=== PATIENT | female | born 1935 | race Caucasian/White ===

== ENCOUNTER 2017-10-27 11:05 | Emergency (ER) | payer MEDICARE, OTHER, SELFPAY ==
[2017-10-27 11:08] VITALS: BP 186/108; PULSE 92; RESP 20; TEMP 37.2; O2SAT 94
--- NOTE | 2017-10-27 11:30 | ED_ITS ---
HPI - Nausea/Vomiting/Diarrhea General Chief complaint: Nausea/Vomiting/Diarrhea Stated complaint: N/V Time Seen by Provider: 10/27/17 11:14 Source: patient and EMS Mode of arrival: EMS Limitations: no limitations History of Present Illness HPI Narrative: Patient is a 82-year-old female who presents with nausea vomiting and diarrhea. She has a history of cyclic vomiting. She was recently admitted in September at [facility] for the same She was found to be hypokalemic at that time. She started vomiting yesterday and having diffuse abdominal pain as well. No fever or chills she is being treated for a yeast infection. She complains of pain all over her abdomen. She has episodes of cyclic vomiting according to records. She has constant nausea which has been ongoing for a number of years. Related Data Home Medications Medication Instructions Recorded Confirmed fluticasone 50 mcg/actuation nasal 1 spray NASAL DAILY 08/10/17 10/27/17 spray,suspension Spacer: Inhaler Spacer Device 1 ea MISCELLANEOUS DIRECTED 10/27/17 10/27/17 albuterol sulfate [Proventil HFA] 2 puff INHALATION Q6H PRN 10/27/17 10/27/17 atorvastatin 80 mg PO QPM 10/27/17 10/27/17 fluconazole 150 mg PO QWEEK 10/27/17 10/27/17 metoprolol tartrate 50 mg PO BID 10/27/17 10/27/17 omega 9-mtn-vvx-fish oil [Fish Oil] 1 cap PO DAILY 10/27/17 10/27/17 ondansetron HCl [Zofran] 4 mg PO Q6H PRN 10/27/17 10/27/17 pantoprazole 40 mg PO DAILY 10/27/17 10/27/17 warfarin 1.5 mg PO QPM 10/27/17 10/27/17 Previous Rx's Medication Instructions Recorded loratadine 10 mg PO QDAY #90 tab 05/28/16 nitroglycerin [Nitrostat] 0.4 mg SUBLINGUAL PRN PRN #25 tab 04/20/17 hydrocodone 5 mg-acetaminophen 325 1 tab PO BID PRN #60 tab 10/12/17 mg tablet Allergies Allergy/AdvReac Type Severity Reaction Status Date / Time furosemide [FUROSEMIDE] Allergy Mild RASH Verified 10/27/17 12:11 sertraline [SERTRALINE] Allergy Mild FEELS Verified 10/27/17 12:11 DRUGGED lisinopril AdvReac Mild Cough Verified 10/27/17 13:10 Review of Systems Review of Systems GENERAL: Denies chills, fatigue, malaise, fever, sweats, travel HEENT: Denies sinus pain, ear pain, sore throat, difficulty swallowing, neck pain RESPIRATORY: Denies dyspnea, cough, wheezing, hemoptysis, sputum. CARDIOVASCULAR: Denies chest pain, palpitations, orthopnea, edema GASTROINTESTINAL: Denies nausea, vomiting, abdominal pain, diarrhea, constipation, melena. : Denies dysuria, frequency, incontinence, hematuria, urinary retention, flank pain. MUSCULOSKELETAL: Denies weakness, joint pain, or bony pain SKIN: No rash, no erythema, no pruritus NEUROLOGIC: Denies weakness, dizziness, headache, numbness, change in speech, confusion PSYCHIATRIC: No concerning psychosocial issues. 12 point review of systems is negative except for those stated above and HPI All systems reviewed & are unremarkable except as noted in HPI and below Constitutional Denies chills, Denies fever(s), Denies lethargy and Denies weakness Eyes Comments: Left eye twitching Cardiovascular Denies chest pain, Denies irregular heart rhythm, Denies lightheadedness, Denies palpitations, Denies dyspnea, Denies dyspnea on exertion and Denies orthopnea Respiratory Denies cough, Denies dyspnea, Denies dyspnea on exertion and Denies wheezing Gastrointestinal Gastrointestinal: Reports as per HPI Musculoskeletal Denies back pain, Denies muscle weakness, Denies numbness and Denies tingling Integumentary/Breasts Denies pruritus, Denies erythema, Denies rash and Denies wounds Neurologic Denies numbness, Denies tingling and Denies weakness Endocrine Denies palpitations Allergic/Immunologic Denies wheezing [facility] Medical History 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) Essential hypertension (Chronic 02/19/12) History of colon polyps (Resolved 02/19/12) Personal history of other malignant neoplasm of skin (Resolved 02/19/12) Protein C deficiency (Chronic ~05/2017) 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) Obesity with body mass index (BMI) of 30.0 to 39.9 (Chronic 02/19/12) Systolic congestive heart failure with reduced left ventricular function, NYHA class 2 (Chronic 10/26/10) Cerebrovascular accident (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 right middle cerebral artery ( Inactive 04/27/17) Anxiety (Chronic) Asthma (Chronic) CAD (coronary artery disease) (Chronic) Cervical cancer, FIGO stage I (Chronic) Cholelithiasis (Chronic) Chronic back pain (Chronic) Developmental disorder (Chronic) Fibrocystic breast disease (Chronic) GERD (gastroesophageal reflux disease) (Chronic) Hyperlipidemia (Chronic) IBS (irritable bowel syndrome) (Chronic) Breast cancer (Resolved ~2001) Measles (Resolved) Surgical History Anesthesia (Inactive) Status post arthroscopy Status post biopsy (~2014) Status post breast lumpectomy (~2008) Status post cholecystectomy Status post coronary artery bypass graft Status post hysterectomy (~2009) Social History Smoking Status: Never smoker Exam Initial Vital Signs Initial Vital Signs: Vital Signs Temperature 99.0 F 10/27/17 11:08 Pulse Rate 92 H 10/27/17 11:08 Respiratory Rate 20 10/27/17 11:08 Blood Pressure 186/108 H 10/27/17 11:08 Pulse Oximetry 94 10/27/17 11:08 GENERAL: Alert frail elderly female HEENT: Head atraumatic,EOMI, pupils reactive, left-sided facial droop, left facial twitching CARDIOVASCULAR: Regular rate and rhythm without murmurs, rubs or gallops. RESPIRATORY: Breath sounds equal bilaterally, no wheezes rales or rhonchi. ABDOMEN: Soft, diffusely tender with no localization no guarding no rebound EXTREMITIES: Normal range of motion, no clubbing or edema. Neurovascularly intact NEUROLOGICAL: Alert and oriented x4. Left-sided facial droop at baseline when facial twitching is in 10 she does have difficulty speaking but otherwise no significant a seizure or dysarthria pump technician strength is equal bilaterally SKIN: Warm, dry, no laceration, no petechiae, no rashes or lesions. Course Orders Ordered: ED Orders 10/27/17 11:18 EKG-12 Lead Stat 10/27/17 11:32 Complete Blood Count AUTO DIFF Stat Comprehensive Metabolic Panel Stat Lactate (Lactic Acid) Stat Partial Thromboplastin Time Stat Prothrombin Time INR Stat Troponin & CK Cardiac Panel Stat 10/27/17 12:20 CT abdomen pelvis w con Stat 10/27/17 13:48 CT head/brain w con Stat Discontinued Medications Sodium Chloride (Normal Saline 0.9%) 1,000 mls @ 200 mls/hr IV BOLUS ONE Stop: 10/27/17 16:17 Last Infusion: 10/27/17 14:49 Dose: 0 mls/hr Infusion: 10/27/17 12:52 Dose: 200 mls/hr Infusion: 10/27/17 12:23 Dose: 0 mls/hr Admin: 10/27/17 11:39 Dose: 200 mls/hr Ondansetron HCl (Zofran) 4 mg IV NOW ONE Stop: 10/27/17 11:19 Last Admin: 10/27/17 11:41 Dose: 4 mg Vital Signs - 8 hr 10/27/17 11:08 10/27/17 11:44 10/27/17 13:00 Temperature 99.0 F Pulse Rate 92 H 96 H 96 H Respiratory Rate 20 19 Blood Pressure 186/108 H Blood Pressure [Left Arm] 172/77 H 166/71 H Pulse Oximetry 94 93 94 10/27/17 14:12 Temperature Pulse Rate 91 H Respiratory Rate 16 Blood Pressure Blood Pressure [Left Arm] 136/76 Pulse Oximetry 96 MDM - Nausea/Vomiting/Diarrhea Lab Data Attestation: I reviewed the patient's lab results. Result diagrams: 10/27/17 11:32 10/27/17 11:32 Lab Results 10/27/17 10/27/17 10/27/17 Range/Units 11:32 11:32 11:32 WBC 8.5 (4.5-11.0) X10^3/uL RBC 4.09 (4.0-5.2) X10^6/uL Hgb 12.2 (12.0-16.0) g/dL Hct 37.0 (36-46) % MCV 90.4 (80-100) fL MCH 29.8 (26-34) PG MCHC 32.9 (30-36) % RDW 21.7 H (11.6-14.8) % Plt Count 276 (150-400) X10^3/uL Neut % (Auto) 86.3 H (50-75) % Lymph % (Auto) 10.1 L (25-40) % [place] % (Auto) 3.2 (3-14) % Eos % (Auto) 0.1 L (2-4) % Baso % (Auto) 0.3 (0-2) % Neut # (Auto) 7300 H (2647-5573) /uL RBC Morphology Not Reportable Anisocytosis 1+ H PT (10.1-12.7) SECONDS INR (0.9-1.3) APTT (26.4-36.2) SECONDS Sodium 142 (137-145) mmol/L Potassium 3.8 (3.4-5.1) mmol/L Chloride 101 (98-107) mmol/L Carbon Dioxide 32 (22-32) mmol/L BUN 5 L (7-17) mg/dL Creatinine 0.50 L (0.52-1.04) mg/dL Estimated GFR > 60.0 (>60) mL/min BUN/Creatinine Ratio 10.0 (6-22) Glucose 120 H (80-110) mg/dL Lactate 1.0 (0.7-2.1) mmol/L Calcium 8.6 (8.4-10.2) mg/dL Total Bilirubin 1.0 (0.2-1.3) mg/dL AST 18 (14-36) IU/L ALT 25 (9-52) IU/L Alkaline Phosphatase 113 (38-126) U/L Total Creatine Kinase 60 (30-135) U/L Troponin I < 0.012 (0.01-0.034) ng/mL Total Protein 6.4 (6.3-8.2) g/dL Albumin 3.3 L (3.5-5.0) g/dL Globulin 3.1 (1.7-4.1) g/dL Albumin/Globulin Ratio 1.1 (1.0-2.8) 10/27/17 Range/Units 11:32 WBC (4.5-11.0) X10^3/uL RBC (4.0-5.2) X10^6/uL Hgb (12.0-16.0) g/dL Hct (36-46) % MCV (80-100) fL MCH (26-34) PG MCHC (30-36) % RDW (11.6-14.8) % Plt Count (150-400) X10^3/uL Neut % (Auto) (50-75) % Lymph % (Auto) (25-40) % [place] % (Auto) (3-14) % Eos % (Auto) (2-4) % Baso % (Auto) (0-2) % Neut # (Auto) (6308-2611) /uL RBC Morphology Anisocytosis PT 35.3 H (10.1-12.7) SECONDS INR 3.2 H (0.9-1.3) APTT 48 H (26.4-36.2) SECONDS Sodium (137-145) mmol/L Potassium (3.4-5.1) mmol/L Chloride (98-107) mmol/L Carbon Dioxide (22-32) mmol/L BUN (7-17) mg/dL Creatinine (0.52-1.04) mg/dL Estimated GFR (>60) mL/min BUN/Creatinine Ratio (6-22) Glucose (80-110) mg/dL Lactate (0.7-2.1) mmol/L Calcium (8.4-10.2) mg/dL Total Bilirubin (0.2-1.3) mg/dL AST (14-36) IU/L ALT (9-52) IU/L Alkaline Phosphatase (38-126) U/L Total Creatine Kinase (30-135) U/L Troponin I (0.01-0.034) ng/mL Total Protein (6.3-8.2) g/dL Albumin (3.5-5.0) g/dL Globulin (1.7-4.1) g/dL Albumin/Globulin Ratio (1.0-2.8) Point of Care Testing Glucose POC 103 Urine Dip Bedside Urine Glucose Negative Bedside Urine Bilirubin - Negative Bedside Urine Ketone +/- 5 Urine Specific [place] 1.015 Bedside Urine Occult Blood - Negative Bedside Urine pH 6.0 Bedside Urine Protein - Negative Bedside Urine Urobilinogen - Negative Bedside Urine Nitrite - Negative Bedside Urine Leukocytes - Negative Esterase Imaging Data CT scan - abdomen: Radiologist's impression: PROCEDURE: CT ABDOMEN PELVIS W CON INDICATIONS: Vomiting and nausea TECHNIQUE: After the administration of oral and intravenous contrast, 5 mm thick sections acquired from the diaphragms to the symphysis. 5 mm thick coronal and sagittal reformats were performed. For radiation dose reduction, the following was used: automated exposure control, adjustment of mA and/or kV according to patient size. COMPARISON: [facility], CT, ABDOMEN/PELVIS WITH CONTRAST, 05/13/2017, 20: 38. FINDINGS: Image quality: Excellent. ABDOMEN: Lung bases: There is mild dependent atelectasis. Heart size is mildly enlarged. There is a small hiatal hernia. Solid organs: There is mild focal fatty infiltration in the anterior left hepatic lobe. The gallbladder surgically absent. There is mild extrahepatic biliary ductal dilatation likely associated with prior cholecystectomy. There is mild fatty atrophy of the pancreatic head and uncinate process. No pancreatic duct dilatation. No discrete pancreatic mass identified. Spleen is normal in size and enhancement. No adrenal nodules. There is a small right renal cyst. No hydronephrosis. Peritoneum and bowel: Although there is incomplete distention of the stomach, there is suggestion of gastric wall thickening. Small bowel and colon loops are normal in caliber and wall thickness. No pericecal inflammatory changes to suggest appendicitis. No free fluid or air. Nodes and vessels: No retroperitoneal or mesenteric adenopathy. Aorta and inferior vena cava are normal in caliber. Miscellaneous: No ventral hernias. PELVIS: Genitourinary: Bladder wall thickness is normal. Miscellaneous: No inguinal hernias or adenopathy. Bones: No suspicious bony lesions. No vertebral body compression fractures. IMPRESSION: 1. Probable gastric wall thickening with evaluation limited by nondistention of the stomach. The findings suggest a nonspecific gastritis and correlation is recommended with clinical symptoms. 2. No evidence of bowel obstruction. Dictated by: Cirilo Farrell M.D. on 10/27/2017 at 12:57 CT scan - head: Radiologist's impression: PROCEDURE: CT HEAD/BRAIN W CON INDICATIONS: headache left facial twitch, hx of cva on coumadin TECHNIQUE: 4.5 mm thick angled axial sections acquired from the foramen magnum to the vertex after the administration of intravenous contrast, with coronal and sagittal reformats. For radiation dose reduction, the following was used: automated exposure control, adjustment of mA and/or kV according to patient size. COMPARISON: [facility], CT, HEAD WITHOUT CONTRAST, 04/20/2017, 13:22. FINDINGS: Image quality: Excellent. CSF Spaces: Basal cisterns are patent. No extra-axial fluid collections. Ventricles are normal in size and shape. Brain: No midline shift. Large right-sided temporoparietal encephalomalacia in keeping with evolving infarct since 04/20/17. Anterior falx calcification Low right and No intracranial bleeds or masses. No abnormal intracranial enhancement. Cali-white interface appears normal. Skull and face: Calvarium and visualized facial bones appear intact, without suspicious lesions. There is mild left periorbital soft tissue swelling Sinuses: Visualized sinuses and mastoids are clear. IMPRESSION: No acute intracranial process. Large right temporoparietal infarct with expected evolutionary change since Mild left periorbital soft tissue swelling Dictated by: Eh Martinez M.D. on 10/27/2017 at 14:06 [facility] Narrative Medical decision making narrative: I have discussed the CT abdomen and blood work with patient and patient's family. She is actually tolerating oral fluids. However she says she has a headache in increasing facial twitching. Her INR is noted to be slightly therapeutic. MORNING CAREGIVER had a CT abdomen however it has been long enough we will get a noncontrasted CT head to be sure there is no intracranial hemorrhage. CT head is negative. This is likely patient's chronic ongoing cyclic vomiting. Blood work is within normal limits on CTs did not show any abnormalities. The family feels ready and able to take her home. The facial twitching has actually improved with a little bit of IV fluids. She really has no she new stroke symptoms Discharge Plan Departure Patient Disposition: Home Clinical Impression: Nausea & vomiting, Facial twitching Discharge Date/Time: 10/27/17 14:50 Interventions: ED Discharge Assessment Last Done: 10/27/17 14:49 Instructions: Dehydration, Clear Liquid Diet Activity Restrictions/Additional Instructions: *You have been diagnosed with cyclic vomiting, facial twitching *What to do: 1 vomiting start, use oral anti nausea medications at home, try of Gatorade or Gatorade like substance small amounts frequently *Continue to take medications as directed *Follow up with your primary care provider in 2-3 days *Return to ER if you should have persistent vomiting, increased abdominal pain, inability to take medications for days or any new, worsening or concerning symptoms Prescriptions: No Action loratadine 10 MG tablet 10 mg PO QDAY Qty: 90 RF: 1 nitroglycerin [Nitrostat] 0.4 MG tablet, sublingual 0.4 mg Sublingual PRN PRNQty: 25 RF: 0 hydrocodone-acetaminophen 5-325 mg tablet 1 tab PO BID PRN (Reason: pain) Qty: 60 RF: 0 fluticasone 50 mcg/actuation spray,suspension 1 spray NASAL DAILY RF: 0 fluconazole 150 mg tablet 150 mg PO QWEEK RF: 0 warfarin 3 mg tablet 1.5 mg PO QPM RF: 0 omega 9-xgt-ebn-fish oil [Fish Oil] 1,000 mg (120 mg-180 mg) Capsule 1 cap PO DAILY RF: 0 atorvastatin 80 mg tablet 80 mg PO QPM RF: 0 ondansetron HCl [Zofran] 4 mg tablet 4 mg PO Q6H PRN (Reason: nausea and vomiting) RF: 0 pantoprazole 40 mg tablet,delayed release (DR/EC) 40 mg PO DAILY RF: 0 metoprolol tartrate 50 mg tablet 50 mg PO BID RF: 0 albuterol sulfate [Proventil HFA] 90 mcg/actuation HFA aerosol inhaler 2 puff INHALATION Q6H PRN (Reason: shortness of breath or wheezing) RF: 0 Spacer: Inhaler Spacer Device 1 ea miscellaneous DIRECTED RF: 0 Referrals: Heather Tapia DO [Primary Care Provider] -
[2017-10-27] MEDS: SODIUM CHLORIDE 0.9% 1,000 ML 200 ML IV (11:39)
[2017-10-27] MEDS: ONDANSETRON 4 MG/2 ML INJ IV (11:41)
[2017-10-27 11:44] VITALS: BP 172/77; PULSE 96; O2SAT 93
[2017-10-27 11:45] LABS: Add Manual Diff / Slide Review NO; Basophils Percent Auto 0.3 % (0-2); Eosinophils Percent Auto 0.1 % (2-4); Hemoglobin 12.2 g/dL (12.0-16.0); Lymphocytes Percent Auto 10.1 % (25-40); Mean Corpuscular HGB Conc 32.9 % (30-36); Mean Corpuscular Hemoglobin 29.8 PG (26-34); Mean Corpuscular Volume 90.4 fL (80-100); Monocytes Percent Auto 3.2 % (3-14); Neutrophils Absolute Auto 7300 /uL (3000-5900); Neutrophils Percent Auto 86.3 % (50-75); Platelet Count 276 X10^3/uL (150-400); Red Blood Cell Count 4.09 X10^6/uL (4.0-5.2); Red Cell Distribution Width 21.7 % (11.6-14.8); White Blood Cell Count 8.5 X10^3/uL (4.5-11.0)
[2017-10-27 11:55] LABS: INR 3.2 (0.9-1.3); Prothrombin Time 35.3 SECONDS (10.1-12.7)
[2017-10-27 11:57] LABS: Alanine Aminotransferase 25 IU/L (9-52); Albumin 3.3 g/dL (3.5-5.0); Albumin Globulin Ratio 1.1 (1.0-2.8); Alkaline Phosphatase 113 U/L (38-126); Aspartate Aminotransferase 18 IU/L (14-36); Blood Urea Nitrogen 5 mg/dL (7-17); Calcium 8.6 mg/dL (8.4-10.2); Carbon Dioxide 32 mmol/L (22-32); Chloride 101 mmol/L (98-107); Creatine Kinase 60 U/L (30-135); Estimated Glomerular Filt Rate > 60.0 mL/min (>60); Globulin 3.1 g/dL (1.7-4.1); Glucose 120 mg/dL (80-110); HEMOLYSIS < 15 (0-50); Potassium 3.8 mmol/L (3.4-5.1); Sodium 142 mmol/L (137-145); Total Protein 6.4 g/dL (6.3-8.2)
[2017-10-27 11:58] LABS: PTT Partial Thromboplastin Tim 48 SECONDS (26.4-36.2)
[2017-10-27 12:09] LABS: Anisocytosis 1+; Troponin I < 0.012 ng/mL (0.01-0.034)
--- NOTE | 2017-10-27 12:20 | DI.CT.S_ITS ---
PROCEDURE: CT ABDOMEN PELVIS W CON INDICATIONS: Vomiting and nausea TECHNIQUE: After the administration of oral and intravenous contrast, 5 mm thick sections acquired from the diaphragms to the symphysis. 5 mm thick coronal and sagittal reformats were performed. For radiation dose reduction, the following was used: automated exposure control, adjustment of mA and/or kV according to patient size. COMPARISON: Located [facility], CT, ABDOMEN/PELVIS WITH CONTRAST, 05/13/2017, 20:38. FINDINGS: Image quality: Excellent. ABDOMEN: Lung bases: There is mild dependent atelectasis. Heart size is mildly enlarged. There is a small hiatal hernia. Solid organs: There is mild focal fatty infiltration in the anterior left hepatic lobe. The gallbladder surgically absent. There is mild extrahepatic biliary ductal dilatation likely associated with prior cholecystectomy. There is mild fatty atrophy of the pancreatic head and uncinate process. No pancreatic duct dilatation. No discrete pancreatic mass identified. Spleen is normal in size and enhancement. No adrenal nodules. There is a small right renal cyst. No hydronephrosis. Peritoneum and bowel: Although there is incomplete distention of the stomach, there is suggestion of gastric wall thickening. Small bowel and colon loops are normal in caliber and wall thickness. No pericecal inflammatory changes to suggest appendicitis. No free fluid or air. Nodes and vessels: No retroperitoneal or mesenteric adenopathy. Aorta and inferior vena cava are normal in caliber. Miscellaneous: No ventral hernias. PELVIS: Genitourinary: Bladder wall thickness is normal. Miscellaneous: No inguinal hernias or adenopathy. Bones: No suspicious bony lesions. No vertebral body compression fractures. IMPRESSION: 1. Probable gastric wall thickening with evaluation limited by nondistention of the stomach. The findings suggest a nonspecific gastritis and correlation is recommended with clinical symptoms. 2. No evidence of bowel obstruction. Dictated by: Cirilo Farrell M.D. on 10/27/2017 at 12:57 Approved by: Cirilo Farrell M.D. on 10/27/2017 at 13:04
[2017-10-27 13:00] VITALS: BP 166/71; PULSE 96; RESP 19; O2SAT 94
--- NOTE | 2017-10-27 13:48 | DI.CT.S_ITS ---
PROCEDURE: CT HEAD/BRAIN W CON INDICATIONS: headache left facial twitch, hx of cva on coumadin TECHNIQUE: 4.5 mm thick angled axial sections acquired from the foramen magnum to the vertex after the administration of intravenous contrast, with coronal and sagittal reformats. For radiation dose reduction, the following was used: automated exposure control, adjustment of mA and/or kV according to patient size. COMPARISON: [facility], CT, HEAD WITHOUT CONTRAST, 04/20/2017, 13:22. FINDINGS: Image quality: Excellent. CSF Spaces: Basal cisterns are patent. No extra-axial fluid collections. Ventricles are normal in size and shape. Brain: No midline shift. Large right-sided temporoparietal encephalomalacia in keeping with evolving infarct since 04/20/17. Anterior falx calcification Low right and No intracranial bleeds or masses. No abnormal intracranial enhancement. Cali-white interface appears normal. Skull and face: Calvarium and visualized facial bones appear intact, without suspicious lesions. There is mild left periorbital soft tissue swelling Sinuses: Visualized sinuses and mastoids are clear. IMPRESSION: No acute intracranial process. Large right temporoparietal infarct with expected evolutionary change since 04/20/17 Mild left periorbital soft tissue swelling Dictated by: Eh Martinez M.D. on 10/27/2017 at 14:06 Approved by: Eh Martinez M.D. on 10/27/2017 at 14:16
[2017-10-27 14:12] VITALS: BP 136/76; PULSE 91; RESP 16; O2SAT 96
== END 2017-10-27 14:50 | disposition home or self-care (01) ==
PROVIDERS: Emergency Provider Emergency Medicine; PCP Family Medicine
DX: R11.2 Nausea with vomiting, unspecified (principal); G51.4 Facial myokymia; I10 Essential (primary) hypertension; R10.9 Unspecified abdominal pain
CPT/HCPCS: 36591; 70460; 74177; 80053; 81003; 82550; 82553; 83605; 84484; 85025; 85610; 85730; 93005; 93010; 96361; 96374; 99283; 99285; J2405; Q9967

== ENCOUNTER 2017-12-03 15:51 | Emergency (ER) | payer MEDICARE, OTHER, SELFPAY ==
--- NOTE | 2017-12-03 15:43 | ED.SYNCOPE ---
HPI - Syncope <RADHA Matson - Last Filed: 12/03/17 22:15> General Chief Complaint: Syncope Stated Complaint: Syncope Time Seen by Provider: 12/03/17 15:52 Source: patient Mode of arrival: EMS Limitations: no limitations History of Present Illness HPI narrative: 82-year-old female with history of CVA and is a nonsmoker here for complaint of having a syncopal episode earlier today. She was at the dentist office and was getting ready to leave the dentist's office when she passed out in the wheelchair. She had a bowel movement at this timeframe. She denies any new neurological deficits over neurological due since from a prior strokes. She denies any fevers or chills. No shortness of breath no chest pain. She is alert and awake and oriented x3. She remembers just prior to the syncopal episode and then less than 30 sec later waking up. She denies any other concerns or complaints at this time. She denies any headache. She denies any head trauma. Related Data Home Medications Medication Instructions Recorded Confirmed Spacer: Inhaler Spacer Device 1 ea MISCELLANEOUS DIRECTED 10/27/17 12/03/17 albuterol sulfate [Proventil HFA] 2 puff INHALATION Q6H PRN 10/27/17 12/03/17 atorvastatin 80 mg PO QPM 10/27/17 12/03/17 metoprolol tartrate 50 mg PO BID 10/27/17 12/03/17 pantoprazole 40 mg PO BID 10/27/17 12/03/17 warfarin 1.5 mg PO QPM 10/27/17 12/03/17 mupirocin 1 applic TOPICAL DIRECTED 12/03/17 12/03/17 nitroglycerin [Nitrostat] 0.4 mg SUBLINGUAL PRN PRN 12/03/17 12/03/17 Previous Rx's Medication Instructions Recorded hydrocodone 5 mg-acetaminophen 325 1 tab PO Q6H PRN #120 tab 11/12/17 mg tablet gabapentin 100 mg capsule 100 mg PO Q8H #90 cap 11/30/17 Allergies Allergy/AdvReac Type Severity Reaction Status Date / Time furosemide [FUROSEMIDE] Allergy Mild RASH Verified 11/30/17 15:40 sertraline [SERTRALINE] Allergy Mild FEELS Verified 11/30/17 15:40 DRUGGED lisinopril AdvReac Mild Cough Verified 11/30/17 15:40 Review of Systems <RADHA Matson - Last Filed: 12/03/17 22:15> Constitutional Denies chills, Denies fatigue, Denies fever(s), Denies lethargy and Denies weakness Eyes Denies change in vision, Denies eye discharge, Denies irritation and Denies loss of vision ENT Ears, Nose, Mouth, and Throat: Denies change in voice, Denies neck pain and Denies sore throat Cardiovascular Reports syncope, Denies dyspnea and Denies dyspnea on exertion Respiratory Denies cough, Denies dyspnea, Denies dyspnea on exertion and Denies wheezing Gastrointestinal Gastrointestinal: Denies abdominal pain, Denies change in bowel habits, Denies diarrhea, Denies nausea and Denies vomiting Musculoskeletal Denies neck pain Integumentary/Breasts Denies pruritus, Denies erythema, Denies rash and Denies wounds Neurologic Denies confusion, Reports syncope, Denies loss of vision and Denies weakness Psychiatric Denies anxiety, Denies confusion, Denies depression, Denies homicidal ideation and Denies suicidal ideation Endocrine Denies fatigue and Denies flushing Hematologic/Lymphatic Denies easy bruising Allergic/Immunologic Denies wheezing Exam <RADHA Matson - Last Filed: 12/03/17 22:15> Initial Vital Signs Initial Vital Signs: Vital Signs Temperature 98.7 F 12/03/17 16:03 Pulse Rate 74 12/03/17 16:03 Respiratory Rate 19 12/03/17 16:03 Blood Pressure 153/114 H 12/03/17 16:03 Pulse Oximetry 96 12/03/17 16:03 Const General: cooperative and well developed Nutritional Appearance: well nourished Orientation: alert, awake, oriented x3 and not confused [facility] Mouth: oral mucosae normal and moist mucous membranes Eyes Conjunctivae: conjunctivae normal Sclera: sclerae normal Pupils: PERRL EOM: EOM intact bilaterally Resp Effort & Inspection: normal respiratory effort, able to speak in complete sentences, no respiratory distress and no use of accessory muscles Auscultation: clear to auscultation bilaterally, no rales, no rhonchi and no wheezes Cardio Rate: regular rate Rhythm: regular rhythm Heart Sounds: no click, no gallops, no murmurs and no rubs Pulses: normal peripheral pulses GI Inspection: non-distended Palpation: soft, no hepatosplenomegaly, No guarding, No pulsatile mass and No tender Auscultation: normal bowel sounds Skin General: no rashes or lesions noted, No jaundice and No petechiae Neuro General: alert, oriented x3, gait normal and no focal motor deficits Speech: speech normal Extrem General: full ROM, no clubbing, cyanosis or edema, no pedal edema and no calf tenderness <Janak Rincon DO - Last Filed: 12/04/17 07:12> Initial Vital Signs Initial Vital Signs: Vital Signs Temperature 98.7 F 12/03/17 16:03 Pulse Rate 74 12/03/17 16:03 Respiratory Rate 19 12/03/17 16:03 Blood Pressure 153/114 H 12/03/17 16:03 Pulse Oximetry 96 12/03/17 16:03 Course <RADHA Matson - Last Filed: 12/03/17 22:15> Orders Ordered: Discontinued Medications Sodium Chloride (Normal Saline 0.9%) 500 mls @ 1,000 mls/hr IV BOLUS ONE Stop: 12/03/17 19:52 Last Admin: 12/03/17 19:24 Dose: 1,000 mls/hr Vital Signs - 8 hr 12/03/17 16:03 12/03/17 18:35 12/03/17 20:34 Temperature 98.7 F 98.6 F Pulse Rate 74 82 82 Respiratory Rate 19 18 20 Blood Pressure 153/114 H 155/67 H Blood Pressure [Left Arm] 166/93 H Pulse Oximetry 96 97 97 <Janak Rincon DO - Last Filed: 12/04/17 07:12> Orders Ordered: Discontinued Medications Sodium Chloride (Normal Saline 0.9%) 500 mls @ 1,000 mls/hr IV BOLUS ONE Stop: 12/03/17 19:52 Last Admin: 12/03/17 19:24 Dose: 1,000 mls/hr Vital Signs - 8 hr 12/03/17 16:03 12/03/17 18:35 12/03/17 20:34 Temperature 98.7 F 98.6 F Pulse Rate 74 82 82 Respiratory Rate 19 18 20 Blood Pressure 153/114 H 155/67 H Blood Pressure [Left Arm] 166/93 H Pulse Oximetry 96 97 97 MDM - Syncope <Taqueria RADHA Ram - Last Filed: 12/03/17 22:15> Lab Data Result diagrams: 12/03/17 16:50 12/03/17 16:50 Lab Results 12/03/17 12/03/17 12/03/17 Range/Units 16:50 16:50 19:08 WBC 8.7 (4.5-11.0) X10^3/uL RBC 3.82 L (4.0-5.2) X10^6/uL Hgb 12.0 (12.0-16.0) g/dL Hct 37.2 (36-46) % MCV 97.4 (80-100) fL MCH 31.3 (26-34) PG MCHC 32.1 (30-36) % RDW 16.5 H (11.6-14.8) % Plt Count 216 (150-400) X10^3/uL Neut % (Auto) 72.1 (50-75) % Lymph % (Auto) 20.1 L (25-40) % [place] % (Auto) 6.5 (3-14) % Eos % (Auto) 0.7 L (2-4) % Baso % (Auto) 0.6 (0-2) % Neut # (Auto) 6300 H (9145-0900) /uL PT 21.4 H (10.1-12.7) SECONDS INR 2.0 H (0.9-1.3) Sodium 141 (137-145) mmol/L Potassium 3.9 (3.4-5.1) mmol/L Chloride 105 (98-107) mmol/L Carbon Dioxide 28 (22-32) mmol/L BUN 6 L (7-17) mg/dL Creatinine 0.50 L (0.52-1.04) mg/dL Estimated GFR > 60.0 (>60) mL/min BUN/Creatinine Ratio 12.0 (6-22) Glucose 94 (80-110) mg/dL Calcium 8.6 (8.4-10.2) mg/dL Total Bilirubin 0.9 (0.2-1.3) mg/dL AST 18 (14-36) IU/L ALT 20 (9-52) IU/L Alkaline Phosphatase 95 (38-126) U/L Total Creatine Kinase 29 L (30-135) U/L CK-MB (CK-2) TNP CK-MB (CK-2) Rel Index TNP Troponin I < 0.012 (0.01-0.034) ng/mL Total Protein 6.5 (6.3-8.2) g/dL Albumin 3.4 L (3.5-5.0) g/dL Globulin 3.1 (1.7-4.1) g/dL Albumin/Globulin Ratio 1.1 (1.0-2.8) 12/03/17 Range/Units 19:08 WBC (4.5-11.0) X10^3/uL RBC (4.0-5.2) X10^6/uL Hgb (12.0-16.0) g/dL Hct (36-46) % MCV (80-100) fL MCH (26-34) PG MCHC (30-36) % RDW (11.6-14.8) % Plt Count (150-400) X10^3/uL Neut % (Auto) (50-75) % Lymph % (Auto) (25-40) % [place] % (Auto) (3-14) % Eos % (Auto) (2-4) % Baso % (Auto) (0-2) % Neut # (Auto) (9299-9591) /uL PT (10.1-12.7) SECONDS INR (0.9-1.3) Sodium (137-145) mmol/L Potassium (3.4-5.1) mmol/L Chloride (98-107) mmol/L Carbon Dioxide (22-32) mmol/L BUN (7-17) mg/dL Creatinine (0.52-1.04) mg/dL Estimated GFR (>60) mL/min BUN/Creatinine Ratio (6-22) Glucose (80-110) mg/dL Calcium (8.4-10.2) mg/dL Total Bilirubin (0.2-1.3) mg/dL AST (14-36) IU/L ALT (9-52) IU/L Alkaline Phosphatase (38-126) U/L Total Creatine Kinase (30-135) U/L CK-MB (CK-2) CK-MB (CK-2) Rel Index Troponin I < 0.012 (0.01-0.034) ng/mL Total Protein (6.3-8.2) g/dL Albumin (3.5-5.0) g/dL Globulin (1.7-4.1) g/dL Albumin/Globulin Ratio (1.0-2.8) Imaging Data Chest x-ray: Radiologist's impression: [address] [id number] XRay Report Signed Patient: Chana Garrido [facility]#: [id number] : 8Acct:[id number] Age/Sex: 82 / FDate of Service: 12/03/17 Loc: ED Accession Number: [id number] Procedure: XR chest 1V Ordering Provider: Taqueria Ram PROCEDURE: XR CHEST 1V INDICATIONS: Syncopal episode TECHNIQUE: One view of the chest was acquired. COMPARISON: [facility], , CHEST 1 VIEW, 05/13/2017, 20:24. FINDINGS: Surgical changes and devices: Postoperative changes of the chest are again evident. Lungs and pleura: No pleural effusions or pneumothorax. Lungs are clear. Mediastinum: Mediastinal contours appear normal. Heart size is normal. There is aortic atherosclerosis. Bones and chest wall: No suspicious bony lesions. Overlying soft tissues appear unremarkable. IMPRESSION: Stable chest. No acute cardiopulmonary process is evident. Dictated by: Chris Aparicio M.D. on 12/03/2017 at 15:32 Approved by: Chris Aparicio M.D. on 12/03/2017 at 15:38 CT scan - head: Radiologist's impression: [address] [address] [address] Scan Report Signed Patient: Chana Garrido [facility]#: [id number] : 8Acct:[id number] Age/Sex: 82 / FDate of Service: 12/03/17 Loc: ED Accession Number: [id number] Procedure: CT head/brain wo con Ordering Provider: Taqueria Ram PROCEDURE: CT HEAD/BRAIN WO CON INDICATIONS: Syncopal episode TECHNIQUE: Noncontrast 4.5 mm thick angled axial sections acquired from the foramen magnum to the vertex, with coronal and sagittal reformats. For radiation dose reduction, the following was used: automated exposure control, adjustment of mA and/or kV according to patient size. COMPARISON: [facility], CT, CT HEAD WITHOUT CONTRAST, 10/29/2017, 19:14. [facility], CT, HEAD WITHOUT CONTRAST, 04/20/2017, 13:22. FINDINGS: Image quality: Excellent. CSF spaces: Basal cisterns are patent. No extra-axial fluid collections. The ventricles are symmetric in size and shape. Brain: No intracranial bleeds or masses. There is cerebral volume loss for age, with resultant ventricular and sulcal prominence. There are periventricular and deep white matter chronic small vessel ischemic changes. There is intracranial internal carotid artery atherosclerosis. Skull and face: Calvarium and visualized facial bones appear intact, without suspicious lesions. Chronic right frontal calcified scalp nodule, unchanged. Sinuses: Visualized sinuses and mastoids are clear. IMPRESSION: No acute intracranial process. 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 Dictated by: Eh Martinez M.D. on 12/03/2017 at 16:23 Approved by: Eh Martinez M.D. on 12/03/2017 at 16:27 ECG Data Interpretation: EKG shows normal sinus rhythm with no ST elevation or depression. No ectopy. Ventricular rate of 69. Pr interval 138. QRS duration of 85. QT of 428. MDM Narrative Medical decision making narrative: CBC and Chem panel were obtained were unremarkable. Two sets of cardiac enzymes were obtained were negative. INR was at 2.0. CT of the head was obtained was negative for any acute findings. Chest x-ray was obtained was negative for any acute findings. Signs and symptoms presents as syncopal episode secondary to a vasovagal event. [facility] with no complications. Patient states she was not able to provide a urine sample today she request request to go home at this point so is unable to rule out urinary tract infection. She is released home follow up with primary care provider in the next few days for re-evaluation. For any worsening symptoms return to the emergency room. <Janak Rincon, - Last Filed: 12/04/17 07:12> Lab Data Lab Results 12/03/17 12/03/17 12/03/17 Range/Units 16:50 16:50 19:08 WBC 8.7 (4.5-11.0) X10^3/uL RBC 3.82 L (4.0-5.2) X10^6/uL Hgb 12.0 (12.0-16.0) g/dL Hct 37.2 (36-46) % MCV 97.4 (80-100) fL MCH 31.3 (26-34) PG MCHC 32.1 (30-36) % RDW 16.5 H (11.6-14.8) % Plt Count 216 (150-400) X10^3/uL Neut % (Auto) 72.1 (50-75) % Lymph % (Auto) 20.1 L (25-40) % [place] % (Auto) 6.5 (3-14) % Eos % (Auto) 0.7 L (2-4) % Baso % (Auto) 0.6 (0-2) % Neut # (Auto) 6300 H (1358-9064) /uL PT 21.4 H (10.1-12.7) SECONDS INR 2.0 H (0.9-1.3) Sodium 141 (137-145) mmol/L Potassium 3.9 (3.4-5.1) mmol/L Chloride 105 (98-107) mmol/L Carbon Dioxide 28 (22-32) mmol/L BUN 6 L (7-17) mg/dL Creatinine 0.50 L (0.52-1.04) mg/dL Estimated GFR > 60.0 (>60) mL/min BUN/Creatinine Ratio 12.0 (6-22) Glucose 94 (80-110) mg/dL Calcium 8.6 (8.4-10.2) mg/dL Total Bilirubin 0.9 (0.2-1.3) mg/dL AST 18 (14-36) IU/L ALT 20 (9-52) IU/L Alkaline Phosphatase 95 (38-126) U/L Total Creatine Kinase 29 L (30-135) U/L CK-MB (CK-2) TNP CK-MB (CK-2) Rel Index TNP Troponin I < 0.012 (0.01-0.034) ng/mL Total Protein 6.5 (6.3-8.2) g/dL Albumin 3.4 L (3.5-5.0) g/dL Globulin 3.1 (1.7-4.1) g/dL Albumin/Globulin Ratio 1.1 (1.0-2.8) 12/03/17 Range/Units 19:08 WBC (4.5-11.0) X10^3/uL RBC (4.0-5.2) X10^6/uL Hgb (12.0-16.0) g/dL Hct (36-46) % MCV (80-100) fL MCH (26-34) PG MCHC (30-36) % RDW (11.6-14.8) % Plt Count (150-400) X10^3/uL Neut % (Auto) (50-75) % Lymph % (Auto) (25-40) % [place] % (Auto) (3-14) % Eos % (Auto) (2-4) % Baso % (Auto) (0-2) % Neut # (Auto) (0979-6639) /uL PT (10.1-12.7) SECONDS INR (0.9-1.3) Sodium (137-145) mmol/L Potassium (3.4-5.1) mmol/L Chloride (98-107) mmol/L Carbon Dioxide (22-32) mmol/L BUN (7-17) mg/dL Creatinine (0.52-1.04) mg/dL Estimated GFR (>60) mL/min BUN/Creatinine Ratio (6-22) Glucose (80-110) mg/dL Calcium (8.4-10.2) mg/dL Total Bilirubin (0.2-1.3) mg/dL AST (14-36) IU/L ALT (9-52) IU/L Alkaline Phosphatase (38-126) U/L Total Creatine Kinase (30-135) U/L CK-MB (CK-2) CK-MB (CK-2) Rel Index Troponin I < 0.012 (0.01-0.034) ng/mL Total Protein (6.3-8.2) g/dL Albumin (3.5-5.0) g/dL Globulin (1.7-4.1) g/dL Albumin/Globulin Ratio (1.0-2.8) Discharge Plan Departure Patient Disposition: Home Clinical Impression: Episode of syncope Discharge Date/Time: 12/03/17 20:35 Interventions: ED Discharge Assessment Last Done: 12/03/17 20:34 Instructions: DI for Syncope in Adults (Fainting) Activity Restrictions/Additional Instructions: Laboratory results today were unremarkable. CT of the head and chest x-ray were negative for any acute findings. Signs and symptoms presents as vasovagal response causing the fainting. Ensure you are drinking adequate fluid and adequate diet. Follow up with primary care provider in the next few days for re-evaluation. For any worsening symptoms return to the emergency room. Prescriptions: No Action hydrocodone-acetaminophen 5-325 mg tablet 1 tab PO Q6H PRN (Reason: pain) Qty: 120 RF: 0 gabapentin 100 mg capsule 100 mg PO Q8H Qty: 90 RF: 1 mupirocin 2 % ointment 1 applic Topical DIRECTED RF: 0 nitroglycerin [Nitrostat] 0.4 MG tablet, sublingual 0.4 mg Sublingual PRN PRN (Reason: Chest Pain) RF: 0 warfarin 3 mg tablet 1.5 mg PO QPM RF: 0 atorvastatin 80 mg tablet 80 mg PO QPM RF: 0 pantoprazole 40 mg tablet,delayed release (DR/EC) 40 mg PO BID RF: 0 metoprolol tartrate 50 mg tablet 50 mg PO BID RF: 0 albuterol sulfate [Proventil HFA] 90 mcg/actuation HFA aerosol inhaler 2 puff INHALATION Q6H PRN (Reason: shortness of breath or wheezing) RF: 0 Spacer: Inhaler Spacer Device 1 ea miscellaneous DIRECTED RF: 0 Referrals: Heather Tapia DO [Primary Care Provider] - <Janak Rincon DO - Last Filed: 12/04/17 07:12> Cosign ED Attending Arturoature Attestation: I was available for consultation during this patient's emergency department encounter
--- NOTE | 2017-12-03 16:01 | DI.RAD.S_ITS ---
PROCEDURE: XR CHEST 1V INDICATIONS: Syncopal episode TECHNIQUE: One view of the chest was acquired. COMPARISON: [facility], , CHEST 1 VIEW, 05/13/2017, 20:24. FINDINGS: Surgical changes and devices: Postoperative changes of the chest are again evident. Lungs and pleura: No pleural effusions or pneumothorax. Lungs are clear. Mediastinum: Mediastinal contours appear normal. Heart size is normal. There is aortic atherosclerosis. Bones and chest wall: No suspicious bony lesions. Overlying soft tissues appear unremarkable. IMPRESSION: Stable chest. No acute cardiopulmonary process is evident. Dictated by: Chris Aparicio M.D. on 12/03/2017 at 15:32 Approved by: Chris Aparicio M.D. on 12/03/2017 at 15:38
--- NOTE | 2017-12-03 16:01 | DI.CT.S_ITS ---
PROCEDURE: CT HEAD/BRAIN WO CON INDICATIONS: Syncopal episode TECHNIQUE: Noncontrast 4.5 mm thick angled axial sections acquired from the foramen magnum to the vertex, with coronal and sagittal reformats. For radiation dose reduction, the following was used: automated exposure control, adjustment of mA and/or kV according to patient size. COMPARISON: [facility], CT, CT HEAD WITHOUT CONTRAST, 10/29/2017, 19:14. [facility], CT, HEAD WITHOUT CONTRAST, 04/20/2017, 13:22. FINDINGS: Image quality: Excellent. CSF spaces: Basal cisterns are patent. No extra-axial fluid collections. The ventricles are symmetric in size and shape. Brain: No intracranial bleeds or masses. There is cerebral volume loss for age, with resultant ventricular and sulcal prominence. There are periventricular and deep white matter chronic small vessel ischemic changes. There is intracranial internal carotid artery atherosclerosis. Skull and face: Calvarium and visualized facial bones appear intact, without suspicious lesions. Chronic right frontal calcified scalp nodule, unchanged. Sinuses: Visualized sinuses and mastoids are clear. IMPRESSION: No acute intracranial process. 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 Dictated by: Eh Martinze M.D. on 12/03/2017 at 16:23 Approved by: Eh Martinez M.D. on 12/03/2017 at 16:27
[2017-12-03 16:03] VITALS: BP 153/114; PULSE 74; RESP 19; TEMP 37.1; O2SAT 96
[2017-12-03 17:10] LABS: Add Manual Diff / Slide Review NO; Basophils Percent Auto 0.6 % (0-2); Eosinophils Percent Auto 0.7 % (2-4); Hematocrit 37.2 % (36-46); Lymphocytes Percent Auto 20.1 % (25-40); Mean Corpuscular HGB Conc 32.1 % (30-36); Mean Corpuscular Hemoglobin 31.3 PG (26-34); Mean Corpuscular Volume 97.4 fL (80-100); Monocytes Percent Auto 6.5 % (3-14); Neutrophils Absolute Auto 6300 /uL (3000-5900); Neutrophils Percent Auto 72.1 % (50-75); Platelet Count 216 X10^3/uL (150-400); Red Blood Cell Count 3.82 X10^6/uL (4.0-5.2); Red Cell Distribution Width 16.5 % (11.6-14.8); White Blood Cell Count 8.7 X10^3/uL (4.5-11.0)
[2017-12-03 17:22] LABS: Alanine Aminotransferase 20 IU/L (9-52); Albumin 3.4 g/dL (3.5-5.0); Albumin Globulin Ratio 1.1 (1.0-2.8); Alkaline Phosphatase 95 U/L (38-126); Aspartate Aminotransferase 18 IU/L (14-36); Bilirubin Total 0.9 mg/dL (0.2-1.3); Blood Urea Nitrogen 6 mg/dL (7-17); Calcium 8.6 mg/dL (8.4-10.2); Carbon Dioxide 28 mmol/L (22-32); Chloride 105 mmol/L (98-107); Creatine Kinase 29 U/L (30-135); Estimated Glomerular Filt Rate > 60.0 mL/min (>60); Globulin 3.1 g/dL (1.7-4.1); Glucose 94 mg/dL (80-110); HEMOLYSIS 39 (0-50); Potassium 3.9 mmol/L (3.4-5.1); Sodium 141 mmol/L (137-145); Total Protein 6.5 g/dL (6.3-8.2)
[2017-12-03 17:48] LABS: Troponin I < 0.012 ng/mL (0.01-0.034)
[2017-12-03 18:35] VITALS: BP 166/93; PULSE 82; RESP 18; O2SAT 97
[2017-12-03 19:24] LABS: Prothrombin Time 21.4 SECONDS (10.1-12.7)
[2017-12-03] MEDS: SODIUM CHLORIDE 0.9% 500 ML 1000 ML IV (19:24)
[2017-12-03 19:46] LABS: Troponin I < 0.012 ng/mL (0.01-0.034)
--- NOTE | 2017-12-03 20:02 | ED_ITS ---
HPI - Syncope <RADHA Matson - Last Filed: 12/03/17 22:15> General Chief Complaint: Syncope Stated Complaint: Syncope Time Seen by Provider: 12/03/17 15:52 Source: patient Mode of arrival: EMS Limitations: no limitations History of Present Illness HPI narrative: 82-year-old female with history of CVA and is a nonsmoker here for complaint of having a syncopal episode earlier today. She was at the dentist office and was getting ready to leave the dentist's office when she passed out in the wheelchair. She had a bowel movement at this timeframe. She denies any new neurological deficits over neurological due since from a prior strokes. She denies any fevers or chills. No shortness of breath no chest pain. She is alert and awake and oriented x3. She remembers just prior to the syncopal episode and then less than 30 sec later waking up. She denies any other concerns or complaints at this time. She denies any headache. She denies any head trauma. Related Data Home Medications Medication Instructions Recorded Confirmed Spacer: Inhaler Spacer Device 1 ea MISCELLANEOUS DIRECTED 10/27/17 12/03/17 albuterol sulfate [Proventil HFA] 2 puff INHALATION Q6H PRN 10/27/17 12/03/17 atorvastatin 80 mg PO QPM 10/27/17 12/03/17 metoprolol tartrate 50 mg PO BID 10/27/17 12/03/17 pantoprazole 40 mg PO BID 10/27/17 12/03/17 warfarin 1.5 mg PO QPM 10/27/17 12/03/17 mupirocin 1 applic TOPICAL DIRECTED 12/03/17 12/03/17 nitroglycerin [Nitrostat] 0.4 mg SUBLINGUAL PRN PRN 12/03/17 12/03/17 Previous Rx's Medication Instructions Recorded hydrocodone 5 mg-acetaminophen 325 1 tab PO Q6H PRN #120 tab 11/12/17 mg tablet gabapentin 100 mg capsule 100 mg PO Q8H #90 cap 11/30/17 Allergies Allergy/AdvReac Type Severity Reaction Status Date / Time furosemide [FUROSEMIDE] Allergy Mild RASH Verified 11/30/17 15:40 sertraline [SERTRALINE] Allergy Mild FEELS Verified 11/30/17 15:40 DRUGGED lisinopril AdvReac Mild Cough Verified 11/30/17 15:40 Review of Systems <RADHA Matson - Last Filed: 12/03/17 22:15> Constitutional Denies chills, Denies fatigue, Denies fever(s), Denies lethargy and Denies weakness Eyes Denies change in vision, Denies eye discharge, Denies irritation and Denies loss of vision ENT Ears, Nose, Mouth, and Throat: Denies change in voice, Denies neck pain and Denies sore throat Cardiovascular Reports syncope, Denies dyspnea and Denies dyspnea on exertion Respiratory Denies cough, Denies dyspnea, Denies dyspnea on exertion and Denies wheezing Gastrointestinal Gastrointestinal: Denies abdominal pain, Denies change in bowel habits, Denies diarrhea, Denies nausea and Denies vomiting Musculoskeletal Denies neck pain Integumentary/Breasts Denies pruritus, Denies erythema, Denies rash and Denies wounds Neurologic Denies confusion, Reports syncope, Denies loss of vision and Denies weakness Psychiatric Denies anxiety, Denies confusion, Denies depression, Denies homicidal ideation and Denies suicidal ideation Endocrine Denies fatigue and Denies flushing Hematologic/Lymphatic Denies easy bruising Allergic/Immunologic Denies wheezing Exam <RADHA Matson - Last Filed: 12/03/17 22:15> Initial Vital Signs Initial Vital Signs: Vital Signs Temperature 98.7 F 12/03/17 16:03 Pulse Rate 74 12/03/17 16:03 Respiratory Rate 19 12/03/17 16:03 Blood Pressure 153/114 H 12/03/17 16:03 Pulse Oximetry 96 12/03/17 16:03 Const General: cooperative and well developed Nutritional Appearance: well nourished Orientation: alert, awake, oriented x3 and not confused [facility] Mouth: oral mucosae normal and moist mucous membranes Eyes Conjunctivae: conjunctivae normal Sclera: sclerae normal Pupils: PERRL EOM: EOM intact bilaterally Resp Effort & Inspection: normal respiratory effort, able to speak in complete sentences, no respiratory distress and no use of accessory muscles Auscultation: clear to auscultation bilaterally, no rales, no rhonchi and no wheezes Cardio Rate: regular rate Rhythm: regular rhythm Heart Sounds: no click, no gallops, no murmurs and no rubs Pulses: normal peripheral pulses GI Inspection: non-distended Palpation: soft, no hepatosplenomegaly, No guarding, No pulsatile mass and No tender Auscultation: normal bowel sounds Skin General: no rashes or lesions noted, No jaundice and No petechiae Neuro General: alert, oriented x3, gait normal and no focal motor deficits Speech: speech normal Extrem General: full ROM, no clubbing, cyanosis or edema, no pedal edema and no calf tenderness <Janak Rincon DO - Last Filed: 12/04/17 07:12> Initial Vital Signs Initial Vital Signs: Vital Signs Temperature 98.7 F 12/03/17 16:03 Pulse Rate 74 12/03/17 16:03 Respiratory Rate 19 12/03/17 16:03 Blood Pressure 153/114 H 12/03/17 16:03 Pulse Oximetry 96 12/03/17 16:03 Course <RADHA Matson - Last Filed: 12/03/17 22:15> Orders Ordered: Discontinued Medications Sodium Chloride (Normal Saline 0.9%) 500 mls @ 1,000 mls/hr IV BOLUS ONE Stop: 12/03/17 19:52 Last Admin: 12/03/17 19:24 Dose: 1,000 mls/hr Vital Signs - 8 hr 12/03/17 16:03 12/03/17 18:35 12/03/17 20:34 Temperature 98.7 F 98.6 F Pulse Rate 74 82 82 Respiratory Rate 19 18 20 Blood Pressure 153/114 H 155/67 H Blood Pressure [Left Arm] 166/93 H Pulse Oximetry 96 97 97 <Janak Rincon DO - Last Filed: 12/04/17 07:12> Orders Ordered: Discontinued Medications Sodium Chloride (Normal Saline 0.9%) 500 mls @ 1,000 mls/hr IV BOLUS ONE Stop: 12/03/17 19:52 Last Admin: 12/03/17 19:24 Dose: 1,000 mls/hr Vital Signs - 8 hr 12/03/17 16:03 12/03/17 18:35 12/03/17 20:34 Temperature 98.7 F 98.6 F Pulse Rate 74 82 82 Respiratory Rate 19 18 20 Blood Pressure 153/114 H 155/67 H Blood Pressure [Left Arm] 166/93 H Pulse Oximetry 96 97 97 MDM - Syncope <Taqueria RADHA Ram - Last Filed: 12/03/17 22:15> Lab Data Result diagrams: 12/03/17 16:50 12/03/17 16:50 Lab Results 12/03/17 12/03/17 12/03/17 Range/Units 16:50 16:50 19:08 WBC 8.7 (4.5-11.0) X10^3/uL RBC 3.82 L (4.0-5.2) X10^6/uL Hgb 12.0 (12.0-16.0) g/dL Hct 37.2 (36-46) % MCV 97.4 (80-100) fL MCH 31.3 (26-34) PG MCHC 32.1 (30-36) % RDW 16.5 H (11.6-14.8) % Plt Count 216 (150-400) X10^3/uL Neut % (Auto) 72.1 (50-75) % Lymph % (Auto) 20.1 L (25-40) % [place] % (Auto) 6.5 (3-14) % Eos % (Auto) 0.7 L (2-4) % Baso % (Auto) 0.6 (0-2) % Neut # (Auto) 6300 H (7312-0881) /uL PT 21.4 H (10.1-12.7) SECONDS INR 2.0 H (0.9-1.3) Sodium 141 (137-145) mmol/L Potassium 3.9 (3.4-5.1) mmol/L Chloride 105 (98-107) mmol/L Carbon Dioxide 28 (22-32) mmol/L BUN 6 L (7-17) mg/dL Creatinine 0.50 L (0.52-1.04) mg/dL Estimated GFR > 60.0 (>60) mL/min BUN/Creatinine Ratio 12.0 (6-22) Glucose 94 (80-110) mg/dL Calcium 8.6 (8.4-10.2) mg/dL Total Bilirubin 0.9 (0.2-1.3) mg/dL AST 18 (14-36) IU/L ALT 20 (9-52) IU/L Alkaline Phosphatase 95 (38-126) U/L Total Creatine Kinase 29 L (30-135) U/L CK-MB (CK-2) TNP CK-MB (CK-2) Rel Index TNP Troponin I < 0.012 (0.01-0.034) ng/mL Total Protein 6.5 (6.3-8.2) g/dL Albumin 3.4 L (3.5-5.0) g/dL Globulin 3.1 (1.7-4.1) g/dL Albumin/Globulin Ratio 1.1 (1.0-2.8) 12/03/17 Range/Units 19:08 WBC (4.5-11.0) X10^3/uL RBC (4.0-5.2) X10^6/uL Hgb (12.0-16.0) g/dL Hct (36-46) % MCV (80-100) fL MCH (26-34) PG MCHC (30-36) % RDW (11.6-14.8) % Plt Count (150-400) X10^3/uL Neut % (Auto) (50-75) % Lymph % (Auto) (25-40) % [place] % (Auto) (3-14) % Eos % (Auto) (2-4) % Baso % (Auto) (0-2) % Neut # (Auto) (9783-0510) /uL PT (10.1-12.7) SECONDS INR (0.9-1.3) Sodium (137-145) mmol/L Potassium (3.4-5.1) mmol/L Chloride (98-107) mmol/L Carbon Dioxide (22-32) mmol/L BUN (7-17) mg/dL Creatinine (0.52-1.04) mg/dL Estimated GFR (>60) mL/min BUN/Creatinine Ratio (6-22) Glucose (80-110) mg/dL Calcium (8.4-10.2) mg/dL Total Bilirubin (0.2-1.3) mg/dL AST (14-36) IU/L ALT (9-52) IU/L Alkaline Phosphatase (38-126) U/L Total Creatine Kinase (30-135) U/L CK-MB (CK-2) CK-MB (CK-2) Rel Index Troponin I < 0.012 (0.01-0.034) ng/mL Total Protein (6.3-8.2) g/dL Albumin (3.5-5.0) g/dL Globulin (1.7-4.1) g/dL Albumin/Globulin Ratio (1.0-2.8) Imaging Data Chest x-ray: Radiologist's impression: [address] [address] XRay Report Signed Patient: Chana Garrido [facility]#: [id number] : 8Acct:[id number] Age/Sex: 82 / FDate of Service: 12/03/17 Loc: ED Accession Number: [id number] Procedure: XR chest 1V Ordering Provider: Taqueria Ram PROCEDURE: XR CHEST 1V INDICATIONS: Syncopal episode TECHNIQUE: One view of the chest was acquired. COMPARISON: [facility], , CHEST 1 VIEW, 05/13/2017, 20:24. FINDINGS: Surgical changes and devices: Postoperative changes of the chest are again evident. Lungs and pleura: No pleural effusions or pneumothorax. Lungs are clear. Mediastinum: Mediastinal contours appear normal. Heart size is normal. There is aortic atherosclerosis. Bones and chest wall: No suspicious bony lesions. Overlying soft tissues appear unremarkable. IMPRESSION: Stable chest. No acute cardiopulmonary process is evident. Dictated by: Chris Aparicio M.D. on 12/03/2017 at 15:32 Approved by: Chirs Aparicio M.D. on 12/03/2017 at 15:38 CT scan - head: Radiologist's impression: [address] [address] [address] Scan Report Signed Patient: Chana Garrido [facility]#: [id number] : 8Acct:[id number] Age/Sex: 82 / FDate of Service: 12/03/17 Loc: ED Accession Number: [id number] Procedure: CT head/brain wo con Ordering Provider: Taqueria Ram PROCEDURE: CT HEAD/BRAIN WO CON INDICATIONS: Syncopal episode TECHNIQUE: Noncontrast 4.5 mm thick angled axial sections acquired from the foramen magnum to the vertex, with coronal and sagittal reformats. For radiation dose reduction, the following was used: automated exposure control, adjustment of mA and/or kV according to patient size. COMPARISON: [facility], CT, CT HEAD WITHOUT CONTRAST, 10/29/2017, 19 :14. [facility], CT, HEAD WITHOUT CONTRAST, 04/20/2017, 13:22. FINDINGS: Image quality: Excellent. CSF spaces: Basal cisterns are patent. No extra-axial fluid collections. The ventricles are symmetric in size and shape. Brain: No intracranial bleeds or masses. There is cerebral volume loss for age , with resultant ventricular and sulcal prominence. There are periventricular and deep white matter chronic small vessel ischemic changes. There is intracranial internal carotid artery atherosclerosis. Skull and face: Calvarium and visualized facial bones appear intact, without suspicious lesions. Chronic right frontal calcified scalp nodule, unchanged. Sinuses: Visualized sinuses and mastoids are clear. IMPRESSION: No acute intracranial process. 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 Dictated by: Eh Martinez M.D. on 12/03/2017 at 16:23 Approved by: Eh Martinez M.D. on 12/03/2017 at 16:27 ECG Data Interpretation: EKG shows normal sinus rhythm with no ST elevation or depression. No ectopy. Ventricular rate of 69. Pr interval 138. QRS duration of 85. QT of 428. MDM Narrative Medical decision making narrative: CBC and Chem panel were obtained were unremarkable. Two sets of cardiac enzymes were obtained were negative. INR was at 2.0. CT of the head was obtained was negative for any acute findings. Chest x-ray was obtained was negative for any acute findings. Signs and symptoms presents as syncopal episode secondary to a vasovagal event. [facility] and awake with no complications. Patient states she was not able to provide a urine sample today she request request to go home at this point so is unable to rule out urinary tract infection. She is released home follow up with primary care provider in the next few days for re-evaluation. For any worsening symptoms return to the emergency room. <Janak Rincon, - Last Filed: 12/04/17 07:12> Lab Data Lab Results 12/03/17 12/03/17 12/03/17 Range/Units 16:50 16:50 19:08 WBC 8.7 (4.5-11.0) X10^3/uL RBC 3.82 L (4.0-5.2) X10^6/uL Hgb 12.0 (12.0-16.0) g/dL Hct 37.2 (36-46) % MCV 97.4 (80-100) fL MCH 31.3 (26-34) PG MCHC 32.1 (30-36) % RDW 16.5 H (11.6-14.8) % Plt Count 216 (150-400) X10^3/uL Neut % (Auto) 72.1 (50-75) % Lymph % (Auto) 20.1 L (25-40) % [place] % (Auto) 6.5 (3-14) % Eos % (Auto) 0.7 L (2-4) % Baso % (Auto) 0.6 (0-2) % Neut # (Auto) 6300 H (4408-2584) /uL PT 21.4 H (10.1-12.7) SECONDS INR 2.0 H (0.9-1.3) Sodium 141 (137-145) mmol/L Potassium 3.9 (3.4-5.1) mmol/L Chloride 105 (98-107) mmol/L Carbon Dioxide 28 (22-32) mmol/L BUN 6 L (7-17) mg/dL Creatinine 0.50 L (0.52-1.04) mg/dL Estimated GFR > 60.0 (>60) mL/min BUN/Creatinine Ratio 12.0 (6-22) Glucose 94 (80-110) mg/dL Calcium 8.6 (8.4-10.2) mg/dL Total Bilirubin 0.9 (0.2-1.3) mg/dL AST 18 (14-36) IU/L ALT 20 (9-52) IU/L Alkaline Phosphatase 95 (38-126) U/L Total Creatine Kinase 29 L (30-135) U/L CK-MB (CK-2) TNP CK-MB (CK-2) Rel Index TNP Troponin I < 0.012 (0.01-0.034) ng/mL Total Protein 6.5 (6.3-8.2) g/dL Albumin 3.4 L (3.5-5.0) g/dL Globulin 3.1 (1.7-4.1) g/dL Albumin/Globulin Ratio 1.1 (1.0-2.8) 12/03/17 Range/Units 19:08 WBC (4.5-11.0) X10^3/uL RBC (4.0-5.2) X10^6/uL Hgb (12.0-16.0) g/dL Hct (36-46) % MCV (80-100) fL MCH (26-34) PG MCHC (30-36) % RDW (11.6-14.8) % Plt Count (150-400) X10^3/uL Neut % (Auto) (50-75) % Lymph % (Auto) (25-40) % [place] % (Auto) (3-14) % Eos % (Auto) (2-4) % Baso % (Auto) (0-2) % Neut # (Auto) (4034-3718) /uL PT (10.1-12.7) SECONDS INR (0.9-1.3) Sodium (137-145) mmol/L Potassium (3.4-5.1) mmol/L Chloride (98-107) mmol/L Carbon Dioxide (22-32) mmol/L BUN (7-17) mg/dL Creatinine (0.52-1.04) mg/dL Estimated GFR (>60) mL/min BUN/Creatinine Ratio (6-22) Glucose (80-110) mg/dL Calcium (8.4-10.2) mg/dL Total Bilirubin (0.2-1.3) mg/dL AST (14-36) IU/L ALT (9-52) IU/L Alkaline Phosphatase (38-126) U/L Total Creatine Kinase (30-135) U/L CK-MB (CK-2) CK-MB (CK-2) Rel Index Troponin I < 0.012 (0.01-0.034) ng/mL Total Protein (6.3-8.2) g/dL Albumin (3.5-5.0) g/dL Globulin (1.7-4.1) g/dL Albumin/Globulin Ratio (1.0-2.8) Discharge Plan Departure Patient Disposition: Home Clinical Impression: Episode of syncope Discharge Date/Time: 12/03/17 20:35 Interventions: ED Discharge Assessment Last Done: 12/03/17 20:34 Instructions: DI for Syncope in Adults (Fainting) Activity Restrictions/Additional Instructions: Laboratory results today were unremarkable. CT of the head and chest x-ray were negative for any acute findings. Signs and symptoms presents as vasovagal response causing the fainting. Ensure you are drinking adequate fluid and adequate diet. Follow up with primary care provider in the next few days for re -evaluation. For any worsening symptoms return to the emergency room. Prescriptions: No Action hydrocodone-acetaminophen 5-325 mg tablet 1 tab PO Q6H PRN (Reason: pain) Qty: 120 RF: 0 gabapentin 100 mg capsule 100 mg PO Q8H Qty: 90 RF: 1 mupirocin 2 % ointment 1 applic Topical DIRECTED RF: 0 nitroglycerin [Nitrostat] 0.4 MG tablet, sublingual 0.4 mg Sublingual PRN PRN (Reason: Chest Pain) RF: 0 warfarin 3 mg tablet 1.5 mg PO QPM RF: 0 atorvastatin 80 mg tablet 80 mg PO QPM RF: 0 pantoprazole 40 mg tablet,delayed release (DR/EC) 40 mg PO BID RF: 0 metoprolol tartrate 50 mg tablet 50 mg PO BID RF: 0 albuterol sulfate [Proventil HFA] 90 mcg/actuation HFA aerosol inhaler 2 puff INHALATION Q6H PRN (Reason: shortness of breath or wheezing) RF: 0 Spacer: Inhaler Spacer Device 1 ea miscellaneous DIRECTED RF: 0 Referrals: Heather Tapia DO [Primary Care Provider] - <Janak Rincon DO - Last Filed: 12/04/17 07:12> Cosign ED Attending Arturoature Attestation: I was available for consultation during this patient's emergency department encounter
[2017-12-03 20:34] VITALS: BP 155/67; PULSE 82; RESP 20; TEMP 37; O2SAT 97
== END 2017-12-03 20:35 | disposition home or self-care (01) ==
PROVIDERS: Emergency Provider Nurse Practitioner Family; PCP Family Medicine
DX: R55 Syncope and collapse (principal)
CPT/HCPCS: 36415; 70450; 71045; 80053; 82550; 84484; 85025; 85610; 93005; 93010; 99283; 99285

== ENCOUNTER → 2018-06-04 11:02 | Outpatient (CLI) | payer MEDICARE, OTHER, SELFPAY ==
[2018-06-04 12:26] LABS: Add Manual Diff / Slide Review NO; Basophils Absolute Auto 0 /uL (0-100); Basophils Percent Auto 0.6 % (0-2); Eosinophils Absolute Auto 100 /uL (0-450); Hematocrit 36.5 % (36-46); Hemoglobin 11.7 g/dL (12.0-16.0); Lymphocytes Absolute Auto 2000 /uL (1100-4500); Lymphocytes Percent Auto 30.8 % (25-40); Mean Corpuscular Volume 93.6 fL (80-100); Monocytes Absolute Auto 500 /uL (0-900); Monocytes Percent Auto 6.9 % (3-14); Neutrophils Absolute Auto 4000 /uL (1500-7000); Neutrophils Percent Auto 60.7 % (50-75); Platelet Count 197 X10^3/uL (150-400); Red Cell Distribution Width 15.4 % (11.6-14.8); White Blood Cell Count 6.6 X10^3/uL (4.5-11.0)
[2018-06-04 12:32] LABS: INR 1.1 (0.9-1.3); Prothrombin Time 12.5 SECONDS (10.1-12.7)
[2018-06-04 13:10] LABS: Alanine Aminotransferase 18 IU/L (9-52); Albumin Globulin Ratio 1.4 (1.0-2.8); Alkaline Phosphatase 99 U/L (38-126); Aspartate Aminotransferase 15 IU/L (14-36); BUN Creatinine Ratio 12.9 (6-22); Blood Urea Nitrogen 9 mg/dL (7-17); Calcium 9.7 mg/dL (8.4-10.2); Carbon Dioxide 28 mmol/L (22-32); Chloride 104 mmol/L (98-107); Cholesterol 202 mg/dL (140-199); Estimated Glomerular Filt Rate > 60.0 mL/min (>60); Globulin 2.8 g/dL (1.7-4.1); Glucose 92 mg/dL (80-110); HDL Cholesterol 65 mg/dL (40-60); HEMOLYSIS < 15 (0-50); LDL Cholesterol Calculated 112 mg/dL (<100); Potassium 4.7 mmol/L (3.4-5.1); Sodium 141 mmol/L (137-145); Total Protein 6.8 g/dL (6.3-8.2); Triglycerides 124 mg/dL (35-150)
== END ==
PROVIDERS: PCP Family Medicine; Visit Provider Family Medicine
DX: I25.10 Atherosclerotic heart disease of native coronary artery without angina pectoris (principal)
CPT/HCPCS: 36415; 80053; 80061; 85025; 85610

== ENCOUNTER 2019-01-01 13:07 | Emergency (ER) | payer MEDICARE, OTHER, SELFPAY ==
[2019-01-01 13:10] VITALS: BP 170/94; PULSE 76; RESP 16; TEMP 36.9; O2SAT 95
--- NOTE | 2019-01-01 13:17 | DI.RAD.S_ITS ---
PROCEDURE: XR CHEST 1V INDICATIONS: chest pain, cough TECHNIQUE: One view of the chest was acquired. COMPARISON: [facility], CR, XR CHEST 1V, 12/03/2017, 15:40. FINDINGS: Surgical changes and devices: Median sternotomy changes are present. Lungs and pleura: There is an opacity identified at the left lung base that blunts the left costophrenic angle. This is new since the prior study. No pneumothorax is evident. Patchy areas of increased density are identified throughout the lungs. No lobar consolidation is identified. Mediastinum: Mediastinal contours appear normal. Heart size is may be enlarged. Bones and chest wall: No suspicious bony lesions. Overlying soft tissues appear unremarkable. IMPRESSION: 1. Borderline cardiomegaly with possible vascular congestion. 2. Patchy areas of increased density within the lungs may represent multifocal pneumonia. 3. Small moderate-sized left-sided pleural effusion is new. Dictated by: Chris Aparicio M.D. on 01/01/2019 at 13:50 Approved by: Chris Aparicio M.D. on 01/01/2019 at 13:51
--- NOTE | 2019-01-01 13:30 | DI.RAD.S_ITS ---
PROCEDURE: XR ELBOW LT 2V INDICATIONS: pain in shoulder / elbow w/o known trauma. TECHNIQUE: 2 views of the elbow were acquired. COMPARISON: None. FINDINGS: Nonstandard positioning of the elbow on the lateral view results in difficulty evaluating for subtle bony or soft tissue abnormalities. No displaced fractures or dislocations are evident. There may be mild degenerative changes of the elbow. No obvious massive effusion is appreciated. However, evaluation for small joint effusions is not adequate given suboptimal positioning and technique. Otherwise, the overlying soft tissues are unremarkable. IMPRESSION: No displaced elbow fractures with limitations as above. Dictated by: Chris Aparicio M.D. on 01/01/2019 at 14:12 Approved by: Chris Aparicio M.D. on 01/01/2019 at 14:14
--- NOTE | 2019-01-01 13:30 | DI.RAD.S_ITS ---
PROCEDURE: XR SHOULDER LT MIN 2V INDICATIONS: pain in shoulder / elbow w/o known trauma. TECHNIQUE: 2 views of the shoulder were acquired. COMPARISON: None. FINDINGS: Bones: No definite acute fractures are evident involving the left shoulder. Moderate to severe degenerative changes of the glenohumeral and acromioclavicular joints are present. An ossific/calcific density overlying the sacral lateral margin of the glenoid appears to be present, but is not well characterized on this exam. Soft tissues: No suspicious soft tissue calcifications. Median sternotomy changes are present. There is a left-sided pleural effusion. IMPRESSION: 1. No definite acute fractures. There may be an old injury involving the superior glenoid. 2. 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 Dictated by: Chris Aparicio M.D. on 01/01/2019 at 14:10 Approved by: Chris Aparicio M.D. on 01/01/2019 at 14:12
--- NOTE | 2019-01-01 13:41 | PC.NURSE ---
Son and pt state no fall recently. Left shoulder and elbow painful to move and rotate. + pulse distally. + strong hand grasp.
--- NOTE | 2019-01-01 13:57 | PC.NURSE ---
Pt has difficult iv access. attempt x 2, son very insistant on picc line/ and objecting to iv, will have labs drawn for now, nutter up aware
--- NOTE | 2019-01-01 14:03 | PC.NURSE ---
2 RNs attempted IVs (1 each try). Unsuccessful. Son is very upset that she is being stuck for blood and is requesting a PICC line. Discussed how at this time a PICC would not be advised as it is invasive and has risks. Discussed w/ provider who agreed to lab draw only at this time. Will evaluate labs and decide if IV is needed and move on from there.
[2019-01-01] MEDS: ACETAMINOPHEN 325 MG TABLET 650 MG PO (14:23)
[2019-01-01 14:45] LABS: Add Manual Diff / Slide Review NO; Basophils Absolute Auto 100 /uL (0-100); Basophils Percent Auto 0.7 % (0-2); Eosinophils Absolute Auto 100 /uL (0-450); Eosinophils Percent Auto 0.5 % (2-4); Hematocrit 35.5 % (36-46); Hemoglobin 11.7 g/dL (12.0-16.0); Lymphocytes Absolute Auto 1100 /uL (1100-4500); Lymphocytes Percent Auto 10.5 % (25-40); Mean Corpuscular HGB Conc 33.1 % (30-36); Mean Corpuscular Hemoglobin 31.7 PG (26-34); Mean Corpuscular Volume 95.8 fL (80-100); Monocytes Absolute Auto 700 /uL (0-900); Neutrophils Absolute Auto 8200 /uL (1500-7000); Neutrophils Percent Auto 81.3 % (50-75); Platelet Count 284 X10^3/uL (150-400); Red Blood Cell Count 3.71 X10^6/uL (4.0-5.2); Red Cell Distribution Width 17.3 % (11.6-14.8); White Blood Cell Count 10.1 X10^3/uL (4.5-11.0)
--- NOTE | 2019-01-01 14:50 | PC.NURSE ---
Plebotomy attempted labs but unable to get, IV able to be placed L ac.
[2019-01-01 14:51] VITALS: BP 167/79; PULSE 80; RESP 18; O2SAT 96
[2019-01-01 14:54] LABS: INR 1.2 (0.9-1.3); Prothrombin Time 14.3 SECONDS (10.1-12.7)
[2019-01-01 14:57] LABS: PTT Partial Thromboplastin Tim 34 SECONDS (26.4-36.2)
[2019-01-01 15:01] LABS: Influenza A and B by PCR Rapid Negative (Negative); Strep Grp A by PCR Rapid Negative
[2019-01-01 15:01] LABS: Alanine Aminotransferase 6 IU/L (<35); Albumin 4.1 g/dL (3.5-5.0); Albumin Globulin Ratio 1.2 (1.0-2.8); Alkaline Phosphatase 117 U/L (38-126); Aspartate Aminotransferase 15 IU/L (14-36); BUN Creatinine Ratio 12.9 (6-22); Bilirubin Total 0.7 mg/dL (0.2-1.3); Blood Urea Nitrogen 9 mg/dL (7-17); Calcium 9.4 mg/dL (8.4-10.2); Carbon Dioxide 29 mmol/L (22-32); Chloride 102 mmol/L (98-107); Creatine Kinase < 20 U/L (30-135); Estimated Glomerular Filt Rate > 60.0 mL/min (>60); Globulin 3.4 g/dL (1.7-4.1); Glucose 117 mg/dL (80-110); HEMOLYSIS 20 (0-50); Lipase 34 U/L (23-300); Magnesium 1.7 mg/dL (1.6-2.3); Potassium 3.6 mmol/L (3.4-5.1); Sodium 139 mmol/L (137-145); Total Protein 7.5 g/dL (6.3-8.2)
[2019-01-01 15:06] LABS: B Type Natriuretic Peptide 426 (<100)
[2019-01-01 15:13] LABS: Troponin I < 0.012 ng/mL (0.01-0.034)
--- NOTE | 2019-01-01 15:20 | ED.CHESTPAIN ---
HPI - Chest Pain <Brittnee ShaikhMELYP-BC - Last Filed: 01/01/19 19:10> General Chief Complaint: Chest Pain Stated Complaint: pneumonia like symptoms Time Seen by Provider: 01/01/19 13:12 Source: patient and family Mode of arrival: Wheelchair Limitations: no limitations History of Present Illness HPI narrative: The patient is an 83-year-old female nonsmoker with history of atrial fibrillation who presents with a chief complaint of left-sided rib pain, cough and sore throat. She states has been going on for few days. She denies any shortness of breath or wheezing. She states that her cough is nonproductive. She also presents with a chief complaint of left-sided shoulder pain as well as left arm pain. She states that this was new, her son accompanies her states that is chronic and gotten worse recently. She has not taken anything for the pain. She has not taken anything to feel better overall. She denies any lightheadedness, dizziness, substernal chest pain or weakness. She is accompanied by her son. Of note the patient states that she has been on Coumadin for her AFib, has not had her INR checked in about a year. Her son states that they just do not bother.She denies any nausea vomiting or diarrhea. Related Data Home Medications Medication Instructions Recorded Confirmed Spacer: Inhaler Spacer Device 1 ea MISCELLANEOUS DIRECTED 10/27/17 10/25/18 atorvastatin 80 mg PO QPM 10/27/17 10/25/18 mupirocin 1 applic TOPICAL DIRECTED 12/03/17 10/25/18 nitroglycerin [Nitrostat] 0.4 mg SUBLINGUAL PRN PRN 12/03/17 10/25/18 Previous Rx's Medication Instructions Recorded warfarin 3 mg tablet 1.5 mg PO QPM #60 tab 02/11/18 Handicap Parking #1 ea 06/04/18 albuterol sulfate 90 mcg/actuation 2 puff INHALATION Q6H PRN #8 gram 09/22/18 aerosol inhaler metoprolol tartrate 50 mg tablet 25 mg PO BID #90 tab 10/13/18 losartan 50 mg tablet 50 mg PO BID #180 tab 10/25/18 pantoprazole 40 mg tablet,delayed 40 mg PO BID #60 tab 11/01/18 release hydrocodone 5 mg-acetaminophen 325 1 tab PO Q6H PRN #112 tab 12/16/18 mg tablet gabapentin 100 mg capsule 100 mg PO Q8H #90 cap 12/31/18 doxycycline hyclate 100 mg PO BID #20 cap 01/01/19 Allergies Allergy/AdvReac Type Severity Reaction Status Date / Time furosemide [FUROSEMIDE] Allergy Mild RASH Verified 01/01/19 13:20 sertraline [SERTRALINE] Allergy Mild FEELS Verified 01/01/19 13:20 DRUGGED lisinopril AdvReac Mild Cough Verified 01/01/19 13:20 Review of Systems <SIMON Butt - Last Filed: 01/01/19 19:10> Review of Systems Narrative: GENERAL: Denies chills, fatigue, malaise, fever, sweats. HEENT: Denies sinus pain, ear pain, sore throat, difficulty swallowing, dizziness. RESPIRATORY: See HPI CARDIOVASCULAR: See HPI GASTROINTESTINAL: Denies nausea, vomiting, abdominal pain, diarrhea, constipation, melena. : Denies dysuria, frequency, incontinence, hematuria, urinary retention. MUSCULOSKELETAL: denies weakness, joint pain, or bony pain SKIN: Denies rash, skin lesions, or other NEUROLOGIC: Denies weakness, headache, numbness, change in speech, confusion, seizures, incoordination. PSYCHIATRIC: No concerning psychosocial issues. 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) Asthma (Chronic) Breast cancer (Resolved ~2001) CAD (coronary artery disease) (Chronic) Cerebrovascular accident (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 right middle cerebral artery (Inactive 04/27/17) Cervical cancer, FIGO stage I (Chronic) Cholelithiasis (Chronic) Chronic back pain (Chronic) Developmental disorder (Chronic) Essential hypertension (Chronic 02/19/12) Fibrocystic breast disease (Chronic) GERD (gastroesophageal reflux disease) (Chronic) History of colon polyps (Resolved 02/19/12) History of left breast cancer (Acute ~2008) Hyperlipidemia (Chronic) IBS (irritable bowel syndrome) (Chronic) Measles (Resolved) Middle cerebral artery stenosis (Chronic ~10/2017) Obesity with body mass index (BMI) of 30.0 to 39.9 (Chronic 02/19/12) Personal history of other malignant neoplasm of skin (Resolved 02/19/12) 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) Systolic congestive heart failure with reduced left ventricular function, NYHA class 2 (Chronic 10/26/10) Surgical History Anesthesia (Inactive) Status post arthroscopy Status post biopsy (~2014) Status post breast lumpectomy (~2008) Status post cholecystectomy Status post coronary artery bypass graft Status post hysterectomy (~2009) Social History Smoking Status: Never smoker alcohol intake frequency: holidays/special occasions only Substance Use Type: does not use Exam <SIMON Butt - Last Filed: 01/01/19 19:10> Narrative Exam Narrative: GENERAL: Chronically ill-appearing elderly female in no acute distress HEAD: Atraumatic. Normocephalic. No temporal or scalp tenderness. EYES: Pupils equal round and reactive. Extraocular motions intact. No scleral icterus. No injection or drainage. ENT: Nose without bleeding, purulent drainage or septal hematoma. Throat without erythema, tonsillar hypertrophy or exudate. Uvula midline. Airway patent. NECK: Trachea midline. No JVD or lymphadenopathy. Supple, nontender, no meningeal signs. CARDIOVASCULAR: Regular rate and irregular rhythm RESPIRATORY: Coarse bilaterally to auscultation. Breath sounds equal bilaterally. No wheezes, rales, or rhonchi. Occasional dry cough noted. GASTROINTESTINAL: Abdomen soft, non-tender, nondistended. No hepato-splenomegaly, or palpable masses. No guarding. Active bowel sounds all 4 quadrants. EXTREMITIES: Diffuse pain to palpation left shoulder and arm. Decreased range of motion all chen left shoulder. Positive radial pulse left hand. BACK: Nontender without deformity or crepitance. No flank tenderness. NEURO: AOx3. Interactive. SKIN: No rash or erythema on visible skin Initial Vital Signs Initial Vital Signs: Vital Signs Temperature 98.4 F 01/01/19 13:10 Pulse Rate 76 01/01/19 13:10 Respiratory Rate 16 01/01/19 13:10 Blood Pressure 170/94 H 01/01/19 13:10 Pulse Oximetry 95 01/01/19 13:10 <Joni Pacheco DO - Last Filed: 01/02/19 07:40> Initial Vital Signs Initial Vital Signs: Vital Signs Temperature 98.4 F 01/01/19 13:10 Pulse Rate 76 01/01/19 13:10 Respiratory Rate 16 01/01/19 13:10 Blood Pressure 170/94 H 01/01/19 13:10 Pulse Oximetry 95 01/01/19 13:10 Scores <SIMON Butt - Last Filed: 01/01/19 19:10> CURB-65 Confusion: No BUN >19mg/dL (>7mmol/L): No Respiratory rate greater or equal to 30: No SBP <90mmHg or DBP less or equal to 60mmHg: No Age 65 or Older: Yes CURB-65 Total: 1 Score 0-1 Outpatient care, Score 2 Inpt vs. Obs, Score 3 or over Inpt admit with ICU for score of 4-5 Course <SIMON Butt - Last Filed: 01/01/19 19:10> Orders Ordered: Discontinued Medications Acetaminophen (Tylenol) 650 mg PO NOW ONE Stop: 01/01/19 14:19 Last Admin: 01/01/19 14:23 Dose: 650 mg Documented by: BARBARA Doxycycline Hyclate (Vibramycin) 100 mg PO NOW ONE Stop: 01/01/19 16:25 Last Admin: 01/01/19 16:27 Dose: 100 mg Documented by: BARBARA Vital Signs Vital signs: Vital Signs - 8 hr 01/01/19 13:10 01/01/19 14:51 01/01/19 15:46 Temperature 98.4 F Pulse Rate 76 80 78 Respiratory Rate 16 18 Blood Pressure 170/94 H Blood Pressure [Right Arm] 167/79 H 161/76 H Pulse Oximetry 95 96 96 01/01/19 16:32 01/01/19 16:56 Temperature 98.4 F Pulse Rate 78 Respiratory Rate 18 Blood Pressure Blood Pressure [Right Arm] 164/97 H Pulse Oximetry 98 <Joni Pacheco DO - Last Filed: 01/02/19 07:40> Orders Ordered: Discontinued Medications Acetaminophen (Tylenol) 650 mg PO NOW ONE Stop: 01/01/19 14:19 Last Admin: 01/01/19 14:23 Dose: 650 mg Documented by: BARBARA Doxycycline Hyclate (Vibramycin) 100 mg PO NOW ONE Stop: 01/01/19 16:25 Last Admin: 01/01/19 16:27 Dose: 100 mg Documented by: BARBARA Vital Signs Vital signs: Vital Signs - 8 hr 01/01/19 13:10 01/01/19 14:51 01/01/19 15:46 Temperature 98.4 F Pulse Rate 76 80 78 Respiratory Rate 16 18 Blood Pressure 170/94 H Blood Pressure [Right Arm] 167/79 H 161/76 H Pulse Oximetry 95 96 96 01/01/19 16:32 01/01/19 16:56 Temperature 98.4 F Pulse Rate 78 Respiratory Rate 18 Blood Pressure Blood Pressure [Right Arm] 164/97 H Pulse Oximetry 98 MDM - Chest Pain <SIMON Butt - Last Filed: 01/01/19 19:10> Lab Data Result diagrams: 01/01/19 14:30 01/01/19 14:30 Labs: Lab Results 01/01/19 01/01/19 01/01/19 Range/Units 14:13 14:30 14:30 WBC 10.1 (4.5-11.0) X10^3/uL RBC 3.71 L (4.0-5.2) X10^6/uL Hgb 11.7 L (12.0-16.0) g/dL Hct 35.5 L (36-46) % MCV 95.8 (80-100) fL MCH 31.7 (26-34) PG MCHC 33.1 (30-36) % RDW 17.3 H (11.6-14.8) % Plt Count 284 (150-400) X10^3/uL Neut % (Auto) 81.3 H (50-75) % Lymph % (Auto) 10.5 L (25-40) % [place] % (Auto) 7.0 (3-14) % Eos % (Auto) 0.5 L (2-4) % Baso % (Auto) 0.7 (0-2) % Neut # (Auto) 8200 H (1831-6168) /uL Lymph # (Auto) 1100 (3972-2466) /uL [place] # (Auto) 700 (0-900) /uL Eos # (Auto) 100 (0-450) /uL Baso # (Auto) 100 (0-100) /uL PT 14.3 H (10.1-12.7) SECONDS INR 1.2 (0.9-1.3) APTT 34 D (26.4-36.2) SECONDS Sodium (137-145) mmol/L Potassium (3.4-5.1) mmol/L Chloride (98-107) mmol/L Carbon Dioxide (22-32) mmol/L BUN (7-17) mg/dL Creatinine (0.52-1.04) mg/dL Estimated GFR (>60) mL/min BUN/Creatinine Ratio (6-22) Glucose (80-110) mg/dL Calcium (8.4-10.2) mg/dL Magnesium (1.6-2.3) mg/dL Total Bilirubin (0.2-1.3) mg/dL AST (14-36) IU/L ALT (<35) IU/L Alkaline Phosphatase (38-126) U/L Total Creatine Kinase (30-135) U/L CK-MB (CK-2) CK-MB (CK-2) Rel Index Troponin I (0.01-0.034) ng/mL B-Natriuretic Peptide 426 H (<100) Total Protein (6.3-8.2) g/dL Albumin (3.5-5.0) g/dL Globulin (1.7-4.1) g/dL Albumin/Globulin Ratio (1.0-2.8) Lipase (23-300) U/L Procalcitonin (<0.5) ng/mL Chlamy pneumoniae PCR Not detected (Not Detect) Adenovirus (PCR) Not detected (Not Detect) B.parapertussis DNA PCR Not detected (Not Detect) Coronavirus OC43 (PCR) Not detected (Not Detect) Coronavirus HKU1 (PCR) Not detected (Not Detect) Coronavirus 229E (PCR) Not detected (Not Detect) Coronavirus NL63 (PCR) Not detected (Not Detect) Human Metapneumovir PCR Not detected (Not Detect) Influenza Type A (PCR) Not detected (Not Detect) Influenza Type B (PCR) Not detected (Not Detect) Influenza A & B (PCR) Negative (Negative) M. pneumoniae (PCR) Not detected (Not Detect) Parainfluenza 1 (PCR) Not detected (Not Detect) Parainfluenza 2 (PCR) Not detected (Not Detect) Parainfluenza 3 (PCR) Not detected (Not Detect) Parainfluenza 4 (PCR) Not detected (Not Detect) RSV (PCR) Not detected (Not Detect) Entero/Rhino (PCR) Not detected (Not Detect) Group A Strep (PCR) Negative 01/01/19 01/01/19 Range/Units 14:30 14:30 WBC (4.5-11.0) X10^3/uL RBC (4.0-5.2) X10^6/uL Hgb (12.0-16.0) g/dL Hct (36-46) % MCV (80-100) fL MCH (26-34) PG MCHC (30-36) % RDW (11.6-14.8) % Plt Count (150-400) X10^3/uL Neut % (Auto) (50-75) % Lymph % (Auto) (25-40) % [place] % (Auto) (3-14) % Eos % (Auto) (2-4) % Baso % (Auto) (0-2) % Neut # (Auto) (3886-0150) /uL Lymph # (Auto) (4329-1700) /uL [place] # (Auto) (0-900) /uL Eos # (Auto) (0-450) /uL Baso # (Auto) (0-100) /uL PT (10.1-12.7) SECONDS INR (0.9-1.3) APTT (26.4-36.2) SECONDS Sodium 139 (137-145) mmol/L Potassium 3.6 (3.4-5.1) mmol/L Chloride 102 (98-107) mmol/L Carbon Dioxide 29 (22-32) mmol/L BUN 9 (7-17) mg/dL Creatinine 0.70 (0.52-1.04) mg/dL Estimated GFR > 60.0 (>60) mL/min BUN/Creatinine Ratio 12.9 (6-22) Glucose 117 H (80-110) mg/dL Calcium 9.4 (8.4-10.2) mg/dL Magnesium 1.7 (1.6-2.3) mg/dL Total Bilirubin 0.7 (0.2-1.3) mg/dL AST 15 (14-36) IU/L ALT 6 (<35) IU/L Alkaline Phosphatase 117 (38-126) U/L Total Creatine Kinase < 20 L (30-135) U/L CK-MB (CK-2) TNP CK-MB (CK-2) Rel Index TNP Troponin I < 0.012 (0.01-0.034) ng/mL B-Natriuretic Peptide (<100) Total Protein 7.5 (6.3-8.2) g/dL Albumin 4.1 (3.5-5.0) g/dL Globulin 3.4 (1.7-4.1) g/dL Albumin/Globulin Ratio 1.2 (1.0-2.8) Lipase 34 (23-300) U/L Procalcitonin 0.36 (<0.5) ng/mL Chlamy pneumoniae PCR (Not Detect) Adenovirus (PCR) (Not Detect) B.parapertussis DNA PCR (Not Detect) Coronavirus OC43 (PCR) (Not Detect) Coronavirus HKU1 (PCR) (Not Detect) Coronavirus 229E (PCR) (Not Detect) Coronavirus NL63 (PCR) (Not Detect) Human Metapneumovir PCR (Not Detect) Influenza Type A (PCR) (Not Detect) Influenza Type B (PCR) (Not Detect) Influenza A & B (PCR) (Negative) M. pneumoniae (PCR) (Not Detect) Parainfluenza 1 (PCR) (Not Detect) Parainfluenza 2 (PCR) (Not Detect) Parainfluenza 3 (PCR) (Not Detect) Parainfluenza 4 (PCR) (Not Detect) RSV (PCR) (Not Detect) Entero/Rhino (PCR) (Not Detect) Group A Strep (PCR) Imaging Data Shoulder x-ray: Radiologist's impression: [address] [address] XRay Report Signed Patient: Chana Garrido [facility]#: [id number] : 8Acct:[id number] Age/Sex: 83 / FDate of Service: 01/01/19 Loc: ED Accession Number: [id number] Procedure: XR shoulder LT min 2V Ordering Provider: Brittnee Shaikh PROCEDURE: XR SHOULDER LT MIN 2V INDICATIONS: pain in shoulder / elbow w/o known trauma. TECHNIQUE: 2 views of the shoulder were acquired. COMPARISON: None. FINDINGS: Bones: No definite acute fractures are evident involving the left shoulder. Moderate to severe degenerative changes of the glenohumeral and acromioclavicular joints are present. An ossific/calcific density overlying the sacral lateral margin of the glenoid appears to be present, but is not well characterized on this exam. Soft tissues: No suspicious soft tissue calcifications. Median sternotomy changes are present. There is a left-sided pleural effusion. IMPRESSION: 1. No definite acute fractures. There may be an old injury involving the superior glenoid. 2. 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 Dictated by: Chris Aparicio M.D. on 01/01/2019 at 14:10 Approved by: Chris Aparicio M.D. on 01/01/2019 at 14:12 Elbow x-ray: Radiologist's impression: [place] [address] XRay Report Signed Patient: Chana Garrido [facility]#: [id number] : 8Acct:[id number] Age/Sex: 83 / FDate of Service: 01/01/19 Loc: ED Accession Number: [id number] Procedure: XR elbow LT 2V Ordering Provider: Brittnee Shaikh PROCEDURE: XR ELBOW LT 2V INDICATIONS: pain in shoulder / elbow w/o known trauma. TECHNIQUE: 2 views of the elbow were acquired. COMPARISON: None. FINDINGS: Nonstandard positioning of the elbow on the lateral view results in difficulty evaluating for subtle bony or soft tissue abnormalities. No displaced fractures or dislocations are evident. There may be mild degenerative changes of the elbow. No obvious massive effusion is appreciated. However, evaluation for small joint effusions is not adequate given suboptimal positioning and technique. Otherwise, the overlying soft tissues are unremarkable. IMPRESSION: No displaced elbow fractures with limitations as above. Dictated by: Chris Aparicio M.D. on 01/01/2019 at 14:12 Approved by: Chris Aparicio M.D. on 01/01/2019 at 14:14 Chest x-ray: Radiologist's impression: [address] [address] XRay Report Signed Patient: Chana Garrido [facility]#: [id number] : 8Acct:[id number] Age/Sex: 83 / FDate of Service: 01/01/19 Loc: ED Accession Number: [id number] Procedure: XR chest 1V Ordering Provider: Brittnee Shaikh PROCEDURE: XR CHEST 1V INDICATIONS: chest pain, cough TECHNIQUE: One view of the chest was acquired. COMPARISON: [facility], , XR CHEST 1V, 12/03/2017, 15:40. FINDINGS: Surgical changes and devices: Median sternotomy changes are present. Lungs and pleura: There is an opacity identified at the left lung base that blunts the left costophrenic angle. This is new since the prior study. No pneumothorax is evident. Patchy areas of increased density are identified throughout the lungs. No lobar consolidation is identified. Mediastinum: Mediastinal contours appear normal. Heart size is may be enlarged. Bones and chest wall: No suspicious bony lesions. Overlying soft tissues appear unremarkable. IMPRESSION: 1. Borderline cardiomegaly with possible vascular congestion. 2. Patchy areas of increased density within the lungs may represent multifocal pneumonia. 3. Small moderate-sized left-sided pleural effusion is new. Dictated by: Chris Aparicio M.D. on 01/01/2019 at 13:50 Approved by: Chris Aparicio M.D. on 01/01/2019 at 13:51 ECG Data Attestation: I personally reviewed and interpreted this ECG as follows: Interpretation: Atrial fibrillation. Ventricular rate 77. QRS duration 97. No ectopy noted. viewed by Dr Pacheco. [facility] Narrative Medical decision making narrative: The patient is an 83-year-old female who presents with a chief complaint of cough, shoulder pain, believing she have pneumonia. Her x-rays indicative of multifocal pneumonia bilaterally, she also has a small pleural effusion. Given her complaints of chest pain and rib pain, troponin was drawn which was negative to rule out any cardiac etiology. The patient does have a slightly elevated BNP, which she has that in the past and she does have a history of heart failure. On the patient's curb 65 score someone. The patient strongly prefers to go out patient to home therapy. She was able to tolerate p.o. doxycycline in the emergency department. Given the patient's comorbidities, noncompliance with Coumadin an INR checking, I spoke with Dr. Olmedo regarding her x-ray, BNP, nontherapeutic INR etc. I discussed at length with the patient the importance of following up with her PCP, Dr. Olmedo will help arrange for outpatient follow-up as well. I discussed at length coming back to the emergency department for any acute concerns such as chest pain, excessive shortness of breath etc. The patient did receive incentive spirometer teaching in the emergency department. She repeatedly requested to go home. The patient has no questions or concerns upon discharge and states understanding of return precautions as well as follow-up care. <Joni Pacheco, - Last Filed: 01/02/19 07:40> Lab Data Labs: Lab Results 01/01/19 01/01/19 01/01/19 Range/Units 14:13 14:30 14:30 WBC 10.1 (4.5-11.0) X10^3/uL RBC 3.71 L (4.0-5.2) X10^6/uL Hgb 11.7 L (12.0-16.0) g/dL Hct 35.5 L (36-46) % MCV 95.8 (80-100) fL MCH 31.7 (26-34) PG MCHC 33.1 (30-36) % RDW 17.3 H (11.6-14.8) % Plt Count 284 (150-400) X10^3/uL Neut % (Auto) 81.3 H (50-75) % Lymph % (Auto) 10.5 L (25-40) % [place] % (Auto) 7.0 (3-14) % Eos % (Auto) 0.5 L (2-4) % Baso % (Auto) 0.7 (0-2) % Neut # (Auto) 8200 H (1864-8596) /uL Lymph # (Auto) 1100 (9559-3872) /uL [place] # (Auto) 700 (0-900) /uL Eos # (Auto) 100 (0-450) /uL Baso # (Auto) 100 (0-100) /uL PT 14.3 H (10.1-12.7) SECONDS INR 1.2 (0.9-1.3) APTT 34 D (26.4-36.2) SECONDS Sodium (137-145) mmol/L Potassium (3.4-5.1) mmol/L Chloride (98-107) mmol/L Carbon Dioxide (22-32) mmol/L BUN (7-17) mg/dL Creatinine (0.52-1.04) mg/dL Estimated GFR (>60) mL/min BUN/Creatinine Ratio (6-22) Glucose (80-110) mg/dL Calcium (8.4-10.2) mg/dL Magnesium (1.6-2.3) mg/dL Total Bilirubin (0.2-1.3) mg/dL AST (14-36) IU/L ALT (<35) IU/L Alkaline Phosphatase (38-126) U/L Total Creatine Kinase (30-135) U/L CK-MB (CK-2) CK-MB (CK-2) Rel Index Troponin I (0.01-0.034) ng/mL B-Natriuretic Peptide 426 H (<100) Total Protein (6.3-8.2) g/dL Albumin (3.5-5.0) g/dL Globulin (1.7-4.1) g/dL Albumin/Globulin Ratio (1.0-2.8) Lipase (23-300) U/L Procalcitonin (<0.5) ng/mL Chlamy pneumoniae PCR Not detected (Not Detect) Adenovirus (PCR) Not detected (Not Detect) B.parapertussis DNA PCR Not detected (Not Detect) Coronavirus OC43 (PCR) Not detected (Not Detect) Coronavirus HKU1 (PCR) Not detected (Not Detect) Coronavirus 229E (PCR) Not detected (Not Detect) Coronavirus NL63 (PCR) Not detected (Not Detect) Human Metapneumovir PCR Not detected (Not Detect) Influenza Type A (PCR) Not detected (Not Detect) Influenza Type B (PCR) Not detected (Not Detect) Influenza A & B (PCR) Negative (Negative) M. pneumoniae (PCR) Not detected (Not Detect) Parainfluenza 1 (PCR) Not detected (Not Detect) Parainfluenza 2 (PCR) Not detected (Not Detect) Parainfluenza 3 (PCR) Not detected (Not Detect) Parainfluenza 4 (PCR) Not detected (Not Detect) RSV (PCR) Not detected (Not Detect) Entero/Rhino (PCR) Not detected (Not Detect) Group A Strep (PCR) Negative 01/01/19 01/01/19 Range/Units 14:30 14:30 WBC (4.5-11.0) X10^3/uL RBC (4.0-5.2) X10^6/uL Hgb (12.0-16.0) g/dL Hct (36-46) % MCV (80-100) fL MCH (26-34) PG MCHC (30-36) % RDW (11.6-14.8) % Plt Count (150-400) X10^3/uL Neut % (Auto) (50-75) % Lymph % (Auto) (25-40) % [place] % (Auto) (3-14) % Eos % (Auto) (2-4) % Baso % (Auto) (0-2) % Neut # (Auto) (0214-2470) /uL Lymph # (Auto) (0147-0527) /uL [place] # (Auto) (0-900) /uL Eos # (Auto) (0-450) /uL Baso # (Auto) (0-100) /uL PT (10.1-12.7) SECONDS INR (0.9-1.3) APTT (26.4-36.2) SECONDS Sodium 139 (137-145) mmol/L Potassium 3.6 (3.4-5.1) mmol/L Chloride 102 (98-107) mmol/L Carbon Dioxide 29 (22-32) mmol/L BUN 9 (7-17) mg/dL Creatinine 0.70 (0.52-1.04) mg/dL Estimated GFR > 60.0 (>60) mL/min BUN/Creatinine Ratio 12.9 (6-22) Glucose 117 H (80-110) mg/dL Calcium 9.4 (8.4-10.2) mg/dL Magnesium 1.7 (1.6-2.3) mg/dL Total Bilirubin 0.7 (0.2-1.3) mg/dL AST 15 (14-36) IU/L ALT 6 (<35) IU/L Alkaline Phosphatase 117 (38-126) U/L Total Creatine Kinase < 20 L (30-135) U/L CK-MB (CK-2) TNP CK-MB (CK-2) Rel Index TNP Troponin I < 0.012 (0.01-0.034) ng/mL B-Natriuretic Peptide (<100) Total Protein 7.5 (6.3-8.2) g/dL Albumin 4.1 (3.5-5.0) g/dL Globulin 3.4 (1.7-4.1) g/dL Albumin/Globulin Ratio 1.2 (1.0-2.8) Lipase 34 (23-300) U/L Procalcitonin 0.36 (<0.5) ng/mL Chlamy pneumoniae PCR (Not Detect) Adenovirus (PCR) (Not Detect) B.parapertussis DNA PCR (Not Detect) Coronavirus OC43 (PCR) (Not Detect) Coronavirus HKU1 (PCR) (Not Detect) Coronavirus 229E (PCR) (Not Detect) Coronavirus NL63 (PCR) (Not Detect) Human Metapneumovir PCR (Not Detect) Influenza Type A (PCR) (Not Detect) Influenza Type B (PCR) (Not Detect) Influenza A & B (PCR) (Negative) M. pneumoniae (PCR) (Not Detect) Parainfluenza 1 (PCR) (Not Detect) Parainfluenza 2 (PCR) (Not Detect) Parainfluenza 3 (PCR) (Not Detect) Parainfluenza 4 (PCR) (Not Detect) RSV (PCR) (Not Detect) Entero/Rhino (PCR) (Not Detect) Group A Strep (PCR) Discharge Plan Departure Patient Disposition: Home Clinical Impression: Elevated brain natriuretic peptide (BNP) level Pneumonia Qualifiers: Pneumonia type: due to unspecified organism Laterality: bilateral Lung location: unspecified part of lung Qualified Code(s): J18.9 - Pneumonia, unspecified organism Chronic shoulder pain Qualifiers: Laterality: left Qualified Code(s): M25.512 - Pain in left shoulder Discharge Date/Time: 01/01/19 16:58 Instructions: How to Use an Incentive Spirometer, DI for Pneumonia -- Adult, DI for Shoulder Pain Activity Restrictions/Additional Instructions: As discussed, you have pneumonia. Your vital signs are stable in her lab work is reassuring. Thus we elected to give you a prescription of antibiotics. As discussed, your x-ray of her shoulder is concerning for arthritis, which you are aware of. You have received your dose today, so please start the prescription tomorrow. Please use the incentive spirometer. I spoke with Dr. Olmedo who will help arrange follow-up early next week for you. Please follow-up with your PCP in the next few days. Please come back to the emergency department for any acute concerns. Prescriptions: New doxycycline hyclate 100 mg capsule 100 mg PO BID Qty: 20 RF: 0 No Action warfarin 3 mg tablet 1.5 mg PO QPM Qty: 60 RF: 3 albuterol sulfate [Proventil HFA] 90 mcg/actuation HFA aerosol inhaler 2 puff INHALATION Q6H PRN (Reason: shortness of breath or wheezing) Qty: 8 RF: 0 metoprolol tartrate 50 mg tablet 25 mg PO BID Qty: 90 RF: 3 pantoprazole 40 mg tablet,delayed release (DR/EC) 40 mg PO BID Qty: 60 RF: 0 hydrocodone-acetaminophen 5-325 mg tablet 1 tab PO Q6H PRN (Reason: pain) Qty: 112 RF: 0 gabapentin 100 mg capsule 100 mg PO Q8H Qty: 90 RF: 1 (DME) Handicap Parking Qty: 1 RF: 0 losartan 50 mg tablet 50 mg PO BID Qty: 180 RF: 3 mupirocin 2 % ointment 1 applic Topical DIRECTED RF: 0 nitroglycerin [Nitrostat] 0.4 MG tablet, sublingual 0.4 mg Sublingual PRN PRN (Reason: Chest Pain) RF: 0 atorvastatin 80 mg tablet 80 mg PO QPM RF: 0 Spacer: Inhaler Spacer Device 1 ea miscellaneous DIRECTED RF: 0 Referrals: Heather Tapia DO [Primary Care Provider] -
[2019-01-01 15:24] LABS: Procalcitonin 0.36 ng/mL (<0.5)
[2019-01-01 15:46] VITALS: BP 161/76; PULSE 78; O2SAT 96
[2019-01-01] MEDS: DOXYCYCLINE HYCLATE 100 MG TABLET PO (16:27)
[2019-01-01 16:32] VITALS: BP 164/97; PULSE 78; RESP 18; O2SAT 98
[2019-01-01 16:56] VITALS: TEMP 36.9
[2019-01-01 18:27] LABS: Adenovirus Not Detected (Not Detect); Bordetella pertussis Not Detected (Not Detect); Chlamydophila pneumoniae Not Detected (Not Detect); Coronavirus 229E Not Detected (Not Detect); Coronavirus HKU1 Not Detected (Not Detect); Coronavirus NL 63 Not Detected (Not Detect); Coronavirus OC43 Not Detected (Not Detect); Human Metapneumovirus Not Detected (Not Detect); Human Rhinovirus/Enterovirus Not Detected (Not Detect); Influenza A Not Detected (Not Detect); Influenza B Not Detected (Not Detect); Mycoplasma pneumoniae Not Detected (Not Detect); Parainfluenza Virus 1 Not Detected (Not Detect); Parainfluenza Virus 2 Not Detected (Not Detect); Parainfluenza Virus 3 Not Detected (Not Detect); Parainfluenza Virus 4 Not Detected (Not Detect); Respiratory Syncytial Virus Not Detected (Not Detect)
== END 2019-01-01 16:58 | disposition home or self-care (01) ==
PROVIDERS: Emergency Provider Nurse Practitioner Family; PCP Family Medicine
DX: J18.9 Pneumonia, unspecified organism (principal); R79.89 Other specified abnormal findings of blood chemistry; M25.512 Pain in left shoulder; R05 Cough; R07.9 Chest pain, unspecified; Z79.01 Long term (current) use of anticoagulants
CPT/HCPCS: 36415; 71045; 73030; 73070; 80053; 82550; 83690; 83735; 83880; 84145; 84484; 85025; 85610; 85730; 87502; 87633; 87651; 93005; 99283; 99285

== ENCOUNTER 2019-01-06 11:41 | Inpatient (IN) | payer MEDICARE, OTHER, SELFPAY ==
[2019-01-06 11:48] VITALS: BP 152/93; PULSE 83; RESP 18; TEMP 36.9; O2SAT 94
--- NOTE | 2019-01-06 12:00 | DI.RAD.S_ITS ---
PROCEDURE: XR CHEST 1V INDICATIONS: pneumonia TECHNIQUE: One view of the chest was acquired. COMPARISON: [facility], CR, XR CHEST FOR PICC 1V, 01/06/2019, 13:50. [facility], CR, XR CHEST 1V, 01/01/2019, 13:24. FINDINGS: Surgical changes and devices: Sternotomy wires, probable prior CABG. Left breast region surgical clips, PICC line from a left-sided approach extends in normal position into the superior vena cava.. Lungs and pleura: Lungs are clear. No pleural effusions or pneumothorax. Mediastinum: Mediastinal contours appear normal. Heart size is at the upper limits of normal. Bones and chest wall: No suspicious bony lesions. Overlying soft tissues appear unremarkable. IMPRESSION: Prior presumed CABG. Prior presumed breast carcinoma surgery on the left. PICC line in normal position from left-sided approach. Heart size is upper limits of normal, no pneumonia found. Dictated by: Anival Turner M.D. on 01/06/2019 at 14:56 Approved by: Anival Turner M.D. on 01/06/2019 at 14:57
[2019-01-06 12:19] VITALS: BMI 24.7
--- NOTE | 2019-01-06 12:34 | PC.NURSE ---
Patient arrived as direct admit from Dr. Khan office. Transferred to bed by 2 W[employer] F[employer]ER's. Denies acute pain but states her lower back is sore. VSS, 90-95% on continuous pulse ox noted. DI nurse Marlyn paged and to bedside to evaluate for PICC placement. Patient states her son is with her but had to leave briefly to check on his dog. Patient is alert and oriented, able to make needs known, and agrees to call for assistance. Will continue to monitor.
--- NOTE | 2019-01-06 13:30 | DI.RAD.S_ITS ---
PROCEDURE: XR CHEST FOR PICC 1V INDICATIONS: PICC Placement Confirmation COMPARISON: [facility], , XR CHEST 1V, 01/01/2019, 13:24. FINDINGS: PICC was placed by the intravenous therapy team from the left side. Fluoroscopic spot film demonstrates the tip of PICC projecting to the area of the mid SVC. IMPRESSION: Tip of PICC projects to the area of the mid SVC. Dictated by: Eh Martinez M.D. on 01/06/2019 at 14:12 Approved by: Eh Martinez M.D. on 01/06/2019 at 14:14
--- NOTE | 2019-01-06 13:51 | PC.NURSE ---
PICC line placement with xray confirmation in progress. will start antibiotics as ordered once in place and verified. continue to follow.
[2019-01-06] MEDS: CEFTRIAXONE 1 GM/50 ML FROZ.PIGGY IV (14:17)
[2019-01-06 14:29] LABS: Add Manual Diff / Slide Review NO; Basophils Absolute Auto 0 /uL (0-100); Basophils Percent Auto 0.4 % (0-2); Eosinophils Absolute Auto 0 /uL (0-450); Eosinophils Percent Auto 0.6 % (2-4); Hematocrit 32.8 % (36-46); Hemoglobin 10.8 g/dL (12.0-16.0); Lymphocytes Absolute Auto 1300 /uL (1100-4500); Lymphocytes Percent Auto 16.1 % (25-40); Mean Corpuscular Hemoglobin 31.9 PG (26-34); Mean Corpuscular Volume 96.8 fL (80-100); Monocytes Absolute Auto 600 /uL (0-900); Monocytes Percent Auto 7.3 % (3-14); Neutrophils Absolute Auto 6200 /uL (1500-7000); Neutrophils Percent Auto 75.6 % (50-75); Platelet Count 340 X10^3/uL (150-400); Red Blood Cell Count 3.39 X10^6/uL (4.0-5.2); Red Cell Distribution Width 16.5 % (11.6-14.8); White Blood Cell Count 8.2 X10^3/uL (4.5-11.0)
[2019-01-06 14:35] LABS: Alanine Aminotransferase 6 IU/L (<35); Albumin 3.3 g/dL (3.5-5.0); Albumin Globulin Ratio 1.1 (1.0-2.8); Alkaline Phosphatase 104 U/L (38-126); Aspartate Aminotransferase 11 IU/L (14-36); Bilirubin Total 0.8 mg/dL (0.2-1.3); Blood Urea Nitrogen 7 mg/dL (7-17); Calcium 9.1 mg/dL (8.4-10.2); Carbon Dioxide 30 mmol/L (22-32); Chloride 101 mmol/L (98-107); Estimated Glomerular Filt Rate > 60.0 mL/min (>60); Globulin 2.9 g/dL (1.7-4.1); Glucose 114 mg/dL (80-110); HEMOLYSIS < 15 (0-50); Potassium 3.6 mmol/L (3.4-5.1); Sodium 137 mmol/L (137-145); Total Protein 6.2 g/dL (6.3-8.2)
--- NOTE | 2019-01-06 14:49 | PC.NURSE ---
Initial skin assessment completed by this RN, but unable to complete admission two RN check with photos due to timing of procedures and shift change. Patient noted to have bruising on right buttocks, as well as small pink opening to coccyx area with surrounding denuded skin. Will request evening shift to photograph and complete documentation assessment.
[2019-01-06 15:23] LABS: B Type Natriuretic Peptide 1110 (<100)
[2019-01-06] MEDS: AZITHROMYCIN 250 MG TABLET 500 MG PO (15:51)
[2019-01-06 15:55] VITALS: BP 149/84; PULSE 79; RESP 22; TEMP 36.7; O2SAT 97
[2019-01-06 16:19] LABS: Influenza A and B by PCR Rapid Negative (Negative)
[2019-01-06] MEDS: ONDANSETRON 4 MG/2 ML INJ IV (17:40)
[2019-01-06] MEDS: GABAPENTIN 300 MG CAPSULE PO (18:02)
[2019-01-06] MEDS: HYDROCODONE/ACET 5/325 TABLET 1 TAB PO (18:16)
[2019-01-06 19:30] VITALS: BP 145/77; PULSE 92; RESP 18; TEMP 37.1; O2SAT 93
[2019-01-06] MEDS: LOSARTAN 50 MG TABLET PO (20:11)
[2019-01-06] MEDS: METOPROLOL IR 50 MG TABLET 25 MG PO (20:12)
[2019-01-06] MEDS: PANTOPRAZOLE 40 MG TABLET PO (20:14)
--- NOTE | 2019-01-06 21:11 | P.HP_ITS ---
History of Present Illness History of Present Illness Date Patient Seen: 01/06/19 Time Patient Seen: 12:00 Chief complaint: failure of outpatient pneumonia treatment and CHF Narrative: Patient is an 84 yo female with history of CAD post CABG, systolic heart failure LVEF 50%, atrial fibrillation, hypertension, hyperlipidemia, CVA, lower extremity and upper extremity arterial thrombus s/p thrombectomy, protein S and protein C deficiency subtherapeutic INR who presented to clinic today with her son to follow up from emergency department visit for pneumonia last week. She lives with her son who serves as her caregiver. Her health has deteriorated after she had a very bad year in 2018. She continues with a productive cough of white suptum which has cause her ribs to ache. She has baseline low back pain and says that it is worse now. Has left leg pain and history of knee osteoarthritis. Patient and son report that admission was not discussed with them at the ED visit. However documentation says otherwise and that patient wanted to go home. Son reports that patient was feverish last night. Has had ongoing chills. Remains fatigued. Patient History Medical History (Updated 01/06/19 @ 21:48 by Heather Tapia DO) Anxiety (Chronic) 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) Asthma (Chronic) Breast cancer (Resolved ~2001) CAD (coronary artery disease) (Chronic) Cerebrovascular accident (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 right middle cerebral artery (Inactive 04/27/17) Cervical cancer, FIGO stage I (Chronic) Cholelithiasis (Chronic) Chronic back pain (Chronic) Developmental disorder (Chronic) Essential hypertension (Chronic 02/19/12) Fibrocystic breast disease (Chronic) GERD (gastroesophageal reflux disease) (Chronic) History of colon polyps (Resolved 02/19/12) History of left breast cancer (Acute ~2008) Hyperlipidemia (Chronic) IBS (irritable bowel syndrome) (Chronic) Measles (Resolved) Middle cerebral artery stenosis (Chronic ~10/2017) Obesity with body mass index (BMI) of 30.0 to 39.9 (Chronic 02/19/12) Osteoarthritis of knees, bilateral (Acute) Personal history of other malignant neoplasm of skin (Resolved 02/19/12) 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) Systolic congestive heart failure with reduced left ventricular function, NYHA class 2 (Chronic 10/26/10) Surgical History Anesthesia (Inactive) Status post arthroscopy Status post biopsy (~2014) Status post breast lumpectomy (~2008) Status post cholecystectomy Status post coronary artery bypass graft Status post hysterectomy (~2009) Family & Social History Social History: household members children Prior Living Arrangements Mobile home Safety & Behavioral: Feels Safe in Current Yes Environment Been Physically Hurt or No Threatened By a Person Suicidal Ideation Description None Suicide Plan Description No Plan Tobacco & Substance use: Smoking Status Never smoker alcohol intake never alcohol intake frequency holiday/special occasion Substance Use Type does not use Meds Home Medications and Allergies Home Medications Medication Instructions Recorded Confirmed Type Spacer: Inhaler Spacer Device 1 ea MISCELLANEOUS DIRECTED 10/27/17 01/06/19 History atorvastatin 80 mg PO QPM 10/27/17 01/06/19 History mupirocin 1 applic TOPICAL DIRECTED 12/03/17 01/06/19 History nitroglycerin [Nitrostat] 0.4 mg SUBLINGUAL PRN PRN 12/03/17 01/06/19 History warfarin 3 mg tablet 1.5 mg PO QPM #60 tab 02/11/18 01/06/19 Rx Handicap Parking #1 ea 06/04/18 01/06/19 Rx albuterol sulfate 90 mcg/actuation 2 puff INHALATION Q6H PRN #8 gram 09/22/18 01/06/19 Rx aerosol inhaler metoprolol tartrate 50 mg tablet 25 mg PO BID #90 tab 10/13/18 01/06/19 Rx losartan 50 mg tablet 50 mg PO BID #180 tab 10/25/18 01/06/19 Rx pantoprazole 40 mg tablet,delayed 40 mg PO BID #60 tab 11/01/18 01/06/19 Rx release hydrocodone 5 mg-acetaminophen 325 1 tab PO Q6H PRN #112 tab 12/16/18 01/06/19 Rx mg tablet gabapentin 100 mg capsule 100 mg PO Q8H #90 cap 12/31/18 01/06/19 Rx doxycycline hyclate 100 mg PO BID #20 cap 01/01/19 01/06/19 Rx Allergies Allergy/AdvReac Type Severity Reaction Status Date / Time furosemide [FUROSEMIDE] Allergy Mild RASH Verified 01/06/19 10:37 sertraline [SERTRALINE] Allergy Mild FEELS Verified 01/06/19 10:37 DRUGGED lisinopril AdvReac Mild Cough Verified 01/06/19 10:37 Review of Systems Constitutional Constitutional: Reports anorexia, Reports body ache(s), Reports chills, Reports fatigue, Reports fever(s), Reports lack of energy, Reports poor appetite and Reports weakness Cardiovascular Cardiovascular: Denies chest pain, Denies fast heart rate, Reports leg pain with activity, Reports leg swelling and Reports shortness of breath Respiratory Respiratory: Reports chest congestion, Reports cough, Reports pain with cough, Reports dyspnea and Reports wheezing Gastrointestinal Gastrointestinal: Reports heartburn, Reports nausea and Denies vomiting Musculoskeletal Musculoskeletal: Reports abnormal gait, Reports back pain, Reports myalgias, Reports arthralgias, Reports limited range of motion, Reports muscle weakness and Reports numbness Neurologic Neurologic: Reports abnormal gait, Reports numbness and Reports weakness Psychiatric Psychiatric: Reports anxiety Endocrine Endocrine: Reports fatigue Allergic/Immunologic Allergic/Immunologic: Reports wheezing Exam Vital Signs (past 8 hours): - 01/06/19 15:55 01/06/19 19:30 Temperature 98.1 F 98.7 F Pulse Rate 79 92 H Respiratory Rate 22 18 Blood Pressure 149/84 H 145/77 H Pulse Oximetry 97 93 Oxygen Delivery Method Room Air Oxygen Flow Rate 0 Narrative Exam Narrative: Skin: Warm and dry without rashes. Thickened toe nails with fungus. 1cm red, denuded sore on coccyx. Many seborrheic keratoses. HEENT: ?Mouth: [place] mucosa with no lesions. Unremarkable submandibular glands and temporomandibular joints. Moist mucus membranes with no petechial or bleeding. ?Neck/Thyroid: Anterior cervical, posterior cervical and supraclavicular lymph nodes normal with no swelling or masses. Chest/Lungs: Reduced but symmetric diaphragmatic excursion with equal resonance. No tenderness to percussion of the spine or costovertebral angles. Mild expiratory rhonchi in the L lower lung. Scattered expiratory wheezing in the RUL. Cardiovascular:Regularly regular rate and rhythm (S1, S2). No murmurs appreciated, possible S4/gallop. Apical impulse not appreciated. Bilateral brachial and dorsalis pedis pulses (1/4). Femoral pulses not examined. Abdomen:Normal appearance with no distension, bulges, bruising, or lesions. Tenderness to soft palpation in all 4 quadrants. Normal bowel sounds. Neurologic: Mental Status: Alert, oriented to person, place, and time. Speech appropriate with mild-moderate slurring of words periodically. Cranial nerves II-XII intact grossly Objective Labs Result Diagrams: 01/06/19 14:00 01/06/19 14:00 Labs: Laboratory Results - last 24 hr 01/06/19 01/06/19 01/06/19 14:00 14:00 14:00 WBC 8.2 RBC 3.39 L Hgb 10.8 L Hct 32.8 L MCV 96.8 MCH 31.9 MCHC 33.0 RDW 16.5 H Plt Count 340 Neut % (Auto) 75.6 H Lymph % (Auto) 16.1 L [place] % (Auto) 7.3 Eos % (Auto) 0.6 L Baso % (Auto) 0.4 Neut # (Auto) 6200 Lymph # (Auto) 1300 [place] # (Auto) 600 Eos # (Auto) 0 Baso # (Auto) 0 Sodium 137 Potassium 3.6 Chloride 101 Carbon Dioxide 30 BUN 7 Creatinine 0.50 L Estimated GFR > 60.0 BUN/Creatinine Ratio 14.0 Glucose 114 H Calcium 9.1 Total Bilirubin 0.8 AST 11 L ALT 6 Alkaline Phosphatase 104 B-Natriuretic Peptide 1110 H Total Protein 6.2 L Albumin 3.3 L Globulin 2.9 Albumin/Globulin Ratio 1.1 Influenza A & B (PCR) 01/06/19 15:50 WBC RBC Hgb Hct MCV MCH MCHC RDW Plt Count Neut % (Auto) Lymph % (Auto) [place] % (Auto) Eos % (Auto) Baso % (Auto) Neut # (Auto) Lymph # (Auto) [place] # (Auto) Eos # (Auto) Baso # (Auto) Sodium Potassium Chloride Carbon Dioxide BUN Creatinine Estimated GFR BUN/Creatinine Ratio Glucose Calcium Total Bilirubin AST ALT Alkaline Phosphatase B-Natriuretic Peptide Total Protein Albumin Globulin Albumin/Globulin Ratio Influenza A & B (PCR) Negative Assessment & Plan Assessment & Plan narrative: Community acquired pneumonia, failed outpatient t reatment. - ceftriaxone and oral azithromycin. - check WBC and chest xray - supplemental ox2 if needed, nebulizers if helpful. Pleural effusion on 01/01/2019 chest xray. No overt signs of heart failure on physical exam. - check BNP - consider diuresis if necesary, does have furosemide allergy would use chlorthalidone or metazolone - hasn't had echocardiogram since 2010. will order this Failure to thrive. - 15 pound weight loss in the last 2 months. 81 pound weight loss since 04/2017 - dietary consult - has had problems with reflux, nausea and vomiting in the past - she did consume significant amount of food shortly after admission History of afib, protein C and S deficiency, history of arterial thrombus - warfarin management has been difficult. Son will not let her have blood draw if finger stick is not available at lab, has stopped going to [facility] in [place]. Will not continue on warfarin. Will discuss an alternative with son tomorrow. Chronic pain from osteoarthritis: - continue gabapentin (will increase dose) and hydrocodone Atrial fibrillation, hypertension, hyperlipidemia. - continue home medications. Code status: full code DVT prophylaxis: lovenox Patient has failed outpatient therapy and will require at least 2 midnights to adequate treat her pneumonia and assess her cardiac status.
[2019-01-06 22:31] VITALS: O2SAT 97
[2019-01-06 22:37] VITALS: PULSE 56; O2SAT 97
[2019-01-06 23:00] VITALS: BP 145/86; PULSE 73; RESP 16; TEMP 36.8; O2SAT 95
[2019-01-06] MEDS: ENOXAPARIN 40 MG/0.4 ML SYRINGE SUBCUT (23:53)
[2019-01-07] MEDS: HYDROCODONE/ACET 5/325 TABLET 1 TAB PO ×3 (04:37→23:32)
[2019-01-07 04:51] VITALS: BP 126/78; PULSE 84; RESP 16; TEMP 36.9; O2SAT 94
[2019-01-07 05:45] LABS: Add Manual Diff / Slide Review NO; Basophils Absolute Auto 0 /uL (0-100); Basophils Percent Auto 0.7 % (0-2); Eosinophils Absolute Auto 100 /uL (0-450); Hematocrit 29.7 % (36-46); Lymphocytes Absolute Auto 1800 /uL (1100-4500); Lymphocytes Percent Auto 23.7 % (25-40); Mean Corpuscular HGB Conc 33.7 % (30-36); Mean Corpuscular Volume 94.9 fL (80-100); Monocytes Absolute Auto 800 /uL (0-900); Monocytes Percent Auto 10.2 % (3-14); Neutrophils Absolute Auto 4900 /uL (1500-7000); Neutrophils Percent Auto 64.4 % (50-75); Platelet Count 306 X10^3/uL (150-400); Red Blood Cell Count 3.13 X10^6/uL (4.0-5.2); Red Cell Distribution Width 16.7 % (11.6-14.8); White Blood Cell Count 7.5 X10^3/uL (4.5-11.0)
[2019-01-07 05:53] LABS: BUN Creatinine Ratio 16.7 (6-22); Blood Urea Nitrogen 10 mg/dL (7-17); Calcium 8.6 mg/dL (8.4-10.2); Carbon Dioxide 31 mmol/L (22-32); Chloride 100 mmol/L (98-107); Estimated Glomerular Filt Rate > 60.0 mL/min (>60); Glucose 103 mg/dL (80-110); HEMOLYSIS 21 (0-50); Potassium 3.8 mmol/L (3.4-5.1); Sodium 136 mmol/L (137-145)
--- NOTE | 2019-01-07 05:53 | PC.NURSE ---
Addendum entered by Lula Monroy R.N. 01/07/19 06:34: Patient used bedpan for 450ml out. Addendum entered by Lula Monroy R.N. 01/07/19 06:13: Dr Olmedo returned page, updated on patients status, no new orders at this time. Original Note: Patient has not had the urge to void, brief is dry, bladder scan was performed for estimated volume of 506ml, will call ammunition specialist provider.
[2019-01-07 06:02] LABS: B Type Natriuretic Peptide 609 (<100)
[2019-01-07 06:39] LABS: RBC Urine None Seen (0-5/HPF)
[2019-01-07 06:41] LABS: Appearance Urine UA CLEAR; Bilirubin Urine UA NEGATIVE (NEGATIVE); Color Urine UA YELLOW; Glucose Urine UA NEGATIVE (Negative); Ketones Urine UA NEGATIVE (NEGATIVE); Leukocyte Esterase Urine UA NEGATIVE (NEGATIVE); Nitrite Urine UA NEGATIVE (Negative); Occult Blood Urine UA NEGATIVE (Negative); Protein Urine UA NEGATIVE (Negative); Specific Gravity Urine UA <=1.005 (1.000-1.035); Urobilinogen Urine UA 0.2 E.U./dL (0.2)
[2019-01-07 06:44] LABS: pH Urine UA 6.5 (4.5-8.0)
[2019-01-07 06:50] LABS: Bacteria Urine Occasional (0-1); Squamous Epithelial Cell Urine 1-5 /HPF (0-5/HPF); WBC Urine 0-1/HPF (0-5/HPF)
[2019-01-07 06:53] LABS: Culture Indicated Urine Cult Not Indicated
[2019-01-07 08:00] VITALS: BP 151/75; PULSE 83; RESP 16; TEMP 36.6; O2SAT 92
[2019-01-07] MEDS: METOPROLOL IR 50 MG TABLET 25 MG PO ×2 (08:35→20:56)
[2019-01-07] MEDS: GABAPENTIN 300 MG CAPSULE PO ×3 (08:36→20:56)
[2019-01-07] MEDS: LOSARTAN 50 MG TABLET PO ×2 (08:36→20:56)
[2019-01-07] MEDS: PANTOPRAZOLE 40 MG TABLET PO ×2 (08:36→20:56)
--- NOTE | 2019-01-07 08:38 | P.PN_ITS ---
Subjective Subjective Date Patient Seen: 01/07/19 Time Patient Seen: 08:38 Interval history: Patient slept well overnight. 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 Ongoing pain in her lower ribs. This is intermittent. Pain in her tailbone from ulcer. She is also complaining of pain on her lower gum line. She had her teeth removed about 4 months ago she says. She tells me that she has not been able to sleep well at home. Recliner chair has broken, and the couch is uncomfortable. She is hungry and ready for breakfast. She denies nausea. Exam Vital Signs (past 8 hours): - 01/07/19 04:51 Temperature 98.4 F Pulse Rate 84 Respiratory Rate 16 Blood Pressure 126/78 Pulse Oximetry 94 Oxygen Delivery Method Room Air Oxygen Flow Rate 0 Narrative Exam Narrative: General: Well-developed, pale, thin, female, no acute distress. HEENT: irritation on the lower anterior gum line Heart: irRegular rate and rhythm Lungs: mostly Clear to auscultation bilaterally, few expiratory wheezes, no rales or rhonchi Chest: some tenderness to palpation to the underside of the left sided lower ribs Abd: soft, nontender Extremities: Warm and well perfused, no edema, SCDs in place Objective Labs Result Diagrams: 01/07/19 05:35 01/07/19 05:35 Labs: Laboratory Results - last 24 hr 01/06/19 01/06/19 01/06/19 14:00 14:00 14:00 WBC 8.2 RBC 3.39 L Hgb 10.8 L Hct 32.8 L MCV 96.8 MCH 31.9 MCHC 33.0 RDW 16.5 H Plt Count 340 Neut % (Auto) 75.6 H Lymph % (Auto) 16.1 L [place] % (Auto) 7.3 Eos % (Auto) 0.6 L Baso % (Auto) 0.4 Neut # (Auto) 6200 Lymph # (Auto) 1300 [place] # (Auto) 600 Eos # (Auto) 0 Baso # (Auto) 0 Sodium 137 Potassium 3.6 Chloride 101 Carbon Dioxide 30 BUN 7 Creatinine 0.50 L Estimated GFR > 60.0 BUN/Creatinine Ratio 14.0 Glucose 114 H Calcium 9.1 Total Bilirubin 0.8 AST 11 L ALT 6 Alkaline Phosphatase 104 B-Natriuretic Peptide 1110 H Total Protein 6.2 L Albumin 3.3 L Globulin 2.9 Albumin/Globulin Ratio 1.1 Urine Color Urine Appearance Urine pH Ur Specific [place] Urine Protein Urine Glucose (UA) Urine Ketones Urine Occult Blood Urine Nitrate Urine Bilirubin Urine Urobilinogen Ur Leukocyte Esterase Urine RBC Urine WBC Ur Squamous Epith Cells Urine Bacteria Ur Culture Indicated? Micro UA Comment Influenza A & B (PCR) 01/06/19 01/07/19 01/07/19 15:50 05:35 05:35 WBC 7.5 RBC 3.13 L Hgb 10.0 L Hct 29.7 L MCV 94.9 MCH 32.0 MCHC 33.7 RDW 16.7 H Plt Count 306 Neut % (Auto) 64.4 Lymph % (Auto) 23.7 L [place] % (Auto) 10.2 Eos % (Auto) 1.0 L Baso % (Auto) 0.7 Neut # (Auto) 4900 Lymph # (Auto) 1800 [place] # (Auto) 800 Eos # (Auto) 100 Baso # (Auto) 0 Sodium 136 L Potassium 3.8 Chloride 100 Carbon Dioxide 31 BUN 10 Creatinine 0.60 Estimated GFR > 60.0 BUN/Creatinine Ratio 16.7 Glucose 103 Calcium 8.6 Total Bilirubin AST ALT Alkaline Phosphatase B-Natriuretic Peptide 609 H Total Protein Albumin Globulin Albumin/Globulin Ratio Urine Color Urine Appearance Urine pH Ur Specific [place] Urine Protein Urine Glucose (UA) Urine Ketones Urine Occult Blood Urine Nitrate Urine Bilirubin Urine Urobilinogen Ur Leukocyte Esterase Urine RBC Urine WBC Ur Squamous Epith Cells Urine Bacteria Ur Culture Indicated? Micro UA Comment Influenza A & B (PCR) Negative 01/07/19 06:33 WBC RBC Hgb Hct MCV MCH MCHC RDW Plt Count Neut % (Auto) Lymph % (Auto) [place] % (Auto) Eos % (Auto) Baso % (Auto) Neut # (Auto) Lymph # (Auto) [place] # (Auto) Eos # (Auto) Baso # (Auto) Sodium Potassium Chloride Carbon Dioxide BUN Creatinine Estimated GFR BUN/Creatinine Ratio Glucose Calcium Total Bilirubin AST ALT Alkaline Phosphatase B-Natriuretic Peptide Total Protein Albumin Globulin Albumin/Globulin Ratio Urine Color Yellow Urine Appearance Clear Urine pH 6.5 Ur Specific [place] <=1.005 Urine Protein Negative Urine Glucose (UA) Negative Urine Ketones Negative Urine Occult Blood Negative Urine Nitrate Negative Urine Bilirubin Negative Urine Urobilinogen 0.2 Ur Leukocyte Esterase Negative Urine RBC None seen Urine WBC 0-1/hpf Ur Squamous Epith Cells 1-5 /hpf Urine Bacteria Occasional (0-1) Ur Culture Indicated? Cult not indicated Micro UA Comment * Influenza A & B (PCR) Assessment & Plan Assessment & Plan narrative: Community acquired pneumonia, failed outpatient treatment with pleural effusion. Improving. - ceftriaxone and oral azithromycin. Would have her transition back to oral doxycycline which she has at home from her ED visit on discharge. - supplemental ox2 if needed, nebulizers if helpful. - chest xray shows resolution of pleural effusion Pleural effusion on 01/01/2019 chest xray. No overt signs of heart failure on physical exam. She has improved this morning without diuresis. This was probably caused by inadequate rate control during her infection. Her compliance with medication is questionable. - BNP was elevated with improvement this morning - consider diuresis if necesary, does have furosemide allergy would use chlorthalidone or metazolone - hasn't had echocardiogram since 2010. will order this Failure to thrive. - 15 pound weight loss in the last 2 months. 81 pound weight loss since 04/2017 - dietary consult - has had problems with reflux, nausea and vomiting in the past - she did consume significant amount of food shortly after admission and is hungry this morning History of afib, protein C and S deficiency, history of arterial thrombus, CVA - warfarin management has been difficult. Son will not let her have blood draw if finger stick is not available at lab, has stopped going to [facility] in [place]. Will not continue on warfarin. Will discuss an alternative with son tomorrow. Chronic pain from osteoarthritis: - continue gabapentin (will increase dose) and hydrocodone - oragel for dental pain Atrial fibrillation, hypertension, hyperlipidemia. - continue home medications. - crush atorvastatin in carrier Code status: full code DVT prophylaxis: lovenox Patient has failed outpatient therapy and will require another 24-48 hours of care to manage her pneumonia and heart failure.
--- NOTE | 2019-01-07 08:47 | DI.ECHO.S_ITS ---
[facility]---------+ [facility] +---------+ : : [address] : : : : [id number] : : : : Phone: [phone]+ Echocardiogram Report + + :Name: SHAUN VALDEZ Study Date: 01/07/2019 Height: 67 in : :[facility] Weight: 157 lb : : Gender: Female BSA: 1.8 m2 : :: 1935 Age: 83 yrs BP: 152/93 mmHg: :Reason For Study: Congestive Heart Failure : : Performed By: Lisa Nation : :Referring: RODRIGUEZ TINOCO : + + Interpretation Summary Left ventricular systolic function is moderately reduced with the ejection fraction visually estimated to be 35-40% with moderate global hypokinesis and more severe hypokinesis in the inferior and inferoposterior wall which appears unchanged from the previous study although global contractility appears to be slightly less dynamic. Left ventricular wall thickness is mildly increased. Diastolic function could not be accurately assessed due to atrial fibrillation. The right ventricle is mildly dilated and systolic function is mildly reduced and appears slightly less dynamic compared to the previous study. The right ventricular systolic pressure is estimated to be at least 37 mmHg based on an estimated right atrial pressure of 3 mm Hg, and is likely similar compared to the previous study. The left atrium is severely dilated and the right atrium is moderately dilated. Both atria have significantly increased in size since the prior echo exam. There is moderate mitral regurgitation that is unchanged compared to the previous study. There is moderate tricuspid regurgitation that is more prominent compared to the previous study. The ascending aorta is mildly enlarged. There is a very large left-sided pleural effusion which was not seen on the previous study. Procedure: A two-dimensional transthoracic echocardiogram with color flow and Doppler was performed. The study quality was technically good. Comparison is made with the echocardiogram of 10-30-17. The heart rate ranged between 59- 67 bpm during the study. Left Ventricle: The left ventricle is normal in size. Left ventricular wall thickness is mildly increased. Left ventricular systolic function is moderately reduced. The ejection fraction is estimated to be 35-40%. There is moderate global hypokinesis of the left ventricle. With more severe hypokinesis in the inferior and inferoposterior wall which appears unchanged from the previous study although global contractility appears to be slightly less dynamic. Diastolic function could not be accurately assessed due to atrial fibrillation. Right Ventricle: The right ventricle is mildly dilated. Right ventricular systolic function is mildly reduced. This is slightly less dynamic compared to the previous study. Atria: The left atrium is severely dilated. Both atria have significantly increased in size since the prior echo exam. The right atrium is moderately dilated. The interatrial septum is intact with no evidence for an atrial septal defect. Mitral Valve: There is moderate mitral annular calcification. The mitral valve leaflets appear mildly thickened, but open well. There is moderate mitral regurgitation. This is unchanged compared to the previous study. Aortic Valve: The aortic valve is trileaflet. The aortic valve is mildly calcified. The aortic valve opens well. No aortic regurgitation is present. Tricuspid Valve: The tricuspid valve leaflets are thin and pliable. There is moderate tricuspid regurgitation. This is more prominent compared to the previous study. The right ventricular systolic pressure is estimated to be at least 37 mmHg based on an estimated right atrial pressure of 3 mm Hg. This is unchanged compared to the previous study. Pulmonic Valve: The pulmonic valve is normal in structure and function. There is no pulmonic valvular regurgitation. Great Vessels: The aortic root is normal size. The ascending aorta is mildly enlarged. The aortic arch is normal in size. The IVC is of normal diameter and collapses greater than 50% with a sniff. This suggests a low right atrial pressure of 3 mm Hg. Pericardium/ Pleura There is no pericardial effusion. There is a very large left-sided pleural effusion. This is not seen compared to the previous study. MMode/2D Measurements & Calculations LVIDd: 5.0 cm Ao root diam: 3.2 cm LVIDs: 4.1 cm Aortic Jxn: 2.7 cm FS: 17.8 % asc Aorta Diam: 3.3 cm EPSS: 1.6 cm Ao Arch Diam (Prox Trans): 2.6 cm IVSd: 1.2 cm LVPWd: 0.99 cm LV luna. diameter/BSA (cm/m^2): 2.7 LV sys. diameter/BSA (cm/m^2): 2.2 LA dimension: 5.2 cm RA long axis: 5.8 cm LA A2 area: 27.3 cm2 RA area: 24.5 cm2 LA A4 area: 30.4 cm2 RA vol: 87.7 ml LA length (vol): 7.2 cm RA : 48.1 ml/m2 LA vol: 97.6 ml IVC diam: 1.9 cm LA vol index: 53.5 ml/m2 RVDd major: 6.1 cm RVD1 (basal): 4.3 cm RVD2 (mid): 3.3 cm Doppler Measurements & Calculations Ao V2 max: 126.8 cm/sec Med Peak E' Bernardo: 4.3 cm/sec Ao V2 mean: 88.5 cm/sec Lat Peak E' Bernardo: 9.1 cm/sec Ao max P.4 mmHg MV P1/2t: 61.3 msec Ao mean P.5 mmHg Ao V2 VTI: 27.0 cm TR max bernardo: 289.9 cm/sec MV V2 mean: 31.0 cm/sec TR max P.6 mmHg MV mean P.77 mmHg PA V2 max: 75.1 cm/sec MV V2 VTI: 27.0 cm PA V2 mean: 46.3 cm/sec PA mean P.0 mmHg PA Accel Time: 0.11 sec MV P1/2t max bernardo: 119.3 cm/sec MVA(P1/2t): 3.6 cm2 Reading Physician:KYM
[2019-01-07 09:33] LABS: HEMOLYSIS < 15 (0-50); Iron 33 ug/dL (37-170)
[2019-01-07 09:43] LABS: Percent Iron Saturation 14 % (15-50); Total Iron Binding Capacity 231 ug/dL (265-497); Transferrin 169 mg/dL (206-381)
[2019-01-07] MEDS: SODIUM CHLORIDE 0.9% FLUSH 10 ML IV ×2 (10:12→20:57)
[2019-01-07 10:22] LABS: Vitamin B12 Reflex MMA if <400 181 pg/mL (239-931)
--- NOTE | 2019-01-07 11:38 | PT.IIE ---
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) Asthma (Chronic) Breast cancer (Resolved ~2001) CAD (coronary artery disease) (Chronic) Cerebrovascular accident (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 right middle cerebral artery (Inactive 04/27/17) Cervical cancer, FIGO stage I (Chronic) Cholelithiasis (Chronic) Chronic back pain (Chronic) Developmental disorder (Chronic) Essential hypertension (Chronic 02/19/12) Fibrocystic breast disease (Chronic) GERD (gastroesophageal reflux disease) (Chronic) History of colon polyps (Resolved 02/19/12) History of left breast cancer (Acute ~2008) Hyperlipidemia (Chronic) IBS (irritable bowel syndrome) (Chronic) Measles (Resolved) Middle cerebral artery stenosis (Chronic ~10/2017) Obesity with body mass index (BMI) of 30.0 to 39.9 (Chronic 02/19/12) Osteoarthritis of knees, bilateral (Acute) Personal history of other malignant neoplasm of skin (Resolved 02/19/12) 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) Systolic congestive heart failure with reduced left ventricular function, NYHA class 2 (Chronic 10/26/10) Physical Therapy Inpatient Evaluation/Re-Eval M1 PT/OT-IP Prior Functional Status Start: 01/07/19 12:25 Freq: NEEDED Status: Active Protocol: Document 01/07/19 11:38 AB (Rec: 01/07/19 12:36 AB [id number]) Medical Review Prior Functional Status Medical History Reviewed Yes Communication able to make needs known Mobility and Gait pt stated that she is modified independent with all mobilities and ambulation using FWW Social History Household Members children Living Arrangements Mobile home Number of Floors (Floors) One Floor Number of Stairs To Enter/Railing? 5 steps with B rails Home Environment High Toilet,Walk in Shower Home Equipment Front Wheel Walker,Bedside Commode,Raised Toilet Seat w/ Armrests,Shower Seat with Backrest,Hand Held Shower,Grab Bars Near Toilet,Grab Bars In Shower Additional Social History Comment pt stated that she has a caregiver that lives with them and she has 24/7 assist at home M2 PT-IP Current Condition Start: 01/07/19 12:25 Freq: NEEDED Status: Active Protocol: Document 01/07/19 11:38 AB (Rec: 01/07/19 12:36 AB [id number]) Physical Therapy Current Condition Current Condition Evaluation Date 01/07/19 Treatment Diagnosis PNA; CHF; difficulty in walking Onset Date 01/06/19 M3 PT-IP Subjective Start: 01/07/19 12:25 Freq: NEEDED Status: Active Protocol: Document 01/07/19 11:38 AB (Rec: 01/07/19 12:36 AB [id number]) Subjective Physical Therapy Visit Type Type Initial Evaluation Visit Start Time 11:38 Visit Stop Time 12:00 Total Visit Minutes 22 Number of HEALTH INFORMATION PROVIDER Visits 0 Physical Therapy Visit Comments Patient Comments pt agreeable to get out of bed Therapy Pain Assessment Pain When Pain Assessed At Rest Pain Present Pain Present Pain Reported Location Lower Back Scale Used pain scale not stated M4 PT-IP Mobility and Gait Start: 01/07/19 12:25 Freq: NEEDED Status: Active Protocol: Document 01/07/19 11:38 AB (Rec: 01/07/19 12:36 AB [id number]) PT-Bed Mobility Assessment Supine to Sit Supine to Sit Contact Guard Assistance,1 Person Assistance Scooting Scooting to Edge of Bed Standby Assistance PT-Transfer Assessment Sit to and From Stand Sit to and from Stand Moderate Assistance,1 Person Assistance,Use of Upper Extremities Equipment Transfer Assistive Device Gait Belt,Front Wheeled Walker Orthotic/Prosthetic Devices or Brace: No Transfers Transfer Destination Chair Transfer Technique ambulated using FWW Transfer Ability Level of Assist Moderate Assistance,1 Person Assistance,Use of Upper Extremities Comments Mobility Comments pt completed supine to sit CGA and cues. required increase time to complete task. completed sit to stand from EOB mod A and cues and ambulated to the chair using FWW mod A but with increase stooped posture and unsteadiness towards the end of ambulation requiring max cues for upright posture and safety. Nurse came in and want to check pt's buttocks . pt completed sit to stand from the chair mod A and cues and was able to maintain standing ~ 30 sec using FWW for support CGA and cues for upright posture. pt assisted back to sit and positioned on the chair. Left pt with OT. Gait Assessment Gait Gait Assistance Required: Moderate Assistance,1 Person Assist Distance (Feet) 12 Able to Maintain Weight Bearing Status No During Gait Assistive Devices Assistive Device Gait Belt,Front Wheeled Walker Orthotic/Prosthetic Devices or Brace: No Gait Deviations General Gait Pattern Antalgic,Decreased Stride Length,Decreased Feet Clearance Factors Limiting Gait Function Factors Limiting Gait Function Decreased Activity Tolerance, Decreased Strength,Pain,Poor Balance,Poor Safety Awareness Comments Gait Comments pt presenst with stooped posture and unsteady gait with increarse B knee flexion during stance phase towards end of ambulation. PT-Balance Assessment Sitting Balance and Reactions Static Sitting Balance Ability Good Dynamic Sitting Balance Ability Fair Standing Balance and Reactions Static Standing Balance Ability Fair Dynamic Standing Balance Ability Poor Device Used FWW M5 PT-IP Objective Assessments Start: 01/07/19 12:25 Freq: NEEDED Status: Active Protocol: Document 01/07/19 11:38 AB (Rec: 01/07/19 12:36 AB [id number]) Orientation Orientation/Cognition Level of Alertness Alert Orientation Name,Situation Safety Awareness Decreased Safety Awareness Gross Range of Motion Lower Extremity ROM Assessment Within Functional Limits Strength Lower Extremity Strength Hip 3+/5 Knee 4-/5 Muscle Tone Muscle Tone WNL Yes M6 PT-IP Treatment Start: 01/07/19 12:25 Freq: NEEDED Status: Active Protocol: Document 01/07/19 11:38 AB (Rec: 01/07/19 12:36 AB [id number]) Physical Therapy Treatment Education Education Provided Safety M7 PT-IP Assessment and Plan Start: 01/07/19 12:25 Freq: NEEDED Status: Active Protocol: Document 01/07/19 11:38 AB (Rec: 01/07/19 12:36 AB [id number]) PT Summary Assessment and Plan Potential Rehabilitation Potential Good Status of Condition at Evaluation Evolving Summary Impairments Pain,ROM,Strength,Balance, Coordination,Sensation,Tone, Cognition,Bed Mobility, Transfers,Gait,Activity Tolerance Assessment Summary pt requires mod A with mobility and unable to tolerate much activity with increase stooped posture and unsteadiness towards end of ambulation. d/c plan depending on progress. will continue to assess. Goals Bed Mobility Goal Independent Transfer Goal Independent,Front Wheeled Walker Gait Goal Independent,Front Wheel Walker Gait Distance 150 Other Goals up/down 5 steps B rails SBA Days to Meet Goals 10 Frequency of Treatment Frequency Of Treatment Once a Day Treatment Plan Physical Therapy Treatment Plan Bed Mobility Training,Transfer Training,Gait Training, Therapeutic Exercise,Balance Retraining,Post Op Education, Discharge Planning,Hot or Cold Pack,Neuromuscular Re-ed, Coordination Retraining,Manual Therapy Recommendations To Nursing Amount of Assist Needed 1 Person Assist Discharge Recommendations PT Discharge Recommendations Home with 24/7 Assist,Home Health,SNF Rehab Other Discharge Recommendations depending on progress: SNF vs home with 24/7 and HHPT
--- NOTE | 2019-01-07 11:44 | OT.IP.EVAL ---
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) Asthma (Chronic) Breast cancer (Resolved ~2001) CAD (coronary artery disease) (Chronic) Cerebrovascular accident (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 right middle cerebral artery (Inactive 04/27/17) Cervical cancer, FIGO stage I (Chronic) Cholelithiasis (Chronic) Chronic back pain (Chronic) Developmental disorder (Chronic) Essential hypertension (Chronic 02/19/12) Fibrocystic breast disease (Chronic) GERD (gastroesophageal reflux disease) (Chronic) History of colon polyps (Resolved 02/19/12) History of left breast cancer (Acute ~2008) Hyperlipidemia (Chronic) IBS (irritable bowel syndrome) (Chronic) Measles (Resolved) Middle cerebral artery stenosis (Chronic ~10/2017) Obesity with body mass index (BMI) of 30.0 to 39.9 (Chronic 02/19/12) Osteoarthritis of knees, bilateral (Acute) Personal history of other malignant neoplasm of skin (Resolved 02/19/12) 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) Systolic congestive heart failure with reduced left ventricular function, NYHA class 2 (Chronic 10/26/10) Surgical History (Last Reviewed 01/01/19 @ 19:01 by ADRIANA Butt-) Anesthesia (Inactive) Status post arthroscopy Status post biopsy (~2014) Status post breast lumpectomy (~2008) Status post cholecystectomy Status post coronary artery bypass graft Status post hysterectomy (~2009) Occupational Therapy Inpatient Evaluation/Re-Eval M1 PT/OT-IP Prior Functional Status Start: 01/07/19 12:38 Freq: NEEDED Status: Active Protocol: Document 01/07/19 11:44 [facility] (Rec: 01/07/19 12:54 [facility] [id number]) Medical Review Prior Functional Status Medical History Reviewed Yes Communication able to make needs known Mobility and Gait pt stated that she is modified independent with all mobilities and ambulation using FWW Activities of Daily Living and IADL's Pt states able to do her own dressing, bathing, and toileting needs on her own. Pt has assist for all IADl needs, including meals, finances, and medications. Prior Functional Level (Other details) Pt's son or ladyfriend there at home to assist pt as needed . Pt states never home alone. Social History Household Members children Living Arrangements Mobile home Number of Floors (Floors) One Floor Number of Stairs To Enter/Railing? 5 steps with B rails Home Environment High Toilet,Walk in Shower Home Equipment Front Wheel Walker,Bedside Commode,Raised Toilet Seat w/ Armrests,Shower Seat with Backrest,Hand Held Shower,Grab Bars Near Toilet,Grab Bars In Shower Additional Social History Comment pt stated that she has a caregiver that lives with them and she has 24/7 assist at home M2 OT-IP Current Condition Start: 01/07/19 12:38 Freq: Status: Active Protocol: Document 01/07/19 11:44 [facility] (Rec: 01/07/19 12:54 [facility] [id number]) Occupational Therapy Current Condition Current Condition Evaluation Date 01/07/19 Treatment Diagnosis Pleural effusion, decreased mobility Weight Bearing Status Weight Bearing Status Weight Bear as Tolerated M3 OT- IP Subjective and Pain Start: 01/07/19 12:38 Freq: Status: Active Protocol: Document 01/07/19 11:44 [facility] (Rec: 01/07/19 12:54 [facility] [id number]) OT- Subjective Occupational Therapy Visit Type Type Initial Evaluation Visit Start Time 11:44 Visit Stop Time 12:07 Total Visit Minutes 23 Occupational Therapy Visit Comments Patient Comments Pt agreeable to get up. OT Pain Assessment Pain When Pain Assessed During Mobility Pain Present Pain Present Pain Reported M4 OT- IP ADL's Start: 01/07/19 12:38 Freq: Status: Active Protocol: Document 01/07/19 11:44 [facility] (Rec: 01/07/19 12:54 [facility] [id number]) OT [id number] Comments OT Self-Feeding Comments Pt seen prior to lunch. OT ADL-Grooming General Evaluation Areas Needing Assistance Retrieving/Set-up of Grooming Items Comments OT Grooming Comments Pt able to comb her hair and wash her face after set-up. OT ADL-Dressing General Eval Lower Body Dressing Ability Standby Assistance,Moderate Assistance Comments OT Dressing Comments Pt able to doff socks while sitting in the recliner. Pt will need Mod a if having to stand as currently needing MODA to stand if having to percy brief/pants. OT ADL-Toileting Comments OT Toileting Comments Pt not having to use the toilet at this time. OT ADL-Bathing Comments OT Bathing Comments Not completed during this session, pt too tired. Pt's left toe nails needing to be cleaned and nursing aid able to assist to soak her feet. M5 OT- IP IADL's Start: 01/07/19 12:38 Freq: Status: Active Protocol: Document 01/07/19 11:44 [facility] (Rec: 01/07/19 12:54 [facility] [id number]) OT-Instrumental Activities of Daily Living Medication Management Medication Management Caregiver Administers Money Management Money Management Caregiver Provides Assistance Meal Preparation Meal Preparation Caregiver Provides Assist Paper Sample Clerk Paper Sample Clerk Caregiver Provides Assist Driving Driving Caregiver Provides Assist M6 OT- IP Functional Cognition Start: 01/07/19 12:38 Freq: Status: Active Protocol: Document 01/07/19 11:44 [facility] (Rec: 01/07/19 12:54 [facility] [id number]) Cognitive Factors Limiting Selfcare Function Cognitive Ability Level of Alertness Alert Patient Orientation Name,Place,Situation Attention Span Ability Capable of Focused Attention, Capable of Sustained Attention Ability to Follow Commands Able to Follow One Step Commands Safety Awareness Underestimates Need for Assistance Problem Solving Ability Unable to Identify Errors, Needs Assist to Identify Solutions Cognitive Comments Cognitive Assessment Comments Pt needing simple step commands to follow. Pt needing safety cues to use FWW to turn all the way around prior to reaching to recliner to sit down. OT- Vision and Hearing OT- Hearing Assessment OT- Hearing Assessment WFL OT- Vision Assessment Visual Acuity Glasses For Reading Vision Assessment Comments Pt able to read the clock accurately. M7 OT- IP Mobility and Balance Start: 01/07/19 12:38 Freq: Status: Active Protocol: Document 01/07/19 11:44 [facility] (Rec: 01/07/19 12:54 [facility] [id number]) OT- Bed Mobility Assessment Rolling Type of Rolling Roll to Left Level of Assistance Contact Guard Assistance OT-Transfer Assessment Sit to and From Stand Sit to and from Stand Moderate Assistance,1 Person Assistance Transfers Transfer Ability Moderate Assistance,1 Person Assistance Technique Transfer Destination Bed,Chair Transfer Technique Stand Step Pivot Devices Transfer Assistive Devices Gait Belt,Front Wheeled Walker Comments Mobility Comments MODA to come to stand to fww, Pt unsteady of her feet and needing assist to guide FWW, assist for balance and ssafety awareness. OT- Balance Assessment Sitting Balance and Reactions Static Sitting Balance Ability Normal Dynamic Sitting Balance Ability Normal Standing Balance and Reactions Static Standing Balance Ability Fair Dynamic Standing Balance Ability Poor M8 OT- IP Objective Assessments Start: 01/07/19 12:38 Freq: Status: Active Protocol: Document 01/07/19 11:44 [facility] (Rec: 01/07/19 12:54 [id number]) OT Gross Range of Motion Upper Extremity Range of Motion Assessment Bilaterally Impaired ROM Impairments RUE shoulder felxion 0-100, LUE shoulder flexion 0-30. OT Strength Upper Extremity Strength Assessment Bilaterally Impaired Comments Strength Comments Utilization Review Nurse strength 3+/5. LUE 3-/5 and RUE 4-/5 proximally. OT- Coordination Assessment Comments Coordination Comments Arthritic changes in hands and needing assist for set-up. OT-Muscle Tone Assessment Muscle Tone WNL Yes M9 OT- IP Assessment and Plan Start: 01/07/19 12:38 Freq: Status: Active Protocol: Document 01/07/19 11:44 [facility] (Rec: 01/07/19 12:54 [email or web address]) OT Summary Assessment and Plan Potential Rehabilitation Potential Good Analytic Complexity at Evaluation Low Summary OT Impairments Pain,Range of Motion,Strength, Balance,Coordination, Functional Cognition, Functional Mobility,Grooming, Dressing,Toileting,Bathing, Toilet Transfers,Shower Transfers Progress Towards Goals Slow Progress due to Pain,Slow Progress due to Activity Tolerance Assessment Summary Pt low complexity and main barriers are steps, decreased balance,decreased functional mobility and now needing assist for ADl's. Pt would benefit from skilled rehab or home with 08/09 assist pending medical progress. Goals Grooming Goal Standby Assistance Dressing Goal Standby Assistance Toileting Goal Standby Assistance Bathing Goal Minimal Assistance Toilet Transfer Goal Standby Assistance Shower Transfer Goal Contact Guard Assistance Patient/Caregiver Education Goal Caregiver Independent Assisting Patient Days to Meet Goals 10 Frequency of Treatment Frequency Of Treatment Once a Day Treatment Plan OT Treatment Plan ADL Training,Functional Cognition Training,Functional Mobility,Patient/Family Education,Discharge Planning Other Treatment Recommendations and Next LB dressing/toileting Treatment Focus Discharge Recommendations OT Discharge Recommendations SNF Rehab Other Discharge Recommendations Possibly home with 08/09 and .
[2019-01-07] MEDS: CEFTRIAXONE 1 GM/50 ML FROZ.PIGGY IV (13:11)
[2019-01-07] MEDS: INFLUENZA VACCINE 0.5 ML SYRINGE IM (14:00)
[2019-01-07] MEDS: TETRACAINE/BENZOCAINE/BUTAMBEN (CETACAINE) BOTTLE 1 SPRAY TOP (14:00)
--- NOTE | 2019-01-07 14:17 | CM.DANOTE ---
Addendum entered by Martha Rosales LPN 01/07/19 14:48: Please disregard the below addendum: in on another patient. Addendum entered by Martha Rosales LPN 01/07/19 14:47: Was just updated by Dr. Mejia. She has facilitated a transfer to [facility] in [place] and states pt leaving momentarily. Original Note: Discharge Planning/Care Management DCP: assessment: case received, EMR reviewed and discussed case this morning with Dr. Tapia/pt's PCP. Met now in followup with pt. Introduced self and role. Pt is an 83 year old female who admitted to yesterday to care of PCP: Dr. Tapia. Payer: Medicare and [employer]erral[employer]. Admission status: INPT: confirmed by UR POLLY Avelar. Pt says that she is very happy living in her home with her son's help, their dogs and now that Earl is with us and helping so much it is very good at home. She had HH a long time ago she says but I did not care for them. I get nervous when too many people are around me and telling me what to do. I just want to be home and be happy there. Did say that Dr. Tapia would very much like to see her accept HH services and explained what RN and therapists could do, including getting her some equipment in the home that would make it more comfortable for her. At this point she is very reluctant but may be open to further discussion with Dr. Tapia and the care team members going forward. (Dr. Tapia did sign a Face/Face HH form and said that she would ideally like pt to receive RN/PT/OT/VAMPER and OCEAN LIFEGUARD. ) She is even more opposed to the idea of a short snf stay. P: DCP team to continue to follow for d/c issues and options. Suggest reaching out to KAREN Joe and perhaps Earl. Re advanced directives. Pt identifies her primary goal as being happy at home but at same time is very clear: I want everything done to keep me alive. Perhaps Dr. Tapia may want to go over a POLST form with pt and POA while she is here..... Advanced directive, confirm from FAMILY Start: 01/06/19 12:32 Freq: Q24H Status: Active Protocol: Document 01/07/19 12:32 [facility] (Rec: 01/07/19 14:04 [facility] [id number]) Advance Directive, confirm on record Time 14:03 Person contacted patient Copy received No CM Discharge Assessment Start: 01/07/19 14:09 Freq: Status: Active Protocol: Document 01/07/19 14:09 ITV (Rec: 01/07/19 14:17 ITV [id number]) Discharge Planning Assessment Advance Directives? Yes: I want everything done to keep me alive History Provided By Patient,Medical Record Has Patient been admitted in last 30 No days? Prior Living Arrangements Mobile home Household Members children Comment My son Heath lives with me. He drives and he does not work. He helps take care of me. A friend/house-mate Earl lives with us and is the caregiver. She has her own room in the house Type of transportation used prior to Relies on Others admit Is patient alert and oriented? Yes: appears to be at time of discussion. Needs Assistance With Bathing,Eating,Meal Prep, Managing Medications,Home Chores / Shopping Caregiver for Another No DME Already Rented / Owned FWW / Walker Whiteboard Updated in Patient Room with Yes name and ext. # of Broodmare Foreman Review Status In Process
--- NOTE | 2019-01-07 15:51 | DI.CT.S_ITS ---
PROCEDURE: CT CHEST WO CON INDICATIONS: pleural effusion, pneumonia TECHNIQUE: Noncontrast 5 mm thick sections acquired from the pulmonary apices to the posterior costophrenic angles. 1 mm lung window, 5 mm thick coronal and sagittal and 7 mm axial MIP reformats were then acquired. For radiation dose reduction, the following was used: automated exposure control, adjustment of mA and/or kV according to patient size. COMPARISON: None. FINDINGS: Image quality: Excellent. Lungs and pleura: Moderate left pleural effusion with adjacent atelectasis. Scattered submegmental scarring and/or atelectasis. No focal consolidation. Mediastinum: Heart size is mildly enlarged. Coronary artery calcifications are noted. No pericardial effusion. No mediastinal adenopathy by size criteria. Thoracic aorta and central pulmonary arteries are normal in size. Esophagus is normal in caliber. No hiatal hernia. Bones and chest wall: No suspicious bony lesions. No vertebral body compression fractures. No axillary or supraclavicular adenopathy by size criteria. Thyroid gland is unremarkable. Diffuse spondylosis Abdomen: Visualized upper abdominal solid organs and bowel loops appear normal in the absence of contrast. IMPRESSION: Moderate left pleural effusion with adjacent atelectasis Cardiomegaly. Coronary artery disease Dictated by: Eh Martinez M.D. on 01/07/2019 at 16:55 Approved by: Eh Martinez M.D. on 01/07/2019 at 17:00
[2019-01-07 16:07] VITALS: BP 142/82; PULSE 80; RESP 15; TEMP 36.8; O2SAT 94
[2019-01-07 16:39] VITALS: BMI 24.7
[2019-01-07] MEDS: AZITHROMYCIN 250 MG TABLET 500 MG PO (17:02)
[2019-01-07 19:41] VITALS: BP 147/69; PULSE 88; RESP 14; TEMP 36.6; O2SAT 95
[2019-01-07] MEDS: ENOXAPARIN 40 MG/0.4 ML SYRINGE SUBCUT (20:55)
[2019-01-07 23:00] VITALS: BP 141/63; PULSE 76; RESP 16; TEMP 36.3; O2SAT 91
[2019-01-08 05:00] VITALS: BP 130/72; PULSE 62; RESP 16; TEMP 36.2; O2SAT 94
[2019-01-08 05:31] LABS: Add Manual Diff / Slide Review NO; Basophils Absolute Auto 100 /uL (0-100); Eosinophils Absolute Auto 100 /uL (0-450); Eosinophils Percent Auto 1.2 % (2-4); Hematocrit 29.3 % (36-46); Hemoglobin 9.6 g/dL (12.0-16.0); Lymphocytes Absolute Auto 1900 /uL (1100-4500); Lymphocytes Percent Auto 27.6 % (25-40); Mean Corpuscular HGB Conc 32.8 % (30-36); Mean Corpuscular Hemoglobin 31.9 PG (26-34); Mean Corpuscular Volume 97.2 fL (80-100); Monocytes Absolute Auto 700 /uL (0-900); Monocytes Percent Auto 10.6 % (3-14); Neutrophils Absolute Auto 4200 /uL (1500-7000); Neutrophils Percent Auto 59.6 % (50-75); Platelet Count 294 X10^3/uL (150-400); Red Blood Cell Count 3.01 X10^6/uL (4.0-5.2); Red Cell Distribution Width 16.3 % (11.6-14.8)
[2019-01-08 05:37] LABS: BUN Creatinine Ratio 17.1 (6-22); Blood Urea Nitrogen 12 mg/dL (7-17); Calcium 8.6 mg/dL (8.4-10.2); Carbon Dioxide 32 mmol/L (22-32); Chloride 101 mmol/L (98-107); Cholesterol 124 mg/dL (140-199); Estimated Glomerular Filt Rate > 60.0 mL/min (>60); Glucose 103 mg/dL (80-110); HDL Cholesterol 33 mg/dL (40-60); HEMOLYSIS < 15 (0-50); LDL Cholesterol Calculated 68 mg/dL (<100); Potassium 3.9 mmol/L (3.4-5.1); Sodium 135 mmol/L (137-145); Triglycerides 116 mg/dL (35-150)
[2019-01-08 05:49] LABS: B Type Natriuretic Peptide 464 (<100)
[2019-01-08 07:45] VITALS: TEMP 36.6
--- NOTE | 2019-01-08 08:39 | PM.PN.1 ---
Subjective Subjective Date Patient Seen: 01/08/19 Time Patient Seen: 08:39 Interval history: Pneumonia. Seems to be status quo. Denies any shortness of breath. Minimal cough. Denies any need for respiratory therapy. Appetite has improved. She complains of aches and pains of her bones and joints. As she is stated in the past very determined to be discharged home when that eventuated. Has not had much ambulation. Exam Vital Signs (past 8 hours): - 01/08/19 05:00 01/08/19 07:45 Temperature 97.1 F L 97.9 F Pulse Rate 62 Respiratory Rate 16 Blood Pressure 130/72 Pulse Oximetry 94 Oxygen Delivery Method Room Air Oxygen Flow Rate 0 Narrative Exam Narrative: Patient is sitting in the bedside chair resting quietly trying to eat her Azerbaijani muffin. She appears in no distress whatsoever conversant no cough no shortness of breath. ENT is unremarkable other than she is edentulous. Neck is supple. Chest exam decreased breath sounds on the left right side is clear. Cardiac exam irregular rhythm about 80. Abdominal exam benign. She has +1 edema of her lower extremities. Objective Labs Result Diagrams: 01/08/19 05:16 01/08/19 05:16 Labs: Laboratory Results - last 24 hr 01/07/19 01/07/19 01/08/19 08:20 08:20 05:16 WBC 7.0 RBC 3.01 L Hgb 9.6 L Hct 29.3 L MCV 97.2 MCH 31.9 MCHC 32.8 RDW 16.3 H Plt Count 294 Neut % (Auto) 59.6 Lymph % (Auto) 27.6 [place] % (Auto) 10.6 Eos % (Auto) 1.2 L Baso % (Auto) 1.0 Neut # (Auto) 4200 Lymph # (Auto) 1900 [place] # (Auto) 700 Eos # (Auto) 100 Baso # (Auto) 100 Sodium Potassium Chloride Carbon Dioxide BUN Creatinine Estimated GFR BUN/Creatinine Ratio Glucose Calcium Iron 33 L TIBC 231 L % Saturation 14 L Transferrin 169 L Ferritin 173.0 B-Natriuretic Peptide 464 H Triglycerides Cholesterol LDL Cholesterol, Calc HDL Cholesterol Vitamin B12 181 L 01/08/19 05:16 WBC RBC Hgb Hct MCV MCH MCHC RDW Plt Count Neut % (Auto) Lymph % (Auto) [place] % (Auto) Eos % (Auto) Baso % (Auto) Neut # (Auto) Lymph # (Auto) [place] # (Auto) Eos # (Auto) Baso # (Auto) Sodium 135 L Potassium 3.9 Chloride 101 Carbon Dioxide 32 BUN 12 Creatinine 0.70 Estimated GFR > 60.0 BUN/Creatinine Ratio 17.1 Glucose 103 Calcium 8.6 Iron TIBC % Saturation Transferrin Ferritin B-Natriuretic Peptide Triglycerides 116 Cholesterol 124 L LDL Cholesterol, Calc 68 HDL Cholesterol 33 L Vitamin B12 Labs reviewed as above. Of significance she is decreased vitamin-B level, decreased iron level although his serum ferritin is normal. CT chest is reviewed and it shows a large left pleural effusion no lesions seen in the lung tissue itself. Echocardiogram is reviewed that shows significant decrease in her ejection fraction Assessment & Plan Assessment & Plan narrative: 1. Apparent community acquired pneumonia responding to IV antibiotics. 2. Recurrent left pleural effusion. Etiology likely to be either the existing pneumonia and/or congestive heart failure. Patient has no apparent symptoms referable to the pleural effusion. Does not require supplemental oxygen. O2 sats to decrease at nighttime she sleeping. Will give her small dose of metolazone 2.5 mg. Consideration has been made for thoracentesis but patient is asymptomatic referable to this. We will get out of bed and ambulate her today CLL she does she require supplemental oxygen with this may consider thoracentesis tomorrow. Patient presumably will be urinary at least 2 more days receiving IV antibiotics and therapy Diuresis forthcoming
[2019-01-08 08:53] VITALS: BP 131/73; PULSE 83; RESP 18; O2SAT 92
[2019-01-08] MEDS: PANTOPRAZOLE 40 MG TABLET PO ×2 (09:13→21:17)
[2019-01-08] MEDS: FERROUS SULFATE 325 MG TABLET PO (09:13)
[2019-01-08] MEDS: HYDROCODONE/ACET 5/325 TABLET 1 TAB PO (09:13)
[2019-01-08] MEDS: GABAPENTIN 300 MG CAPSULE PO ×3 (09:13→21:17)
[2019-01-08] MEDS: metOLazone 2.5 MG TABLET PO (09:14)
[2019-01-08] MEDS: LOSARTAN 50 MG TABLET PO ×2 (09:14→21:16)
[2019-01-08] MEDS: CYANOCOBALAMIN (VITAMIN B-12) 500 MCG TABLET 1000 MCG PO (09:14)
[2019-01-08] MEDS: METOPROLOL IR 50 MG TABLET 25 MG PO ×2 (09:15→21:16)
[2019-01-08] MEDS: SODIUM CHLORIDE 0.9% FLUSH 10 ML IV ×2 (09:18→21:19)
[2019-01-08] MEDS: TETRACAINE/BENZOCAINE/BUTAMBEN (CETACAINE) BOTTLE 1 SPRAY TOP (09:23)
--- NOTE | 2019-01-08 10:10 | OT.IP.TRT ---
Current Diagnoses Abnormal weight loss (01/06/19) Occupational Therapy Treatment Note M2 OT-IP Current Condition Start: 01/07/19 12:38 Freq: Status: Active Protocol: Document 01/07/19 11:44 [facility] (Rec: 01/07/19 12:54 [facility] [id number]) Occupational Therapy Current Condition Current Condition Evaluation Date 01/07/19 Treatment Diagnosis Pleural effusion, decreased mobility Weight Bearing Status Weight Bearing Status Weight Bear as Tolerated M3 OT- IP Subjective and Pain Start: 01/07/19 12:38 Freq: Status: Active Protocol: Document 01/08/19 10:09 [facility] (Rec: 01/08/19 10:10 [facility] [id number]) OT- Subjective Occupational Therapy Visit Type Type Patient Unavailable Notes Pt just completed shower with nursing aid and too tired to do OT treatment at this time.
[2019-01-08] MEDS: BISACODYL 10 MG SUPP PR (10:51)
[2019-01-08] MEDS: CEFTRIAXONE 1 GM/50 ML FROZ.PIGGY IV (12:17)
[2019-01-08] MEDS: SODIUM CHLORIDE 0.9% 250 ML 21 ML IV (12:41)
--- NOTE | 2019-01-08 13:04 | CM.DPC ---
DCP Cont: Met with patient in her room. Introduced self and role. Discussed home health option. Patient stated, I really don't think that I need it, I have my son, and friend, Earl, who lives with me, she is a caregiver. Discussed the benefit of home health P.T. for strengthening, but patient still feels uncomfortable with having more people in her home. Asked her how she gets around in the home prior to the illness. Patient stated that she does use a walker in the home. P: DCP to continue to follow closely and be available for any resources needed. Patient does have support at home. Have a face to face signed in case patient changes her mind. Tiffanie Morse RN/Digital Specialist
[2019-01-08 13:33] VITALS: BP 113/63; PULSE 73; RESP 18; TEMP 36.6; O2SAT 94
--- NOTE | 2019-01-08 14:04 | OT.IP.TRT ---
Current Diagnoses Abnormal weight loss (01/06/19) Occupational Therapy Treatment Note M2 OT-IP Current Condition Start: 01/07/19 12:38 Freq: Status: Active Protocol: Document 01/07/19 11:44 [facility] (Rec: 01/07/19 12:54 [facility] [id number]) Occupational Therapy Current Condition Current Condition Evaluation Date 01/07/19 Treatment Diagnosis Pleural effusion, decreased mobility Weight Bearing Status Weight Bearing Status Weight Bear as Tolerated M3 OT- IP Subjective and Pain Start: 01/07/19 12:38 Freq: Status: Active Protocol: Document 01/08/19 14:04 [facility] (Rec: 01/08/19 14:05 [facility] [id number]) OT- Subjective Occupational Therapy Visit Type Type Administrative Note Visit Start Time 14:00 Notes Attempted to see pt in PM, but she declined due to fatigue.
--- NOTE | 2019-01-08 14:14 | PT.IPTN ---
Current Diagnoses Abnormal weight loss (01/06/19) Physical Therapy Treatment Note M2 PT-IP Current Condition Start: 01/07/19 12:25 Freq: NEEDED Status: Active Protocol: Document 01/07/19 11:38 AB (Rec: 01/07/19 12:36 AB [id number]) Physical Therapy Current Condition Current Condition Evaluation Date 01/07/19 Treatment Diagnosis PNA; CHF; difficulty in walking Onset Date 01/06/19 M3 PT-IP Subjective Start: 01/07/19 12:25 Freq: NEEDED Status: Active Protocol: Document 01/08/19 14:14 LJ (Rec: 01/08/19 14:14 LJ [id number]) Subjective Physical Therapy Visit Type Type Patient Refusal M4 PT-IP Mobility and Gait Start: 01/07/19 12:25 Freq: NEEDED Status: Active Protocol: Document 01/07/19 11:38 AB (Rec: 01/07/19 12:36 AB [id number]) PT-Bed Mobility Assessment Supine to Sit Supine to Sit Contact Guard Assistance,1 Person Assistance Scooting Scooting to Edge of Bed Standby Assistance PT-Transfer Assessment Sit to and From Stand Sit to and from Stand Moderate Assistance,1 Person Assistance,Use of Upper Extremities Equipment Transfer Assistive Device Gait Belt,Front Wheeled Walker Orthotic/Prosthetic Devices or Brace: No Transfers Transfer Destination Chair Transfer Technique ambulated using FWW Transfer Ability Level of Assist Moderate Assistance,1 Person Assistance,Use of Upper Extremities Comments Mobility Comments pt completed supine to sit CGA and cues. required increase time to complete task. completed sit to stand from EOB mod A and cues and ambulated to the chair using FWW mod A but with increase stooped posture and unsteadiness towards the end of ambulation requiring max cues for upright posture and safety. Nurse came in and want to check pt's buttocks . pt completed sit to stand from the chair mod A and cues and was able to maintain standing ~ 30 sec using FWW for support CGA and cues for upright posture. pt assisted back to sit and positioned on the chair. Left pt with OT. Gait Assessment Gait Gait Assistance Required: Moderate Assistance,1 Person Assist Distance (Feet) 12 Able to Maintain Weight Bearing Status No During Gait Assistive Devices Assistive Device Gait Belt,Front Wheeled Walker Orthotic/Prosthetic Devices or Brace: No Gait Deviations General Gait Pattern Antalgic,Decreased Stride Length,Decreased Feet Clearance Factors Limiting Gait Function Factors Limiting Gait Function Decreased Activity Tolerance, Decreased Strength,Pain,Poor Balance,Poor Safety Awareness Comments Gait Comments pt presenst with stooped posture and unsteady gait with increarse B knee flexion during stance phase towards end of ambulation. PT-Balance Assessment Sitting Balance and Reactions Static Sitting Balance Ability Good Dynamic Sitting Balance Ability Fair Standing Balance and Reactions Static Standing Balance Ability Fair Dynamic Standing Balance Ability Poor Device Used FWW M5 PT-IP Objective Assessments Start: 01/07/19 12:25 Freq: NEEDED Status: Active Protocol: Document 01/07/19 11:38 AB (Rec: 01/07/19 12:36 AB [id number]) Orientation Orientation/Cognition Level of Alertness Alert Orientation Name,Situation Safety Awareness Decreased Safety Awareness Gross Range of Motion Lower Extremity ROM Assessment Within Functional Limits Strength Lower Extremity Strength Hip 3+/5 Knee 4-/5 Muscle Tone Muscle Tone WNL Yes M6 PT-IP Treatment Start: 01/07/19 12:25 Freq: NEEDED Status: Active Protocol: Document 01/07/19 11:38 AB (Rec: 01/07/19 12:36 AB [id number]) Physical Therapy Treatment Education Education Provided Safety M7 PT-IP Assessment and Plan Start: 01/07/19 12:25 Freq: NEEDED Status: Active Protocol: Document 01/07/19 11:38 AB (Rec: 01/07/19 12:36 AB [id number]) PT Summary Assessment and Plan Potential Rehabilitation Potential Good Status of Condition at Evaluation Evolving Summary Impairments Pain,ROM,Strength,Balance, Coordination,Sensation,Tone, Cognition,Bed Mobility, Transfers,Gait,Activity Tolerance Assessment Summary pt requires mod A with mobility and unable to tolerate much activity with increase stooped posture and unsteadiness towards end of ambulation. d/c plan depending on progress. will continue to assess. Goals Bed Mobility Goal Independent Transfer Goal Independent,Front Wheeled Walker Gait Goal Independent,Front Wheel Walker Gait Distance 150 Other Goals up/down 5 steps B rails SBA Days to Meet Goals 10 Frequency of Treatment Frequency Of Treatment Once a Day Treatment Plan Physical Therapy Treatment Plan Bed Mobility Training,Transfer Training,Gait Training, Therapeutic Exercise,Balance Retraining,Post Op Education, Discharge Planning,Hot or Cold Pack,Neuromuscular Re-ed, Coordination Retraining,Manual Therapy Recommendations To Nursing Amount of Assist Needed 1 Person Assist Discharge Recommendations PT Discharge Recommendations Home with 24/7 Assist,Home Health,SNF Rehab Other Discharge Recommendations depending on progress: SNF vs home with 24/7 and HHPT
[2019-01-08] MEDS: AZITHROMYCIN 250 MG TABLET 500 MG PO (17:03)
[2019-01-08 18:05] VITALS: BP 141/67; PULSE 82; RESP 18; TEMP 36.9; O2SAT 93
[2019-01-08] MEDS: ENOXAPARIN 40 MG/0.4 ML SYRINGE SUBCUT (21:17)
[2019-01-08 23:30] VITALS: BP 131/59; PULSE 83; RESP 18; TEMP 37; O2SAT 94
[2019-01-09] VITALS (7 sets, daily range): BP systolic 103–142; BP diastolic 50–72; PULSE 71–88; RESP 15–18; TEMP 36.5–37.5; O2SAT 93–95
[2019-01-09] MEDS: HYDROCODONE/ACET 5/325 TABLET 1 TAB PO ×4 (01:32→23:45)
[2019-01-09 05:41] LABS: Add Manual Diff / Slide Review NO; Basophils Absolute Auto 100 /uL (0-100); Basophils Percent Auto 1.2 % (0-2); Eosinophils Absolute Auto 0 /uL (0-450); Eosinophils Percent Auto 0.6 % (2-4); Hematocrit 29.6 % (36-46); Hemoglobin 9.8 g/dL (12.0-16.0); Lymphocytes Absolute Auto 2200 /uL (1100-4500); Lymphocytes Percent Auto 25.7 % (25-40); Mean Corpuscular HGB Conc 33.2 % (30-36); Mean Corpuscular Volume 96.2 fL (80-100); Monocytes Absolute Auto 900 /uL (0-900); Monocytes Percent Auto 10.2 % (3-14); Neutrophils Absolute Auto 5300 /uL (1500-7000); Neutrophils Percent Auto 62.3 % (50-75); Platelet Count 295 X10^3/uL (150-400); Red Blood Cell Count 3.08 X10^6/uL (4.0-5.2); Red Cell Distribution Width 16.3 % (11.6-14.8); White Blood Cell Count 8.5 X10^3/uL (4.5-11.0)
[2019-01-09 05:50] LABS: BUN Creatinine Ratio 23.8 (6-22); Blood Urea Nitrogen 19 mg/dL (7-17); Calcium 8.6 mg/dL (8.4-10.2); Carbon Dioxide 34 mmol/L (22-32); Chloride 97 mmol/L (98-107); Estimated Glomerular Filt Rate > 60.0 mL/min (>60); Glucose 112 mg/dL (80-110); HEMOLYSIS < 15 (0-50); Potassium 4.3 mmol/L (3.4-5.1); Sodium 134 mmol/L (137-145)
[2019-01-09] MEDS: FERROUS SULFATE 325 MG TABLET PO (08:21)
[2019-01-09] MEDS: GABAPENTIN 300 MG CAPSULE PO ×3 (08:22→19:18)
[2019-01-09] MEDS: CYANOCOBALAMIN (VITAMIN B-12) 500 MCG TABLET 1000 MCG PO (08:22)
[2019-01-09] MEDS: METOPROLOL IR 50 MG TABLET 25 MG PO ×2 (08:22→19:18)
[2019-01-09] MEDS: PANTOPRAZOLE 40 MG TABLET PO ×2 (08:22→19:18)
[2019-01-09] MEDS: LOSARTAN 50 MG TABLET PO ×2 (08:23→19:18)
[2019-01-09] MEDS: metOLazone 2.5 MG TABLET PO (08:24)
[2019-01-09] MEDS: SODIUM CHLORIDE 0.9% FLUSH 10 ML IV ×2 (08:24→19:28)
--- NOTE | 2019-01-09 10:58 | DI.RAD.S_ITS ---
PROCEDURE: XR CHEST 2V INDICATIONS: Pleural effusion TECHNIQUE: 2 views of the chest were acquired. COMPARISON: [facility], CT, CT CHEST WO CON, 01/07/2019, 16:16. [facility], CR, XR CHEST 1V, 01/06/2019, 14:14. FINDINGS: Surgical changes and devices: Sternal wires consistent previous bypass procedure are noted. Left PICC line is present with distal tip projecting over the SVC. Lungs and pleura: Minimal to mild left effusion, slightly more prominent when compared to prior exam. Mild pulmonary vascularity is present. Mediastinum: Mediastinal contours are normal. Heart size is normal. Bones and chest wall: No suspicious bony abnormalities. Soft tissues appear unremarkable. IMPRESSION: Left pleural effusion with overall appearance of edema. Areas of underlying atelectasis and/or pneumonia cannot be excluded. Dictated by: Rosemarie Meehan M.D. on 01/09/2019 at 11:38 Approved by: Rosemarie Meehan M.D. on 01/09/2019 at 11:39
--- NOTE | 2019-01-09 11:00 | P.PN_ITS ---
Subjective Subjective Date Patient Seen: 01/09/19 Time Patient Seen: 11:00 Interval history: Pneumonia. Patient basically status quo. She did apparently have an episode of choking last night when she choked on her food. No symptoms now. She denies shortness of breath. She denies cough. She denies chest pain. She still has problem constipation however. And she has not been ambulatory out of her room Exam Vital Signs (past 8 hours): - 01/09/19 08:18 01/09/19 08:23 01/09/19 08:54 Temperature 97.7 F Pulse Rate 80 80 88 Respiratory Rate 15 16 Blood Pressure 114/64 114/64 114/64 Pulse Oximetry 94 93 Oxygen Delivery Method Room Air Oxygen Flow Rate 0 Narrative Exam Narrative: Patient initially is sleeping in her hospital bed. She is easily awakened. She appears in no distress. Chest exam decreased breath sounds on the left does not really take a deep jazmine ath. Cardiac exam regular rhythm no murmur gallop. Abdominal exam nontender no masses. Extremities show no edema Objective Labs Result Diagrams: 01/09/19 05:30 01/09/19 05:30 Labs: Laboratory Results - last 24 hr 01/09/19 01/09/19 05:30 05:30 WBC 8.5 RBC 3.08 L Hgb 9.8 L Hct 29.6 L MCV 96.2 MCH 32.0 MCHC 33.2 RDW 16.3 H Plt Count 295 Neut % (Auto) 62.3 Lymph % (Auto) 25.7 [place] % (Auto) 10.2 Eos % (Auto) 0.6 L Baso % (Auto) 1.2 Neut # (Auto) 5300 Lymph # (Auto) 2200 [place] # (Auto) 900 Eos # (Auto) 0 Baso # (Auto) 100 Sodium 134 L Potassium 4.3 Chloride 97 L Carbon Dioxide 34 H BUN 19 H Creatinine 0.80 Estimated GFR > 60.0 BUN/Creatinine Ratio 23.8 H Glucose 112 H Calcium 8.6 Labs from today is reviewed Assessment & Plan Assessment & Plan narrative: 1. Apparent community acquired pneumonia stable. Patient not requiring supplemental oxygen. Does not appear to have any symptoms referral to her pleural effusion. 2. Presumed associated congestive heart failure. Patient was given a small dose some diuretic unclear exactly how much urine output. Presumably she had some as her increased BUN. 3. Needs more physical therapy more activity prior to being discharged home. Anticipate this occurring tomorrow upon Dr. smart home to return
[2019-01-09] MEDS: BISACODYL 10 MG SUPP PR (11:25)
[2019-01-09] MEDS: CEFTRIAXONE 1 GM/50 ML FROZ.PIGGY IV (11:46)
--- NOTE | 2019-01-09 12:27 | PC.NURSE ---
Addendum entered by Brant Muir R.N. 01/09/19 14:29: Large BM 01/09 approx. 1400, incontinent. Patient reports relief of abdominal pain. PICC line dressing changed without incident. Care is ongoing. Original Note: Patient alert and oriented this shift. Dressing to sacrum changed. Patient incontinent of urine. PRN suppository administered, no BM as of this time. Bowel tones present, discussed with MD. Care is ongoing.
--- NOTE | 2019-01-09 15:24 | PT-IP ANOTE ---
Pt refused stating she was too tired and had already done a lot today. Will check back with pt in AM.
--- NOTE | 2019-01-09 15:24 | CM.DPC ---
DCP Cont: Attempted to meet with patient today, sleeping. Attempted to reach son, Heath. Phone not ringing. Patient making some progress with P.t, but weak. Attempted to discuss with her going to [facility] a short amount of time before going home, which patient has been reluctant to do. Patient will need increased assistance with ADLS, toileting. Went ahead and sent referral to [facility] for now, and left a message with Janette in admissions. Dr. Tapia should be here tomorrow to see patient. Spoke to heavenly in P.T. Patient has been refusing P.T, and O.T. due to fatigue. Did walk 12 feet for Mouna. Patient in her room in her chair sleeping at this time. P: DCP will continue to follow closely. Follow up with Janette at [facility], and Dr. Taipa. Dr. Tapia may be able to discuss [facility] with patient. Tiffanie Morse, RN/Massage Therapy Instructor
[2019-01-09] MEDS: AZITHROMYCIN 250 MG TABLET 500 MG PO (17:02)
[2019-01-09] MEDS: ENOXAPARIN 40 MG/0.4 ML SYRINGE SUBCUT (19:18)
[2019-01-10] MEDS: ONDANSETRON 4 MG/2 ML INJ IV ×3 (00:29→13:59)
[2019-01-10] MEDS: SODIUM CHLORIDE 0.9% FLUSH 10 ML IV ×3 (00:30→20:42)
--- NOTE | 2019-01-10 01:44 | PC.NURSE ---
Patient is having emesis of chunks of noodles. May benefit from pureed diet.
[2019-01-10 05:50] LABS: BUN Creatinine Ratio 38.3 (6-22); Blood Urea Nitrogen 23 mg/dL (7-17); Calcium 8.7 mg/dL (8.4-10.2); Carbon Dioxide 34 mmol/L (22-32); Chloride 92 mmol/L (98-107); Estimated Glomerular Filt Rate > 60.0 mL/min (>60); Glucose 156 mg/dL (80-110); HEMOLYSIS < 15 (0-50); Potassium 4.4 mmol/L (3.4-5.1); Sodium 131 mmol/L (137-145)
[2019-01-10 05:59] LABS: Add Manual Diff / Slide Review NO; Basophils Absolute Auto 100 /uL (0-100); Eosinophils Absolute Auto 0 /uL (0-450); Eosinophils Percent Auto 0.1 % (2-4); Hematocrit 29.9 % (36-46); Hemoglobin 9.9 g/dL (12.0-16.0); Lymphocytes Absolute Auto 1100 /uL (1100-4500); Mean Corpuscular Hemoglobin 31.8 PG (26-34); Mean Corpuscular Volume 96.3 fL (80-100); Monocytes Absolute Auto 500 /uL (0-900); Monocytes Percent Auto 5.8 % (3-14); Neutrophils Absolute Auto 7600 /uL (1500-7000); Neutrophils Percent Auto 81.1 % (50-75); Platelet Count 343 X10^3/uL (150-400); Red Cell Distribution Width 16.2 % (11.6-14.8); White Blood Cell Count 9.4 X10^3/uL (4.5-11.0)
--- NOTE | 2019-01-10 05:59 | DI.RAD.S_ITS ---
PROCEDURE: XR CHEST 2V INDICATIONS: Pleural effusion TECHNIQUE: 2 views of the chest were acquired. COMPARISON: [facility], , XR CHEST 2V, 01/09/2019, 11:03. FINDINGS: Surgical changes and devices: Status post CABG procedure. Lungs and pleura: Left-sided pleural effusion slightly increased in size compared to 12/18/18. Cephalization of pulmonary vasculature interstitial prominence has diminished compared to the prior examination without complete resolution. Mediastinum: Mediastinal contours are normal. Heart size is normal. Bones and chest wall: No suspicious bony abnormalities. Soft tissues appear unremarkable. IMPRESSION: Small left-sided pleural effusion slightly increased in size. Diminished pulmonary edema. Dictated by: Kristel Salinas MD, PhD on 01/10/2019 at 9:46 Approved by: Kristel Salinas MD, PhD on 01/10/2019 at 9:47
--- NOTE | 2019-01-10 06:39 | PC.NURSE ---
Patient went to for CXR via wheelchair at 0540. Returned 0610, still nauseous. Zofran given. Patient throwing up undigested food. Told me what she ate for dinner, and it is undigested.
[2019-01-10 08:05] VITALS: BP 137/65; PULSE 76; RESP 16; TEMP 36.3; O2SAT 95
--- NOTE | 2019-01-10 08:23 | CM.DPC ---
Addendum entered by JOSHUA Bowie 01/10/19 14:23: ADD: Per ST, pt declined two attempts at swallow eval and also declined PT/OT as she has not been feeling well. ST left msg for son Heath to get baseline swallow/food intake information and ST will attempt working with pt again tomorrow 01/11/19. PT plans to call merle Joe and set up time for CG training tomorrow as well. SW inquired with RN regarding pt not participating in ST/PT/OT and inquired if pt seemed to be heading in a [facility] direction and RN felt that pt primarily feels ill and nauseous and not that she is wanting comfort care rather than tx at this time. SW to follow for possible Goals of Care discussion with MD if pt continues to decline in health and refusing therapies/treatment but currently likely due to pt not feeling well. BF Original Note: DCP Cont: Per RN, pt seems to be having some difficulty with digesting food and swallowing her meals. Per PT, pt declined PT yesterday afternoon and currently therapy is recommending home with 24/7 care and HH vs SNF. SW called pt's son/DPBRISA Joe ([phone]) and discussed current recommendation of 24/7 with HH vs SNF and son states he has been bedside to see the pt but unable to come in yesterday but feels that he and their package delivery driver Earl can manage the pt at home. Son states that they have pt's room and bathroom all set up to easily accommodate her and son does not feel HH needed at this time and they they can care for pt's needs at home. Son states that DCP can call his cell phone when pt is ready for d/c and they can provide transport home for her if he is not bedside already. Per MD, pt now vomiting and not stable for d/c yet today and DCP updated MD on the above information. MD agreeable with ST eval and recommendations for the pt and DCP placed ST Consult order. Plan: DCP to follow closely for ST eval and recommendations and confirmation that pt will be somewhat safe to d/c home with son and package delivery driver and currently declining HH or SNF. PASRR and F2F signed in anticipation of need for higher level of care. JOSHUA Bowie
--- NOTE | 2019-01-10 08:48 | PM.PN.1 ---
Subjective Subjective Date Patient Seen: 01/10/19 Time Patient Seen: 08:48 Interval history: Patient is lying on her left side in bed complaining of nausea. Then has moderate amount of yellow emesis. Tells me that she had vomited last night as well everything that she had eaten prior. It ascencio her esophagus. She is also complaining of right sided like pain. She feels like her breathing is better. She is feeling very weak and does not feel like she could manage at home. Exam Vital Signs (past 8 hours): - 01/10/19 08:05 Temperature 97.4 F L Pulse Rate 76 Respiratory Rate 16 Blood Pressure 137/65 Pulse Oximetry 95 Oxygen Delivery Method Room Air Oxygen Flow Rate 0 Narrative Exam Narrative: General: Well-developed, pale, thin, female, moderate distress. Heart: irRegular rate and rhythm Lungs: mostly Clear to auscultation bilaterally, no rales or rhonchi Chest: some tenderness to palpation to the underside of the left sided lower ribs Abd: soft, not particularly tender, nursing report diffuse tenderness after emesis Extremities: Warm and well perfused, no edema, SCDs are off for a break Objective Labs Result Diagrams: 01/10/19 05:25 01/10/19 05:25 Labs: Laboratory Results - last 24 hr 01/10/19 01/10/19 05:25 05:25 WBC 9.4 RBC 3.10 L Hgb 9.9 L Hct 29.9 L MCV 96.3 MCH 31.8 MCHC 33.0 RDW 16.2 H Plt Count 343 Neut % (Auto) 81.1 H Lymph % (Auto) 12.0 L [place] % (Auto) 5.8 Eos % (Auto) 0.1 L Baso % (Auto) 1.0 Neut # (Auto) 7600 H Lymph # (Auto) 1100 [place] # (Auto) 500 Eos # (Auto) 0 Baso # (Auto) 100 Sodium 131 L Potassium 4.4 Chloride 92 L Carbon Dioxide 34 H BUN 23 H Creatinine 0.60 Estimated GFR > 60.0 BUN/Creatinine Ratio 38.3 H Glucose 156 H Calcium 8.7 Assessment & Plan Assessment & Plan narrative: Community acquired pneumonia, failed outpatient treatment with pleural effusion. Improving. - ceftriaxone and oral azithromycin. Today would be day number 5. I think her pneumonia has improved and would stop antibiotics after today. - chest xray this morning pending, will discuss her series of images with radiology Pleural effusion on 01/01/2019 chest xray. No overt signs of heart failure on physical exam however new effusion and increased right heart strain. - BNP was elevated with improvement last week, will repeat today - echo showing 35-40% LVEF with moderate global hypokinesis, severe inferior and inferoposterior which is unchanged. Biatrial enlargement progressed from prior study - consider thoracentesis to evaluate effusion if no change on CXR this morning Failure to thrive. - 15 pound weight loss in the last 2 months. 81 pound weight loss since 04/2017 - dietary consult GI: Vomiting and constipation - had large stool yesterday, continue with medications - has had problems with reflux, nausea and vomiting in the past which improved with BID PPI and sucralfate - continue with zofran - consider CT abdomnen History of afib, protein C and S deficiency, history of arterial thrombus, CVA - warfarin management has been difficult. Son will not let her have blood draw if finger stick is not available at lab, has stopped going to [facility] in [place]. Will not continue on warfarin. Will discuss an alternative with son tomorrow. Chronic pain from osteoarthritis: - continue gabapentin (will increase dose) and hydrocodone Atrial fibrillation, hypertension, hyperlipidemia. - continue home medications. - crush atorvastatin in carrier Code status: full code DVT prophylaxis: lovenox Patient has improved respiratory status however now has significant vomiting and weakness. Will need additional 24-48 hours to determine source and support patient.
[2019-01-10] MEDS: PROMETHAZINE 12.5 MG SUPP PR (09:30)
[2019-01-10 11:36] LABS: B Type Natriuretic Peptide 122 (<100)
--- NOTE | 2019-01-10 11:45 | SLP.IPNOTE ---
Orders for swallow evaluation received. Spoke with nursing who reports patient is newly edentulous and pocketing on left side during meals (likely residual from CVA in 2018). She has also had multiple episodes of emesis (poorly masticated food bits) during this hospital stay and significant weight loss over the last few months. Attempted to evaluate patient's swallowing, but she refused stating she wants to rest today and does not want to eat. She reports she eats soups at home without difficulty. GI imaging from 2018 showed diverticulosis without diverticulitis, small hiatal hernia, mild GERD. Recommend diet change to puree textures with frequent verbal cues for pocketing. ST to re-attempt swallow evaluation this afternoon.
[2019-01-10] MEDS: CEFTRIAXONE 1 GM/50 ML FROZ.PIGGY IV (11:54)
[2019-01-10] MEDS: SODIUM CHLORIDE 0.9% 250 ML 21 ML IV (11:55)
--- NOTE | 2019-01-10 12:19 | PT-IP ANOTE ---
pt not doing well this morning per RN, please check back with pt this afternoon.
--- NOTE | 2019-01-10 12:30 | OT.IP.TRT ---
Current Diagnoses Abnormal weight loss (01/06/19) Occupational Therapy Treatment Note M2 OT-IP Current Condition Start: 01/07/19 12:38 Freq: Status: Active Protocol: Document 01/07/19 11:44 [facility] (Rec: 01/07/19 12:54 [facility] [id number]) Occupational Therapy Current Condition Current Condition Evaluation Date 01/07/19 Treatment Diagnosis Pleural effusion, decreased mobility Weight Bearing Status Weight Bearing Status Weight Bear as Tolerated M3 OT- IP Subjective and Pain Start: 01/07/19 12:38 Freq: Status: Active Protocol: Document 01/10/19 12:30 [facility] (Rec: 01/10/19 13:55 [facility] [id number]) OT- Subjective Occupational Therapy Visit Type Type Administrative Note Visit Start Time 12:30 Notes Attempted to see pt x2 today in AM and PM. Per discussion with RN, pt on hold today due to nausea with emesis. Pt given new anti nausea med and requesting just to sleep. Will attempt again in AM as medical status permits.
[2019-01-10 12:35] LABS: Adenovirus F 40/41 Not Detected (Not Detect); Astrovirus Not Detected (Not Detect); Campylobacter Not Detected (Not Detect); Clostridium difficile toxin AB Not Detected (Not Detect); Cryptosporidium Not Detected (Not Detect); Cyclospora cayetanensis Not Detected (Not Detect); Entamoeba histolytica Not Detected (Not Detect); Enteroaggregative E.coli Not Detected (Not Detect); Enteropathogenic E.coli Not Detected (Not Detect); Enterotoxigenic E.coli It/st Not Detected (Not Detect); Giardia lamblia Not Detected (Not Detect); Norovirus GI/GII Not Detected (Not Detect); Plesiomonsa shigelloides Not Detected (Not Detect); Rotavirus A Not Detected (Not Detect); Salmonella Not Detected (Not Detect); Sapovirus Not Detected (Not Detect); Shiga-like toxin-prod E.coli Not Detected (Not Detect); Shigella/Enteroinvasive E.coli Not Detected (Not Detect); Vibrio Not Detected (Not Detect); Vibrio cholerae Not Detected (Not Detect); Yersinia enterocolitica Not Detected (Not Detect)
--- NOTE | 2019-01-10 13:18 | PT-IP ANOTE ---
RN stated pt is not feeling well and has been sleeping most of the day. Will check back with pt in the morning.
--- NOTE | 2019-01-10 13:41 | SLP.IPNOTE ---
Second refusal for swallow evaluation. Left message with patient's son, Heath around noon today to obtain more information related to patient's baseline swallow function. Have not heard back from him yet. ST to attempt to see patient again tomorrow.
--- NOTE | 2019-01-10 13:42 | PC.NURSE ---
Day Shift Patient alert and oriented. Patient experiencing nausea with associated vomiting and retching, as well as loose stool. Stool sample collected and sent to lab for PCR, guiac negative. Patient refuses oral medications due to nausea, DO aware. New orders anticipated, VSS, will continue to monitor.
[2019-01-10] MEDS: SODIUM CHLORIDE 0.9% 1,000 ML 150 ML IV (13:57)
[2019-01-10] MEDS: MORPHINE 2 MG/ML INJ IV ×2 (13:59→18:03)
[2019-01-10] MEDS: GABAPENTIN 300 MG CAPSULE PO ×2 (14:09→20:42)
[2019-01-10 15:25] VITALS: BP 148/59; PULSE 94; RESP 18; TEMP 36.4; O2SAT 96
--- NOTE | 2019-01-10 16:08 | PT-IP ANOTE ---
Called pts son Heath ([phone]) at [phone] to discuss CG training but line was busy. Will attempt to call him again in the morning.
--- NOTE | 2019-01-10 17:22 | PC.NURSE ---
Evening note: Chana sleeping from 1500 until now, when I woke her up to see if she would want to eat meal. She agreed to sip on her ensure, able to keep it down. Reports LLE and abdomen pain 8 on pain scale, morphine not due next til after 1800. Dr Tapia in to see patient, pt telling her that her fani-area ascencio when she urinates. Dr thinks that patient has diarrhea stool in & around fani-area, OPERATIVE SUPERVISOR x 2 in room to give patient fani care & partial bed bath per Dr's order. Incontinent of urine. During movement patient had some dry heaves. I asked Dr Tapia if she still wanted me to give patient her scheduled PO antibiotic, verbal order given for one last dose but to convert it to IV due to patient's nausea/vomiting today. New order entered for one time dose, PO antibiotic DC'd.
[2019-01-10] MEDS: AZITHROMYCIN 500 MG in DEXTROSE 5% IN WATER 250 ML IV (18:02)
[2019-01-10 20:40] VITALS: BP 129/76; PULSE 83
[2019-01-10] MEDS: LOSARTAN 50 MG TABLET PO (20:40)
[2019-01-10] MEDS: ENOXAPARIN 40 MG/0.4 ML SYRINGE SUBCUT (20:40)
[2019-01-10] MEDS: METOPROLOL IR 50 MG TABLET 25 MG PO (20:42)
[2019-01-10] MEDS: PANTOPRAZOLE 40 MG TABLET PO (20:42)
[2019-01-10 23:20] VITALS: BP 135/59; PULSE 71; RESP 16; TEMP 36.4; O2SAT 97
[2019-01-11 06:02] LABS: Add Manual Diff / Slide Review NO; Basophils Absolute Auto 100 /uL (0-100); Basophils Percent Auto 0.8 % (0-2); Eosinophils Absolute Auto 100 /uL (0-450); Eosinophils Percent Auto 0.7 % (2-4); Hematocrit 27.8 % (36-46); Hemoglobin 9.2 g/dL (12.0-16.0); Lymphocytes Absolute Auto 2200 /uL (1100-4500); Lymphocytes Percent Auto 21.8 % (25-40); Mean Corpuscular HGB Conc 33.3 % (30-36); Mean Corpuscular Hemoglobin 31.9 PG (26-34); Mean Corpuscular Volume 95.9 fL (80-100); Monocytes Absolute Auto 800 /uL (0-900); Monocytes Percent Auto 7.7 % (3-14); Neutrophils Absolute Auto 6900 /uL (1500-7000); Platelet Count 322 X10^3/uL (150-400); Red Cell Distribution Width 15.8 % (11.6-14.8); White Blood Cell Count 9.9 X10^3/uL (4.5-11.0)
[2019-01-11 06:08] LABS: BUN Creatinine Ratio 27.1 (6-22); Blood Urea Nitrogen 19 mg/dL (7-17); Calcium 8.7 mg/dL (8.4-10.2); Carbon Dioxide 37 mmol/L (22-32); Chloride 93 mmol/L (98-107); Estimated Glomerular Filt Rate > 60.0 mL/min (>60); Glucose 103 mg/dL (80-110); HEMOLYSIS < 15 (0-50); Potassium 3.9 mmol/L (3.4-5.1); Sodium 133 mmol/L (137-145)
[2019-01-11 08:00] VITALS: BP 142/64; PULSE 64; RESP 16; TEMP 36.6; O2SAT 97
--- NOTE | 2019-01-11 08:13 | PM.PN.1 ---
Subjective Subjective Date Patient Seen: 01/11/19 Time Patient Seen: 07:31 Interval history: Patient complains of a headache this morning over the entire top of her head. She also states she continues to have episodes of emesis, even with water. Abdominal pain continues but is no different than yesterday. Pain is diffuse across her lower abdomen. She was having some loose stools yesterday but has not a stool today. Denies difficulty breathing, chest pain fevers. Exam Vital Signs (past 8 hours): Oxygen Delivery Method Room Air Oxygen Flow Rate 0 Narrative Exam Narrative: General: Ill-appearing older woman resting in bed. Answers questions appropriately though appears quite fatigued. HEENT: NCAT, EOMI, moist oral mucosa CV: Regular rate and rhythm Lungs: CTAB, no wheezes, rales, or rhonchi Abdomen: Bowel tones active x4 quadrants. Tender to palpation over lower abdomen without guarding. No hepatosplenomegaly. Extremities: Warm, no edema, 2+ pedal pulses bilaterally Objective Labs Result Diagrams: 01/11/19 05:50 01/11/19 05:50 Labs: Laboratory Results - last 24 hr 01/10/19 01/10/19 01/11/19 05:25 10:28 05:50 WBC 9.9 RBC 2.90 L Hgb 9.2 L Hct 27.8 L MCV 95.9 MCH 31.9 MCHC 33.3 RDW 15.8 H Plt Count 322 Neut % (Auto) 69.0 Lymph % (Auto) 21.8 L [place] % (Auto) 7.7 Eos % (Auto) 0.7 L Baso % (Auto) 0.8 Neut # (Auto) 6900 Lymph # (Auto) 2200 [place] # (Auto) 800 Eos # (Auto) 100 Baso # (Auto) 100 Sodium Potassium Chloride Carbon Dioxide BUN Creatinine Estimated GFR BUN/Creatinine Ratio Glucose Calcium B-Natriuretic Peptide 122 H Stl C. cayetanensis PCR Not detected Stool Rotavirus (PCR) Not detected Stool Adenovirus (PCR) Not detected Stool Astrovirus (PCR) Not detected Stool Cryptosporidium PCR Not detected Stl E.coli Shiga Tox PCR Not detected St Sh/Enteroin Ecoli PCR Not detected Stool E coli O157 PCR Not Reportable Stl Enterotoxigenic E PCR Not detected Stool EPEC (PCR) Not detected Stl E. histolytica PCR Not detected Stool Giardia Lamblia PCR Not detected Stool Sapovirus (PCR) Not detected Stl P. shigelloides PCR Not detected St Y.enterocolitica PCR Not detected Stool Vibrio (PCR) Not detected Stl Vibrio cholerae PCR Not detected Stl Enteroaggr Ecoli PCR Not detected Stl Norovirus GI/GII PCR Not detected Campylobacter (PCR) Not detected C. difficile Tox (PCR) Not detected Salmonella (PCR) Not detected 01/11/19 05:50 WBC RBC Hgb Hct MCV MCH MCHC RDW Plt Count Neut % (Auto) Lymph % (Auto) [place] % (Auto) Eos % (Auto) Baso % (Auto) Neut # (Auto) Lymph # (Auto) [place] # (Auto) Eos # (Auto) Baso # (Auto) Sodium 133 L Potassium 3.9 Chloride 93 L Carbon Dioxide 37 H BUN 19 H Creatinine 0.70 Estimated GFR > 60.0 BUN/Creatinine Ratio 27.1 H Glucose 103 Calcium 8.7 B-Natriuretic Peptide Stl C. cayetanensis PCR Stool Rotavirus (PCR) Stool Adenovirus (PCR) Stool Astrovirus (PCR) Stool Cryptosporidium PCR Stl E.coli Shiga Tox PCR St Sh/Enteroin Ecoli PCR Stool E coli O157 PCR Stl Enterotoxigenic E PCR Stool EPEC (PCR) Stl E. histolytica PCR Stool Giardia Lamblia PCR Stool Sapovirus (PCR) Stl P. shigelloides PCR St Y.enterocolitica PCR Stool Vibrio (PCR) Stl Vibrio cholerae PCR Stl Enteroaggr Ecoli PCR Stl Norovirus GI/GII PCR Campylobacter (PCR) C. difficile Tox (PCR) Salmonella (PCR) Assessment & Plan Assessment & Plan narrative: Community acquired pneumonia, failed outpatient treatment with pleural effusion - Completed full course of antibiotics CHF exacerbation - Improvement in pulmonary edema on chest x-ray yesterday, patient remains on room air, appears euvolemic - Echo showing 35-40% LVEF with moderate global hypokinesis, severe inferior and inferoposterior which is unchanged. Biatrial enlargement progressed from prior study Failure to thrive - 15 pound weight loss in the last 2 months. 81 pound weight loss since 04/2017 - Dietary consult - Appreciate consultation with speech therapy regarding her swallow Vomiting and diarrhea - Negative stool panel, possibly secondary to antibiotics which have been discontinued - Given continued abdominal pain, will order a CT of the abdomen and pelvis today - Continue Zofran as needed History of afib, protein C and S deficiency, history of arterial thrombus, CVA - Currently on prophylactic Lovenox, I will defer a long-term plan to Dr. Tapia Chronic pain from osteoarthritis: - Continue gabapentin and hydrocodone Atrial fibrillation, hypertension, hyperlipidemia. - Continue home medications Code status: Full code DVT prophylaxis: Lovenox Disposition: Patient continues to require inpatient care for control of nausea vomiting, CT scan today for further evaluation, failure to thrive and general deconditioning. She has been unable to participate with therapies yet because she feels so poorly.
--- NOTE | 2019-01-11 08:21 | PC.NURSE ---
Addendum entered by Oanh Blount R.N. 01/11/19 16:14: 1500 Patient was dry heaving, had 50 ml of clear liquid emesis after consuming 350 ml of water. Patient still refusing promethazine. Patient is calm, denies chest pain, shortness of breath or dizziness. Would like to stay in chair and take her next zofran when it is available instead of the promethazine. Call light in reach, denies further needs at this time. Addendum entered by Oanh Blount R.N. 01/11/19 14:21: Patient up to chair with physical therapy. Patient tolerated well. Patient taking sips of water, patient requests pain medication for abdominal pain. Dresser given, patient c/o nausea, patient refuses promethazine at this time. Would prefer to wait until she is back to bed. Offered melinda kayleigh and TUMs for abdominal discomfort and intermittent belching. Patient refused both. Addendum entered by Oanh Blount R.N. 01/11/19 13:22: Patient's son is bedside. Patient refuses lunch at this time. Patient is resting, breathing is unlabored, patient denies shortness of breath, chest pain or dizziness. Says she no longer feels nauseated after the Zofran. Patient is drinking water when prompted, up to bedside commode with 1 person assist. Physical therapy and Occupational Therapy in to work with patient at this time. Addendum entered by Onah Blount R.N. 01/11/19 09:15: Patient resting in bed drinking contrast for CT scan. Patient is A/Ox3. Physician request abdominal CT be completed before swallow study so patient is back on unit until the CT scan, swallow study cannot be preformed until tomorrow (01/12). Patients breathing is unlabored and patient is tolerating the contrast. Denies n/v, does c/o abdominal pain. Patient's breathing is unlabored and of normal depth. Patient denies shortness of breath. PICC dsg is CDI. SCD's are on. Patient denies further needs at this time. Original Note: Patient transferred via speech chair for procedure. Patient up at bedside, ambulated to chair with walker. Denied pain, breathing was unlabored with activity. Tolerated well.
--- NOTE | 2019-01-11 08:45 | SLP.IPNOTE ---
Received orders for MBS, scheduled for 8:30 this morning. Patient and CERTIFIED HYPERBARIC TECHNICIAN met in Radiology when notified that the pt was also scheduled for a abdominal CT scan this morning. MBS was rescheduled to tomorrow, 01/12, at 13:00 so as not to interfere with CT scan.
[2019-01-11] MEDS: METOPROLOL IR 50 MG TABLET 25 MG PO ×2 (09:39→21:30)
[2019-01-11] MEDS: PANTOPRAZOLE 40 MG TABLET PO ×2 (09:39→21:19)
[2019-01-11 09:40] VITALS: BP 142/64; PULSE 64
[2019-01-11] MEDS: GABAPENTIN 300 MG CAPSULE PO ×3 (09:40→21:16)
[2019-01-11] MEDS: LOSARTAN 50 MG TABLET PO ×2 (09:40→21:17)
[2019-01-11] MEDS: CYANOCOBALAMIN (VITAMIN B-12) 500 MCG TABLET 1000 MCG PO (09:42)
[2019-01-11] MEDS: SODIUM CHLORIDE 0.9% FLUSH 10 ML IV ×2 (09:46→21:28)
--- NOTE | 2019-01-11 09:52 | DI.CT.S_ITS ---
PROCEDURE: CT ABDOMEN PELVIS W CON INDICATIONS: abdominal pain, vomiting, diarrhea TECHNIQUE: After the administration of oral and intravenous contrast, 5 mm thick sections acquired from the diaphragms to the symphysis. 5 mm thick coronal and sagittal reformats were performed. For radiation dose reduction, the following was used: automated exposure control, adjustment of mA and/or kV according to patient size. COMPARISON: [facility], CT, CT ABDOMEN PELVIS W CON, 10/27/2017, 12:19. FINDINGS: Image quality: Excellent. ABDOMEN: Lung bases: A moderate-sized left pleural effusion. Mild cardiomegaly with partially imaged median sternotomy changes.. Solid organs: Liver is normal in size and enhancement. Gallbladder is surgically absent. Biliary system is non-dilated. Pancreas is atrophic, but enhances normally. There is a 2.4 cm ill-defined focal hypodensity in the subcapsular medial aspect of the spleen, new since the prior study. No adrenal nodules. Kidneys are normal in size and enhancement, without hydronephrosis. 2.1 cm cyst arising from the upper medial pole of the right kidney. Peritoneum and bowel: The stomach is mildly distended and contains an air-fluid level. Small bowel loops are normal caliber. Occasional air-fluid levels are present. In the low pelvis, there are a few central loops of small bowel demonstrating circumferential wall thickening and luminal narrowing with mild adjacent inflammatory changes. The colon contains liquid stool with air fluid levels. Distal colon demonstrates occasional diverticulosis, small amount of semisolid stool, and no obstruction. Stomach, small bowel, and colon loops are normal in caliber and wall thickness. No free fluid or air. Nodes and vessels: No retroperitoneal or mesenteric adenopathy. Aorta and inferior vena cava are normal in caliber. Miscellaneous: No ventral hernias. PELVIS: Genitourinary: Bladder wall thickness is normal. Uterus and ovaries are surgically absent. Miscellaneous: No inguinal hernias or adenopathy. Bones: No suspicious bony lesions. No vertebral body compression fractures. Degenerative changes in the discs, endplates, and hips. IMPRESSION: 1. Pelvic small bowel loops demonstrating signs of inflammation suggesting enteritis with a differential diagnosis including inflammatory bowel disease, less likely allergy, hemorrhage, or ischemia. 2. No evidence of bowel obstruction. 3. Focal hypodensity in the medial spleen may be normal variant heterogeneous perfusion, or potentially an early splenic infarct. Correlate with left upper quadrant pain. 4. Post cholecystectomy and hysterectomy. Dictated by: Emi Leon M.D. on 01/11/2019 at 10:37 Approved by: Emi Leon M.D. on 01/11/2019 at 10:48
[2019-01-11] MEDS: FERROUS SULFATE 325 MG TABLET PO (09:55)
--- NOTE | 2019-01-11 11:14 | CM.DPC ---
Per conversations with Oanh MATIAS and reading MD notes, It seems that D/C isn't possible until after swallow study trey resulted 01/12. I spoke to patient about her thoughts/wishes about care after she leaves and she is VERY clear and adamant that she wishes to go home to be cared for by her son and her mixed crop and livestock farmer Pam. I called Heath - her son - after the conversation with patient and he supports his mothers wishes. He reports he has spent the last few days making adjustments to their home... He is picking up a hospital bed today. He is ready pick her up and bring her home whenever MD discharges. I asked if he would be open to HH and he said that he would if the MD was definite that she needed it, but he doesn't see the need. He feels very confident in their ability to care for patient without HH. If HH is ordered by MD he wants [facility]. He does repeat that he didn't think it necessary. Heath reports that he will be coming in later today to visit with patient. I alerted RN and PT in the event they want to talk to him. PT hopes to do caregiver training with Heath today at his visit.
--- NOTE | 2019-01-11 11:56 | PT-IP ANOTE ---
Pt son, Heath, will be in this afternoon for CG training. Time unknown, RN will notify PT/OT when he arrives.
[2019-01-11 12:00] VITALS: BP 142/89; PULSE 71; RESP 16; TEMP 36.6; O2SAT 94
[2019-01-11] MEDS: ONDANSETRON 4 MG/2 ML INJ IV (12:14)
--- NOTE | 2019-01-11 12:18 | SLP.IPNOTE ---
MBS has been changed to 8:30 Thu. Nursing notified. ELECTRIC SHAVER MECHANIC will attempt to discuss this with the pt and her son when he visits this afternoon.
--- NOTE | 2019-01-11 12:49 | DIET.PN ---
Dietary Progress Note RD f/u from initial consult 4d ago. Pt scheduled for MBS tomorrow, when trying to visit pt today, she was having emesis, RN thought related to CT contrast. Pt POs yesterday and today nearly 0 of concern r/t Pt dx of AFTT. Will change Ensure surgery bid to Nav bid to see if better tolerated while still supplementing PRO to support PCM. HT: 170cm WT: 71.6kg UBW: 77.3kg on 10/25/18 BMI: 24.7 Nutrition Diagnosis: Severe Acute PCM r/t difficulty eating as teeth removed 4mo ago c sore gums aeb unintentional 7.8% wt loss in 2 mo, avoidance of acidic foods, pressure ulcer on sacrum. Diet Order: EER: 1650kcal, 85g PRO (1.2g/kg), 2.1 L fluids Monitoring/Evaluations: Hoping to catch pt's son today to discuss home nutrition strategy.
--- NOTE | 2019-01-11 13:40 | OT.IP.TRT ---
Current Diagnoses Abnormal weight loss (01/06/19) Occupational Therapy Treatment Note M2 OT-IP Current Condition Start: 01/07/19 12:38 Freq: Status: Active Protocol: Document 01/07/19 11:44 [facility] (Rec: 01/07/19 12:54 [facility] [id number]) Occupational Therapy Current Condition Current Condition Evaluation Date 01/07/19 Treatment Diagnosis Pleural effusion, decreased mobility Weight Bearing Status Weight Bearing Status Weight Bear as Tolerated M3 OT- IP Subjective and Pain Start: 01/07/19 12:38 Freq: Status: Active Protocol: Document 01/11/19 13:33 [facility] (Rec: 01/11/19 13:38 [facility] [id number]) OT- Subjective Occupational Therapy Visit Type Type Treatment Note Visit Start Time 13:23 Visit Stop Time 13:31 Total Visit Minutes 8 Occupational Therapy Visit Comments Patient Comments Pt's son states does not want to pt to get up at this time for caregiver training and insists that he and the caregiver will be able to assist pt when she goes home. When asking pt to get up, pt looks to the son to answer for her. Explained in details the importance to get up even here in the hospital as every day she will get weaker if she does not get up from the bed. Pt's son states has all rolling shower chair, BSC, manual wheel chair, FWW, and now has a hospital bed at home for pt to use. In addition, pt son states will be getting a lift chair for the pt.
--- NOTE | 2019-01-11 13:59 | PT.IPTN ---
Current Diagnoses Abnormal weight loss (01/06/19) Physical Therapy Treatment Note M2 PT-IP Current Condition Start: 01/07/19 12:25 Freq: NEEDED Status: Active Protocol: Document 01/07/19 11:38 AB (Rec: 01/07/19 12:36 AB [id number]) Physical Therapy Current Condition Current Condition Evaluation Date 01/07/19 Treatment Diagnosis PNA; CHF; difficulty in walking Onset Date 01/06/19 M3 PT-IP Subjective Start: 01/07/19 12:25 Freq: NEEDED Status: Active Protocol: Document 01/11/19 13:46 AW (Rec: 01/11/19 13:59 AW [id number]) Subjective Physical Therapy Visit Type Type Treatment Note Visit Start Time 13:36 Visit Stop Time 13:42 Total Visit Minutes 16 Physical Therapy Visit Comments Patient Comments Pt reluctant but willing to participate Patient Goals To go home M4 PT-IP Mobility and Gait Start: 01/07/19 12:25 Freq: NEEDED Status: Active Protocol: Document 01/11/19 13:46 AW (Rec: 01/11/19 13:59 AW [id number]) PT-Bed Mobility Assessment Supine to Sit Supine to Sit Standby Assistance,1 Person Assistance Scooting Scooting to Edge of Bed Standby Assistance PT-Transfer Assessment Sit to and From Stand Sit to and from Stand Minimal Assistance,1 Person Assistance,Use of Upper Extremities Equipment Transfer Assistive Device Gait Belt,Front Wheeled Walker Orthotic/Prosthetic Devices or Brace: No Transfers Transfer Destination Chair Transfer Technique Stand Step Pivot Transfer Ability Level of Assist Minimal Assistance,1 Person Assistance,Use of Upper Extremities Comments Mobility Comments Pt completed supine to sit SBA without verbal cues and without need for increased time. Sit to stand required min assist using FWW. Transfer to chair was impulsive with pt requiring cues to keep walker with her until she made contact with the chair but required no more than min assist. Pt's son, Heath was present throughout and was able to demonstrate good technique with the gait belt and transfer assist as well as proper cues for safety with FWW. Gait Assessment Gait Gait Assistance Required: Contact Guard Assist,1 Person Assist Distance (Feet) 20 Able to Maintain Weight Bearing Status Yes During Gait Assistive Devices Assistive Device Gait Belt,Front Wheeled Walker Orthotic/Prosthetic Devices or Brace: No Gait Deviations General Gait Pattern Decreased Stride Length, Decreased Feet Clearance, Flexed Trunk Factors Limiting Gait Function Factors Limiting Gait Function Decreased Activity Tolerance, Decreased Strength,Pain,Poor Balance,Poor Safety Awareness Comments Gait Comments Pt ambulated using FWW CGA with significantly flexed posture. She required max cues to keep the walker closer to her trunk for safey. Her son, Heath demonstrated safe guarding technique and proper cueing for walker management. Stair Climbing Assessment Comments Stair Climbing Comments Pt refused but stated she will try tomorrow. M5 PT-IP Objective Assessments Start: 01/07/19 12:25 Freq: NEEDED Status: Active Protocol: Document 01/07/19 11:38 AB (Rec: 01/07/19 12:36 AB [id number]) Orientation Orientation/Cognition Level of Alertness Alert Orientation Name,Situation Safety Awareness Decreased Safety Awareness Gross Range of Motion Lower Extremity ROM Assessment Within Functional Limits Strength Lower Extremity Strength Hip 3+/5 Knee 4-/5 Muscle Tone Muscle Tone WNL Yes M6 PT-IP Treatment Start: 01/07/19 12:25 Freq: NEEDED Status: Active Protocol: Document 01/11/19 13:46 AW (Rec: 01/11/19 13:59 AW [id number]) Physical Therapy Treatment Education Education Provided Safety Other Treatments Other Treatment Performed Lowered FWW height for possible improved posture with gait. Will trial at next session. M7 PT-IP Assessment and Plan Start: 01/07/19 12:25 Freq: NEEDED Status: Active Protocol: Document 01/11/19 13:46 AW (Rec: 01/11/19 13:59 AW [id number]) PT Summary Assessment and Plan Summary Impairments Pain,ROM,Strength,Balance, Coordination,Sensation,Tone, Cognition,Bed Mobility, Transfers,Gait,Activity Tolerance Progress Towards Goals Slow Progress due to Activity Tolerance Assessment Summary Pt continues to report weakness is her limiting factor but is reluctantly willing to work with therapy. Pt required decreased level of assist this session. Her son, Heath, was able to provide appropriate assist and cues for safety. Modified barium swallow scheduled for tomorrow morning. PT will follow up with pt after exam with anticipated discharge to home with son and caregiver assist in the afternoon. Goals Bed Mobility Goal Independent Transfer Goal Independent,Front Wheeled Walker Gait Goal Independent,Front Wheel Walker Gait Distance 150 Other Goals up/down 5 steps B rails SBA Days to Meet Goals 10 Frequency of Treatment Frequency Of Treatment Once a Day Treatment Plan Physical Therapy Treatment Plan Bed Mobility Training,Transfer Training,Gait Training, Therapeutic Exercise,Balance Retraining,Post Op Education, Discharge Planning,Hot or Cold Pack,Neuromuscular Re-ed, Coordination Retraining,Manual Therapy Recommendations To Nursing Amount of Assist Needed 1 Person Assist Discharge Recommendations PT Discharge Recommendations Home with 08/09 Assist,Home Health Other Discharge Recommendations based on progress, SNF not likely needed
[2019-01-11] MEDS: HYDROCODONE/ACET 5/325 TABLET 1 TAB PO ×2 (14:06→21:15)
--- NOTE | 2019-01-11 15:24 | ST.IPIE ---
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) Asthma (Chronic Medical) Breast cancer (Resolved Medical ~2001) CAD (coronary artery disease) (Chronic Medical) Cerebrovascular accident (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 right middle cerebral artery (Inactive Medical 04/27/17) 04/2017 right temporparietal, 10/2017 right parietal lobe Cervical cancer, FIGO stage I (Chronic Medical) PT1a, PNX, pMX, Cholelithiasis (Chronic Medical) Chronic back pain (Chronic Medical) Developmental disorder (Chronic Medical) Essential hypertension (Chronic Medical 02/19/12) Fibrocystic breast disease (Chronic Medical) Adenomyosis GERD (gastroesophageal reflux disease) (Chronic Medical) History of colon polyps (Resolved Medical 02/19/12) History of left breast cancer (Acute Medical ~2008) T1 N0, lumpectomy, consolidation irradiation Hyperlipidemia (Chronic Medical) IBS (irritable bowel syndrome) (Chronic Medical) Measles (Resolved Medical) Middle cerebral artery stenosis (Chronic Medical ~10/2017) diminished flow/near occlusion of inferior branch of M2 right middle cerebral artery Obesity with body mass index (BMI) of 30.0 to 39.9 (Chronic Medical 02/19/12) Osteoarthritis of knees, bilateral (Acute Medical) severe tricompartmental Personal history of other malignant neoplasm of skin (Resolved Medical 02/19/12) Protein C deficiency (Chronic Medical ~05/2017) 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 function, NYHA class 2 (Chronic Medical 10/26/10) 10/2010 LVEF 50%, mild global left ventricular systolic dysfunction ST IP 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 Yesterday the pt became nauseated and has experienced frequent vomiting since then. Attempted MBSS this morning to assess swallow, but that was postponed until tomorrow in order not to interfere with abdomin/pelvis CT, which revealed: 1. Pelvic small bowel loops demonstrating signs of inflammation suggesting enteritis with a differential diagnosis including inflammatory bowel disease, less likely allergy, hemorrhage, or ischemia. 2. No evidence of bowel obstruction. 3. Focal hypodensity in the medial spleen may be normal variant heterogeneous perfusion, or potentially an early splenic infarct. Correlate with left upper quadrant pain. 4. Post cholecystectomy and hysterectomy. MBSS is scheduled for 8:30 am tomorrow. Pt was seen this afternoon for bedside swallow evaluation. The pt has history of CVA in Mar 2017. She was seen at this hospital by Speech Therapy in Mar and April 2017 for dysphagia and dysarthria. The pt at that time was on liquid diet secondary to GI issues and diagnosed with mild oropharyngeal dysphagia. Since then, she has had her teeth removed and experienced a >80-lbs weight loss since April 2018. Subjective Observations Pt was sitting up in chair. She recognized this MEAT APPRENTICE from having met this morning. The pt reported recently having consumed melinda kayleigh and pudding, as well as oral medication, but stated that she had just thrown it up. She did have an emesis bag in her lap containing liquid, which was provided to Ns. Evaluation Liquids Trialed Thin Solids Trialed Dysphagia Advanced Administration Type Cup Consecutive Sips,Straw, Self-Feeding Oral Impairment Moderately Impaired Oral Strategies Upright at 90 degrees, Controlled Bite/Sip Size Oral Phase Comments The pt is edentulous and still experiencing pain at her jaw from dental surgery, which she reports occurred about a year ago. She did exhibit a wet/ gurgly voice with and without oral consumption that did not significantly change following throat clearing. The pt had water and soda crackers bedside and consumed water from straw in consecutive sips, approx 2 oz. , without overt s/sx of aspiration. She attempted to eat 2 bites of soda cracker. She was unable to bite into the cracker but did break it into small pieces and then consume. The pt sucked on the crackers and expressed a dislike. While attempting to spit the cracker out, she began vomiting, a bit of water at first followed by a series of dry heaves. Nsg was notified and come to pt's aid. When vomiting subsided, the pt was provided oral care via mouthwash on an oral sponge and water to swish and spit. The pt performed this independently without further gag response. Pharyngeal Phase Comments Mild to moderate pharyngeal impairment is suspected d/t presence of wet and gurgly voice, indicating possible laryngeal penetration of oral secretions. Will more fully assess tomorrow via MBSS if pt is able to tolerate. Recommend the pt consume pureed or liquid foods in small bites/sips and small quantities at a time. Findings Dysphagia Type To be determined via MBSS Diet Recommendations Liquids Order Thin Diet Order Dysphagia Blenderized Medication Recommendations As Tolerated Additional Dietary Needs Single Sips Aspiration Precautions Recommended Precautions Upright at 90 Degrees,Frequent Rest Periods,Small Bites/Sips Treatment Plan Appropriate for Therapy Yes Therapy Recommendations MBSS for further evaluation and establishment of goals.
[2019-01-11 15:31] VITALS: BP 109/57; PULSE 80; RESP 18; TEMP 36.5; O2SAT 96
[2019-01-11 21:17] VITALS: BP 140/65; PULSE 72
[2019-01-11] MEDS: ENOXAPARIN 40 MG/0.4 ML SYRINGE SUBCUT (21:20)
[2019-01-12 02:00] VITALS: BP 91/56; PULSE 53; RESP 16; TEMP 36.8; O2SAT 94
[2019-01-12] MEDS: HYDROCODONE/ACET 5/325 TABLET 1 TAB PO (02:45)
[2019-01-12 05:22] LABS: Add Manual Diff / Slide Review NO; Basophils Absolute Auto 100 /uL (0-100); Basophils Percent Auto 0.7 % (0-2); Eosinophils Absolute Auto 100 /uL (0-450); Eosinophils Percent Auto 1.6 % (2-4); Hematocrit 28.1 % (36-46); Hemoglobin 9.2 g/dL (12.0-16.0); Lymphocytes Absolute Auto 2200 /uL (1100-4500); Lymphocytes Percent Auto 30.1 % (25-40); Mean Corpuscular HGB Conc 32.7 % (30-36); Mean Corpuscular Hemoglobin 31.4 PG (26-34); Monocytes Absolute Auto 600 /uL (0-900); Monocytes Percent Auto 8.1 % (3-14); Neutrophils Absolute Auto 4400 /uL (1500-7000); Neutrophils Percent Auto 59.5 % (50-75); Platelet Count 325 X10^3/uL (150-400); Red Blood Cell Count 2.93 X10^6/uL (4.0-5.2); Red Cell Distribution Width 15.8 % (11.6-14.8); White Blood Cell Count 7.4 X10^3/uL (4.5-11.0)
[2019-01-12 05:41] LABS: Blood Urea Nitrogen 15 mg/dL (7-17); Calcium 8.7 mg/dL (8.4-10.2); Carbon Dioxide 36 mmol/L (22-32); Chloride 92 mmol/L (98-107); Estimated Glomerular Filt Rate > 60.0 mL/min (>60); Glucose 84 mg/dL (80-110); HEMOLYSIS < 15 (0-50); Potassium 3.8 mmol/L (3.4-5.1); Sodium 129 mmol/L (137-145)
--- NOTE | 2019-01-12 06:49 | PC.NURSE ---
Patient has had no complaints of nausea this night. Patient did have some abdominal pain in the night 09/25, norco was given at 0245. Lung sounds diminished in bases. Bed is low and locked and call light is within reach.
[2019-01-12] MEDS: ONDANSETRON 4 MG/2 ML INJ IV (07:53)
--- NOTE | 2019-01-12 08:05 | ST.IPDYTX ---
Visit Care Team Role Provider Type Heather TapiaDO Admit Provider Physician Attending Provider Primary Care Provider Specialty: [facility] Address: [address] [place] [address], [facility] [address], [place], [address] Email: [email or web address] BUS CLEANER Dysphagia Treatment BUS CLEANER Dysphagia Treatment Start: 01/12/19 08:00 Freq: Status: Active Protocol: Document 01/12/19 08:00 TLC (Rec: 01/12/19 08:05 TLC [id number]) Dysphagia Treatment Session Time Visit Start Time 07:40 Visit Stop Time 08:00 Total Visit Minutes 20 Setting Assessment Location Acute Care Visit Type Note Type Treatment Note Patient Information Subjective Observations Patient seen lying in bed awake. Stated she was only a little bit nauseous, but felt she could participate in PO trials and MBS later this morning. Treatment Liquids Trialed Thin Treatment Activities hCana consumed ~4 oz of orange juice without overt signs of aspiration or emesis. Verbal education was provided regarding MBS procedure and patient verbalized understanding. She did not have any questions. Assessment Patient Response to Treatment Good Assessment of Improvement Patient is awake and alert. She reports less nausea and has not vomited since yesterday afternoon. Given this improvement in overall health, recommend continuing with original plan for Modified Barium Swallow Study scheduled for 8:30am this morning. Diet Recommendations Recommendations Continue Current Diet Liquids Order Thin Aspiration Precautions Recommended Precautions Upright at 90 Degrees,Small Bites/Sips,Check for Pocketing Treatment Plan Placement Recommendation after Discharge Home Appropriate for Continued Therapy Yes
--- NOTE | 2019-01-12 08:30 | DI.RAD.S_ITS ---
PROCEDURE: FL BARIUM SWALLOW W SPEECH INDICATIONS: dysphagia, choking TECHNIQUE: Examination was conducted in conjunction with speech pathology per standard protocol. In the lateral projection, filming was performed of the patient swallowing. AP projection filming may also be performed with patient swallowing. COMPARISON: None. FINDINGS: Function: The oral preparatory phase appears normal, with proper containment. The subsequent oral propulsive phase, pharyngeal phase, and esophageal phase of swallowing also appear normal with all proffered substances. No laryngotracheal penetration or aspiration. No pathologic vallecular pooling. Morphology: No cricopharyngeal bar is identified. No cervical esophageal webs. No Zenker's diverticulum. No strictures. IMPRESSION: Normal for age, source of current dysphagia and choking sensation symptoms is not seen. Please also refer to the dedicated speech therapy swallowing evaluation report which will be independently generated. Dictated by: Anival Turner M.D. on 01/12/2019 at 9:16 Approved by: Anival Turner M.D. on 01/12/2019 at 9:17
[2019-01-12 09:39] VITALS: BP 122/71; PULSE 81
[2019-01-12] MEDS: CYANOCOBALAMIN (VITAMIN B-12) 500 MCG TABLET 1000 MCG PO (09:39)
[2019-01-12] MEDS: LOSARTAN 50 MG TABLET PO ×2 (09:39→21:03)
[2019-01-12] MEDS: METOPROLOL IR 50 MG TABLET 25 MG PO ×2 (09:41→21:03)
[2019-01-12] MEDS: SODIUM CHLORIDE 0.9% FLUSH 10 ML IV ×2 (09:42→21:04)
[2019-01-12] MEDS: PANTOPRAZOLE 40 MG TABLET PO ×2 (09:42→21:03)
[2019-01-12] MEDS: GABAPENTIN 300 MG CAPSULE PO ×3 (09:42→21:03)
[2019-01-12] MEDS: FERROUS SULFATE 325 MG TABLET PO (09:46)
--- NOTE | 2019-01-12 10:15 | OT.IP.TRT ---
Current Diagnoses Abnormal weight loss (01/06/19) Occupational Therapy Treatment Note M2 OT-IP Current Condition Start: 01/07/19 12:38 Freq: Status: Active Protocol: Document 01/07/19 11:44 [facility] (Rec: 01/07/19 12:54 [facility] [id number]) Occupational Therapy Current Condition Current Condition Evaluation Date 01/07/19 Treatment Diagnosis Pleural effusion, decreased mobility Weight Bearing Status Weight Bearing Status Weight Bear as Tolerated M3 OT- IP Subjective and Pain Start: 01/07/19 12:38 Freq: Status: Active Protocol: Document 01/12/19 10:59 [facility] (Rec: 01/12/19 11:08 [facility] [id number]) OT- Subjective Occupational Therapy Visit Type Type Treatment Note Visit Start Time 10:15 Visit Stop Time 10:59 Total Visit Minutes 44 Occupational Therapy Visit Comments Patient Comments Pt willing to get up to do grooming at the sink. Patient/Caregiver Goals Pt wanting to go home when medically stable. OT Pain Assessment Pain When Pain Assessed At Rest Pain Present Pain Present Denied Pain M4 OT- IP ADL's Start: 01/07/19 12:38 Freq: Status: Active Protocol: Document 01/12/19 10:59 [facility] (Rec: 01/12/19 11:08 [facility] [id number]) OT ADL-Grooming General Evaluation Grooming Ability Standby Assistance Areas Needing Assistance Retrieving/Set-up of Grooming Items Comments OT Grooming Comments Set-up assist for mouth swap, wash cloth and comb. OT ADL-Oral Care General Eval Oral Care Ability Independent OT ADL-Dressing General Eval Lower Body Dressing Ability Maximum Assistance Areas Needing Assistance Underpants/Brief OT ADL-Toileting General Evaluation Toileting Ability Maximum Assistance Areas Needing Assistance Manage Clothing,Perform Perineal Hygiene Comments OT Toileting Comments Pt brief wet and needing assist for hygiene and to percy /doff brief. Pt did not realize that she was wet. Pt states at home able to let her family know to change her as needed. OT ADL-Bathing Comments OT Bathing Comments Pt not wanting to shower at this time. M5 OT- IP IADL's Start: 01/07/19 12:38 Freq: Status: Active Protocol: Document 01/07/19 11:44 [facility] (Rec: 01/07/19 12:54 [facility] [id number]) OT-Instrumental Activities of Daily Living Medication Management Medication Management Caregiver Administers Money Management Money Management Caregiver Provides Assistance Meal Preparation Meal Preparation Caregiver Provides Assist Lead Recreation Assistant Lead Recreation Assistant Caregiver Provides Assist Driving Driving Caregiver Provides Assist M6 OT- IP Functional Cognition Start: 01/07/19 12:38 Freq: Status: Active Protocol: Document 01/12/19 10:59 [facility] (Rec: 01/12/19 11:08 [facility] [id number]) Cognitive Factors Limiting Selfcare Function Cognitive Ability Level of Alertness Alert Attention Span Ability Capable of Focused Attention, Capable of Sustained Attention Ability to Follow Commands Able to Follow One Step Commands Safety Awareness Underestimates Need for Assistance Problem Solving Ability Unable to Identify Errors, Needs Assist to Identify Solutions Executive Function Ability Unable to Make Plans,Unable to Organize Plans,Unable to Remember Details Cognitive Comments Cognitive Assessment Comments Pt needing step by step commands to follow for LB dressing needs and safety for transfer with FWW. M7 OT- IP Mobility and Balance Start: 01/07/19 12:38 Freq: Status: Active Protocol: Document 01/12/19 10:59 [facility] (Rec: 01/12/19 11:08 [facility] [email or web address]) OT- Bed Mobility Assessment Supine to Sit Supine to Sit Assist Standby Assistance Sit to Supine Sit to Supine Assist Standby Assistance OT-Transfer Assessment Sit to and From Stand Sit to and from Stand Minimal Assistance,Moderate Assistance Transfers Transfer Ability Minimal Assistance,Moderate Assistance Technique Transfer Destination Bed,Chair Transfer Technique Stand Step Pivot Devices Transfer Assistive Devices Gait Belt,Front Wheeled Walker Comments Mobility Comments Pt needing more assist as tires MODA while walking with FWW for balance,to keep upright, and help guide the FWW. Pt transferred to recliner with MIN/MODA and chair alarm placed on pt and call light given to pt. OT- Balance Assessment Sitting Balance and Reactions Static Sitting Balance Ability Normal Dynamic Sitting Balance Ability Good Standing Balance and Reactions Static Standing Balance Ability Fair Dynamic Standing Balance Ability Poor M8 OT- IP Objective Assessments Start: 01/07/19 12:38 Freq: Status: Active Protocol: Document 01/07/19 11:44 [facility] (Rec: 01/07/19 12:54 [facility] [id number]) OT Gross Range of Motion Upper Extremity Range of Motion Assessment Bilaterally Impaired ROM Impairments RUE shoulder felxion 0-100, LUE shoulder flexion 0-30. OT Strength Upper Extremity Strength Assessment Bilaterally Impaired Comments Strength Comments Claim Administrator strength 3+/5. LUE 3-/5 and RUE 4-/5 proximally. OT- Coordination Assessment Comments Coordination Comments Arthritic changes in hands and needing assist for set-up. OT-Muscle Tone Assessment Muscle Tone WNL Yes M9 OT- IP Assessment and Plan Start: 01/07/19 12:38 Freq: Status: Active Protocol: Document 01/12/19 10:59 [facility] (Rec: 01/12/19 11:08 [facility] [id number]) OT Summary Assessment and Plan Potential Rehabilitation Potential Good Analytic Complexity at Evaluation Low Summary OT Impairments Strength,Balance,Functional Cognition,Functional Mobility, Dressing,Toileting,Bathing, Toilet Transfers,Shower Transfers Progress Towards Goals Slow Progress due to Activity Tolerance,Slow Progress due to Cognition Assessment Summary Pt continues to need lots of encouragement to participate in therapy. Pt to have 24/7 assist at home for needs and would benefit from home health to work on increasing overall activity tolerance and safety with functional mobility needs. Goals Days to Meet Goals 5 Frequency of Treatment Frequency Of Treatment Once a Day Treatment Plan Other Treatment Recommendations and Next Shower if pt willing. Treatment Focus Discharge Recommendations OT Discharge Recommendations Home with 24/7 Assist,Home Health
[2019-01-12 10:18] VITALS: BP 131/78; PULSE 67; RESP 16; TEMP 36.4; O2SAT 94
--- NOTE | 2019-01-12 11:20 | PT.IPTN ---
Current Diagnoses Abnormal weight loss (01/06/19) Physical Therapy Treatment Note M2 PT-IP Current Condition Start: 01/07/19 12:25 Freq: NEEDED Status: Active Protocol: Document 01/07/19 11:38 AB (Rec: 01/07/19 12:36 AB [id number]) Physical Therapy Current Condition Current Condition Evaluation Date 01/07/19 Treatment Diagnosis PNA; CHF; difficulty in walking Onset Date 01/06/19 M3 PT-IP Subjective Start: 01/07/19 12:25 Freq: NEEDED Status: Active Protocol: Document 01/12/19 11:20 AB (Rec: 01/12/19 11:59 AB [id number]) Subjective Physical Therapy Visit Type Type Treatment Note Visit Start Time 11:20 Visit Stop Time 11:47 Total Visit Minutes 27 Notes Checked on pt earlier this morning but pt just finished with OT and c/o being tired. informed pt that PT will come back to do stair training. Number of SAFETY TECH Visits 0 Physical Therapy Visit Comments Patient Comments pt agreed to do PT M4 PT-IP Mobility and Gait Start: 01/07/19 12:25 Freq: NEEDED Status: Active Protocol: Document 01/12/19 11:20 AB (Rec: 01/12/19 11:59 AB [id number]) PT-Transfer Assessment Sit to and From Stand Sit to and from Stand Contact Guard Assistance,1 Person Assistance,Use of Upper Extremities Equipment Transfer Assistive Device Gait Belt,Front Wheeled Walker Orthotic/Prosthetic Devices or Brace: No Transfers Transfer Destination Wheelchair Transfer Technique ambulated using FWW Transfer Ability Level of Assist Contact Guard Assistance, Minimal Assistance,1 Person Assistance,Use of Upper Extremities Comments Mobility Comments pt completed sit to stand from chair CGA. pt required ~ 3 attempts before being able to stand upright. pt ambulated to the w/c ~ 15 ft CGA to min A towards end of ambulation with turning to sit on w/c. pt complete stair training. ambulated from the w/c back to the chair ~ 12 ft using FWW CGA to min A and cues. positioned pt on the chair. chair alarm on. call light and table placed within reach. Gait Assessment Gait Gait Assistance Required: Contact Guard Assist,Minimum Assistance Distance (Feet) 15 Able to Maintain Weight Bearing Status Yes During Gait Assistive Devices Assistive Device Gait Belt,Front Wheeled Walker Orthotic/Prosthetic Devices or Brace: No Gait Deviations General Gait Pattern Antalgic,Decreased Stride Length,Decreased Feet Clearance,Flexed Trunk,Step-to Gait Factors Limiting Gait Function Factors Limiting Gait Function Decreased Activity Tolerance, Decreased Strength,Poor Balance,Poor Safety Awareness Comments Gait Comments pt ambulated w/c<>chair using FWW 15+12 ft CGA to min A and cues for safety. pt presents with antalgic gait and increase trunk flexion during ambulation. pt stated that she does not have to walk much at home and usually uses a w/ c for mobility. Stair Climbing Assessment Evaluation Level of Assist On Stairs Minimal Assistance,1 Person Assistance Devices Stair Climbing Assistive Devices Left Railing,Right Railing Technique/Endurance Stair Climbing Direction Ascend and Descend Stair Climbing Technique Step to Step Number of Steps Climbed 3 Stair Climbing Set # Repetitions (reps) 1 M5 PT-IP Objective Assessments Start: 01/07/19 12:25 Freq: NEEDED Status: Active Protocol: Document 01/07/19 11:38 AB (Rec: 01/07/19 12:36 AB [id number]) Orientation Orientation/Cognition Level of Alertness Alert Orientation Name,Situation Safety Awareness Decreased Safety Awareness Gross Range of Motion Lower Extremity ROM Assessment Within Functional Limits Strength Lower Extremity Strength Hip 3+/5 Knee 4-/5 Muscle Tone Muscle Tone WNL Yes M6 PT-IP Treatment Start: 01/07/19 12:25 Freq: NEEDED Status: Active Protocol: Document 01/12/19 11:20 AB (Rec: 01/12/19 11:59 AB [id number]) Physical Therapy Treatment Education Education Provided Safety M7 PT-IP Assessment and Plan Start: 01/07/19 12:25 Freq: NEEDED Status: Active Protocol: Document 01/12/19 11:20 AB (Rec: 01/12/19 11:59 AB [id number]) PT Summary Assessment and Plan Potential Rehabilitation Potential Good Summary Impairments Pain,ROM,Strength,Balance, Cognition,Bed Mobility, Transfers,Gait,Activity Tolerance Progress Towards Goals Slow Progress due to Activity Tolerance Assessment Summary pt requires one person assist with mobility and continues to have decrease activity tolerance. pt plans to go home and son will be able to assist pt at home. pt may go home when medically stable. may require homehealth PT to improve strength and independence Goals Bed Mobility Goal Independent Transfer Goal Independent,Front Wheeled Walker Gait Goal Independent,Front Wheel Walker Gait Distance 150 Other Goals up/down 5 steps B rails SBA Days to Meet Goals 10 Frequency of Treatment Frequency Of Treatment Once a Day Treatment Plan Physical Therapy Treatment Plan Bed Mobility Training,Transfer Training,Gait Training, Therapeutic Exercise,Balance Retraining,Post Op Education, Discharge Planning,Hot or Cold Pack,Neuromuscular Re-ed, Coordination Retraining,Manual Therapy Recommendations To Nursing Amount of Assist Needed 1 Person Assist Discharge Recommendations PT Discharge Recommendations Home with 08/09 Assist,Home Health
--- NOTE | 2019-01-12 11:35 | ST.SWALLOW ---
Visit Care Team Role Provider Type Heather Tapia DO Admit Provider Physician Attending Provider Primary Care Provider Specialty: [facility] Address: [address] [place] [address], [address], [place], [address] Email: [email or web address] Modified Barium Swallow Study [employer]IPMENT [employer] Modified Barium Swallow Study Start: 01/11/19 14:55 Freq: Status: Active Protocol: Document 01/12/19 09:08 SASHA (Rec: 01/12/19 09:29 SASHA [id number]) Modified Barium Swallow Study Total Time Visit Start Time 08:30 Visit Stop Time 09:10 Total Visit Minutes [address] Tapia Reason for Referral Dysphagia Setting Setting Acute Care Patient Information Identification Type Name Patient History 83-yr-old female pt admitted to hospital Jan 06 with community acquired pna, failed outpatient treatment with pleural effusion. During hospital stay, the pt has experienced many episodes of vomiting and diarrhea. She has had 15-lbs weight loss in the last 2 months; 81 lbs lost since April 2017. MBS ordered to assess swallow function for possible contributing factors. Subjective Observations The pt was without emesis overnight and tolerated orange juice this morning, administered by ELECTR[employer] EQUIPMENT TESTER, without overt s/sx of aspiration or nausea. The pt was transported to radiology and reported feeling ok, a little tired. She denied nausea. MBS procedure was explained to her and she was agreeable to participate. Trials were limited to reduce risk of nausea/vomiting/diarrhea for pt safety and comfort. Patient Positioning Position View Lateral Imaging Lateral View Textures Administered Trials Presented Thin Liquid via Spoon,Thin Liquid via Cup,Pudding Thick Liquid via Spoon,Barium Tablet Oral Phase Source: MBSIMP (TM) (C) Bolus Specific Scoring Grid Lip Closure WFL Bolus Prep/Mastication Moderate Impairment Bolus Transport/Lingual Motion Moderate Impairment A/P Lingual Propulsion Delay Yes Number of Seconds Delayed (seconds) 6 Oral Residue Mild Impairment Residue Clearing Mild Impairment Nasal Regurgitation No Additional Oral Phase Observations Oral Peripheral Exam: Pt is edentulous with tenderness at gums. Moderate-severe lingual weakness; adequate ROM and coordination. Reduced labial and buccal strength. Soft palate elevates mildly upon phonation, which was also weak. Oral Phase: Absence of dentition and significant lingual weakness result in poor bolus hold and prep, with substances spilling to floor of mouth, and lingual rocking during A/P propulsion. The pt had great difficulty transferring barium tablet posteriorly from tongue blade, requiring multiple attempts with consecutive sips of water. Mastication of pureed and dysphagia mechanical textures was effortful and mashing in nature d/t edentulous status, requiring extensive time. Weakness at back of tongue allowed early escape of boluses to vallecula prior to swallow trigger. Oral clearance was adequate with no evidence of pocketing. Pharyngeal Phase Source: MBSIMP (TM) (C) Bolus Specific Scoring Grid Delayed Initiation of Pharyngeal Swallow Yes Soft Palate Elevation WFL Tongue Base Strength/Range of Motion Moderate Impairment Residue Along the Tongue Base Yes Clearance of Residue Along Tongue Base Mild Impairment Laryngeal Elevation Mild Impairment Anterior Hyoid Movement Mild Impairment Epiglottic Range of Motion Moderate Impairment Vallecular Residue Yes: Mild Clearance of Vallecular Residue Mild Impairment Laryngeal Vestibular Closure Mild Impairment Pharyngeal Stripping Wave Mild Impairment Posterior Pharyngeal Wall Residue Yes: Minimal Clearance of Posterior Pharyngeal Wall WFL Residue Upper Esophageal Sphincter Opening WFL Residue in the Pyriform Sinuses Yes: Trace to Mild Clearance of Residue in the Pyriform Minimal Impairment Sinuses Pharyngoesophageal Backflow Observed No Additional Pharyngeal Phase Observations Mild to moderate impairments were noted including reduced hyolaryngeal elevation and anterior excursion contributing to incomplete epiglottic inversion and subsequent mild residue at vallecula. Initiation of pharyngeal swallow was delayed with bolus observed at vallecula and posterior epiglottis prior to onset of swallow with single liquid sips and solids, and at times reaching pyriform sinuses during consecutive sips. Closure of the laryngeal vestibule was mildly reduced, although no penetration or aspiration was observed. Mild amounts of phayrngeal residue were present, particularly at vallecula, as mentioned. A small osteophyte at C6-C7 was observed but did not impede bolus flow. There was no pooling below UES or backflow of bolus. A 13mm barium tablet cleared the pharynx without difficulty. Gag reflex was not triggered, and the pt had no complaints of nausea or episodes of emesis during and within the ~20 minutes after the study, during which this ELECTR[employer] EQUIPMENT TESTER observed the pt. NOTE: Advanced textures beyond pureed were not trialed under fleuroscopy secondary to pt's dentition and expressed tenderness at gums. However, following the MBS, Nsg expressed concern of the pt consuming advanced textures at home, and the pt reported occasionally consuming textures matching dysphagia mechanical. Therefore, dysphagia mechanical texture was trialed at bedside. The pt exhibited oral prep and swallow phases as described above, and no overt s/sx of aspiration. A/P View Clinical Impressions Dysphagia Type Moderate Oral and Mild Pharyngeal Dysphagia Findings The pt presents with moderate oral and mild pharyngeal dysphagia secondary to edentulous status and weakness of swallow musculature, particularly lingual weakness. Extended time and effort was required for oral preparation and a/p propulsion of boluses, allowing occasional early escape of boluses to pharynx prior to swallow onset. The pt had a particularly difficult time clearing the barium tablet from the oral cavity. Airway protection and pharyngeal clearance, including barium tablet, were WFL, although reduced hyolaryngeal and epiglottic movements and reduced pharyngeal stripping wave result in mild residue. The pt does not appear to be at high risk of aspiration. Patient Appropriate for Therapy No Recommendations Diet Liquids Order Thin Diet Order Dysphagia Mechanical Medication Recommendation As Tolerated Comments Meds crushed in carrier may be easier for the pt to manage orally. Additional Dietary Needs Chopped Food Aspiration Precautions Recommended Precautions Upright at 90 Degrees,Frequent Rest Periods,Small Bites/Sips Treatment Plan Placement Recommendation After Discharge Home,Home Care
--- NOTE | 2019-01-12 16:09 | P.PN_ITS ---
Subjective Subjective Date Patient Seen: 01/12/19 Time Patient Seen: 13:09 Interval history: Pneumonia. Patient feeling better apparently has some problems with nausea and vomiting yesterday which have resolved. She is not having any abdominal pain. She is apparently having swallowing which is being monitored by speech therapy and were recommending a blended diet. Patient is trying to be little more ambulatory. Anticipating be discharged home tomorrow. Denies any respiratory symptoms at this time no shortness of breath no cough no chest pain Exam Vital Signs (past 8 hours): - 01/12/19 09:39 01/12/19 10:18 Temperature 97.5 F L Pulse Rate 81 67 Respiratory Rate 16 Blood Pressure 122/71 131/78 Pulse Oximetry 94 Oxygen Delivery Method Room Air Oxygen Flow Rate 0 Narrative Exam Narrative: Patient is examined sitting in the chair and next to the bed. Resting quietly appearing in no distress conversant. HEENT is unremarkable. Chest exam decreased breath sounds both sides no rales rhonchi or wheezes. Cardiac exam regular rhythm no murmur gallop. Abdominal exam no tenderness. And she has no edema Objective Labs Result Diagrams: 01/12/19 05:08 01/12/19 05:08 Labs: Laboratory Results - last 24 hr 01/12/19 01/12/19 05:08 05:08 WBC 7.4 RBC 2.93 L Hgb 9.2 L Hct 28.1 L MCV 96.0 MCH 31.4 MCHC 32.7 RDW 15.8 H Plt Count 325 Neut % (Auto) 59.5 Lymph % (Auto) 30.1 [place] % (Auto) 8.1 Eos % (Auto) 1.6 L Baso % (Auto) 0.7 Neut # (Auto) 4400 Lymph # (Auto) 2200 [place] # (Auto) 600 Eos # (Auto) 100 Baso # (Auto) 100 Sodium 129 L Potassium 3.8 Chloride 92 L Carbon Dioxide 36 H BUN 15 Creatinine 0.60 Estimated GFR > 60.0 BUN/Creatinine Ratio 25.0 H Glucose 84 Calcium 8.7 Labs reviewed from day of note his decreased sodium Vital signs are stable Assessment & Plan Assessment & Plan narrative: 1. Community-acquired pneumonia appropriately treated symptoms resolved. 2. Presumed persistent pleural effusion presumably secondary to infection. 3. General weakness stable but perhaps improved. 4. Swallowing difficulties being managed. Today well a attempt more physical therapy more ambulation attending to get to get patient to be to be discharged home tomorrow with son and close friend. Dr. Olmedo to be seeing patients tomorrow on
[2019-01-12 16:30] VITALS: BP 135/73; PULSE 80; RESP 18; TEMP 36.3; O2SAT 99
[2019-01-12] MEDS: ENOXAPARIN 40 MG/0.4 ML SYRINGE SUBCUT (21:03)
[2019-01-12 23:29] LABS: Methylmalonic Acid 368 nmol/L (87-318)
[2019-01-13 03:21] VITALS: BP 140/70; PULSE 80; RESP 16; TEMP 36.9; O2SAT 94
[2019-01-13] MEDS: HYDROCODONE/ACET 5/325 TABLET 1 TAB PO (04:48)
[2019-01-13] MEDS: CYANOCOBALAMIN (VITAMIN B-12) 500 MCG TABLET 1000 MCG PO (09:07)
[2019-01-13] MEDS: PANTOPRAZOLE 40 MG TABLET PO (09:08)
[2019-01-13] MEDS: LOSARTAN 50 MG TABLET PO (09:08)
[2019-01-13] MEDS: METOPROLOL IR 50 MG TABLET 25 MG PO (09:08)
[2019-01-13] MEDS: GABAPENTIN 300 MG CAPSULE PO (09:08)
[2019-01-13] MEDS: FERROUS SULFATE 325 MG TABLET PO (09:14)
[2019-01-13] MEDS: SODIUM CHLORIDE 0.9% FLUSH 10 ML IV (09:15)
[2019-01-13 09:16] VITALS: BP 139/70; PULSE 78; RESP 16; O2SAT 96
--- NOTE | 2019-01-13 09:57 | P.DS_ITS ---
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 She lives with her son who serves as her caregiver. Her health has deteriorated after she had a very bad year in 2018. She continues with a productive cough of white suptum which has cause her ribs to ache. She has baseline low back pain and says that it is worse now. Has left leg pain and history of knee osteoarthritis. Patient and son report that admission was not discussed with them at the ED visit. However documentation says otherwise and that patient wanted to go home. Son reports that patient was feverish last night. Has had ongoing chills. Remains fatigued. {from Dr. Tapia's H&P 01/06/19} Discharge Providers Provider Date of admission: 01/06/19 11:41 Discharge Date: 01/13/19 Primary care physician: Heather Tapia DO Consults: 01/06/19 12:00 Consult to Respiratory Therapy Evaluate & Treat Comment: Physician Instructions: Evaluate and treat 01/06/19 12:31 Consult to Dietitian, Adult Routine Comment: Reason For Exam: protocol, mini nutrition assessment score 01/06/19 22:23 Consult to Occupational Therapy Evaluate & Treat Comment: Physician Instructions: Evaluate and treat Consult to Physical Therapy Evaluate & Treat Comment: Physician Instructions: Evaluate and Treat 01/07/19 08:48 Consult to Dietitian, Adult Routine Comment: Reason For Exam: weight loss 01/10/19 08:21 Consult to Speech Therapy Evaluate & Treat Comment: Physician Instructions: Evaluate and treat 01/10/19 09:02 Consult to Speech Therapy Evaluate & Treat Comment: choking Physician Instructions: Evaluate and treat Discharge provider: Heath Olmedo MD Summary Hospital Course Discharge Diagnosis: 1. Pneumonia, community-acquired, failed outpatient treatment 2. Pleural effusion secondary to infectious etiology 1. Above, resolving but not resolved upon discharge 3. Severe Malnutrition due to protein calorie restriction. Patient failing at home and increasingly weak. 4. Atrial fibrillation, chronic 5. Protein C and protein S deficiency with history of arterial thrombus, on warfarin but not at all compliant with monitoring, warfarin discontinued ther efore per PCP 6. Osteoarthritis with chronic pain 7. Acute on chronic congestive heart failure due to some left ventricular systolic dysfunction Hospital Course: Patient was admitted because of increased respiratory difficulty and weakness. Been seen in the ER several days prior to admission but failed attempts at outpatient treatment for her pneumonia. Patient was also found to have significant weight loss and increasing weakness. Basically she was felt as though in addition to the pneumonia she was failing at home. Had some noncompliance with medications no recent monitoring of her protime on warfarin for example etc Patient was treated with IV antibiotics for pneumonia. Part of her respiratory distress was felt to be chronic with an acute exacerbation congestive heart failure. Repeat echocardiography showed impairment of her left ventricular function with an LV EF of approximately 35- 40% with global hypokinesis. Patient also had difficulty swallowing which may be contributing to her weight loss and her severe protein calorie malnutrition. This was addressed by speech therapy will be continued as an outpatient Status at Discharge Cognitive/behavioral status at discharge: at baseline, oriented Functional status at discharge: uses cane/walker Overall status at discharge: patient is progressing back to baseline Time Spent with Patient Time spent: Greater than 30 minutes Exam Vital Signs (past 8 hours): - 01/13/19 03:21 01/13/19 09:16 Temperature 98.5 F Pulse Rate 80 78 Respiratory Rate 16 16 Blood Pressure 140/70 139/70 Pulse Oximetry 94 96 Oxygen Delivery Method Room Air Oxygen Flow Rate 0 Objective Labs Result Diagrams: 01/12/19 05:08 01/12/19 05:08 Labs: Laboratory Results - last 24 hr 01/07/19 08:20 Methylmalonic Acid 368 H Discharge Plan Discharge Plan Patient Disposition: Home Health Service Transfer to: [facility] Discharge comment: Or whichever Home Health Service patient prefers, and can see patient in timely fashion Discharge orders & Medications Prescriptions: New ferrous sulfate 325 mg (65 mg iron) Tablet 325 mg PO DAILY Qty: 60 RF: 2 gabapentin [Neurontin] 300 mg Capsule 300 mg PO TID Qty: 90 RF: 5 Continued albuterol sulfate [Proventil HFA] 90 mcg/actuation HFA aerosol inhaler 2 puff INHALATION Q6H PRN (Reason: shortness of breath or wheezing) Qty: 8 RF: 0 metoprolol tartrate 50 mg tablet 25 mg PO BID Qty: 90 RF: 3 pantoprazole 40 mg tablet,delayed release (DR/EC) 40 mg PO BID Qty: 60 RF: 0 hydrocodone-acetaminophen 5-325 mg tablet 1 tab PO Q6H PRN (Reason: pain) Qty: 112 RF: 0 losartan 50 mg tablet 50 mg PO BID Qty: 180 RF: 3 mupirocin 2 % ointment 1 applic Topical DIRECTED RF: 0 nitroglycerin [Nitrostat] 0.4 MG tablet, sublingual 0.4 mg Sublingual PRN PRN (Reason: Chest Pain) RF: 0 atorvastatin 80 mg tablet 80 mg PO QPM RF: 0 Spacer: Inhaler Spacer Device 1 ea miscellaneous DIRECTED RF: 0 Discontinued warfarin 3 mg tablet 1.5 mg PO QPM Qty: 60 RF: 3 gabapentin 100 mg capsule 100 mg PO Q8H Qty: 90 RF: 1 doxycycline hyclate 100 mg capsule 100 mg PO BID Qty: 20 RF: 0 No Action (DME) Handicap Parking Qty: 1 RF: 0 Follow up/Referrals: Heather Tapia DO [Primary Care Provider] - 1 Week Diet/Activity/Treatments Diet: Diet as Tolerated Diet comment: Blenderized soft as per Speech Therapy in hospital Visit Report/Discharge Packet Instructions: DI for Heart Failure, DI for Atrial Fibrillation Discharge Data Primary Care Provider: Heather Tapia Discharges patient from system. Discharge Date/Time: 01/13/19 11:28
--- NOTE | 2019-01-13 11:30 | PC.NURSE ---
pt discharged to home with son, plan to follow up with Dr. Tapia next week ( office to call for appt)- new rx electronically sent to [facility]- ALL QUESTIONS ANSWERED TO FAMILY'S SATISFACTION
--- NOTE | 2019-01-13 11:32 | PT.IPTN ---
Current Diagnoses Adult failure to thrive (01/06/19) Abnormal weight loss (01/06/19) Physical Therapy Treatment Note M2 PT-IP Current Condition Start: 01/07/19 12:25 Freq: NEEDED Status: Discharge Protocol: Document 01/07/19 11:38 AB (Rec: 01/07/19 12:36 AB [id number]) Physical Therapy Current Condition Current Condition Evaluation Date 01/07/19 Treatment Diagnosis PNA; CHF; difficulty in walking Onset Date 01/06/19 M3 PT-IP Subjective Start: 01/07/19 12:25 Freq: NEEDED Status: Discharge Protocol: Document 01/13/19 11:20 SP (Rec: 01/13/19 11:52 SP [id number]) Subjective Physical Therapy Visit Type Type Treatment Note Visit Start Time 11:20 Visit Stop Time 11:32 Total Visit Minutes 12 Physical Therapy Visit Comments Patient Comments Pt agreed to work with PT, wanting to go home today. Therapy Pain Assessment Pain Present Pain Present Denied Pain M4 PT-IP Mobility and Gait Start: 01/07/19 12:25 Freq: NEEDED Status: Discharge Protocol: Document 01/13/19 11:20 SP (Rec: 01/13/19 11:52 SP [id number]) PT-Bed Mobility Assessment Rolling Type of Rolling Roll to Right Supine to Sit Supine to Sit Standby Assistance Scooting Scooting to Edge of Bed Standby Assistance PT-Transfer Assessment Sit to and From Stand Sit to and from Stand Standby Assistance,Use of Upper Extremities Equipment Transfer Assistive Device Gait Belt,Front Wheeled Walker Orthotic/Prosthetic Devices or Brace: No Transfers Transfer Destination Wheelchair Transfer Technique ambulated using FWW Transfer Ability Level of Assist Contact Guard Assistance,1 Person Assistance,Use of Upper Extremities Comments Mobility Comments Pt completed bed mobility SBA, sit to stand from EOB CGA using FWW in 1 attempt, cued for upright posture once standing. Pt required cuing for proper hand placement reaching back and slow controlled descent seated in to w/c for strenght and safety . Gait Assessment Gait Gait Assistance Required: Contact Guard Assist,1 Person Assist Distance (Feet) 80 Able to Maintain Weight Bearing Status Yes During Gait Assistive Devices Assistive Device Gait Belt,Front Wheeled Walker Orthotic/Prosthetic Devices or Brace: No Gait Deviations General Gait Pattern Antalgic,Decreased Stride Length,Decreased Feet Clearance,Flexed Trunk,Step-to Gait Factors Limiting Gait Function Factors Limiting Gait Function Decreased Activity Tolerance, Decreased Strength,Poor Balance,Poor Safety Awareness Comments Gait Comments Pt was able to increase gait distance approx 80ft room to elevator CGA to Min A using FWW with intermittent cuing for upright posture, increase stride and foot clearance for safety and energy conservation . Pt presents with antalgic gait and increase trunk flexion during ambulation. PT-Balance Assessment Sitting Balance and Reactions Static Sitting Balance Ability Fair Dynamic Sitting Balance Ability Fair Standing Balance and Reactions Static Standing Balance Ability Fair Dynamic Standing Balance Ability Poor Device Used FWW M5 PT-IP Objective Assessments Start: 01/07/19 12:25 Freq: NEEDED Status: Discharge Protocol: Document 01/07/19 11:38 AB (Rec: 01/07/19 12:36 AB [id number]) Orientation Orientation/Cognition Level of Alertness Alert Orientation Name,Situation Safety Awareness Decreased Safety Awareness Gross Range of Motion Lower Extremity ROM Assessment Within Functional Limits Strength Lower Extremity Strength Hip 3+/5 Knee 4-/5 Muscle Tone Muscle Tone WNL Yes M6 PT-IP Treatment Start: 01/07/19 12:25 Freq: NEEDED Status: Discharge Protocol: Document 01/13/19 11:20 SP (Rec: 01/13/19 11:52 SP [id number]) Physical Therapy Treatment Education Education Provided Safety M7 PT-IP Assessment and Plan Start: 01/07/19 12:25 Freq: NEEDED Status: Discharge Protocol: Document 01/13/19 11:20 SP (Rec: 01/13/19 11:52 SP [id number]) PT Summary Assessment and Plan Potential Rehabilitation Potential Good Status of Condition at Evaluation Evolving Summary Impairments Pain,ROM,Strength,Balance, Cognition,Bed Mobility, Transfers,Gait,Activity Tolerance Progress Towards Goals Slow Progress due to Activity Tolerance Assessment Summary pt required SBA during bed mobility, and continued to have decrease activity tolerance in standing. pt plans to go home and son will be able to assist pt at home. pt may go home when medically stable. may require homehealth PT to improve strength and independence Goals Bed Mobility Goal Independent Transfer Goal Independent,Front Wheeled Walker Gait Goal Independent,Front Wheel Walker Gait Distance 150 Other Goals up/down 5 steps B rails SBA Days to Meet Goals 10 Frequency of Treatment Frequency Of Treatment Once a Day Treatment Plan Physical Therapy Treatment Plan Bed Mobility Training,Transfer Training,Gait Training, Therapeutic Exercise,Balance Retraining,Post Op Education, Discharge Planning,Hot or Cold Pack,Neuromuscular Re-ed, Coordination Retraining,Manual Therapy Recommendations To Nursing Amount of Assist Needed 1 Person Assist Discharge Recommendations PT Discharge Recommendations Home with / Assist,Home Health Other Discharge Recommendations based on progress, SNF not likely needed
--- NOTE | 2019-01-13 13:41 | CM.DPC ---
DCP Cont: Spoke to nurse Ugarte, to let this caser, or let Dr. Olmedo know that patient can go home today. Confirmed with patient that she wants to go home, it's her dog's 9th birthday. Let patient know that when this caser does see the doctor, will let him know. Nurse Shanel had seen Dr. Olmedo and called to let this caser know that he was putting in discharge orders. Patient is to be picked up by son at approximately 11:00am today. Patient and son confirmed that they do not need home health/ P: Patient is discharging home today with no barriers, in the care of patient's son and caregiver, Jan. Tiffanie Morse RN/[employer]
== END 2019-01-13 11:28 | disposition home or self-care (01) | DRG 193 ==
PROVIDERS: Family Medicine; Admitting Provider Family Medicine; PCP Family Medicine; Visit Provider Family Medicine
DX: J18.9 Pneumonia, unspecified organism (principal); E43 Unspecified severe protein-calorie malnutrition; I50.23 Acute on chronic systolic (congestive) heart failure; D68.59 Other primary thrombophilia; I48.19 Other persistent atrial fibrillation; J91.8 Pleural effusion in other conditions classified elsewhere; I11.0 Hypertensive heart disease with heart failure; R62.7 Adult failure to thrive; L89.159 Pressure ulcer of sacral region, unspecified stage; E78.5 Hyperlipidemia, unspecified; G89.29 Other chronic pain; M19.90 Unspecified osteoarthritis, unspecified site; I25.10 Atherosclerotic heart disease of native coronary artery without angina pectoris; Z95.1 Presence of aortocoronary bypass graft; Z68.24 Body mass index [BMI] 24.0-24.9, adult
CPT/HCPCS: 36415; 36573; 36592; 71045; 71046; 71250; 74177; 74230; 80048; 80053; 80061; 81001; 82607; 82728; 83540; 83550; 83880; 83921; 85025; 87040; 87502; 87507; 90471; 90656; 92526; 92610; 92611; 93306; 94762; 97116; 97162; 97165; 97530; 97535; 99223; 99232; 99233; 99238; J1650; J2270; J2405; Q2038; Q9967

== ENCOUNTER 2019-02-13 13:05 | Emergency (ER) | payer MEDICARE, OTHER, SELFPAY ==
[2019-02-13 13:16] VITALS: BP 176/83; PULSE 82; RESP 19; TEMP 37.3; O2SAT 95
[2019-02-13 13:34] LABS: Add Manual Diff / Slide Review NO; Basophils Absolute Auto 0 /uL (0-100); Basophils Percent Auto 0.2 % (0-2); Eosinophils Absolute Auto 0 /uL (0-450); Hematocrit 38.4 % (36-46); Hemoglobin 12.5 g/dL (12.0-16.0); Lymphocytes Absolute Auto 1100 /uL (1100-4500); Lymphocytes Percent Auto 11.3 % (25-40); Mean Corpuscular HGB Conc 32.7 % (30-36); Mean Corpuscular Hemoglobin 30.9 PG (26-34); Mean Corpuscular Volume 94.5 fL (80-100); Monocytes Absolute Auto 400 /uL (0-900); Monocytes Percent Auto 3.8 % (3-14); Neutrophils Absolute Auto 8400 /uL (1500-7000); Neutrophils Percent Auto 84.7 % (50-75); Platelet Count 187 X10^3/uL (150-400); Red Blood Cell Count 4.06 X10^6/uL (4.0-5.2); Red Cell Distribution Width 14.5 % (11.6-14.8); White Blood Cell Count 9.9 X10^3/uL (4.5-11.0)
--- NOTE | 2019-02-13 13:40 | DI.CT.S_ITS ---
PROCEDURE: CT ABDOMEN PELVIS W CON INDICATIONS: LLQ nd RUQ abd pain n/v/d TECHNIQUE: After the administration of intravenous contrast, 5 mm thick sections acquired from the diaphragm to the symphysis. 5 mm coronal and sagittal reformats were acquired. For radiation dose reduction, the following was used: automated exposure control, adjustment of mA and/or kV according to patient size. COMPARISON: [facility], CT, CT ABDOMEN PELVIS W CON, 01/11/2019, 10:17. [facility], CT, CT ABDOMEN PELVIS W CON, 10/27/2017, 12:19. [facility], CT, ABDOMEN/PELVIS WITH CONTRAST, 05/13/2017, 20:38. FINDINGS: Image quality: Excellent. ABDOMEN: Lung bases: There is a small left-sided pleural effusion seen. Sternotomy wires are partially seen. The heart size is upper limits of normal. Solid organs: Liver is normal in size and enhancement. Gallbladder has been removed. Biliary system is non dilated. Pancreas enhances normally. Spleen is normal in size and enhancement. No adrenal nodules. Kidneys demonstrate normal size and enhancement, without hydronephrosis. A 1.8 cm water density cyst can be seen on the right medially. Peritoneum and bowel: There is thickening of the murphy of the small bowel loops seen, particularly within the pelvis. No arelis colonic wall thickening can be seen. Diverticulosis is seen, without findings of active diverticulitis. no free air or significant air-fluid can be seen. Nodes and vessels: No retroperitoneal or mesenteric adenopathy by size criteria. Aorta and inferior vena cava are normal in size. Atherosclerotic calcification is noted. Miscellaneous: No ventral hernias. PELVIS: Genitourinary: Bladder wall thickness is normal. This patient is status post hysterectomy. No adnexal masses are seen. Miscellaneous: No inguinal hernias or adenopathy. Bones: No suspicious bony lesions. No vertebral body compression fractures. Bony changes are seen, particularly affecting the lumbar spine. Mild levoconvex scoliotic curvature is noted. IMPRESSION: Thickening of distal small bowel loops can be seen. This is similar to the prior CT. Please correlate with potential infectious or inflammatory causes, including Crohn's disease. Small left-sided pleural effusion noted, which is smaller in size than on the prior CT. Incidental note is made of: Sternotomy wires Cholecystectomy Simple appearing right renal cyst Hysterectomy Dictated by: Felix Lomeli M.D. on 02/13/2019 at 13:32 Approved by: Felix Lomeli M.D. on 02/13/2019 at 13:38
--- NOTE | 2019-02-13 13:43 | ED.NAVMDI ---
HPI - Nausea/Vomiting/Diarrhea <Magdalena SanchezRADHA - Last Filed: 02/13/19 17:46> General Chief complaint: Nausea/Vomiting/Diarrhea Stated complaint: Nausea,vomiting, diarrhea Time Seen by Provider: 02/13/19 13:20 Source: patient Mode of arrival: Ambulatory History of Present Illness HPI Narrative: 83-year-old female with a history of AFib, presents to the emergency department complaining of nausea, vomiting, diarrhea, and abdominal pain since yesterday. She states she has a lower diffuse abdominal pain and has not been able to stop vomiting since last night. She denies any blood in her vomit or diarrhea. Patient denies fevers, chills, dysuria, chest pain, shortness of breath, or other concerns. She denies any sick contacts. Patient arrives with her son. Related Data Home Medications Medication Instructions Recorded Confirmed Spacer: Inhaler Spacer Device 1 ea MISCELLANEOUS DIRECTED 10/27/17 01/07/19 atorvastatin 80 mg PO QPM 10/27/17 01/06/19 mupirocin 1 applic TOPICAL DIRECTED 12/03/17 01/07/19 nitroglycerin [Nitrostat] 0.4 mg SUBLINGUAL PRN PRN 12/03/17 01/07/19 Previous Rx's Medication Instructions Recorded Handicap Parking #1 ea 06/04/18 albuterol sulfate 90 mcg/actuation 2 puff INHALATION Q6H PRN #8 gram 09/22/18 aerosol inhaler metoprolol tartrate 50 mg tablet 25 mg PO BID #90 tab 10/13/18 losartan 50 mg tablet 50 mg PO BID #180 tab 10/25/18 pantoprazole 40 mg tablet,delayed 40 mg PO BID #60 tab 11/01/18 release ferrous sulfate 325 mg PO DAILY #60 tab 01/13/19 gabapentin [Neurontin] 300 mg PO TID #90 cap 01/13/19 ondansetron HCl 4 mg PO Q6H PRN #20 tab 02/13/19 hydrocodone 5 mg-acetaminophen 325 1 tab PO Q6H PRN #112 tab 02/15/19 mg tablet Allergies Allergy/AdvReac Type Severity Reaction Status Date / Time furosemide [FUROSEMIDE] Allergy Mild RASH Verified 01/06/19 10:37 sertraline [SERTRALINE] Allergy Mild FEELS Verified 01/06/19 10:37 DRUGGED lisinopril AdvReac Mild Cough Verified 01/06/19 10:37 Review of Systems <RADHA Greer - Last Filed: 02/13/19 17:46> Review of Systems Narrative: REVIEW OF SYSTEMS: GENERAL: Denies fever, chills, malaise, or wt. loss. HENT: No head trauma, sore throat, or dysphagia. EYES: No loss of vision, double vision, eye pain, or irritation. CARDIOVASCULAR: No chest pain, palpitations, or orthopnea. RESPIRATORY: No shortness of breath or cough. GASTROINTESTINAL: Complains of diffuse abdominal pain, see HPI GENITOURINARY: No flank pain, urinary incontinence, hesitancy, frequency, or dysuria. No vaginal discharge or dyspareunia. Denies concerns for STIs MUSCULOSKELETAL: No pain, weakness, or trauma. INTEGUMENTARY: No rash, lesions, or pruritus. NEURO: No numbness, tingling, memory loss, confusion, or headaches. PSYCH: No behavior or mood changes. 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) Asthma (Chronic) Breast cancer (Resolved ~2001) CAD (coronary artery disease) (Chronic) Cerebrovascular accident (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 right middle cerebral artery (Inactive 04/27/17) Cervical cancer, FIGO stage I (Chronic) Cholelithiasis (Chronic) Chronic back pain (Chronic) Developmental disorder (Chronic) Essential hypertension (Chronic 02/19/12) Fibrocystic breast disease (Chronic) GERD (gastroesophageal reflux disease) (Chronic) History of colon polyps (Resolved 02/19/12) History of left breast cancer (Acute ~2008) Hyperlipidemia (Chronic) IBS (irritable bowel syndrome) (Chronic) Measles (Resolved) Middle cerebral artery stenosis (Chronic ~10/2017) Obesity with body mass index (BMI) of 30.0 to 39.9 (Chronic 02/19/12) Osteoarthritis of knees, bilateral (Acute) Personal history of other malignant neoplasm of skin (Resolved 01/03/13) 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) Systolic congestive heart failure with reduced left ventricular function, NYHA class 2 (Chronic 10/26/10) Surgical History Anesthesia (Inactive) Status post arthroscopy Status post biopsy (~2014) Status post breast lumpectomy (~2008) Status post cholecystectomy Status post coronary artery bypass graft Status post hysterectomy (~2009) Social History household members: children Smoking Status: Never smoker alcohol intake: never Smoking Status: Never smoker alcohol intake frequency: holidays/special occasions only Substance Use Type: does not use Exam <RADHA Greer - Last Filed: 02/13/19 17:46> Initial Vital Signs Initial Vital Signs: Vital Signs Temperature 99.1 F 02/13/19 13:16 Pulse Rate 82 02/13/19 13:16 Respiratory Rate 19 02/13/19 13:16 Blood Pressure 176/83 H 02/13/19 13:16 Pulse Oximetry 95 02/13/19 13:16 PHYSICAL EXAMINATION: GENERAL: Answers questions promptly and appropriately. Vital signs noted. HENT: Normocephalic, atraumatic. Hearing intact. Oral mucosa is pink and moist. EYES: Conjunctiva pink, sclera white, no periorbital swelling. CARDIOVASCULAR: S1 and S2 sounds normal. Regular rate and rhythm, no murmurs, clicks, or bruits. No pedal edema. RESPIRATORY: Normal respiratory rate, trachea midline, airway patent. No stridor, nasal flaring or accessory muscle use. Lungs are clear in all chen without wheeze, rhonchi, or crackles. GASTROINTESTINAL: Bowel sounds normoactive. Abdomen is soft, slightly tender, no rebound tenderness. No organomegaly, no palpable masses. GENITALURINARY: No flank tenderness. MUSCULOSKELETAL: Normal gait and coordination. Equal tone and mass bilaterally. EXTREMITIES: CMS intact, no pedal edema. SKIN: Warm, dry, soft, appropriate color for ethnicity. No lesions, rashes, or wounds. NEURO: Alert and Oriented X 3. Good coordination. No ataxia, or sensory deficits, or cognitive issues. PSYCH: Appropriate affect and mood. <Brittnee Hatch DO - Last Filed: 02/16/19 08:03> Initial Vital Signs Initial Vital Signs: Vital Signs Temperature 99.1 F 02/13/19 13:16 Pulse Rate 82 02/13/19 13:16 Respiratory Rate 19 02/13/19 13:16 Blood Pressure 176/83 H 02/13/19 13:16 Pulse Oximetry 95 02/13/19 13:16 Course <Magdalena SanchezRADHA - Last Filed: 02/13/19 17:46> Course Course Narrative: Patient was given 8 mg of Zofran, Toradol, and 500 mL of fluid emergency department which improved her symptoms. Orders Ordered: Discontinued Medications Sodium Chloride (Normal Saline 0.9%) 500 mls @ 1,000 mls/hr IV BOLUS ONE Stop: 02/13/19 16:24 Last Infusion: 02/13/19 16:27 Dose: 0 mls/hr Documented by: Admin: 02/13/19 16:00 Dose: 1,000 mls/hr Documented by: KASSANDRA Ketorolac Tromethamine (Toradol) 15 mg IV NOW ONE Stop: 02/13/19 15:37 Last Admin: 02/13/19 15:51 Dose: 15 mg Documented by: KASSANDRA Ondansetron HCl (Zofran) 4 mg IV NOW ONE Stop: 02/13/19 14:30 Last Admin: 02/13/19 14:32 Dose: 4 mg Documented by: KASSANDRA Ondansetron HCl (Zofran) 4 mg IV NOW ONE Stop: 02/13/19 15:37 Last Admin: 02/13/19 15:51 Dose: 4 mg Documented by: KASSANDRA Consultations Consultation #1: Patient staffed with Dr. Hatch. Vital Signs Vital signs: Vital Signs - 8 hr 02/13/19 13:16 02/13/19 14:15 02/13/19 15:21 Temperature 99.1 F Pulse Rate 82 87 66 Respiratory Rate 19 14 17 Blood Pressure Blood Pressure [Left Arm] 176/83 H 153/80 H 175/63 H Pulse Oximetry 95 100 97 02/13/19 16:26 Temperature Pulse Rate 66 Respiratory Rate 20 Blood Pressure 174/80 H Blood Pressure [Left Arm] Pulse Oximetry 96 <Brittnee Hatch DO - Last Filed: 02/16/19 08:03> Orders Ordered: Discontinued Medications Sodium Chloride (Normal Saline 0.9%) 500 mls @ 1,000 mls/hr IV BOLUS ONE Stop: 02/13/19 16:24 Last Infusion: 02/13/19 16:27 Dose: 0 mls/hr Documented by: Admin: 02/13/19 16:00 Dose: 1,000 mls/hr Documented by: KASSANDRA Ketorolac Tromethamine (Toradol) 15 mg IV NOW ONE Stop: 02/13/19 15:37 Last Admin: 02/13/19 15:51 Dose: 15 mg Documented by: KASSANDRA Ondansetron HCl (Zofran) 4 mg IV NOW ONE Stop: 02/13/19 14:30 Last Admin: 02/13/19 14:32 Dose: 4 mg Documented by: KASSANDRA Ondansetron HCl (Zofran) 4 mg IV NOW ONE Stop: 02/13/19 15:37 Last Admin: 02/13/19 15:51 Dose: 4 mg Documented by: KASSANDRA Vital Signs Vital signs: Vital Signs - 8 hr 02/13/19 13:16 02/13/19 14:15 02/13/19 15:21 Temperature 99.1 F Pulse Rate 82 87 66 Respiratory Rate 19 14 17 Blood Pressure Blood Pressure [Left Arm] 176/83 H 153/80 H 175/63 H Pulse Oximetry 95 100 97 02/13/19 16:26 Temperature Pulse Rate 66 Respiratory Rate 20 Blood Pressure 174/80 H Blood Pressure [Left Arm] Pulse Oximetry 96 MDM - Nausea/Vomiting/Diarrhea <RADHA Greer - Last Filed: 02/13/19 17:46> Medical Records Attestation: I reviewed the patient's medical records. Lab Data Attestation: I reviewed the patient's lab results. Result diagrams: 02/13/19 13:30 02/13/19 13:30 Labs: Lab Results 02/13/19 02/13/19 02/13/19 Range/Units 13:30 13:30 13:35 WBC 9.9 (4.5-11.0) X10^3/uL RBC 4.06 (4.0-5.2) X10^6/uL Hgb 12.5 (12.0-16.0) g/dL Hct 38.4 (36-46) % MCV 94.5 (80-100) fL MCH 30.9 (26-34) PG MCHC 32.7 (30-36) % RDW 14.5 (11.6-14.8) % Plt Count 187 (150-400) X10^3/uL Neut % (Auto) 84.7 H (50-75) % Lymph % (Auto) 11.3 L (25-40) % [place] % (Auto) 3.8 (3-14) % Eos % (Auto) 0.0 L (2-4) % Baso % (Auto) 0.2 (0-2) % Neut # (Auto) 8400 H (0536-1785) /uL Lymph # (Auto) 1100 (5120-0789) /uL [place] # (Auto) 400 (0-900) /uL Eos # (Auto) 0 (0-450) /uL Baso # (Auto) 0 (0-100) /uL Sodium 139 (137-145) mmol/L Potassium 3.7 (3.4-5.1) mmol/L Chloride 102 (98-107) mmol/L Carbon Dioxide 29 (22-32) mmol/L BUN 9 (7-17) mg/dL Creatinine 0.70 (0.52-1.04) mg/dL Estimated GFR > 60.0 (>60) mL/min BUN/Creatinine Ratio 12.9 (6-22) Glucose 112 H (80-110) mg/dL Calcium 9.5 (8.4-10.2) mg/dL Total Bilirubin 1.0 (0.2-1.3) mg/dL AST 19 (14-36) IU/L ALT 9 (<35) IU/L Alkaline Phosphatase 98 (38-126) U/L Total Creatine Kinase < 20 L (30-135) U/L CK-MB (CK-2) TNP CK-MB (CK-2) Rel Index TNP Troponin I 0.017 (0.01-0.034) ng/mL Total Protein 7.2 (6.3-8.2) g/dL Albumin 4.0 (3.5-5.0) g/dL Globulin 3.2 (1.7-4.1) g/dL Albumin/Globulin Ratio 1.3 (1.0-2.8) Influenza A (RT-PCR) Flu a negative (NEGATIVE) Influenza B (RT-PCR) Flu b negative (NEGATIVE) Imaging Data CT scan - abdomen/pelvis: Radiologist's Impression: [address] [address] [address] Scan Report Signed Patient: Chana Garrido [facility]#: [id number] : 8Acct:[id number] Age/Sex: 83 / FDate of Service: 02/13/19 Loc: ED Accession Number: [id number] Procedure: CT abdomen pelvis w con Ordering Provider: Magdalena Sanchez PROCEDURE: CT ABDOMEN PELVIS W CON INDICATIONS: LLQ nd RUQ abd pain n/v/d TECHNIQUE: After the administration of intravenous contrast, 5 mm thick sections acquired from the diaphragm to the symphysis. 5 mm coronal and sagittal reformats were acquired. For radiation dose reduction, the following was used: automated exposure control, adjustment of mA and/or kV according to patient size. COMPARISON: [facility], CT, CT ABDOMEN PELVIS W CON, 01/11/2019, 10:17. [facility], CT, CT ABDOMEN PELVIS W CON, 10/27/2017, 12:19. [facility], CT, ABDOMEN/PELVIS WITH CONTRAST, 05/13/2017, 20:38. FINDINGS: Image quality: Excellent. ABDOMEN: Lung bases: There is a small left-sided pleural effusion seen. Sternotomy wires are partially seen. The heart size is upper limits of normal. Solid organs: Liver is normal in size and enhancement. Gallbladder has been removed. Biliary system is non dilated. Pancreas enhances normally. Spleen is normal in size and enhancement. No adrenal nodules. Kidneys demonstrate normal size and enhancement, without hydronephrosis. A 1.8 cm water density cyst can be seen on the right medially. Peritoneum and bowel: There is thickening of the murphy of the small bowel loops seen, particularly within the pelvis. No arelis colonic wall thickening can be seen. Diverticulosis is seen, without findings of active diverticulitis. no free air or significant air-fluid can be seen. Nodes and vessels: No retroperitoneal or mesenteric adenopathy by size criteria. Aorta and inferior vena cava are normal in size. Atherosclerotic calcification is noted. Miscellaneous: No ventral hernias. PELVIS: Genitourinary: Bladder wall thickness is normal. This patient is status post hysterectomy. No adnexal masses are seen. Miscellaneous: No inguinal hernias or adenopathy. Bones: No suspicious bony lesions. No vertebral body compression fractures. Bony changes are seen, particularly affecting the lumbar spine. Mild levoconvex scoliotic curvature is noted. IMPRESSION: Thickening of distal small bowel loops can be seen. This is similar to the prior CT. Please correlate with potential infectious or inflammatory causes, including Crohn's disease. Small left-sided pleural effusion noted, which is smaller in size than on the prior CT. Incidental note is made of: Sternotomy wires Cholecystectomy Simple appearing right renal cyst Hysterectomy Dictated by: Felix Lomeli M.D. on 02/13/2019 at 13:32 Approved by: Felix Lomeli M.D. on 02/13/2019 at 13:38 ECG Data Interpretation: EKG read by Nakita Yu. [facility] Narrative Medical decision making narrative: 83-year-old chronically ill female presents emergency department for new onset nausea vomiting and diarrhea over the past 24 hours. Labs are non-remarkable, CT shows continued thickening of distal small bowel loops that have been appearing over the past 2 months. Patient was hemodynamically stable, no vomiting during emergency department stay and improved symptoms after medication administration. Differential includes gastroenteritis which is most likely. Less likely appendicitis due to diffuse abdominal pain, no inflammation present on CT, no white count, no fever, and improved symptoms. Patient has had a cholecystectomy and hysterectomy eliminating other causes of abdominal pain. Due to chronic nature of thickening of distal bowel, she was referred to GI. Patient was prescribed ondansetron encouraged to drink many fluids at home. She is given strict ED precautions. Discussed with patient at length that she did not meet criteria for admission as her labs are improved from last visit. Patient and son verbalized understanding agreement with plan of care. <Brittnee Hatch, DO - Last Filed: 02/16/19 08:03> Lab Data Attestation: I reviewed the patient's lab results. Labs: Lab Results 02/13/19 02/13/19 02/13/19 Range/Units 13:30 13:30 13:35 WBC 9.9 (4.5-11.0) X10^3/uL RBC 4.06 (4.0-5.2) X10^6/uL Hgb 12.5 (12.0-16.0) g/dL Hct 38.4 (36-46) % MCV 94.5 (80-100) fL MCH 30.9 (26-34) PG MCHC 32.7 (30-36) % RDW 14.5 (11.6-14.8) % Plt Count 187 (150-400) X10^3/uL Neut % (Auto) 84.7 H (50-75) % Lymph % (Auto) 11.3 L (25-40) % [place] % (Auto) 3.8 (3-14) % Eos % (Auto) 0.0 L (2-4) % Baso % (Auto) 0.2 (0-2) % Neut # (Auto) 8400 H (5300-0876) /uL Lymph # (Auto) 1100 (7892-7501) /uL [place] # (Auto) 400 (0-900) /uL Eos # (Auto) 0 (0-450) /uL Baso # (Auto) 0 (0-100) /uL Sodium 139 (137-145) mmol/L Potassium 3.7 (3.4-5.1) mmol/L Chloride 102 (98-107) mmol/L Carbon Dioxide 29 (22-32) mmol/L BUN 9 (7-17) mg/dL Creatinine 0.70 (0.52-1.04) mg/dL Estimated GFR > 60.0 (>60) mL/min BUN/Creatinine Ratio 12.9 (6-22) Glucose 112 H (80-110) mg/dL Calcium 9.5 (8.4-10.2) mg/dL Total Bilirubin 1.0 (0.2-1.3) mg/dL AST 19 (14-36) IU/L ALT 9 (<35) IU/L Alkaline Phosphatase 98 (38-126) U/L Total Creatine Kinase < 20 L (30-135) U/L CK-MB (CK-2) TNP CK-MB (CK-2) Rel Index TNP Troponin I 0.017 (0.01-0.034) ng/mL Total Protein 7.2 (6.3-8.2) g/dL Albumin 4.0 (3.5-5.0) g/dL Globulin 3.2 (1.7-4.1) g/dL Albumin/Globulin Ratio 1.3 (1.0-2.8) Influenza A (RT-PCR) Flu a negative (NEGATIVE) Influenza B (RT-PCR) Flu b negative (NEGATIVE) ECG Data Attestation: I personally reviewed and interpreted this ECG as follows: Prior ECG tracings: available for review Interpretation: Atrial fibrillation with rate 82, QRS is 99 and QTC of 444. No acute ST changes. Nonspecific change. Patient does have prior EKGs from 01/01/19 which shows afib and similar ST segments. MDM Narrative Medical decision making narrative: Patient case was discussed with myself. Patient has had vomiting and diarrhea for the past 24 hours. Labs do not show major abnormalities. CT shows continued thickening of the distal small bowel loops that were noted on a prior CT scan about 2 months ago. Patient in between these 2 CT scans has not been having continuous symptoms. Discussed potential differential. Patient does need to have follow-up Um regarding the chronic thickening of the distal bowel and was referred to GI. She may require scope or video evaluation or potentially further imaging to rule out cancerous type cause of thickening vs ulcerative colitis, Crohn's or other potential causes. This was relayed to the patient. Discharge Plan Departure Patient Disposition: Home Clinical Impression: Gastroenteritis Abdominal pain Qualifiers: Abdominal location: generalized Qualified Code(s): R10.84 - Generalized abdominal pain Discharge Date/Time: 02/13/19 16:26 Instructions: DI for Viral Gastroenteritis -- Adult Activity Restrictions/Additional Instructions: Thank you for entrusting me with your care today. As discussed, your symptoms are most likely caused by gastroenteritis. I prescribed you some nausea medication, please use this for continued nausea and vomiting. Your CT shows some inflammation in your small-bowel. I recommend following up with a GI provider as this has been ongoing for over a month. Your labs are non-remarkable, please return emergency department if he develops worsening symptoms such as uncontrollable vomiting, high fevers, chest pain, shortness of breath, or other concerns. Prescriptions: New ondansetron HCl 4 mg tablet 4 mg PO Q6H PRN (Reason: nausea and vomiting) Qty: 20 RF: 0 No Action albuterol sulfate [Proventil HFA] 90 mcg/actuation HFA aerosol inhaler 2 puff INHALATION Q6H PRN (Reason: shortness of breath or wheezing) Qty: 8 RF: 0 metoprolol tartrate 50 mg tablet 25 mg PO BID Qty: 90 RF: 3 pantoprazole 40 mg tablet,delayed release (DR/EC) 40 mg PO BID Qty: 60 RF: 0 hydrocodone-acetaminophen 5-325 mg tablet 1 tab PO Q6H PRN (Reason: pain) Qty: 112 RF: 0 (DME) Handicap Parking Qty: 1 RF: 0 losartan 50 mg tablet 50 mg PO BID Qty: 180 RF: 3 mupirocin 2 % ointment 1 applic Topical DIRECTED RF: 0 nitroglycerin [Nitrostat] 0.4 MG tablet, sublingual 0.4 mg Sublingual PRN PRN (Reason: Chest Pain) RF: 0 atorvastatin 80 mg tablet 80 mg PO QPM RF: 0 Spacer: Inhaler Spacer Device 1 ea miscellaneous DIRECTED RF: 0 ferrous sulfate 325 mg (65 mg iron) Tablet 325 mg PO DAILY Qty: 60 RF: 2 gabapentin [Neurontin] 300 mg Capsule 300 mg PO TID Qty: 90 RF: 5 Referrals: Heath Krishnan MD [Non-Staff] - (Small-bowel inflammation) Heather Tapia DO [Primary Care Provider] -
[2019-02-13 13:46] LABS: Alanine Aminotransferase 9 IU/L (<35); Albumin Globulin Ratio 1.3 (1.0-2.8); Alkaline Phosphatase 98 U/L (38-126); Aspartate Aminotransferase 19 IU/L (14-36); BUN Creatinine Ratio 12.9 (6-22); Blood Urea Nitrogen 9 mg/dL (7-17); Calcium 9.5 mg/dL (8.4-10.2); Carbon Dioxide 29 mmol/L (22-32); Chloride 102 mmol/L (98-107); Creatine Kinase < 20 U/L (30-135); Estimated Glomerular Filt Rate > 60.0 mL/min (>60); Globulin 3.2 g/dL (1.7-4.1); Glucose 112 mg/dL (80-110); HEMOLYSIS < 15 (0-50); Potassium 3.7 mmol/L (3.4-5.1); Sodium 139 mmol/L (137-145); Total Protein 7.2 g/dL (6.3-8.2)
[2019-02-13 13:58] LABS: Troponin I 0.017 ng/mL (0.01-0.034)
[2019-02-13 14:11] LABS: Influenza A - CEPHEID Flu A NEGATIVE (NEGATIVE); Influenza B - CEPHEID Flu B NEGATIVE (NEGATIVE)
[2019-02-13 14:15] VITALS: BP 153/80; PULSE 87; RESP 14; O2SAT 100
[2019-02-13] MEDS: ONDANSETRON 4 MG/2 ML INJ IV ×2 (14:32→15:51)
[2019-02-13 15:21] VITALS: BP 175/63; PULSE 66; RESP 17; O2SAT 97
[2019-02-13] MEDS: KETOROLAC 60 MG/2 ML VIAL 15 MG IV (15:51)
[2019-02-13] MEDS: SODIUM CHLORIDE 0.9% 500 ML 1000 ML IV (16:00)
[2019-02-13 16:26] VITALS: BP 174/80; PULSE 66; RESP 20; O2SAT 96
== END 2019-02-13 16:26 | disposition home or self-care (01) ==
PROVIDERS: Emergency Medicine; Emergency Provider Nurse Practitioner; PCP Family Medicine
DX: R10.84 Generalized abdominal pain (principal); R11.2 Nausea with vomiting, unspecified; R19.7 Diarrhea, unspecified; I48.91 Unspecified atrial fibrillation
CPT/HCPCS: 36415; 74177; 80053; 82550; 84484; 85025; 87502; 93005; 96374; 96375; 96376; 99284; 99285; J1885; J2405; Q9967

== ENCOUNTER 2019-04-18 16:22 | Emergency (ER) | payer MEDICARE, OTHER, SELFPAY ==
[2019-04-18 16:30] VITALS: BP 168/94; PULSE 57; RESP 20; TEMP 36.3; O2SAT 98; BMI 23.5
--- NOTE | 2019-04-18 16:43 | ED.GENADULT ---
HPI - General Adult <Janak Rincon DO - Last Filed: 04/20/19 07:01> General Chief complaint: Abdominal Pain Stated complaint: Stomach issues, sent over from the Dr Time Seen by Provider: 04/18/19 16:39 Source: patient Mode of arrival: Ambulatory Limitations: no limitations History of Present Illness HPI narrative: Patient is an 83-year-old female. Sent over to the emergency department from her primary doctor's office for concern of generalized abdominal pain and vomiting. From the report given by the primary doctor and also from the patient does appear that she has had abdominal pain for some time now. She has seen GI in the past. She does have a history of breast cancer. Unsure if her symptoms today are similar to prior abdominal pain or new however the vomiting does appear to be new. Has not tried anything for the symptoms prior to arrival. She initially described the pain as the left side of her abdomen but had another point pointed to the right side of her abdomen for where the pain is. She does state that it comes and goes. At the time of my evaluation patient denied any nausea past Related Data Home Medications Medication Instructions Recorded Confirmed Spacer: Inhaler Spacer Device 1 ea MISCELLANEOUS DIRECTED 10/27/17 04/18/19 mupirocin 1 applic TOPICAL DIRECTED 12/03/17 04/18/19 nitroglycerin [Nitrostat] 0.4 mg SUBLINGUAL PRN PRN 12/03/17 04/18/19 Previous Rx's Medication Instructions Recorded Handicap Parking #1 ea 06/04/18 metoprolol tartrate 50 mg tablet 25 mg PO BID #90 tab 10/13/18 losartan 50 mg tablet 50 mg PO BID #180 tab 10/25/18 ferrous sulfate 325 mg PO DAILY #60 tab 01/13/19 gabapentin [Neurontin] 300 mg PO TID #90 cap 01/13/19 ondansetron HCl 4 mg PO Q6H PRN #20 tab 02/13/19 albuterol sulfate 90 mcg/actuation 2 puff INHALATION Q6H PRN #8 gram 02/22/19 aerosol inhaler pantoprazole 40 mg tablet,delayed 40 mg PO BID #60 tab 02/22/19 release diazepam 5 mg tablet See Rx Instructions PO TID PRN #90 02/23/19 tab inhalational spacing device #1 each 02/06/20 hydrocodone 5 mg-acetaminophen 325 1 tab PO Q6H PRN #112 tab 04/18/19 mg tablet Allergies Allergy/AdvReac Type Severity Reaction Status Date / Time furosemide [FUROSEMIDE] Allergy Mild RASH Verified 04/18/19 16:29 sertraline [SERTRALINE] Allergy Mild FEELS Verified 04/18/19 16:29 DRUGGED lisinopril AdvReac Mild Cough Verified 04/18/19 16:29 Review of Systems <Janak Rincon DO - Last Filed: 04/20/19 07:01> Constitutional Constitutional: Denies fever(s) Cardiovascular Cardiovascular: Denies chest pain and Denies dyspnea Respiratory Respiratory: Denies dyspnea Gastrointestinal Gastrointestinal: Reports abdominal pain, Reports nausea and Reports vomiting Genitourinary Genitourinary: Denies dysuria Musculoskeletal Musculoskeletal: Denies myalgias and Denies arthralgias Integumentary/Breasts Skin/Breast: Denies lesions and Denies rash Neurologic Neurologic: Denies behavioral changes Psychiatric Psychiatric: Denies behavioral changes Hematologic/Lymphatic Hematologic/Lymphatic: Denies easy bleeding and Denies easy bruising Patient History <Janak Rincon DO - Last Filed: 04/20/19 07:01> Medical History Anxiety (Chronic) 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) Asthma (Chronic) Breast cancer (Resolved ~2001) CAD (coronary artery disease) (Chronic) Cerebrovascular accident (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 right middle cerebral artery (Inactive 04/27/17) Cervical cancer, FIGO stage I (Chronic) Cholelithiasis (Chronic) Chronic back pain (Chronic) Developmental disorder (Chronic) Essential hypertension (Chronic 02/19/12) Fibrocystic breast disease (Chronic) GERD (gastroesophageal reflux disease) (Chronic) History of colon polyps (Resolved 02/19/12) History of left breast cancer (Acute ~2008) Hyperlipidemia (Chronic) IBS (irritable bowel syndrome) (Chronic) Measles (Resolved) Middle cerebral artery stenosis (Chronic ~10/2017) Obesity with body mass index (BMI) of 30.0 to 39.9 (Chronic 02/19/12) Osteoarthritis of knees, bilateral (Acute) Personal history of other malignant neoplasm of skin (Resolved 02/19/12) 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) Systolic congestive heart failure with reduced left ventricular function, NYHA class 2 (Chronic 10/26/10) Social History household members: children Smoking Status: Never smoker alcohol intake: never Smoking Status: Never smoker alcohol intake frequency: holidays/special occasions only Substance Use Type: does not use Exam <Janak Rincon DO - Last Filed: 04/20/19 07:01> Initial Vital Signs Initial Vital Signs: Vital Signs Temperature 97.4 F L 04/18/19 16:30 Pulse Rate 57 L 04/18/19 16:30 Respiratory Rate 20 04/18/19 16:30 Blood Pressure 168/94 H 04/18/19 16:30 Pulse Oximetry 98 04/18/19 16:30 Const General: cooperative Limitations: mental status not altered HENMT Head: normal to inspection and normocephalic Resp Effort & Inspection: normal respiratory effort Auscultation: clear to auscultation bilaterally Cardio Rate: regular rate Rhythm: regular rhythm GI Inspection: non-distended Palpation: soft and tender (Diffusely tender) Skin Lesions: no lesions Rashes: no rashes Neuro General: alert and awake Cognition: normal cognition Speech: speech normal Extrem General: normal to inspection and capillary refill normal Psych Appearance: grossly normal and well kempt <Natan Lord MD - Last Filed: 04/18/19 21:42> Initial Vital Signs Initial Vital Signs: Vital Signs Temperature 97.4 F L 04/18/19 16:30 Pulse Rate 57 L 04/18/19 16:30 Respiratory Rate 20 04/18/19 16:30 Blood Pressure 168/94 H 04/18/19 16:30 Pulse Oximetry 98 04/18/19 16:30 Course <Janak Rincon DO - Last Filed: 04/20/19 07:01> Orders Ordered: Discontinued Medications Al Hydrox/Mg Hydrox/Simethicone 20 ml/ Lidocaine HCl 15 ml 0 ml PO NOW ONE Stop: 04/18/19 19:03 Last Admin: 04/18/19 19:49 Dose: 35 ml Documented by: TONY Sodium Chloride (Normal Saline 0.9%) 1,000 mls @ 150 mls/hr IV CONT MARKIE Last Admin: 04/18/19 17:53 Dose: 150 mls/hr Documented by: TONY Losartan Potassium (Cozaar) 50 mg PO NOW ONE Stop: 04/18/19 20:02 Last Admin: 04/18/19 20:29 Dose: 50 mg Documented by: GABE Metoprolol Tartrate (Lopressor) 50 mg PO NOW ONE Stop: 04/18/19 20:02 Last Admin: 04/18/19 20:28 Dose: 50 mg Documented by: GABE Pantoprazole Sodium (Protonix) 40 mg IV NOW ONE Stop: 04/18/19 19:03 Last Admin: 04/18/19 19:50 Dose: 40 mg Documented by: TONY Vital Signs Vital signs: Vital Signs - 8 hr 04/18/19 16:30 04/18/19 18:15 04/18/19 18:20 Temperature 97.4 F L Pulse Rate 57 L 64 64 Respiratory Rate 20 20 20 Blood Pressure 168/94 H Blood Pressure [Right Arm] 206/100 H 206/100 H Pulse Oximetry 98 91 91 04/18/19 20:29 04/18/19 20:30 04/18/19 21:16 Temperature Pulse Rate 63 73 65 Respiratory Rate 16 16 Blood Pressure 189/128 H Blood Pressure [Right Arm] 214/112 H 189/89 H Pulse Oximetry 98 98 <Natan Lord MD - Last Filed: 04/18/19 21:42> Course Course Narrative: Care was assumed from Dr. Rincon at change of shift. Dr. Rincon's evaluation has been reviewed. I evaluated the patient myself, she has no chest pain or dyspnea. She has abdominal pain for in apparent prolonged period of time. She can't tell me exactly along. On exam she has epigastric and symptoms abdominal pain, but no distension or guarding. No masses. Bowel sounds are normal. She has no back pain. CT was evaluated. CT suggest gastritis. She also has diverticulosis without evidence of diverticulitis. She seemed to have urinary retention here in the ER, a catheter was placed. Less than 300 mL came out. The patient tells me she can't hold her urine throughout the night, but generally has a large amount of urine out 1st thing in the morning. The Roberts will be removed prior to discharge. She missed morning medications, she is hypertensive with systolic greater than 200. She denies visual changes, headache, chest pain or dyspnea. She was given her p.m. doses of metoprolol and losartan. With stomach pain I did give her a GI cocktail which seemed to help the pain. She already takes Protonix at home. She also defined insomnia. She had a stroke, and has had insomnia since having the stroke. She has not notified her PCM of this issue. I have discussed the clinical issues noted above with the patient. I advised follow-up with her PCM regarding gastritis/abdominal pain, hypertension management, and insomnia. Orders Ordered: Discontinued Medications Al Hydrox/Mg Hydrox/Simethicone 20 ml/ Lidocaine HCl 15 ml 0 ml PO NOW ONE Stop: 04/18/19 19:03 Last Admin: 04/18/19 19:49 Dose: 35 ml Documented by: TONY Sodium Chloride (Normal Saline 0.9%) 1,000 mls @ 150 mls/hr IV CONT MARKIE Last Admin: 04/18/19 17:53 Dose: 150 mls/hr Documented by: TONY Losartan Potassium (Cozaar) 50 mg PO NOW ONE Stop: 04/18/19 20:02 Last Admin: 04/18/19 20:29 Dose: 50 mg Documented by: GABE Metoprolol Tartrate (Lopressor) 50 mg PO NOW ONE Stop: 04/18/19 20:02 Last Admin: 04/18/19 20:28 Dose: 50 mg Documented by: GABE Pantoprazole Sodium (Protonix) 40 mg IV NOW ONE Stop: 04/18/19 19:03 Last Admin: 04/18/19 19:50 Dose: 40 mg Documented by: TONY Vital Signs Vital signs: Vital Signs - 8 hr 04/18/19 16:30 04/18/19 18:15 04/18/19 18:20 Temperature 97.4 F L Pulse Rate 57 L 64 64 Respiratory Rate 20 20 20 Blood Pressure 168/94 H Blood Pressure [Right Arm] 206/100 H 206/100 H Pulse Oximetry 98 91 91 04/18/19 20:29 04/18/19 20:30 04/18/19 21:16 Temperature Pulse Rate 63 73 65 Respiratory Rate 16 16 Blood Pressure 189/128 H Blood Pressure [Right Arm] 214/112 H 189/89 H Pulse Oximetry 98 98 Medical Decision Making <Janak Rincon, DO - Last Filed: 04/20/19 07:01> Medical Records Medical records reviewed: Yes I reviewed the patient's medical records. Lab Data Lab results reviewed: Yes I reviewed the patient's lab results. Result diagrams: 04/18/19 17:30 04/18/19 17:30 Labs: Lab Results 04/18/19 04/18/19 04/18/19 Range/Units 17:30 17:30 17:30 WBC 4.8 (4.5-11.0) X10^3/uL RBC 4.28 (4.0-5.2) X10^6/uL Hgb 12.9 (12.0-16.0) g/dL Hct 39.4 (36-46) % MCV 91.9 (80-100) fL MCH 30.2 (26-34) PG MCHC 32.8 (30-36) % RDW 14.9 H (11.6-14.8) % Plt Count 237 (150-400) X10^3/uL Neut % (Auto) 62.4 (50-75) % Lymph % (Auto) 28.9 (25-40) % [place] % (Auto) 7.3 (3-14) % Eos % (Auto) 1.1 L (2-4) % Baso % (Auto) 0.3 (0-2) % Neut # (Auto) 3000 (2063-1214) /uL Lymph # (Auto) 1400 (5243-4381) /uL [place] # (Auto) 400 (0-900) /uL Eos # (Auto) 100 (0-450) /uL Baso # (Auto) 0 (0-100) /uL Sodium 143 (137-145) mmol/L Potassium 3.7 (3.4-5.1) mmol/L Chloride 105 (98-107) mmol/L Carbon Dioxide 32 (22-32) mmol/L BUN 6 L (7-17) mg/dL Creatinine 0.70 (0.52-1.04) mg/dL Estimated GFR > 60.0 (>60) mL/min BUN/Creatinine Ratio 8.6 (6-22) Glucose 100 (80-110) mg/dL Lactate 1.0 (0.7-2.1) mmol/L Calcium 9.4 (8.4-10.2) mg/dL Total Bilirubin 0.6 (0.2-1.3) mg/dL AST 17 (14-36) IU/L ALT 6 (<35) IU/L Alkaline Phosphatase 113 (38-126) U/L Total Protein 7.5 (6.3-8.2) g/dL Albumin 3.9 (3.5-5.0) g/dL Globulin 3.6 (1.7-4.1) g/dL Albumin/Globulin Ratio 1.1 (1.0-2.8) Lipase 25 (23-300) U/L Urine Dip Bedside Urine Glucose Negative Bedside Urine Bilirubin - Negative Bedside Urine Ketone - Negative Urine Specific [place] 1.010 Bedside Urine Occult Blood - Negative Bedside Urine pH 6.0 Bedside Urine Protein - Negative Bedside Urine Urobilinogen - Negative Bedside Urine Nitrite - Negative Bedside Urine Leukocytes - Negative Esterase Point of care testing: Urine Dip Bedside Urine Glucose Negative Bedside Urine Bilirubin - Negative Bedside Urine Ketone - Negative Urine Specific [place] 1.010 Bedside Urine Occult Blood - Negative Bedside Urine pH 6.0 Bedside Urine Protein - Negative Bedside Urine Urobilinogen - Negative Bedside Urine Nitrite - Negative Bedside Urine Leukocytes - Negative Esterase MDM Narrative Medical decision making narrative: Upon arrival patient stated that she was not nauseous. She has not vomited since arrival here to the ER. She did have diffuse abdominal tenderness. Unsure if this is new however given the severity of the pain that she had with palpation will obtain a CT scan. Labs pending and CT scan pending. Care turned over to Dr. Lord at change of shift follow-up and ultimate disposition. <Natan Lord MD - Last Filed: 04/18/19 21:42> Lab Data Labs: Lab Results 04/18/19 04/18/19 04/18/19 Range/Units 17:30 17:30 17:30 WBC 4.8 (4.5-11.0) X10^3/uL RBC 4.28 (4.0-5.2) X10^6/uL Hgb 12.9 (12.0-16.0) g/dL Hct 39.4 (36-46) % MCV 91.9 (80-100) fL MCH 30.2 (26-34) PG MCHC 32.8 (30-36) % RDW 14.9 H (11.6-14.8) % Plt Count 237 (150-400) X10^3/uL Neut % (Auto) 62.4 (50-75) % Lymph % (Auto) 28.9 (25-40) % [place] % (Auto) 7.3 (3-14) % Eos % (Auto) 1.1 L (2-4) % Baso % (Auto) 0.3 (0-2) % Neut # (Auto) 3000 (7126-4823) /uL Lymph # (Auto) 1400 (4747-2324) /uL [place] # (Auto) 400 (0-900) /uL Eos # (Auto) 100 (0-450) /uL Baso # (Auto) 0 (0-100) /uL Sodium 143 (137-145) mmol/L Potassium 3.7 (3.4-5.1) mmol/L Chloride 105 (98-107) mmol/L Carbon Dioxide 32 (22-32) mmol/L BUN 6 L (7-17) mg/dL Creatinine 0.70 (0.52-1.04) mg/dL Estimated GFR > 60.0 (>60) mL/min BUN/Creatinine Ratio 8.6 (6-22) Glucose 100 (80-110) mg/dL Lactate 1.0 (0.7-2.1) mmol/L Calcium 9.4 (8.4-10.2) mg/dL Total Bilirubin 0.6 (0.2-1.3) mg/dL AST 17 (14-36) IU/L ALT 6 (<35) IU/L Alkaline Phosphatase 113 (38-126) U/L Total Protein 7.5 (6.3-8.2) g/dL Albumin 3.9 (3.5-5.0) g/dL Globulin 3.6 (1.7-4.1) g/dL Albumin/Globulin Ratio 1.1 (1.0-2.8) Lipase 25 (23-300) U/L Urine Dip Bedside Urine Glucose Negative Bedside Urine Bilirubin - Negative Bedside Urine Ketone - Negative Urine Specific [place] 1.010 Bedside Urine Occult Blood - Negative Bedside Urine pH 6.0 Bedside Urine Protein - Negative Bedside Urine Urobilinogen - Negative Bedside Urine Nitrite - Negative Bedside Urine Leukocytes - Negative Esterase Point of care testing: Urine Dip Bedside Urine Glucose Negative Bedside Urine Bilirubin - Negative Bedside Urine Ketone - Negative Urine Specific [place] 1.010 Bedside Urine Occult Blood - Negative Bedside Urine pH 6.0 Bedside Urine Protein - Negative Bedside Urine Urobilinogen - Negative Bedside Urine Nitrite - Negative Bedside Urine Leukocytes - Negative Esterase Imaging Data CT scan - abdomen/pelvis: Radiologist's Impression: 151 Natan Lord MD Find Patient Imaging - Chana Garrido S 83 F 1935 ACTIVITY DATE EXAM STATUS AUTHOR 04/18/19 16:45 Signed [facility] [address] [address] Scan Report Signed Patient: Chana Garrido SMR#: [id number] : [id number]:[id number] Age/Sex: 83 / FDate of Service: 04/18/19 Loc: ED Accession Number: [id number] Procedure: CT abdomen pelvis w con Ordering Provider: Janak Rincon D.O. PROCEDURE: CT ABDOMEN PELVIS W CON INDICATIONS: Generalized abdominal pain with vomiting TECHNIQUE: After the administration of intravenous contrast, 5 mm thick sections acquired from the diaphragm to the symphysis. 5 mm coronal and sagittal reformats were acquired. For radiation dose reduction, the following was used: automated exposure control, adjustment of mA and/or kV according to patient size. COMPARISON: [facility], CT, CT ABDOMEN PELVIS W CON, 02/13/2019, 13:56. FINDINGS: Image quality: Excellent. ABDOMEN: Lung bases: Small left pleural effusion is seen. Emphysematous changes are noted in bilateral lung bases. Median sternotomy wires are noted. Heart size is mildly enlarged, moderate amount of atherosclerotic calcifications are seen. No pericardial effusion. Solid organs: Liver is normal in size and enhancement. Gallbladder is surgically absent. Biliary system is non dilated. Pancreas enhances normally. Spleen is normal in size and enhancement. No adrenal nodules. Kidneys demonstrate normal size and enhancement, without hydronephrosis. Peritoneum and bowel: There is no evidence of bowel obstruction. Suggestion of gastric wall thickening is noted, which may be due to underdistention. Gastritis cannot be excluded. Mild fecal stasis in the colon is seen. Sigmoid diverticulosis is noted with no definite CT evidence of acute diverticulitis. No peritoneal free air. Trace amount of free fluid in lower pelvis is seen. Nodes and vessels: No retroperitoneal or mesenteric adenopathy by size criteria. Aorta and inferior vena cava are normal in size. Miscellaneous: No ventral hernias. PELVIS: Genitourinary: Bladder wall thickness is normal. Miscellaneous: No inguinal hernias or adenopathy. Bones: No suspicious bony lesions. No vertebral body compression fractures. Osteoarthritic changes in bony pelvis is seen. Degenerative disc disease throughout lumbar spine is noted. IMPRESSION: 1. There is suggestion of gastric wall thickening which may represent infectious or inflammatory gastritis. Sigmoid diverticulosis with no CT evidence of acute diverticulitis. No free fluid. Trace amount of pelvic free fluid. 2. Small left pleural effusion with left basilar atelectasis. COPD. 3. Prior cholecystectomy. Dictated by: Yossi Daigle M.D. on 04/18/2019 at 18:41 Approved by: Yossi Daigle M.D. on 04/18/2019 at 18:50 ECG Data Interpretation: Discharge Plan Departure Patient Disposition: Home Clinical Impression: Diverticulosis Gastritis Qualifiers: Gastritis type: unspecified gastritis Chronicity: chronic Gastritis bleeding: without bleeding Qualified Code(s): K29.50 - Unspecified chronic gastritis without bleeding Hypertension Qualifiers: Hypertension type: essential hypertension Qualified Code(s): I10 - Essential (primary) hypertension Insomnia Qualifiers: Insomnia type: due to medical condition Qualified Code(s): G47.01 - Insomnia due to medical condition Discharge Date/Time: 04/18/19 21:43 Instructions: Insomnia, DI for Gastritis Activity Restrictions/Additional Instructions: Continue your current medications. Follow-up with your doctor to review medications for his stomach, your blood pressure medications, and talk to your doctor about your issues with sleep. Prescriptions: No Action metoprolol tartrate 50 mg tablet 25 mg PO BID Qty: 90 RF: 3 pantoprazole 40 mg tablet,delayed release (DR/EC) 40 mg PO BID Qty: 60 RF: 0 albuterol sulfate [Proventil HFA] 90 mcg/actuation HFA aerosol inhaler 2 puff INHALATION Q6H PRN (Reason: shortness of breath or wheezing) Qty: 8 RF: 0 diazepam 5 mg tablet See Rx Instructions PO TID PRN (Reason: muscle spasm) Qty: 90 RF: 0 (DME) Aerochamber MV Spacer See Rx Instructions .ROUTE .MEDSUPPLY Qty: 1 RF: 0 (DME) Handicap Parking Qty: 1 RF: 0 losartan 50 mg tablet 50 mg PO BID Qty: 180 RF: 3 hydrocodone-acetaminophen 5-325 mg tablet 1 tab PO Q6H PRN (Reason: pain) Qty: 112 RF: 0 mupirocin 2 % ointment 1 applic Topical DIRECTED RF: 0 nitroglycerin [Nitrostat] 0.4 MG tablet, sublingual 0.4 mg Sublingual PRN PRN (Reason: Chest Pain) RF: 0 Spacer: Inhaler Spacer Device 1 ea miscellaneous DIRECTED RF: 0 ferrous sulfate 325 mg (65 mg iron) Tablet 325 mg PO DAILY Qty: 60 RF: 2 gabapentin [Neurontin] 300 mg Capsule 300 mg PO TID Qty: 90 RF: 5 ondansetron HCl 4 mg tablet 4 mg PO Q6H PRN (Reason: nausea and vomiting) Qty: 20 RF: 0 Referrals: Heather Tapia DO [Primary Care Provider] -
--- NOTE | 2019-04-18 17:05 | PC.NURSE ---
Two IV insertion attempts made. Dr. Rincon aware that pt doesn't have access at this time.
[2019-04-18 17:43] LABS: Add Manual Diff / Slide Review NO; Basophils Absolute Auto 0 /uL (0-100); Basophils Percent Auto 0.3 % (0-2); Eosinophils Absolute Auto 100 /uL (0-450); Eosinophils Percent Auto 1.1 % (2-4); Hematocrit 39.4 % (36-46); Hemoglobin 12.9 g/dL (12.0-16.0); Lymphocytes Absolute Auto 1400 /uL (1100-4500); Lymphocytes Percent Auto 28.9 % (25-40); Mean Corpuscular HGB Conc 32.8 % (30-36); Mean Corpuscular Hemoglobin 30.2 PG (26-34); Mean Corpuscular Volume 91.9 fL (80-100); Monocytes Absolute Auto 400 /uL (0-900); Monocytes Percent Auto 7.3 % (3-14); Neutrophils Absolute Auto 3000 /uL (1500-7000); Neutrophils Percent Auto 62.4 % (50-75); Platelet Count 237 X10^3/uL (150-400); Red Blood Cell Count 4.28 X10^6/uL (4.0-5.2); Red Cell Distribution Width 14.9 % (11.6-14.8); White Blood Cell Count 4.8 X10^3/uL (4.5-11.0)
[2019-04-18] MEDS: SODIUM CHLORIDE 0.9% 1,000 ML 150 ML IV (17:53)
[2019-04-18 18:00] LABS: Alanine Aminotransferase 6 IU/L (<35); Albumin 3.9 g/dL (3.5-5.0); Albumin Globulin Ratio 1.1 (1.0-2.8); Alkaline Phosphatase 113 U/L (38-126); Aspartate Aminotransferase 17 IU/L (14-36); BUN Creatinine Ratio 8.6 (6-22); Bilirubin Total 0.6 mg/dL (0.2-1.3); Blood Urea Nitrogen 6 mg/dL (7-17); Calcium 9.4 mg/dL (8.4-10.2); Carbon Dioxide 32 mmol/L (22-32); Chloride 105 mmol/L (98-107); Estimated Glomerular Filt Rate > 60.0 mL/min (>60); Globulin 3.6 g/dL (1.7-4.1); Glucose 100 mg/dL (80-110); HEMOLYSIS 19 (0-50); Lipase 25 U/L (23-300); Potassium 3.7 mmol/L (3.4-5.1); Sodium 143 mmol/L (137-145); Total Protein 7.5 g/dL (6.3-8.2)
[2019-04-18 18:15] VITALS: BP 206/100; PULSE 64; RESP 20; O2SAT 91
[2019-04-18 18:20] VITALS: BP 206/100; PULSE 64; RESP 20; O2SAT 91
[2019-04-18] MEDS: MAG HYDROX/ALUMINUM/SIMETH SUS 20 ML, LIDOCAINE VISCOUS 2% 15 ML PO (19:49)
[2019-04-18] MEDS: PANTOPRAZOLE 40 MG VIAL IV (19:50)
[2019-04-18] MEDS: METOPROLOL IR 25 MG TABLET 50 MG PO (20:28)
[2019-04-18 20:29] VITALS: BP 189/128; PULSE 63
[2019-04-18] MEDS: LOSARTAN 50 MG TABLET PO (20:29)
[2019-04-18 20:30] VITALS: BP 214/112; PULSE 73; RESP 16; O2SAT 98
[2019-04-18 21:16] VITALS: BP 189/89; PULSE 65; RESP 16; O2SAT 98
--- NOTE | 2019-05-05 13:54 | PC.NURSE ---
Late entry: IV NS 150 mL/hr stopped at 2130 hrs.
== END 2019-04-18 21:43 | disposition home or self-care (01) ==
PROVIDERS: Emergency Medicine; Emergency Provider Emergency Medicine; PCP Family Medicine
DX: K57.90 Diverticulosis of intestine, part unspecified, without perforation or abscess without bleeding (principal); K29.50 Unspecified chronic gastritis without bleeding; I10 Essential (primary) hypertension; G47.01 Insomnia due to medical condition; R11.2 Nausea with vomiting, unspecified
CPT/HCPCS: 36415; 74177; 80053; 81003; 83605; 83690; 85025; 96361; 96374; 99284; C9113

== ENCOUNTER → 2019-12-26 10:55 | Outpatient (CLI) | payer MEDICARE, OTHER, SELFPAY ==
[2019-12-26 13:00] LABS: Add Manual Diff / Slide Review NO; Basophils Absolute Auto 0 /uL (0-100); Basophils Percent Auto 0.8 % (0-2); Eosinophils Absolute Auto 100 /uL (0-450); Eosinophils Percent Auto 2.2 % (2-4); Hematocrit 38.3 % (36-46); Hemoglobin 12.4 g/dL (12.0-16.0); Lymphocytes Absolute Auto 1000 /uL (1100-4500); Lymphocytes Percent Auto 19.3 % (25-40); Mean Corpuscular HGB Conc 32.5 % (30-36); Mean Corpuscular Hemoglobin 30.5 PG (26-34); Monocytes Absolute Auto 300 /uL (0-900); Monocytes Percent Auto 5.4 % (3-14); Neutrophils Absolute Auto 3900 /uL (1500-7000); Neutrophils Percent Auto 72.3 % (50-75); Platelet Count 229 X10^3/uL (150-400); Red Blood Cell Count 4.07 X10^6/uL (4.0-5.2); Red Cell Distribution Width 14.7 % (11.6-14.8); White Blood Cell Count 5.4 X10^3/uL (4.5-11.0)
[2019-12-26 13:24] LABS: Alanine Aminotransferase 14 IU/L (<35); Albumin 4.1 g/dL (3.5-5.0); Albumin Globulin Ratio 1.2 (1.0-2.8); Alkaline Phosphatase 120 U/L (38-126); Aspartate Aminotransferase 22 IU/L (14-36); BUN Creatinine Ratio 17.5 (6-22); Bilirubin Total 0.6 mg/dL (0.2-1.3); Blood Urea Nitrogen 11 mg/dL (7-17); Calcium 9.5 mg/dL (8.4-10.2); Carbon Dioxide 29 mmol/L (22-32); Chloride 103 mmol/L (98-107); Estimated Glomerular Filt Rate > 60.0 mL/min (>60); Globulin 3.5 g/dL (1.7-4.1); Glucose 101 mg/dL (80-110); HEMOLYSIS < 15 (0-50); Magnesium 1.9 mg/dL (1.6-2.3); Potassium 4.4 mmol/L (3.4-5.1); Sodium 137 mmol/L (137-145); Total Protein 7.6 g/dL (6.3-8.2)
== END ==
PROVIDERS: PCP Family Medicine; Referring Provider Family Medicine; Visit Provider Family Medicine
DX: D68.59 Other primary thrombophilia (principal); I10 Essential (primary) hypertension; I48.91 Unspecified atrial fibrillation; I63.411 Cerebral infarction due to embolism of right middle cerebral artery; K58.9 Irritable bowel syndrome, unspecified; R62.7 Adult failure to thrive
CPT/HCPCS: 36415; 80053; 83735; 85025

== ENCOUNTER → 2020-03-09 12:31 | Outpatient (CLI) | payer MEDICARE, OTHER, SELFPAY ==
[2020-03-09 13:42] LABS: Hematocrit 38.6 % (36-46); Hemoglobin 12.3 g/dL (12.0-16.0); Mean Corpuscular HGB Conc 31.9 % (30-36); Mean Corpuscular Hemoglobin 29.6 PG (26-34); Platelet Count 230 X10^3/uL (150-400); Red Blood Cell Count 4.15 X10^6/uL (4.0-5.2); Red Cell Distribution Width 14.7 % (11.6-14.8); White Blood Cell Count 6.3 X10^3/uL (4.5-11.0)
[2020-03-09 13:53] LABS: Neutrophils Absolute Manual 4725 /uL (3000-5900); Total Cells Counted 100
[2020-03-09 13:54] LABS: Alanine Aminotransferase 14 IU/L (<35); Albumin Globulin Ratio 1.3 (1.0-2.8); Alkaline Phosphatase 98 U/L (38-126); Anisocytosis 1+; Aspartate Aminotransferase 22 IU/L (14-36); BUN Creatinine Ratio 24.6 (6-22); Bilirubin Total 0.6 mg/dL (0.2-1.3); Blood Urea Nitrogen 17 mg/dL (7-17); Calcium 9.3 mg/dL (8.4-10.2); Carbon Dioxide 32 mmol/L (22-32); Chloride 101 mmol/L (98-107); Cholesterol 146 mg/dL (140-199); Estimated Glomerular Filt Rate > 60.0 mL/min (>60); Globulin 3.2 g/dL (1.7-4.1); Glucose 115 mg/dL (80-110); HDL Cholesterol 66 mg/dL (40-60); HEMOLYSIS < 15 (0-50); LDL Cholesterol Calculated 53 mg/dL (<100); Poikilocytosis 1+; Potassium 4.1 mmol/L (3.4-5.1); Sodium 137 mmol/L (137-145); Total Protein 7.2 g/dL (6.3-8.2); Triglycerides 135 mg/dL (35-150)
== END ==
PROVIDERS: PCP Family Medicine; Referring Provider Family Medicine; Visit Provider Family Medicine
DX: N39.0 Urinary tract infection, site not specified (principal); I10 Essential (primary) hypertension; K58.9 Irritable bowel syndrome, unspecified; R62.7 Adult failure to thrive
CPT/HCPCS: 36415; 80053; 80061; 85025; 87077; 87086; 87186

== ENCOUNTER → 2020-03-20 16:22 | Outpatient (CLI) | payer MEDICARE, OTHER, SELFPAY ==
[2020-03-22 17:08] LABS: Calprotectin, Stool 18 ug/g (0-120)
== END ==
PROVIDERS: PCP Family Medicine; Referring Provider Family Medicine; Visit Provider Family Medicine
DX: R19.7 Diarrhea, unspecified (principal)
CPT/HCPCS: 83993

== ENCOUNTER 2020-04-07 09:59 | Emergency (ER) | payer MEDICARE, OTHER, SELFPAY ==
[2020-04-07] VITALS (19 sets, daily range): BP systolic 170–237; BP diastolic 74–110; PULSE 52–89; RESP 13–24; TEMP 37; O2SAT 96–99; BMI 18.6
--- NOTE | 2020-04-07 10:13 | ED.NAVMDI ---
HPI - Nausea/Vomiting/Diarrhea General Chief complaint: Abdominal Pain Stated complaint: diarrhea, uti pain, x7 days Time Seen by Provider: 04/07/20 10:09 Source: patient Mode of arrival: Ambulatory Limitations: no limitations History of Present Illness HPI Narrative: Patient is an 84-year-old female with history of atrial fibrillation, hypertension, CAD, CVA on Eliquis is with frequent UTIs presenting today with diarrhea. Sounds as though she has had diarrhea off and on for a while and thought she saw her primary in 03/09/2020 for some diarrhea. It sounds as though over the last 1 week she has had worsening diarrhea going multiple times clear and watery nonbloody. She apparently was recently on antibiotics for a UTI which she also gets frequently. She is having some lower abdominal pain both right and left side. She denies any fever nausea or vomiting. She is complaining of pain in her rectum and her vagina. MD complaint: diarrhea and abdominal pain Onset (ago): day(s) (7) Description of Vomiting: watery Location of pain: LLQ and RLQ Related Data Home Medications Medication Instructions Recorded Confirmed Spacer: Inhaler Spacer Device 1 ea MISCELLANEOUS DIRECTED 10/27/17 03/09/20 mupirocin 1 applic TOPICAL DIRECTED 12/03/17 03/09/20 aspirin 81 mg chewable tablet 81 mg PO DAILY 12/23/19 03/09/20 metoprolol tartrate 25 mg tablet 12.5 mg PO DAILY tab 12/23/19 03/09/20 Previous Rx's Medication Instructions Recorded Handicap Parking #1 ea 06/04/18 ondansetron HCl 4 mg PO Q6H PRN #20 tab 02/13/19 albuterol sulfate 90 mcg/actuation 2 puff INHALATION Q6H PRN #8 gram 02/22/19 aerosol inhaler diazepam 5 mg tablet See Rx Instructions PO TID PRN #90 02/23/19 tab inhalational spacing device #1 each 03/24/19 atorvastatin 40 mg tablet 40 mg PO BEDTIME #90 tab 12/26/19 losartan 50 mg tablet 50 mg PO DAILY #90 tab 12/26/19 nitroglycerin 0.4 mg sublingual See Rx Instructions SUBLINGUAL PRN 12/26/19 tablet PRN #30 tab pantoprazole 40 mg tablet,delayed 40 mg PO DAILY #90 tab 12/26/19 release apixaban 5 mg tablet 5 mg PO BID #60 tab 01/30/20 ferrous sulfate 325 mg (65 mg 325 mg PO DAILY #60 tab 02/13/20 iron) tablet gabapentin 300 mg capsule 300 mg PO TID #90 cap 03/21/20 hydrocodone 5 mg-acetaminophen 325 1 tab PO Q6H PRN #120 tab 03/21/20 mg tablet Allergies Allergy/AdvReac Type Severity Reaction Status Date / Time furosemide [FUROSEMIDE] Allergy Mild RASH Verified 03/09/20 12:05 sertraline [SERTRALINE] Allergy Mild FEELS Verified 03/09/20 12:05 DRUGGED lisinopril AdvReac Mild Cough Verified 03/09/20 12:05 Review of Systems Review of Systems ROS Unobtainable: All systems reviewed & are unremarkable except as noted in HPI and below Constitutional Constitutional: Denies chills, Denies fever(s), Denies lethargy and Denies weakness Eyes Eyes: Denies change in vision, Denies eye discharge, Denies irritation and Denies loss of vision ENT Ears, Nose, Mouth, and Throat: Denies change in voice, Denies neck pain and Denies sore throat Cardiovascular Cardiovascular: Reports irregular heart rhythm, Denies dyspnea and Denies dyspnea on exertion Respiratory Respiratory: Denies cough, Denies dyspnea, Denies dyspnea on exertion and Denies wheezing Gastrointestinal Gastrointestinal: Reports as per HPI, Reports abdominal pain, Reports change in bowel habits, Reports diarrhea, Denies nausea and Denies vomiting Genitourinary Genitourinary: Reports as per HPI Genitourinary: Reports as per HPI Musculoskeletal Musculoskeletal: Denies back pain and Denies neck pain Integumentary/Breasts Skin/Breast: Denies pruritus, Denies erythema, Denies rash and Denies wounds Neurologic Neurologic: Denies loss of vision and Denies weakness Allergic/Immunologic Allergic/Immunologic: Denies wheezing 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) Asthma Breast cancer (~2001) CAD (coronary artery disease) Calcified nodule Cerebrovascular accident (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 right middle cerebral artery (04/27/17) Cervical cancer, FIGO stage I Cholelithiasis Chronic back pain Developmental disorder Essential hypertension (02/19/12) Fibrocystic breast disease GERD (gastroesophageal reflux disease) History of colon polyps (02/19/12) History of left breast cancer (~2008) Hyperlipidemia IBS (irritable bowel syndrome) Measles 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, bilateral Personal history of other malignant neoplasm of skin (02/19/12) 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) Systolic congestive heart failure with reduced left ventricular function, NYHA class 2 (10/26/10) Surgical History Anesthesia Status post arthroscopy Status post biopsy (~2014) Status post breast lumpectomy (~2008) Status post cholecystectomy Status post coronary artery bypass graft Status post hysterectomy (~2009) Social History household members: children Smoking Status: Never smoker alcohol intake: never Smoking Status: Never smoker alcohol intake frequency: holidays/special occasions only Substance Use Type: does not use Exam Initial Vital Signs Initial Vital Signs: Vital Signs Pulse Rate 68 04/07/20 10:09 Pulse Oximetry 98 04/07/20 10:09 GENERAL: Alert 84-year-old female and in no acute distress. HEENT: Head atraumatic,EOMI, pupils reactive, face symmetric, moist mucous membranes CARDIOVASCULAR: Irregularly irregular no murmur RESPIRATORY: Breath sounds equal bilaterally, no wheezes rales or rhonchi. ABDOMEN: Soft, lower abdominal pain left lower quadrant and right lower quadrant mild guarding EXTREMITIES: Normal range of motion, no clubbing or edema. Neurovascularly intact NEUROLOGICAL: Alert and oriented x4.Normal gait and speech. SKIN: Warm, dry, no laceration, no petechiae, no rashes or lesions. Course Orders Ordered: ED Orders 04/07/20 10:15 EKG-12 Lead Stat 04/07/20 10:29 Clostridium Difficile Tox PCR Stat 04/07/20 10:30 Complete Blood Count AUTO DIFF Stat Comprehensive Metabolic Panel Stat Lipase Stat Partial Thromboplastin Time Stat Prothrombin Time INR Stat Troponin & CK Cardiac Panel Stat 04/07/20 11:23 CT abdomen pelvis w con Stat Discontinued Medications Sodium Chloride (Normal Saline 0.9%) 1,000 mls @ 150 mls/hr IV CONT MARKIE Last Infusion: 04/07/20 15:22 Dose: 0 mls/hr Documented by: Admin: 04/07/20 11:40 Dose: 150 mls/hr Documented by: KELLEN Labetalol HCl (Labetalol 20 Mg/4 Ml Syringe) 10 mg IV NOW ONE Stop: 04/07/20 14:16 Last Admin: 04/07/20 14:22 Dose: 10 mg Documented by: KELLEN Metoprolol Tartrate (Metoprolol Ir 25 Mg Tablet) 25 mg PO NOW ONE Stop: 04/07/20 13:08 Last Admin: 04/07/20 13:15 Dose: 25 mg Documented by: KELLEN Vital Signs Vital signs: Vital Signs - 8 hr 04/07/20 10:30 04/07/20 11:00 04/07/20 11:30 Pulse Rate 65 63 62 Respiratory Rate 19 14 15 Blood Pressure Pulse Oximetry 97 98 98 04/07/20 11:54 04/07/20 12:00 04/07/20 12:06 Pulse Rate 65 66 61 Respiratory Rate 18 13 24 Blood Pressure 201/96 H 231/98 H 237/110 H Pulse Oximetry 98 99 98 04/07/20 12:30 04/07/20 12:31 04/07/20 13:00 Pulse Rate 62 62 58 L Respiratory Rate 15 15 14 Blood Pressure 230/101 H Pulse Oximetry 98 98 98 04/07/20 13:01 04/07/20 13:30 04/07/20 13:51 Pulse Rate 58 L 68 64 Respiratory Rate 16 22 20 Blood Pressure 223/101 H 234/108 H Pulse Oximetry 98 04/07/20 14:00 04/07/20 14:02 04/07/20 14:22 Pulse Rate 70 66 66 Respiratory Rate 19 15 Blood Pressure 218/96 H 218/97 H Pulse Oximetry 98 98 04/07/20 14:30 04/07/20 15:00 Pulse Rate 52 L 54 L Respiratory Rate 17 24 Blood Pressure 182/74 H Pulse Oximetry 99 MDM - Nausea/Vomiting/Diarrhea Lab Data Attestation: I reviewed the patient's lab results. Result diagrams: 04/07/20 10:30 04/07/20 10:30 Labs: Lab Results 04/07/20 04/07/20 04/07/20 Range/Units 10:29 10:30 10:30 WBC 5.6 (4.5-11.0) X10^3/uL RBC 4.30 (4.0-5.2) X10^6/uL Hgb 13.1 (12.0-16.0) g/dL Hct 39.6 (36-46) % MCV 92.2 (80-100) fL MCH 30.4 (26-34) PG MCHC 33.0 (30-36) % RDW 14.4 (11.6-14.8) % Plt Count 188 (150-400) X10^3/uL Neut % (Auto) 63.8 (50-75) % Lymph % (Auto) 28.7 (25-40) % [place] % (Auto) 6.1 (3-14) % Eos % (Auto) 0.8 L (2-4) % Baso % (Auto) 0.6 (0-2) % Neut # (Auto) 3600 (7240-8896) /uL Lymph # (Auto) 1600 (2484-8631) /uL [place] # (Auto) 300 (0-900) /uL Eos # (Auto) 0 (0-450) /uL Baso # (Auto) 0 (0-100) /uL PT 14.8 H (10.1-12.7) SECONDS INR 1.3 (0.9-1.3) APTT 38 H (26.4-36.2) SECONDS Sodium (137-145) mmol/L Potassium (3.4-5.1) mmol/L Chloride (98-107) mmol/L Carbon Dioxide (22-32) mmol/L BUN (7-17) mg/dL Creatinine (0.52-1.04) mg/dL Estimated GFR (>60) mL/min BUN/Creatinine Ratio (6-22) Glucose (80-110) mg/dL Calcium (8.4-10.2) mg/dL Total Bilirubin (0.2-1.3) mg/dL AST (14-36) IU/L ALT (<35) IU/L Alkaline Phosphatase (38-126) U/L Total Creatine Kinase (30-135) U/L CK-MB (CK-2) CK-MB (CK-2) Rel Index Troponin I (0.01-0.034) ng/mL Total Protein (6.3-8.2) g/dL Albumin (3.5-5.0) g/dL Globulin (1.7-4.1) g/dL Albumin/Globulin Ratio (1.0-2.8) Lipase (23-300) U/L C. difficile Tox (PCR) Negative for c. diff 04/07/20 04/07/20 Range/Units 10:30 10:30 WBC (4.5-11.0) X10^3/uL RBC (4.0-5.2) X10^6/uL Hgb (12.0-16.0) g/dL Hct (36-46) % MCV (80-100) fL MCH (26-34) PG MCHC (30-36) % RDW (11.6-14.8) % Plt Count (150-400) X10^3/uL Neut % (Auto) (50-75) % Lymph % (Auto) (25-40) % [place] % (Auto) (3-14) % Eos % (Auto) (2-4) % Baso % (Auto) (0-2) % Neut # (Auto) (3335-7479) /uL Lymph # (Auto) (6408-6268) /uL [place] # (Auto) (0-900) /uL Eos # (Auto) (0-450) /uL Baso # (Auto) (0-100) /uL PT (10.1-12.7) SECONDS INR (0.9-1.3) APTT (26.4-36.2) SECONDS Sodium 136 L (137-145) mmol/L Potassium 3.8 (3.4-5.1) mmol/L Chloride 105 (98-107) mmol/L Carbon Dioxide 27 (22-32) mmol/L BUN 13 (7-17) mg/dL Creatinine 0.73 (0.52-1.04) mg/dL Estimated GFR > 60.0 (>60) mL/min BUN/Creatinine Ratio 17.8 (6-22) Glucose 110 (80-110) mg/dL Calcium 9.2 (8.4-10.2) mg/dL Total Bilirubin 0.5 (0.2-1.3) mg/dL AST 23 (14-36) IU/L ALT 12 (<35) IU/L Alkaline Phosphatase 108 (38-126) U/L Total Creatine Kinase 21 L (30-135) U/L CK-MB (CK-2) TNP CK-MB (CK-2) Rel Index TNP Troponin I < 0.012 (0.01-0.034) ng/mL Total Protein 7.5 (6.3-8.2) g/dL Albumin 4.2 (3.5-5.0) g/dL Globulin 3.3 (1.7-4.1) g/dL Albumin/Globulin Ratio 1.3 (1.0-2.8) Lipase 611 H (23-300) U/L C. difficile Tox (PCR) Urine Dip Bedside Urine Glucose Negative Bedside Urine Bilirubin - Negative Bedside Urine Ketone - Negative Urine Specific [place] 1.015 Bedside Urine Occult Blood - Negative Bedside Urine pH 6 Bedside Urine Protein - Negative Bedside Urine Urobilinogen - Negative Bedside Urine Nitrite - Negative Bedside Urine Leukocytes - Negative Esterase Imaging Data CT scan - abdomen/pelvis: Radiologist's Impression: PROCEDURE: CT ABDOMEN PELVIS W CON INDICATIONS: lower ab pain TECHNIQUE: After the administration of intravenous contrast, 5 mm thick sections acquired from the diaphragm to the symphysis. 5 mm coronal and sagittal reformats were acquired. For radiation dose reduction, the following was used: automated exposure control, adjustment of mA and/or kV according to patient size. COMPARISON: [facility], CT, CT ABDOMEN PELVIS W CON, 02/13/2019, 13:56. [facility], CT, CT ABDOMEN PELVIS W CON, 01/11/2019, 10:17. [facility], CT, CT ABDOMEN PELVIS W CON, 04/18/2019, 18:00. FINDINGS: Image quality: There is streak artifact seen through the upper abdomen. ABDOMEN: Lung bases: Lung bases are clear. Heart size is normal. Sternotomy wires are partially seen. Solid organs: Liver is normal in size and enhancement. Gallbladder has been removed. Biliary system is non dilated. Pancreas enhances normally. Spleen is normal in size and enhancement. No adrenal nodules. Kidneys demonstrate normal size and enhancement, without hydronephrosis. There is a superior medial right renal cyst seen that measures water density and 2.3 cm. Peritoneum and bowel: In this patient with this given history, scrutiny is given to the distal colon. No distal colonic abnormality can be seen. Negative for sigmoid diverticulosis. No appendix (either normal or abnormal) is identified on this study. No focal right lower quadrant inflammatory change can be seen. No dilated loops of bowel are seen. No free air or significant free fluid can be seen. Nodes and vessels: No retroperitoneal or mesenteric adenopathy by size criteria. Aorta and inferior vena cava are normal in size. Atherosclerotic calcification is noted. Miscellaneous: No ventral hernias. PELVIS: Genitourinary: Bladder wall thickness is normal. This patient is status post hysterectomy. No adnexal masses are seen. Miscellaneous: No inguinal hernias or adenopathy. Bones: No suspicious bony lesions. No vertebral body compression fractures. Mild dextroconvex scoliotic curvature is seen. Age-appropriate bony degenerative changes are seen. IMPRESSION: No significant abnormality is seen to explain the patient's presenting history of lower abdominal pain. Negative for diverticulosis or diverticulitis. No appendix can be seen, either normal or abnormal. Incidental note is made of: Sternotomy wires Cholecystectomy Simple appearing right renal cyst Hysterectomy Dictated by: Felix Lomeli M.D. on 04/07/2020 at 11:12 ECG Data Attestation: I personally reviewed and interpreted this ECG as follows: Prior ECG tracings: available for review Interpretation: Atrial fibrillation rate 68 PVCs noted similar to previous EKG MDM Narrative Medical decision making narrative: Patient did have 1 episode of diarrhea in the ED it was sent for C diff which is negative. She overall does not appear significantly dehydrated. His she was quite hypertensive here with systolics greater than 200. She was given her home metoprolol an extra dose of labetalol which did seem to help. No sign of end-organ damage. I recommended that she follow-up with her primary care provider in regards to blood pressure control. Son states that he has had diarrhea ongoing for a while and nothing has been done about it. I recommended GI referral. At this time I encouraged her to stay hydrated is in to return if symptoms worsen. Discharge Plan Departure Patient Disposition: Home Clinical Impression: Gastroenteritis, Essential hypertension Instructions: Essential Hypertension, DI for Viral Gastroenteritis -- Adult Activity Restrictions/Additional Instructions: *You have been diagnosed with gastroenteritis, and hypertension *What to do: Please talk with her primary care provider in regards to her blood pressure. Was noted to be quite elevated here in the emergency department your blood pressure medication may need to be adjusted. Continue to increase fluid intake. He may need more stool studies if you continue to have diarrhea. Please see her primary care physician about this as well. *Continue to take medications as directed *Follow up with your primary care provider in 2-3 days *Return to ER if you should have worsening diarrhea, worsening abdominal pain, chest pain, shortness of breath headache or any new, worsening or concerning symptoms Prescriptions: No Action albuterol sulfate [Proventil HFA] 90 mcg/actuation HFA aerosol inhaler 2 puff INHALATION Q6H PRN (Reason: shortness of breath or wheezing) Qty: 8 RF: 0 diazepam 5 mg tablet See Rx Instructions PO TID PRN (Reason: muscle spasm) Qty: 90 RF: 0 Hold Instructions: stopped at [place] ([facility]) Aerochamber MV Spacer See Rx Instructions .ROUTE .MEDSUPPLY Qty: 1 RF: 0 aspirin 81 mg tablet,chewable 81 mg PO DAILY RF: 0 metoprolol tartrate 25 mg tablet 12.5 mg PO DAILY RF: 0 apixaban 5 mg tablet 5 mg PO BID Qty: 60 RF: 1 ferrous sulfate 325 mg (65 mg iron) tablet 325 mg PO DAILY Qty: 60 RF: 2 hydrocodone-acetaminophen 5-325 mg tablet 1 tab PO Q6H PRN (Reason: pain) Qty: 120 RF: 0 gabapentin [Neurontin] 300 mg capsule 300 mg PO TID Qty: 90 RF: 5 Hold Instructions: stopped at [place] atorvastatin 40 mg tablet 40 mg PO BEDTIME Qty: 90 RF: 3 nitroglycerin [Nitrostat] 0.4 mg tablet, sublingual See Rx Instructions Sublingual PRN PRN (Reason: Chest Pain) Qty: 30 RF: 0 losartan 50 mg tablet 50 mg PO DAILY Qty: 90 RF: 3 pantoprazole 40 mg tablet,delayed release (DR/EC) 40 mg PO DAILY Qty: 90 RF: 1 (DME) Handicap Parking Qty: 1 RF: 0 mupirocin 2 % ointment 1 applic Topical DIRECTED RF: 0 Spacer: Inhaler Spacer Device 1 ea miscellaneous DIRECTED RF: 0 ondansetron HCl 4 mg tablet 4 mg PO Q6H PRN (Reason: nausea and vomiting) Qty: 20 RF: 0 Referrals: Heather Tapia DO [Primary Care Provider] -
[2020-04-07 10:43] LABS: Add Manual Diff / Slide Review NO; Basophils Absolute Auto 0 /uL (0-100); Basophils Percent Auto 0.6 % (0-2); Eosinophils Absolute Auto 0 /uL (0-450); Eosinophils Percent Auto 0.8 % (2-4); Hematocrit 39.6 % (36-46); Hemoglobin 13.1 g/dL (12.0-16.0); Lymphocytes Absolute Auto 1600 /uL (1100-4500); Lymphocytes Percent Auto 28.7 % (25-40); Mean Corpuscular Hemoglobin 30.4 PG (26-34); Mean Corpuscular Volume 92.2 fL (80-100); Monocytes Absolute Auto 300 /uL (0-900); Monocytes Percent Auto 6.1 % (3-14); Neutrophils Absolute Auto 3600 /uL (1500-7000); Neutrophils Percent Auto 63.8 % (50-75); Platelet Count 188 X10^3/uL (150-400); Red Cell Distribution Width 14.4 % (11.6-14.8); White Blood Cell Count 5.6 X10^3/uL (4.5-11.0)
[2020-04-07 10:50] LABS: INR 1.3 (0.9-1.3); Prothrombin Time 14.8 SECONDS (10.1-12.7)
[2020-04-07 10:52] LABS: PTT Partial Thromboplastin Tim 38 SECONDS (26.4-36.2)
[2020-04-07 10:58] LABS: Alanine Aminotransferase 12 IU/L (<35); Albumin 4.2 g/dL (3.5-5.0); Albumin Globulin Ratio 1.3 (1.0-2.8); Alkaline Phosphatase 108 U/L (38-126); Aspartate Aminotransferase 23 IU/L (14-36); BUN Creatinine Ratio 17.8 (6-22); Bilirubin Total 0.5 mg/dL (0.2-1.3); Blood Urea Nitrogen 13 mg/dL (7-17); Calcium 9.2 mg/dL (8.4-10.2); Carbon Dioxide 27 mmol/L (22-32); Chloride 105 mmol/L (98-107); Estimated Glomerular Filt Rate > 60.0 mL/min (>60); Globulin 3.3 g/dL (1.7-4.1); Glucose 110 mg/dL (80-110); HEMOLYSIS < 15 (0-50); Lipase 611 U/L (23-300); Potassium 3.8 mmol/L (3.4-5.1); Sodium 136 mmol/L (137-145); Total Protein 7.5 g/dL (6.3-8.2)
--- NOTE | 2020-04-07 11:23 | DI.CT.S_ITS ---
PROCEDURE: CT ABDOMEN PELVIS W CON INDICATIONS: lower ab pain TECHNIQUE: After the administration of intravenous contrast, 5 mm thick sections acquired from the diaphragm to the symphysis. 5 mm coronal and sagittal reformats were acquired. For radiation dose reduction, the following was used: automated exposure control, adjustment of mA and/or kV according to patient size. COMPARISON: [facility], CT, CT ABDOMEN PELVIS W CON, 02/13/2019, 13:56. [facility], CT, CT ABDOMEN PELVIS W CON, 01/11/2019, 10:17. [facility], CT, CT ABDOMEN PELVIS W CON, 04/18/2019, 18:00. FINDINGS: Image quality: There is streak artifact seen through the upper abdomen. ABDOMEN: Lung bases: Lung bases are clear. Heart size is normal. Sternotomy wires are partially seen. Solid organs: Liver is normal in size and enhancement. Gallbladder has been removed. Biliary system is non dilated. Pancreas enhances normally. Spleen is normal in size and enhancement. No adrenal nodules. Kidneys demonstrate normal size and enhancement, without hydronephrosis. There is a superior medial right renal cyst seen that measures water density and 2.3 cm. Peritoneum and bowel: In this patient with this given history, scrutiny is given to the distal colon. No distal colonic abnormality can be seen. Negative for sigmoid diverticulosis. No appendix (either normal or abnormal) is identified on this study. No focal right lower quadrant inflammatory change can be seen. No dilated loops of bowel are seen. No free air or significant free fluid can be seen. Nodes and vessels: No retroperitoneal or mesenteric adenopathy by size criteria. Aorta and inferior vena cava are normal in size. Atherosclerotic calcification is noted. Miscellaneous: No ventral hernias. PELVIS: Genitourinary: Bladder wall thickness is normal. This patient is status post hysterectomy. No adnexal masses are seen. Miscellaneous: No inguinal hernias or adenopathy. Bones: No suspicious bony lesions. No vertebral body compression fractures. Mild dextroconvex scoliotic curvature is seen. Age-appropriate bony degenerative changes are seen. IMPRESSION: No significant abnormality is seen to explain the patient's presenting history of lower abdominal pain. Negative for diverticulosis or diverticulitis. No appendix can be seen, either normal or abnormal. Incidental note is made of: Sternotomy wires Cholecystectomy Simple appearing right renal cyst Hysterectomy Dictated by: Felix Lomeli M.D. on 04/07/2020 at 11:12 Approved by: Felix Lomeli M.D. on 04/07/2020 at 11:17
[2020-04-07] MEDS: SODIUM CHLORIDE 0.9% 1,000 ML 150 ML IV (11:40)
--- NOTE | 2020-04-07 12:08 | PC.NURSE ---
Notified Dr Joaquin that BP is elevated, 237/110. No new orders at this time. Will continue to monitor. Pt has no complaints.
[2020-04-07 12:19] LABS: Creatine Kinase 21 U/L (30-135)
[2020-04-07 12:33] LABS: Troponin I < 0.012 ng/mL (0.01-0.034)
[2020-04-07] MEDS: METOPROLOL IR 25 MG TABLET PO (13:15)
--- NOTE | 2020-04-07 13:35 | PC.NURSE ---
Pt is sitting up, having lunch.
[2020-04-07] MEDS: LABETALOL 20 MG/4 ML SYRINGE 10 MG IV (14:22)
[2020-04-07 15:12] LABS: Clostridium Difficile Tox PCR Negative for C. diff
== END 2020-04-07 15:40 | disposition home or self-care (01) ==
PROVIDERS: Emergency Provider Emergency Medicine; PCP Family Medicine
DX: K52.9 Noninfective gastroenteritis and colitis, unspecified (principal); I10 Essential (primary) hypertension; R10.9 Unspecified abdominal pain; I48.91 Unspecified atrial fibrillation; Z79.01 Long term (current) use of anticoagulants; I25.10 Atherosclerotic heart disease of native coronary artery without angina pectoris
CPT/HCPCS: 36415; 74177; 80053; 81003; 82550; 83690; 84484; 85025; 85610; 85730; 87493; 93005; 93010; 96361; 96374; 99284; Q9967

== ENCOUNTER 2020-08-17 10:10 | Observation (INO) | payer MEDICARE, OTHER, SELFPAY ==
[2020-08-17] VITALS (24 sets, daily range): BP systolic 139–210; BP diastolic 60–104; PULSE 50–102; RESP 14–35; TEMP 35.9–36.8; O2SAT 95–100; BMI 22.8
--- NOTE | 2020-08-17 10:33 | DI.RAD.S_ITS ---
PROCEDURE: XR CHEST 1V INDICATIONS: falls, abdominal pain TECHNIQUE: One view of the chest was acquired. COMPARISON: [facility], CR, XR CHEST 2V, 01/10/2019, 5:32. [facility], CR, XR CHEST 1V, 01/06/2019, 14:14. FINDINGS: Surgical changes and devices: Status post CABG procedure Lungs and pleura: Lungs are clear. No pleural effusions or pneumothorax. Mediastinum: Mediastinal contours appear normal. Heart size is normal. Bones and chest wall: No suspicious bony lesions. Overlying soft tissues appear unremarkable. IMPRESSION: No acute cardiopulmonary disease process. Dictated by: Kristel Salinas MD, PhD on 08/17/2020 at 11:05 Approved by: Kristel Salinas MD, PhD on 08/17/2020 at 11:07
--- NOTE | 2020-08-17 10:33 | DI.CT.S_ITS ---
PROCEDURE: CT ABDOMEN PELVIS W CON INDICATIONS: abdominal pain, ? vomiting, dark stools, recent falls. TECHNIQUE: After the administration of intravenous contrast, axial sections acquired from the lung bases to the pubic symphysis. Coronal and sagittal reformats were performed. For radiation dose reduction, the following was used: automated exposure control, adjustment of mA and/or kV according to patient size. COMPARISON: [facility], CT, CT ABDOMEN PELVIS W CON, 02/13/2019, 13:56. [facility], CT, CT ABDOMEN PELVIS W CON, 01/11/2019, 10:17. [facility], RF, FL BARIUM SWALLOW W SPEECH, 01/12/2019, 8:29. [facility], CT, CT ABDOMEN PELVIS W CON, 04/07/2020, 11:25. FINDINGS: Lower thorax: Heart size is enlarged. Midline sternal wires noted. Lung bases are clear. Small left pleural effusion noted. Liver: Normal in size and attenuation. No contour deformity present. Biliary system: Cholecystectomy. CBD is prominent at 1.1 cm. Mild intrahepatic biliary ductal prominence present as well. Pancreas: Unremarkable without mass or inflammation evident. Spleen: Normal in size and density. Adrenals: Normal morphology and density. Reproductive system: Hysterectomy. Urinary system: Normal renal size and attenuation. 2 cm simple right renal cyst. No renal calculi, hydronephrosis, or solid mass present. Urinary bladder unremarkable. Gastrointestinal system: The bowel appears unremarkable with no evidence of bowel obstruction or inflammation. The stomach is under distended, and shows fundal wall thickening, similar to the priors. Multiple diverticula arise from the sigmoid colon without evidence of diverticulitis. Appendix: No findings to suggest acute appendicitis. Peritoneal spaces: No mesenteric or retroperitoneal adenopathy. No free air. No free fluid. Vasculature: Aortic atherosclerotic vascular calcification noted without evidence of aneurysm. Musculoskeletal: Normal bone mineralization. No acute fractures. Abdominal wall intact without evidence of ventral or inguinal hernias. Degenerative changes noted involving the lumbar spine without compression fracture. IMPRESSION: 1. No acute CT abdomen and pelvis findings. 2. Prominent intra and extrahepatic bile ducts status post cholecystectomy. CBD measures 1.1 cm, similar prior exams. MRCP could be considered for further evaluation. 3. Gastric fundal wall thickening probably related to underdistention. No change from prior exams 4. Small left pleural effusion. Dictated by: Garo Gallegos M.D. on 08/17/2020 at 10:37 Approved by: Garo Gallegos M.D. on 08/17/2020 at 10:54
--- NOTE | 2020-08-17 10:33 | DI.CT.S_ITS ---
PROCEDURE: CT HEAD/BRAIN WO CON INDICATIONS: falls, abd pain TECHNIQUE: Noncontrast 4.5 mm thick angled axial sections acquired from the foramen magnum to the vertex, with coronal and sagittal reformats. For radiation dose reduction, the following was used: automated exposure control, adjustment of mA and/or kV according to patient size. COMPARISON: [facility], MR, MR STROKE PROTOCOL, 10/30/2017, 22:06. , CT, CT HEAD/BRAIN WO CON, 12/03/2017, 16:01. FINDINGS: Image quality: Excellent. CSF spaces: Basal cisterns are patent. No extra-axial fluid collections. The ventricles are symmetric in size and shape. 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 Old wedge-shaped infarct noted in the right cerebellum as well. No intracranial bleeds or masses. There is cerebral volume loss for age, with resultant ventricular and sulcal prominence. There are periventricular and deep white matter chronic small vessel ischemic changes. There is intracranial internal carotid artery atherosclerosis. Skull and face: Calvarium and visualized facial bones appear intact, without suspicious lesions. Incidental hyperostosis frontalis interna noted. Right frontal calcified scalp nodule also remains unchanged. Sinuses: Visualized sinuses and mastoids are clear. IMPRESSION: No acute intracranial findings. 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 Dictated by: Garo Gallegos M.D. on 08/17/2020 at 10:26 Approved by: Garo Galelgos M.D. on 08/17/2020 at 10:37
--- NOTE | 2020-08-17 10:36 | ED_ITS ---
HPI - Abdominal Pain General Chief Complaint: Abdominal Pain Stated Complaint: Abd pain Time Seen by Provider: 08/17/20 10:13 Source: patient, EMS and old records reviewed Mode of arrival: EMS Limitations: no limitations History of Present Illness HPI narrative: This is an 85-year-old female with history of atrial f ibrillation, hypertension, CAD with CABG, CVA on Eliquis frequent UTIs. Patient states she has had some falls frequently. She states she did think she hit her head a couple weeks she also has some complaint of chest discomfort and some bruising on the left side of her chest. She also is having abdominal pain. Patient has noted she has had black stools for the last day. They have been loose and runny. Patient states she has been nauseous and vomiting but describes it as white in phlegm like. Patient denies any fevers or chills. She denies any headache or neck pain. She has some low back pain which she describes similar to her chronic back issues. Patient does not currently have any shortness of breath. Patient states that she follows with Dr. Tapia and is supposed to see her on August 23 to get her pain medications refilled. She has since run out. She states she takes them for her joints. Patient states she does have allergies but she does not recall what they are. She states she did take her medications this morning but does not know what once she takes in the morning. She and her son live together him he helps to dispense her medications. She denies any tobacco, alcohol or illicit. She typically does walk but uses a cane. Most recent fall she states she was trying to get out of bed and missed her chair and fell backwards on her buttocks. Related Data Home Medications Medication Instructions Recorded Confirmed Spacer: Inhaler Spacer Device 1 ea MISCELLANEOUS DIRECTED 10/27/17 03/09/20 mupirocin 2 % topical ointment 1 applic TOPICAL DIRECTED 12/03/17 03/09/20 aspirin 81 mg chewable tablet 81 mg PO DAILY 12/23/19 03/09/20 metoprolol tartrate 25 mg tablet 12.5 mg PO DAILY tab 12/23/19 03/09/20 Previous Rx's Medication Instructions Recorded Handicap Parking #1 ea 06/04/18 ondansetron HCl 4 mg tablet 4 mg PO Q6H PRN #20 tab 02/13/19 albuterol sulfate 90 mcg/actuation 2 puff INHALATION Q6H PRN #8 gram 02/22/19 aerosol inhaler (Proventil HFA) diazepam 5 mg tablet See Rx Instructions PO TID PRN #90 02/23/19 tab inhalational spacing device #1 each 03/24/19 (Aerochamber MV) atorvastatin 40 mg tablet 40 mg PO BEDTIME #90 tab 12/26/19 losartan 50 mg tablet 50 mg PO DAILY #90 tab 12/26/19 nitroglycerin 0.4 mg sublingual See Rx Instructions SUBLINGUAL PRN 12/26/19 tablet (Nitrostat) PRN #30 tab pantoprazole 40 mg tablet,delayed 40 mg PO DAILY #90 tab 12/26/19 release ferrous sulfate 325 mg (65 mg 325 mg PO DAILY #60 tab 02/13/20 iron) tablet gabapentin 300 mg capsule 300 mg PO TID #90 cap 03/21/20 (Neurontin) hydrocodone 5 mg-acetaminophen 325 1 tab PO Q6H PRN #120 tab 07/27/20 mg tablet apixaban 5 mg tablet 5 mg PO BID #180 tab 08/01/20 Allergies Allergy/AdvReac Type Severity Reaction Status Date / Time furosemide [FUROSEMIDE] Allergy Mild RASH Verified 08/17/20 10:43 sertraline [SERTRALINE] Allergy Mild FEELS Verified 08/17/20 10:43 DRUGGED lisinopril AdvReac Mild Cough Verified 08/17/20 10:43 Review of Systems Review of Systems ROS Unobtainable: All systems reviewed & are unremarkable except as noted in HPI and below 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) Asthma Breast cancer (~2001) CAD (coronary artery disease) Calcified nodule Cerebrovascular accident (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 right middle cerebral artery (04/27/17) Cervical cancer, FIGO stage I Cholelithiasis Chronic back pain Developmental disorder Essential hypertension (02/19/12) Fibrocystic breast disease GERD (gastroesophageal reflux disease) History of colon polyps (02/19/12) History of left breast cancer (~2008) Hyperlipidemia IBS (irritable bowel syndrome) Measles 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, bilateral Personal history of other malignant neoplasm of skin (02/19/12) 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) Systolic congestive heart failure with reduced left ventricular function, NYHA class 2 (10/26/10) Surgical History Anesthesia Status post arthroscopy Status post biopsy (~2014) Status post breast lumpectomy (~2008) Status post cholecystectomy Status post coronary artery bypass graft Status post hysterectomy (~2009) Social History household members: children Smoking Status: Never smoker alcohol intake: never Smoking Status: Never smoker alcohol intake frequency: holidays/special occasions only Substance Use Type: does not use Exam Narrative Exam Narrative: GEN: Patient appears in mild distress. HEAD: No evidence of trauma, no raccoon/Landrum sign. NECK: Nontender, painless range of motion, trachea midline Negative for Nexus criteria, there is no mid line tenderness, distracting injury, altered mental status, neuro deficit, recent EtOH. EYES: PERRLA, EOMI ENT: External inspection normal, trachea is midline, Nares are clear, no septal hematoma, no dental or oral injury, airway is normal and with normal occlusion, No bony tenderness RESP: Chest is nontender and has symmetric movement, she does have area of faint greenish discoloration consistent with ecchymosis on her left upper chest, no palpable hematoma, breath sounds are normal no crackles, wheezes or rales. CVS: Heart sounds are normal, no murmur noted, No JVD. ABG/GI: Positive for left lower quadrant tenderness, soft, normal bowel sounds, no distention, no organomegaly, pelvic rock is negative GENIT, RECTAL: Normal external inspection, normal rectal tone, stool occult is negative NEURO: Oriented AOx3, neuro is grossly intact, sensation and motor is normal all 4 extremities moving, cranial nerves II through XII are intact, GCS is 15 PSYCH: Normal mood and affect SKIN: Intact, warm and dry, no crepitus and without decubitus BACK: No CVA tenderness, no vertebral tenderness, no step-off's, no crepitus EXT: Atraumatic, hips are nontender, no pedal edema, normal color and temperature, normal range of motion of extremities with normal tendon exam, 2+ pulses in all four extremities Initial Vital Signs Initial Vital Signs: Vital Signs Temperature 98.2 F 08/17/20 10:00 Pulse Rate 88 08/17/20 10:00 Respiratory Rate 17 08/17/20 10:00 Blood Pressure 202/102 H 08/17/20 10:00 Pulse Oximetry 97 08/17/20 10:00 Scores GCS [place] coma scale eye opening: Spontaneous [place] coma scale verbal response: Orientated [place] coma scale motor response: Obey commands [place] coma scale total score: 15 Course Orders Ordered: ED Orders 08/17/20 12:35 COVID19 - ADMIT ([employer] swab/PCR) Stat Acetaminophen (Acetaminophen 325 Mg Tablet) 650 mg PO Q6HR PRN PRN Reason: Fever/Mild Pain (1-3) Albuterol (Albuterol 2.5 Mg/3 Ml Neb (Adult)) 2.5 mg INH Q6H PRN PRN Reason: shortness of breath or wheezing Apixaban (Apixaban 5 Mg Tablet) 5 mg PO BID [facility] Last Admin: 08/17/20 21:20 Dose: 5 mg Documented by: JOSE Aspirin (Aspirin 81 Mg Chew Tab) 81 mg PO DAILY [facility] Atorvastatin Calcium (Atorvastatin 20 Mg Tablet) 40 mg PO BEDTIME [facility] Last Admin: 08/17/20 21:20 Dose: 40 mg Documented by: JOSE Diazepam (Diazepam 5 Mg Tablet) 5 mg PO TID PRN PRN Reason: muscle spasm Gabapentin (Gabapentin 300 Mg Capsule) 300 mg PO TID [facility] Last Admin: 08/17/20 21:20 Dose: 300 mg Documented by: JOSE Losartan Potassium (Losartan 50 Mg Tablet) 50 mg PO DAILY [facility] Last Admin: 08/17/20 18:42 Dose: 50 mg Documented by: JOSE Metoclopramide HCl (Metoclopramide 10 Mg/2 Ml Inj) 5 mg IV Q6HR PRN PRN Reason: Nausea And Vomiting Metoprolol Tartrate (Metoprolol Ir 25 Mg Tablet) 12.5 mg PO DAILY [facility] Naloxone HCl (Naloxone 0.4 Mg/Ml Vial) 0.2 mg IV Q2MIN PRN PRN Reason: Opiate Reversal Ondansetron HCl (Ondansetron 4 Mg/2 Ml Inj) 4 mg IV Q4HR PRN PRN Reason: Nausea And Vomiting Last Admin: 08/17/20 18:32 Dose: 4 mg Documented by: JOSE Oxycodone HCl (Oxycodone Ir 5 Mg Tablet) 5 mg PO Q6H PRN PRN Reason: Pain, Moderate (4-6) Pantoprazole Sodium (Pantoprazole Dr 40 Mg Tablet) 40 mg PO DAILY MARKIE Simethicone (Simethicone 80 Mg Tablet) 80 mg PO QID PRN PRN Reason: abdominal gas Sodium Chloride (Sodium Chloride 0.9% Flush) 10 ml IV BID MARKIE Discontinued Medications Sodium Chloride (Normal Saline 0.9%) 1,000 mls @ 40 mls/hr IV CONT MARKIE Last Infusion: 08/17/20 19:35 Dose: 40 mls/hr Documented by: Infusion: 08/17/20 19:33 Dose: 40 mls/hr Documented by: Infusion: 08/17/20 14:24 Dose: 0 mls/hr Documented by: Infusion: 08/17/20 14:24 Dose: 0 mls/hr Documented by: Admin: 08/17/20 11:33 Dose: 150 mls/hr Documented by: DENNIS Metoprolol Tartrate (Metoprolol Ir 25 Mg Tablet) 25 mg PO NOW ONE Stop: 08/17/20 12:03 Last Admin: 08/17/20 12:39 Dose: 25 mg Documented by: DENNIS Morphine Sulfate (Morphine 2 Mg/Ml Inj) 2 mg IV NOW ONE Stop: 08/17/20 10:34 Last Admin: 08/17/20 11:32 Dose: 2 mg Documented by: DENNIS Morphine Sulfate (Morphine 2 Mg/Ml Inj) 2 mg IV NOW ONE Stop: 08/17/20 13:10 Last Admin: 08/17/20 13:21 Dose: 2 mg Documented by: DENNIS Ondansetron HCl (Ondansetron 4 Mg/2 Ml Inj) 4 mg IV NOW ONE Stop: 08/17/20 10:34 Last Admin: 08/17/20 11:32 Dose: 4 mg Documented by: DENNIS Pantoprazole Sodium (Pantoprazole 40 Mg Vial) 40 mg IV NOW ONE Stop: 08/17/20 10:34 Last Admin: 08/17/20 11:32 Dose: 40 mg Documented by: ATAYLOR Consultations Consultation #1: Dr. Ramirez, does not feel MRCP is warranted at this time. Agrees with observation. Consultation #2: Dr. Brink for pancreatitis, patient also has some component of CHF. Vital Signs Vital signs: Vital Signs - 8 hr 08/17/20 13:30 Pulse Rate 55 L Respiratory Rate 17 Blood Pressure 195/86 H Pulse Oximetry 96 MDM - Abdominal Pain Lab Data Result diagrams: 08/17/20 10:30 08/17/20 10:30 Labs: Lab Results 08/17/20 08/17/20 08/17/20 Range/Units 10:30 10:30 10:30 WBC 7.4 (4.5-11.0) X10^3/uL RBC 3.86 L (4.0-5.2) X10^6/uL Hgb 12.5 (12.0-16.0) g/dL Hct 38.2 (36-46) % MCV 99.0 (80-100) fL MCH 32.3 (26-34) PG MCHC 32.6 (30-36) % RDW 14.5 (11.6-14.8) % Plt Count 291 (150-400) X10^3/uL Neut % (Auto) 69.3 (50-75) % Lymph % (Auto) 22.4 L (25-40) % Haines % (Auto) 7.2 (3-14) % Eos % (Auto) 0.2 L (2-4) % Baso % (Auto) 0.9 (0-2) % Neut # (Auto) 5100 (2647-6890) /uL Lymph # (Auto) 1700 (7544-0045) /uL Haines # (Auto) 500 (0-900) /uL Eos # (Auto) 0 (0-450) /uL Baso # (Auto) 100 (0-100) /uL Sodium 133 L (137-145) mmol/L Potassium 4.2 (3.4-5.1) mmol/L Chloride 97 L (98-107) mmol/L Carbon Dioxide 28 (22-32) mmol/L BUN 10 (7-17) mg/dL Creatinine 0.61 (0.52-1.04) mg/dL Estimated GFR > 60.0 (>60) mL/min BUN/Creatinine Ratio 16.4 (6-22) Glucose 110 (80-110) mg/dL Calcium 10.0 (8.4-10.2) mg/dL Total Bilirubin 0.9 (0.2-1.3) mg/dL AST 69 H (14-36) IU/L ALT 28 (<35) IU/L Alkaline Phosphatase 140 H (38-126) U/L Total Creatine Kinase 33 (30-135) U/L CK-MB (CK-2) TNP CK-MB (CK-2) Rel Index TNP Troponin I < 0.012 (0.01-0.034) ng/mL NT-Pro-B Natriuret Pep 8810 H (<450) pg/mL Total Protein 8.2 (6.3-8.2) g/dL Albumin 4.5 (3.5-5.0) g/dL Globulin 3.7 (1.7-4.1) g/dL Albumin/Globulin Ratio 1.2 (1.0-2.8) Lipase 1138 H (23-300) U/L TSH (0.47-4.68) uIU/mL Urine Color Urine Appearance Urine pH (4.5-8.0) Ur Specific [place] (1.000-1.035) Urine Protein (Negative) Urine Glucose (UA) (Negative) g/dL Urine Ketones (NEGATIVE) Urine Occult Blood (Negative) Urine Nitrate (Negative) Urine Bilirubin (NEGATIVE) Urine Urobilinogen (0.2) E.U./dL Ur Leukocyte Esterase (NEGATIVE) Urine RBC (0-5/HPF) Urine WBC (0-5/HPF) Ur Squamous Epith Cells (0-5/HPF) Urine Bacteria (None) Ur Culture Indicated? Micro UA Comment SARS-CoV-2 (PCR) (Negative) 08/17/20 08/17/20 08/17/20 Range/Units 10:30 10:30 10:36 WBC (4.5-11.0) X10^3/uL RBC (4.0-5.2) X10^6/uL Hgb (12.0-16.0) g/dL Hct (36-46) % MCV (80-100) fL MCH (26-34) PG MCHC (30-36) % RDW (11.6-14.8) % Plt Count (150-400) X10^3/uL Neut % (Auto) (50-75) % Lymph % (Auto) (25-40) % Haines % (Auto) (3-14) % Eos % (Auto) (2-4) % Baso % (Auto) (0-2) % Neut # (Auto) (8439-0878) /uL Lymph # (Auto) (3298-3237) /uL Haines # (Auto) (0-900) /uL Eos # (Auto) (0-450) /uL Baso # (Auto) (0-100) /uL Sodium (137-145) mmol/L Potassium (3.4-5.1) mmol/L Chloride (98-107) mmol/L Carbon Dioxide (22-32) mmol/L BUN (7-17) mg/dL Creatinine (0.52-1.04) mg/dL Estimated GFR (>60) mL/min BUN/Creatinine Ratio (6-22) Glucose (80-110) mg/dL Calcium (8.4-10.2) mg/dL Total Bilirubin (0.2-1.3) mg/dL AST (14-36) IU/L ALT (<35) IU/L Alkaline Phosphatase (38-126) U/L Total Creatine Kinase (30-135) U/L CK-MB (CK-2) CK-MB (CK-2) Rel Index Troponin I (0.01-0.034) ng/mL NT-Pro-B Natriuret Pep (<450) pg/mL Total Protein (6.3-8.2) g/dL Albumin (3.5-5.0) g/dL Globulin (1.7-4.1) g/dL Albumin/Globulin Ratio (1.0-2.8) Lipase (23-300) U/L TSH 2.40 (0.47-4.68) uIU/mL Urine Color Yellow Urine Appearance Clear Urine pH 7.5 (4.5-8.0) Ur Specific [place] 1.010 (1.000-1.035) Urine Protein 1+ H (Negative) Urine Glucose (UA) Negative (Negative) g/dL Urine Ketones Trace H (NEGATIVE) Urine Occult Blood Trace-lysed (Negative) Urine Nitrate Negative (Negative) Urine Bilirubin Negative (NEGATIVE) Urine Urobilinogen 0.2 (0.2) E.U./dL Ur Leukocyte Esterase Negative (NEGATIVE) Urine RBC None seen None seen (0-5/HPF) Urine WBC None seen 0-1/hpf (0-5/HPF) Ur Squamous Epith Cells 0-1 /hpf (0-5/HPF) Urine Bacteria None seen Occasional (0-1) (None) Ur Culture Indicated? Cult not indicated Cult not indicated Micro UA Comment Microscopic normal SARS-CoV-2 (PCR) (Negative) 08/17/20 Range/Units 12:35 WBC (4.5-11.0) X10^3/uL RBC (4.0-5.2) X10^6/uL Hgb (12.0-16.0) g/dL Hct (36-46) % MCV (80-100) fL MCH (26-34) PG MCHC (30-36) % RDW (11.6-14.8) % Plt Count (150-400) X10^3/uL Neut % (Auto) (50-75) % Lymph % (Auto) (25-40) % Haines % (Auto) (3-14) % Eos % (Auto) (2-4) % Baso % (Auto) (0-2) % Neut # (Auto) (9783-5508) /uL Lymph # (Auto) (2081-4104) /uL Haines # (Auto) (0-900) /uL Eos # (Auto) (0-450) /uL Baso # (Auto) (0-100) /uL Sodium (137-145) mmol/L Potassium (3.4-5.1) mmol/L Chloride (98-107) mmol/L Carbon Dioxide (22-32) mmol/L BUN (7-17) mg/dL Creatinine (0.52-1.04) mg/dL Estimated GFR (>60) mL/min BUN/Creatinine Ratio (6-22) Glucose (80-110) mg/dL Calcium (8.4-10.2) mg/dL Total Bilirubin (0.2-1.3) mg/dL AST (14-36) IU/L ALT (<35) IU/L Alkaline Phosphatase (38-126) U/L Total Creatine Kinase (30-135) U/L CK-MB (CK-2) CK-MB (CK-2) Rel Index Troponin I (0.01-0.034) ng/mL NT-Pro-B Natriuret Pep (<450) pg/mL Total Protein (6.3-8.2) g/dL Albumin (3.5-5.0) g/dL Globulin (1.7-4.1) g/dL Albumin/Globulin Ratio (1.0-2.8) Lipase (23-300) U/L TSH (0.47-4.68) uIU/mL Urine Color Urine Appearance Urine pH (4.5-8.0) Ur Specific [place] (1.000-1.035) Urine Protein (Negative) Urine Glucose (UA) (Negative) g/dL Urine Ketones (NEGATIVE) Urine Occult Blood (Negative) Urine Nitrate (Negative) Urine Bilirubin (NEGATIVE) Urine Urobilinogen (0.2) E.U./dL Ur Leukocyte Esterase (NEGATIVE) Urine RBC (0-5/HPF) Urine WBC (0-5/HPF) Ur Squamous Epith Cells (0-5/HPF) Urine Bacteria (None) Ur Culture Indicated? Micro UA Comment SARS-CoV-2 (PCR) Negative (Negative) Imaging Data CT scan - head: Radiologist's Impression: Chana Garrido S 85 F [address] Scan ReportSigned Patient: Chana Garrido [facility]#: [id number]: 1935cct:[id number]/Sex: 85 / FDate of Service: 08/17/20Loc: EDAccession Number: [id number] Procedure: CT head/brain wo con Ordering Provider: Brittnee aHtch D.O. PROCEDURE: CT HEAD/BRAIN WO CON INDICATIONS: falls, abd pain TECHNIQUE: Noncontrast 4.5 mm thick angled axial sections acquired from the foramen magnum to the vertex, with coronal and sagittal reformats. For radiation dose reduction, the following was used: automated exposure control, adjustment of mA and/or kV according to patient size. COMPARISON: [facility], MR, MR STROKE PROTOCOL, 10/30/2017, 22:06. [facility], CT, CT HEAD/BRAIN WO CON, 12/03/2017, 16:01. FINDINGS: Image quality: Excellent. CSF spaces: Basal cisterns are patent. No extra-axial fluid collections. The ventricles are symmetric in size and shape. 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 Old wedge-shaped infarct noted in the right cerebellum as well. No intracranial bleeds or masses. There is cerebral volume loss for age, with resultant ventricular and sulcal prominence. There are periventricular and deep white matter chronic small vessel ischemic changes. There is intracranial internal carotid artery atherosclerosis. Skull and face: Calvarium and visualized facial bones appear intact, without suspicious lesions. Incidental hyperostosis frontalis interna noted. Right frontal calcified scalp nodule also remains unchanged. Sinuses: Visualized sinuses and mastoids are clear. IMPRESSION: No acute intracranial findings. 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 Dictated by: Garo Gallegos M.D. on 08/17/2020 at 10:26 Approved by: Garo Gallegos M.D. on 08/17/2020 at 10:37 Chest x-ray: Radiologist's Impression: Chana Garrido 85 F [address] [id number] ReportSigned Patient: Chana Garrido [facility]#: [id number]: 1935cct:[id number]/Sex: 85 / FDate of Service: 08/17/20Loc: EDAccession Number: [id number] Procedure: XR chest 1V Ordering Provider: Brittnee Hatch D.O. PROCEDURE: XR CHEST 1V INDICATIONS: falls, abdominal pain TECHNIQUE: One view of the chest was acquired. COMPARISON: [facility], CR, XR CHEST 2V, 01/10/2019, 5:32. [facility], CR, XR CHEST 1V, 01/06/2019, 14:14. FINDINGS: Surgical changes and devices: Status post CABG procedure Lungs and pleura: Lungs are clear. No pleural effusions or pneumothorax. Mediastinum: Mediastinal contours appear normal. Heart size is normal. Bones and chest wall: No suspicious bony lesions. Overlying soft tissues appear unremarkable. IMPRESSION: No acute cardiopulmonary disease process. Dictated by: Kristel Salinas MD, PhD on 08/17/2020 at 11:05 Approved by: Kristel Salinas MD, PhD on 08/17/2020 at 11:07 CT scan - abdomen/pelvis: Radiologist's Impression: [place] [id number] [place] [id number] Scan ReportSigned Patient: Chana Garrido [facility]#: [id number]: 8Acct:[id number]/Sex: 85 / FDate of Service: 08/17/20Loc: EDAccession Number: [id number] Procedure: CT abdomen pelvis w con Ordering Provider: Brittnee Hatch D.O. PROCEDURE: CT ABDOMEN PELVIS W CON INDICATIONS: abdominal pain, ? vomiting, dark stools, recent falls. TECHNIQUE: After the administration of intravenous contrast, axial sections acquired from the lung bases to the pubic symphysis. Coronal and sagittal reformats were performed. For radiation dose reduction, the following was used: automated exposure control, adjustment of mA and/or kV according to patient size. COMPARISON: [facility], CT, CT ABDOMEN PELVIS W CON, 02/13/2019, 13:56. [facility], CT, CT ABDOMEN PELVIS W CON, 01/11/2019, 10:17. [facility], , [place] BARIUM SWALLOW W SPEECH, 01/12/2019, 8:29. [facility], CT, CT ABDOMEN PELVIS W CON, 04/07/2020, 11:25. FINDINGS: Lower thorax: Heart size is enlarged. Midline sternal wires noted. Lung bases are clear. Small left pleural effusion noted. Liver: Normal in size and attenuation. No contour deformity present. Biliary system: Cholecystectomy. CBD is prominent at 1.1 cm. Mild intrahepatic biliary ductal prominence present as well. Pancreas: Unremarkable without mass or inflammation evident. Spleen: Normal in size and density. Adrenals: Normal morphology and density. Reproductive system: Hysterectomy. Urinary system: Normal renal size and attenuation. 2 cm simple right renal cyst. No renal calculi, hydronephrosis, or solid mass present. Urinary bladder unremarkable. Gastrointestinal system: The bowel appears unremarkable with no evidence of bowel obstruction or inflammation. The stomach is under distended, and shows fundal wall thickening, similar to the priors. Multiple diverticula arise from the sigmoid colon without evidence of diverticulitis. Appendix: No findings to suggest acute appendicitis. Peritoneal spaces: No mesenteric or retroperitoneal adenopathy. No free air. No free fluid. Vasculature: Aortic atherosclerotic vascular calcification noted without evidence of aneurysm. Musculoskeletal: Normal bone mineralization. No acute fractures. Abdominal wall intact without evidence of ventral or inguinal hernias. Degenerative changes noted involving the lumbar spine without compression fracture. IMPRESSION: 1. No acute CT abdomen and pelvis findings. 2. Prominent intra and extrahepatic bile ducts status post cholecystectomy. CBD measures 1.1 cm, similar prior exams. MRCP could be considered for further evaluation. 3. Gastric fundal wall thickening probably related to underdistention. No change from prior exams 4. Small left pleural effusion. Dictated by: Garo Gallegos M.D. on 08/17/2020 at 10:37 Approved by: Garo Gallegos M.D. on 08/17/2020 at 10:54 ECG Data Interpretation: AFib rate of 94, QRS [address] changes 2 3 AVF with inverted T-wave. Patient has prior EKGs from 04/07/2020 and before which appear similar. MDM Narrative Medical decision making narrative: This is an 85-year-old female comes in with complaint of nausea and vomiting, diarrhe and black stools with abdominal pain. Patient is quite negative in the department. Patient states she has had falls somewhat recently possibly in the last week. She states she did hit her head. She is supposed to be on apixaban. Patient also has some old bruise on her left upper chest. Head CT is negative, chest x-ray is negative. Patient's labs do show an elevated lipase she does not have clear pancreatic changes on her CT, patient does have CBD is 1.1 cm with some prominent intra and extrahepatic bile ducts. And gastric fundal wall thickening likely related to underdistention. There is a small left pleural effusion noted as well. Patient does have elevated BNP, most likely component of CHF, troponin is negative. Patient also has prior EKGs which appear similar. Discussed with General surgery who does not feel patient warrants MRCP at this point. Was agrees with observation and treatment as pancreatitis. Discussed with hospitalist who accepts for admission. Discharge Plan Departure Patient Disposition: Admitted as Observation Clinical Impression: Acute pancreatitis Admit Date/Time: 08/17/20 13:33 Admit Provider: Elan Brink
[2020-08-17 10:42] LABS: Add Manual Diff / Slide Review NO; Basophils Absolute Auto 100 /uL (0-100); Basophils Percent Auto 0.9 % (0-2); Eosinophils Absolute Auto 0 /uL (0-450); Eosinophils Percent Auto 0.2 % (2-4); Hematocrit 38.2 % (36-46); Hemoglobin 12.5 g/dL (12.0-16.0); Lymphocytes Absolute Auto 1700 /uL (1100-4500); Lymphocytes Percent Auto 22.4 % (25-40); Mean Corpuscular HGB Conc 32.6 % (30-36); Mean Corpuscular Hemoglobin 32.3 PG (26-34); Monocytes Absolute Auto 500 /uL (0-900); Monocytes Percent Auto 7.2 % (3-14); Neutrophils Absolute Auto 5100 /uL (1500-7000); Neutrophils Percent Auto 69.3 % (50-75); Platelet Count 291 X10^3/uL (150-400); Red Blood Cell Count 3.86 X10^6/uL (4.0-5.2); Red Cell Distribution Width 14.5 % (11.6-14.8); White Blood Cell Count 7.4 X10^3/uL (4.5-11.0)
[2020-08-17 10:51] LABS: Alanine Aminotransferase 28 IU/L (<35); Albumin 4.5 g/dL (3.5-5.0); Albumin Globulin Ratio 1.2 (1.0-2.8); Alkaline Phosphatase 140 U/L (38-126); Aspartate Aminotransferase 69 IU/L (14-36); BUN Creatinine Ratio 16.4 (6-22); Bilirubin Total 0.9 mg/dL (0.2-1.3); Blood Urea Nitrogen 10 mg/dL (7-17); Carbon Dioxide 28 mmol/L (22-32); Chloride 97 mmol/L (98-107); Creatine Kinase 33 U/L (30-135); Estimated Glomerular Filt Rate > 60.0 mL/min (>60); Globulin 3.7 g/dL (1.7-4.1); Glucose 110 mg/dL (80-110); HEMOLYSIS 21 (0-50); Lipase 1138 U/L (23-300); Potassium 4.2 mmol/L (3.4-5.1); Sodium 133 mmol/L (137-145); Total Protein 8.2 g/dL (6.3-8.2)
[2020-08-17 11:03] LABS: NT-proBNP (BNP-Adult 18+) 8810 pg/mL (<450); Troponin I < 0.012 ng/mL (0.01-0.034)
[2020-08-17] MEDS: PANTOPRAZOLE 40 MG VIAL IV (11:32)
[2020-08-17] MEDS: ONDANSETRON 4 MG/2 ML INJ IV ×2 (11:32→18:32)
[2020-08-17] MEDS: MORPHINE 2 MG/ML INJ IV ×2 (11:32→13:21)
[2020-08-17] MEDS: SODIUM CHLORIDE 0.9% 1,000 ML 150 ML IV (11:33)
[2020-08-17 12:00] LABS: Bacteria Urine None Seen; RBC Urine None Seen (0-5/HPF); WBC Urine None Seen (0-5/HPF)
[2020-08-17 12:09] LABS: Culture Indicated Urine Cult Not Indicated; Urine Comments Microscopic Normal
[2020-08-17 12:24] LABS: RBC Urine None Seen (0-5/HPF)
[2020-08-17 12:25] LABS: Appearance Urine UA CLEAR; Bilirubin Urine UA NEGATIVE (NEGATIVE); Color Urine UA YELLOW; Glucose Urine UA NEGATIVE (Negative); Ketones Urine UA TRACE (NEGATIVE); Leukocyte Esterase Urine UA NEGATIVE (NEGATIVE); Nitrite Urine UA NEGATIVE (Negative); Occult Blood Urine UA TRACE-LYSED (Negative); Protein Urine UA 1+ (Negative); Urobilinogen Urine UA 0.2 E.U./dL (0.2)
[2020-08-17 12:30] LABS: pH Urine UA 7.5 (4.5-8.0)
[2020-08-17 12:37] LABS: Bacteria Urine Occasional (0-1); Culture Indicated Urine Cult Not Indicated; Squamous Epithelial Cell Urine 0-1 /HPF (0-5/HPF); WBC Urine 0-1/HPF (0-5/HPF)
[2020-08-17] MEDS: METOPROLOL IR 25 MG TABLET PO (12:39)
[2020-08-17 13:47] LABS: COVID19 - ADMIT (NP swab/PCR) Negative (Negative)
--- NOTE | 2020-08-17 14:27 | PC.NURSE ---
Day shift: Pt on AC unit at approx 1430 from ED. Awaiting MD orders. IV set to TKO at ths time. Hx CHF. Used slider board to place Pt in bed. BP 180/81. Pt is A&Ox4 but she didn't know the day of the week. Recent falls. High fall risk. Oriented to room and call light. Bed alarm is on.
--- NOTE | 2020-08-17 16:00 | DI.CT.S_ITS ---
PROCEDURE: CT ANGIO ABDOMEN PELVIS INDICATIONS: eval mesenteric ischemia TECHNIQUE: After the administration of intravenous contrast, 2.5 mm sections acquired from the diaphragm to the iliac crests. 10 mm maximum intensity projection (MIP) coronal and sagittal reformats were then performed. For radiation dose reduction, the following was used: automated exposure control. COMPARISON: [facility], CT, CT ABDOMEN PELVIS W CON, 08/17/2020, 11:12. FINDINGS: Image quality: Excellent. Extravascular tissues: Minimal left effusion is present. Heart size is enlarged. Liver is normal in size and enhancement. Gallbladder has been removed. Biliary system is non dilated. Pancreas enhances normally. Spleen is normal in size and enhancement. No adrenal nodules. Kidneys are normal in size and enhancement, without hydronephrosis: Distal colon is incompletely distended. Colonic diverticula are present. No free fluid or air. No retroperitoneal or mesenteric adenopathy. No ventral hernias. No suspicious bony abnormalities. No vertebral body compression fractures. Abdominal aorta: The abdominal aorta demonstrates areas of wall calcification consistent with atherosclerotic disease. No evidence of aneurysm or dissection. Mesenteric arteries: The celiac axis and superior mesenteric arteries are well opacified. The inferior mesenteric artery is diminutive with portions of opacification visualized. Renal arteries: Renal arteries are widely patent. IMPRESSION: 1. Diminutive appearance of the inferior mesenteric artery, appearing opacified within visualized portions. 2. Colonic diverticula without visualized inflammatory change. 3. Mildly thickened appearance of the distal colon suspected to be secondary to incomplete distention, given lack of surrounding inflammatory change. Dictated by: Rosemarie Meehan M.D. on 08/17/2020 at 17:07 Approved by: Rosemarie Meehan M.D. on 08/17/2020 at 17:16
--- NOTE | 2020-08-17 16:05 | P.HP_ITS ---
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 She reported diarrhea with black stools although stool tested guaiac negative in the ED. She reports recurrent bouts of emesis and has not eaten much but states maintaining good fluid intake. She reports abdominal pain more loca lized to the right upper quadrant radiating to pelvis. She denies chest pains, shortness of breath, fevers or cough. She also mentions discomfort with urinating although had normal urinalysis microscopic in ED. On labs, her CBC is unremarkable, LFTs normal except mild elevated AST of 69, and BNP 8800, and lipase elevated at 1138. She has previous elevated lipase level is around 600 back in March of this year when evaluated in the ED for abdominal pain. CT scan of abdomen and pelvis showed aortic atherosclerosis, prominent intra and extra hepatic bile ducts consistent with known history of cholecystectomy, gastric fundal wall thickening probably related to under distention, small left pleural effusion. Patient has history of chronic/recurrent abdominal pain, vomiting and diarrhea for which she has had several ER visits over the years and has also seen GI for outpatient consultation apparently without specific diagnosis per PCP office notes. She states that more recently she has been relatively symptom-free until a couple of days ago when she started having the symptoms again. Patient further states that she has lost 50-60 lb in the past year although review of weights in [employer] suggest the weight loss has been more gradual over the past 2-3 years. Review of systems further positive for insomnia, diminished mood, psychosocial stressors with abandonment by daughter. Patient states her son lives with her and takes care of her. 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) Asthma Breast cancer (~2001) CAD (coronary artery disease) Calcified nodule Cerebrovascular accident (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 right middle cerebral artery (04/27/17) Cervical cancer, FIGO stage I Cholelithiasis Chronic back pain Developmental disorder Essential hypertension (02/19/12) Fibrocystic breast disease GERD (gastroesophageal reflux disease) History of colon polyps (02/19/12) History of left breast cancer (~2008) Hyperlipidemia IBS (irritable bowel syndrome) Measles 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, bilateral Personal history of other malignant neoplasm of skin (02/19/12) 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) Systolic congestive heart failure with reduced left ventricular function, NYHA class 2 (10/26/10) Surgical History Anesthesia Status post arthroscopy Status post biopsy (~2014) Status post breast lumpectomy (~2008) Status post cholecystectomy Status post coronary artery bypass graft Status post hysterectomy (~2009) Family & Social History Social History: household members children Safety & Behavioral: Feels Safe in Current Yes Environment Been Physically Hurt or No Threatened By a Person Tobacco & Substance use: Smoking Status Never smoker alcohol intake never alcohol intake frequency holiday/special occasion Substance Use Type does not use Meds Home Medications and Allergies Home Medications Medication Instructions Recorded Confirmed Type Spacer: Inhaler Spacer Device 1 ea MISCELLANEOUS DIRECTED 10/27/17 03/09/20 History mupirocin 2 % topical ointment 1 applic TOPICAL DIRECTED 12/03/17 03/09/20 History Handicap Parking #1 ea 06/04/18 03/09/20 Rx ondansetron HCl 4 mg tablet 4 mg PO Q6H PRN #20 tab 02/13/19 03/09/20 Rx albuterol sulfate 90 mcg/actuation 2 puff INHALATION Q6H PRN #8 gram 02/22/19 03/09/20 Rx aerosol inhaler (Proventil HFA) diazepam 5 mg tablet See Rx Instructions PO TID PRN #90 02/23/19 03/09/20 Rx tab inhalational spacing device #1 each 03/24/19 03/09/20 Rx (Aerochamber MV) aspirin 81 mg chewable tablet 81 mg PO DAILY 12/23/19 03/09/20 History metoprolol tartrate 25 mg tablet 12.5 mg PO DAILY tab 12/23/19 03/09/20 History atorvastatin 40 mg tablet 40 mg PO BEDTIME #90 tab 12/26/19 03/09/20 Rx losartan 50 mg tablet 50 mg PO DAILY #90 tab 12/26/19 03/09/20 Rx nitroglycerin 0.4 mg sublingual See Rx Instructions SUBLINGUAL PRN 12/26/19 03/09/20 Rx tablet (Nitrostat) PRN #30 tab pantoprazole 40 mg tablet,delayed 40 mg PO DAILY #90 tab 12/26/19 03/09/20 Rx release ferrous sulfate 325 mg (65 mg 325 mg PO DAILY #60 tab 02/13/20 03/09/20 Rx iron) tablet gabapentin 300 mg capsule 300 mg PO TID #90 cap 03/21/20 Rx (Neurontin) hydrocodone 5 mg-acetaminophen 325 1 tab PO Q6H PRN #120 tab 07/27/20 Rx mg tablet apixaban 5 mg tablet 5 mg PO BID #180 tab 08/01/20 Rx Allergies Allergy/AdvReac Type Severity Reaction Status Date / Time furosemide [FUROSEMIDE] Allergy Mild RASH Verified 08/17/20 10:43 sertraline [SERTRALINE] Allergy Mild FEELS Verified 08/17/20 10:43 DRUGGED lisinopril AdvReac Mild Cough Verified 08/17/20 10:43 Review of Systems Review of Systems Narrative: All review of systems negative unless otherwise stated Exam Vital Signs (past 8 hours): - 08/17/20 10:00 08/17/20 10:37 08/17/20 10:45 Temperature 98.2 F Pulse Rate 88 90 93 H Respiratory Rate 17 17 15 Blood Pressure 202/102 H 152/87 H Pulse Oximetry 97 08/17/20 11:00 08/17/20 11:01 08/17/20 11:22 Temperature Pulse Rate 89 90 98 H Respiratory Rate 18 17 24 Blood Pressure 195/96 H Pulse Oximetry 100 08/17/20 11:23 08/17/20 11:30 08/17/20 11:45 Temperature Pulse Rate 100 H 88 102 H Respiratory Rate 22 35 H 23 Blood Pressure 205/104 H 210/91 H Pulse Oximetry 98 98 08/17/20 12:00 08/17/20 12:01 08/17/20 12:15 Temperature Pulse Rate 87 82 88 Respiratory Rate 17 17 17 Blood Pressure 201/88 H 198/91 H Pulse Oximetry 97 97 97 08/17/20 12:30 08/17/20 12:45 08/17/20 13:00 Temperature Pulse Rate 82 81 75 Respiratory Rate 16 19 17 Blood Pressure 179/90 H 193/91 H 196/91 H Pulse Oximetry 96 98 95 08/17/20 13:15 08/17/20 13:30 08/17/20 13:45 Temperature Pulse Rate 64 55 L 57 L Respiratory Rate 16 17 21 Blood Pressure 192/90 H 195/86 H Pulse Oximetry 95 96 97 08/17/20 13:46 08/17/20 14:00 08/17/20 15:00 Temperature 97.6 F Pulse Rate 56 L 50 L 58 L Respiratory Rate 16 23 14 Blood Pressure 181/84 H 168/79 H 180/81 H Pulse Oximetry 95 95 95 Oxygen Delivery Method Room Air Narrative Exam Narrative: General: Thin worried appearing female not currently in acute distress HEENT: Pupils equal, anicteric, EOMI, mild left facial droop from previous CVA Neck: No cervical or supraclavicular lymphadenopathy Lungs: Clear to auscultation Heart: Normal S1 and S2, regular rate and rhythm, slight systolic murmur Abdomen: Nondistended, soft, tender to palpation but nontender when patient distracted, no abdominal mass, no HSM Extremities: No cyanosis, no edema Neurological: Oriented to person and place, speech slightly slurred but easily understandable, no difficulty following instructions, no pronator drift, no leg drift Objective Labs Result Diagrams: 08/17/20 10:30 08/17/20 10:30 Labs: Laboratory Results - last 24 hr 08/17/20 08/17/20 08/17/20 10:30 10:30 10:30 WBC 7.4 RBC 3.86 L Hgb 12.5 Hct 38.2 MCV 99.0 MCH 32.3 MCHC 32.6 RDW 14.5 Plt Count 291 Neut % (Auto) 69.3 Lymph % (Auto) 22.4 L [place] % (Auto) 7.2 Eos % (Auto) 0.2 L Baso % (Auto) 0.9 Neut # (Auto) 5100 Lymph # (Auto) 1700 [place] # (Auto) 500 Eos # (Auto) 0 Baso # (Auto) 100 Sodium 133 L Potassium 4.2 Chloride 97 L Carbon Dioxide 28 BUN 10 Creatinine 0.61 Estimated GFR > 60.0 BUN/Creatinine Ratio 16.4 Glucose 110 Calcium 10.0 Total Bilirubin 0.9 AST 69 H ALT 28 Alkaline Phosphatase 140 H Total Creatine Kinase 33 CK-MB (CK-2) TNP CK-MB (CK-2) Rel Index TNP Troponin I < 0.012 NT-Pro-B Natriuret Pep 8810 H Total Protein 8.2 Albumin 4.5 Globulin 3.7 Albumin/Globulin Ratio 1.2 Lipase 1138 H Urine Color Urine Appearance Urine pH Ur Specific [place] Urine Protein Urine Glucose (UA) Urine Ketones Urine Occult Blood Urine Nitrate Urine Bilirubin Urine Urobilinogen Ur Leukocyte Esterase Urine RBC Urine WBC Ur Squamous Epith Cells Urine Bacteria Ur Culture Indicated? Micro UA Comment SARS-CoV-2 (PCR) 08/17/20 08/17/20 08/17/20 10:30 10:30 12:35 WBC RBC Hgb Hct MCV MCH MCHC RDW Plt Count Neut % (Auto) Lymph % (Auto) [place] % (Auto) Eos % (Auto) Baso % (Auto) Neut # (Auto) Lymph # (Auto) [place] # (Auto) Eos # (Auto) Baso # (Auto) Sodium Potassium Chloride Carbon Dioxide BUN Creatinine Estimated GFR BUN/Creatinine Ratio Glucose Calcium Total Bilirubin AST ALT Alkaline Phosphatase Total Creatine Kinase CK-MB (CK-2) CK-MB (CK-2) Rel Index Troponin I NT-Pro-B Natriuret Pep Total Protein Albumin Globulin Albumin/Globulin Ratio Lipase Urine Color Yellow Urine Appearance Clear Urine pH 7.5 Ur Specific [place] 1.010 Urine Protein 1+ H Urine Glucose (UA) Negative Urine Ketones Trace H Urine Occult Blood Trace-lysed Urine Nitrate Negative Urine Bilirubin Negative Urine Urobilinogen 0.2 Ur Leukocyte Esterase Negative Urine RBC None seen None seen Urine WBC None seen 0-1/hpf Ur Squamous Epith Cells 0-1 /hpf Urine Bacteria None seen Occasional (0-1) Ur Culture Indicated? Cult not indicated Cult not indicated Micro UA Comment Microscopic normal SARS-CoV-2 (PCR) Negative Assessment & Plan Assessment & Plan narrative: 1. Acute vomiting, diarrhea and abdominal pain -patient has history of chronic/recurrent abdominal pain, vomiting and diarrhea which has been worked up in the past without specific diagnosis, unclear whether current symptoms are an exacerbation of her chronic condition. -her exam is unremarkable, CT without acute findings, lipase is moderately elevated which is of unclear significance, acute idiopathic pancreatitis is in differential but patient has history of prior cholecystectomy and denies alcohol use -cannot rule out chronic mesenteric ischemia in this patient with known coagulopathy, atherosclerotic vascular disease and atrial fibrillation as well as history of severe weight loss over the past 2-3 years -abdominal CT angio ordered to evaluate for mesenteric occlusion and embolism, patient claustrophobic and can not do MRI -patient appears well hydrated in spite of symptoms, due to CHF history at risk for volume overload, -IV Hep-Lock after 500 cc NS -clear liquid diet -oxycodone 5 mg as needed, Tylenol as needed -IV Zofran and Reglan as needed for nausea/vomiting -continue pantoprazole per home routine 2. Chronic systolic heart failure without exacerbation -patient has reported rash to furosemide and not on diuretic management -chest x-ray no acute disease -echo 01/07/2019 LVEF 35-40%, moderate global hypokinesis, decreased RV systolic function, moderate MR -continue losartan 50 mg q.d. and metoprolol tartrate 12.5 mg q.d. and atorvastatin 40 mg HS 3. Chronic atrial fibrillation with controlled rate -EKG: AFib, LVH, nonspecific ST and T-wave abnormality, no change from previous -continue apixaban 5 mg b.i.d. and metoprolol 12.5 mg q.d. for rate control -telemetry monitoring 4. History of coagulopathy, multiple CVA, and CAD -continue aspirin 81 mg q.d., apixaban per home routine 5. Chronic pain with opioid dependency -patient reports chronic generalized pain, takes gabapentin and hydrocodone twice daily -continue gabapentin 300 mg t.i.d. 6. Depression -patient in appears depressed and anxious, which appears chronic, allergies list side effects to sertraline -consider initiation of antidepressant such as mirtazapine prior to discharge 7. Severe abnormal weight loss -probable 50-60 lb gradual unintentional weight loss in the last 3 years may be from chronic mesenteric mesenteric ischemia versus depression versus less likely occult malignancy -nutrition consult Admission status: Observation Code status: Full code DVT prophylaxis: On anticoagulant DPOA: Son
[2020-08-17] MEDS: LOSARTAN 50 MG TABLET PO (18:42)
[2020-08-17] MEDS: ATORVASTATIN 20 MG TABLET 40 MG PO (21:20)
[2020-08-17] MEDS: GABAPENTIN 300 MG CAPSULE PO (21:20)
[2020-08-17] MEDS: APIXABAN 5 MG TABLET PO (21:20)
--- NOTE | 2020-08-17 22:22 | PC.NURSE ---
A&O X4; pt reports moderate pain to RUQ with more pain while urinating; swallows pills whole with water; nausea at 1830, IV Zofran; Tele A fib abel at 59 bpm; pt declines dinner due to nausea; bed alarm active
[2020-08-17] MEDS: METOCLOPRAMIDE 10 MG/2 ML INJ 5 MG IV (23:49)
[2020-08-18] VITALS (10 sets, daily range): BP systolic 116–163; BP diastolic 58–77; PULSE 58–83; RESP 14–21; TEMP 36.1–37.1; O2SAT 95–99
[2020-08-18] MEDS: LOSARTAN 50 MG TABLET PO (09:02)
[2020-08-18] MEDS: ASPIRIN 81 MG CHEW TAB PO (09:02)
[2020-08-18] MEDS: METOPROLOL IR 25 MG TABLET 12.5 MG PO (09:02)
[2020-08-18] MEDS: APIXABAN 5 MG TABLET PO ×2 (09:02→21:19)
[2020-08-18] MEDS: GABAPENTIN 300 MG CAPSULE PO ×3 (09:02→21:19)
[2020-08-18] MEDS: PANTOPRAZOLE DR 40 MG TABLET PO (09:03)
[2020-08-18] MEDS: SODIUM CHLORIDE 0.9% FLUSH 10 ML IV ×2 (09:03→21:20)
[2020-08-18] MEDS: OXYCODONE IR 5 MG TABLET PO ×2 (09:13→17:53)
[2020-08-18 09:15] LABS: Add Manual Diff / Slide Review NO; Basophils Absolute Auto 100 /uL (0-100); Basophils Percent Auto 1.2 % (0-2); Eosinophils Absolute Auto 100 /uL (0-450); Hematocrit 36.2 % (36-46); Hemoglobin 11.9 g/dL (12.0-16.0); Lymphocytes Absolute Auto 1700 /uL (1100-4500); Lymphocytes Percent Auto 23.3 % (25-40); Mean Corpuscular HGB Conc 32.8 % (30-36); Mean Corpuscular Hemoglobin 32.5 PG (26-34); Monocytes Absolute Auto 700 /uL (0-900); Monocytes Percent Auto 9.2 % (3-14); Neutrophils Absolute Auto 4800 /uL (1500-7000); Neutrophils Percent Auto 65.3 % (50-75); Platelet Count 220 X10^3/uL (150-400); Red Blood Cell Count 3.66 X10^6/uL (4.0-5.2); Red Cell Distribution Width 14.4 % (11.6-14.8); White Blood Cell Count 7.4 X10^3/uL (4.5-11.0)
[2020-08-18 09:24] LABS: Alanine Aminotransferase 42 IU/L (<35); Albumin 3.7 g/dL (3.5-5.0); Albumin Globulin Ratio 1.2 (1.0-2.8); Alkaline Phosphatase 136 U/L (38-126); Aspartate Aminotransferase 52 IU/L (14-36); BUN Creatinine Ratio 12.7 (6-22); Bilirubin Total 0.6 mg/dL (0.2-1.3); Blood Urea Nitrogen 9 mg/dL (7-17); Calcium 9.4 mg/dL (8.4-10.2); Carbon Dioxide 29 mmol/L (22-32); Chloride 100 mmol/L (98-107); Estimated Glomerular Filt Rate > 60.0 mL/min (>60); Globulin 3.2 g/dL (1.7-4.1); Glucose 93 mg/dL (80-110); HEMOLYSIS 19 (0-50); Lipase 54 U/L (23-300); Potassium 4.3 mmol/L (3.4-5.1); Sodium 133 mmol/L (137-145); Total Protein 6.9 g/dL (6.3-8.2)
--- NOTE | 2020-08-18 09:41 | PC.NURSE ---
Addendum entered by Radha Ybarra R.N. 08/18/20 12:05: Gave son, Heath, an update via phone. Heath said he may stop by later. pt stated we can discuss plan and care with Heath. Original Note: AM Shift note. pt AO and receptive to care. Mumbled speech but appropriate answers. Reporting 5/10 pain to lower ABD at start of shift, tender to the touch, administered 5mg Oxycodone with pt reporting pain improvement. Eating and tolerating clear diet and reporting an increase in appetite with mild nausea (pt declined any medications to assist). Up 1PA to BR, self reporting feeling steady. Lungs clear and diminished throughout and active bowel tones.
--- NOTE | 2020-08-18 11:57 | CM.DANOTE ---
DCP: Case received, EMR reviewed and met with patient. Introduced self and role. Was able to obtain information from patient regarding her baseline activity status prior to hospitalization, as well as her current living situation. DCP assessment completed with information currently available. Patient is an 85 year old female who admitted yesterday afternoon to the care of the hospitalist team. PCP: Dr. Tapia. Payer: confirmed: Medicare/[employer] for [employer]. Patient came to the hospital via ambulance from home secondary to having increased abdominal pain. She was also having some nausea and vomiting. She had an increase in lipase as well. She is here for a GI workup. Patient also has history of falls as well as weight loss. Met with patient in her room. She was laying in bed. Confirmed with her that she resides with her son in [place] in a mobile home. She verified that he takes care of her, helps with showers, meals. She does not drive, and son takes her to appointments. She stated that she uses a cane, but can walk without it if needed. P: DCP to continue to follow and will be available for any resources needed. Patient should be able to go home when she is medically stable. Will see if P.T. will be ordered. Tiffanie Morse RN/Oncology Technician
[2020-08-18] MEDS: ACETAMINOPHEN 325 MG TABLET 650 MG PO (14:18)
--- NOTE | 2020-08-18 17:25 | P.DS_ITS ---
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 She reported diarrhea with black stools although stool tested guaiac negative in the ED. She reports recurrent bouts of emesis and has not eaten much but states maintaining good fluid intake. She reports abdominal pain more local ized to the right upper quadrant radiating to pelvis. She denies chest pains, shortness of breath, fevers or cough. She also mentions discomfort with urinating although had normal urinalysis microscopic in ED. On labs, her CBC is unremarkable, LFTs normal except mild elevated AST of 69, and BNP 8800, and lipase elevated at 1138. She has previous elevated lipase level is around 600 back in March of this year when evaluated in the ED for abdominal pain. CT scan of abdomen and pelvis showed aortic atherosclerosis, prominent intra and extra hepatic bile ducts consistent with known history of cholecystectomy, gastric fundal wall thickening probably related to under distention, small left pleural effusion. Patient has history of chronic/recurrent abdominal pain, vomiting and diarrhea for which she has had several ER visits over the years and has also seen GI for outpatient consultation apparently without specific diagnosis per PCP office notes. She states that more recently she has been relatively symptom-free until a couple of days ago when she started having the symptoms again. Patient further states that she has lost 50-60 lb in the past year although review of weights in [place] suggest the weight loss has been more gradual over the past 2-3 years. Review of systems further positive for insomnia, diminished mood, psychosocial stressors with abandonment by daughter. Patient states her son lives with her and takes care of her. Discharge Providers Provider Date of admission: 08/17/20 13:33 Discharge Date: 08/18/20 Primary care physician: Heather Tapia DO Consults: 08/17/20 16:11 Consult to Dietitian, Adult Routine Comment: Reason For Exam: decreased food intake Discharge provider: Elan Brink MD Summary Hospital Course Discharge Diagnosis: 1. Acute vomiting, diarrhea and abdominal pain likely exacerbation of chronic undetermined condition 2. Chronic systolic heart failure without exacerbation 3. Chronic atrial fibrillation 4. Chronically anticoagulated 5. Chronic pain with opioid dependency 6. Severe depression 7. Severe unintentional abnormal weight loss 8. Elevated lipase likely chronic of unknown significance 1. Acute vomiting, diarrhea and abdominal pain -patient has history of chronic/recurrent abdominal pain, vomiting and diarrhea which has been worked up in the past without specific diagnosis, -likely current symptoms are an exacerbation of her chronic condition. -her exam is unremarkable, CT without acute findings, labs unremarkable except lipase is moderately elevated which is of unclear significance, acute idiopathic pancreatitis is in differential but patient has history of prior cholecystectomy and denies alcohol use -cannot rule out chronic mesenteric ischemia in this patient with known coagulopathy, atherosclerotic vascular disease and atrial fibrillation as well as history of severe weight loss over the past 2-3 years -abdominal CT angio was ordered to evaluate for mesenteric occlusion and embolism, patient claustrophobic and can not do MRI, -CT angio was fairly unremarkable with well opacified celiac and SMA arteries and diminutive BRO wich was partially opacified -patient appears well hydrated in spite of symptoms, due to CHF history at risk for volume overload, -IV Hep-Lock after 500 cc NS -clear liquid diet -oxycodone 5 mg as needed, Tylenol as needed -IV Zofran and Reglan as needed for nausea/vomiting -continue pantoprazole per home routine -patient's condition remained the same, abdominal tenderness not present when patient distracted -treat depression, see below 2. Chronic systolic heart failure without exacerbation -patient has reported rash to furosemide and not on diuretic management -chest x-ray no acute disease -echo 01/07/2019 LVEF 35-40%, moderate global hypokinesis, decreased RV systolic function, moderate MR -continue losartan 50 mg q.d. and metoprolol tartrate 12.5 mg q.d. and atorva statin 40 mg HS 3. Chronic atrial fibrillation with controlled rate -EKG: AFib, LVH, nonspecific ST and T-wave abnormality, no change from previous -continue apixaban 5 mg b.i.d. and metoprolol 12.5 mg q.d. for rate control -telemetry monitoring 4. History of coagulopathy, multiple CVA, and CAD -continue aspirin 81 mg q.d., apixaban per home routine 5. Chronic pain with opioid dependency -patient reports chronic generalized pain, takes gabapentin and hydrocodone twice daily -continue gabapentin 300 mg t.i.d. 6. Depression -patient shows evidence of severe depression and anxiety, has chronic insomnia, unintentional weight loss -patient agrees to start mirtazapine 7.5 mg HS 7. Severe abnormal weight loss -unclear etiology, more likely depression related Status at Discharge Overall status at discharge: patient is back to baseline Time Spent with Patient Time spent: Greater than 30 minutes Exam Vital Signs (past 8 hours): - 08/18/20 11:20 08/18/20 13:00 08/18/20 15:50 Temperature 97.8 F 97.0 F L Pulse Rate 60 64 63 Respiratory Rate 14 16 21 Blood Pressure 116/58 L 138/72 Pulse Oximetry 95 97 98 Oxygen Delivery Method Room Air Oxygen Flow Rate 0 Objective Labs Result Diagrams: 08/18/20 09:06 08/18/20 09:06 Labs: Laboratory Results - last 24 hr 08/17/20 08/18/20 08/18/20 10:36 09:06 09:06 WBC 7.4 RBC 3.66 L Hgb 11.9 L Hct 36.2 MCV 99.0 MCH 32.5 MCHC 32.8 RDW 14.4 Plt Count 220 Neut % (Auto) 65.3 Lymph % (Auto) 23.3 L [place] % (Auto) 9.2 Eos % (Auto) 1.0 L Baso % (Auto) 1.2 Neut # (Auto) 4800 Lymph # (Auto) 1700 [place] # (Auto) 700 Eos # (Auto) 100 Baso # (Auto) 100 Sodium 133 L Potassium 4.3 Chloride 100 Carbon Dioxide 29 BUN 9 Creatinine 0.71 Estimated GFR > 60.0 BUN/Creatinine Ratio 12.7 Glucose 93 Calcium 9.4 Total Bilirubin 0.6 AST 52 H ALT 42 H Alkaline Phosphatase 136 H Total Protein 6.9 Albumin 3.7 Globulin 3.2 Albumin/Globulin Ratio 1.2 Lipase 54 D TSH 2.40 [facility] Medical History (Updated 08/17/20 @ 16:12 by Elan Brink MD) Anxiety 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) Asthma Breast cancer (~2001) CAD (coronary artery disease) Calcified nodule Cerebrovascular accident (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 right middle cerebral artery (04/27/17) Cervical cancer, FIGO stage I Cholelithiasis Chronic back pain Developmental disorder Essential hypertension (02/19/12) Fibrocystic breast disease GERD (gastroesophageal reflux disease) History of colon polyps (02/19/12) History of left breast cancer (~2008) Hyperlipidemia IBS (irritable bowel syndrome) Measles 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, bilateral Personal history of other malignant neoplasm of skin (02/19/12) 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 We did not diagnose any specific condition. Your symptoms are likely due to flare up of chronic condition. I started you on mirtazapine take daily at bedtime to help with sleep, appetite, and depression. Discharge orders & Medications Prescriptions: New mirtazapine 7.5 mg tablet 7.5 mg PO BEDTIME Qty: 30 RF: 0 Continued albuterol sulfate [Proventil HFA] 90 mcg/actuation HFA aerosol inhaler 2 puff INHALATION Q6H PRN (Reason: shortness of breath or wheezing) Qty: 8 RF: 0 diazepam 5 mg tablet See Rx Instructions PO TID PRN (Reason: muscle spasm) Qty: 90 RF: 0 Hold Instructions: [place] [place] Aerochamber MV Spacer See Rx Instructions .ROUTE .MEDSUPPLY Qty: 1 RF: 0 aspirin 81 mg tablet,chewable 81 mg PO DAILY RF: 0 metoprolol tartrate 25 mg tablet 12.5 mg PO DAILY RF: 0 ferrous sulfate 325 mg (65 mg iron) tablet 325 mg PO DAILY Qty: 60 RF: 2 gabapentin [Neurontin] 300 mg capsule 300 mg PO TID Qty: 90 RF: 5 Hold Instructions: stopped at [facility] hydrocodone-acetaminophen 5-325 mg tablet 1 tab PO Q6H PRN (Reason: pain) Qty: 120 RF: 0 apixaban 5 mg tablet 5 mg PO BID Qty: 180 RF: 1 atorvastatin 40 mg tablet 40 mg PO BEDTIME Qty: 90 RF: 3 nitroglycerin [Nitrostat] 0.4 mg tablet, sublingual See Rx Instructions Sublingual PRN PRN (Reason: Chest Pain) Qty: 30 RF: 0 losartan 50 mg tablet 50 mg PO DAILY Qty: 90 RF: 3 pantoprazole 40 mg tablet,delayed release (DR/EC) 40 mg PO DAILY Qty: 90 RF: 1 (DME) Handicap Parking Qty: 1 RF: 0 mupirocin 2 % ointment 1 applic Topical DIRECTED RF: 0 Spacer: Inhaler Spacer Device 1 ea miscellaneous DIRECTED RF: 0 ondansetron HCl 4 mg tablet 4 mg PO Q6H PRN (Reason: nausea and vomiting) Qty: 20 RF: 0 Follow up/Referrals: Heather Tapia DO [Primary Care Provider] - Diet/Activity/Treatments Diet: Regular Discharge Data Primary Care Provider: Heather Tapia Attending Provider: Elan Brink
--- NOTE | 2020-08-18 18:37 | PC.NURSE ---
1600- pt A/O x4, speeech is somewhat mumbled possible due to not having teeth or dentures. Able to communicate needs. BT+, denies nausea, Abd soft and tender, pain 5/10 and headache 5/10, medicated with oxy 5mg PO. Deneis SOB, LS lear and dim, A fib 55, 138/72. LAC SL. Diet advanced to gen. Discharge orders in, but can not get hold of sonHeath. Call light in reach and bed alarm on.
[2020-08-18] MEDS: ATORVASTATIN 20 MG TABLET 40 MG PO (21:19)
[2020-08-18] MEDS: MIRTAZAPINE 15 MG TABLET 7.5 MG PO (21:19)
--- NOTE | 2020-08-19 07:16 | P.PN_ITS ---
Subjective Subjective Date Patient Seen: 08/19/20 Exam Vital Signs (past 8 hours): - 08/18/20 23:48 Temperature 98.7 F Pulse Rate 58 L Respiratory Rate 16 Blood Pressure 136/72 Pulse Oximetry 99 Oxygen Delivery Method Room Air Oxygen Flow Rate 0 Objective Labs Result Diagrams: 08/18/20 09:06 08/18/20 09:06 Labs: Laboratory Results - last 24 hr 08/18/20 08/18/20 09:06 09:06 WBC 7.4 RBC 3.66 L Hgb 11.9 L Hct 36.2 MCV 99.0 MCH 32.5 MCHC 32.8 RDW 14.4 Plt Count 220 Neut % (Auto) 65.3 Lymph % (Auto) 23.3 L [place] % (Auto) 9.2 Eos % (Auto) 1.0 L Baso % (Auto) 1.2 Neut # (Auto) 4800 Lymph # (Auto) 1700 [place] # (Auto) 700 Eos # (Auto) 100 Baso # (Auto) 100 Sodium 133 L Potassium 4.3 Chloride 100 Carbon Dioxide 29 BUN 9 Creatinine 0.71 Estimated GFR > 60.0 BUN/Creatinine Ratio 12.7 Glucose 93 Calcium 9.4 Total Bilirubin 0.6 AST 52 H ALT 42 H Alkaline Phosphatase 136 H Total Protein 6.9 Albumin 3.7 Globulin 3.2 Albumin/Globulin Ratio 1.2 Lipase 54 D [facility] Medical History (Updated 08/17/20 @ 16:12 by Elan Brink MD) Anxiety 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) Asthma Breast cancer (~2001) CAD (coronary artery disease) Calcified nodule Cerebrovascular accident (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 right middle cerebral artery (04/27/17) Cervical cancer, FIGO stage I Cholelithiasis Chronic back pain Developmental disorder Essential hypertension (02/19/12) Fibrocystic breast disease GERD (gastroesophageal reflux disease) History of colon polyps (02/19/12) History of left breast cancer (~2008) Hyperlipidemia IBS (irritable bowel syndrome) Measles 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, bilateral Personal history of other malignant neoplasm of skin (02/19/12) 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 Acute vomiting, diarrhea and abdominal pain -patient has history of chronic/recurrent abdominal pain, vomiting and diarrhea which has been worked up in the past without specific diagnosis, -likely current symptoms are an exacerbation of her chronic condition. -her exam is unremarkable, CT without acute findings, labs unremarkable except lipase is moderately elevated which is of unclear significance, acute idiopathic pancreatitis is in differential but patient has history of prior cholecystectomy and denies alcohol use -cannot rule out chronic mesenteric ischemia in this patient with known coagulo verna, atherosclerotic vascular disease and atrial fibrillation as well as history of severe weight loss over the past 2-3 years -abdominal CT angio was ordered to evaluate for mesenteric occlusion and embolism, patient claustrophobic and can not do MRI, -CT angio was fairly unremarkable with well opacified celiac and SMA arteries and diminutive BRO wich was partially opacified -patient appears well hydrated in spite of symptoms, due to CHF history at risk for volume overload, -IV Hep-Lock after 500 cc NS -clear liquid diet -oxycodone 5 mg as needed, Tylenol as needed -IV Zofran and Reglan as needed for nausea/vomiting -continue pantoprazole per home routine -patient's condition remained the same, abdominal tenderness not present when patient distracted -treat depression, see below 2. Chronic systolic heart failure without exacerbation -patient has reported rash to furosemide and not on diuretic management -chest x-ray no acute disease -echo 01/07/2019 LVEF 35-40%, moderate global hypokinesis, decreased RV systolic function, moderate MR -continue losartan 50 mg q.d. and metoprolol tartrate 12.5 mg q.d. and atorvastatin 40 mg HS 3. Chronic atrial fibrillation with controlled rate -EKG: AFib, LVH, nonspecific ST and T-wave abnormality, no change from previous -continue apixaban 5 mg b.i.d. and metoprolol 12.5 mg q.d. for rate control -telemetry monitoring 4. History of coagulopathy, multiple CVA, and CAD -continue aspirin 81 mg q.d., apixaban per home routine 5. Chronic pain with opioid dependency -patient reports chronic generalized pain, takes gabapentin and hydrocodone twice daily -continue gabapentin 300 mg t.i.d. 6. Depression -patient shows evidence of severe depression and anxiety, has chronic insomnia, unintentional weight loss -patient agrees to start mirtazapine 7.5 mg HS 7. Severe abnormal weight loss -unclear etiology, more likely depression related
[2020-08-19 08:23] VITALS: PULSE 65; RESP 16; O2SAT 99
[2020-08-19] MEDS: APIXABAN 5 MG TABLET PO (08:58)
[2020-08-19] MEDS: PANTOPRAZOLE DR 40 MG TABLET PO (08:58)
[2020-08-19] MEDS: LOSARTAN 50 MG TABLET PO (08:58)
[2020-08-19] MEDS: GABAPENTIN 300 MG CAPSULE PO (08:58)
[2020-08-19] MEDS: ASPIRIN 81 MG CHEW TAB PO (08:58)
[2020-08-19] MEDS: METOPROLOL IR 25 MG TABLET 12.5 MG PO (08:59)
[2020-08-19] MEDS: SODIUM CHLORIDE 0.9% FLUSH 10 ML IV (09:01)
[2020-08-19 09:06] VITALS: BP 128/73; PULSE 80; RESP 16; TEMP 36.3; O2SAT 99
--- NOTE | 2020-08-19 10:33 | CM.DPC ---
DCP Cont: Patient was supposed to be discharged tomorrow, but son could not be reached yesterday pm. This block and case maker attempted to reach son this morning, and message stated, subscriber unavailable. Patient was indicating that her son was out of town for several days, but according to notes, he was at bedside when she was admitted. Was going to interview patient and get further information to see if there are any other family members to pick her up. 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 He is on his way here. P: DCP to continue to follow. Patient's son is on his way to pick her up. Tiffanie Morse RN/Industrial Engineering Analyst
--- NOTE | 2020-08-19 10:57 | PM.DS.1 ---
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 She reported diarrhea with black stools although stool tested guaiac negative in the ED. She reports recurrent bouts of emesis and has not eaten much but states maintaining good fluid intake. She reports abdominal pain more localized to the right upper quadrant radiating to pelvis. She denies chest pains, shortness of breath, fevers or cough. She also mentions discomfort with urinating although had normal urinalysis microscopic in ED. On labs, her CBC is unremarkable, LFTs normal except mild elevated AST of 69, and BNP 8800, and lipase elevated at 1138. She has previous elevated lipase level is around 600 back in March of this year when evaluated in the ED for abdominal pain. CT scan of abdomen and pelvis showed aortic atherosclerosis, prominent intra and extra hepatic bile ducts consistent with known history of cholecystectomy, gastric fundal wall thickening probably related to under distention, small left pleural effusion. Patient has history of chronic/recurrent abdominal pain, vomiting and diarrhea for which she has had several ER visits over the years and has also seen GI for outpatient consultation apparently without specific diagnosis per PCP office notes. She states that more recently she has been relatively symptom-free until a couple of days ago when she started having the symptoms again. Patient further states that she has lost 50-60 lb in the past year although review of weights in [facility] suggest the weight loss has been more gradual over the past 2-3 years. Review of systems further positive for insomnia, diminished mood, psychosocial stressors with abandonment by daughter. Patient states her son lives with her and takes care of her. Discharge Providers Provider Date of admission: 08/17/20 13:33 Discharge Date: 08/19/20 Primary care physician: Heather Tapia DO Consults: 08/17/20 16:11 Consult to Dietitian, Adult Routine Comment: Reason For Exam: decreased food intake Discharge provider: Hoa Case MD Summary Hospital Course Discharge Diagnosis: 1. Acute vomiting, diarrhea and abdominal pain likely exacerbation of chronic undetermined condition 2. Chronic systolic heart failure without exacerbation 3. Chronic atrial fibrillation 4. Chronically anticoagulated 5. Chronic pain with opioid dependency 6. Severe depression 7. Severe unintentional abnormal weight loss 8. Elevated lipase likely chronic of unknown significance Hospital Course: 1. Acute vomiting, diarrhea and abdominal pain -patient has history of chronic/recurrent abdominal pain, vomiting and diarrhea which has been worked up in the past without specific diagnosis, -likely current symptoms are an exacerbation of her chronic condition. -her exam is unremarkable, CT without acute findings, labs unremarkable except lipase is moderately elevated which is of unclear significance, acute idiopathic pancreatitis is in differential but patient has history of prior cholecystectomy and denies alcohol use -cannot rule out chronic mesenteric ischemia in this patient with known coagulopathy, atherosclerotic vascular disease and atrial fibrillation as well as history of severe weight loss over the past 2-3 years -abdominal CT angio was ordered to evaluate for mesenteric occlusion and embolism, patient claustrophobic and can not do MRI, -CT angio was fairly unremarkable with well opacified celiac and SMA arteries and diminutive BRO wich was partially opacified -patient appears well hydrated in spite of symptoms, due to CHF history at risk for volume overload, -oxycodone 5 mg as needed, Tylenol as needed -IV Zofran and Reglan as needed for nausea/vomiting -continue pantoprazole -patient's condition remained the same, abdominal tenderness not present when patient distracted -treat depression, see below 2. Chronic systolic heart failure without exacerbation -patient has reported rash to furosemide and not on diuretic management -chest x-ray no acute disease -echo 01/07/2019 LVEF 35-40%, moderate global hypokinesis, decreased RV systolic function, moderate MR -continue losartan 50 mg q.d. and metoprolol tartrate 12.5 mg q.d. and atorvastatin 40 mg HS 3. Chronic atrial fibrillation with controlled rate -EKG: AFib, LVH, nonspecific ST and T-wave abnormality, no change from previous -continue apixaban 5 mg b.i.d. and metoprolol 12.5 mg q.d. for rate control -telemetry monitoring 4. History of coagulopathy, multiple CVA, and CAD -continue aspirin 81 mg q.d., apixaban per home routine 5. Chronic pain with opioid dependency -patient reports chronic generalized pain, takes gabapentin and hydrocodone twice daily -continue gabapentin 300 mg t.i.d. 6. Depression -patient shows evidence of severe depression and anxiety, has chronic insomnia, unintentional weight loss -patient agrees to start mirtazapine 7.5 mg HS 7. Severe abnormal weight loss -unclear etiology, more likely depression related Status at Discharge Cognitive/behavioral status at discharge: at baseline, confused Functional status at discharge: independent ambulation Overall status at discharge: patient is back to baseline Exam Vital Signs (past 8 hours): - 08/19/20 08:23 08/19/20 09:06 Temperature 97.4 F L Pulse Rate 65 80 Respiratory Rate 16 16 Blood Pressure 128/73 Pulse Oximetry 99 99 Oxygen Delivery Method Room Air Oxygen Flow Rate 0 Narrative Exam Narrative: Alert and oriented x3 No apparent distress She is quite confused. She tells us that her son has left for [place], that he has her house keys, that someone she does not know is ?putting out the dogs? and that she lives at the [facility]. She does not know their phone number. Several hours later her son came in to pick her up. I am not sure which parts of what she was saying were imagined or true. 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) Asthma Breast cancer (~2001) CAD (coronary artery disease) Calcified nodule Cerebrovascular accident (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 right middle cerebral artery (04/27/17) Cervical cancer, FIGO stage I Cholelithiasis Chronic back pain Developmental disorder Essential hypertension (02/19/12) Fibrocystic breast disease GERD (gastroesophageal reflux disease) History of colon polyps (02/19/12) History of left breast cancer (~2008) Hyperlipidemia IBS (irritable bowel syndrome) Measles 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, bilateral Personal history of other malignant neoplasm of skin (02/19/12) 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) Systolic congestive heart failure with reduced left ventricular function, NYHA class 2 (10/26/10) Surgical History Anesthesia Status post arthroscopy Status post biopsy (~2014) Status post breast lumpectomy (~2008) Status post cholecystectomy Status post coronary artery bypass graft Status post hysterectomy (~2009) Social History household members: children Smoking Status: Never smoker alcohol intake: never Discharge Assessment & Plan Assessment and Plan Plan of Treatment: Unfortunately her son could not be contacted last night and so she stayed another night, discharging midday today. She tells us that her son has left for [place], that he has her house keys, that someone she does not know is ?putting out the dogs? and that she lives at the [facility]. She does not know their phone number. Several hours later her son came in to pick her up. I am not sure which parts of what she was saying were imagined or true. Discharge Plan Discharge Plan Patient Disposition: Home Provider Discharge Comment: You were admitted for evaluation of abdominal symptoms. We did not diagnose any specific condition. Your symptoms are likely due to flare up of chronic condition. I started you on mirtazapine take daily at bedtime to help with sleep, appetite, and depression. Discharge orders & Medications Prescriptions: New mirtazapine 7.5 mg tablet 7.5 mg PO BEDTIME Qty: 30 RF: 0 Continued albuterol sulfate [Proventil HFA] 90 mcg/actuation HFA aerosol inhaler 2 puff INHALATION Q6H PRN (Reason: shortness of breath or wheezing) Qty: 8 RF: 0 diazepam 5 mg tablet See Rx Instructions PO TID PRN (Reason: muscle spasm) Qty: 90 RF: 0 Hold Instructions: stopped at [place] ([facility]) Aerochamber MV Spacer See Rx Instructions .ROUTE .MEDSUPPLY Qty: 1 RF: 0 aspirin 81 mg tablet,chewable 81 mg PO DAILY RF: 0 metoprolol tartrate 25 mg tablet 12.5 mg PO DAILY RF: 0 ferrous sulfate 325 mg (65 mg iron) tablet 325 mg PO DAILY Qty: 60 RF: 2 gabapentin [Neurontin] 300 mg capsule 300 mg PO TID Qty: 90 RF: 5 Hold Instructions: stopped at [facility] hydrocodone-acetaminophen 5-325 mg tablet 1 tab PO Q6H PRN (Reason: pain) Qty: 120 RF: 0 apixaban 5 mg tablet 5 mg PO BID Qty: 180 RF: 1 atorvastatin 40 mg tablet 40 mg PO BEDTIME Qty: 90 RF: 3 nitroglycerin [Nitrostat] 0.4 mg tablet, sublingual See Rx Instructions Sublingual PRN PRN (Reason: Chest Pain) Qty: 30 RF: 0 losartan 50 mg tablet 50 mg PO DAILY Qty: 90 RF: 3 pantoprazole 40 mg tablet,delayed release (DR/EC) 40 mg PO DAILY Qty: 90 RF: 1 (DME) Handicap Parking Qty: 1 RF: 0 mupirocin 2 % ointment 1 applic Topical DIRECTED RF: 0 Spacer: Inhaler Spacer Device 1 ea miscellaneous DIRECTED RF: 0 ondansetron HCl 4 mg tablet 4 mg PO Q6H PRN (Reason: nausea and vomiting) Qty: 20 RF: 0 Follow up/Referrals: Heather Tapia DO [Primary Care Provider] - Diet/Activity/Treatments Diet: Regular Visit Report/Discharge Packet Instructions: How to Prevent Falls, DI for Nausea -- Adult Discharge Data Primary Care Provider: Heather Tapia Attending Provider: Elan Brink
--- NOTE | 2020-08-19 11:46 | PC.NURSE ---
Patient ready for discharge with current orders per Dr. Case. Patient and her son have no further questions or concerns. Patient denies complaints, tolerating meals. Discharge instructions and home care handouts reviewed with patient and her son. Patient says she has follow up already scheduled. IV dc'd intact. Escorted out with all her belongings to home with her son.
== END 2020-08-19 11:49 | disposition home or self-care (01) ==
LOC: ED 13:11 → AC 13:34
PROVIDERS: Admitting Provider Internal Medicine; Emergency Provider Emergency Medicine; PCP Family Medicine; Referring Provider Emergency Medicine; Visit Provider Internal Medicine
DX: R10.9 Unspecified abdominal pain (principal); R19.7 Diarrhea, unspecified; I10 Essential (primary) hypertension; I25.10 Atherosclerotic heart disease of native coronary artery without angina pectoris; Z95.1 Presence of aortocoronary bypass graft; Z86.73 Personal history of transient ischemic attack (TIA), and cerebral infarction without residual deficits; Z79.01 Long term (current) use of anticoagulants; I50.22 Chronic systolic (congestive) heart failure; I48.20 Chronic atrial fibrillation, unspecified; G89.29 Other chronic pain; F11.20 Opioid dependence, uncomplicated; F32.9 Major depressive disorder, single episode, unspecified; R63.4 Abnormal weight loss; R74.8 Abnormal levels of other serum enzymes; Z20.822 Contact with and (suspected) exposure to COVID-19
CPT/HCPCS: 36415; 70450; 71045; 74174; 74177; 80053; 81001; 81015; 82550; 83690; 83880; 84443; 84484; 85025; 87635; 93005; 94760; 94762; 96361; 96374; 96375; 96376; 99285; C9803; G0378; C9113; J2270; J2405; J2765; Q9967

== ENCOUNTER 2020-10-29 19:21 | Emergency (ER) | payer MEDICARE, OTHER, SELFPAY ==
[2020-08-17 15:24] VITALS: BMI 22.8
[2020-10-29] VITALS (16 sets, daily range): BP systolic 178–230; BP diastolic 93–117; PULSE 71–91; RESP 15–30; TEMP 36.8; O2SAT 94–97; BMI 25.2
--- NOTE | 2020-10-29 19:22 | DI.RAD.S_ITS ---
PROCEDURE: XR CHEST 1V INDICATIONS: Chest pain TECHNIQUE: One view of the chest was acquired. COMPARISON: [facility], CR, XR CHEST 1V, 08/17/2020, 10:40. FINDINGS: Surgical changes and devices: Median sternotomy changes for CABG. Lungs and pleura: There is pleural-parenchymal scarring in the apices. No focal consolidative airspace opacity otherwise. No pleural effusions or pneumothorax. Mediastinum: Mediastinal contours appear normal. Heart size is normal. Bones and chest wall: No suspicious bony lesions. Overlying soft tissues appear unremarkable. IMPRESSION: No acute finding. Dictated by: Holden Cruz M.D. on 10/29/2020 at 19:57 Approved by: Holden Cruz M.D. on 10/29/2020 at 20:11
[2020-10-29 19:58] LABS: COVID19 -Nasal RAPID POSITIVE (Negative)
[2020-10-29 20:00] LABS: Add Manual Diff / Slide Review NO; Basophils Absolute Auto 0 /uL (0-100); Basophils Percent Auto 0.4 % (0-2); Eosinophils Absolute Auto 0 /uL (0-450); Eosinophils Percent Auto 0.4 % (2-4); Hematocrit 35.5 % (36-46); Hemoglobin 11.6 g/dL (12.0-16.0); Lymphocytes Absolute Auto 800 /uL (1100-4500); Lymphocytes Percent Auto 19.2 % (25-40); Mean Corpuscular HGB Conc 32.6 % (30-36); Mean Corpuscular Hemoglobin 30.6 PG (26-34); Mean Corpuscular Volume 93.9 fL (80-100); Monocytes Absolute Auto 200 /uL (0-900); Monocytes Percent Auto 5.7 % (3-14); Neutrophils Absolute Auto 3100 /uL (1500-7000); Neutrophils Percent Auto 74.3 % (50-75); Platelet Count 119 X10^3/uL (150-400); Red Blood Cell Count 3.78 X10^6/uL (4.0-5.2); Red Cell Distribution Width 14.5 % (11.6-14.8); White Blood Cell Count 4.2 X10^3/uL (4.5-11.0)
--- NOTE | 2020-10-29 20:10 | ED.CHESTPAIN ---
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 Abdominal pain and chronic pancreatitis is 1 of her chronic issues. She states that she lives with her son. She does not complain of orthopnea, dyspnea or fever. She notes that she had a slight cough today. She has not been vaccinated against COVID. She does not complain of tachycardia or chest pain. She does not have any dysuria or headaches. No new complaints of focal neurologic findings. Related Data Home Medications Medication Instructions Recorded Confirmed Spacer: Inhaler Spacer Device 1 ea MISCELLANEOUS DIRECTED 10/27/17 03/09/20 mupirocin 2 % topical ointment 1 applic TOPICAL DIRECTED 12/03/17 03/09/20 aspirin 81 mg chewable tablet 81 mg PO DAILY 12/23/19 03/09/20 metoprolol tartrate 25 mg tablet 12.5 mg PO DAILY tab 12/23/19 03/09/20 Previous Rx's Medication Instructions Recorded Handicap Parking #1 ea 06/04/18 ondansetron HCl 4 mg tablet 4 mg PO Q6H PRN #20 tab 02/13/19 albuterol sulfate 90 mcg/actuation 2 puff INHALATION Q6H PRN #8 gram 02/22/19 aerosol inhaler (Proventil HFA) diazepam 5 mg tablet See Rx Instructions PO TID PRN #90 02/23/19 tab inhalational spacing device #1 each 03/24/19 (Aerochamber MV) atorvastatin 40 mg tablet 40 mg PO BEDTIME #90 tab 12/26/19 losartan 50 mg tablet 50 mg PO DAILY #90 tab 12/26/19 nitroglycerin 0.4 mg sublingual See Rx Instructions SUBLINGUAL PRN 12/26/19 tablet (Nitrostat) PRN #30 tab pantoprazole 40 mg tablet,delayed 40 mg PO DAILY #90 tab 12/26/19 release ferrous sulfate 325 mg (65 mg 325 mg PO DAILY #60 tab 02/13/20 iron) tablet gabapentin 300 mg capsule 300 mg PO TID #90 cap 03/21/20 (Neurontin) apixaban 5 mg tablet 5 mg PO BID #180 tab 08/01/20 mirtazapine 7.5 mg tablet 7.5 mg PO BEDTIME #30 tab 08/18/20 hydrocodone 5 mg-acetaminophen 325 1 tab PO Q6H PRN #120 tab 10/29/20 mg tablet Allergies Allergy/AdvReac Type Severity Reaction Status Date / Time furosemide [FUROSEMIDE] Allergy Mild RASH Verified 08/17/20 10:43 sertraline [SERTRALINE] Allergy Mild FEELS Verified 08/17/20 10:43 DRUGGED lisinopril AdvReac Mild Cough Verified 08/17/20 10:43 Review of Systems Review of Systems Narrative: Patient is very literal in answering questions and it is unclear that review of systems elicited is either true nor relevant. 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) Asthma Breast cancer (~2001) CAD (coronary artery disease) Calcified nodule Cerebrovascular accident (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 right middle cerebral artery (04/27/17) Cervical cancer, FIGO stage I Cholelithiasis Chronic back pain Developmental disorder Essential hypertension (02/19/12) Fibrocystic breast disease GERD (gastroesophageal reflux disease) History of colon polyps (02/19/12) History of left breast cancer (~2008) Hyperlipidemia IBS (irritable bowel syndrome) Measles 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, bilateral Personal history of other malignant neoplasm of skin (02/19/12) 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) Systolic congestive heart failure with reduced left ventricular function, NYHA class 2 (10/26/10) Surgical History Anesthesia Status post arthroscopy Status post biopsy (~2014) Status post breast lumpectomy (~2008) Status post cholecystectomy Status post coronary artery bypass graft Status post hysterectomy (~2009) Social History household members: children Smoking Status: Never smoker alcohol intake: never Smoking Status: Never smoker alcohol intake frequency: holidays/special occasions only Substance Use Type: does not use Exam Narrative Exam Narrative: General: Frail, thin, extraordinarily anxious, very literal answers to questions HEENT: Moist mucous membranes, normal sclera with reactive pupils, Neck: No JVD, supple Respiratory: Lungs minor scattered wheeze but no significant seizure basilar crackles. Full and symmetrical air movement Cardiac: Tachycardic and irregular. Abdomen: Soft, nontende to palpation,, good bowel tones, no flank pain Skin: Warm and dry, no rashes Neurologic: She is not oriented to person time or place. She is grossly moving all extremities Extremities: She complains of right hand and wrist pain with no obvious reproducible abnormalities, good capillary refill in all extremities Psych: Anxious, poor overall insight Initial Vital Signs Initial Vital Signs: Vital Signs Temperature 98.2 F 10/29/20 19:22 Pulse Rate 89 10/29/20 19:22 Respiratory Rate 25 H 10/29/20 19:22 Blood Pressure 214/102 H 10/29/20 19:22 Pulse Oximetry 97 10/29/20 19:22 Course Orders Ordered: ED Orders 10/29/20 19:22 XR chest 1V Stat EKG-12 Lead Stat 10/29/20 19:30 COVID19 -Nasal swab/Pre-Proc Stat 10/29/20 19:47 BNP [NT-proBNP (BNP-Adult 18+)] Stat Complete Blood Count AUTO DIFF Stat Comprehensive Metabolic Panel Stat Lipase Stat Magnesium Stat Troponin & CK Cardiac Panel Stat Discontinued Medications Acetaminophen (Acetaminophen 325 Mg Tablet) 650 mg PO NOW ONE Stop: 10/29/20 22:21 Last Admin: 10/29/20 22:30 Dose: 650 mg Documented by: KELLEN Metoprolol Tartrate (Metoprolol Ir 25 Mg Tablet) 25 mg PO NOW ONE Stop: 10/29/20 23:16 Last Admin: 10/30/20 01:01 Dose: 25 mg Documented by: GABE Mirtazapine (Mirtazapine 15 Mg Tablet) 7.5 mg PO BEDTIME MARKIE Last Admin: 10/30/20 01:01 Dose: 7.5 mg Documented by: GABE Vital Signs Vital signs: Vital Signs - 8 hr 10/29/20 19:22 10/29/20 19:27 10/29/20 19:30 Temperature 98.2 F 98.2 F Pulse Rate 89 85 88 Respiratory Rate 25 H 28 H Blood Pressure 214/102 H Pulse Oximetry 97 96 10/29/20 19:33 10/29/20 20:00 10/29/20 20:30 Temperature Pulse Rate 87 82 91 H Respiratory Rate 23 19 30 H Blood Pressure 214/102 H 225/117 H Pulse Oximetry 96 97 96 10/29/20 20:31 10/29/20 21:00 10/29/20 21:30 Temperature Pulse Rate 82 73 90 Respiratory Rate 22 17 27 H Blood Pressure 196/93 H 230/98 H Pulse Oximetry 96 95 94 10/29/20 22:00 10/29/20 22:01 10/29/20 22:14 Temperature Pulse Rate 77 84 81 Respiratory Rate 15 20 28 H Blood Pressure 203/98 H Pulse Oximetry 95 96 96 10/29/20 22:30 10/29/20 23:00 10/29/20 23:18 Temperature Pulse Rate 89 79 75 Respiratory Rate 29 H 17 20 Blood Pressure 206/103 H Pulse Oximetry 96 96 96 10/29/20 23:30 10/30/20 00:00 10/30/20 00:30 Temperature Pulse Rate 71 74 72 Respiratory Rate 18 20 16 Blood Pressure 178/105 H 197/100 H 202/105 H Pulse Oximetry 96 96 97 10/30/20 01:00 Temperature Pulse Rate 105 H Respiratory Rate 29 H Blood Pressure Pulse Oximetry 93 MDM - Chest Pain Lab Data Result diagrams: 10/29/20 19:47 10/29/20 19:47 Labs: Lab Results 10/29/20 10/29/20 10/29/20 Range/Units 19:30 19:47 19:47 WBC 4.2 L (4.5-11.0) X10^3/uL RBC 3.78 L (4.0-5.2) X10^6/uL Hgb 11.6 L (12.0-16.0) g/dL Hct 35.5 L (36-46) % MCV 93.9 (80-100) fL MCH 30.6 (26-34) PG MCHC 32.6 (30-36) % RDW 14.5 (11.6-14.8) % Plt Count 119 L (150-400) X10^3/uL Neut % (Auto) 74.3 (50-75) % Lymph % (Auto) 19.2 L (25-40) % [place] % (Auto) 5.7 (3-14) % Eos % (Auto) 0.4 L (2-4) % Baso % (Auto) 0.4 (0-2) % Neut # (Auto) 3100 (6557-0484) /uL Lymph # (Auto) 800 L (6043-0225) /uL [place] # (Auto) 200 (0-900) /uL Eos # (Auto) 0 (0-450) /uL Baso # (Auto) 0 (0-100) /uL Sodium 133 L (137-145) mmol/L Potassium 4.6 (3.4-5.1) mmol/L Chloride 102 (98-107) mmol/L Carbon Dioxide 25 (22-32) mmol/L BUN 13 (7-17) mg/dL Creatinine 0.69 (0.52-1.04) mg/dL Estimated GFR > 60.0 (>60) mL/min BUN/Creatinine Ratio 18.8 (6-22) Glucose 99 (80-110) mg/dL Calcium 8.4 (8.4-10.2) mg/dL Magnesium 1.8 (1.6-2.3) mg/dL Total Bilirubin 0.7 (0.2-1.3) mg/dL AST 24 (14-36) IU/L ALT 13 (<35) IU/L Alkaline Phosphatase 141 H (38-126) U/L Total Creatine Kinase < 20 L (30-135) U/L CK-MB (CK-2) TNP CK-MB (CK-2) Rel Index TNP Troponin I < 0.012 (0.01-0.034) ng/mL NT-Pro-B Natriuret Pep (<450) pg/mL Total Protein 6.7 (6.3-8.2) g/dL Albumin 3.4 L (3.5-5.0) g/dL Globulin 3.3 (1.7-4.1) g/dL Albumin/Globulin Ratio 1.0 (1.0-2.8) Lipase 22 L (23-300) U/L SARS-CoV-2 (PCR) Positive H (Negative) 10/29/20 Range/Units 19:47 WBC (4.5-11.0) X10^3/uL RBC (4.0-5.2) X10^6/uL Hgb (12.0-16.0) g/dL Hct (36-46) % MCV (80-100) fL MCH (26-34) PG MCHC (30-36) % RDW (11.6-14.8) % Plt Count (150-400) X10^3/uL Neut % (Auto) (50-75) % Lymph % (Auto) (25-40) % [place] % (Auto) (3-14) % Eos % (Auto) (2-4) % Baso % (Auto) (0-2) % Neut # (Auto) (8735-7987) /uL Lymph # (Auto) (2899-1630) /uL [place] # (Auto) (0-900) /uL Eos # (Auto) (0-450) /uL Baso # (Auto) (0-100) /uL Sodium (137-145) mmol/L Potassium (3.4-5.1) mmol/L Chloride (98-107) mmol/L Carbon Dioxide (22-32) mmol/L BUN (7-17) mg/dL Creatinine (0.52-1.04) mg/dL Estimated GFR (>60) mL/min BUN/Creatinine Ratio (6-22) Glucose (80-110) mg/dL Calcium (8.4-10.2) mg/dL Magnesium (1.6-2.3) mg/dL Total Bilirubin (0.2-1.3) mg/dL AST (14-36) IU/L ALT (<35) IU/L Alkaline Phosphatase (38-126) U/L Total Creatine Kinase (30-135) U/L CK-MB (CK-2) CK-MB (CK-2) Rel Index Troponin I (0.01-0.034) ng/mL NT-Pro-B Natriuret Pep 09793 H (<450) pg/mL Total Protein (6.3-8.2) g/dL Albumin (3.5-5.0) g/dL Globulin (1.7-4.1) g/dL Albumin/Globulin Ratio (1.0-2.8) Lipase (23-300) U/L SARS-CoV-2 (PCR) (Negative) Urine Dip Bedside Urine Glucose Negative Bedside Urine Bilirubin - Negative Bedside Urine Ketone - Negative Urine Specific [place] 1.015 Bedside Urine Occult Blood - Negative Bedside Urine pH 7.5 Bedside Urine Protein - Negative Bedside Urine Urobilinogen - Negative Bedside Urine Nitrite - Negative Bedside Urine Leukocytes - Negative Esterase Imaging Data Chest x-ray: Radiologist's Impression: FINDINGS: Surgical changes and devices: Median sternotomy changes for CABG. Lungs and pleura: There is pleural-parenchymal scarring in the apices. No focal consolidative airspace opacity otherwise. No pleural effusions or pneumothorax. Mediastinum: Mediastinal contours appear normal. Heart size is normal. Bones and chest wall: No suspicious bony lesions. Overlying soft tissues appear unremarkable. IMPRESSION: No acute finding. Dictated by: Holden Cruz M.D. on 10/29/2020 at 19:57 ECG Data Interpretation: Atrial fibrillation at a rate of 86 Left ventricular hypertrophy Nonspecific ST T wave changes MDM Narrative Medical decision making narrative: 85-year-old woman with multiple chronic medical problems. She is quite anxious and with her anxiety increasing her heart rate and blood pressure both of however as she calms both come down. She is appropriately medicated for both of these. Will give her metastases pain and her nighttime metoprolol Evaluating her chest x-ray and On clinical exam, she does not appear to be in congestive heart failure despite the elevated BNP. She is complaining of diffuse abdominal pain, not reproducible on clinical exam with no evidence of significant abnormality low at 22. There is no evidence of an elevated white count she certainly does not have a surgical abdomen COVID test did return positive today. Unclear if she is actually symptomatic or has been symptomatic. Currently oxygen saturations are 97% on room air Her son who is her caregiver is available to pick her up and she is discharged home in stable condition. Discharge Plan Departure Patient Disposition: Home Clinical Impression: COVID, Abdominal pain, chronic, generalized Hypertension Qualifiers: Hypertension type: primary hypertension Qualified Code(s): I10 - Essential (primary) hypertension Instructions: DI for COVID-19 (Suspected or Confirmed ) Activity Restrictions/Additional Instructions: 85-year-old woman presents with chronic abdominal pain. She is incidentally noted to be COVID positive. She seems to have had symptoms for somewhere between 1 and 3 days. Typically COVID tends to get to its worst at approximately day 8. Today, your oxygen levels are absolutely normal. She does not appear to be having any worsening heart failure. She is not having a stroke and there is no evidence of acute heart attack. You do need to continue all of your usual medications. If you find that your breathing is worse or your having more difficulty with cough, please feel free to return for further evaluation. Please note, you do need to be staying home and isolating as you currently are infectious and will spread COVID and help continue our current pandemic. I hope you heal quickly Prescriptions: No Action albuterol sulfate [Proventil HFA] 90 mcg/actuation HFA aerosol inhaler 2 puff INHALATION Q6H PRN (Reason: shortness of breath or wheezing) Qty: 8 RF: 0 diazepam 5 mg tablet See Rx Instructions PO TID PRN (Reason: muscle spasm) Qty: 90 RF: 0 Hold Instructions: stopped at [place] ([facility] [place]) Aerochamber MV Spacer See Rx Instructions .ROUTE .MEDSUPPLY Qty: 1 RF: 0 aspirin 81 mg tablet,chewable 81 mg PO DAILY RF: 0 metoprolol tartrate 25 mg tablet 12.5 mg PO DAILY RF: 0 ferrous sulfate 325 mg (65 mg iron) tablet 325 mg PO DAILY Qty: 60 RF: 2 gabapentin [Neurontin] 300 mg capsule 300 mg PO TID Qty: 90 RF: 5 Hold Instructions: stopped at [place] apixaban 5 mg tablet 5 mg PO BID Qty: 180 RF: 1 hydrocodone-acetaminophen 5-325 mg tablet 1 tab PO Q6H PRN (Reason: pain) Qty: 120 RF: 0 atorvastatin 40 mg tablet 40 mg PO BEDTIME Qty: 90 RF: 3 nitroglycerin [Nitrostat] 0.4 mg tablet, sublingual See Rx Instructions Sublingual PRN PRN (Reason: Chest Pain) Qty: 30 RF: 0 losartan 50 mg tablet 50 mg PO DAILY Qty: 90 RF: 3 pantoprazole 40 mg tablet,delayed release (DR/EC) 40 mg PO DAILY Qty: 90 RF: 1 (DME) Handicap Parking Qty: 1 RF: 0 mupirocin 2 % ointment 1 applic Topical DIRECTED RF: 0 Spacer: Inhaler Spacer Device 1 ea miscellaneous DIRECTED RF: 0 ondansetron HCl 4 mg tablet 4 mg PO Q6H PRN (Reason: nausea and vomiting) Qty: 20 RF: 0 mirtazapine 7.5 mg tablet 7.5 mg PO BEDTIME Qty: 30 RF: 0 Referrals: Heather Tapia DO [Primary Care Provider] -
[2020-10-29 20:34] LABS: Alanine Aminotransferase 13 IU/L (<35); Albumin 3.4 g/dL (3.5-5.0); Alkaline Phosphatase 141 U/L (38-126); Aspartate Aminotransferase 24 IU/L (14-36); BUN Creatinine Ratio 18.8 (6-22); Bilirubin Total 0.7 mg/dL (0.2-1.3); Blood Urea Nitrogen 13 mg/dL (7-17); Calcium 8.4 mg/dL (8.4-10.2); Carbon Dioxide 25 mmol/L (22-32); Chloride 102 mmol/L (98-107); Creatine Kinase < 20 U/L (30-135); Estimated Glomerular Filt Rate > 60.0 mL/min (>60); Globulin 3.3 g/dL (1.7-4.1); Glucose 99 mg/dL (80-110); HEMOLYSIS 15 (0-50); Lipase 22 U/L (23-300); Magnesium 1.8 mg/dL (1.6-2.3); Potassium 4.6 mmol/L (3.4-5.1); Sodium 133 mmol/L (137-145); Total Protein 6.7 g/dL (6.3-8.2)
[2020-10-29 20:43] LABS: NT-proBNP (BNP-Adult 18+) 14400 pg/mL (<450)
[2020-10-29 20:45] LABS: Troponin I < 0.012 ng/mL (0.01-0.034)
[2020-10-29] MEDS: ACETAMINOPHEN 325 MG TABLET 650 MG PO (22:30)
[2020-10-30] VITALS: BP 197/100; PULSE 74; RESP 20; O2SAT 96
[2020-10-30 00:30] VITALS: BP 202/105; PULSE 72; RESP 16; O2SAT 97
[2020-10-30 01:00] VITALS: PULSE 105; RESP 29; O2SAT 93
[2020-10-30] MEDS: METOPROLOL IR 25 MG TABLET PO (01:01)
[2020-10-30] MEDS: MIRTAZAPINE 15 MG TABLET 7.5 MG PO (01:01)
== END 2020-10-30 01:20 | disposition home or self-care (01) ==
PROVIDERS: Emergency Provider Emergency Medicine; PCP Family Medicine
DX: U07.1 COVID-19 (principal); R10.84 Generalized abdominal pain; I10 Essential (primary) hypertension; R06.02 Shortness of breath; R07.9 Chest pain, unspecified; Z20.822 Contact with and (suspected) exposure to COVID-19
CPT/HCPCS: 36415; 71045; 80053; 81003; 82550; 83690; 83735; 83880; 84484; 85025; 87635; 93005; 93010; 99284; C9803

== ENCOUNTER 2020-11-30 16:08 | Emergency (ER) | payer MEDICARE, OTHER, SELFPAY ==
[2020-08-17 15:24] VITALS: BMI 22.8
[2020-11-30] VITALS (19 sets, daily range): BP systolic 144–202; BP diastolic 80–145; PULSE 60–88; RESP 13–22; TEMP 36.8; O2SAT 95–99; BMI 21.7
[2020-11-30 16:56] LABS: Add Manual Diff / Slide Review NO; Basophils Absolute Auto 100 /uL (0-100); Basophils Percent Auto 0.8 % (0-2); Eosinophils Absolute Auto 100 /uL (0-450); Eosinophils Percent Auto 0.8 % (2-4); Lymphocytes Absolute Auto 1800 /uL (1100-4500); Mean Corpuscular HGB Conc 31.8 % (30-36); Mean Corpuscular Hemoglobin 29.7 PG (26-34); Mean Corpuscular Volume 93.4 fL (80-100); Monocytes Absolute Auto 600 /uL (0-900); Monocytes Percent Auto 6.2 % (3-14); Neutrophils Absolute Auto 7300 /uL (1500-7000); Neutrophils Percent Auto 74.2 % (50-75); Platelet Count 231 X10^3/uL (150-400); Red Cell Distribution Width 15.2 % (11.6-14.8); White Blood Cell Count 9.8 X10^3/uL (4.5-11.0)
[2020-11-30 17:02] LABS: INR 1.3 (0.9-1.3); Prothrombin Time 14.1 SECONDS (10.1-12.7)
[2020-11-30 17:04] LABS: PTT Partial Thromboplastin Tim 39 SECONDS (26.4-36.2)
[2020-11-30 17:05] LABS: Alanine Aminotransferase 10 IU/L (<35); Albumin 4.2 g/dL (3.5-5.0); Albumin Globulin Ratio 1.3 (1.0-2.8); Alkaline Phosphatase 122 U/L (38-126); Aspartate Aminotransferase 21 IU/L (14-36); BUN Creatinine Ratio 20.3 (6-22); Bilirubin Total 0.9 mg/dL (0.2-1.3); Blood Urea Nitrogen 14 mg/dL (7-17); Calcium 9.6 mg/dL (8.4-10.2); Carbon Dioxide 26 mmol/L (22-32); Chloride 100 mmol/L (98-107); Estimated Glomerular Filt Rate > 60.0 mL/min (>60); Globulin 3.3 g/dL (1.7-4.1); Glucose 88 mg/dL (80-110); HEMOLYSIS < 15 (0-50); Potassium 4.1 mmol/L (3.4-5.1); Sodium 138 mmol/L (137-145); Total Protein 7.5 g/dL (6.3-8.2)
--- NOTE | 2020-11-30 20:40 | ED.SOB ---
HPI - SOB/Dyspnea General Chief Complaint: Abdominal Pain Stated Complaint: SOB Time Seen by Provider: 11/30/20 20:39 Source: patient Mode of arrival: EMS Limitations: no limitations History of Present Illness HPI Narrative: This is an 85-year-old female comes to the emergency department. Patient states her main concern at the moment is diarrhea. She states she has had episodes for about 3 or 4 days. She has noted the stool has been dark almost blackish. She also describes some pain mostly suprapubic. And she has also noted pain when she urinates or has urine incontinence. Patient states that it seems more like it is the skin and not necessarily true dysuria. She is concerned she might have a yeast infection. She states she has had similar symptoms in the past and had topical cream in the past that was helpful. Patient denies any fevers recently. She states she has had some shortness of breath recently and sometimes hears a sound when she is breathing but denies any shortness of breath currently. She denies any chest pain at this time. She has had occasional sneezing. Occasional chills. She denies any nausea or vomiting. She states her appetite has been decreased for the past 2 days. Patient states her incontinence is not new. She does have a history of COVID infection in October. 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 She appears to be anticoagulated on apixaban. She states she has had her gallbladder removed in the past. No tobacco, alcohol or illicit. Her primary care is Dr. Tapia. Related Data Home Medications Medication Instructions Recorded Confirmed Spacer: Inhaler Spacer Device 1 ea MISCELLANEOUS DIRECTED 10/27/17 03/09/20 mupirocin 2 % topical ointment 1 applic TOPICAL DIRECTED 12/03/17 03/09/20 aspirin 81 mg chewable tablet 81 mg PO DAILY 12/23/19 03/09/20 metoprolol tartrate 25 mg tablet 12.5 mg PO DAILY tab 12/23/19 03/09/20 Previous Rx's Medication Instructions Recorded Handicap Parking #1 ea 06/04/18 ondansetron HCl 4 mg tablet 4 mg PO Q6H PRN #20 tab 02/13/19 albuterol sulfate 90 mcg/actuation 2 puff INHALATION Q6H PRN #8 gram 02/22/19 aerosol inhaler (Proventil HFA) inhalational spacing device #1 each 03/24/19 (Aerochamber MV) atorvastatin 40 mg tablet 40 mg PO BEDTIME #90 tab 12/26/19 losartan 50 mg tablet 50 mg PO DAILY #90 tab 12/26/19 nitroglycerin 0.4 mg sublingual See Rx Instructions SUBLINGUAL PRN 12/26/19 tablet (Nitrostat) PRN #30 tab pantoprazole 40 mg tablet,delayed 40 mg PO DAILY #90 tab 12/26/19 release ferrous sulfate 325 mg (65 mg 325 mg PO DAILY #60 tab 02/13/20 iron) tablet gabapentin 300 mg capsule 300 mg PO TID #90 cap 03/21/20 (Neurontin) apixaban 5 mg tablet 5 mg PO BID #180 tab 08/01/20 mirtazapine 7.5 mg tablet 7.5 mg PO BEDTIME #30 tab 08/18/20 hydrocodone 5 mg-acetaminophen 325 1 tab PO Q6H PRN #120 tab 11/23/20 mg tablet cephalexin 500 mg capsule 500 mg PO BID 7 Days #14 cap 11/30/20 Allergies Allergy/AdvReac Type Severity Reaction Status Date / Time furosemide [FUROSEMIDE] Allergy Mild RASH Verified 11/30/20 16:19 sertraline [SERTRALINE] Allergy Mild FEELS Verified 11/30/20 16:19 DRUGGED lisinopril AdvReac Mild Cough Verified 11/30/20 16:19 Review of Systems Review of Systems ROS Unobtainable: All systems reviewed & are unremarkable except as noted in HPI and below 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) Asthma Breast cancer (~2001) CAD (coronary artery disease) Calcified nodule Cerebrovascular accident (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 right middle cerebral artery (04/27/17) Cervical cancer, FIGO stage I Cholelithiasis Chronic back pain Developmental disorder Essential hypertension (02/19/12) Fibrocystic breast disease GERD (gastroesophageal reflux disease) History of colon polyps (02/19/12) History of left breast cancer (~2008) Hyperlipidemia IBS (irritable bowel syndrome) Measles 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, bilateral Personal history of other malignant neoplasm of skin (02/19/12) 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) Systolic congestive heart failure with reduced left ventricular function, NYHA class 2 (10/26/10) Surgical History Anesthesia Status post arthroscopy Status post biopsy (~2014) Status post breast lumpectomy (~2008) Status post cholecystectomy Status post coronary artery bypass graft Status post hysterectomy (~2009) Social History household members: children Smoking Status: Never smoker alcohol intake: never Smoking Status: Never smoker alcohol intake frequency: holidays/special occasions only Substance Use Type: does not use Exam Narrative Exam Narrative: GEN: Elderly well-appearing female alert and oriented, patient appears to be in mild distress. Patient has some mild confusion on some history but is able to give other history quite clearly. HEENT: Atraumatic, pupils are equal round reactive to light, extraocular movements are intact, nares are clear, there is no conjunctival pallor. Throat is clear without any exudates, erythema, tonsillar enlargement or uvular deviation HEART: Regular rate and rhythm without murmur, clicks, rubs. LUNGS:Lungs clear to auscultation, no wheezes, rales, crackles, chest moves symmetrically ABD:bowel sounds normal, soft, generalized tenderness, nondistended, no guarding, rebound, rigidity, no masses noted, no hepatosplenomegaly. Stool neg. :No CVA tenderness. On external female exam is normal except for patient has some mild erythema but no obvious breakdown through the initial layers. MSCL: Non-tender, no muscle atrophy, muscles strength 5/5 upper and lower extremities, full range of motion NEURO:CN 2-12 intact, sensation normal SKIN: See above Initial Vital Signs Initial Vital Signs: Vital Signs Temperature 98.3 F 11/30/20 16:19 Pulse Rate 60 11/30/20 16:19 Respiratory Rate 16 11/30/20 16:19 Blood Pressure 192/118 H 11/30/20 16:19 Pulse Oximetry 97 11/30/20 16:19 Course Orders Ordered: Discontinued Medications Ceftriaxone Sodium 2,000 mg/ (Sodium Chloride) 100 mls @ 200 mls/hr IV NOW ONE Stop: 11/30/20 22:16 Last Infusion: 11/30/20 23:03 Dose: 0 mls/hr Documented by: Admin: 11/30/20 22:24 Dose: 200 mls/hr Documented by: JOEL Vital Signs Vital signs: Vital Signs - 8 hr 11/30/20 16:19 11/30/20 16:45 11/30/20 17:00 Temperature 98.3 F Pulse Rate 60 82 82 Respiratory Rate 16 19 17 Blood Pressure 192/118 H 146/113 H Pulse Oximetry 97 95 97 11/30/20 17:30 11/30/20 18:00 11/30/20 18:01 Temperature Pulse Rate 81 80 82 Respiratory Rate 15 17 16 Blood Pressure 202/98 H 192/145 H Pulse Oximetry 97 97 97 11/30/20 18:30 11/30/20 18:31 11/30/20 19:00 Temperature Pulse Rate 82 83 79 Respiratory Rate 16 16 Blood Pressure 162/95 H 144/85 H Pulse Oximetry 97 98 97 11/30/20 19:30 11/30/20 20:00 11/30/20 20:30 Temperature Pulse Rate 68 73 82 Respiratory Rate 20 19 17 Blood Pressure 156/84 H 162/89 H 152/80 H Pulse Oximetry 97 97 96 11/30/20 21:00 Temperature Pulse Rate 86 Respiratory Rate 18 Blood Pressure 176/80 H Pulse Oximetry 97 MDM - SOB/Dyspnea Lab Data Result diagrams: 11/30/20 16:15 11/30/20 16:15 Labs: Lab Results 11/30/20 11/30/20 11/30/20 Range/Units 16:15 16:15 16:15 WBC 9.8 (4.5-11.0) X10^3/uL RBC 4.40 (4.0-5.2) X10^6/uL Hgb 13.0 (12.0-16.0) g/dL Hct 41.0 (36-46) % MCV 93.4 (80-100) fL MCH 29.7 (26-34) PG MCHC 31.8 (30-36) % RDW 15.2 H (11.6-14.8) % Plt Count 231 (150-400) X10^3/uL Neut % (Auto) 74.2 (50-75) % Lymph % (Auto) 18.0 L (25-40) % [place] % (Auto) 6.2 (3-14) % Eos % (Auto) 0.8 L (2-4) % Baso % (Auto) 0.8 (0-2) % Neut # (Auto) 7300 H (7163-1180) /uL Lymph # (Auto) 1800 (9197-6559) /uL [place] # (Auto) 600 (0-900) /uL Eos # (Auto) 100 (0-450) /uL Baso # (Auto) 100 (0-100) /uL PT 14.1 H (10.1-12.7) SECONDS INR 1.3 (0.9-1.3) APTT 39 H (26.4-36.2) SECONDS Sodium 138 (137-145) mmol/L Potassium 4.1 (3.4-5.1) mmol/L Chloride 100 (98-107) mmol/L Carbon Dioxide 26 (22-32) mmol/L BUN 14 (7-17) mg/dL Creatinine 0.69 (0.52-1.04) mg/dL Estimated GFR > 60.0 (>60) mL/min BUN/Creatinine Ratio 20.3 (6-22) Glucose 88 (80-110) mg/dL Calcium 9.6 (8.4-10.2) mg/dL Total Bilirubin 0.9 (0.2-1.3) mg/dL AST 21 (14-36) IU/L ALT 10 (<35) IU/L Alkaline Phosphatase 122 (38-126) U/L Total Creatine Kinase (30-135) U/L CK-MB (CK-2) CK-MB (CK-2) Rel Index Troponin I (0.01-0.034) ng/mL NT-Pro-B Natriuret Pep (<450) pg/mL Total Protein 7.5 (6.3-8.2) g/dL Albumin 4.2 (3.5-5.0) g/dL Globulin 3.3 (1.7-4.1) g/dL Albumin/Globulin Ratio 1.3 (1.0-2.8) Lipase (23-300) U/L Urine RBC (0-5/HPF) Urine WBC (0-5/HPF) Ur Squamous Epith Cells (0-5/HPF) Urine Bacteria (None) Ur Culture Indicated? Blood Type Antibody Screen 11/30/20 11/30/20 11/30/20 Range/Units 16:15 16:15 16:15 WBC (4.5-11.0) X10^3/uL RBC (4.0-5.2) X10^6/uL Hgb (12.0-16.0) g/dL Hct (36-46) % MCV (80-100) fL MCH (26-34) PG MCHC (30-36) % RDW (11.6-14.8) % Plt Count (150-400) X10^3/uL Neut % (Auto) (50-75) % Lymph % (Auto) (25-40) % [place] % (Auto) (3-14) % Eos % (Auto) (2-4) % Baso % (Auto) (0-2) % Neut # (Auto) (5196-0100) /uL Lymph # (Auto) (2405-8088) /uL [place] # (Auto) (0-900) /uL Eos # (Auto) (0-450) /uL Baso # (Auto) (0-100) /uL PT (10.1-12.7) SECONDS INR (0.9-1.3) APTT (26.4-36.2) SECONDS Sodium (137-145) mmol/L Potassium (3.4-5.1) mmol/L Chloride (98-107) mmol/L Carbon Dioxide (22-32) mmol/L BUN (7-17) mg/dL Creatinine (0.52-1.04) mg/dL Estimated GFR (>60) mL/min BUN/Creatinine Ratio (6-22) Glucose (80-110) mg/dL Calcium (8.4-10.2) mg/dL Total Bilirubin (0.2-1.3) mg/dL AST (14-36) IU/L ALT (<35) IU/L Alkaline Phosphatase (38-126) U/L Total Creatine Kinase 21 L (30-135) U/L CK-MB (CK-2) TNP CK-MB (CK-2) Rel Index TNP Troponin I < 0.012 (0.01-0.034) ng/mL NT-Pro-B Natriuret Pep 1790 H (<450) pg/mL Total Protein (6.3-8.2) g/dL Albumin (3.5-5.0) g/dL Globulin (1.7-4.1) g/dL Albumin/Globulin Ratio (1.0-2.8) Lipase 80 (23-300) U/L Urine RBC (0-5/HPF) Urine WBC (0-5/HPF) Ur Squamous Epith Cells (0-5/HPF) Urine Bacteria (None) Ur Culture Indicated? Blood Type O Positive Antibody Screen Negative 11/30/20 Range/Units 21:09 WBC (4.5-11.0) X10^3/uL RBC (4.0-5.2) X10^6/uL Hgb (12.0-16.0) g/dL Hct (36-46) % MCV (80-100) fL MCH (26-34) PG MCHC (30-36) % RDW (11.6-14.8) % Plt Count (150-400) X10^3/uL Neut % (Auto) (50-75) % Lymph % (Auto) (25-40) % [place] % (Auto) (3-14) % Eos % (Auto) (2-4) % Baso % (Auto) (0-2) % Neut # (Auto) (2879-1740) /uL Lymph # (Auto) (8120-2239) /uL [place] # (Auto) (0-900) /uL Eos # (Auto) (0-450) /uL Baso # (Auto) (0-100) /uL PT (10.1-12.7) SECONDS INR (0.9-1.3) APTT (26.4-36.2) SECONDS Sodium (137-145) mmol/L Potassium (3.4-5.1) mmol/L Chloride (98-107) mmol/L Carbon Dioxide (22-32) mmol/L BUN (7-17) mg/dL Creatinine (0.52-1.04) mg/dL Estimated GFR (>60) mL/min BUN/Creatinine Ratio (6-22) Glucose (80-110) mg/dL Calcium (8.4-10.2) mg/dL Total Bilirubin (0.2-1.3) mg/dL AST (14-36) IU/L ALT (<35) IU/L Alkaline Phosphatase (38-126) U/L Total Creatine Kinase (30-135) U/L CK-MB (CK-2) CK-MB (CK-2) Rel Index Troponin I (0.01-0.034) ng/mL NT-Pro-B Natriuret Pep (<450) pg/mL Total Protein (6.3-8.2) g/dL Albumin (3.5-5.0) g/dL Globulin (1.7-4.1) g/dL Albumin/Globulin Ratio (1.0-2.8) Lipase (23-300) U/L Urine RBC None seen (0-5/HPF) Urine WBC 30-100/hpf H (0-5/HPF) Ur Squamous Epith Cells 0-1 /hpf (0-5/HPF) Urine Bacteria Many (>30) H (None) Ur Culture Indicated? Specimen cultured Blood Type Antibody Screen Urine Dip Bedside Urine Glucose Negative Bedside Urine Bilirubin - Negative Bedside Urine Ketone + 15 Urine Specific [place] 1.025 Bedside Urine Occult Blood + Bedside Urine pH 6.0 Bedside Urine Protein + 30 Bedside Urine Urobilinogen - Negative Bedside Urine Nitrite + Positive Bedside Urine Leukocytes ++ 125 Esterase Imaging Data Chest x-ray: Radiologist's Impression: Close Abdomen/Pelvis CT (Signed) Jay Hernadez - 11/30/20 Chest X-Ray (Signed) Jay Hernadez - 11/30/20 Chest X-Ray (Signed) Holden Cruz - 10/29/20 Abdomen/Pelvis CTA (Signed) Rosemarie Meehan - 08/17/20 Telemetry Strips 08/17/[address] (Signed) [place] - 08/17/20 Chest X-Ray (Signed) Kristel Salinas - 08/17/20 Abdomen/Pelvis CT (Signed) [place] - 08/17/20 Abdomen/Pelvis CT (Signed) Felix Lomeli - 04/07/20 Abdomen/Pelvis CT (Signed) Ysosi Daigle - 04/18/19 Abdomen/Pelvis CT (Signed) [place],Felix - 02/13/19 Modified Barium Swallow (Signed) Anival Turner - 01/12/19 Abdomen/Pelvis CT (Signed) Emi Leon - 01/11/19 Chest X-Ray (Signed) Bhanu Salinasence - 01/10/19 Chest X-Ray (Signed) Rosemarie Meehan - 01/09/[address] (Signed) Eh Martinez - 01/07/19 Echocardiogram Ultrasound (Signed) Natan Plascencia - 01/07/19 Chest X-Ray (Signed) Eh Martinez - 01/06/19 Chest X-Ray (Signed) Anival Turner - 01/06/19 Shoulder X-Ray (Signed) Chris Aparicio - 01/01/19 Elbow X-Ray (Signed) Chris Aparicio - 01/01/19 Chest X-Ray (Signed) Chris Aparicio - 01/01/[address] (Signed) Eh Martinez - 12/03/17 Chest X-Ray (Signed) Chris Aparicio - 12/03/17 Telemetry Strips 12/03/[address] (Signed) Eh Martinez - 10/27/17 Abdomen/Pelvis CT (Signed) [place] - 10/27/17 DI Result CC 10/08/17 DI Result CC 10/07/17 DI Result CC 10/06/17 Launch?Image [address] [address] XRay Report Signed Patient: Chana Garrido MR#: [id number] : 1935 Acct:[id number] Age/Sex: 85 / F Date of Service: 11/30/20 Loc: ED Accession Number: [id number] ?? Procedure: XR chest 1V Ordering Provider: Brittnee Hatch D.O. PROCEDURE:? XR CHEST 1V ? INDICATIONS:? shortness of breath ? TECHNIQUE:? One view of the chest was acquired.? ? COMPARISON:? [facility], CR, XR CHEST 2V, 01/10/2019, 5:32.? [facility], CR, XR CHEST 1V, 08/17/2020, 10:40.? [facility], CR, XR CHEST 1V, 10/29/2020, 19:26. ? FINDINGS:? ? Surgical changes and devices:? Sternotomy and CABG.? ? Lungs and pleura:? Lungs are clear.? No pleural effusions or pneumothorax.? ? Mediastinum:? Mediastinal contours appear normal.? Heart size is normal.? ? Bones and chest wall:? No suspicious bony lesions.? Overlying soft tissues appear unremarkable.? ? IMPRESSION:? No acute cardiopulmonary disease. ? ? ? Dictated by: Sadie Hernadez M.D. on 11/30/2020 at 21:55 ? ? Approved by: Sadie Hernadez M.D. on 11/30/2020 at 21:57?? CT scan - abdomen/pelvis: Radiologist's Impression: [place] [address] CT Scan Report Signed Patient: Chana Garrido MR#: [id number] : 1935 Acct:[id number] Age/Sex: 85 / F Date of Service: 11/30/20 Loc: ED Accession Number: [id number] ?? Procedure: CT abdomen pelvis w con Ordering Provider: Brittnee Hatch D.O. PROCEDURE:? CT ABDOMEN PELVIS W CON ? INDICATIONS:? generalized abd pain ? TECHNIQUE:? After the administration of intravenous contrast, axial sections acquired from the lung bases to the pubic symphysis.? Coronal and sagittal reformats were performed.? For radiation dose reduction, the following was used:? automated exposure control, adjustment of mA and/or kV according to patient size.? ? COMPARISON:? [facility], CT, CT ABDOMEN PELVIS W CON, 04/07/2020, 11:25.? [facility], CT, CT ABDOMEN PELVIS W CON, 04/18/2019, 18:00.? [facility], CT, CT ABDOMEN PELVIS W CON, 08/17/2020, 11:12. ? FINDINGS:? Image quality:? Excellent.? ? Lung bases:? Unremarkable. Heart:? No significant findings. ? ABDOMEN: Liver:? Unremarkable.? ? Gallbladder:? Surgically absent.? ? Biliary ducts:? Mild intrahepatic biliary dilation.? Common bile duct is prominent measuring 1.1 cm.? ? Pancreas:? Unremarkable.? ? Spleen:? Unremarkable.? ? Adrenal Glands:? Unremarkable.? ? Kidneys and Ureters:? Kidneys are normal in size and symmetrical enhancement.? There is a 1.9 cm simple appearing cyst in right kidney.? No renal stones or hydronephrosis..? ? ? Stomach and Bowel:? Stomach, small bowel loops, and colon are normal in caliber.? There is fluid in the right colon with several air-fluid levels.? There is abundant colonic gas.? No CT findings to suggest bowel obstruction. Peritoneum:? Trace amount of intraperitoneal fluid.? No free air.? ? Ventral Wall: ? No hernias.? Abdominal Nodes:? No retroperitoneal or mesenteric adenopathy by size criteria.? Vessels:? Aorta and inferior vena cava are normal in size.? Moderate atherosclerosis. ? PELVIS: Pelvic Organs:? Uterus is absent.? Ovaries are not visualized. Bladder:? Unremarkable.? ? Pelvic Nodes: No enlarged lymph nodes.? Miscellaneous: No hernias are seen. ? ? ? Bones:? Scoliosis and degenerative changes in spine.? IMPRESSION:? ? 1. Fluid filled colon loops with air-fluid levels.? The CT findings are nonspecific and most likely secondary to gastroenteritis.? No findings to suggest bowel obstruction. 2. Distended biliary ducts are likely secondary to cholecystectomy.? Please correlate with serum bilirubin. 3. A 1.9 cm simple cyst in the right kidney.? Dictated by: Sadie Hernadez M.D. on 11/30/2020 at 21:38 ? ? Approved by: Sadie Hernadez M.D. on 11/30/2020 at 21:5 ECG Data Attestation: I personally reviewed and interpreted this ECG as follows: Interpretation: AFib with rate 80 QRS 86 and QTC of 459. Patient has some inverted T-waves 2 3 AVF as well as in lateral leads. No elevation appreciated. Patient does have PVCs. Patient has prior EKGs with no new changes in 2,3, and avF. Lateral leads nonspecific change. MDM Narrative Medical decision making narrative: This is an 85-year-old female who comes with complaint of diarrhea. She has noted some dark almost blackish stools. No obvious changes in stool here. Patient also notes she has pain when she urinates. Patient's urine is suspicious for UTI. She does not appear to be septic. Negative troponin, no acute EKG changes she is anticoagulated appropriately for prior protein S and C deficiency and chronic atrial fibrillation with prior strokes. Patient treated for UTI here in the department. Patient able discharged home with prescription to pharmacy. Discharge Plan Departure Patient Disposition: Home Clinical Impression: Acute UTI, Renal cyst Instructions: DI for Urinary Tract Infection (UTI) Activity Restrictions/Additional Instructions: Your urine shows an infection today. Urine culture is pending. Take antibiotics until completely gone. Prescription sent to [facility] pharmacy. Fevers, new confusion or altered mental status, chest pain, shortness of breath, persistent vomiting, abdominal or back pain. Recurrent black or bloody stools, new swelling of extremities or other new or concerning symptoms. Prescriptions: New cephalexin 500 mg capsule 500 mg PO BID 7 Days Qty: 14 RF: 0 No Action albuterol sulfate [Proventil HFA] 90 mcg/actuation HFA aerosol inhaler 2 puff INHALATION Q6H PRN (Reason: shortness of breath or wheezing) Qty: 8 RF: 0 (DME) Aerochamber MV Spacer See Rx Instructions .ROUTE .MEDSUPPLY Qty: 1 RF: 0 aspirin 81 mg tablet,chewable 81 mg PO DAILY RF: 0 metoprolol tartrate 25 mg tablet 12.5 mg PO DAILY RF: 0 ferrous sulfate 325 mg (65 mg iron) tablet 325 mg PO DAILY Qty: 60 RF: 2 gabapentin [Neurontin] 300 mg capsule 300 mg PO TID Qty: 90 RF: 5 Hold Instructions: stopped at [facility] apixaban 5 mg tablet 5 mg PO BID Qty: 180 RF: 1 hydrocodone-acetaminophen 5-325 mg tablet 1 tab PO Q6H PRN (Reason: pain) Qty: 120 RF: 0 atorvastatin 40 mg tablet 40 mg PO BEDTIME Qty: 90 RF: 3 nitroglycerin [Nitrostat] 0.4 mg tablet, sublingual See Rx Instructions Sublingual PRN PRN (Reason: Chest Pain) Qty: 30 RF: 0 losartan 50 mg tablet 50 mg PO DAILY Qty: 90 RF: 3 pantoprazole 40 mg tablet,delayed release (DR/EC) 40 mg PO DAILY Qty: 90 RF: 1 (DME) Handicap Parking Qty: 1 RF: 0 mupirocin 2 % ointment 1 applic Topical DIRECTED RF: 0 Spacer: Inhaler Spacer Device 1 ea miscellaneous DIRECTED RF: 0 ondansetron HCl 4 mg tablet 4 mg PO Q6H PRN (Reason: nausea and vomiting) Qty: 20 RF: 0 mirtazapine 7.5 mg tablet 7.5 mg PO BEDTIME Qty: 30 RF: 0 Referrals: Heather Tapia DO [Primary Care Provider] -
--- NOTE | 2020-11-30 20:44 | DI.RAD.S_ITS ---
PROCEDURE: XR CHEST 1V INDICATIONS: shortness of breath TECHNIQUE: One view of the chest was acquired. COMPARISON: [facility], CR, XR CHEST 2V, 01/10/2019, 5:32. [facility] With [facility], CR, XR CHEST 1V, 08/17/2020, 10:40. Merged With [facility], CR, XR CHEST 1V, 10/29/2020, 19:26. FINDINGS: Surgical changes and devices: Sternotomy and CABG. Lungs and pleura: Lungs are clear. No pleural effusions or pneumothorax. Mediastinum: Mediastinal contours appear normal. Heart size is normal. Bones and chest wall: No suspicious bony lesions. Overlying soft tissues appear unremarkable. IMPRESSION: No acute cardiopulmonary disease. Dictated by: Sadie Hernadez M.D. on 11/30/2020 at 21:55 Approved by: Sadie Hernadez M.D. on 11/30/2020 at 21:57
--- NOTE | 2020-11-30 20:56 | DI.CT.S_ITS ---
PROCEDURE: CT ABDOMEN PELVIS W CON INDICATIONS: generalized abd pain TECHNIQUE: After the administration of intravenous contrast, axial sections acquired from the lung bases to the pubic symphysis. Coronal and sagittal reformats were performed. For radiation dose reduction, the following was used: automated exposure control, adjustment of mA and/or kV according to patient size. COMPARISON: [facility], CT, CT ABDOMEN PELVIS W CON, 04/07/2020, 11:25. [facility], CT, CT ABDOMEN PELVIS W CON, 04/18/2019, 18:00. [facility], CT, CT ABDOMEN PELVIS W CON, 08/17/2020, 11:12. FINDINGS: Image quality: Excellent. Lung bases: Unremarkable. Heart: No significant findings. ABDOMEN: Liver: Unremarkable. Gallbladder: Surgically absent. Biliary ducts: Mild intrahepatic biliary dilation. Common bile duct is prominent measuring 1.1 cm. Pancreas: Unremarkable. Spleen: Unremarkable. Adrenal Glands: Unremarkable. Kidneys and Ureters: Kidneys are normal in size and symmetrical enhancement. There is a 1.9 cm simple appearing cyst in right kidney. No renal stones or hydronephrosis.. Stomach and Bowel: Stomach, small bowel loops, and colon are normal in caliber. There is fluid in the right colon with several air-fluid levels. There is abundant colonic gas. No CT findings to suggest bowel obstruction. Peritoneum: Trace amount of intraperitoneal fluid. No free air. Ventral Wall: No hernias. Abdominal Nodes: No retroperitoneal or mesenteric adenopathy by size criteria. Vessels: Aorta and inferior vena cava are normal in size. Moderate atherosclerosis. PELVIS: Pelvic Organs: Uterus is absent. Ovaries are not visualized. Bladder: Unremarkable. Pelvic Nodes: No enlarged lymph nodes. Miscellaneous: No hernias are seen. Bones: Scoliosis and degenerative changes in spine. IMPRESSION: 1. Fluid filled colon loops with air-fluid levels. The CT findings are nonspecific and most likely secondary to gastroenteritis. No findings to suggest bowel obstruction. 2. Distended biliary ducts are likely secondary to cholecystectomy. Please correlate with serum bilirubin. 3. A 1.9 cm simple cyst in the right kidney. Dictated by: Sadie Hernadez M.D. on 11/30/2020 at 21:38 Approved by: Sadie Hernadez M.D. on 11/30/2020 at 21:50
[2020-11-30 21:21] LABS: Creatine Kinase 21 U/L (30-135)
[2020-11-30 21:22] LABS: Lipase 80 U/L (23-300)
[2020-11-30 21:31] LABS: Bacteria Urine Many (>30); RBC Urine None Seen (0-5/HPF); Squamous Epithelial Cell Urine 0-1 /HPF (0-5/HPF); WBC Urine 30-100/HPF (0-5/HPF)
[2020-11-30 21:32] LABS: Culture Indicated Urine Specimen Cultured
[2020-11-30 21:34] LABS: NT-proBNP (BNP-Adult 18+) 1790 pg/mL (<450); Troponin I < 0.012 ng/mL (0.01-0.034)
[2020-11-30] MEDS: cefTRIAXone 2,000 MG in SODIUM CHLORIDE 0.9% 100 ML 200 ML IV (22:24)
--- NOTE | 2020-11-30 23:24 | PC.NURSE ---
Number left for patient from son was for neighbor Carl, spoke to her about discharge and that patient will be returning home via taxi. Carl acknowledged and said she would assist with patient. Number for Carl given to [employer] driver. Was unable to get in touch with son during patient's stay in the ED, per neighbor and patient, Heath does not have his own phone number.
== END 2020-11-30 23:25 | disposition home or self-care (01) ==
PROVIDERS: Emergency Medicine; Emergency Provider Emergency Medicine; PCP Family Medicine
DX: N39.0 Urinary tract infection, site not specified (principal); N28.1 Cyst of kidney, acquired; R06.02 Shortness of breath; R10.84 Generalized abdominal pain; R19.7 Diarrhea, unspecified
CPT/HCPCS: 36415; 71045; 74177; 80053; 81003; 81015; 82550; 83690; 83880; 84484; 85025; 85610; 85730; 86850; 86900; 86901; 87077; 87086; 87186; 93005; 93010; 96365; 99284; J0696; Q9967

== ENCOUNTER → 2021-04-10 15:35 | Outpatient (CLI) | payer MEDICARE, OTHER, SELFPAY ==
[2021-04-08 11:00] VITALS: BMI 22.8
[2021-04-10 16:15] LABS: Add Manual Diff / Slide Review NO; Basophils Absolute Auto 0 /uL (0-100); Basophils Percent Auto 0.5 % (0-2); Eosinophils Absolute Auto 100 /uL (0-450); Eosinophils Percent Auto 1.1 % (2-4); Hematocrit 38.6 % (36-46); Hemoglobin 12.4 g/dL (12.0-16.0); Lymphocytes Absolute Auto 1300 /uL (1100-4500); Lymphocytes Percent Auto 18.5 % (25-40); Mean Corpuscular HGB Conc 32.1 % (30-36); Mean Corpuscular Hemoglobin 30.3 PG (26-34); Mean Corpuscular Volume 94.5 fL (80-100); Monocytes Absolute Auto 500 /uL (0-900); Monocytes Percent Auto 7.1 % (3-14); Neutrophils Absolute Auto 5000 /uL (1500-7000); Neutrophils Percent Auto 72.8 % (50-75); Platelet Count 203 X10^3/uL (150-400); Red Blood Cell Count 4.08 X10^6/uL (4.0-5.2); Red Cell Distribution Width 14.8 % (11.6-14.8); White Blood Cell Count 6.9 X10^3/uL (4.5-11.0)
[2021-04-10 17:34] LABS: Alanine Aminotransferase 14 IU/L (<35); Albumin Globulin Ratio 1.1 (1.0-2.8); Alkaline Phosphatase 114 U/L (38-126); Aspartate Aminotransferase 35 IU/L (14-36); BUN Creatinine Ratio 27.3 (6-22); Bilirubin Total 0.9 mg/dL (0.2-1.3); Blood Urea Nitrogen 24 mg/dL (7-17); Calcium 9.3 mg/dL (8.4-10.2); Carbon Dioxide 30 mmol/L (22-32); Chloride 104 mmol/L (98-107); Cholesterol 182 mg/dL (140-199); Creatinine Urine Random 52.3 mg/dL; Estimated Glomerular Filt Rate > 60.0 mL/min (>60); Globulin 3.7 g/dL (1.7-4.1); Glucose 89 mg/dL (80-110); HDL Cholesterol 79 mg/dL (40-60); HEMOLYSIS 27 (0-50); LDL Cholesterol Calculated 80 mg/dL (<100); Potassium 4.8 mmol/L (3.4-5.1); Sodium 137 mmol/L (137-145); Total Protein 7.7 g/dL (6.3-8.2); Triglycerides 114 mg/dL (35-150)
[2021-04-10 17:35] LABS: Microalbumi Creatinin Ratio Ur 32.5 ug/mg CR (<30); Microalbumin Urine Random 1.7 mg/dL (0-1.6)
== END ==
PROVIDERS: PCP Family Medicine; Referring Provider Family Medicine; Visit Provider Family Medicine
DX: I10 Essential (primary) hypertension (principal); I25.10 Atherosclerotic heart disease of native coronary artery without angina pectoris; I48.91 Unspecified atrial fibrillation; I50.20 Unspecified systolic (congestive) heart failure; I63.411 Cerebral infarction due to embolism of right middle cerebral artery
CPT/HCPCS: 80053; 80061; 82043; 82570; 85025

== ENCOUNTER 2021-06-10 08:47 | Emergency (ER) | payer MEDICARE, OTHER, SELFPAY ==
[2021-04-08 11:00] VITALS: BMI 22.8
[2021-06-10] VITALS (43 sets, daily range): BP systolic 150–214; BP diastolic 69–118; PULSE 50–127; RESP 15–51; TEMP 36.7; O2SAT 90–100; BMI 25.4
--- NOTE | 2021-06-10 08:55 | ED_ITS ---
HPI - SOB/Dyspnea General Chief Complaint: Shortness of Breath/Dyspnea Stated Complaint: Pneumonia Time Seen by Provider: 06/10/21 08:54 History of Present Illness HPI Narrative: 86-year-old female nonsmoker with history of chronic pain, AFib on anticoagulation, CHF, prior stroke presents for evaluation of a sharp and stabbing, reproducible anterior chest pain after loading up many boxes in attempt to move out of her trailer yesterday. Her pain is worse with palpation with motion as well as deep breath. She denies exertional symptoms, she denies any cough, fever or chills. She denies any swelling in her lower extremities nor shortness of breath while lying flat. She denies dysuria, frequency or urgency. She states she packed her medications box Related Data Home Medications Medication Instructions Recorded Confirmed Spacer: Inhaler Spacer Device 1 ea MISCELLANEOUS DIRECTED 10/27/17 03/09/20 aspirin 81 mg chewable tablet 81 mg PO DAILY 12/23/19 03/09/20 Previous Rx's Medication Instructions Recorded Handicap Parking #1 ea 06/04/18 albuterol sulfate 90 mcg/actuation 2 puff INHALATION Q6H PRN #8 gram 02/22/19 aerosol inhaler (Proventil HFA) inhalational spacing device #1 each 03/24/19 (Aerochamber MV) ferrous sulfate 325 mg (65 mg 325 mg PO DAILY #60 tab 02/13/20 iron) tablet apixaban 5 mg tablet 5 mg PO BID #180 tab 08/01/20 nitroglycerin 0.4 mg sublingual See Rx Instructions SUBLINGUAL PRN 03/18/21 tablet (Nitrostat) PRN #30 tab gabapentin 300 mg capsule 300 mg PO TID #270 cap 04/10/21 (Neurontin) atorvastatin 40 mg tablet 40 mg PO BEDTIME #90 tab 05/03/21 metoprolol tartrate 25 mg tablet 12.5 mg PO DAILY #45 tab 05/03/21 pantoprazole 40 mg tablet,delayed 40 mg PO DAILY #90 tab 05/03/21 release losartan 50 mg tablet 50 mg PO DAILY #90 tab 05/15/21 hydrocodone 7.5 mg-acetaminophen 1 tab PO Q6H PRN #120 tab 06/06/21 325 mg tablet Allergies Allergy/AdvReac Type Severity Reaction Status Date / Time furosemide [FUROSEMIDE] Allergy Mild RASH Verified 06/10/21 14:05 sertraline [SERTRALINE] Allergy Mild FEELS Verified 06/10/21 14:05 DRUGGED lisinopril AdvReac Mild Cough Verified 06/10/21 14:05 Review of Systems Review of Systems Narrative: GENERAL: Denies chills, fatigue, malaise, fever, sweats. HEENT: Denies sinus pain, ear pain, sore throat, difficulty swallowing, dizziness. RESPIRATORY: See HPI CARDIOVASCULAR: See HPI GASTROINTESTINAL: Denies nausea, vomiting, abdominal pain, diarrhea, constipation, melena. : Denies dysuria, frequency, incontinence, hematuria, urinary retention. MUSCULOSKELETAL: denies weakness, joint pain, or bony pain SKIN: Denies rash, skin lesions, or other NEUROLOGIC: Denies weakness, headache, numbness, change in speech, confusion, seizures, incoordination. PSYCHIATRIC: No concerning psychosocial issues. 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) Asthma Breast cancer (~2001) CAD (coronary artery disease) Calcified nodule Cerebrovascular accident (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 right middle cerebral artery (04/27/17) Cervical cancer, FIGO stage I Cholelithiasis Chronic back pain Developmental disorder Diarrhea Essential hypertension (02/19/12) Failure to thrive in adult Fibrocystic breast disease GERD (gastroesophageal reflux disease) History of colon polyps (02/19/12) History of left breast cancer (~2008) Hyperlipidemia IBS (irritable bowel syndrome) Measles 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, bilateral Personal history of other malignant neoplasm of skin (02/19/12) 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) Systolic congestive heart failure with reduced left ventricular function, NYHA class 2 (10/26/10) Surgical History Anesthesia Status post arthroscopy Status post biopsy (~2014) Status post breast lumpectomy (~2008) Status post cholecystectomy Status post coronary artery bypass graft Status post hysterectomy (~2009) Social History household members: children Smoking Status: Never smoker alcohol intake: never Smoking Status: Never smoker alcohol intake frequency: holidays/special occasions only Substance Use Type: does not use Exam Narrative Exam Narrative: GENERAL: [86 year old patient appears stated age. Well-developed patient, in mild distress. HEAD: Atraumatic. Normocephalic. EYES: Pupils equal round and reactive. Extraocular motions intact. No scleral icterus. No injection or drainage. ENT: Nose without bleeding, purulent drainage. Throat without erythema, tonsillar hypertrophy or exudate. Airway patent. NECK: Trachea midline. Non tender CARDIOVASCULAR: Regular rate and rhythm without murmurs, gallops, or rubs. Anterior chest pain tender to palpation, this reproduces the pain that brought her in. RESPIRATORY: Clear to auscultation. Breath sounds equal bilaterally. No wheezes, rales, or rhonchi. GASTROINTESTINAL: Abdomen soft, non-tender, nondistended. EXTREMITIES: No edema or joint tenderness. BACK: Nontender without deformity or crepitance. No flank tenderness. NEURO: AOx3. SKIN: No rash or erythema of visible areas Initial Vital Signs Initial Vital Signs: Vital Signs Pulse Rate 127 H 06/10/21 08:51 Blood Pressure 203/96 H 06/10/21 08:51 Pulse Oximetry 94 06/10/21 08:51 Course Orders Ordered: ED Orders 06/10/21 11:20 Troponin & CK Cardiac Panel Stat 06/10/21 11:23 Urinalysis and Microscopic Stat Urine Culture Stat 06/10/21 12:36 Consult to Physical Therapy Evaluate & Treat Discontinued Medications Hydrocodone Bitart/Acetaminophen (Hydrocodone/Acet 5/325 Tablet) 1 tab PO NOW ONE Stop: 06/10/21 17:20 Last Admin: 06/10/21 17:31 Dose: 1 tab Documented by: KELLEN Albuterol/Ipratropium (Albuterol/Ipratropium 3 Ml Ampul) 3 ml INH NOW ONE Stop: 06/10/21 17:41 Last Admin: 06/10/21 17:49 Dose: 3 ml Documented by: LAKESHA Labetalol HCl (Labetalol 20 Mg/4 Ml Syringe) 10 mg IV NOW ONE Stop: 06/10/21 14:22 Last Admin: 06/10/21 14:30 Dose: 10 mg Documented by: KELLEN Metoprolol Tartrate (Metoprolol Ir 25 Mg Tablet) 25 mg PO NOW ONE Stop: 06/10/21 10:38 Last Admin: 06/10/21 11:26 Dose: 25 mg Documented by: KELLEN Vital Signs Vital signs: Vital Signs - 8 hr 06/10/21 11:00 06/10/21 11:30 06/10/21 12:00 Pulse Rate 86 120 H 85 Respiratory Rate 17 43 H 28 H Blood Pressure 205/84 H Pulse Oximetry 95 06/10/21 12:01 06/10/21 12:30 06/10/21 12:31 Pulse Rate 84 71 75 Respiratory Rate 32 H 26 H 27 H Blood Pressure 156/78 H Pulse Oximetry 90 L 94 100 06/10/21 13:00 06/10/21 13:01 06/10/21 13:30 Pulse Rate 63 63 79 Respiratory Rate 18 17 30 H Blood Pressure 200/81 H Pulse Oximetry 100 99 100 06/10/21 14:00 06/10/21 14:07 06/10/21 14:30 Pulse Rate 64 69 63 Respiratory Rate 35 H 36 H 32 H Blood Pressure 214/88 H 214/88 H Pulse Oximetry 96 97 96 06/10/21 14:40 06/10/21 15:00 06/10/21 15:05 Pulse Rate 67 76 70 Respiratory Rate 33 H 51 H 44 H Blood Pressure 171/69 H 193/82 H Pulse Oximetry 96 06/10/21 15:14 06/10/21 17:50 Pulse Rate 66 Respiratory Rate 29 H Blood Pressure 186/91 H Pulse Oximetry 92 96 MDM - SOB/Dyspnea Lab Data Result diagrams: 06/10/21 09:10 06/10/21 09:10 Labs: Lab Results 06/10/21 06/10/21 06/10/21 Range/Units 08:56 09:10 09:10 WBC 7.0 (4.5-11.0) X10^3/uL RBC 3.30 L (4.0-5.2) X10^6/uL Hgb 10.3 L (12.0-16.0) g/dL Hct 30.8 L (36-46) % MCV 93.4 (80-100) fL MCH 31.1 (26-34) PG MCHC 33.3 (30-36) % RDW 14.8 (11.6-14.8) % Plt Count 224 (150-400) X10^3/uL Neut % (Auto) 76.6 H (50-75) % Lymph % (Auto) 13.7 L (25-40) % [place] % (Auto) 8.1 (3-14) % Eos % (Auto) 1.1 L (2-4) % Baso % (Auto) 0.5 (0-2) % Neut # (Auto) 5400 (6424-7861) /uL Lymph # (Auto) 1000 L (6860-6866) /uL [place] # (Auto) 600 (0-900) /uL Eos # (Auto) 100 (0-450) /uL Baso # (Auto) 0 (0-100) /uL D-Dimer 381 H (<230) ng/mL Sodium (137-145) mmol/L Potassium (3.4-5.1) mmol/L Chloride (98-107) mmol/L Carbon Dioxide (22-32) mmol/L BUN (7-17) mg/dL Creatinine (0.52-1.04) mg/dL Estimated GFR (>60) mL/min BUN/Creatinine Ratio (6-22) Glucose (80-110) mg/dL Lactate (0.7-2.1) mmol/L Calcium (8.4-10.2) mg/dL Total Bilirubin (0.2-1.3) mg/dL AST (14-36) IU/L ALT (<35) IU/L Alkaline Phosphatase (38-126) U/L Total Creatine Kinase (30-135) U/L CK-MB (CK-2) CK-MB (CK-2) Rel Index Troponin I (0.01-0.034) ng/mL NT-Pro-B Natriuret Pep (<450) pg/mL Total Protein (6.3-8.2) g/dL Albumin (3.5-5.0) g/dL Globulin (1.7-4.1) g/dL Albumin/Globulin Ratio (1.0-2.8) Procalcitonin (<0.5) ng/mL Urine Color Urine Appearance Urine pH (4.5-8.0) Ur Specific [place] (1.000-1.035) Urine Protein (Negative) Urine Glucose (UA) (Negative) g/dL Urine Ketones (NEGATIVE) Urine Occult Blood (Negative) Urine Nitrate (Negative) Urine Bilirubin (NEGATIVE) Urine Urobilinogen (0.2) E.U./dL Ur Leukocyte Esterase (NEGATIVE) Urine RBC (0-5/HPF) Urine WBC (0-5/HPF) Urine Bacteria (None) Ur Culture Indicated? SARS-CoV-2 (PCR) Negative (Negative) 06/10/21 06/10/21 06/10/21 Range/Units 09:10 09:10 11:20 WBC (4.5-11.0) X10^3/uL RBC (4.0-5.2) X10^6/uL Hgb (12.0-16.0) g/dL Hct (36-46) % MCV (80-100) fL MCH (26-34) PG MCHC (30-36) % RDW (11.6-14.8) % Plt Count (150-400) X10^3/uL Neut % (Auto) (50-75) % Lymph % (Auto) (25-40) % [place] % (Auto) (3-14) % Eos % (Auto) (2-4) % Baso % (Auto) (0-2) % Neut # (Auto) (5252-2542) /uL Lymph # (Auto) (2296-2754) /uL [place] # (Auto) (0-900) /uL Eos # (Auto) (0-450) /uL Baso # (Auto) (0-100) /uL D-Dimer (<230) ng/mL Sodium 137 (137-145) mmol/L Potassium 4.7 (3.4-5.1) mmol/L Chloride 106 (98-107) mmol/L Carbon Dioxide 26 (22-32) mmol/L BUN 16 (7-17) mg/dL Creatinine 0.83 (0.52-1.04) mg/dL Estimated GFR > 60 (>60) mL/min BUN/Creatinine Ratio 19.3 (6-22) Glucose 121 H (80-110) mg/dL Lactate 0.7 (0.7-2.1) mmol/L Calcium 9.1 (8.4-10.2) mg/dL Total Bilirubin 0.8 (0.2-1.3) mg/dL AST 29 (14-36) IU/L ALT 20 (<35) IU/L Alkaline Phosphatase 135 H (38-126) U/L Total Creatine Kinase 72 64 (30-135) U/L CK-MB (CK-2) TNP TNP CK-MB (CK-2) Rel Index TNP TNP Troponin I < 0.012 < 0.012 (0.01-0.034) ng/mL NT-Pro-B Natriuret Pep 8750 H (<450) pg/mL Total Protein 7.6 (6.3-8.2) g/dL Albumin 4.1 (3.5-5.0) g/dL Globulin 3.5 (1.7-4.1) g/dL Albumin/Globulin Ratio 1.2 (1.0-2.8) Procalcitonin 0.07 (<0.5) ng/mL Urine Color Urine Appearance Urine pH (4.5-8.0) Ur Specific [place] (1.000-1.035) Urine Protein (Negative) Urine Glucose (UA) (Negative) g/dL Urine Ketones (NEGATIVE) Urine Occult Blood (Negative) Urine Nitrate (Negative) Urine Bilirubin (NEGATIVE) Urine Urobilinogen (0.2) E.U./dL Ur Leukocyte Esterase (NEGATIVE) Urine RBC (0-5/HPF) Urine WBC (0-5/HPF) Urine Bacteria (None) Ur Culture Indicated? SARS-CoV-2 (PCR) (Negative) 06/10/21 Range/Units 11:23 WBC (4.5-11.0) X10^3/uL RBC (4.0-5.2) X10^6/uL Hgb (12.0-16.0) g/dL Hct (36-46) % MCV (80-100) fL MCH (26-34) PG MCHC (30-36) % RDW (11.6-14.8) % Plt Count (150-400) X10^3/uL Neut % (Auto) (50-75) % Lymph % (Auto) (25-40) % [place] % (Auto) (3-14) % Eos % (Auto) (2-4) % Baso % (Auto) (0-2) % Neut # (Auto) (9379-1827) /uL Lymph # (Auto) (9547-3779) /uL [place] # (Auto) (0-900) /uL Eos # (Auto) (0-450) /uL Baso # (Auto) (0-100) /uL D-Dimer (<230) ng/mL Sodium (137-145) mmol/L Potassium (3.4-5.1) mmol/L Chloride (98-107) mmol/L Carbon Dioxide (22-32) mmol/L BUN (7-17) mg/dL Creatinine (0.52-1.04) mg/dL Estimated GFR (>60) mL/min BUN/Creatinine Ratio (6-22) Glucose (80-110) mg/dL Lactate (0.7-2.1) mmol/L Calcium (8.4-10.2) mg/dL Total Bilirubin (0.2-1.3) mg/dL AST (14-36) IU/L ALT (<35) IU/L Alkaline Phosphatase (38-126) U/L Total Creatine Kinase (30-135) U/L CK-MB (CK-2) CK-MB (CK-2) Rel Index Troponin I (0.01-0.034) ng/mL NT-Pro-B Natriuret Pep (<450) pg/mL Total Protein (6.3-8.2) g/dL Albumin (3.5-5.0) g/dL Globulin (1.7-4.1) g/dL Albumin/Globulin Ratio (1.0-2.8) Procalcitonin (<0.5) ng/mL Urine Color Yellow Urine Appearance Clear Urine pH 6.0 (4.5-8.0) Ur Specific [place] <=1.005 (1.000-1.035) Urine Protein Negative (Negative) Urine Glucose (UA) Negative (Negative) g/dL Urine Ketones Negative (NEGATIVE) Urine Occult Blood Negative (Negative) Urine Nitrate Negative (Negative) Urine Bilirubin Negative (NEGATIVE) Urine Urobilinogen 0.2 (0.2) E.U./dL Ur Leukocyte Esterase Trace H (NEGATIVE) Urine RBC None seen (0-5/HPF) Urine WBC 1-5/hpf (0-5/HPF) Urine Bacteria None seen (None) Ur Culture Indicated? Specimen cultured SARS-CoV-2 (PCR) (Negative) Imaging Data Chest x-ray: Radiologist's Impression: Launch?Image [address] [address] XRay Report Signed Patient: Chana Garrido MR#: [id number] : 1935 Acct:[id number] Age/Sex: 86 / F Date of Service: 06/10/21 Loc: ED Accession Number: [id number] ?? Procedure: XR chest 1V Ordering Provider: Joni Pacheco D.O. PROCEDURE:? XR CHEST 1V ? INDICATIONS:? shortness of breath ? TECHNIQUE:? One view of the chest was acquired.? ? COMPARISON:? [facility], CR, XR CHEST 1V, 11/30/2020, 21:02. ? FINDINGS:? ? Surgical changes and devices:? Sternal wires. ? Lungs and pleura:? Mild left effusion.? Mild increased vascularity. ? Mediastinum:? Mediastinal contours appear normal.? Heart size is enlarged. ? Bones and chest wall:? No suspicious bony lesions.? Overlying soft tissues appear unremarkable.? ? IMPRESSION:? Mild left effusion with cardiomegaly and increased vascularity suggestive of edema. ? ? Dictated by: Rosemarie Meehan M.D. on 06/10/2021 at 9:25 ? ? Approved by: Rosemarie Meehan M.D. on 06/10/2021 at 9:26 ? MDM Narrative Medical decision making narrative: Multiple etiologies for patient's symptoms considered including: [Pneumonia versus atrial fibrillation versus COVID versus other Patient's symptoms improved over duration of stay with above-stated therapies. She has been seen by physical therapy and has no difficulties getting around. She has no increased work of breathing, abnormal lung sounds or pneumonia. Findings and discharge diagnosis discussed with patient/family followed by verbalization of understanding Return precautions discussed with patient/family whom verbalize understanding. Discharge Plan Departure Patient Disposition: Home Clinical Impression: Acute dyspnea, HTN (hypertension) Instructions: DI for Shortness of Breath Activity Restrictions/Additional Instructions: *You have been diagnosed with [dyspnea and hypertension. As we discussed your history and physical exam are very reassuring, there is no evidence of pneumonia or COVID. You have mild increased fluid that we would traditionally treat for a few days with a diuretic but you have a severe allergy. It is very important that you get access to the box and is holding her medication. *What to do: *Please continue to take your regular medications as directed. [ ] New medication prescriptions sent to your pharmacy: [ ] [ ] New medication written as a paper prescription [ x] No new medications given *Please follow up with your primary care provider in 2-3 days, call for an appointment. Let them know you were seen in the Emergency Department and that we ask that you be seen in follow up. We will electronically transmit a record of today's note if your PCP is in our system *If you do not have a primary care provider please contact the [facility] Resource line at [phone]. They will ask some questions about your medical history and help get you set up with a doctor in the community. *Return to Emergency Department if you should have any new, worsening or concerning symptoms, such as [fever greater than 101 F, shaking chills, worsening pain, persistent vomiting or other bothersome symptoms] Prescriptions: No Action albuterol sulfate [Proventil HFA] 90 mcg/actuation HFA aerosol inhaler 2 puff INHALATION Q6H PRN (Reason: shortness of breath or wheezing) Qty: 8 0RF (DME) Aerochamber MV Spacer See Rx Instructions .ROUTE .MEDSUPPLY Qty: 1 0RF Rx Instructions: As directed aspirin 81 mg tablet,chewable 81 mg PO DAILY 0RF ferrous sulfate 325 mg (65 mg iron) tablet 325 mg PO DAILY Qty: 60 2RF apixaban 5 mg tablet 5 mg PO BID Qty: 180 1RF gabapentin [Neurontin] 300 mg capsule 300 mg PO TID Qty: 270 0RF Hold Instructions: stopped at [facility] losartan 50 mg tablet 50 mg PO DAILY Qty: 90 1RF hydrocodone-acetaminophen 7.5-325 mg tablet 1 tab PO Q6H PRN (Reason: pain) Qty: 120 0RF nitroglycerin [Nitrostat] 0.4 mg tablet, sublingual See Rx Instructions Sublingual PRN PRN (Reason: Chest Pain) Qty: 30 0RF Rx Instructions: 1 tab under tongue every five minutes up to three times, call 911 if no relief. atorvastatin 40 mg tablet 40 mg PO BEDTIME Qty: 90 0RF metoprolol tartrate 25 mg tablet 12.5 mg PO DAILY Qty: 45 0RF pantoprazole 40 mg tablet,delayed release (DR/EC) 40 mg PO DAILY Qty: 90 0RF (DME) Handicap Parking Qty: 1 0RF Dose Instruction: As directed Rx Instructions: Patient unable to walk 200 feet without stopping to rest. Spacer: Inhaler Spacer Device 1 ea miscellaneous DIRECTED 0RF Referrals: Lizet Vázquez MD [Primary Care Provider] -
--- NOTE | 2021-06-10 08:56 | DI.RAD.S_ITS ---
PROCEDURE: XR CHEST 1V INDICATIONS: shortness of breath TECHNIQUE: One view of the chest was acquired. COMPARISON: [facility], CR, XR CHEST 1V, 11/30/2020, 21:02. FINDINGS: Surgical changes and devices: Sternal wires. Lungs and pleura: Mild left effusion. Mild increased vascularity. Mediastinum: Mediastinal contours appear normal. Heart size is enlarged. Bones and chest wall: No suspicious bony lesions. Overlying soft tissues appear unremarkable. IMPRESSION: Mild left effusion with cardiomegaly and increased vascularity suggestive of edema. Dictated by: Rosemarie Meehan M.D. on 06/10/2021 at 9:25 Approved by: Rosemarie Meehan M.D. on 06/10/2021 at 9:26
[2021-06-10 09:20] LABS: Add Manual Diff / Slide Review NO; Basophils Absolute Auto 0 /uL (0-100); Basophils Percent Auto 0.5 % (0-2); Eosinophils Absolute Auto 100 /uL (0-450); Eosinophils Percent Auto 1.1 % (2-4); Hematocrit 30.8 % (36-46); Hemoglobin 10.3 g/dL (12.0-16.0); Lymphocytes Absolute Auto 1000 /uL (1100-4500); Lymphocytes Percent Auto 13.7 % (25-40); Mean Corpuscular HGB Conc 33.3 % (30-36); Mean Corpuscular Hemoglobin 31.1 PG (26-34); Mean Corpuscular Volume 93.4 fL (80-100); Monocytes Absolute Auto 600 /uL (0-900); Monocytes Percent Auto 8.1 % (3-14); Neutrophils Absolute Auto 5400 /uL (1500-7000); Neutrophils Percent Auto 76.6 % (50-75); Platelet Count 224 X10^3/uL (150-400); Red Cell Distribution Width 14.8 % (11.6-14.8)
[2021-06-10 09:33] LABS: Lactate (Lactic Acid) 0.7 mmol/L (0.7-2.1)
[2021-06-10 09:34] LABS: Alanine Aminotransferase 20 IU/L (<35); Albumin 4.1 g/dL (3.5-5.0); Albumin Globulin Ratio 1.2 (1.0-2.8); Alkaline Phosphatase 135 U/L (38-126); Aspartate Aminotransferase 29 IU/L (14-36); BUN Creatinine Ratio 19.3 (6-22); Bilirubin Total 0.8 mg/dL (0.2-1.3); Blood Urea Nitrogen 16 mg/dL (7-17); Calcium 9.1 mg/dL (8.4-10.2); Carbon Dioxide 26 mmol/L (22-32); Chloride 106 mmol/L (98-107); Creatine Kinase 72 U/L (30-135); Estimated Glomerular Filt Rate > 60 mL/min (>60); Globulin 3.5 g/dL (1.7-4.1); Glucose 121 mg/dL (80-110); HEMOLYSIS < 15 (0-50); Potassium 4.7 mmol/L (3.4-5.1); Sodium 137 mmol/L (137-145); Total Protein 7.6 g/dL (6.3-8.2)
[2021-06-10 09:44] LABS: D Dimer 381 ng/mL (<230)
[2021-06-10 09:46] LABS: NT-proBNP (BNP-Adult 18+) 8750 pg/mL (<450); Troponin I < 0.012 ng/mL (0.01-0.034)
[2021-06-10 09:50] LABS: Procalcitonin 0.07 ng/mL (<0.5)
[2021-06-10 09:59] LABS: COVID19 -Nasal RAPID Negative (Negative)
[2021-06-10] MEDS: METOPROLOL IR 25 MG TABLET PO ×2 (11:26→21:41)
[2021-06-10 11:31] LABS: Appearance Urine UA CLEAR; Bilirubin Urine UA NEGATIVE (NEGATIVE); Color Urine UA YELLOW; Glucose Urine UA NEGATIVE (Negative); Ketones Urine UA NEGATIVE (NEGATIVE); Leukocyte Esterase Urine UA TRACE (NEGATIVE); Nitrite Urine UA NEGATIVE (Negative); Occult Blood Urine UA NEGATIVE (Negative); Protein Urine UA NEGATIVE (Negative); Specific Gravity Urine UA <=1.005 (1.000-1.035); Urobilinogen Urine UA 0.2 E.U./dL (0.2)
[2021-06-10 11:32] LABS: Bacteria Urine None Seen; Culture Indicated Urine Specimen Cultured; RBC Urine None Seen (0-5/HPF); WBC Urine 1-5/HPF (0-5/HPF)
[2021-06-10 11:41] LABS: Creatine Kinase 64 U/L (30-135)
[2021-06-10 11:54] LABS: Troponin I < 0.012 ng/mL (0.01-0.034)
[2021-06-10] MEDS: LABETALOL 20 MG/4 ML SYRINGE 10 MG IV (14:30)
--- NOTE | 2021-06-10 15:18 | PT.IIE ---
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) Asthma Breast cancer (~2001) CAD (coronary artery disease) Calcified nodule Cerebrovascular accident (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 right middle cerebral artery (04/27/17) Cervical cancer, FIGO stage I Cholelithiasis Chronic back pain Developmental disorder Diarrhea Essential hypertension (02/19/12) Failure to thrive in adult Fibrocystic breast disease GERD (gastroesophageal reflux disease) History of colon polyps (02/19/12) History of left breast cancer (~2008) Hyperlipidemia IBS (irritable bowel syndrome) Measles 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, bilateral Personal history of other malignant neoplasm of skin (02/19/12) 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 She is oriented but presents with increased confusion. Mobility and Gait Pt states she is modified independent using 4WW, SPC, or manual wheelchair. She depends on her son to propel the wheelchair. Activities of Daily Living and IADL's Pt states her son assists with bathing and dressing tasks. She reports modified independence with toileting using BSC. Pt's son assists with all IADL needs. Prior Functional Level (Other details) PMH includes R MCA CVA in 2018 , CHFrEF, CAD s/p CABG, remote breast and cervical cancer. Social History Household Members children Living Arrangements Apartment/Condo Number of Stairs To Enter/Railing? 6-8 EFREM the apartment with wide B rails. Pt states she uses one rail and her son provides [employer] on the opposite side. Home Equipment Four Wheel Walker,Straight Cane,Manual Wheelchair,Bedside Commode Additional Social History Comment Pt states she was evicted from her mobile home recently and just moved in to a room in an apartment with her son. She is unable to explain her connection to the apartment. M2 PT-IP Current Condition Start: 06/10/21 14:00 Freq: Status: Active Protocol: Document 06/10/21 15:18 AW (Rec: 06/10/21 15:56 AW [id number]) Physical Therapy Current Condition Current Condition Evaluation Date 06/10/21 Treatment Diagnosis impaired mobility and gait Onset Date 06/09/21 M3 PT-IP Subjective Start: 06/10/21 14:00 Freq: Status: Active Protocol: Document 06/10/21 15:18 AW (Rec: 06/10/21 15:56 AW [id number]) Subjective Physical Therapy Visit Type Type Initial Evaluation Visit Start Time 14:55 Visit Stop Time 15:18 Total Visit Minutes 23 Notes Pt was seen in ED at the request of the ED provider. Number of STUDIO DATA ANALYST Visits 0 Physical Therapy Visit Comments Patient Comments Pt is willing to participate with PT Therapy Pain Assessment Pain When Pain Assessed At Rest Pain Present Pain Present Pain Reported Location generalized Scale Used not quantified Pain Management Techniques Distraction,Modification of Treatment M4 PT-IP Mobility and Gait Start: 06/10/21 14:00 Freq: Status: Active Protocol: Document 06/10/21 15:18 AW (Rec: 06/10/21 15:56 AW [id number]) PT-Bed Mobility Assessment Supine to Sit Supine to Sit Standby Assistance Sit to Supine Sit to Supine Standby Assistance Scooting Scooting to Edge of Bed Standby Assistance Scooting Up and Down in Bed Standby Assistance PT-Transfer Assessment Sit to and From Stand Sit to and from Stand Minimal Assistance,1 Person Assistance,Use of Upper Extremities Equipment Transfer Assistive Device Gait Belt,Straight Cane,Front Wheeled Walker Orthotic/Prosthetic Devices or Brace: No Transfers Transfer Destination Bed Transfer Technique pt ambulated with FWW, SPC Transfer Ability Level of Assist Minimal Assistance Comments Mobility Comments Pt was lying on her right side on the ED gurney as PT arrived. BP 193/82 HR 80 SpO2 96% on room air. Pt was able to roll to her left side and transition to sitting EOB SBA to CGA for safety since pt was near the left EOB. She was impulsive and attempted to stand before PT had applied the gait belt. She was redirectable, though. Pt stood with FWW and walked 15 feet in the room min A for steadiness. Pt has excessive thoracic kyphosis but was able to stand more upright in response to cues. She sat EOB and agreed to walk again with her own SPC. Min/mod A required for 15 feet with SPC and pt constantly reached for surfaces with her other hand. Pt returned to long sitting [place] the [place] and SpO2 was 89% as pt demonstrated increased WOB. Cued pt for breathing techniques and RR recovered as well as SpO2 to 94%. BP 186/ 91 HR 70 after activity. Pt repositioned herself on the [facility] SBA. Gait Assessment Gait Gait Assistance Required: Minimum Assistance,Moderate Assistance,1 Person Assist Distance (Feet) 15 Assistive Devices Assistive Device Gait Belt,Straight Cane,Front Wheeled Walker Orthotic/Prosthetic Devices or Brace: No Gait Deviations General Gait Pattern Antalgic,Decreased Stride Length,Decreased Feet Clearance,Narrow Based Gait, Wide Based Gait Factors Limiting Gait Function Factors Limiting Gait Function Decreased Activity Tolerance, Decreased Strength,Difficulty Following Directions,Pain,Poor Balance,Poor Safety Awareness ,Respiratory Distress Comments Gait Comments Gait notable for inconsistent step lengths and foot placement, poor path maintenance, and need for constant assist. Stair Climbing Assessment Comments Stair Climbing Comments Not assessed. PT-Balance Assessment Sitting Balance and Reactions Static Sitting Balance Ability Fair Dynamic Sitting Balance Ability Fair Standing Balance and Reactions Static Standing Balance Ability Poor Dynamic Standing Balance Ability Poor Device Used FWW, SPC M5 PT-IP Objective Assessments Start: 06/10/21 14:00 Freq: Status: Active Protocol: Document 06/10/21 15:18 AW (Rec: 06/10/21 15:56 AW [id number]) Orientation Orientation/Cognition Level of Alertness Confusional State Orientation Name,Month,Year,Place, Situation Safety Awareness Decreased Safety Awareness Gross Range of Motion Lower Extremity ROM Assessment Within Functional Limits Strength Lower Extremity Strength Assessment Bilaterally Impaired Hip 3+/5 Knee 4-/5 Muscle Tone Muscle Tone WNL Yes M6 PT-IP Treatment Start: 06/10/21 14:00 Freq: Status: Active Protocol: Document 06/10/21 15:18 AW (Rec: 06/10/21 15:56 AW [id number]) Physical Therapy Treatment Education Education Provided Safety M7 PT-IP Assessment and Plan Start: 06/10/21 14:00 Freq: Status: Active Protocol: Document 06/10/21 15:18 AW (Rec: 06/10/21 15:56 AW [id number]) PT Summary Assessment and Plan Potential Rehabilitation Potential Fair Status of Condition at Evaluation Evolving Summary Impairments Pain,Strength,Balance, Cognition,Transfers,Gait, Activity Tolerance Assessment Summary Chana is an 86 yo woman seen for mobility assessment in ED with no clear admitting diagnosis. She has uncontrolled hypertension and CHF with reduced EF. She reports modified independent mobility at baseline but is a difficult historian. Past PT notes indicate pt has needed one-person assist for limited household mobility at least since the end of 2018 and often uses a wheelchair. On assessment today, pt required min to mod assist for short distance ambulation using FWW or SPC. She is likely at or near her functional baseline and would be safe to discharge home as long as she has 24/7 assist for mobility which her son typically provides. Goals Bed Mobility Goal Independent Transfer Goal Standby Assistance,Front Wheeled Walker Gait Goal Standby Assistance,Front Wheel Walker Gait Distance 75 Other Goals -- up/down 8 steps with unilateral rail min A Days to Meet Goals 10 Frequency of Treatment Frequency Of Treatment Once a Day Treatment Plan Physical Therapy Treatment Plan Bed Mobility Training,Transfer Training,Gait Training, Therapeutic Exercise,Balance Retraining,Discharge Planning, Hot or Cold Pack,Neuromuscular Re-ed Recommendations To Nursing Amount of Assist Needed 1 Person Assist Discharge Recommendations PT Discharge Recommendations Home with 24/7 Assist Available Transportation Needs at Discharge Private Vehicle
--- NOTE | 2021-06-10 16:58 | PC.NURSE ---
Pt does not know her new address and states her son's phone is not operational. Does not have the phone number to where she is staying. Called [employer] to ask where she was picked up from and if there is a phone number associated w/ that residence. They will call back.
--- NOTE | 2021-06-10 17:04 | PC.NURSE ---
Received phone call back from [employer] who gave same address as what we have in the chart (where pt got evicted from) & another phone number [phone] which is no longer in service. Tiesha LEWIS aware and will attempt to assist.
[2021-06-10] MEDS: HYDROCODONE/ACET 5/325 TABLET 1 TAB PO ×2 (17:31→21:40)
[2021-06-10] MEDS: ALBUTEROL/IPRATROPIUM 3 ML AMPUL INH (17:49)
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
--- NOTE | 2021-06-10 20:57 | PC.NURSE ---
Attempted to call house phone of x 2 w/o answer. No voicemail is set up. Also attempted to call DPOA (son) phone is not in service.
[2021-06-10] MEDS: ATORVASTATIN 20 MG TABLET 40 MG PO (21:40)
[2021-06-10] MEDS: GABAPENTIN 300 MG CAPSULE PO (21:41)
[2021-06-10] MEDS: LOSARTAN 50 MG TABLET PO (21:41)
[2021-06-10] MEDS: BACITRACIN OINT 0.9 GM PCKT 1 APPLIC TOP (22:13)
--- NOTE | 2021-06-10 22:26 | PC.NURSE ---
I received a call from law enforcement stating that pt does in fact live at the address that we were given and son was at residence and would be there to receive his mother upon arrival. Son could not come and get his mother due to a disabled vehicle and did not have a phone in order to call us. We gave her a taxi voucher and called [employer] to get her home.
--- NOTE | 2021-06-10 22:44 | PC.NURSE ---
A silver-color watch was found in room after discharge. As family is unreachable by phone, watch was labeled and given to nursing service administrator Eveline to place in safe.
== END 2021-06-10 22:25 | disposition home or self-care (01) ==
PROVIDERS: Emergency Provider Emergency Medicine; PCP Family Medicine
DX: R06.00 Dyspnea, unspecified (principal); I10 Essential (primary) hypertension; Z88.8 Allergy status to other drugs, medicaments and biological substances; Z20.822 Contact with and (suspected) exposure to COVID-19
CPT/HCPCS: 36415; 71045; 80053; 81001; 82550; 83605; 83880; 84145; 84484; 85025; 85379; 87040; 87086; 87635; 93005; 94640; 96374; 97162; 99284; 99285; C9803

== ENCOUNTER 2021-06-26 14:20 | Emergency (ER) | payer MEDICARE, OTHER, SELFPAY ==
[2021-04-08 11:00] VITALS: BMI 22.8
[2021-06-26 14:15] VITALS: BP 144/94; PULSE 66; RESP 16; TEMP 36.8; O2SAT 97
--- NOTE | 2021-06-26 14:42 | PC.NURSE ---
NOTE for RN EMERGENCY ROOM- pt son lives with her as her caregiver, he is not employed and they were not able to pay their bills. both of them are moving into her elderly friends home. perhaps an assisted or skilled living would be possible.
--- NOTE | 2021-06-26 14:59 | PC.NURSE ---
Pt's son Heath contacted and told his mother was ready to come home. He stated that he didn't have a ride to come and get her but he will arrange something. D/t Heath leaving his mother in the ER before I asked him to call as soon as he had a ride set up and he said he would. I reminded him that is was inappropriate to leave his mother here and she needed to come home.
--- NOTE | 2021-06-26 15:01 | ED.EXTPRO ---
HPI - Extremity Problem <Karla RADHA Lang - Last Filed: 06/26/21 15:07> General Chief complaint: Extremity Problem,Nontraumatic Stated complaint: Bilat knee pain Time Seen by Provider: 06/26/21 14:35 Source: patient History of Present Illness HPI Narrative: This is a 86-year-old female presents to the emergency department by ambulance for chronic knee pain which has flared since she has moved from an apartment into a trailer. Patient states that she has been moving a lot of boxes, both of her knees are more tender than usual, and she is out of her hydrocodone which she takes for chronic knee pain. Patient's primary care provider used to be Dr. Christopher dorsey, Lizet Vázquez saw the patient at her last visit and was her last hydrocodone prescriber. She denies any weakness, injuries or any other complaint at this time. Related Data Previous Rx's Medication Instructions Recorded Handicap Parking #1 ea 06/04/18 albuterol sulfate 90 mcg/actuation 2 puff INHALATION Q6H PRN #8 gram 02/22/19 aerosol inhaler (Proventil HFA) inhalational spacing device #1 each 03/24/19 (Aerochamber MV) ferrous sulfate 325 mg (65 mg 325 mg PO DAILY #60 tab 02/13/20 iron) tablet apixaban 5 mg tablet 5 mg PO BID #180 tab 08/01/20 nitroglycerin 0.4 mg sublingual See Rx Instructions SUBLINGUAL PRN 03/18/21 tablet (Nitrostat) PRN #30 tab gabapentin 300 mg capsule 300 mg PO TID #270 cap 04/10/21 (Neurontin) atorvastatin 40 mg tablet 40 mg PO BEDTIME #90 tab 05/03/21 metoprolol tartrate 25 mg tablet 12.5 mg PO DAILY #45 tab 05/03/21 pantoprazole 40 mg tablet,delayed 40 mg PO DAILY #90 tab 05/03/21 release losartan 50 mg tablet 50 mg PO DAILY #90 tab 05/15/21 hydrocodone 7.5 mg-acetaminophen 1 tab PO Q6H PRN #120 tab 06/06/21 325 mg tablet diclofenac sodium 1 % topical gel 2 g TOPICAL QID #100 g 06/26/21 hydrocodone 5 mg-acetaminophen 325 1 tab PO BID PRN #20 tab 06/26/21 mg tablet Allergies Allergy/AdvReac Type Severity Reaction Status Date / Time furosemide [FUROSEMIDE] Allergy Mild RASH Verified 06/10/21 14:05 sertraline [SERTRALINE] Allergy Mild FEELS Verified 06/10/21 14:05 DRUGGED lisinopril AdvReac Mild Cough Verified 06/10/21 14:05 Review of Systems <RADHA Rendon - Last Filed: 06/26/21 15:07> Review of Systems Narrative: General: denies fever, chills, malaise, sweats, fatigue Head/Neck: denies headache, neck pain, dizziness Eyes: denies visual changes, eye pain Cardio: denies chest pain, palpitations, edema Respiratory: denies dyspnea, cough, orthopnea GI: denies abdominal pain, nausea, vomiting, or diarrhea : denies dysuria, hematuria, urinary retention, frequency or incontinence MSK: Endorses bilateral knee joint pain, denies any sensation changes or muscle weakness Skin: denies rash, itching, skin lesions or other Neuro: denies numbness, tingling Patient History <RADHA Rendon - Last Filed: 06/26/21 15:07> Medical History Abdominal pain Acute pancreatitis Anxiety 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) Asthma Breast cancer (~2001) CAD (coronary artery disease) Calcified nodule Cerebrovascular accident (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 right middle cerebral artery (04/27/17) Cervical cancer, FIGO stage I Cholelithiasis Chronic back pain Developmental disorder Diarrhea Essential hypertension (02/19/12) Failure to thrive in adult Fibrocystic breast disease GERD (gastroesophageal reflux disease) History of colon polyps (02/19/12) History of left breast cancer (~2008) Hyperlipidemia IBS (irritable bowel syndrome) Measles 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, bilateral Personal history of other malignant neoplasm of skin (02/19/12) 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) Systolic congestive heart failure with reduced left ventricular function, NYHA class 2 (10/26/10) Surgical History Anesthesia Status post arthroscopy Status post biopsy (~2014) Status post breast lumpectomy (~2008) Status post cholecystectomy Status post coronary artery bypass graft Status post hysterectomy (~2009) Social History household members: children Smoking Status: Never smoker alcohol intake: never Smoking Status: Never smoker alcohol intake frequency: holidays/special occasions only Substance Use Type: does not use Exam <RADHA Rendon - Last Filed: 06/26/21 15:07> Narrative Exam Narrative: Independently reviewed vitals signs and nursing notes. General: cooperative, comfortable, in no acute distress, well developed and well groomed Head: atraumatic, symmetrical facial expressions Neck: supple Eyes: pupils equal round and reactive, EOMI, conjunctiva normal Nose: nares patent, no rhinorrhea Mouth/Throat: uvula midline, moist mucus membranes Cardiovascular: regular rate and rhythm, no peripheral edema, warm extremities Respiratory: normal effort, able to speak in complete sentences, no audible wheezing, stridor, or rales. No retractions or tachypnea. GI: abdomen soft, nontender to palpation, nondistended, no masses, no exquisite tenderness with exam, without guarding or rebound. MSK: moves all extremities, ambulatory w/steady gait although complains of pain while bearing weight, neurovascularly intact, no weakness, no surrounding erythema, no significant tenderness to palpation, open wound, fluctuance, or ecchymosis. Skin: brisk capillary refill, no rash, no erythema Neuro: normal speech and cognition, A&O x3, normal tone Psych: mental status is grossly normal, congruent mood, normal affect, pleasant and cooperative Initial Vital Signs Initial Vital Signs: Vital Signs Temperature 98.3 F 06/26/21 14:15 Pulse Rate 66 06/26/21 14:15 Respiratory Rate 16 06/26/21 14:15 Blood Pressure 144/94 H 06/26/21 14:15 Pulse Oximetry 97 06/26/21 14:15 <Farida Joaquin DO - Last Filed: 06/27/21 20:20> Initial Vital Signs Initial Vital Signs: Vital Signs Temperature 98.3 F 06/26/21 14:15 Pulse Rate 66 06/26/21 14:15 Respiratory Rate 16 06/26/21 14:15 Blood Pressure 144/94 H 06/26/21 14:15 Pulse Oximetry 97 06/26/21 14:15 Course <RADHA Rendon - Last Filed: 06/26/21 15:07> Orders Ordered: Discontinued Medications Hydrocodone Bitart/Acetaminophen (Hydrocodone/Acet 5/325 Tablet) 1 tab PO NOW ONE Stop: 06/26/21 14:54 Last Admin: 06/26/21 15:04 Dose: 1 tab Documented by: JUDYONER Lidocaine (Lidocaine Patch 1 Each Adh..Patch) 2 each TOP NOW ONE Stop: 06/26/21 14:54 Last Admin: 06/26/21 15:04 Dose: 2 each Documented by: BTONER Vital Signs Vital signs: Vital Signs - 8 hr 06/26/21 14:15 Temperature 98.3 F Pulse Rate 66 Respiratory Rate 16 Blood Pressure 144/94 H Pulse Oximetry 97 <Farida Joaquin DO - Last Filed: 06/27/21 20:20> Orders Ordered: Discontinued Medications Hydrocodone Bitart/Acetaminophen (Hydrocodone/Acet 5/325 Tablet) 1 tab PO NOW ONE Stop: 06/26/21 14:54 Last Admin: 06/26/21 15:04 Dose: 1 tab Documented by: BTONER Lidocaine (Lidocaine Patch 1 Each Adh..Patch) 2 each TOP NOW ONE Stop: 06/26/21 14:54 Last Admin: 06/26/21 15:04 Dose: 2 each Documented by: BTONER Vital Signs Vital signs: Vital Signs - 8 hr 06/26/21 14:15 Temperature 98.3 F Pulse Rate 66 Respiratory Rate 16 Blood Pressure 144/94 H Pulse Oximetry 97 MDM - Extremity (Nontraumatic) <RADHA Rendon - Last Filed: 06/26/21 15:07> MDM Narrative Medical decision making narrative: This is a pleasant 86-year-old female presents to the emergency department by ambulance for an acute exacerbation of chronic knee pain and requesting a medication refill of her hydrocodone. Patient states she ran out and her knee pain became worse because she has been moving from an apartment to a trailer over the last few days. Patient states that she has been moving a lot of boxes and her pain got worse. She was given a refill of hydrocodone, encouraged to follow-up with Dr. Vázquez her primary care provider who saw the patient following Dr. Tapia's long term. She is encouraged to follow-up with Dr. Vázquez was prescribed Voltaren gel and hydrocodone, encouraged to stay hydrated, and rest more often. Patient is appropriate and amenable to discharge home. She does not have any new weakness or since age changes. She is ambulatory. Vital signs are stable on repeat examination is unremarkable. Patient has been informed of results. Patient has been given strict return to ER precautions for any new or worsening symptoms. Patient understands to follow up closely with outpatient providers as instructed. Patient understands plan and agrees to discharge home. All questions and concerns answered at this time. Discharge Plan Departure Patient Disposition: Home Clinical Impression: Acute bilateral knee pain, History of osteoarthritis Instructions: DI for Knee Pain Activity Restrictions/Additional Instructions: *You have been diagnosed with knee pain from a flare of your arthritis from your increased activity. Please use ice as needed for your pain, you can take hydrocodone and use topical Voltaren gel to help with your pain. Please take a stool softener while taking medications that cause constipation like this. Please drink plenty of water, remember to rest frequently, let your son do all of the work. I hope that you start feeling better, please call and make an appointment with Dr. Vázquez for follow-up and for your ongoing health care needs. *What to do: *Please continue to take your regular medications as directed. [ x] New medication prescriptions sent to your pharmacy: [[facility] ] [ ] New medication written as a paper prescription [ ] No new medications given *Please follow up with your primary care provider in 2-3 days, call for an appointment. Let them know you were seen in the Emergency Department and that we asked that you be seen for follow-up. We will electronically transmit a record of today's note if your PCP is in our system *If you do not have a primary care provider please contact [phone] to establish care with one of the [facility] primary care providers. *Return to Emergency Department if you should have any new, worsening or concerning symptoms, such as [fever greater than 101F, chills, worsening pain, persistent vomiting or other bothersome symptoms] Prescriptions: New hydrocodone-acetaminophen 5-325 mg tablet 1 tab PO BID PRN (Reason: pain) Qty: 20 0RF diclofenac sodium 1 % gel 2 g topical QID Qty: 100 0RF Rx Instructions: apply to single elbow, wrist or hand; for hand includes palm/fingers/back of hand No Action albuterol sulfate [Proventil HFA] 90 mcg/actuation HFA aerosol inhaler 2 puff INHALATION Q6H PRN (Reason: shortness of breath or wheezing) Qty: 8 0RF (DME) Aerochamber MV Spacer See Rx Instructions .ROUTE .MEDSUPPLY Qty: 1 0RF Rx Instructions: As directed ferrous sulfate 325 mg (65 mg iron) tablet 325 mg PO DAILY Qty: 60 2RF apixaban 5 mg tablet 5 mg PO BID Qty: 180 1RF gabapentin [Neurontin] 300 mg capsule 300 mg PO TID Qty: 270 0RF Hold Instructions: stopped at [facility] losartan 50 mg tablet 50 mg PO DAILY Qty: 90 1RF hydrocodone-acetaminophen 7.5-325 mg tablet 1 tab PO Q6H PRN (Reason: pain) Qty: 120 0RF nitroglycerin [Nitrostat] 0.4 mg tablet, sublingual See Rx Instructions Sublingual PRN PRN (Reason: Chest Pain) Qty: 30 0RF Rx Instructions: 1 tab under tongue every five minutes up to three times, call 911 if no relief. atorvastatin 40 mg tablet 40 mg PO BEDTIME Qty: 90 0RF metoprolol tartrate 25 mg tablet 12.5 mg PO DAILY Qty: 45 0RF pantoprazole 40 mg tablet,delayed release (DR/EC) 40 mg PO DAILY Qty: 90 0RF (DME) Handicap Parking Qty: 1 0RF Dose Instruction: As directed Rx Instructions: Patient unable to walk 200 feet without stopping to rest. Referrals: Lizet Vázquez MD [Primary Care Provider] - <Farida Joaquin, - Last Filed: 06/27/21 20:20> Cosign ED Attending Arturoature Attestation: I was immediately available in the department for consultation. Documentation has been reviewed. I agree with assessment and plan.
[2021-06-26] MEDS: LIDOCAINE PATCH 1 EACH ADH..PATCH 2 EACH TOP (15:04)
[2021-06-26] MEDS: HYDROCODONE/ACET 5/325 TABLET 1 TAB PO (15:04)
--- NOTE | 2021-06-26 17:27 | PC.NURSE ---
Patient walked to bathroom with walker independently. States pain in knees is much improved.
--- NOTE | 2021-06-26 17:46 | PC.NURSE ---
pt son said he we come around 1600, we called back around 1645, he said to just use our cab like last time, i explained we dont have a cab or ambulance system. he said to get the cab, i asked will he be there to pay for it, Eduar, her son said he pay for it. i clarified and he said yes he would pay for it. Juan Carlos's said yes to taking her to [id number] [facility] [address] Fer shaw. -btoner.
[2021-06-26 17:50] VITALS: BP 154/74; PULSE 63; RESP 18; O2SAT 100
== END 2021-06-26 17:50 | disposition home or self-care (01) ==
LOC: ED 15:11
PROVIDERS: Emergency Provider Nurse Practitioner Critical Care Medicine; PCP Family Medicine
DX: G89.29 Other chronic pain (principal); M25.562 Pain in left knee; M25.561 Pain in right knee; Z87.39 Personal history of other diseases of the musculoskeletal system and connective tissue
CPT/HCPCS: 99283

== ENCOUNTER 2021-07-06 20:25 | Emergency (ER) | payer MEDICARE, OTHER, SELFPAY ==
[2021-04-08 11:00] VITALS: BMI 22.8
[2021-07-06] VITALS (11 sets, daily range): BP systolic 186–220; BP diastolic 85–135; PULSE 65–75; RESP 18; TEMP 36.4; O2SAT 96–98; BMI 21.4
--- NOTE | 2021-07-06 20:38 | DI.RAD.S_ITS ---
PROCEDURE: XR CHEST 1V INDICATIONS: weak, achy all over TECHNIQUE: One view of the chest was acquired. COMPARISON: [facility], CR, XR CHEST 1V, 10/29/2020, 19:26. [facility], CR, XR CHEST 1V, 11/30/2020, 21:02. [facility], CR, XR CHEST 1V, 06/10/2021, 9:09. FINDINGS: Surgical changes and devices: Post CABG changes are seen. Left axillary clips on left chest wall clips are also seen. Lungs and pleura: Lungs are clear. No pleural effusions or pneumothorax can be seen. However, the left costophrenic angle is obscured by the patient's overlying hand. Previously, there was seen a small pleural effusion at this site. Mediastinum: The cardiac contours are within normal limits. The aorta demonstrates calcification and tortuosity. Bones and chest wall: No suspicious bony lesions. Age-appropriate bony degenerative changes are seen. Overlying soft tissues appear unremarkable. IMPRESSION: Limited study, without demonstration of focal infiltrates. Evaluation for left-sided pleural effusion is limited by the patient's overlying hand. This patient was previously demonstrated have a small left-sided pleural effusion. Postoperative and degenerative changes are seen. If there is clinical concern for a developing pulmonary process, a short-term followup chest series (with PA and lateral views, performed in deep inspiration) is suggested for further evaluation. Dictated by: Felix Lomeli M.D. on 07/06/2021 at 20:19 Approved by: Felix Lomeli M.D. on 07/06/2021 at 20:21
[2021-07-06 21:13] LABS: Add Manual Diff / Slide Review NO; Basophils Absolute Auto 0 /uL (0-100); Basophils Percent Auto 0.9 % (0-2); Eosinophils Absolute Auto 0 /uL (0-450); Eosinophils Percent Auto 0.9 % (2-4); Hematocrit 39.9 % (36-46); Lymphocytes Absolute Auto 1500 /uL (1100-4500); Lymphocytes Percent Auto 28.4 % (25-40); Mean Corpuscular HGB Conc 32.7 % (30-36); Mean Corpuscular Hemoglobin 30.1 PG (26-34); Mean Corpuscular Volume 92.1 fL (80-100); Monocytes Absolute Auto 400 /uL (0-900); Monocytes Percent Auto 8.4 % (3-14); Neutrophils Absolute Auto 3300 /uL (1500-7000); Neutrophils Percent Auto 61.4 % (50-75); Platelet Count 228 X10^3/uL (150-400); Red Blood Cell Count 4.33 X10^6/uL (4.0-5.2); Red Cell Distribution Width 14.2 % (11.6-14.8); White Blood Cell Count 5.3 X10^3/uL (4.5-11.0)
[2021-07-06] MEDS: SODIUM CHLORIDE 0.9% 500 ML 1000 ML IV (21:16)
[2021-07-06 21:18] LABS: Alanine Aminotransferase 13 IU/L (<35); Albumin 4.2 g/dL (3.5-5.0); Albumin Globulin Ratio 1.2 (1.0-2.8); Alkaline Phosphatase 138 U/L (38-126); Aspartate Aminotransferase 24 IU/L (14-36); Bilirubin Total 1.1 mg/dL (0.2-1.3); Blood Urea Nitrogen 22 mg/dL (7-17); Calcium 9.2 mg/dL (8.4-10.2); Carbon Dioxide 25 mmol/L (22-32); Chloride 101 mmol/L (98-107); Creatine Kinase < 20 U/L (30-135); Estimated Glomerular Filt Rate 52 mL/min (>60); Globulin 3.5 g/dL (1.7-4.1); Glucose 88 mg/dL (80-110); HEMOLYSIS < 15 (0-50); Lipase 209 U/L (23-300); Magnesium 1.9 mg/dL (1.6-2.3); Potassium 4.4 mmol/L (3.4-5.1); Sodium 136 mmol/L (137-145); Total Protein 7.7 g/dL (6.3-8.2)
[2021-07-06] MEDS: ACETAMINOPHEN 325 MG TABLET 650 MG PO (21:19)
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
[2021-07-06 21:29] LABS: NT-proBNP (BNP-Adult 18+) 4040 pg/mL (<450); Troponin I < 0.012 ng/mL (0.01-0.034)
[2021-07-06 22:09] LABS: Adenovirus Not Detected (Not Detect); B. parapertussis Not Detected (Not Detecte); Bordetella pertussis Not Detected (Not Detecte); Chlamydophila pneumoniae Not Detected (Not Detect); Coronavirus 229E Not Detected (Not Detect); Coronavirus HKU1 Not Detected (Not Detect); Coronavirus NL 63 Not Detected (Not Detect); Coronavirus OC43 Not Detected (Not Detect); Human Metapneumovirus Not Detected (Not Detect); Human Rhinovirus/Enterovirus Not Detected (Not Detect); Influenza A Not Detected (Not Detect); Influenza B Not Detected (Not Detect); Mycoplasma pneumoniae Not Detected (Not Detect); Parainfluenza Virus 1 Not Detected (Not Detect); Parainfluenza Virus 2 Not Detected (Not Detect); Parainfluenza Virus 3 Not Detected (Not Detect); Parainfluenza Virus 4 Not Detected (Not Detect); Respiratory Syncytial Virus Not Detected (Not Detect); SARS- CoV-2 Not Detected (Not Detecte)
[2021-07-07] VITALS (7 sets, daily range): BP systolic 174–220; BP diastolic 79–107; PULSE 55–63; O2SAT 97–98
[2021-07-07] MEDS: LOSARTAN 50 MG TABLET PO (01:23)
--- NOTE | 2021-07-07 03:07 | PC.NURSE ---
Pt assisted to bathroom with heavy one assist. Pt was wearing an old pull up that was on sideways. Pt cleaned well after urinating and a new pull up was put on
[2021-07-07 03:10] LABS: Appearance Urine UA CLEAR; Bilirubin Urine UA NEGATIVE (NEGATIVE); Color Urine UA YELLOW; Glucose Urine UA NEGATIVE (Negative); Ketones Urine UA TRACE (NEGATIVE); Leukocyte Esterase Urine UA TRACE (NEGATIVE); Nitrite Urine UA NEGATIVE (Negative); Occult Blood Urine UA NEGATIVE (Negative); Protein Urine UA NEGATIVE (Negative); Urobilinogen Urine UA 0.2 E.U./dL (0.2)
[2021-07-07 03:14] LABS: Bacteria Urine None Seen; Culture Indicated Urine Specimen Cultured; RBC Urine None Seen (0-5/HPF); Squamous Epithelial Cell Urine 0-1 /HPF (0-5/HPF); WBC Urine 0-1/HPF (0-5/HPF)
--- NOTE | 2021-07-07 08:16 | PC.NURSE ---
Patient ambulated to bathroom and back with walker. Patient not oriented to time. States it is 2001. Asked her what month it is, she states 2001. Patient back into bed and awaiting BLS transport.
[2021-07-07] MEDS: ACETAMINOPHEN 325 MG TABLET 975 MG PO (09:38)
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
== END 2021-07-07 09:45 | disposition home or self-care (01) ==
PROVIDERS: Emergency Medicine; Emergency Provider Emergency Medicine; PCP Family Medicine
DX: R53.1 Weakness (principal); R52 Pain, unspecified; Z20.822 Contact with and (suspected) exposure to COVID-19
CPT/HCPCS: 36415; 71045; 80053; 81001; 82550; 83690; 83735; 83880; 84484; 85025; 87086; 87633; 93005; 93010; 99284

== ENCOUNTER 2021-07-09 18:06 | Inpatient (IN) | payer MEDICARE, OTHER, SELFPAY ==
[2021-04-08 11:00] VITALS: BMI 22.8
[2021-07-09] VITALS (12 sets, daily range): BP systolic 159–203; BP diastolic 81–146; PULSE 71–90; RESP 12–35; TEMP 36.3–36.6; O2SAT 86–99; BMI 20.2
--- NOTE | 2021-07-09 18:23 | ED_ITS ---
HPI - Altered Mental Status General Chief Complaint: Altered Mental Status Stated Complaint: Decreased LOC Time Seen by Provider: 07/09/21 18:08 History of Present Illness HPI narrative: 86-year-old female nonsmoker with history of chronic pain, AFib on anticoagulation, CHF, prior stroke presents for evaluation of altered mental status. Per report from medics she was in her normal state of health until just prior to there call in which she was on the toilet and became unresponsive. Her vitals had been relatively stable, blood glucose 107, she did respond to painful stimuli with attempts at IV placement en route. She is a full code. She is awake but sleepy and denies any headache, blurred vision or trouble with speech. She says she has some pain in her left posterior shoulder that seemed to be worse when she moves and improves with rest. She states that she was feeling f ine and then when on the toilet and does not know what happened. She states she feels weak and is having trouble breathing and complains of abdominal pain. Additionally, she has had trouble controlling her urine and states it feels ?funny?. She has been here frequently as of late and has little to no support at home and is reported to be squatting at a home on [address]. She states she has been able to access food but apparently has no running water. She states she has been taking her medications as directed as far she can recall Related Data Previous Rx's Medication Instructions Recorded Handicap Parking #1 ea 06/04/18 albuterol sulfate 90 mcg/actuation 2 puff INHALATION Q6H PRN #8 gram 02/22/19 aerosol inhaler (Proventil HFA) inhalational spacing device #1 each 03/24/19 (Aerochamber MV) ferrous sulfate 325 mg (65 mg 325 mg PO DAILY #60 tab 02/13/20 iron) tablet apixaban 5 mg tablet 5 mg PO BID #180 tab 08/01/20 nitroglycerin 0.4 mg sublingual See Rx Instructions SUBLINGUAL PRN 03/18/21 tablet (Nitrostat) PRN #30 tab gabapentin 300 mg capsule 300 mg PO TID #270 cap 04/10/21 (Neurontin) atorvastatin 40 mg tablet 40 mg PO BEDTIME #90 tab 05/03/21 metoprolol tartrate 25 mg tablet 12.5 mg PO DAILY #45 tab 05/03/21 hydrocodone 7.5 mg-acetaminophen 1 tab PO Q6H PRN #120 tab 06/06/21 325 mg tablet diclofenac sodium 1 % topical gel 2 g TOPICAL QID #100 g 06/26/21 hydrocodone 5 mg-acetaminophen 325 1 tab PO BID PRN #20 tab 06/26/21 mg tablet losartan 50 mg tablet 50 mg PO DAILY #90 tab 07/02/21 pantoprazole 40 mg tablet,delayed 40 mg PO DAILY #90 tab 07/02/21 release Allergies Allergy/AdvReac Type Severity Reaction Status Date / Time furosemide [FUROSEMIDE] Allergy Mild RASH Verified 07/09/21 18:19 sertraline [SERTRALINE] Allergy Mild FEELS Verified 07/09/21 18:19 DRUGGED lisinopril AdvReac Mild Cough Verified 07/09/21 18:19 Review of Systems Review of Systems Narrative: GENERAL: See HPI HEENT: Denies sinus pain, ear pain, sore throat, difficulty swallowing, dizziness. RESPIRATORY: See HPI CARDIOVASCULAR: See HPI GASTROINTESTINAL: See HPI : See HPI MUSCULOSKELETAL: denies weakness, joint pain, or bony pain SKIN: Denies rash, skin lesions, or other NEUROLOGIC: Denies weakness, headache, numbness, change in speech, confusion, seizures, incoordination. PSYCHIATRIC: No concerning psychosocial issues. 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) Asthma Breast cancer (~2001) CAD (coronary artery disease) Calcified nodule Cerebrovascular accident (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 right middle cerebral artery (04/27/17) Cervical cancer, FIGO stage I Cholelithiasis Chronic back pain Developmental disorder Diarrhea Essential hypertension (02/19/12) Failure to thrive in adult Fibrocystic breast disease GERD (gastroesophageal reflux disease) History of colon polyps (02/19/12) History of left breast cancer (~2008) Hyperlipidemia IBS (irritable bowel syndrome) Measles 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, bilateral Personal history of other malignant neoplasm of skin (02/19/12) 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) Systolic congestive heart failure with reduced left ventricular function, NYHA class 2 (10/26/10) Surgical History Anesthesia Status post arthroscopy Status post biopsy (~2014) Status post breast lumpectomy (~2008) Status post cholecystectomy Status post coronary artery bypass graft Status post hysterectomy (~2009) Social History household members: children Smoking Status: Never smoker alcohol intake: never Smoking Status: Never smoker alcohol intake frequency: holidays/special occasions only Substance Use Type: does not use Exam Narrative Exam Narrative: GENERAL: [86] year old patient appears older than stated age. Chronically ill, but visibly in much worse shape than normal. HEAD: Atraumatic. Normocephalic. EYES: Pupils equal round and reactive. Extraocular motions intact. No scleral icterus. No injection or drainage. ENT: Dry mucous membranes Nose without bleeding, purulent drainage. Throat without erythema, tonsillar hypertrophy or exudate. Airway patent. NECK: Trachea midline. Non tender CARDIOVASCULAR: Regular rate but abnormal rhythm rhythm without murmurs, gallops, or rubs. RESPIRATORY: Decreased breath sounds bilaterally with prolonged expiratory p hase GASTROINTESTINAL: Abdomen soft, mild generalized tenderness, nondistended. EXTREMITIES: No edema or joint tenderness. BACK: Nontender without deformity or crepitance. No flank tenderness. NEURO: AOx3. SKIN: Poor skin turgor No rash or erythema of visible areas Initial Vital Signs Initial Vital Signs: Vital Signs Temperature 97.8 F 07/09/21 18:19 Pulse Rate 80 07/09/21 18:19 Respiratory Rate 18 07/09/21 18:19 Blood Pressure 159/87 H 07/09/21 18:19 Pulse Oximetry 99 07/09/21 18:19 Course Orders Ordered: ED Orders 07/09/21 19:08 Acetaminophen Stat Blood Culture Stat Complete Blood Count AUTO DIFF Stat Comprehensive Metabolic Panel Stat Ethanol (ETOH) Stat Lactate (Lactic Acid) Stat Procalcitonin Stat Prolactin Stat Salicylate Stat Thyroid Stimulating Hormone Stat Troponin & CK Cardiac Panel Stat 07/09/21 19:28 Respiratory Panel (Film Array) Stat 07/09/21 20:18 CT chest abd pel w con Stat CT head/brain wo con Stat Acetaminophen (Acetaminophen 325 Mg Tablet) 650 mg PO Q6HR PRN PRN Reason: Fever/Mild Pain (1-3) Gabapentin (Gabapentin 100 Mg Capsule) 100 mg PO Q8HR MARKIE Sodium Chloride (Normal Saline 0.9%) 1,000 mls @ 100 mls/hr IV CONT MARKIE Naloxone HCl (Naloxone 0.4 Mg/Ml Vial) 0.2 mg IV Q2MIN PRN PRN Reason: Opiate Reversal Ondansetron HCl (Ondansetron 4 Mg Odt) 4 mg PO Q8HR PRN PRN Reason: Nausea And Vomiting Tramadol HCl (Tramadol 50 Mg Tablet) 50 mg PO Q4H PRN PRN Reason: Pain, Moderate (4-6) Discontinued Medications Sodium Chloride (Normal Saline 0.9%) 1,000 mls @ 150 mls/hr IV CONT MARKIE Stop: 07/10/21 01:53 Last Admin: 07/09/21 19:15 Dose: 150 mls/hr Documented by: LORI Ondansetron HCl (Ondansetron 4 Mg/2 Ml Inj) 4 mg IV NOW ONE Stop: 07/09/21 20:05 Last Admin: 07/09/21 20:14 Dose: 4 mg Documented by: [email or web address] Pantoprazole Sodium (Pantoprazole 40 Mg Vial) 40 mg IV NOW ONE Stop: 07/09/21 20:05 Last Admin: 07/09/21 20:14 Dose: 40 mg Documented by: [email or web address] Vital Signs Vital signs: Vital Signs - 8 hr 07/09/21 20:00 07/09/21 20:15 07/09/21 20:42 Pulse Rate 83 86 87 Respiratory Rate 17 19 35 H Blood Pressure 178/146 H 159/87 H Pulse Oximetry 91 95 94 07/09/21 21:00 07/09/21 21:30 Pulse Rate 86 88 Respiratory Rate 20 19 Blood Pressure Pulse Oximetry 91 86 L MDM - Altered Mental Status Lab Data Result diagrams: 07/09/21 19:08 07/09/21 19:08 Labs: Lab Results 07/09/21 07/09/21 07/09/21 Range/Units 19:08 19:08 19:08 WBC 7.2 (4.5-11.0) X10^3/uL RBC 4.69 (4.0-5.2) X10^6/uL Hgb 14.3 (12.0-16.0) g/dL Hct 43.2 (36-46) % MCV 92.0 (80-100) fL MCH 30.5 (26-34) PG MCHC 33.1 (30-36) % RDW 14.4 (11.6-14.8) % Plt Count 226 (150-400) X10^3/uL Neut % (Auto) 71.0 (50-75) % Lymph % (Auto) 19.7 L (25-40) % Howell % (Auto) 7.1 (3-14) % Eos % (Auto) 1.0 L (2-4) % Baso % (Auto) 1.2 (0-2) % Neut # (Auto) 5100 (7977-3977) /uL Lymph # (Auto) 1400 (4775-4218) /uL Howell # (Auto) 500 (0-900) /uL Eos # (Auto) 100 (0-450) /uL Baso # (Auto) 100 (0-100) /uL Sodium 140 (137-145) mmol/L Potassium 4.2 (3.4-5.1) mmol/L Chloride 102 (98-107) mmol/L Carbon Dioxide 27 (22-32) mmol/L BUN 24 H (7-17) mg/dL Creatinine 1.06 H (0.52-1.04) mg/dL Estimated GFR 52 L (>60) mL/min BUN/Creatinine Ratio 22.6 H (6-22) Glucose 96 (80-110) mg/dL Lactate 1.2 (0.7-2.1) mmol/L Calcium 9.8 (8.4-10.2) mg/dL Total Bilirubin 0.8 (0.2-1.3) mg/dL AST 25 (14-36) IU/L ALT 12 (<35) IU/L Alkaline Phosphatase 146 H (38-126) U/L Total Creatine Kinase < 20 L (30-135) U/L CK-MB (CK-2) TNP CK-MB (CK-2) Rel Index TNP Troponin I < 0.012 (0.01-0.034) ng/mL Total Protein 8.2 (6.3-8.2) g/dL Albumin 4.4 (3.5-5.0) g/dL Globulin 3.8 (1.7-4.1) g/dL Albumin/Globulin Ratio 1.2 (1.0-2.8) Procalcitonin 0.10 (<0.5) ng/mL TSH (0.47-4.68) uIU/mL Prolactin 34.9 H (3.0-18.6) ng/mL Salicylates < 1.0 (<20) mg/dL Acetaminophen < 10 (10-30) ug/mL Ethyl Alcohol < 10 ( - 10) mg/dL Chlamy pneumoniae PCR (Not Detect) Adenovirus (PCR) (Not Detect) B. pertussis DNA (PCR) (Not Detecte) B.parapertussis DNA PCR (Not Detecte) Coronavirus OC43 (PCR) (Not Detect) Coronavirus HKU1 (PCR) (Not Detect) Coronavirus 229E (PCR) (Not Detect) SARS-CoV-2 (PCR) (Not Detecte) Coronavirus NL63 (PCR) (Not Detect) Human Metapneumovir PCR (Not Detect) Influenza Type A (PCR) (Not Detect) Influenza Type B (PCR) (Not Detect) M. pneumoniae (PCR) (Not Detect) Parainfluenza 1 (PCR) (Not Detect) Parainfluenza 2 (PCR) (Not Detect) Parainfluenza 3 (PCR) (Not Detect) Parainfluenza 4 (PCR) (Not Detect) RSV (PCR) (Not Detect) Entero/Rhino (PCR) (Not Detect) 07/09/21 07/09/21 Range/Units 19:08 19:28 WBC (4.5-11.0) X10^3/uL RBC (4.0-5.2) X10^6/uL Hgb (12.0-16.0) g/dL Hct (36-46) % MCV (80-100) fL MCH (26-34) PG MCHC (30-36) % RDW (11.6-14.8) % Plt Count (150-400) X10^3/uL Neut % (Auto) (50-75) % Lymph % (Auto) (25-40) % Howell % (Auto) (3-14) % Eos % (Auto) (2-4) % Baso % (Auto) (0-2) % Neut # (Auto) (9230-3710) /uL Lymph # (Auto) (6442-8694) /uL Howell # (Auto) (0-900) /uL Eos # (Auto) (0-450) /uL Baso # (Auto) (0-100) /uL Sodium (137-145) mmol/L Potassium (3.4-5.1) mmol/L Chloride (98-107) mmol/L Carbon Dioxide (22-32) mmol/L BUN (7-17) mg/dL Creatinine (0.52-1.04) mg/dL Estimated GFR (>60) mL/min BUN/Creatinine Ratio (6-22) Glucose (80-110) mg/dL Lactate (0.7-2.1) mmol/L Calcium (8.4-10.2) mg/dL Total Bilirubin (0.2-1.3) mg/dL AST (14-36) IU/L ALT (<35) IU/L Alkaline Phosphatase (38-126) U/L Total Creatine Kinase (30-135) U/L CK-MB (CK-2) CK-MB (CK-2) Rel Index Troponin I (0.01-0.034) ng/mL Total Protein (6.3-8.2) g/dL Albumin (3.5-5.0) g/dL Globulin (1.7-4.1) g/dL Albumin/Globulin Ratio (1.0-2.8) Procalcitonin (<0.5) ng/mL TSH 3.05 (0.47-4.68) uIU/mL Prolactin (3.0-18.6) ng/mL Salicylates (<20) mg/dL Acetaminophen (10-30) ug/mL Ethyl Alcohol ( - 10) mg/dL Chlamy pneumoniae PCR Not detected (Not Detect) Adenovirus (PCR) Not detected (Not Detect) B. pertussis DNA (PCR) Not detected (Not Detecte) B.parapertussis DNA PCR Not detected (Not Detecte) Coronavirus OC43 (PCR) Not detected (Not Detect) Coronavirus HKU1 (PCR) Not detected (Not Detect) Coronavirus 229E (PCR) Not detected (Not Detect) SARS-CoV-2 (PCR) Not detected (Not Detecte) Coronavirus NL63 (PCR) Not detected (Not Detect) Human Metapneumovir PCR Not detected (Not Detect) Influenza Type A (PCR) Not detected (Not Detect) Influenza Type B (PCR) Not detected (Not Detect) M. pneumoniae (PCR) Not detected (Not Detect) Parainfluenza 1 (PCR) Not detected (Not Detect) Parainfluenza 2 (PCR) Not detected (Not Detect) Parainfluenza 3 (PCR) Not detected (Not Detect) Parainfluenza 4 (PCR) Not detected (Not Detect) RSV (PCR) Not detected (Not Detect) Entero/Rhino (PCR) Not detected (Not Detect) Imaging Data CT scan - head: Radiologist's Impression: Chart Viewer Diagnostics Subcategory All Activity ??:?? All Time ??:?? All Subcategories Filter Laboratory Imaging Microbiology Pathology Blood Bank Tests Cardiovascular Other Specialty DATE TYPE STATUS REF RANGE/AUTHOR Hx 07/09/21 20:[address] Signed Cirilo Farrell 07/09/21 20:18 Chest/Abdomen/Pelvis CT Signed Cirilo Farrell 07/06/21 20:38 Chest X-Ray Signed Felix Lomeli 06/10/21 08:56 Chest X-Ray Signed Rosemarie Meehan 06/10/21 08:47 Telemetry Strips ? 11/30/20 20:56 Abdomen/Pelvis CT Signed Jay Hernadez 11/30/20 20:44 Chest X-Ray Signed Jay Hernadez 11/30/20 16:08 Telemetry Strips ? 10/29/20 19:22 Chest X-Ray Signed Holden Cruz 08/17/20 16:00 Abdomen/Pelvis CTA Signed Rosemarie Meehan 08/17/20 13:33 Telemetry Strips ? 08/17/20 10:[address] Signed Garo Gallegos 08/17/20 10:33 Chest X-Ray Signed Kristel Salinas 08/17/20 10:33 Abdomen/Pelvis CT Signed Garo Gallegos 04/07/20 11:23 Abdomen/Pelvis CT Signed Felix Lomeli 04/18/19 16:45 Abdomen/Pelvis CT Signed Yossi Daigle 02/13/19 13:40 Abdomen/Pelvis CT Signed Felix Lomeli 01/12/19 08:30 Modified Barium Swallow Signed Anival Turner 01/11/19 09:52 Abdomen/Pelvis CT Signed Emi Leon 01/10/19 05:59 Chest X-Ray Signed Kristel Salinas 01/09/19 10:58 Chest X-Ray Signed Rosemarie Meehan 01/07/19 15:[address] Signed Eh Martinez 01/07/19 08:47 Echocardiogram Ultrasound Signed Natan Plascencia 01/06/19 13:30 Chest X-Ray Signed Eh Martinez 01/06/19 12:00 Chest X-Ray Signed Anival Turner 01/01/19 13:30 Shoulder X-Ray Signed Chris Aparicio 01/01/19 13:30 Elbow X-Ray Signed Chris Aparicio 01/01/19 13:17 Chest X-Ray Signed Chris Aparicio 12/03/17 16:[address] Signed Eh Martinez 12/03/17 16:01 Chest X-Ray Signed Chris Aparicio Catherine S ED 86, F?1935 MRN#? [id number] ADM ANDRE,?Main ED??? 170.18cm 58.5kg BMI: 20.2kg/m? Acc#? [id number] Full Code Special Indicators No Data to Display Home Meds Not Confirmed Prescription Monitoring Program Total 40 MME/Day Unconfirmed MEDICATIONS (INSTRUCTIONS) LAST TAKEN Active ??albuterol sulfate 90 mcg/actuation aerosol inhaler ??2 [id number]#8 gram ??apixaban 5 mg tablet ??5 mgPOBID#180 tab ??atorvastatin 40 mg tablet ??40 mgPOBEDTIME#90 tab ??diclofenac sodium ??2 gTOPICALQID#100 g ??ferrous sulfate 325 mg (65 mg iron) tablet ??325 mgPODAILY#60 tab ??gabapentin 300 mg capsule ??300 mgPOTID#270 cap ??hydrocodone 7.5 mg-acetaminophen 325 mg tablet ??1 [id number]#120 tab 30 MME/Day ??hydrocodone-acetaminophen ??1 tabPOBIDPRN#20 tab 10 MME/Day ??losartan 50 mg tablet ??50 mgPODAILY#90 tab ??metoprolol tartrate 25 mg tablet ??12.5 mgPODAILY#45 tab ??nitroglycerin 0.4 mg sublingual tablet ??See Rx InstructionsSUBLINGUALPRNPRN#30 tab ??pantoprazole 40 mg tablet,delayed release ??40 mgPODAILY#90 tab DME/Medical Supplies ??Handicap Parking ??inhalational spacing device ?Not Included in Conflicts Allergies furosemide (FUROSEMIDE) RASH sertraline (SERTRALINE) FEELS DRUGGED lisinopril Cough Problems ? 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 Diagnostics Reports Chana Garrido??86??F??1935 ? Allergy/Adv: furosemide, sertraline, lisinopril (More??) Close Head CT (Signed) Cirilo Farrell - 07/09/21 Chest/Abdomen/Pelvis CT (Signed) Criilo Farrell - 07/09/21 Chest X-Ray (Signed) Felix Lomeli - 07/06/21 Chest X-Ray (Signed) Rosemarie Meehan - 06/10/21 Telemetry Strips 06/10/21 Abdomen/Pelvis CT (Signed) Jay Hernadez - 11/30/20 Chest X-Ray (Signed) MaricarmenKeesha mccollumedda - 11/30/20 Telemetry Strips 11/30/20 Chest X-Ray (Signed) Holden Cruz - 10/29/20 Abdomen/Pelvis CTA (Signed) Rosemarie Meehan - 08/17/20 Telemetry Strips 08/17/[address] (Signed) Garo Gallegos - 08/17/20 Chest X-Ray (Signed) Kristel Salinas - 08/17/20 Abdomen/Pelvis CT (Signed) Garo Gallegos - 08/17/20 Abdomen/Pelvis CT (Signed) Felix Lomeli - 04/07/20 Abdomen/Pelvis CT (Signed) Yossi Daigle - 04/18/19 Abdomen/Pelvis CT (Signed) Felix Lomeli - 02/13/19 Modified Barium Swallow (Signed) Anival Turner - 01/12/19 Abdomen/Pelvis CT (Signed) Emi Leon - 01/11/19 Chest X-Ray (Signed) Kristel Salinas - 01/10/19 Chest X-Ray (Signed) Rosemarie Meehan - 01/09/[address] (Signed) Eh Martinez - 01/07/19 Echocardiogram Ultrasound (Signed) Natan Plascencia - 01/07/19 Chest X-Ray (Signed) Eh Martinez - 01/06/19 Chest X-Ray (Signed) Anival Turner - 01/06/19 Shoulder X-Ray (Signed) Chris Aparicio - 01/01/19 Elbow X-Ray (Signed) Chris Aparicio - 01/01/19 Chest X-Ray (Signed) Chris Aparicio - 01/01/[address] (Signed) Eh Martinez - 12/03/17 Chest X-Ray (Signed) Chris Aparicio - 12/03/[address] [address] [address] Scan Report Signed Patient: Chana Garrido MR#: [id number] : 1935 Acct:[id number] Age/Sex: 86 / F Date of Service: 07/09/21 Loc: ED Accession Number: [id number] ?? Procedure: CT head/brain wo con Ordering Provider: Joni Pacheco D.O. PROCEDURE:? CT HEAD/BRAIN WO CON ? INDICATIONS:? altered, on thinners, unresponsive ? TECHNIQUE:? Noncontrast 4.5 mm thick angled axial sections acquired from the foramen magnum to the vertex, with coronal and sagittal reformats.? For radiation dose reduction, the following was used:? automated exposure control, adjustment of mA and/or kV according to patient size.? ? COMPARISON:? Located Within [facility], CT, CT HEAD/BRAIN WO CON, 08/17/2020, 11:12. ? FINDINGS:? Image quality:? Excellent.? ? CSF spaces:? Basal cisterns are patent.? No extra-axial fluid collections.? T here is mild ex vacuole dilatation of the right lateral ventricle secondary to right parietal and temporal lobe encephalomalacia.? ? Brain:? No intracranial hemorrhage, mass, or mass effect.? A large region of cortical and subcortical encephalomalacia is redemonstrated within the right parietal and temporal lobes consistent with sequelae of a prior infarct.? There are subcortical, periventricular and deep white matter hypodensities consistent with moderate chronic small vessel ischemic changes.? .? ? Skull and face:? Calvarium and visualized facial bones appear intact, without suspicious lesions.? ? Sinuses:? Visualized sinuses and mastoids are clear.? ? IMPRESSION:? ? 1.? No acute intracranial hemorrhage or mass effect. ? 2. Large region of cortical and subcortical encephalomalacia in the right parietal and temporal lobes redemonstrated consistent with sequelae of a prior infarct in the right MCA territory.? The distribution appears similar to the prior study but it there is clinical suspicion for and acute on chronic infarct, further evaluation may be obtained with MRI. ? 3. Moderate chronic white matter small vessel ischemic changes.? ? Dictated by: Cirilo Farrell M.D. on 07/09/2021 at 20:55 ? ? Approved by: Cirilo Farrell M.D. on 07/09/2021 at 21:15 ? CT scan - chest: Radiologist's Impression: Chana Garrido??86??F??1935 ? Allergy/Adv: furosemide, sertraline, lisinopril (More??) Close Head CT (Signed) Cirilo Farrell - 07/09/21 Chest/Abdomen/Pelvis CT (Signed) FarrellCirilo - 07/09/21 Chest X-Ray (Signed) Felix Lomeli - 07/06/21 Chest X-Ray (Signed) Rosemarie Meehan - 06/10/21 Telemetry Strips 06/10/21 Abdomen/Pelvis CT (Signed) Jay Hernadez - 11/30/20 Chest X-Ray (Signed) Jay Hernadez - 11/30/20 Telemetry Strips 11/30/20 Chest X-Ray (Signed) Holden Cruz - 10/29/20 Abdomen/Pelvis CTA (Signed) Rosemarie Meehan - 08/17/20 Telemetry Strips 08/17/[address] (Signed) Garo Gallegos - 08/17/20 Chest X-Ray (Signed) Kristel Salinas - 08/17/20 Abdomen/Pelvis CT (Signed) Gallegos,Garo - 08/17/20 Abdomen/Pelvis CT (Signed) Felix Lomeli - 04/07/20 Abdomen/Pelvis CT (Signed) Yossi Daigle - 04/18/19 Abdomen/Pelvis CT (Signed) Felix Lomeli - 02/13/19 Modified Barium Swallow (Signed) Anival Turner - 01/12/19 Abdomen/Pelvis CT (Signed) Emi Leon - 01/11/19 Chest X-Ray (Signed) Kristel Salinas - 01/10/19 Chest X-Ray (Signed) Rosemarie Meehan - 01/09/[address] (Signed) Eh Martinez - 01/07/19 Echocardiogram Ultrasound (Signed) Natan Plascencia - 01/07/19 Chest X-Ray (Signed) Eh Martinez - 01/06/19 Chest X-Ray (Signed) Anival Turner - 01/06/19 Shoulder X-Ray (Signed) Chris Aparicio - 01/01/19 Elbow X-Ray (Signed) Chris Aparicio - 01/01/19 Chest X-Ray (Signed) hCris Aparicio - 01/01/[address] (Signed) Eh Martinez - 12/03/17 Chest X-Ray (Signed) Chris Aparicio - 12/03/[address] [place] [address] CT Scan Report Signed Patient: Chana Garrido MR#: [id number] : 1935 Acct:[id number] Age/Sex: 86 / F Date of Service: 07/09/21 Loc: ED Accession Number: [id number] ?? Procedure: CT chest abd pel w con Ordering Provider: Joni Pacheco D.O. PROCEDURE:? CT CHEST ABD PEL W CON ? INDICATIONS:? SOB, tachycardia, abdomen pain ? TECHNIQUE:? After the administration of intravenous contrast, axial sections acquired from the supraclavicular neck to the pubic symphysis.? Coronal and sagittal reformats were performed.? For radiation dose reduction, the following was used:? automated exposure control, adjustment of mA and/or kV according to patient size.? ? COMPARISON:Located Within [facility], CT, CT ABDOMEN PELVIS W CON, 11/30/2020, 21:18. ? FINDINGS:? Image quality:? There is motion artifact.? ? Lower Neck: No lymphadenopathy by size criteria. Thyroid:? Visualized thyroid demonstrates no discrete nodules. Axillae: No lymphadenopathy by size criteria. Chest Wall:? Unremarkable.? ? Lungs and Airways:? No acute consolidation.? There is mild dependent atelectasis.? There is scarring in the lung apices and lung bases.? In the right upper lobe, there is a 0.4 cm nodule on series 3, image 66.? No suspicious pulmonary nodules. The trachea and central airways are patent. Pleura: No pneumothorax or pleural effusions.? ? Heart: Heart size is mildly enlarged.? No pericardial effusion.? There are postsurgical changes consistent with prior CABG. Thoracic Vessels: The aorta and pulmonary arteries are normal in size.? Mediastinum and Mariah: No lymphadenopathy by size criteria. Esophagus: No wall thickening.? There is a small hiatal hernia. ? ? ABDOMEN: Liver:? No mass lesion. Gallbladder:? Surgically absent. Biliary ducts:? There is intra and extrahepatic biliary ductal dilatation, with the common bile duct measuring up to 0.8 cm Pancreas:? Unremarkable.? ? Spleen:? Normal in size.? ? Adrenal Glands:? No adrenal nodules.? ? Kidneys and Ureters:? No hydronephrosis.? ? ? Stomach and Bowel:? Stomach and small bowel loops are normal in caliber and wall thickness.? No evidence of appendicitis.? There is colonic diverticulosis without acute diverticulitis.? There is moderate stool distention in the rectum.? Peritoneum:? No abnormal intraperitoneal fluid.? No free air.? ? Ventral Wall: ? No hernia.? Abdominal Nodes:? No retroperitoneal or mesenteric adenopathy by size criteria.? Vessels:? Aorta and inferior vena cava are normal in size.? ? PELVIS: Pelvic Organs:? Unremarkable.? ? Bladder:? Unremarkable.? ? Pelvic Nodes: No enlarged lymph nodes.? Miscellaneous: No inguinal hernias are seen. ? ? ? Bones:? Visualized osseous structures demonstrate no suspicious focal lesions. IMPRESSION:? ? 1. No acute airspace consolidation.? ? 2.? Small right upper lobe 0.4 cm pulmonary nodule.? A follow-up CT may be performed in 12 months to demonstrate stability if clinically indicated. ? 3.? Moderate stool stool distention in the rectum may reflect impaction.? No evidence of bowel obstruction. ? 4. Colonic diverticulosis without acute diverticulitis. ? Dictated by: Cirilo Farrell M.D. on 07/09/2021 at 21:16 ? ? Approved by: Cirilo Farrell M.D. on 07/09/2021 at 21:33 ? [facility] Narrative Medical decision making narrative: 86-year-old female with significant medical history presents again for evaluation. She has declined significantly since her last visit recently when she was able to walk out without assistance. She had an unresponsive episode, presumably from syncope that is profoundly weak, dehydrated and altered. She has no support at home and is in fact squatting in a home in [place] without permission. She has no access to running water. She has had a rapid and significant decline as of late and has no support at home. Per social service assistant there are multiple APS reports filed on her behalf. She requires hospitalization for stabilization of her condition, further evaluation and in the end multidisciplinary approach for her overall care and safe disposition Discharge Plan Departure Patient Disposition: Admitted as Observation Clinical Impression: Acute alteration in mental status, Adult failure to thrive, Syncope, Pulmonary nodule Admit Date/Time: 07/09/21 21:54 Admit Provider: Mirtha Martinez
[2021-07-09] MEDS: SODIUM CHLORIDE 0.9% 1,000 ML 150 ML IV (19:15)
[2021-07-09 19:41] LABS: Add Manual Diff / Slide Review NO; Basophils Absolute Auto 100 /uL (0-100); Basophils Percent Auto 1.2 % (0-2); Eosinophils Absolute Auto 100 /uL (0-450); Hematocrit 43.2 % (36-46); Hemoglobin 14.3 g/dL (12.0-16.0); Lymphocytes Absolute Auto 1400 /uL (1100-4500); Lymphocytes Percent Auto 19.7 % (25-40); Mean Corpuscular HGB Conc 33.1 % (30-36); Mean Corpuscular Hemoglobin 30.5 PG (26-34); Monocytes Absolute Auto 500 /uL (0-900); Monocytes Percent Auto 7.1 % (3-14); Neutrophils Absolute Auto 5100 /uL (1500-7000); Platelet Count 226 X10^3/uL (150-400); Red Blood Cell Count 4.69 X10^6/uL (4.0-5.2); Red Cell Distribution Width 14.4 % (11.6-14.8); White Blood Cell Count 7.2 X10^3/uL (4.5-11.0)
[2021-07-09 20:00] LABS: Lactate (Lactic Acid) 1.2 mmol/L (0.7-2.1)
[2021-07-09 20:02] LABS: Acetaminophen < 10 ug/mL (10-30); Alanine Aminotransferase 12 IU/L (<35); Albumin 4.4 g/dL (3.5-5.0); Albumin Globulin Ratio 1.2 (1.0-2.8); Alkaline Phosphatase 146 U/L (38-126); Aspartate Aminotransferase 25 IU/L (14-36); BUN Creatinine Ratio 22.6 (6-22); Bilirubin Total 0.8 mg/dL (0.2-1.3); Blood Urea Nitrogen 24 mg/dL (7-17); Calcium 9.8 mg/dL (8.4-10.2); Carbon Dioxide 27 mmol/L (22-32); Chloride 102 mmol/L (98-107); Creatine Kinase < 20 U/L (30-135); Estimated Glomerular Filt Rate 52 mL/min (>60); Ethanol (ETOH) < 10 mg/dL; Globulin 3.8 g/dL (1.7-4.1); Glucose 96 mg/dL (80-110); HEMOLYSIS < 15 (0-50); Potassium 4.2 mmol/L (3.4-5.1); Salicylate < 1.0 mg/dL (<20); Sodium 140 mmol/L (137-145); Total Protein 8.2 g/dL (6.3-8.2)
[2021-07-09 20:13] LABS: Troponin I < 0.012 ng/mL (0.01-0.034)
[2021-07-09] MEDS: PANTOPRAZOLE 40 MG VIAL IV (20:14)
[2021-07-09] MEDS: ONDANSETRON 4 MG/2 ML INJ IV (20:14)
[2021-07-09 20:18] LABS: Prolactin 34.9 ng/mL (3.0-18.6)
--- NOTE | 2021-07-09 20:18 | DI.CT.S_ITS ---
PROCEDURE: CT HEAD/BRAIN WO CON INDICATIONS: altered, on thinners, unresponsive TECHNIQUE: Noncontrast 4.5 mm thick angled axial sections acquired from the foramen magnum to the vertex, with coronal and sagittal reformats. For radiation dose reduction, the following was used: automated exposure control, adjustment of mA and/or kV according to patient size. COMPARISON: [facility], CT, CT HEAD/BRAIN WO CON, 08/17/2020, 11:12. FINDINGS: Image quality: Excellent. CSF spaces: Basal cisterns are patent. No extra-axial fluid collections. There is mild ex vacuole dilatation of the right lateral ventricle secondary to right parietal and temporal lobe encephalomalacia. Brain: No intracranial hemorrhage, mass, or mass effect. A large region of cortical and subcortical encephalomalacia is redemonstrated within the right parietal and temporal lobes consistent with sequelae of a prior infarct. There are subcortical, periventricular and deep white matter hypodensities consistent with moderate chronic small vessel ischemic changes. . Skull and face: Calvarium and visualized facial bones appear intact, without suspicious lesions. Sinuses: Visualized sinuses and mastoids are clear. IMPRESSION: 1. No acute intracranial hemorrhage or mass effect. 2. Large region of cortical and subcortical encephalomalacia in the right parietal and temporal lobes redemonstrated consistent with sequelae of a prior infarct in the right MCA territory. The distribution appears similar to the prior study but it there is clinical suspicion for and acute on chronic infarct, further evaluation may be obtained with MRI. 3. Moderate chronic white matter small vessel ischemic changes. Dictated by: Cirilo Farrell M.D. on 07/09/2021 at 20:55 Approved by: Cirilo Farrell M.D. on 07/09/2021 at 21:15
--- NOTE | 2021-07-09 20:18 | DI.CT.S_ITS ---
PROCEDURE: CT CHEST ABD PEL W CON INDICATIONS: SOB, tachycardia, abdomen pain TECHNIQUE: After the administration of intravenous contrast, axial sections acquired from the supraclavicular neck to the pubic symphysis. Coronal and sagittal reformats were performed. For radiation dose reduction, the following was used: automated exposure control, adjustment of mA and/or kV according to patient size. COMPARISON:[facility], CT, CT ABDOMEN PELVIS W CON, 11/30/2020, 21:18. FINDINGS: Image quality: There is motion artifact. Lower Neck: No lymphadenopathy by size criteria. Thyroid: Visualized thyroid demonstrates no discrete nodules. Axillae: No lymphadenopathy by size criteria. Chest Wall: Unremarkable. Lungs and Airways: No acute consolidation. There is mild dependent atelectasis. There is scarring in the lung apices and lung bases. In the right upper lobe, there is a 0.4 cm nodule on series 3, image 66. No suspicious pulmonary nodules. The trachea and central airways are patent. Pleura: No pneumothorax or pleural effusions. Heart: Heart size is mildly enlarged. No pericardial effusion. There are postsurgical changes consistent with prior CABG. Thoracic Vessels: The aorta and pulmonary arteries are normal in size. Mediastinum and Mariah: No lymphadenopathy by size criteria. Esophagus: No wall thickening. There is a small hiatal hernia. ABDOMEN: Liver: No mass lesion. Gallbladder: Surgically absent. Biliary ducts: There is intra and extrahepatic biliary ductal dilatation, with the common bile duct measuring up to 0.8 cm Pancreas: Unremarkable. Spleen: Normal in size. Adrenal Glands: No adrenal nodules. Kidneys and Ureters: No hydronephrosis. Stomach and Bowel: Stomach and small bowel loops are normal in caliber and wall thickness. No evidence of appendicitis. There is colonic diverticulosis without acute diverticulitis. There is moderate stool distention in the rectum. Peritoneum: No abnormal intraperitoneal fluid. No free air. Ventral Wall: No hernia. Abdominal Nodes: No retroperitoneal or mesenteric adenopathy by size criteria. Vessels: Aorta and inferior vena cava are normal in size. PELVIS: Pelvic Organs: Unremarkable. Bladder: Unremarkable. Pelvic Nodes: No enlarged lymph nodes. Miscellaneous: No inguinal hernias are seen. Bones: Visualized osseous structures demonstrate no suspicious focal lesions. IMPRESSION: 1. No acute airspace consolidation. 2. Small right upper lobe 0.4 cm pulmonary nodule. A follow-up CT may be performed in 12 months to demonstrate stability if clinically indicated. 3. Moderate stool stool distention in the rectum may reflect impaction. No evidence of bowel obstruction. 4. Colonic diverticulosis without acute diverticulitis. Dictated by: Cirilo Farrell M.D. on 07/09/2021 at 21:16 Approved by: Cirilo Farrell M.D. on 07/09/2021 at 21:33
[2021-07-09 20:33] LABS: Thyroid Stimulating Hormone 3.05 uIU/mL (0.47-4.68)
[2021-07-09 20:44] LABS: Adenovirus Not Detected (Not Detect); B. parapertussis Not Detected (Not Detecte); Bordetella pertussis Not Detected (Not Detecte); Chlamydophila pneumoniae Not Detected (Not Detect); Coronavirus 229E Not Detected (Not Detect); Coronavirus HKU1 Not Detected (Not Detect); Coronavirus NL 63 Not Detected (Not Detect); Coronavirus OC43 Not Detected (Not Detect); Human Metapneumovirus Not Detected (Not Detect); Human Rhinovirus/Enterovirus Not Detected (Not Detect); Influenza A Not Detected (Not Detect); Influenza B Not Detected (Not Detect); Mycoplasma pneumoniae Not Detected (Not Detect); Parainfluenza Virus 1 Not Detected (Not Detect); Parainfluenza Virus 2 Not Detected (Not Detect); Parainfluenza Virus 3 Not Detected (Not Detect); Parainfluenza Virus 4 Not Detected (Not Detect); Respiratory Syncytial Virus Not Detected (Not Detect); SARS- CoV-2 Not Detected (Not Detecte)
[2021-07-10] VITALS (10 sets, daily range): BP systolic 102–163; BP diastolic 52–90; PULSE 53–85; RESP 15–18; TEMP 35.9–36.7; O2SAT 95–100
--- NOTE | 2021-07-10 01:23 | PC.ADMIT ---
Addendum entered by Eveline Horner R.N. 07/10/21 03:44: Pt reports last food was two days prior to admit because she had loose stools and reportedly does not eat when she has diarrhea. She confirmed that there was food in the house but she chose to not eat. Original Note: [id number] Admission Note: Pt arrived to unit in no apparent respiratory or cardiovascular distress. Respirations, equal, even unlabored but shallow. Bilateral lower extremities show cap refill >2 sec, cool, with good motion and sensation. Pt reports numbness in hands that is WNL. Alert but not oriented to month/day. Scattered bruises and healing scratches on skin, areas of concern noted in skin assessment. Pt has no teeth and denies the use of dentures at home. Pt has greenish discharge at the corner of her eyes as well as erythema surrounding the lids, and reports they they itch when asked. Pt has 1 cm lump on top of forehead, hard and immobile, denies pain. Pt not a good historian, cannot remember medications. Pt reports no running water in living area and a [id number] next to where she sleeps. Indicates to this RN that she gets two meals a day but they seem to be inappropriate for her dentition- reports that her son cooks me a hamburger when I faint and cannot elaborate further on that topic. Does report electricity in the home with 2 dogs, and a mini fridge. Reports phone not working, and does not have a way to adequately contact son, who she lives with. Pt reports living in an apartment with her son, but says there is no rent needed, and her son does the yardwork and mows the lawn in exchange for living there. Unable to elaborate further. The patient, Chana Garrido, 86 y/o, was given written information regarding hospital policies, unit procedures and contact persons. Patient's smoking status: Never smoker. Vital Signs - 8 hr 07/09/21 18:19 07/09/21 19:25 07/09/21 19:29 Temperature 97.8 F Pulse Rate 80 82 90 Respiratory Rate 18 24 12 Blood Pressure 159/87 H 203/88 H Pulse Oximetry 99 97 98 07/09/21 19:30 07/09/21 20:00 07/09/21 20:15 Temperature Pulse Rate 85 83 86 Respiratory Rate 18 17 19 Blood Pressure 189/81 H 178/146 H 159/87 H Pulse Oximetry 98 91 95 07/09/21 20:42 07/09/21 21:00 07/09/21 21:30 Temperature Pulse Rate 87 86 88 Respiratory Rate 35 H 20 19 Blood Pressure Pulse Oximetry 94 91 86 L 07/09/21 22:00 07/09/21 22:30 07/09/21 22:45 Temperature 97.4 F L Pulse Rate 82 78 71 Respiratory Rate 16 19 14 Blood Pressure 184/97 H Pulse Oximetry 96 97 99
--- NOTE | 2021-07-10 01:38 | P.HP_ITS ---
History of Present Illness History of Present Illness Date Patient Seen: 07/10/21 Time Patient Seen: 01:39 Chief complaint: Decreased LOC Narrative: Chana Garrido is an 86-year-old female with a history of chronic abdominal pain, CAD, anxiety, atrial fibrillation on anticoagulation, history of thromboembolism and the popliteal artery, breast cancer, CVA, presents today because supposedly her son found her passed out on the ?lisbeth potty. Patient states she only eats 2 times a day consisting mostly of putting and peanut butter cookies and then has maybe a hot meal, usually hamburger. She presented today with EMS and she was very confused and apparently covered with stool and urine. She told the nurse that she lives in an apartment that is connected to the house that her son lives in and when discussing her case with the ED provider, she was in the process of being evicted from an apartment however she has tenant rights and apparently that is been an issue. Review of case management note written on the indicates that she has no running water in her home and reportedly lives with her son and was recently homeless. She was apparently confused, unkempt and appeared to be [facility]. It appears that multiple times when the son was contacted he was hard to be connected to and when they were able to reach him he would request that the patient be sent home by cab. She was apparently seen in the emergency department on July 07 and at that time there objective will to obtain a urinalysis however it appeared to be contaminated and a culture was not able to be grown or specified. CT of the head did report prior cortical and subcortical encephalomalacia on the right parietal and temporal lobes consistent with a prior infarct in the right MCA territory and suggested if there were concerned of an acute on chronic CVA to have the patient undergo MRI imaging to further delineate this. CT of the chest abdomen and pelvis reported a small right upper lobe 0.4 cm pulmonary nodule with recommendations for follow-up in 12 months and moderate stool distention in the rectum likely impaction and colonic diverticulosis without acute diverticulitis. WBC is unremarkable, she has a creatinine bump of 1.06 with an EGFR of 52, alk-phos elevated at 146 UA is positive for ketones and trace leukocyte esterase and will be cultured. COVID-19 PCR is negative. 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) Asthma Breast cancer (~2001) CAD (coronary artery disease) Calcified nodule Cerebrovascular accident (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 right middle cerebral artery (04/27/17) Cervical cancer, FIGO stage I Cholelithiasis Chronic back pain Developmental disorder Diarrhea Essential hypertension (02/19/12) Failure to thrive in adult Fibrocystic breast disease GERD (gastroesophageal reflux disease) History of colon polyps (02/19/12) History of left breast cancer (~2008) Hyperlipidemia IBS (irritable bowel syndrome) Measles 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, bilateral Personal history of other malignant neoplasm of skin (02/19/12) 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) Systolic congestive heart failure with reduced left ventricular function, NYHA class 2 (10/26/10) Surgical History Anesthesia Status post arthroscopy Status post biopsy (~2014) Status post breast lumpectomy (~2008) Status post cholecystectomy Status post coronary artery bypass graft Status post hysterectomy (~2009) Family & Social History Family history unavailable: No (Father at 58 MD, mother at 28 cancer, sister 28 leg cance) Social History: household members children Prior Living Arrangements Apartment/Condo Safety & Behavioral: Feels Safe in Current No Environment Been Physically Hurt or No Threatened By a Person Tobacco & Substance use: Smoking Status Never smoker alcohol intake never alcohol intake frequency holiday/special occasion Substance Use Type does not use Meds Home Medications and Allergies Home Medications Medication Instructions Recorded Confirmed Type Handicap Parking #1 ea 06/04/18 03/09/20 Rx albuterol sulfate 90 mcg/actuation 2 puff INHALATION Q6H PRN #8 gram 02/22/19 06/10/21 Rx aerosol inhaler (Proventil HFA) inhalational spacing device #1 each 03/24/19 03/09/20 Rx (Aerochamber MV) ferrous sulfate 325 mg (65 mg 325 mg PO DAILY #60 tab 02/13/20 03/09/20 Rx iron) tablet apixaban 5 mg tablet 5 mg PO BID #180 tab 08/01/20 06/10/21 Rx nitroglycerin 0.4 mg sublingual See Rx Instructions SUBLINGUAL PRN 03/18/21 06/10/21 Rx tablet (Nitrostat) PRN #30 tab gabapentin 300 mg capsule 300 mg PO TID #270 cap 04/10/21 06/10/21 Rx (Neurontin) atorvastatin 40 mg tablet 40 mg PO BEDTIME #90 tab 05/03/21 06/10/21 Rx metoprolol tartrate 25 mg tablet 12.5 mg PO DAILY #45 tab 05/03/21 06/10/21 Rx hydrocodone 7.5 mg-acetaminophen 1 tab PO Q6H PRN #120 tab 06/06/21 06/10/21 Rx 325 mg tablet diclofenac sodium 1 % topical gel 2 g TOPICAL QID #100 g 06/26/21 Rx hydrocodone 5 mg-acetaminophen 325 1 tab PO BID PRN #20 tab 06/26/21 Rx mg tablet losartan 50 mg tablet 50 mg PO DAILY #90 tab 07/02/21 Rx pantoprazole 40 mg tablet,delayed 40 mg PO DAILY #90 tab 07/02/21 Rx release Allergies Allergy/AdvReac Type Severity Reaction Status Date / Time furosemide [FUROSEMIDE] Allergy Mild RASH Verified 07/09/21 18:19 sertraline [SERTRALINE] Allergy Mild FEELS Verified 07/09/21 18:19 DRUGGED lisinopril AdvReac Mild Cough Verified 07/09/21 18:19 Review of Systems Review of Systems ROS: Yes All systems reviewed with the patient and are negative except as otherwise documented Exam Vital Signs (past 8 hours): - 07/09/21 18:19 07/09/21 19:25 07/09/21 19:29 Temperature 97.8 F Pulse Rate 80 82 90 Respiratory Rate 18 24 12 Blood Pressure 159/87 H 203/88 H Pulse Oximetry 99 97 98 07/09/21 19:30 07/09/21 20:00 07/09/21 20:15 Temperature Pulse Rate 85 83 86 Respiratory Rate 18 17 19 Blood Pressure 189/81 H 178/146 H 159/87 H Pulse Oximetry 98 91 95 07/09/21 20:42 07/09/21 21:00 07/09/21 21:30 Temperature Pulse Rate 87 86 88 Respiratory Rate 35 H 20 19 Blood Pressure Pulse Oximetry 94 91 86 L 07/09/21 22:00 07/09/21 22:30 07/09/21 22:45 Temperature 97.4 F L Pulse Rate 82 78 71 Respiratory Rate 16 19 14 Blood Pressure 184/97 H Pulse Oximetry 96 97 99 Oxygen Delivery Method Room Air Narrative Exam Narrative: Gen: Alert, oriented chronically ill-appearing 86y.o. female, appears older than stated age HEENT: normocephalic, atraumatic, conjunctiva clear, sclera non-icteric, oral mucosa pink and dry Neck: supple, full ROM, no JVD, trachea is midline Resp: Lungs CTA, non-labored breathing CV: RRR, no murmur or rubs Abd: soft, non-tender, hypoactive BTs Skin: no lesions or rashes, dry and intact Neuro: Almost child-like. Alert and oriented X 4 w/no focal deficits. Speech clear and coherent. Extremities: moves all 4 extremities, appears very weak, negative Virginia?s sign Psyche: normal mood and affect. Objective Labs Result Diagrams: 07/09/21 19:08 07/09/21 19:08 Labs: Laboratory Results - last 24 hr 07/09/21 07/09/21 07/09/21 19:08 19:08 19:08 WBC 7.2 RBC 4.69 Hgb 14.3 Hct 43.2 MCV 92.0 MCH 30.5 MCHC 33.1 RDW 14.4 Plt Count 226 Neut % (Auto) 71.0 Lymph % (Auto) 19.7 L Levy % (Auto) 7.1 Eos % (Auto) 1.0 L Baso % (Auto) 1.2 Neut # (Auto) 5100 Lymph # (Auto) 1400 Levy # (Auto) 500 Eos # (Auto) 100 Baso # (Auto) 100 Sodium 140 Potassium 4.2 Chloride 102 Carbon Dioxide 27 BUN 24 H Creatinine 1.06 H Estimated GFR 52 L BUN/Creatinine Ratio 22.6 H Glucose 96 Lactate 1.2 Calcium 9.8 Total Bilirubin 0.8 AST 25 ALT 12 Alkaline Phosphatase 146 H Total Creatine Kinase < 20 L CK-MB (CK-2) TNP CK-MB (CK-2) Rel Index TNP Troponin I < 0.012 Total Protein 8.2 Albumin 4.4 Globulin 3.8 Albumin/Globulin Ratio 1.2 Procalcitonin 0.10 TSH Prolactin 34.9 H Salicylates < 1.0 Acetaminophen < 10 Ethyl Alcohol < 10 Chlamy pneumoniae PCR Adenovirus (PCR) B. pertussis DNA (PCR) B.parapertussis DNA PCR Coronavirus OC43 (PCR) Coronavirus HKU1 (PCR) Coronavirus 229E (PCR) SARS-CoV-2 (PCR) Coronavirus NL63 (PCR) Human Metapneumovir PCR Influenza Type A (PCR) Influenza Type B (PCR) M. pneumoniae (PCR) Parainfluenza 1 (PCR) Parainfluenza 2 (PCR) Parainfluenza 3 (PCR) Parainfluenza 4 (PCR) RSV (PCR) Entero/Rhino (PCR) 07/09/21 07/09/21 19:08 19:28 WBC RBC Hgb Hct MCV MCH MCHC RDW Plt Count Neut % (Auto) Lymph % (Auto) Levy % (Auto) Eos % (Auto) Baso % (Auto) Neut # (Auto) Lymph # (Auto) Levy # (Auto) Eos # (Auto) Baso # (Auto) Sodium Potassium Chloride Carbon Dioxide BUN Creatinine Estimated GFR BUN/Creatinine Ratio Glucose Lactate Calcium Total Bilirubin AST ALT Alkaline Phosphatase Total Creatine Kinase CK-MB (CK-2) CK-MB (CK-2) Rel Index Troponin I Total Protein Albumin Globulin Albumin/Globulin Ratio Procalcitonin TSH 3.05 Prolactin Salicylates Acetaminophen Ethyl Alcohol Chlamy pneumoniae PCR Not detected Adenovirus (PCR) Not detected B. pertussis DNA (PCR) Not detected B.parapertussis DNA PCR Not detected Coronavirus OC43 (PCR) Not detected Coronavirus HKU1 (PCR) Not detected Coronavirus 229E (PCR) Not detected SARS-CoV-2 (PCR) Not detected Coronavirus NL63 (PCR) Not detected Human Metapneumovir PCR Not detected Influenza Type A (PCR) Not detected Influenza Type B (PCR) Not detected M. pneumoniae (PCR) Not detected Parainfluenza 1 (PCR) Not detected Parainfluenza 2 (PCR) Not detected Parainfluenza 3 (PCR) Not detected Parainfluenza 4 (PCR) Not detected RSV (PCR) Not detected Entero/Rhino (PCR) Not detected Assessment & Plan Assessment & Plan narrative: Chana Garrido is admitted for a syncopal episode, abnormal CT finding regarding old vs new CVA and failure to thrive. 1. Syncopal episode, unwitnessed * Patient was reportedly found by EMS staff to be unresponsive when they found her * She is being hydrated and has improved significantly since in to the emergency department 2. History of 2018 right MCA territory CVA, abnormal finding on CT * CT indicated significant encephalomalacia in the right MCA territory and recommended MRI imaging if with a suspicion of a new stroke, recommended MRI imaging * MR stroke to be done today * NIH scale for baseline is 4 with deficits in mild dysarthria, nasal labial fold on the left side which may have been present for a long time, and not knowing the current year * PT/OT and speech 3. Heart failure with reduced ejection fraction * Last echocardiogram noted in her chart in 2019, she had of 35-40% ejection fraction with moderate global hypokinesis and severe hypokinesis in the inferior and inferior posterior wall * Will do a limited echo with a bubble study * Continue home dose of losartan and metoprolol 4. Paroxysmal atrial fibrillation, chronic * Continue home dose of apixaban 5 mg p.o. b.i.d. * Cardiac telemetry 5. Coronary artery disease, chronic * Continue home dose of losartan and metoprolol 6. Chronic pain syndrome usually associated with abdominal pain * Currently holding strong opioid medications due to her syncopal episodes and encephalopathy 7. Adult failure to thrive * This appears to be recurrent problem with multiple APS referrals. I have requested social work consult. VTE Prophylaxis: Wells risk score 1.5 X Bilateral SCDs Patient is currently anticoagulated on Apixaban. Patient is admitted to the inpatient service due to the severity of disease, risks of further disease progression and this stay is expected to exceed 2 midnights. FEN: IV fluids: NS at 100 ml/hour, diet: general, labs: CBC, C/BMP, liver enzymes, [employer] None Dispo: Unknown at this time, likely needs fpc care placement Code status: Full Code as discussed with the patient who identifies her son as her surrogate and POA. [X] I have utilized all available immediate resources to obtain, update, or review of the patient's current medications COVID-19 COVID-19 status: Negative Result date/Date tested (Pos, Neg/Pending): 07/10/21 Scores NIHSS Level of Conciousness: Alert, keenly responsive Ask month/age: Answers one question correctly, intubated follow commands Open/close eyes, close hand: Performs both tasks correctly Best gaze horizontal: Normal Visual chen: No visual loss Facial palsy: Minor paralysis, flattened nasolabial fold, asymmetry on smiling Left arm drift: No drift for full 10 sec Right arm drift: No drift for full 10 sec Left leg drift: No drift for full 5 sec Right leg drift: No drift for full 5 sec Limb ataxia: Absent Sensory on face/arms/legs: Normal, no sensory loss Best language: Mild to moderate, slurs some words Dysarthria: Mild to mod,some slurring Extinction or inattention: No abnormality Total NIH Stroke scale score: 4 Wells' Criteria for PE Clinical signs and symptoms of DVT: No PE is #1 Dx or equally likely: No Heart rate > 100: No Immobilization at least 3 days or surg in previous 4 weeks: Yes History of PE or DVT: No Hemoptysis: No Malignancy w/Treatment within 6 months or palliative: No Wells' PE Score total: 1.5 Quality Stroke Symptom Onset Unknown: Yes VTE Deep Vein Thrombosis/Pulmonary Embolism Present on Admission: No MIPS - Admit I confirm the patient?s Advance Care Plan is present, Code status is documented, Surrogate decision maker is in patient?s record [If Yes, STOP here]: Yes MIPS - DC The patient has current or prior documentation of left ventricular ejection fraction (LVEF) less than 40%, or moderate or severely depressed left ventricular systolic function.: No A. The patient was prescribed or already taking an Angiotensin-Converting Enzyme (HIRAM) Inhibitor, or Angiotensin Receptor Mathew (ARB).: Yes B. The patient was prescribed or already taking a beta-mathew. [If Yes to Both A & B, STOP here]: Yes
[2021-07-10] MEDS: SODIUM CHLORIDE 0.9% 1,000 ML 100 ML IV ×2 (03:42→16:25)
--- NOTE | 2021-07-10 04:28 | DI.MRI.S_ITS ---
PROCEDURE: MR STROKE Pre- and post-contrast brain MRI, non-contrast brain MR angiogram, pre- and postcontrast neck MR angiogram INDICATIONS: Abnormal finding on CT suspecting acute on chronic CVA TECHNIQUE: Brain: Noncontrast axial T1 spin echo, axial T2 fast spin echo, sagittal and axial FLAIR, coronal T2 fast spin echo, axial gradient echo, axial diffusion and ADC through the brain. After the administration of contrast, axial 3D VIBE of the cranial vasculature and brain. Brain MRA: Non-contrast 3-D time of flight MR angiogram, with multiple jtsudrs-sppqvlnok-xvllkapobv (MIP) reformats performed. Neck MRA: Axial and sagittal TruFISP through the neck. Coronal dynamic MR angiogram during administration of contrast in the arterial and venous phases, with 3-dimenstional twvcqfp-efootqslw-bjyplsnqvj (MIP) reformats constructed from subtraction images. COMPARISON: [facility], , STROKE PROTOCOL, 04/01/2017, 11:52. FINDINGS: Image quality: Excellent. BRAIN: The ventricular system and cortical sulci demonstrate atrophy, consistent for the patient's stated age. There are areas of increased T2/FLAIR signal intensity within the periventricular and subcortical white matter. There is no acute intra-or extra axial fluid collection. No acute hemorrhage, mass lesion or midline shift. Brainstem is unremarkable old left frontal temporal parietal infarction is present.. There are no areas of restricted diffusion. Globes are symmetrical. Sinuses are aerated. Osseous structures are intact. BRAIN MR ANGIOGRAM: Anterior circulation: Intracranial internal carotid arteries are normal in size and enhancement. The flow within the paired anterior cerebral arteries is normal and symmetric. The flow within the left middle cerebral artery is normal and symmetric. As identified on prior exam, there is decreased flow with minimal distal reconstitution of the M1 segment on the right, as seen on prior exam. The anterior communicating artery is seen. 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 No stenoses, occlusions, or aneurysms. Posterior circulation: The visualized portions of the vertebral arteries demonstrate normal caliber, and join to form a normal appearing basilar artery. The flow within the posterior cerebral arteries is normal and symmetric. No stenoses, occlusions, or aneurysms. NECK MR ANGIOGRAM: Carotids: Great vessels demonstrate a conventional anatomy as they arise from the aortic arch. The origins of the common carotid arteries appear patent. The calibers and courses of both common carotid arteries are normal. The bifurcation regions appear normal bilaterally. The internal carotid arteries demonstrate normal course and caliber. Posterior circulation: The origins of the vertebral arteries appear patent. More superior portions of both vertebral arteries demonstrate normal course and caliber, and join to form a normal appearing basilar artery. Miscellaneous: Subclavian arteries appear patent. Pre-contrast images through the neck show no soft tissue abnormalities. IMPRESSION: 1. No acute intracranial process. 2. Moderate atrophy and chronic microvascular ischemic changes. 3. Diminutive flow within the right M1 segment and distally unchanged consistent with old infarction. 4. No areas of hemodynamically significant stenosis, vascular occlusion or aneurysmal dilation within the neck vasculature. Dictated by: Rosemarie Meehan M.D. on 07/10/2021 at 14:04 Approved by: Rosemarie Meehan M.D. on 07/10/2021 at 14:19
--- NOTE | 2021-07-10 04:53 | DI.ECHO.S_ITS ---
[facility] +---------+ : : [address] : : : : [id number] : : : : Phone: [phone]+ Echocardiogram Report + + :Name: SHAUN VALDEZ Study Date: 07/10/2021 Height: 67 in : :[facility] ReadingLocation: Weight: 128 lb : : Gender: Female BSA: 1.7 m2 : :: 1935 Age: 86 yrs BP: 184/97 mmHg: :Reason For Study: CVA : :Ordering Physician: Valentina MARQUEZformed By: Kirstie Robbins : :Referring: STIVEN MARQUEZ : + + Interpretation Summary The left ventricle is normal in size and wall thickness. The ejection fraction is estimated to be 35-40%. There is mild to moderate global hypokinesis of the left ventricle. The inferior and inferposterior are relatively more hypokinetic, but overall unchanged from prior exam. Right ventricular systolic function is mild to moderately reduced. The right ventricular systolic pressure is estimated to be at least 29 mmHg based on an estimated right atrial pressure of 8 mm Hg. The left atrium is severely dilated. The right atrium is severely dilated. There is moderate mitral annular calcification. There is mild mitral regurgitation. The aortic valve is mildly calcified. Overall no significant change from prior exam. However, there the MR and TR are now mild instead of moderate. The pulmonary hypertension is improved from prior exam. Procedure: A two-dimensional transthoracic echocardiogram with color flow and Doppler was performed. The study quality was technically adequate. Comparison is made with the echocardiogram of 01/07/2019. The patient was in atrial fibrillation with heart rates between 54-75 bpm during the exam. Left Ventricle: The left ventricle is normal in size and wall thickness. The ejection fraction is estimated to be 35-40%. There is mild to moderate global hypokinesis of the left ventricle. The inferior and inferposterior are relatively more hypokinetic, but overall unchanged from prior exam. Diastolic function could not be accurately assessed due to atrial fibrillation. Right Ventricle: The right ventricle is normal size. Right ventricular systolic function is mild to moderately reduced. Atria: The left atrium is severely dilated. The right atrium is severely dilated. There is no Doppler evidence for an interatrial shunt. Mitral Valve: There is moderate mitral annular calcification. The mitral valve leaflets are mildly calcified. There is mild mitral regurgitation. Aortic Valve: The aortic valve is mildly calcified. There is no hemodynamically significant valvular aortic stenosis. There is trace aortic regurgitation. Tricuspid Valve: The tricuspid valve is normal in structure and function. There is mild tricuspid regurgitation. The right ventricular systolic pressure is estimated to be at least 29 mmHg based on an estimated right atrial pressure of 8 mm Hg. Pulmonic Valve: The pulmonic valve is not well seen, but is grossly normal. There is no pulmonic valvular regurgitation. Great Vessels: The aortic root is normal size. The dimensions of the ascending aorta are normal. The IVC is of normal diameter and collapses less than 50% with a sniff. This suggests a right atrial pressure of 8 mm Hg. Pericardium/ Pleura There is no pericardial effusion. There is no pleural effusion. MMode/2D Measurements & Calculations LVIDd: 4.9 cm LVOT diam: 2.0 cm LVIDs: 4.0 cm Ao root diam: 3.2 cm FS: 18.5 % asc Aorta Diam: 3.2 cm IVSd: 1.1 cm LVPWd: 0.96 cm LV luna. diameter/BSA (cm/m^2): 2.9 LV sys. diameter/BSA (cm/m^2): 2.4 LA A2 area: 27.3 cm2 RA long axis: 6.0 cm LA A4 area: 30.0 cm2 RA area: 23.9 cm2 LA length (vol): 6.6 cm RA vol: 80.6 ml LA vol: 106.2 ml RA : 48.2 ml/m2 LA vol index: 63.5 ml/m2 IVC diam: 1.4 cm RVD1 (basal): 3.8 cm RVD2 (mid): 3.8 cm TAPSE: 1.2 cm Doppler Measurements & Calculations Ao V2 max: 137.4 cm/sec LVOT Max Bernardo: 61.4 cm/sec Ao V2 mean: 98.4 cm/sec LV V1 max P.5 mmHg Ao max P.6 mmHg LV V1 VTI: 11.9 cm Ao mean P.3 mmHg NERISSA(I,D): 1.5 cm2 Ao V2 VTI: 24.6 cm NERISSA(V,D): 1.4 cm2 sev ratio: 0.49 NERISSA indexed to BSA (cm^2/m^2): 0.90 MV E max bernardo: 96.4 cm/sec TR max bernardo: 228.2 cm/sec MV A max bernardo: 2.1 cm/sec TR max P.8 mmHg MV E/A: 46.5 PA V2 max: 95.2 cm/sec Med Peak E' Bernardo: 5.8 cm/sec PA V2 mean: 64.6 cm/sec E/E' med: 16.6 PA mean P.8 mmHg Lat Peak E' Bernardo: 9.3 cm/sec PA pr(Accel): 44.7 mmHg E/E' lat: 10.4 E/e' average: 13.5 MV dec time: 0.23 sec SV(LVOT): 36.8 ml Reading Physician:JAVAN
[2021-07-10] MEDS: GABAPENTIN 100 MG CAPSULE PO ×3 (06:05→21:04)
[2021-07-10 06:16] LABS: Add Manual Diff / Slide Review YES; Hematocrit 43.2 % (36-46); Hemoglobin 14.2 g/dL (12.0-16.0); Mean Corpuscular HGB Conc 32.7 % (30-36); Mean Corpuscular Hemoglobin 30.3 PG (26-34); Mean Corpuscular Volume 92.4 fL (80-100); Platelet Count 164 X10^3/uL (150-400); Red Blood Cell Count 4.68 X10^6/uL (4.0-5.2); Red Cell Distribution Width 14.5 % (11.6-14.8); White Blood Cell Count 6.1 X10^3/uL (4.5-11.0)
[2021-07-10 07:17] LABS: Neutrophils Absolute Manual 4819 /uL (3000-5900); Total Cells Counted 100
[2021-07-10 07:19] LABS: Anisocytosis 1+
[2021-07-10] MEDS: APIXABAN 5 MG TABLET PO ×2 (09:47→21:04)
[2021-07-10] MEDS: METOPROLOL IR 25 MG TABLET 12.5 MG PO (09:47)
[2021-07-10] MEDS: PANTOPRAZOLE DR 40 MG TABLET PO (09:47)
[2021-07-10] MEDS: LOSARTAN 50 MG TABLET PO (09:48)
[2021-07-10 10:17] LABS: BUN Creatinine Ratio 19.6 (6-22); Blood Urea Nitrogen 19 mg/dL (7-17); Calcium 9.1 mg/dL (8.4-10.2); Carbon Dioxide 27 mmol/L (22-32); Chloride 106 mmol/L (98-107); Estimated Glomerular Filt Rate 58 mL/min (>60); Glucose 104 mg/dL (80-110); HEMOLYSIS 18 (0-50); Magnesium 1.8 mg/dL (1.6-2.3); Potassium 3.6 mmol/L (3.4-5.1); Sodium 139 mmol/L (137-145)
--- NOTE | 2021-07-10 12:15 | PT.IIE ---
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) Asthma Breast cancer (~2001) CAD (coronary artery disease) Calcified nodule Cerebrovascular accident (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 right middle cerebral artery (04/27/17) Cervical cancer, FIGO stage I Cholelithiasis Chronic back pain Developmental disorder Diarrhea Essential hypertension (02/19/12) Failure to thrive in adult Fibrocystic breast disease GERD (gastroesophageal reflux disease) History of colon polyps (02/19/12) History of left breast cancer (~2008) Hyperlipidemia IBS (irritable bowel syndrome) Measles 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, bilateral Personal history of other malignant neoplasm of skin (02/19/12) 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) Systolic congestive heart failure with reduced left ventricular function, NYHA class 2 (10/26/10) Physical Therapy Inpatient Evaluation/Re-Eval M1 PT/OT-IP Prior Functional Status Start: 07/10/21 13:33 Freq: NEEDED Status: Active Protocol: Document 07/10/21 12:15 AB (Rec: 07/10/21 13:43 AB [id number]) Medical Review Prior Functional Status Medical History Reviewed Yes Communication able to make needs known but needs increase time to respon Mobility and Gait pt stated that she is modified independent with all mobilities and ambulation without AD Social History Household Members children Living Arrangements Apartment/Condo Number of Floors (Floors) One Floor Number of Stairs To Enter/Railing? 6 steps to enter with R rail Home Equipment Straight Cane Additional Social History Comment pt stated that she sponge bathes and her son assists her with that does not have a working toilet and uses a bedside commode M2 PT-IP Current Condition Start: 07/10/21 13:33 Freq: NEEDED Status: Active Protocol: Document 07/10/21 12:15 AB (Rec: 07/10/21 13:43 AB [email or web address]) Physical Therapy Current Condition Current Condition Evaluation Date 07/10/21 Treatment Diagnosis altered mental status; syncope ; difficulty in walking Onset Date 07/09/21 M3 PT-IP Subjective Start: 07/10/21 13:33 Freq: NEEDED Status: Active Protocol: Document 07/10/21 12:15 AB (Rec: 07/10/21 13:43 AB [email or web address]) Subjective Physical Therapy Visit Type Type Initial Evaluation Visit Start Time 12:15 Visit Stop Time 12:45 Total Visit Minutes 30 Number of 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 [employer]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 0 Physical Therapy Visit Comments Patient Comments agreeable to do PT M4 PT-IP Mobility and Gait Start: 07/10/21 13:33 Freq: NEEDED Status: Active Protocol: Document 07/10/21 12:15 AB (Rec: 07/10/21 13:43 AB [email or web address]) PT-Bed Mobility Assessment Supine to Sit Supine to Sit Standby Assistance,Head of Bed Elevated PT-Transfer Assessment Sit to and From Stand Sit to and from Stand Moderate Assistance,Maximum Assistance,1 Person Assistance ,Use of Upper Extremities Equipment Transfer Assistive Device Gait Belt,Front Wheeled Walker Orthotic/Prosthetic Devices or Brace: No Transfers Transfer Destination Chair Transfer Technique ambulated Transfer Ability Level of Assist Moderate Assistance,1 Person Assistance,Use of Upper Extremities Comments Mobility Comments BP supine: 135/68. completed supine to sit SBA. able to sit on EOB SBA. c/o slight dizziness but dissipated. BP: 123/69. pt ageed to sit on the chair. completed sit to stand mod to max using FWW and ambulated ~ 6 ft using FWW mod A. pt sat on the chair and positioned on the chair. BP checked: 102/52. set up lunch for pt. call light within reach. informed nurse regarding pt's BP and mobility . Gait Assessment Gait Gait Assistance Required: Moderate Assistance Distance (Feet) 6 Able to Maintain Weight Bearing Status Yes During Gait Assistive Devices Assistive Device Gait Belt,Front Wheeled Walker Orthotic/Prosthetic Devices or Brace: No Gait Deviations General Gait Pattern Decreased Stride Length, Decreased Feet Clearance, Flexed Trunk,Step-to Gait Factors Limiting Gait Function Factors Limiting Gait Function Decreased Activity Tolerance, Decreased Strength,Difficulty Following Directions,Poor Balance,Poor Safety Awareness PT-Balance Assessment Sitting Balance and Reactions Static Sitting Balance Ability Good Dynamic Sitting Balance Ability Good Standing Balance and Reactions Static Standing Balance Ability Fair Dynamic Standing Balance Ability Fair Device Used FWW M5 PT-IP Objective Assessments Start: 07/10/21 13:33 Freq: NEEDED Status: Active Protocol: Document 07/10/21 12:15 AB (Rec: 07/10/21 13:43 AB [email or web address]) Orientation Orientation/Cognition Level of Alertness Alert Orientation Name Safety Awareness Decreased Safety Awareness Gross Range of Motion Lower Extremity ROM Assessment Within Functional Limits Strength Lower Extremity Strength Hip 4-/5 Knee 4-/5 Coordination Assessment Gross Coordination Gross Coordination WNL Sensation Assessment Sensation Gross Sensation WNL Muscle Tone Muscle Tone WNL Yes M6 PT-IP Treatment Start: 07/10/21 13:33 Freq: NEEDED Status: Active Protocol: Document 07/10/21 12:15 AB (Rec: 07/10/21 13:43 AB [email or web address]) Physical Therapy Treatment Education Education Provided Safety M7 PT-IP Assessment and Plan Start: 07/10/21 13:33 Freq: NEEDED Status: Active Protocol: Document 07/10/21 12:15 AB (Rec: 07/10/21 13:43 AB [email or web address]) PT Summary Assessment and Plan Potential Rehabilitation Potential Good Status of Condition at Evaluation Evolving Summary Impairments Pain,ROM,Strength,Balance, Coordination,Sensation,Tone, Cognition,Bed Mobility, Transfers,Gait,Activity Tolerance Assessment Summary pt requiring mod to max A with mobility and unable to tolerate much activity and c/o feeling weak. d/c plan depending if son will be able to provide appropriate assistance to pt but at this time will require SNF rehab to improve overall strength, activity tolerance and mobility independence. Goals Bed Mobility Goal Standby Assistance Transfer Goal Standby Assistance,Front Wheeled Walker Gait Goal Standby Assistance,Front Wheel Walker Gait Distance 200 Other Goals improve ambulation without AD/ SPC SBA 200 ft 6 steps R rail + SPC/HARNESS[employer] CGA Days to Meet Goals 10 Frequency of Treatment Frequency Of Treatment Once a Day Treatment Plan Physical Therapy Treatment Plan Bed Mobility Training,Transfer Training,Gait Training, Therapeutic Exercise,Balance Retraining,Discharge Planning, Hot or Cold Pack,Neuromuscular Re-ed,Coordination Retraining ,Manual Therapy Recommendations To Nursing Amount of Assist Needed 1 Person Assist Discharge Recommendations PT Discharge Recommendations Home with 08/09 Assist Available,Home Health,SNF Rehab,Home vs SNF Equipment Needed for Home Before FWW if not safe with SPC/ Discharge without AD Transportation Needs at Discharge Private Vehicle,Wheelchair/ Cabulance
--- NOTE | 2021-07-10 12:23 | ST.IPIE ---
Visit Care Team Role Provider Type Lizet Vázquez MD Primary Care Provider Physician Specialty: Family Practice Address: [address] [place] [address], [id number] Phone: Fax: Email: [email or web address] Emergency Provider Physician Specialty: Emergency Medicine Address: [address] [place] [address], [id number] Email: [email or web address] Self Admit Provider Physician Attending Provider Referring Provider Specialty: Internal Medicine Address: [address] [place] [address], [address] Email: [email or web address] 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 (Medical ~05/2017) right femoral artery, right brachial, radial, and ulnar arteries, left popliteal artery s/p thrombectomy from protein s and c deficiencies Arteriosclerotic cardiovascular disease (Medical 02/19/12) Asthma (Medical) Breast cancer (Medical ~2001) CAD (coronary artery disease) (Medical) Calcified nodule (Medical) right forhead Cerebrovascular accident (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 right middle cerebral artery (Medical 04/27/17) 04/2017 right temporparietal, 10/2017 right parietal lobe Cervical cancer, FIGO stage I (Medical) PT1a, PNX, pMX, Cholelithiasis (Medical) Chronic back pain (Medical) Developmental disorder (Medical) Diarrhea (Medical) Essential hypertension (Medical 02/19/12) Failure to thrive in adult (Medical) Fibrocystic breast disease (Medical) Adenomyosis GERD (gastroesophageal reflux disease) (Medical) History of colon polyps (Medical 02/19/12) History of left breast cancer (Medical ~2008) T1 N0, lumpectomy, consolidation irradiation Hyperlipidemia (Medical) IBS (irritable bowel syndrome) (Medical) Measles (Medical) Middle cerebral artery stenosis (Medical ~10/2017) diminished flow/near occlusion of inferior branch of M2 right middle cerebral artery Osteoarthritis of knees, bilateral (Medical) severe tricompartmental Personal history of other malignant neoplasm of skin (Medical 02/19/12) Protein C deficiency (Medical ~05/2017) Protein S deficiency (Medical ~05/2017) 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 Mirtha Martinez Reason for Referral CVA, LOC Setting Assessment Location Acute Care Visit Type Note Type Initial evaluation Next Note Type Next Note Type Treatment Note Patient Information Identification Type Name,ID Card History The pt is an 86-yr-old female admitted for a syncopal episode, abnormal CT finding regarding old vs new CVA and failure to thrive. PMHx: chronic abdominal pain, CAD, anxiety, atrial fibrillation on anticoagulation, history of thromboembolism and the popliteal artery, breast cancer, CVA, GERD. Subjective Observations The pt was asleep in bed upon arrival of [employer]ARN MAN and [employer] student . She awoke to tactile and verbal stimuli and was agreeable to swallow evaluation. She was repositioned upright in bed. She reported occasional coughing with oral intake but not consistent. She is edentulous, does not own dentures, and reported mastication as her biggest challenge. Reported by Patient Other Symptoms Coughing Comment Difficulty chewing d/t edentulous status Current Diet Dysphagia mechanical,Thin liquids Baseline Feeding Method Independent in self-feeding Objective Assessment Mental Status Alert,Responsive,Cooperative Oral Integrity WFL Dentition Missing teeth Lip Function Moderate impairment Observation of Lips at Rest Symmetrical Pucker Reduced strength Lip Retraction Reduced range of motion Alternating Pucker/Lip Retraction Reduced range of motion, Incoordination Tongue Function Mild impairment Observations of Tongue at Rest Within normal limits Tongue Protrusion Within normal limits Tongue Lateralization Reduced strength, Incoordination Jaw Function Within normal limits Observations of Jaw at Rest Within normal limits Jaw Opening Within normal limits Jaw Closing Within normal limits Jaw Lateralization Within normal limits Hard/Soft Palate Function Within normal limits Observations of Hard/Soft Palate Within normal limits Gag Reflex Within normal limits Nasality Within normal limits Phonation Within normal limits Respiratory Sufficiency Within normal limits Food and Liquid Trials Position During Assessment Upright (90 degrees) Liquids Trialed Thin Solids Trialed Puree,Dysphagia Mechanical, Mechanical Soft Administration Type Cup consecutive sips,Straw, Self-feeding Oral Impairment Moderately impaired Oral Phase Comments Extensive mastication secondary to edentulous status and lingual and buccal weakness. Pt had difficulty performing lingual sweep resulting in oral residue with dysphagia mechanical and mechanical soft textures that required liquid wash to clear. Pureed textures cleared without difficulty. The pt tended to eat at a rapid rate, taking bites prior to swallowing the previous, requiring verbal and tactile cues to reduce rate. Pharyngeal Impairment Within functional limits Pharyngeal Phase Comments The pt produced mild cough x1 after multiple swallows of coffee. No other overt s/sx of aspiration were observed. Vocal quality remained clear throughout the evaluation. Fatigue/Endurance Mild fatigue Strategies Attempted Other Response/Comments Slowed rate of intake, liquid wash Debord Swallow Protocol No Findings Swallowing Function Oral phase dysphagia Severity of Swallow Impairment Mildly-moderately impaired Contributing Factors to Swallow Reduced oral strength/ Impairment coordination/sensation, Mastication inefficiency, Excessive oral residue Prognosis Good Based on Duration of symptoms/severity Comment The pt's expressive, receptive and cognitive communication skills were sufficient to participate in this evaluation and to follow simple commands . Will monitor and administer cognitive assessment as indicated. Recommendations Instrumental Assessment No Swallowing Treatment Yes Frequency Daily Duration over hospital course Recommended Solids Dysphagia Mechanical Recommended Liquids Thin Safety Precautions/Swallowing Reduce distractions,Remain Recommendations upright (90 degrees) during all oral intake,Needs verbal cues to use recommended strategies,Upright position at least 30 minutes after meals, Small bites and sips when eating,Slow rate; swallow between bites,Alternate liquids and solids,Strict oral care after intake Medication Recommendations As Tolerated Discharge Recommendations long term facility Education Patient/Caregiver Education Described results of evaluation,Patient expressed understanding of evaluation, Patient expressed agreement with goals & treatment plans, Patient requires further education/training Goals Short-term Goals 1. The pt will follow safe swallow strategies with min v/ v cues to reduce risk of aspiration. 2. The pt will perform exercises to improve oral motor strength and coordination and increase ease and safety with oral intake. Long-term Goals 1. The pt will tolerate least restrictive diet to meet her nutrition and hydration needs.
--- NOTE | 2021-07-10 13:17 | CM.DANOTE ---
Patient is an 86 yo female who was admitted on 07/09/21 for Decreased LOC. Pt has MCR and [facility] [employer] for insurance and her PCP is Lizet Vázquez. EMR was reviewed. Per MD, pt with hx of AFIB, CVA, breast CA and admitted for Failure to Thrive and r/o CVA. Pt's EF is 35-40% and to have MRI. PT/OT/ST ordered and pending. Pt was being taken off floor for MRI after meeting with Nursing Tech when SW attempted bedside assessment and then pt's son/DPOA Heath called. SW spoke to Heath and explained role and he confirms that since pt's last admission in August 2020 they had been living in a mobile home trailer but since then had moved into an apt attached to someone's house. Son states that the general dentist/owner of the house and property has dementia and we have been having a really difficult time with their cognition issues and therefore in the process of sort of being evicted and looking for a new place to live. Son actively looking for a new place. Son confirms that pt has a hx of SNF before and preference would be SNF at d/c if recommended and preference is 1) [facility] in [place] [facility] 2) [facility]. CC Liz kindly faxing new referral to [facility] and [facility]. Pt's vaccination record not showing on [facility] website and will need to confirm with pt or son. PASRR completed in anticipation of SNF but SW to follow for PT/OT recommendations. Plan: SW to follow closely for PT/OT to determine if SNF needed and [facility] and [facility] review and confirmation of COVID vaccination status. JOSHUA Bowie Discharge Planning/Care Management CM Discharge Assessment Start: 07/10/21 13:05 Freq: Status: Active Protocol: Document 07/10/21 13:05 BF (Rec: 07/10/21 13:17 [id number]) Discharge Planning Assessment Assigned Motion Picture Set Worker JOSHUA Canales/Assigned Designee Name son Heath Garrido Contact Information [phone] Advance Directives? Yes Advance Directives on File No History Provided By Patient,Family Member,Medical Record Has Patient been admitted in last 30 No days? Comment some ED visits recently Prior Living Arrangements Apartment/Condo Household Members children Type of transporation used prior to Relies on Others admit Independent with ADL's Yes: somewhat Is patient alert and oriented? Yes Needs Assistance With Meal Prep,Toileting,Managing Medications,Home Chores / Shopping Caregiver for Another No DME Already Rented / Owned Bedside Commode Patient/Family Preference Care Home Facility Barriers to Discharge Yes Comment Patient has supportive son, that she lives with but currently in process of getting evicted Discharge Plan Care Home Facility Transportation Arrangement Family if home or facility van if SNF Referrals Initiated Care Home Additional Comment Liz sending referral to [facility] in [place] [facility] and [facility] If patient plan is SNF: Has PASSR been Yes completed? Whiteboard Updated in Patient Room with Yes name and ext. # of Motion Picture Set Worker Review Status In Process Please Provide Date Initial DC 07/10/21 Assessment Was Performed Next Review Type Continued Stay Review
--- NOTE | 2021-07-10 14:14 | CM.DPNOTE ---
Emailed [facility] and faxed referral packet to [facility] per Ally. Received conf. Liz Tomlin CM Assist.
--- NOTE | 2021-07-10 14:39 | DIET.CONS ---
Dietary Consultation Note Admission Date: 07/09/2021 21:54 Assessment: 86y F admitted for decreased LOC referred to nutrition for malnutrition and being edentulous. Pt c complicated social hx. Pt had been living in trailer with son but recently evicted and moved into MIL apartment c son owned by elderly landlord. Per pt, pts son gets EBT monthly to purchase groceries. Pt generally eats two meals daily- pudding c cookies and hamburger from [employer] cut into bite sized pieces. However pt with chronic diarrhea (x5y) leading her to skip days of eating at a time to try to manage as pt has mobility issues. Pt reports cooked tomatoes, potatoes, onions and garlic cause gas pains and diarrhea. Pt does occasionally take Immodium, however, this often leads to constipation. Pt was 250# three years ago, intentionally lost weight to be healthier, however, pt BMI 20.2 (severe for age) with 7.2% unintentional weight loss in 2mo (severe). Pt seen by DESIGN PAINTER assigning her safe diet of Dysphagia Mechanical with extra moisture and thin liquids. Pt does not have teeth and does not have dentures. Ht: 170.18 cm Wt: 58.5 kg (-7.2% in 2mo, severe) BMI: 20.2 (severe for age) UBW: 64kg Last BM: 07/10/21 (07/10/21 03:36) MNA: 6 Timur Score: 14 Nutrition Percent Meal Consumed 100% 07/10/21 13:00 Percent Meal Consumed 75% 07/10/21 10:11 Labs: RBC 4.68 X10^6/uL (4.0-5.2) 07/10/21 05:25 Hgb 14.2 g/dL (12.0-16.0) 07/10/21 05:25 Hct 43.2 % (36-46) 07/10/21 05:25 Creatinine 0.97 mg/dL (0.52-1.04) 07/10/21 10:00 Lactate 1.2 mmol/L (0.7-2.1) 07/09/21 19:08 Nutrition Diagnosis: Severe Acute Protein Calorie Malnutrition r/t food insecurity, inadequate oral intake aeb 7.2% unintentional weight loss in 2mo (severe), BMI 20.2 (severe for age), pt's son receives EBT for groceries, pt often skips meals to manage diarrhea, pt with chronic diarrhea x5y. Interventions: 1. Recc ONS Ensure Enlive bid to support nutrition status. 2. Educated pt on low fiber diet to support digestive distress vs NPO status. 3. Recc medication management of diarrhea and pt avoiding foods which cause digestive distress. Monitoring/Evaluations: POs, ONS tolerance Electronically Signed by: Janette Horta 07/10/21 14:39 Clinical Dietitian [address] [address]
--- NOTE | 2021-07-10 15:35 | OT.IP.EVAL ---
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) Asthma Breast cancer (~2001) CAD (coronary artery disease) Calcified nodule Cerebrovascular accident (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 right middle cerebral artery (04/27/17) Cervical cancer, FIGO stage I Cholelithiasis Chronic back pain Developmental disorder Diarrhea Essential hypertension (02/19/12) Failure to thrive in adult Fibrocystic breast disease GERD (gastroesophageal reflux disease) History of colon polyps (02/19/12) History of left breast cancer (~2008) Hyperlipidemia IBS (irritable bowel syndrome) Measles 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, bilateral Personal history of other malignant neoplasm of skin (02/19/12) 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) Systolic congestive heart failure with reduced left ventricular function, NYHA class 2 (10/26/10) Surgical History (Last Reviewed 07/10/21 @ 04:43 by RADHA Self) Anesthesia Status post arthroscopy Status post biopsy (~2014) Status post breast lumpectomy (~2008) Status post cholecystectomy Status post coronary artery bypass graft Status post hysterectomy (~2009) Occupational Therapy Inpatient Evaluation/Re-Eval M1 PT/OT-IP Prior Functional Status Start: 07/10/21 13:33 Freq: NEEDED Status: Active Protocol: Document 07/10/21 15:11 [facility] (Rec: 07/10/21 15:53 [facility] [id number]) Medical Review Prior Functional Status Medical History Reviewed Yes Communication able to make needs known but needs increase time to respond Mobility and Gait pt stated that she is modified independent with all mobilities and ambulation without AD Activities of Daily Living and IADL's Pt states that her son helps her with everything, however pt states that she is able to make a sandwich for herself as well. Social History Household Members children Living Arrangements Apartment/Condo Number of Floors (Floors) One Floor Number of Stairs To Enter/Railing? 6 steps to enter with R rail Home Equipment Straight Cane Additional Social History Comment pt stated that she sponge bathes and her son assists her with that does not have a working toilet and uses a bedside commode Pt states that someone is with her at all times, however not sure if pt is a realiable historian. Pt medical chart states has CVA in the past. M2 OT-IP Current Condition Start: 07/10/21 15:35 Freq: Status: Active Protocol: Document 07/10/21 15:11 [facility] (Rec: 07/10/21 15:53 [facility] [id number]) Occupational Therapy Current Condition Current Condition Evaluation Date 07/10/21 Treatment Diagnosis Syncope Diagnosis Onset Date 07/09/21 M3 OT- IP Subjective and Pain Start: 07/10/21 15:35 Freq: Status: Active Protocol: Document 07/10/21 15:11 [facility] (Rec: 07/10/21 15:53 [facility] [id number]) OT- Subjective Occupational Therapy Visit Type Type Initial Evaluation Visit Start Time 15:11 Visit Stop Time 15:35 Total Visit Minutes 24 Occupational Therapy Visit Comments Patient Comments Pt wanting to get back to bed. Patient/Caregiver Goals TO go home OT Pain Assessment Pain When Pain Assessed At Rest Pain Present Pain Present Denied Pain M4 OT- IP ADL's Start: 07/10/21 15:35 Freq: Status: Active Protocol: Document 07/10/21 15:11 [facility] (Rec: 07/10/21 15:53 [facility] [id number]) OT [id number] Comments OT Self-Feeding Comments NOt at meal time. OT ADL-Grooming Comments OT Grooming Comments Not performed. OT ADL-Oral Care Comments Oral Care Comments Not performed. OT ADL-Dressing General Eval Lower Body Dressing Ability Standby Assistance Comments OT Dressing Comments Pt able to percy/doff her socks while supine in bed. Pt states at home her son helps her when she has difficulty to care for herself. OT ADL-Toileting Comments OT Toileting Comments Pt not having to go. OT ADL-Bathing Comments OT Bathing Comments NOt performed. M5 OT- IP IADL's Start: 07/10/21 15:35 Freq: Status: Active Protocol: Document 07/10/21 15:11 [facility] (Rec: 07/10/21 15:53 [facility] [id number]) OT-Instrumental Activities of Daily Living Deficits IADL Deficits Identified Deficits Home Safety Awareness Awareness of Need for Assistance at Home Decreased Awareness Ability to Problem Solve Emergency Unable to Problem Solve Situations Home Safety Comments Pt having difficulty with safety awareness and has confusion and best if going home to have 24/7 assist for all needs. Medication Management Medication Management Caregiver Administers Money Management Money Management Caregiver Provides Assistance Maintenance Construction Helper Maintenance Construction Helper Caregiver Provides Assist Driving Driving Caregiver Provides Assist M6 OT- IP Functional Cognition Start: 07/10/21 15:35 Freq: Status: Active Protocol: Document 07/10/21 15:11 [facility] (Rec: 07/10/21 15:53 [facility] [id number]) Cognitive Factors Limiting Selfcare Function Cognitive Ability Level of Alertness Alert,Confusional State Patient Orientation Name Attention Span Ability Capable of Focused Attention, Capable of Sustained Attention Ability to Follow Commands Able to Follow One Step Commands Safety Awareness Underestimates Need for Assistance Cognitive Comments Cognitive Assessment Comments Pt needing step by step cues for FWW safety, a bit impulsive but able to follow simple commands. OT- Vision and Hearing OT- Hearing Assessment OT- Hearing Assessment WFL OT- Vision Assessment Visual Acuity Glasses For Reading Vision Assessment Comments Pt able to read the clock accurately. M7 OT- IP Mobility and Balance Start: 07/10/21 15:35 Freq: Status: Active Protocol: Document 07/10/21 15:11 [facility] (Rec: 07/10/21 15:53 [facility] [id number]) OT- Bed Mobility Assessment Sit to Supine Sit to Supine Assist Contact Guard Assistance OT-Transfer Assessment Sit to and From Stand Sit to and from Stand Minimal Assistance Transfers Transfer Ability Minimal Assistance,1 Person Assistance Technique Transfer Destination Bed,Chair Transfer Technique Stand Step Pivot Devices Transfer Assistive Devices Gait Belt,Front Wheeled Walker Comments Mobility Comments BP in recliner 128/64, after transfer 136/80, and in supine 137/66, pt complaining of being woozy the whole time O2 reading in the 80's however did not appear to be registering correctly as pt has very cold hands. At the end of the session able to get a reading of 93% on RA. Nursing aid notified on pt's being woozy and initially getting a low O2 reading as pt's nurse on break. OT- Balance Assessment Sitting Balance and Reactions Static Sitting Balance Ability Good Standing Balance and Reactions Static Standing Balance Ability Fair Dynamic Standing Balance Ability Poor M8 OT- IP Objective Assessments Start: 07/10/21 15:35 Freq: Status: Active Protocol: Document 07/10/21 15:11 [facility] (Rec: 07/10/21 15:53 [facility] [id number]) OT Gross Range of Motion Upper Extremity Range of Motion Assessment Bilaterally Impaired OT Strength Upper Extremity Strength Assessment Bilaterally Impaired OT-Muscle Tone Assessment Muscle Tone WNL Yes M9 OT- IP Assessment and Plan Start: 07/10/21 15:35 Freq: Status: Active Protocol: Document 07/10/21 15:11 [facility] (Rec: 07/10/21 15:53 [facility] [id number]) OT Summary Assessment and Plan Potential Rehabilitation Potential Good Analytic Complexity at Evaluation Moderate Summary OT Impairments Range of Motion,Strength, Balance,Functional Cognition, Functional Mobility,Self- Feeding,Grooming,Dressing, Toileting,Bathing,Toilet Transfers,Shower Transfers, Activity Tolerance Progress Towards Goals Slow Progress due to Medical Issues,Slow Progress due to Activity Tolerance,Slow Progress due to Cognition Assessment Summary Pt MOD complexity main barriers are decreased safety awareness, dynamic balance, activity tolerance, and now needing use of FWW for mobility needs. Pt would benefit from skilled rehab to improve her overall strength, endurance for all Adl and mobility needs. Goals Grooming Goal Standby Assistance Dressing Goal Standby Assistance Toileting Goal Standby Assistance Bathing Goal Minimal Assistance Toilet Transfer Goal Standby Assistance Shower Transfer Goal Standby Assistance Days to Meet Goals 20 Frequency of Treatment Frequency Of Treatment Once a Day Treatment Plan OT Treatment Plan ADL Training,Functional Cognition Training,Functional Mobility,Patient/Family Education,Discharge Planning Other Treatment Recommendations and Next Transfer to [facility] with [facility] Treatment Focus Discharge Recommendations OT Discharge Recommendations SNF Rehab Transportation Needs at Discharge Wheelchair/Cabulance
--- NOTE | 2021-07-10 15:37 | PM.PN.1 ---
Subjective Subjective Date Patient Seen: 07/10/21 Interval history: BRIEF HPI THIS IS A 86-YEAR-OLD FEMALE ADMITTED TO THE HOSPITAL AFTER A SYNCOPAL EPISODE. HAS A PAST MEDICAL HISTORY SIGNIFICANT FOR CHRONIC SYSTOLIC HEART FAILURE. LAST EJECTION FRACTION IN 2019 WAS 35-40%. TODAY PATIENT WITH SOME UNDERLYING DEMENTIA HOWEVER ABLE TO ANSWER QUESTION APPROPRIATELY. STATED THAT SHE WAS SITTING AND ALL OF A SUDDEN WAS HAVING DIFFICULTY RESPONDING TO HER SON CALLING HER NAME. DENIES ANY CHEST PAIN. NO CHEST PRESSURE. NO CHEST PALPITATIONS. NO NAUSEA. NO VOMITING. Exam Vital Signs (past 8 hours): - 07/10/21 08:10 07/10/21 09:48 07/10/21 09:54 Temperature 98.0 F 98 F Pulse Rate 75 75 75 Respiratory Rate 17 16 Blood Pressure 153/84 H 154/84 H 153/84 H Pulse Oximetry 100 95 07/10/21 11:35 Temperature 97.2 F L Pulse Rate 53 L Respiratory Rate 18 Blood Pressure 133/61 Pulse Oximetry 100 Oxygen Delivery Method Room Air Oxygen Flow Rate 0 Narrative Exam Narrative: NO ACUTE DISTRESS. PATIENT IS ALERT ORIENTED X2 HEAD ATRAUMATIC AND NORMOCEPHALIC NECK : SUPPLE WITHOUT ADENOPATHY NO CAROTID BRUITS EYE: EOMI, PERRLA, NORMAL CONJUNCTIVA; NO JAUNDICE CHEST: REGULAR RATE. NO RUBS. PMI IS NON DISPLACED. 1/6 SYSTOLIC MURMUR APPRECIATED PULMONARY: DECREASED BS OVER THE BASES. MILD BIBASILAR CRACKLES NOTED; NO WHEEZING ABDOMEN: SOFT. NONTENDER. NONDISTENDED. BOWEL SOUNDS ARE PRESENT IN ALL 4 QUADRANTS. NO MASS. EXTREMITIES: +NONPITTING BILATERAL LOWER EXTREMITY CHRONIC EDEMA.. NO CYANOSIS OR CLUBBING NOTED. NEURO: CRANIAL NERVES 2-12 GROSSLY INTACT. NO FOCAL NEUROLOGICAL DEFICIT NOTED. MSK: POOR MUSCULATURE. NO SIGN OF INJURY. SKIN: AGE ASSOCIATED POOR SKIN TURGOR. NO GROSS LESIONS : NORMAL EXTERNAL GENITALIA. NO ABNORMAL DRAINAGE PSYCH : APPROPRIATE MOOD AND AFFECT. NO PSYCHOSIS Objective Labs Result Diagrams: 07/10/21 05:07/10/21 10:00 Labs: Laboratory Results - last 24 hr 07/09/21 07/09/21 07/09/21 19:08 19:08 19:08 WBC 7.2 RBC 4.69 Hgb 14.3 Hct 43.2 MCV 92.0 MCH 30.5 MCHC 33.1 RDW 14.4 Plt Count 226 Neut % (Auto) 71.0 Lymph % (Auto) 19.7 L Beauregard % (Auto) 7.1 Eos % (Auto) 1.0 L Baso % (Auto) 1.2 Neut # (Auto) 5100 Lymph # (Auto) 1400 Bea[place]gard # (Auto) 500 Eos # (Auto) 100 Baso # (Auto) 100 Total Counted Seg Neutrophils % Band Neutrophils % Lymphocytes % (Manual) Monocytes % (Manual) Eosinophils % (Manual) Neutrophils # (Manual) RBC Morphology Anisocytosis Sodium 140 Potassium 4.2 Chloride 102 Carbon Dioxide 27 BUN 24 H Creatinine 1.06 H Estimated GFR 52 L BUN/Creatinine Ratio 22.6 H Glucose 96 Lactate 1.2 Calcium 9.8 Magnesium Total Bilirubin 0.8 AST 25 ALT 12 Alkaline Phosphatase 146 H Total Creatine Kinase < 20 L CK-MB (CK-2) TNP CK-MB (CK-2) Rel Index TNP Troponin I < 0.012 Total Protein 8.2 Albumin 4.4 Globulin 3.8 Albumin/Globulin Ratio 1.2 Procalcitonin 0.10 TSH Prolactin 34.9 H Salicylates < 1.0 Acetaminophen < 10 Ethyl Alcohol < 10 Chlamy pneumoniae PCR Adenovirus (PCR) B. pertussis DNA (PCR) B.parapertussis DNA PCR Coronavirus OC43 (PCR) Coronavirus HKU1 (PCR) Coronavirus 229E (PCR) SARS-CoV-2 (PCR) Coronavirus NL63 (PCR) Human Metapneumovir PCR Influenza Type A (PCR) Influenza Type B (PCR) M. pneumoniae (PCR) Parainfluenza 1 (PCR) Parainfluenza 2 (PCR) Parainfluenza 3 (PCR) Parainfluenza 4 (PCR) RSV (PCR) Entero/Rhino (PCR) 07/09/21 07/09/21 07/10/21 19:08 19:28 05:25 WBC 6.1 RBC 4.68 Hgb 14.2 Hct 43.2 MCV 92.4 MCH 30.3 MCHC 32.7 RDW 14.5 Plt Count 164 Neut % (Auto) Not Reportable Lymph % (Auto) Not Reportable Beauregard % (Auto) Not Reportable Eos % (Auto) Not Reportable Baso % (Auto) Not Reportable Neut # (Auto) Lymph # (Auto) Not Reportable Beauregard # (Auto) Not Reportable Eos # (Auto) Baso # (Auto) Not Reportable Total Counted 100 Seg Neutrophils % 78.0 H Band Neutrophils % 1.0 L Lymphocytes % (Manual) 10.0 L Monocytes % (Manual) 9.0 Eosinophils % (Manual) 2.0 Neutrophils # (Manual) 4819 RBC Morphology See below Anisocytosis 1+ H Sodium Potassium Chloride Carbon Dioxide BUN Creatinine Estimated GFR BUN/Creatinine Ratio Glucose Lactate Calcium Magnesium Total Bilirubin AST ALT Alkaline Phosphatase Total Creatine Kinase CK-MB (CK-2) CK-MB (CK-2) Rel Index Troponin I Total Protein Albumin Globulin Albumin/Globulin Ratio Procalcitonin TSH 3.05 Prolactin Salicylates Acetaminophen Ethyl Alcohol Chlamy pneumoniae PCR Not detected Adenovirus (PCR) Not detected B. pertussis DNA (PCR) Not detected B.parapertussis DNA PCR Not detected Coronavirus OC43 (PCR) Not detected Coronavirus HKU1 (PCR) Not detected Coronavirus 229E (PCR) Not detected SARS-CoV-2 (PCR) Not detected Coronavirus NL63 (PCR) Not detected Human Metapneumovir PCR Not detected Influenza Type A (PCR) Not detected Influenza Type B (PCR) Not detected M. pneumoniae (PCR) Not detected Parainfluenza 1 (PCR) Not detected Parainfluenza 2 (PCR) Not detected Parainfluenza 3 (PCR) Not detected Parainfluenza 4 (PCR) Not detected RSV (PCR) Not detected Entero/Rhino (PCR) Not detected 07/10/21 10:00 WBC RBC Hgb Hct MCV MCH MCHC RDW Plt Count Neut % (Auto) Lymph % (Auto) Beauregard % (Auto) Eos % (Auto) Baso % (Auto) Neut # (Auto) Lymph # (Auto) Beauregard # (Auto) Eos # (Auto) Baso # (Auto) Total Counted Seg Neutrophils % Band Neutrophils % Lymphocytes % (Manual) Monocytes % (Manual) Eosinophils % (Manual) Neutrophils # (Manual) RBC Morphology Anisocytosis Sodium 139 Potassium 3.6 Chloride 106 Carbon Dioxide 27 BUN 19 H Creatinine 0.97 Estimated GFR 58 L BUN/Creatinine Ratio 19.6 Glucose 104 Lactate Calcium 9.1 Magnesium 1.8 Total Bilirubin AST ALT Alkaline Phosphatase Total Creatine Kinase CK-MB (CK-2) CK-MB (CK-2) Rel Index Troponin I Total Protein Albumin Globulin Albumin/Globulin Ratio Procalcitonin TSH Prolactin Salicylates Acetaminophen Ethyl Alcohol Chlamy pneumoniae PCR Adenovirus (PCR) B. pertussis DNA (PCR) B.parapertussis DNA PCR Coronavirus OC43 (PCR) Coronavirus HKU1 (PCR) Coronavirus 229E (PCR) SARS-CoV-2 (PCR) Coronavirus NL63 (PCR) Human Metapneumovir PCR Influenza Type A (PCR) Influenza Type B (PCR) M. 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) Asthma Breast cancer (~2001) CAD (coronary artery disease) Calcified nodule Cerebrovascular accident (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 right middle cerebral artery (04/27/17) Cervical cancer, FIGO stage I Cholelithiasis Chronic back pain Developmental disorder Diarrhea Essential hypertension (02/19/12) Failure to thrive in adult Fibrocystic breast disease GERD (gastroesophageal reflux disease) History of colon polyps (02/19/12) History of left breast cancer (~2008) Hyperlipidemia IBS (irritable bowel syndrome) Measles 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, bilateral Personal history of other malignant neoplasm of skin (02/19/12) 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 RESOLVED. CAUSE IS UNCLEAR. CHRONIC SYSTOLIC HEART FAILURE. ECHOCARDIOGRAM WITH SEVERE MR AND EF ABOUT 35-40% MITRAL VALVE REGURGITATION. FOR ECHO PHYSICAL DEBILITY/DECONDITIONING. MULTIFACTORIAL ATRIAL FIBRILLATION PER HISTORY ELIQUIS COAGULOPATHY HYPERLIPIDEMIA PER HISTORY ELEVATED PROLACTIN LEVEL. PLAN PATIENT HAD AN MRI WHICH FAILED TO SHOW ANY ACUTE CVA SOME CHRONIC FINDINGS NOTED PRESENT IN PRIOR STUDIES ECHOCARDIOGRAM WITH AN EF OF 35-40%. SIGNIFICANT WALL MOTION ABNORMALITY ALSO APPRECIATED. SIGNIFICANT MITRAL VALVE REGURG ALSO APPRECIATED THIS WILL NEED TO BE FOLLOWED OUTPATIENT WITH CARDIOLOGY IF INDICATED. URINALYSIS NOT SHOWING ANY SIGN OF SIGNIFICANT INFECTIOUS PROCESS CHEST X-RAY STABLE WELL IN THE MEANWHILE, WITH THERAPY TEAM TO ASSESS AND TREAT INDICATED PATIENT TO STAY ON TELEMETRY AT ALL TIMES FALL AND ASPIRATION TO BE MAINTAINED AT ALL TIMES PHYSICAL THERAPY AND OCCUPATIONAL THERAPY TEAM TO EVALUATE AND TREAT INDICATED ADDITIONAL MANAGEMENT PER CLINICAL COURSE POSSIBLE DISCHARGE IN THE NEXT 24-48 HOURS IF CLINICALLY STABLE Time Spent With Patient Critical Care time: I spent a total of [] minutes of critical care time on this patient's care today; this time is exclusive of procedural time. Quality Stroke Symptom Onset Unknown: Yes VTE Deep Vein Thrombosis/Pulmonary Embolism Present on Admission: No
[2021-07-10 20:48] LABS: Acinetobacter baumannii Not Detected (Not Detect); Candida albicans Not Detected (Not Detect); Candida glabrata Not Detected (Not Detect); Candida krusei Not Detected (Not Detect); Candida parapsilosis Not Detected (Not Detect); Candida tropicalis Not Detected (Not Detect); E. coli Not Detected (Not Detect); Enterobacter cloacae complex Not Detected (Not Detect); Enterobacteriaceae species Not Detected (Not Detect); Enterococcus species Not Detected (Not Detect); Haemophilus influenzae Not Detected (Not Detect); Listeria monocytogenes Not Detected (Not Detect); Methicillin-resistant gene Detected (Not Detect); Neisseria meningitidis Not Detected (Not Detect); Proteus species Not Detected (Not Detect); Pseudomonas aeruginosa Not Detected (Not Detect); Serratia marcescens Not Detected (Not Detect); Staphylococcus species Detected (Not Detect); Streptococcus agalactiae (Gr B Not Detected (Not Detect); Streptococcus pneumonia Not Detected (Not Detect); Streptococcus pyogenes (Gr A) Not Detected (Not Detect); Streptococcus species Not Detected (Not Detect)
[2021-07-10] MEDS: ATORVASTATIN 20 MG TABLET 40 MG PO (21:07)
[2021-07-11] VITALS (11 sets, daily range): BP systolic 134–175; BP diastolic 69–88; PULSE 66–80; RESP 17–20; TEMP 36.1–37.1; O2SAT 93–99
[2021-07-11 01:06] LABS: Appearance Urine UA CLEAR; Bilirubin Urine UA NEGATIVE (NEGATIVE); Color Urine UA YELLOW; Glucose Urine UA NEGATIVE (Negative); Ketones Urine UA NEGATIVE (NEGATIVE); Leukocyte Esterase Urine UA 3+ (NEGATIVE); Nitrite Urine UA NEGATIVE (Negative); Occult Blood Urine UA 3+ (Negative); Protein Urine UA NEGATIVE (Negative); Specific Gravity Urine UA <=1.005 (1.000-1.035); Urobilinogen Urine UA 0.2 E.U./dL (0.2)
[2021-07-11 01:15] LABS: pH Urine UA 5.5 (4.5-8.0)
[2021-07-11 01:52] LABS: RBC Urine 1-5/HPF (0-5/HPF); Squamous Epithelial Cell Urine 0-1 /HPF (0-5/HPF); WBC Urine 30-100/HPF (0-5/HPF)
[2021-07-11 01:53] LABS: Bacteria Urine Few (2-10); Culture Indicated Urine Specimen Cultured
[2021-07-11] MEDS: SODIUM CHLORIDE 0.9% 1,000 ML 100 ML IV (02:39)
[2021-07-11] MEDS: GABAPENTIN 100 MG CAPSULE PO ×3 (05:00→22:59)
[2021-07-11 06:30] LABS: Hemoglobin 12.4 g/dL (12.0-16.0); Red Blood Cell Count 4.16 X10^6/uL (4.0-5.2); White Blood Cell Count 9.4 X10^3/uL (4.5-11.0)
[2021-07-11 06:31] LABS: Add Manual Diff / Slide Review YES; Hematocrit 38.4 % (36-46); Mean Corpuscular HGB Conc 32.2 % (30-36); Mean Corpuscular Hemoglobin 29.7 PG (26-34); Mean Corpuscular Volume 92.3 fL (80-100); Platelet Count 136 X10^3/uL (150-400); Red Cell Distribution Width 14.9 % (11.6-14.8)
[2021-07-11 06:32] LABS: BUN Creatinine Ratio 20.3 (6-22); Blood Urea Nitrogen 16 mg/dL (7-17); Calcium 8.5 mg/dL (8.4-10.2); Carbon Dioxide 24 mmol/L (22-32); Chloride 109 mmol/L (98-107); Estimated Glomerular Filt Rate > 60 mL/min (>60); Glucose 91 mg/dL (80-110); HEMOLYSIS 24 (0-50); Magnesium 1.8 mg/dL (1.6-2.3); Potassium 3.8 mmol/L (3.4-5.1); Sodium 141 mmol/L (137-145)
[2021-07-11 07:25] LABS: Neutrophils Absolute Manual 6110 /uL (3000-5900); Total Cells Counted 100
[2021-07-11 07:32] LABS: Anisocytosis 1+
[2021-07-11] MEDS: LOSARTAN 50 MG TABLET PO (08:43)
[2021-07-11] MEDS: PANTOPRAZOLE DR 40 MG TABLET PO (08:43)
[2021-07-11] MEDS: METOPROLOL IR 25 MG TABLET 12.5 MG PO (08:43)
[2021-07-11] MEDS: APIXABAN 5 MG TABLET PO ×2 (08:43→20:32)
[2021-07-11] MEDS: TORSEMIDE 10 MG TABLET 20 MG PO (09:25)
--- NOTE | 2021-07-11 10:49 | OT.IP.TRT ---
Occupational Therapy Treatment Note M2 OT-IP Current Condition Start: 07/10/21 15:35 Freq: Status: Active Protocol: Document 07/10/21 15:11 [facility] (Rec: 07/10/21 15:53 [facility] [id number]) Occupational Therapy Current Condition Current Condition Evaluation Date 07/10/21 Treatment Diagnosis Syncope Diagnosis Onset Date 07/09/21 M3 OT- IP Subjective and Pain Start: 07/10/21 15:35 Freq: Status: Active Protocol: Document 07/11/21 10:25 [facility] (Rec: 07/11/21 12:32 [facility] [id number]) OT- Subjective Occupational Therapy Visit Type Type Treatment Note Visit Start Time 10:25 Visit Stop Time 10:49 Total Visit Minutes 24 Occupational Therapy Visit Comments Patient Comments Pt agreed to work with OT Patient/Caregiver Goals Pt insistent that she is going home and adamantly refusing SNF. OT Pain Assessment Pain When Pain Assessed At Rest Pain Present Pain Present Denied Pain M4 OT- IP ADL's Start: 07/10/21 15:35 Freq: Status: Active Protocol: Document 07/11/21 10:25 [facility] (Rec: 07/11/21 12:32 [facility] [id number]) OT [id number] Comments OT Self-Feeding Comments NOt at meal time. OT ADL-Grooming Comments OT Grooming Comments pt refused OT ADL-Oral Care Comments Oral Care Comments Pt refused OT ADL-Dressing General Eval Lower Body Dressing Ability Standby Assistance Comments OT Dressing Comments Pt able to percy/doff her socks . OT ADL-Toileting Comments OT Toileting Comments Pt not needing to go to the bathroom. OT ADL-Bathing Comments OT Bathing Comments Pt refusing. M5 OT- IP IADL's Start: 07/10/21 15:35 Freq: Status: Active Protocol: Document 07/10/21 15:11 [facility] (Rec: 07/10/21 15:53 [facility] [id number]) OT-Instrumental Activities of Daily Living Deficits IADL Deficits Identified Deficits Home Safety Awareness Awareness of Need for Assistance at Home Decreased Awareness Ability to Problem Solve Emergency Unable to Problem Solve Situations Home Safety Comments Pt having difficulty with safety awareness and has confusion and best if going home to have 24/7 assist for all needs. Medication Management Medication Management Caregiver Administers Money Management Money Management Caregiver Provides Assistance Principal Cyber Engineer Principal Cyber Engineer Caregiver Provides Assist Driving Driving Caregiver Provides Assist M6 OT- IP Functional Cognition Start: 07/10/21 15:35 Freq: Status: Active Protocol: Document 07/11/21 10:25 [facility] (Rec: 07/11/21 12:32 [facility] [id number]) Cognitive Factors Limiting Selfcare Function Cognitive Ability Level of Alertness Alert Patient Orientation Name Attention Span Ability Capable of Focused Attention, Capable of Sustained Attention Ability to Follow Commands Able to Follow One Step Commands Memory Description Short Term Impaired,Working Impaired Safety Awareness Underestimates Need for Assistance Cognitive Tests SLUMS Initiated SLUMS and pt wanting to stop as having trouble, pt scoring so far 4/16 out of 30 . Pt however able to answer home safety situations accurately. Cognitive Comments Cognitive Assessment Comments Pt is impulsive, poor short term memory and safety awareness and would benefit from / assist for all needs . Pt is a high fall risk. M7 OT- IP Mobility and Balance Start: 07/10/21 15:35 Freq: Status: Active Protocol: Document 07/11/21 10:25 [facility] (Rec: 07/11/21 12:32 [facility] [id number]) OT- Bed Mobility Assessment Supine to Sit Supine to Sit Assist Standby Assistance Sit to Supine Sit to Supine Assist Standby Assistance OT-Transfer Assessment Sit to and From Stand Sit to and from Stand Minimal Assistance Technique Transfer Destination Bed Transfer Technique Stand Step Pivot Devices Transfer Assistive Devices Gait Belt,Straight Cane Comments Mobility Comments Pt insistent that she is safe to use a SPC at home, therefore tried and pt unsteady and also using the IV pole to hang onto for her balance. Pt would benefit from getting a FWW for mobiltiy needs. OT- Balance Assessment Sitting Balance and Reactions Static Sitting Balance Ability Good Dynamic Sitting Balance Ability Good Standing Balance and Reactions Static Standing Balance Ability Fair Dynamic Standing Balance Ability Poor M8 OT- IP Objective Assessments Start: 07/10/21 15:35 Freq: Status: Active Protocol: Document 07/10/21 15:11 [facility] (Rec: 07/10/21 15:53 [facility] [id number]) OT Gross Range of Motion Upper Extremity Range of Motion Assessment Bilaterally Impaired OT Strength Upper Extremity Strength Assessment Bilaterally Impaired OT-Muscle Tone Assessment Muscle Tone WNL Yes M9 OT- IP Assessment and Plan Start: 07/10/21 15:35 Freq: Status: Active Protocol: Document 07/11/21 10:25 [facility] (Rec: 07/11/21 12:32 [facility] [id number]) OT Summary Assessment and Plan Potential Rehabilitation Potential Good Analytic Complexity at Evaluation Moderate Summary OT Impairments Range of Motion,Strength, Balance,Functional Cognition, Functional Mobility,Self- Feeding,Grooming,Dressing, Toileting,Bathing,Toilet Transfers,Shower Transfers, Activity Tolerance Progress Towards Goals Slow Progress due to Activity Tolerance,Slow Progress due to Cognition Assessment Summary Pt is very insistent on going home. Pt is still a bit unsteady on her feet and needing assist for balance, safety, and if truly going home will need 24/7 assist for all needs. Goals Grooming Goal Standby Assistance Dressing Goal Standby Assistance Toileting Goal Standby Assistance Bathing Goal Minimal Assistance Toilet Transfer Goal Standby Assistance Shower Transfer Goal Standby Assistance Days to Meet Goals 19 Frequency of Treatment Frequency Of Treatment Once a Day Treatment Plan OT Treatment Plan ADL Training,Functional Cognition Training,Functional Mobility,Patient/Family Education,Discharge Planning Other Treatment Recommendations and Next shower Treatment Focus Discharge Recommendations OT Discharge Recommendations Home with 24/7 Assist Available,Home Health,SNF Rehab,Home vs SNF Transportation Needs at Discharge Private Vehicle,Wheelchair/ Cabulance
--- NOTE | 2021-07-11 11:06 | PT-IP ANOTE ---
Pt adamantly refused PT today stating she is waiting for her son to pick her up and take her home. Not agreeable to mobilize or assess safety and refusing SNF.
--- NOTE | 2021-07-11 13:42 | ST.IPDYTX ---
Visit Care Team Role Provider Type Lizet Vázquez MD Primary Care Provider Physician Specialty: Family Practice Address: [address] [place] [address], [id number] Phone: Fax: Email: .[employer] Joni Pacheco DO Emergency Provider Physician Specialty: Emergency Medicine Address: [address] [place] [address], [id number] Email: [email or web address] Self Admit Provider Physician Attending Provider Referring Provider Specialty: Internal Medicine Address: [address] [place] [address], [id number] Email: [email or web address] SUPERVISOR [employer]ORCY[employer] REPA[employer]OP Dysphagia Treatment SUPERVISOR [employer]OR[employer] REPA[employer]OP Dysphagia Treatment Start: 07/10/21 11:33 Freq: Status: Active Protocol: Document 07/11/21 13:34 [facility] (Rec: 07/11/21 13:38 [facility] [id number]) Dysphagia Treatment Session Time Visit Start Time 12:15 Visit Stop Time 12:30 Total Visit Minutes 15 Setting Assessment Location Acute Care Visit Type Note Type Treatment Note Patient Information Identification Type Name,ID Wristband Subjective Observations Pt was seated upright in bed with noon meal of pureed turkey, mashed potatoes, and yogurt in front of her when SUPERVISOR MOTORCYCLE REPAIR SHOP arrived. Treatment Liquids Trialed Thin Solids Trialed Dysphagia Mechanical Administration Type Tea Spoon,Straw,Self-Feeding Oral Strategies Upright at 90 degrees Pharyngeal Strategies Small Bites and Sips Treatment Activities Observed pt eat noon meal of pureed turkey, mashed potatoes , and yogurt. Provided reminders to use strategies. Assessment Patient Response to Treatment Good Assessment of Improvement The pt was observed to take large bites, talk with her mouth full, and had anterior loss of bolus while talking and placing large boluses in her mouth. Despite lack of safe swallow strategies when eating independently, pt exhibited no overt signs or symptoms of aspiration. When given reminder to eat slowly and take smaller bites, pt implemented these strategies immediately and maintained them for several minutes before requiring an additional reminder. Difficulty with remembering to use strategies is likely related to pt's reduced cognition, which OT is monitoring. Recommend discharge from speech therapy as pt is safely tolerating least restrictive diet to meet her nutrition and hydration needs. Recommend distant supervision during meals to provide reminders to use strategies. Diet Recommendations Recommendations Continue Current Diet Liquids Order Thin Diet Order Dysphagia Mechanical Medication Recommendations As Tolerated Additional Dietary Needs Reminders to Use Strategies Aspiration Precautions Recommended Precautions Upright at 90 Degrees,Small Bites/Sips,Check for Pocketing Treatment Plan Appropriate for Continued Therapy No Therapy Recommendations Discharge from speech therapy as pt is safely tolerating least restrictive diet to meet her nutrition and hydration needs. Pt will continue to benefit from reminders to use strategies, but safely tolerates her current diet and will likely continue to require reminders due to cognitive impairment. Dysphagia Goals The pt will safely tolerate least restrictive diet to meet her nutrition and hydration needs.
--- NOTE | 2021-07-11 13:45 | PT-IP ANOTE ---
Attempted to see pt at 13:45, pt refused stating she was taking a nap and did not want to transfer back to bed. Will attempt in AM.
--- NOTE | 2021-07-11 15:36 | CM.DPNOTE ---
Addendum entered by JOSHUA Marrero 07/13/21 08:58: DC Note late Entry: Patient discharged yesterday 07.12.21 home w/son Heath per patient and family's wishes. Due to triage needs, unable to discuss HH services w/family as initially intended. According to conversation wRN yesterday, patient/family denied needs from this ELECTRICIAN ELEVATOR MAINTENANCE SERENA Original Note: DCP Note Patient discussed in multidisciplinary rounds this morning; recommendation is for SNF upon DC Met w/patient to review DC options and recs for SNF; patient pleasant, however, adamantly refusing SNF this morning Placed call to son Heath, discussed DC today or tomorrow; son can take patient home tomorrow, plans to visit this evening Plan: DC expected tomorrow, home w/son. Will discuss HH services w/family before DC SERENA
--- NOTE | 2021-07-11 16:02 | PC.NURSE ---
At 1500 Pt was found walking to the door of their room and had pulled their IV out and had blood everywhere. Pt stated she thought something was wrong w/ her kidneys and seemed very anxious and confused. Pt said she didn't know what to do and panicked and forgot about the call light. She states she had sudden onset of confusion and dizziness. And doesn't know what happened. We cleaned the Pt and put her in bed with alarm. she is reoriented to her call light and says she is feeling better. Informed Dr. Valenzuela and he gave no new orders and said he does not want to reestablish IV access at this time.
--- NOTE | 2021-07-11 18:00 | PM.PN.1 ---
Subjective Subjective Date Patient Seen: 07/11/21 Interval history: BRIEF HPI ?THIS IS A 86-YEAR-OLD FEMALE ADMITTED TO THE HOSPITAL AFTER A SYNCOPAL EPISODE. ? HAS A PAST MEDICAL HISTORY? SIGNIFICANT FOR CHRONIC SYSTOLIC HEART FAILURE.? LAST EJECTION FRACTION IN 2019 WAS 35-40%. ? TODAY ?PATIENT WITH SOME UNDERLYING DEMENTIA HOWEVER ABLE TO ANSWER QUESTION APPROPRIATELY. ?NO CHEST PAIN AND NO CHEST PRESSURE.? DENIED INCREASING SOB/YANG BM REPORTED ? NO NAUSEA.? NO VOMITING. Exam Vital Signs (past 8 hours): - 07/11/21 13:10 07/11/21 15:00 Temperature 97.4 F L Pulse Rate 72 Respiratory Rate 18 Blood Pressure 148/70 H Pulse Oximetry 99 97 Oxygen Delivery Method Room Air Oxygen Flow Rate 0 Narrative Exam Narrative: NO ACUTE DISTRESS.? PATIENT IS ALERT ORIENTED X2 HEAD ATRAUMATIC AND NORMOCEPHALIC NECK : SUPPLE WITHOUT ADENOPATHY NO CAROTID BRUITS EYE:? EOMI, PERRLA, NORMAL CONJUNCTIVA; NO JAUNDICE CHEST:? REGULAR RATE.? ? NO RUBS.? PMI IS NON DISPLACED.? ? 1/6 SYSTOLIC MURMUR APPRECIATED PULMONARY:? DECREASED BS OVER THE BASES.? MILD BIBASILAR CRACKLES NOTED; NO WHEEZING ABDOMEN:? SOFT.? NONTENDER.? NONDISTENDED.? BOWEL SOUNDS ARE PRESENT IN ALL 4 QUADRANTS.? NO MASS. EXTREMITIES:? +NONPITTING BILATERAL LOWER EXTREMITY CHRONIC EDEMA..? NO CYANOSIS OR CLUBBING NOTED. NEURO:? CRANIAL NERVES 2-12 GROSSLY INTACT. NO FOCAL NEUROLOGICAL DEFICIT NOTED. MSK: ? POOR MUSCULATURE.? NO SIGN OF INJURY. SKIN: ? AGE ASSOCIATED POOR SKIN TURGOR.? NO GROSS LESIONS :? NORMAL EXTERNAL GENITALIA. NO ABNORMAL DRAINAGE PSYCH :? APPROPRIATE MOOD AND AFFECT.? NO PSYCHOSIS Objective Labs Result Diagrams: 07/11/21 05:00 07/11/21 05:00 Labs: Laboratory Results - last 24 hr 07/10/21 07/11/21 07/11/21 19:31 00:25 05:00 WBC 9.4 D RBC 4.16 Hgb 12.4 Hct 38.4 MCV 92.3 MCH 29.7 MCHC 32.2 RDW 14.9 H Plt Count 136 L Neut % (Auto) Not Reportable Lymph % (Auto) Not Reportable Weakley % (Auto) Not Reportable Eos % (Auto) Not Reportable Baso % (Auto) Not Reportable Lymph # (Auto) Not Reportable Weakley # (Auto) Not Reportable Baso # (Auto) Not Reportable Total Counted 100 Seg Neutrophils % 63.0 Band Neutrophils % 2.0 L Lymphocytes % (Manual) 26.0 Monocytes % (Manual) 7.0 Eosinophils % (Manual) 2.0 Neutrophils # (Manual) 6110 H RBC Morphology See below Anisocytosis 1+ H Sodium Potassium Chloride Carbon Dioxide BUN Creatinine Estimated GFR BUN/Creatinine Ratio Glucose Calcium Magnesium Urine Color Yellow Urine Appearance Clear Urine pH 5.5 Ur Specific Holland <=1.005 Urine Protein Negative Urine Glucose (UA) Negative Urine Ketones Negative Urine Occult Blood 3+ H Urine Nitrate Negative Urine Bilirubin Negative Urine Urobilinogen 0.2 Ur Leukocyte Esterase 3+ H Urine RBC 1-5/hpf Urine WBC 30-100/hpf H Ur Squamous Epith Cells 0-1 /hpf Urine Bacteria Few (2-10) H Ur Culture Indicated? Specimen cultured A. baumannii (PCR) Not detected Kandi albicans (PCR) Not detected C. glabrata (PCR) Not detected C. krusei (PCR) Not detected C. parapsilosis (PCR) Not detected C. tropicalis (PCR) Not detected Enterobacteriac sp PCR Not detected E. cloacae complex PCR Not detected Enterococcus sp PCR Not detected E. coli (PCR) Not detected H. influenzae (PCR) Not detected Klebsiella oxytoca PCR Not detected Klebsiella pneumoniae Not detected List. monocytogenes PCR Not detected N. meningitidis (PCR) Not detected Proteus species (PCR) Not detected Serratia marcescens PCR Not detected Staphylococcus sp PCR Detected H Staph aureus (PCR) Not detected mecA-Methicil Res Gene Detected H Streptococcus sp PCR Not detected Group A Strep (PCR) Not detected Strep agalactiae (PCR) Not detected Strep pneumoniae (PCR) Not detected P. aeruginosa (PCR) Not detected Pari/B-Vanco Res Genes Not Reportable KPC-Carbap Res Gene PCR Not Reportable 07/11/21 05:00 WBC RBC Hgb Hct MCV MCH MCHC RDW Plt Count Neut % (Auto) Lymph % (Auto) Weakley % (Auto) Eos % (Auto) Baso % (Auto) Lymph # (Auto) Weakley # (Auto) Baso # (Auto) Total Counted Seg Neutrophils % Band Neutrophils % Lymphocytes % (Manual) Monocytes % (Manual) Eosinophils % (Manual) Neutrophils # (Manual) RBC Morphology Anisocytosis Sodium 141 Potassium 3.8 Chloride 109 H Carbon Dioxide 24 BUN 16 Creatinine 0.79 Estimated GFR > 60 BUN/Creatinine Ratio 20.3 Glucose 91 Calcium 8.5 Magnesium 1.8 Urine Color Urine Appearance Urine pH Ur Specific Holland Urine Protein Urine Glucose (UA) Urine Ketones Urine Occult Blood Urine Nitrate Urine Bilirubin Urine Urobilinogen Ur Leukocyte Esterase Urine RBC Urine WBC Ur Squamous Epith Cells Urine Bacteria Ur Culture Indicated? A. baumannii (PCR) Kandi albicans (PCR) C. glabrata (PCR) C. krusei (PCR) C. parapsilosis (PCR) C. tropicalis (PCR) Enterobacteriac sp PCR E. cloacae complex PCR Enterococcus sp PCR E. coli (PCR) H. influenzae (PCR) Klebsiella oxytoca PCR Klebsiella pneumoniae List. monocytogenes PCR N. meningitidis (PCR) Proteus species (PCR) Serratia marcescens PCR Staphylococcus sp PCR Staph aureus (PCR) mecA-Methicil Res Gene Streptococcus sp PCR Group A Strep (PCR) Strep agalactiae (PCR) Strep pneumoniae (PCR) P. 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) Cervical cancer, FIGO stage I Cholelithiasis Chronic back pain Developmental disorder Diarrhea Essential hypertension (02/19/12) Failure to thrive in adult Fibrocystic breast disease GERD (gastroesophageal reflux disease) History of colon polyps (02/19/12) History of left breast cancer (~2008) Hyperlipidemia IBS (irritable bowel syndrome) Measles 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, bilateral Personal history of other malignant neoplasm of skin (02/19/12) 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 RESOLVED.? CAUSE IS UNCLEAR. ? CHRONIC SYSTOLIC HEART FAILURE. ? ECHOCARDIOGRAM WITH SEVERE MR AND EF ABOUT 35-40% ?MITRAL VALVE REGURGITATION.? FOR ECHO ?PHYSICAL DEBILITY/DECONDITIONING.? MULTIFACTORIAL ?ATRIAL FIBRILLATION PER HISTORY ?ELIQUIS COAGULOPATHY ?HYPERLIPIDEMIA PER HISTORY ? ELEVATED PROLACTIN LEVEL. ? PLAN ?PATIENT HAD AN MRI WHICH FAILED TO SHOW ANY ACUTE CVA ?SOME CHRONIC FINDINGS NOTED PRESENT IN PRIOR STUDIES ?ECHOCARDIOGRAM WITH AN EF OF 35-40%.? SIGNIFICANT WALL MOTION ABNORMALITY ALSO APPRECIATED. ?SIGNIFICANT MITRAL VALVE REGURG ALSO APPRECIATED ?THIS WILL NEED TO BE FOLLOWED OUTPATIENT WITH CARDIOLOGY IF INDICATED. ?URINALYSIS? NOT SHOWING ANY SIGN OF SIGNIFICANT INFECTIOUS PROCESS ?CHEST X-RAY STABLE WELL ??PT/OT TEAM HAVE ASSESSED AND RECOMMENDATION FOR SNF APPRECIATED MARSHMALLOW MACHINE OPERATOR IS AWARE AND WORKING ON DC PLANNING ?PATIENT TO STAY ON TELEMETRY AT ALL TIMES ?FALL AND ASPIRATION TO BE MAINTAINED AT ALL TIMES ?PHYSICAL THERAPY AND OCCUPATIONAL? THERAPY TEAM TO EVALUATE AND TREAT INDICATED ?ADDITIONAL MANAGEMENT PER CLINICAL COURSE ?POSSIBLE DISCHARGE IN THE NEXT 24-48 HOURS IF CLINICALLY STABLE PLAN TO DISCHARGE TO SNF ON DISPOSITION ONCE AN ACCEPTING FACILITY FOUND Time Spent With Patient Critical Care time: I spent a total of [] minutes of critical care time on this patient's care today; this time is exclusive of procedural time. Quality Stroke Symptom Onset Unknown: Yes VTE Deep Vein Thrombosis/Pulmonary Embolism Present on Admission: No
[2021-07-11] MEDS: ATORVASTATIN 20 MG TABLET 40 MG PO (20:32)
[2021-07-12 05:30] VITALS: BP 104/50; PULSE 61; RESP 16; TEMP 36.4; O2SAT 96
[2021-07-12 06:06] LABS: Add Manual Diff / Slide Review NO; Basophils Absolute Auto 100 /uL (0-100); Basophils Percent Auto 0.7 % (0-2); Eosinophils Absolute Auto 200 /uL (0-450); Eosinophils Percent Auto 2.1 % (2-4); Hematocrit 35.4 % (36-46); Hemoglobin 11.8 g/dL (12.0-16.0); Lymphocytes Absolute Auto 2300 /uL (1100-4500); Lymphocytes Percent Auto 29.5 % (25-40); Mean Corpuscular HGB Conc 33.3 % (30-36); Mean Corpuscular Hemoglobin 30.6 PG (26-34); Mean Corpuscular Volume 91.9 fL (80-100); Monocytes Absolute Auto 600 /uL (0-900); Monocytes Percent Auto 7.9 % (3-14); Neutrophils Absolute Auto 4600 /uL (1500-7000); Neutrophils Percent Auto 59.8 % (50-75); Platelet Count 175 X10^3/uL (150-400); Red Blood Cell Count 3.85 X10^6/uL (4.0-5.2); Red Cell Distribution Width 14.4 % (11.6-14.8); White Blood Cell Count 7.7 X10^3/uL (4.5-11.0)
[2021-07-12 06:09] LABS: BUN Creatinine Ratio 27.8 (6-22); Blood Urea Nitrogen 25 mg/dL (7-17); Calcium 8.4 mg/dL (8.4-10.2); Carbon Dioxide 31 mmol/L (22-32); Chloride 102 mmol/L (98-107); Estimated Glomerular Filt Rate > 60 mL/min (>60); Glucose 96 mg/dL (80-110); HEMOLYSIS < 15 (0-50); Magnesium 1.5 mg/dL (1.6-2.3); Potassium 3.9 mmol/L (3.4-5.1); Sodium 137 mmol/L (137-145)
[2021-07-12 08:50] VITALS: BP 86/35; PULSE 71; RESP 22; TEMP 36.3; O2SAT 97
--- NOTE | 2021-07-12 09:28 | PT-IP ANOTE ---
Attempted to see pt at 9:28 AM, pt refused therapy reporting terrible headache and requesting pain medication. RN notified.
[2021-07-12 10:04] VITALS: PULSE 68; RESP 16; O2SAT 97
[2021-07-12] MEDS: GABAPENTIN 100 MG CAPSULE PO ×2 (10:20→14:20)
[2021-07-12] MEDS: PANTOPRAZOLE DR 40 MG TABLET PO (10:20)
[2021-07-12] MEDS: POTASSIUM CHLORIDE 10 MEQ TAB PO (10:20)
[2021-07-12 10:21] VITALS: BP 86/35; PULSE 68
[2021-07-12] MEDS: APIXABAN 5 MG TABLET PO (10:22)
[2021-07-12] MEDS: ACETAMINOPHEN 325 MG TABLET 650 MG PO (10:22)
[2021-07-12] MEDS: TORSEMIDE 10 MG TABLET 20 MG PO (10:22)
[2021-07-12] MEDS: MAGNESIUM CHLORIDE 64 MG TABLET 128 MG PO (11:23)
[2021-07-12 12:35] VITALS: BP 102/50; PULSE 72; RESP 22; TEMP 36.3; O2SAT 97
--- NOTE | 2021-07-12 12:52 | PM.PN.1 ---
Subjective Subjective Interval history: Patient denies acute complaints this morning. She reports not sleeping very well last night due to a lot of hospital noises. She is aware that she's pending discharge today in the care of her son. She denies any EtOH intake at home. Exam Vital Signs (past 8 hours): - 07/12/21 05:30 07/12/21 08:50 07/12/21 10:04 Temperature 97.5 F L 97.3 F L Pulse Rate 61 71 68 Respiratory Rate 16 22 16 Blood Pressure 104/50 L 86/35 L Pulse Oximetry 96 97 97 07/12/21 10:21 07/12/21 12:35 Temperature 97.3 F L Pulse Rate 68 72 Respiratory Rate 22 Blood Pressure 86/35 L 102/50 L Pulse Oximetry 97 Oxygen Delivery Method Room Air Oxygen Flow Rate 0 Const Other: Patient laying in bed comfortably upon my entering the room, sleeping and in no apparent acute distress HENMT Other: Edentulous Eyes Other: No scleral icterus appreciated Resp Other: Lungs clear to auscultation to the anterior lung chen Cardio Other: RRR, with normal S1 and S2 heart sounds, and no extra heart sounds or murmurs appreciated GI Other: Soft, non-distended, non-tender, bowel sounds present Skin Other: No grossly abnormal skin lesions noted Extrem Other: Palpable dorsalis pedis pulses bilaterally and equal Objective Labs Result Diagrams: 07/12/21 05:25 07/12/21 05:25 Labs: Laboratory Results - last 24 hr 07/12/21 07/12/21 05:25 05:25 WBC 7.7 RBC 3.85 L Hgb 11.8 L Hct 35.4 L MCV 91.9 MCH 30.6 MCHC 33.3 RDW 14.4 Plt Count 175 Neut % (Auto) 59.8 Lymph % (Auto) 29.5 [place] % (Auto) 7.9 Eos % (Auto) 2.1 Baso % (Auto) 0.7 Neut # (Auto) 4600 Lymph # (Auto) 2300 [place] # (Auto) 600 Eos # (Auto) 200 Baso # (Auto) 100 Sodium 137 Potassium 3.9 Chloride 102 Carbon Dioxide 31 BUN 25 H Creatinine 0.90 Estimated GFR > 60 BUN/Creatinine Ratio 27.8 H Glucose 96 Calcium 8.4 Magnesium 1.5 L [facility] Medical History Abdominal pain Acute pancreatitis Anxiety 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) Asthma Breast cancer (~2001) CAD (coronary artery disease) Calcified nodule Cerebrovascular accident (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 right middle cerebral artery (04/27/17) Cervical cancer, FIGO stage I Cholelithiasis Chronic back pain Developmental disorder Diarrhea Essential hypertension (02/19/12) Failure to thrive in adult Fibrocystic breast disease GERD (gastroesophageal reflux disease) History of colon polyps (02/19/12) History of left breast cancer (~2008) Hyperlipidemia IBS (irritable bowel syndrome) Measles 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, bilateral Personal history of other malignant neoplasm of skin (02/19/12) 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 Physical debility/deconditioning 2. 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 Atrial fibrillation 4. HFrEF (EF 35-40%), likely ischemic cardiomyopathy 5. Hypertension 6. Constipation with impaction, improved Plan: 1. This is likely a function of advancing age and sedentary status at home. The patient declined SNF placement, and will receive home health aide on discharge. 2. This likely is contributing greatly to problem 1. Continue home atherosclerotic plaque protecting meds. 3. Will continue Eliquis 5 mg bid for anticoagulation, with Lopressor 12.5 mg daily for rate control. 4. Will continue torsemide 20 mg daily on discharge. 5. Will resume home losartan 50 mg daily. 6. Conservative management and encouraged ambulation. Code: Full code Surrogate: Son I have utilized all available immediate resources to obtain, update, or verify the patient's current medications. Time Spent With Patient Critical Care time: I spent a total of [] minutes of critical care time on this patient's care today; this time is exclusive of procedural time. Quality Stroke Symptom Onset Unknown: Yes VTE Deep Vein Thrombosis/Pulmonary Embolism Present on Admission: No MIPS - Admit I confirm the patient?s Advance Care Plan is present, Code status is documented, Surrogate decision maker is in patient?s record [If Yes, STOP here]: Yes
--- NOTE | 2021-07-12 13:07 | P.DS_ITS ---
History of Present Illness History of Present Illness Chief complaint: Decreased LOC Narrative: Chana Garrido is an 86-year-old female with a history of chronic abdominal pain, CAD, anxiety, atrial fibrillation on anticoagulation, history of thromboembolism and the popliteal artery, breast cancer, CVA, presents today because supposedly her son found her passed out on the ?lisbeth potty.? Patient states she only eats 2 times a day consisting mostly of putting and peanut butter cookies and then has maybe a hot meal, usually hamburger.? She presented today with EMS and she was very confused and apparently covered with stool and urine. She told the nurse that she lives in an apartment that is connected to the house that her son lives in and when discussing her case with the ED provider, she was in the process of being evicted from an apartment however she has tenant rights and apparently that is been an issue.? Review of case management note written on the indicates that she has no running water in her home and reportedly lives with her son and was recently homeless.? She was apparently confused, unkempt and appeared to be not cared for hygienic [place].? It appears that multiple times when the son was contacted he was hard to be connected to and when they were able to reach him he would request that the patient be sent home by cab.? She was apparently seen in the emergency department on July 07 and at that time there objective will to obtain a urinalysis however it appeared to be contaminated and a culture was not able to be grown or specified. CT of the head did report prior cortical and subcortical encephalomalacia on the right parietal and temporal lobes consistent with a prior infarct in the right MCA territory and suggested if there were concerned of an acute on chronic CVA to have the patient undergo MRI imaging to further delineate this.? CT of the chest abdomen and pelvis reported a small right upper lobe 0.4 cm pulmonary nodule with recommendations for follow-up in 12 months and moderate stool distention in the rectum likely impaction and colonic diverticulosis without acute diverticulitis.? WBC is unremarkable, she has a creatinine bump of 1.06 with an EGFR of 52, alk-phos elevated at 146 UA is positive for ketones and trace leukocyte esterase and will be cultured.? COVID-19 PCR is negative. Written by admitting provider. Discharge Providers Provider Date of admission: 07/09/21 21:54 Discharge Date: 07/12/21 Primary care physician: Lizet Vázquez MD Consults: 07/09/21 23:18 Consult to Dietitian, Adult Routine Comment: Reason For Exam: malnutrition & no teeth [place] [facility] [place] Chairman And Chief Executive Officer Routine Comment: 07/10/21 01:58 Consult to Discharge Planning Routine Comment: Failure to thrive, needs placement? 07/10/21 02:01 Consult to Chairman And Chief Executive Officer Routine Comment: APS case for neglect 07/10/21 05:08 Consult to Occupational Therapy Evaluate & Treat Comment: Prior CVA, syncopal episode, cognitive eval Physician Instructions: Evaluate and treat Consult to Physical Therapy Evaluate & Treat Comment: Prior CVA, syncopal episode Physician Instructions: Evaluate and Treat Consult to Speech Therapy Evaluate & Treat Comment: Prior CVA, mild dysarthria, syncopal episode Physician Instructions: Evaluate and treat Discharge provider: Jose Brown MD Summary Hospital Course Discharge Diagnosis: Assessment: 1. Physical debility/deconditioning 2. 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 Atrial fibrillation 4. HFrEF (EF 35-40%), likely ischemic cardiomyopathy 5. Hypertension 6. Constipation with impaction, improved Plan: 1. This is likely a function of advancing age and sedentary status at home. The patient declined SNF placement, and will receive home health aide on discharge. 2. This likely is contributing greatly to problem 1. Continue home atherosclerotic plaque protecting meds. 3. Will continue Eliquis 5 mg bid for anticoagulation, with Lopressor 12.5 mg daily for rate control. 4. Will continue torsemide 20 mg daily on discharge. 5. Will resume home losartan 50 mg daily. 6. Conservative management and encouraged ambulation. Exam Vital Signs (past 8 hours): - 07/12/21 05:30 07/12/21 08:50 07/12/21 10:04 Temperature 97.5 F L 97.3 F L Pulse Rate 61 71 68 Respiratory Rate 16 22 16 Blood Pressure 104/50 L 86/35 L Pulse Oximetry 96 97 97 07/12/21 10:21 07/12/21 12:35 Temperature 97.3 F L Pulse Rate 68 72 Respiratory Rate 22 Blood Pressure 86/35 L 102/50 L Pulse Oximetry 97 Oxygen Delivery Method Room Air Oxygen Flow Rate 0 Objective Labs Result Diagrams: 07/12/21 05:25 07/12/21 05:25 Labs: Laboratory Results - last 24 hr 07/12/21 07/12/21 05:25 05:25 WBC 7.7 RBC 3.85 L Hgb 11.8 L Hct 35.4 L MCV 91.9 MCH 30.6 MCHC 33.3 RDW 14.4 Plt Count 175 Neut % (Auto) 59.8 Lymph % (Auto) 29.5 [place] % (Auto) 7.9 Eos % (Auto) 2.1 Baso % (Auto) 0.7 Neut # (Auto) 4600 Lymph # (Auto) 2300 [place] # (Auto) 600 Eos # (Auto) 200 Baso # (Auto) 100 Sodium 137 Potassium 3.9 Chloride 102 Carbon Dioxide 31 BUN 25 H Creatinine 0.90 Estimated GFR > 60 BUN/Creatinine Ratio 27.8 H Glucose 96 Calcium 8.4 Magnesium 1.5 L PFSH Medical History Abdominal pain Acute pancreatitis Anxiety 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) Asthma Breast cancer (~2001) CAD (coronary artery disease) Calcified nodule Cerebrovascular accident (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 right middle cerebral artery (04/27/17) Cervical cancer, FIGO stage I Cholelithiasis Chronic back pain Developmental disorder Diarrhea Essential hypertension (02/19/12) Failure to thrive in adult Fibrocystic breast disease GERD (gastroesophageal reflux disease) History of colon polyps (02/19/12) History of left breast cancer (~2008) Hyperlipidemia IBS (irritable bowel syndrome) Measles 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, bilateral Personal history of other malignant neoplasm of skin (02/19/12) 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 Physical debility/deconditioning 2. 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 Atrial fibrillation 4. HFrEF (EF 35-40%), likely ischemic cardiomyopathy 5. Hypertension 6. Constipation with impaction, improved Plan: 1. This is likely a function of advancing age and sedentary status at home. The patient declined SNF placement, and will receive home health aide on discharge. 2. This likely is contributing greatly to problem 1. Continue home atherosclerotic plaque protecting meds. 3. Will continue Eliquis 5 mg bid for anticoagulation, with Lopressor 12.5 mg daily for rate control. 4. Will continue torsemide 20 mg daily on discharge. 5. Will resume home losartan 50 mg daily. 6. Conservative management and encouraged ambulation. Discharge Plan Discharge Plan Patient Disposition: Home Discharge orders & Medications Prescriptions: Continued (DME) Aerochamber MV Spacer See Rx Instructions .ROUTE .MEDSUPPLY Qty: 1 0RF Rx Instructions: As directed apixaban 5 mg tablet 5 mg PO BID Qty: 180 1RF gabapentin [Neurontin] 300 mg capsule 300 mg PO TID Qty: 270 0RF Hold Instructions: stopped at [facility] losartan 50 mg tablet 50 mg PO DAILY Qty: 90 1RF pantoprazole 40 mg tablet,delayed release (DR/EC) 40 mg PO DAILY Qty: 90 0RF nitroglycerin [Nitrostat] 0.4 mg tablet, sublingual See Rx Instructions Sublingual PRN PRN (Reason: Chest Pain) Qty: 30 0RF Rx Instructions: 1 tab under tongue every five minutes up to three times, call 911 if no relief. atorvastatin 40 mg tablet 40 mg PO BEDTIME Qty: 90 0RF metoprolol tartrate 25 mg tablet 12.5 mg PO DAILY Qty: 45 0RF (DME) Handicap Parking Qty: 1 0RF Dose Instruction: As directed Rx Instructions: Patient unable to walk 200 feet without stopping to rest. hydrocodone-acetaminophen 5-325 mg tablet 1 tab PO BID PRN (Reason: pain) Qty: 20 0RF diclofenac sodium 1 % gel 2 g topical QID Qty: 100 0RF Rx Instructions: apply to single elbow, wrist or hand; for hand includes palm/fingers/back of hand Follow up/Referrals: Lizet Vázquez MD [Primary Care Provider] - Discharge Data Primary Care Provider: Lizet Vázquez Quality Stroke Symptom Onset Unknown: Yes VTE Deep Vein Thrombosis/Pulmonary Embolism Present on Admission: No
[2021-07-12 13:18] VITALS: O2SAT 97
--- NOTE | 2021-07-12 14:28 | PT-IP ANOTE ---
Pt in w/c and being d/c.
== END 2021-07-12 14:31 | disposition home or self-care (01) | DRG 312 ==
LOC: ED 19:27 → AC 07-10 03:35
PROVIDERS: Admitting Provider Nurse Practitioner Family; Emergency Provider Emergency Medicine; PCP Family Medicine; Referring Provider Nurse Practitioner Family; Visit Provider Nurse Practitioner Family
DX: R55 Syncope and collapse (principal); E43 Unspecified severe protein-calorie malnutrition; I50.22 Chronic systolic (congestive) heart failure; I11.0 Hypertensive heart disease with heart failure; I48.0 Paroxysmal atrial fibrillation; R62.7 Adult failure to thrive; G93.89 Other specified disorders of brain; K56.41 Fecal impaction; I25.10 Atherosclerotic heart disease of native coronary artery without angina pectoris; G89.4 Chronic pain syndrome; K21.9 Gastro-esophageal reflux disease without esophagitis; E78.5 Hyperlipidemia, unspecified; E86.0 Dehydration; I69.322 Dysarthria following cerebral infarction; Z20.822 Contact with and (suspected) exposure to COVID-19; Z79.01 Long term (current) use of anticoagulants; Z95.1 Presence of aortocoronary bypass graft; Z68.20 Body mass index [BMI] 20.0-20.9, adult
CPT/HCPCS: 36415; 70450; 70548; 70553; 71045; 71260; 74177; 80048; 80053; 80320; 80329; 81001; 82550; 83605; 83690; 83735; 83880; 84145; 84146; 84443; 84484; 85007; 85025; 87040; 87077; 87086; 87150; 87186; 87633; 92526; 92610; 93005; 93306; 94760; 96361; 96374; 96375; 97162; 97166; 97530; 99284; 99285; A9579; C9113; G0480; J2405; Q9967

== ENCOUNTER 2021-08-07 19:49 | Observation (INO) | payer MEDICARE, OTHER, MEDICAID, SELFPAY ==
[2021-07-09 23:11] VITALS: BMI 20.2
[2021-08-07] VITALS (15 sets, daily range): BP systolic 175–207; BP diastolic 80–119; PULSE 83–118; RESP 5–30; TEMP 36.5; O2SAT 94–96; BMI 21.1
--- NOTE | 2021-08-07 21:09 | DI.RAD.S_ITS ---
PROCEDURE: XR CHEST 1V INDICATIONS: chest pain TECHNIQUE: One view of the chest was acquired. COMPARISON: [facility], CR, XR CHEST 1V, 07/06/2021, 20:46. FINDINGS: Surgical changes and devices: Postsurgical changes are redemonstrated in the mediastinum and left axilla. Lungs and pleura: There is hyperinflation of the lungs with flattening of the hemidiaphragms compatible with COPD. No acute consolidation. No pleural effusions or pneumothorax. Mediastinum: Mediastinal contours are unchanged. Heart size is mildly enlarged. Bones and chest wall: No suspicious bony lesions. Overlying soft tissues appear unremarkable. IMPRESSION: 1. Findings compatible with COPD without acute consolidation. Dictated by: Cirilo Farrell M.D. on 08/07/2021 at 23:00 Approved by: Cirilo Farrell M.D. on 08/07/2021 at 23:01
--- NOTE | 2021-08-07 21:32 | ED_ITS ---
HPI - Chest Pain General Chief Complaint: Chest Pain Stated Complaint: Chest Pain, Welfare check Time Seen by Provider: 08/07/21 21:24 Source: patient Mode of arrival: EMS Limitations: altered mental status History of Present Illness HPI narrative: Patient brought here by ambulance from home. Complaints of chest pain relief with home nitroglycerin. To calm 81 mg aspirin. Denies any chest pain at this time. History of coronary disease with bypass surgery. Recently admitted here last month for multiple problems. Did have echocardiogram done. Please see discharge note below. Denies any recent illness. No fall or injury. She states she is in a better living condition since being discharged last month. No recent illness fever chills cough cold or congestion. No urinary complaints. Patient is awake alert oriented x3. History of Present Illness History of Present Illness Chief complaint: Decreased LOC Narrative: Shaun Garrido is an 86-year-old female with a history of chronic abdominal pain, CAD, anxiety, atrial fibrillation on anticoagulation, history of thromboembolism and the popliteal artery, breast cancer, CVA, presents today because supposedly her son found her passed out on the ?lisbeth potty.? Patient states she only eats 2 times a day consisting mostly of putting and peanut butter cookies and then has maybe a hot meal, usually hamburger.? She presented today with EMS and she was very confused and apparently covered with stool and urine. She told the nurse that she lives in an apartment that is connected to the house that her son lives in and when discussing her case with the ED provider, she was in the process of being evicted from an apartment however she has tenant rights and apparently that is been an issue.? Review of case management note written on the indicates that she has no running water in her home and reportedly lives with her son and was recently homeless.? She was apparently confused, unkempt and appeared to be not cared for [facility] [place].? It appears that multiple times when the son was contacted he was hard to be connected to and when they were able to reach him he would request that the patient be sent home by cab.? She was apparently seen in the emergency department on July 07 and at that time there objective will to obtain a urinalysis however it appeared to be contaminated and a culture was not able to be grown or specified. CT of the head did report prior cortical and subcortical encephalomalacia on the right parietal and temporal lobes consistent with a prior infarct in the right MCA territory and suggested if there were concerned of an acute on chronic CVA to have the patient undergo MRI imaging to further delineate this.? CT of the chest abdomen and pelvis reported a small right upper lobe 0.4 cm pulmonary nodule with recommendations for follow-up in 12 months and moderate stool distention in the rectum likely impaction and colonic diverticulosis without acute diverticulitis.? WBC is unremarkable, she has a creatinine bump of 1.06 with an EGFR of 52, alk-phos elevated at 146 UA is positive for ketones and trace leukocyte esterase and will be cultured.? COVID-19 PCR is negative. [address] [address] Discharge Summary Patient: Shaun Garrido MR#: [id number] : 1935 Acct:[id number] Age/Sex: 86 / F ? Date of Service: 07/09/21 Provider:?Jose Brown MD ADDENDUMAs an addendum to the assessment and plan portion of this note, please add the following: severe, acute protein-calorie malnutrition. This is likely adversely affecting all of the patient's other comorbidities. Addendum Documented By: Jose Brown MD 07/13/21 1321 Addendum Signed By: <Electronically signed by Jose Brown MD> 07/13/21 1321 History of Present Illness History of Present Illness Chief complaint: Decreased LOC Narrative: Shaun Garrido is an 86-year-old female with a history of chronic abdominal pain, CAD, anxiety, atrial fibrillation on anticoagulation, history of thromboembolism and the popliteal artery, breast cancer, CVA, presents today because supposedly her son found her passed out on the ?lisbeth potty.? Patient states she only eats 2 times a day consisting mostly of putting and peanut butter cookies and then has maybe a hot meal, usually hamburger.? She presented today with EMS and she was very confused and apparently covered with stool and urine. She told the nurse that she lives in an apartment that is connected to the house that her son lives in and when discussing her case with the ED provider, she was in the process of being evicted from an apartment however she has tenant rights and apparently that is been an issue.? Review of case management note written on the indicates that she has no running water in her home and reportedly lives with her son and was recently homeless.? She was apparently confused, unkempt and appeared to be not cared for [facility] [place].? It appears that multiple times when the son was contacted he was hard to be connected to and when they were able to reach him he would request that the patient be sent home by cab.? She was apparently seen in the emergency department on July 07 and at that time there objective will to obtain a urinalysis however it appeared to be contaminated and a culture was not able to be grown or specified. CT of the head did report prior cortical and subcortical encephalomalacia on the right parietal and temporal lobes consistent with a prior infarct in the right MCA territory and suggested if there were concerned of an acute on chronic CVA to have the patient undergo MRI imaging to further delineate this.? CT of the chest abdomen and pelvis reported a small right upper lobe 0.4 cm pulmonary nodule with recommendations for follow-up in 12 months and moderate stool distention in the rectum likely impaction and colonic diverticulosis without acute diverticulitis.? WBC is unremarkable, she has a creatinine bump of 1.06 wi th an EGFR of 52, alk-phos elevated at 146 UA is positive for ketones and trace leukocyte esterase and will be cultured.? COVID-19 PCR is negative. Written by admitting provider. Discharge Providers Provider Date of admission: 07/09/21 21:54 Discharge Date: 07/12/21 Primary care physician: Lizet Vázquez MD Consults: 07/09/21 23:18 Consult to Dietitian, Adult Routine Comment: Reason For Exam: malnutrition & no teeth Consult to DIRECTOR [employer] - Seat Nailer Routine Comment: 07/10/21 01:58 Consult to Discharge Planning Routine Comment: Failure to thrive, needs placement? 07/10/21 02:01 Consult to Seat Nailer Routine Comment: APS case for neglect 07/10/21 05:08 Consult to Occupational Therapy Evaluate & Treat Comment: Prior CVA, syncopal episode, cognitive eval Physician Instructions: Evaluate and treat Consult to Physical Therapy Evaluate & Treat Comment: Prior CVA, syncopal episode Physician Instructions: Evaluate and Treat Consult to Speech Therapy Evaluate & Treat Comment: Prior CVA, mild dysarthria, syncopal episode Physician Instructions: Evaluate and treat Discharge provider: Jose Brown MD Summary Hospital Course Discharge Diagnosis: Assessment: 1. Physical debility/deconditioning 2. 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 Atrial fibrillation 4. HFrEF (EF 35-40%), likely ischemic cardiomyopathy 5. Hypertension 6. Constipation with impaction, improved Plan: 1. This is likely a function of advancing age and sedentary status at home. The patient declined SNF placement, and will receive home health aide on discharge. 2. This likely is contributing greatly to problem 1. Continue home atherosclerotic plaque protecting meds. 3. Will continue Eliquis 5 mg bid for anticoagulation, with Lopressor 12.5 mg daily for rate control. 4. Will continue torsemide 20 mg daily on discharge. 5. Will resume home losartan 50 mg daily. 6. Conservative management and encouraged ambulation. Discharge Assessment & Plan Assessment and Plan Assessment: Assessment: 1. Physical debility/deconditioning 2. 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 Atrial fibrillation 4. HFrEF (EF 35-40%), likely ischemic cardiomyopathy 5. Hypertension 6. Constipation with impaction, improved Plan: 1. This is likely a function of advancing age and sedentary status at home. The patient declined SNF placement, and will receive home health aide on discharge. 2. This likely is contributing greatly to problem 1. Continue home atheroscle rotic plaque protecting meds. 3. Will continue Eliquis 5 mg bid for anticoagulation, with Lopressor 12.5 mg daily for rate control. 4. Will continue torsemide 20 mg daily on discharge. 5. Will resume home losartan 50 mg daily. 6. Conservative management and encouraged ambulation. Discharge Plan Discharge Plan Patient Disposition: [address] [address] Echocardiography Report Signed Patient: Shaun Garrido MR#: [id number] : 1935 Acct:[id number] Age/Sex: 86 / F Date of Service: 07/10/21 Loc: 215-1 Accession Number: [id number] ?? Procedure: EC echo doppler complete Ordering Provider: Mirtha Marquez [facility] +---------+ : ? :? [address] ? : ? : : ? :? [place] ? : ? : : ? :? [id number] ? : ? : : ? : ? Phone: [phone] : ? : [phone]? [phone]? +---------+ ? Echocardiogram Report + + :Name: SHAUN GARRIDO? ? ? Study Date: 07/10/2021 ? Height: 67 in? : :[facility] ? ? ReadingLocation: ? Weight: 128 lb : : ? Gender: Female ? BSA: 1.7 m2? ? : :: 1935? Age: 86 yrs? BP: 184/97 mmHg: :Reason For Study: CVA? : :Ordering Physician: Valentina MARQUZEformed By: Kirstie Robbins? : :Referring: MIRTHA MARQUEZ ? : + + Interpretation Summary The left ventricle is normal in size and wall thickness. The ejection fraction is estimated to be 35-40%. There is mild to moderate global hypokinesis of the left ventricle. The inferior and inferposterior are relatively more hypokinetic, but overall unchanged from prior exam. Right ventricular systolic function is mild to moderately reduced. The right ventricular systolic pressure is estimated to be at least 29 mmHg based on an estimated right atrial pressure of 8 mm Hg. The left atrium is severely dilated. The right atrium is severely dilated. There is moderate mitral annular calcification. There is mild mitral regurgitation. The aortic valve is mildly calcified. Overall no significant change from prior exam. However, there the MR and TR are now mild instead of moderate. The pulmonary hypertension is improved from prior exam. ? Procedure: ? A two-dimensional transthoracic echocardiogram with color flow and Doppler was performed. The study quality was technically adequate. Comparison is made with the echocardiogram of 01/07/2019. The patient was in atrial fibrillation with heart rates between 54-75 bpm during the exam. Left Ventricle: ? The left ventricle is normal in size and wall thickness. The ejection fraction is estimated to be 35-40%. There is mild to moderate global hypokinesis of the left ventricle. The inferior and inferposterior are relatively more hypokinetic, but overall unchanged from prior exam. Diastolic function could not be accurately assessed due to atrial fibrillation. Right Ventricle: ? The right ventricle is normal size. Right ventricular systolic function is mild to moderately reduced. Atria: ? The left atrium is severely dilated. The right atrium is severely dilated. There is no Doppler evidence for an interatrial shunt. Mitral Valve: ? There is moderate mitral annular calcification. The mitral valve leaflets are mildly calcified. There is mild mitral regurgitation. Aortic Valve: ? The aortic valve is mildly calcified. There is no hemodynamically significant valvular aortic stenosis. There is trace aortic regurgitation. Tricuspid Valve: ? The tricuspid valve is normal in structure and function. There is mild tricuspid regurgitation. The right ventricular systolic pressure is estimated to be at least 29 mmHg based on an estimated right atrial pressure of 8 mm Hg. Pulmonic Valve: ? The pulmonic valve is not well seen, but is grossly normal. There is no pulmonic valvular regurgitation. Great Vessels: ? The aortic root is normal size. The dimensions of the ascending aorta are normal. The IVC is of normal diameter and collapses less than 50% with a sniff. This suggests a right atrial pressure of 8 mm Hg. Pericardium/ Pleura ? There is no pericardial effusion. There is no pleural effusion. ? MMode/2D Measurements & Calculations LVIDd: 4.9 cm ? LVOT diam: 2.0 cm LVIDs: 4.0 cm ? Ao root diam: 3.2 cm FS: 18.5 %? asc Aorta Diam: 3.2 cm IVSd: 1.1 cm LVPWd: 0.96 cm LV luna. diameter/BSA (cm/m^2): 2.9 LV sys. diameter/BSA (cm/m^2): 2.4 ? LA A2 area: 27.3 cm2? RA long axis: 6.0 cm LA A4 area: 30.0 cm2? RA area: 23.9 cm2 LA length (vol): 6.6 cm ? RA vol: 80.6 ml LA vol: 106.2 ml? RA : 48.2 ml/m2 LA vol index: 63.5 ml/m2? IVC diam: 1.4 cm ? RVD1 (basal): 3.8 cm RVD2 (mid): 3.8 cm TAPSE: 1.2 cm ? Doppler Measurements & Calculations Ao V2 max: 137.4 cm/sec? LVOT Max Bernardo: 61.4 cm/sec Ao V2 mean: 98.4 cm/sec? LV V1 max P.5 mmHg Ao max P.6 mmHg? LV V1 VTI: 11.9 cm Ao mean P.3 mmHg ? NERISSA(I,D): 1.5 cm2 Ao V2 VTI: 24.6 cm ? NERISSA(V,D): 1.4 cm2 ? sev ratio: 0.49 ? NERISSA indexed to BSA (cm^2/m^2): 0.90 ? MV E max bernardo: 96.4 cm/sec? TR max bernardo: 228.2 cm/sec MV A max bernardo: 2.1 cm/sec ? TR max P.8 mmHg MV E/A: 46.5 ? PA V2 max: 95.2 cm/sec Med Peak E' Bernardo: 5.8 cm/sec? ? ? PA V2 mean: 64.6 cm/sec E/E' med: 16.6 ? PA mean P.8 mmHg Lat Peak E' Bernardo: 9.3 cm/sec? ? ? PA pr(Accel): 44.7 mmHg E/E' lat: 10.4 E/e' average: 13.5 MV dec time: 0.23 sec ? SV(LVOT): 36.8 ml ? Reading Physician:AM Related Data Previous Rx's Medication Instructions Recorded Handicap Parking #1 ea 06/04/18 inhalational spacing device #1 ea 03/24/19 (Aerochamber MV spacer) apixaban 5 mg tablet 5 mg PO BID #180 tabs 08/01/20 nitroglycerin 0.4 mg sublingual See Rx Instructions sublingual PRN 03/18/21 tablet (Nitrostat) PRN Chest Pain #30 tabs gabapentin 300 mg capsule 300 mg PO TID #270 caps 04/10/21 (Neurontin) atorvastatin 40 mg tablet 40 mg PO BEDTIME #90 tabs 05/03/21 metoprolol tartrate 25 mg tablet 12.5 mg PO DAILY #45 tabs 05/03/21 diclofenac sodium 1 % topical gel 2 g topical QID #100 grams 06/26/21 losartan 50 mg tablet 50 mg PO DAILY #90 tabs 07/02/21 pantoprazole 40 mg tablet,delayed 40 mg PO DAILY #90 tabs 07/02/21 release hydrocodone 5 mg-acetaminophen 325 1 tab PO BID PRN pain #20 tabs 07/23/21 mg tablet Allergies Allergy/AdvReac Type Severity Reaction Status Date / Time furosemide [FUROSEMIDE] Allergy Mild RASH Verified 07/09/21 18:19 sertraline [SERTRALINE] Allergy Mild FEELS Verified 07/09/21 18:19 DRUGGED lisinopril AdvReac Mild Cough Verified 07/09/21 18:19 Review of Systems Review of Systems Narrative: GENERAL: Denies chills, fatigue, malaise, fever, sweats. 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) Asthma Breast cancer (~2001) CAD (coronary artery disease) Calcified nodule Cerebrovascular accident (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 right middle cerebral artery (04/27/17) Cervical cancer, FIGO stage I Cholelithiasis Chronic back pain Developmental disorder Diarrhea Essential hypertension (02/19/12) Failure to thrive in adult Fibrocystic breast disease GERD (gastroesophageal reflux disease) History of colon polyps (02/19/12) History of left breast cancer (~2008) Hyperlipidemia IBS (irritable bowel syndrome) Measles 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, bilateral Personal history of other malignant neoplasm of skin (02/19/12) 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) Systolic congestive heart failure with reduced left ventricular function, NYHA class 2 (10/26/10) Surgical History Anesthesia Status post arthroscopy Status post biopsy (~2014) Status post breast lumpectomy (~2008) Status post cholecystectomy Status post coronary artery bypass graft Status post hysterectomy (~2009) Family History Father Myocardial infarct Mother Maternal complication related to childbirth Sister Traumatic amputation Social History household members: children Smoking Status: Never smoker alcohol intake: never Smoking Status: Never smoker alcohol intake frequency: holidays/special occasions only Substance Use Type: does not use Exam Narrative Exam Narrative: GENERAL: in no distress, not toxic not dyspneic HEAD: Normocephalic. EYES: Pupils equal round No scleral icterus. ENT: Mucous membranes moist. NECK: Trachea midline. CARDIOVASCULAR: Regular rate and rhythm without murmurs RESPIRATORY: Clear to auscultation. Breath sounds equal bilaterally. No wheezes, rales, or rhonchi. GASTROINTESTINAL: Abdomen soft, non-tender EXTREMITIES: No gross deformities. BACK: No flank tenderness. NEURO: AOx4. SKIN: Warm and dry PSYCH: Not anxious, is cooperative Initial Vital Signs Initial Vital Signs: Vital Signs Pulse Rate 94 H 08/07/21 20:51 Respiratory Rate 20 08/07/21 20:51 Pulse Oximetry 95 08/07/21 20:51 Scores HEART Score Heart Score history: Highly Suspicious Heart Score EKG: Non-Specific repolarization disturbance Heart Score Age: > or = 65 years old Heart Score risk factors: > 3 risk factors or hx of atherosclerotic disease Heart Score troponin: < or = to normal limit Heart Score Total: 7 Course Course Course Narrative: No new issues during course of stay Decision to Admit Date: 08/08/21 Decision to Admit time: 02:42 Orders Ordered: Acetaminophen (Acetaminophen 325 Mg Tablet) 650 mg PO Q6HR PRN PRN Reason: Fever/Mild Pain (1-3) Last Admin: 08/08/21 16:20 Dose: 650 mg Documented By: SHARITA Apixaban (Apixaban 5 Mg Tablet) 5 mg PO BID [facility] Last Admin: 08/08/21 10:46 Dose: 5 mg Documented By: JONA Atorvastatin Calcium (Atorvastatin 20 Mg Tablet) 40 mg PO BEDTIME [facility] Gabapentin (Gabapentin 300 Mg Capsule) 300 mg PO TID [facility] Last Admin: 08/08/21 16:00 Dose: 300 mg Documented By: Admin: 08/08/21 10:47 Dose: 300 mg Documented By: JONA Losartan Potassium (Losartan 50 Mg Tablet) 50 mg PO DAILY [facility] Last Admin: 08/08/21 06:14 Dose: 50 mg Documented By: TESS Metoprolol Tartrate (Metoprolol Ir 25 Mg Tablet) 12.5 mg PO DAILY [facility] Morphine Sulfate (Morphine 2 Mg/Ml Inj) 2 mg IV Q5MIN PRN PRN Reason: Chest Pain Naloxone HCl (Naloxone 0.4 Mg/Ml Vial) 0.2 mg IV Q2MIN PRN PRN Reason: Opiate Reversal Nitroglycerin (Nitroglycerin 0.4 Mg Sl Tab) 0.4 mg SL [id number] PRN PRN Reason: Chest Pain Ondansetron HCl (Ondansetron 4 Mg/2 Ml Inj) 4 mg IV Q8HR PRN PRN Reason: Nausea And Vomiting Pantoprazole Sodium (Pantoprazole Dr 40 Mg Tablet) 40 mg PO DAILY [facility] Last Admin: 08/08/21 10:46 Dose: 40 mg Documented By: JONA Tramadol HCl (Tramadol 50 Mg Tablet) 50 mg PO Q4H PRN PRN Reason: Pain, Moderate (4-6) Discontinued Medications Apixaban (Apixaban 5 Mg Tablet) 5 mg PO NOW ONE Stop: 08/07/21 23:33 Last Admin: 08/08/21 00:06 Dose: 5 mg Documented By: TIFFANY Aspirin (Aspirin Ec 81 Mg Tablet) 243 mg PO NOW ONE Stop: 08/07/21 21:32 Last Admin: 08/07/21 22:13 Dose: 243 mg Documented By: ELINA Losartan Potassium (Losartan 50 Mg Tablet) 50 mg PO DAILY [facility] Metoprolol Succinate (Metoprolol Er 25 Mg Tablet) 25 mg PO NOW ONE Stop: 08/07/21 23:33 Last Admin: 08/08/21 00:06 Dose: 25 mg Documented By: TIFFANY Reevaluation(s) Reevaluation #1: No chest pain here. Blood pressure 170/89. It has improved. Reviewed results with patient. Agrees for admit. Time: 02:33 Consultations Consultation #1: Spoke with Cardiology, Dr. Bolton, recommends admission and get a nuclear stress test Time: 02:43 Consultation #2: Spoke with hospitalist, Smita, will admit Time: 02:46 Vital Signs Vital signs: Vital Signs - 8 hr 08/07/21 21:05 08/08/21 00:06 08/08/21 01:00 Temperature 97.7 F Pulse Rate 118 H 98 H 82 Respiratory Rate 20 Blood Pressure 201/119 H 191/91 H 202/98 H Pulse Oximetry 96 Oxygen Delivery Method Room Air MDM - Chest Pain Differential Diagnosis Differential diagnosis: Likely stable angina, unstable angina pectoris, atypical chest pain, st elevation myocardial infarction and chest pain Lab Data Result diagrams: 08/07/21 20:07 08/07/21 20:07 Labs: Lab Results 08/07/21 08/07/21 08/07/21 Range/Units 20:07 20:07 22:12 WBC 6.2 (4.5-11.0) X10^3/uL RBC 4.32 (4.0-5.2) X10^6/uL Hgb 13.0 (12.0-16.0) g/dL Hct 39.2 (36-46) % MCV 90.9 (80-100) fL MCH 30.1 (26-34) PG MCHC 33.2 (30-36) % RDW 14.7 (11.6-14.8) % Plt Count 250 (150-400) X10^3/uL Neut % (Auto) 71.1 (50-75) % Lymph % (Auto) 20.2 L (25-40) % [place] % (Auto) 7.2 (3-14) % Eos % (Auto) 0.8 L (2-4) % Baso % (Auto) 0.7 (0-2) % Neut # (Auto) 4400 (2431-2715) /uL Lymph # (Auto) 1300 (9219-0419) /uL [place] # (Auto) 400 (0-900) /uL Eos # (Auto) 0 (0-450) /uL Baso # (Auto) 0 (0-100) /uL Sodium 140 (137-145) mmol/L Potassium 4.5 (3.4-5.1) mmol/L Chloride 103 (98-107) mmol/L Carbon Dioxide 27 (22-32) mmol/L BUN 18 H (7-17) mg/dL Creatinine 0.87 (0.52-1.04) mg/dL Estimated GFR > 60 (>60) mL/min BUN/Creatinine Ratio 20.7 (6-22) Glucose 99 (80-110) mg/dL Calcium 9.1 (8.4-10.2) mg/dL Magnesium 2.0 (1.6-2.3) mg/dL Total Bilirubin 0.9 (0.2-1.3) mg/dL AST 26 (14-36) IU/L ALT 10 (<35) IU/L Alkaline Phosphatase 116 (38-126) U/L Total Creatine Kinase < 20 L (30-135) U/L CK-MB (CK-2) TNP CK-MB (CK-2) Rel Index TNP Troponin I < 0.012 (0.01-0.034) ng/mL Total Protein 7.6 (6.3-8.2) g/dL Albumin 4.1 (3.5-5.0) g/dL Globulin 3.5 (1.7-4.1) g/dL Albumin/Globulin Ratio 1.2 (1.0-2.8) Triglycerides (35-150) mg/dL Cholesterol (140-199) mg/dL LDL Cholesterol, Calc (<100) mg/dL HDL Cholesterol (40-60) mg/dL Lipase 45 (23-300) U/L Urine RBC (0-5/HPF) Urine WBC (0-5/HPF) Ur Squamous Epith Cells (0-5/HPF) Urine Bacteria (None) Hyaline Casts (None) Ur Culture Indicated? Micro UA Comment SARS-CoV-2 (PCR) Negative (Negative) 08/08/21 08/08/21 08/08/21 Range/Units 01:30 01:30 02:34 WBC (4.5-11.0) X10^3/uL RBC (4.0-5.2) X10^6/uL Hgb (12.0-16.0) g/dL Hct (36-46) % MCV (80-100) fL MCH (26-34) PG MCHC (30-36) % RDW (11.6-14.8) % Plt Count (150-400) X10^3/uL Neut % (Auto) (50-75) % Lymph % (Auto) (25-40) % [place] % (Auto) (3-14) % Eos % (Auto) (2-4) % Baso % (Auto) (0-2) % Neut # (Auto) (7692-3435) /uL Lymph # (Auto) (4833-4333) /uL [place] # (Auto) (0-900) /uL Eos # (Auto) (0-450) /uL Baso # (Auto) (0-100) /uL Sodium (137-145) mmol/L Potassium (3.4-5.1) mmol/L Chloride (98-107) mmol/L Carbon Dioxide (22-32) mmol/L BUN (7-17) mg/dL Creatinine (0.52-1.04) mg/dL Estimated GFR (>60) mL/min BUN/Creatinine Ratio (6-22) Glucose (80-110) mg/dL Calcium (8.4-10.2) mg/dL Magnesium (1.6-2.3) mg/dL Total Bilirubin (0.2-1.3) mg/dL AST (14-36) IU/L ALT (<35) IU/L Alkaline Phosphatase (38-126) U/L Total Creatine Kinase (30-135) U/L CK-MB (CK-2) CK-MB (CK-2) Rel Index Troponin I < 0.012 (0.01-0.034) ng/mL Total Protein (6.3-8.2) g/dL Albumin (3.5-5.0) g/dL Globulin (1.7-4.1) g/dL Albumin/Globulin Ratio (1.0-2.8) Triglycerides 111 (35-150) mg/dL Cholesterol 170 (140-199) mg/dL LDL Cholesterol, Calc 90 (<100) mg/dL HDL Cholesterol 58 (40-60) mg/dL Lipase (23-300) U/L Urine RBC None seen (0-5/HPF) Urine WBC 1-5/hpf (0-5/HPF) Ur Squamous Epith Cells 1-5 /hpf (0-5/HPF) Urine Bacteria None seen (None) Hyaline Casts 0-1/lpf (None) Ur Culture Indicated? Culture not indicate Micro UA Comment * SARS-CoV-2 (PCR) (Negative) Urine Dip Bedside Urine Glucose Negative Bedside Urine Bilirubin - Negative Bedside Urine Ketone +/- 5 Urine Specific [place] 1.030 Bedside Urine Occult Blood - Negative Bedside Urine pH 6.0 Bedside Urine Protein ++ 100 Bedside Urine Urobilinogen +/- 1mg Bedside Urine Nitrite - Negative Bedside Urine Leukocytes - Negative Esterase Imaging Data Chest x-ray: Radiologist's Impression: [address] [address] XRay Report Signed Patient: Shaun Garrido MR#: [id number] : 1935 Acct:[id number] Age/Sex: 86 / F Date of Service: 08/07/21 Loc: ED Accession Number: [id number] ?? Procedure: XR chest 1V Ordering Provider: Devon Acevedo MD PROCEDURE:? XR CHEST 1V ? INDICATIONS:? chest pain ? TECHNIQUE:? One view of the chest was acquired.? ? COMPARISON:? [facility], CR, XR CHEST 1V, 07/06/2021, 20:46. ? FINDINGS:? ? Surgical changes and devices:? Postsurgical changes are redemonstrated in the mediastinum and left axilla. ? Lungs and pleura:? There is hyperinflation of the lungs with flattening of the hemidiaphragms compatible with COPD.? No acute consolidation.? No pleural effusions or pneumothorax.? ? Mediastinum:? Mediastinal contours are unchanged.? Heart size is mildly enlarged. ? Bones and chest wall:? No suspicious bony lesions.? Overlying soft tissues appear unremarkable.? ? IMPRESSION:? ? 1. Findings compatible with COPD without acute consolidation. ? ? Dictated by: Cirilo Farrell M.D. on 08/07/2021 at 23:00 ? ? Approved by: Cirilo Farrell M.D. on 08/07/2021 at 23:01 ? ECG Data Interpretation: Atrial fibrillation rate [address] elevation or depression MDM Narrative Medical decision making narrative: Appropriate for admission. Will need stress test. Review with Cardiology and hospitalist. Agree for admit. Discharge Plan Departure Patient Disposition: Admitted as Observation Clinical Impression: Chest pain Admit Date/Time: 08/08/21 02:55 Admit Provider: Mirtha Marquez
[2021-08-07 21:38] LABS: Alanine Aminotransferase 10 IU/L (<35); Albumin 4.1 g/dL (3.5-5.0); Albumin Globulin Ratio 1.2 (1.0-2.8); Alkaline Phosphatase 116 U/L (38-126); Aspartate Aminotransferase 26 IU/L (14-36); BUN Creatinine Ratio 20.7 (6-22); Bilirubin Total 0.9 mg/dL (0.2-1.3); Blood Urea Nitrogen 18 mg/dL (7-17); Calcium 9.1 mg/dL (8.4-10.2); Carbon Dioxide 27 mmol/L (22-32); Chloride 103 mmol/L (98-107); Creatine Kinase < 20 U/L (30-135); Estimated Glomerular Filt Rate > 60 mL/min (>60); Globulin 3.5 g/dL (1.7-4.1); Glucose 99 mg/dL (80-110); HEMOLYSIS 26 (0-50); Lipase 45 U/L (23-300); Potassium 4.5 mmol/L (3.4-5.1); Sodium 140 mmol/L (137-145); Total Protein 7.6 g/dL (6.3-8.2)
[2021-08-07 21:39] LABS: Add Manual Diff / Slide Review NO; Basophils Absolute Auto 0 /uL (0-100); Basophils Percent Auto 0.7 % (0-2); Eosinophils Absolute Auto 0 /uL (0-450); Eosinophils Percent Auto 0.8 % (2-4); Hematocrit 39.2 % (36-46); Lymphocytes Absolute Auto 1300 /uL (1100-4500); Lymphocytes Percent Auto 20.2 % (25-40); Mean Corpuscular HGB Conc 33.2 % (30-36); Mean Corpuscular Hemoglobin 30.1 PG (26-34); Mean Corpuscular Volume 90.9 fL (80-100); Monocytes Absolute Auto 400 /uL (0-900); Monocytes Percent Auto 7.2 % (3-14); Neutrophils Absolute Auto 4400 /uL (1500-7000); Neutrophils Percent Auto 71.1 % (50-75); Platelet Count 250 X10^3/uL (150-400); Red Blood Cell Count 4.32 X10^6/uL (4.0-5.2); Red Cell Distribution Width 14.7 % (11.6-14.8); White Blood Cell Count 6.2 X10^3/uL (4.5-11.0)
[2021-08-07 21:49] LABS: Troponin I < 0.012 ng/mL (0.01-0.034)
[2021-08-07] MEDS: ASPIRIN EC 81 MG TABLET 243 MG PO (22:13)
[2021-08-07 22:42] LABS: COVID19 -Nasal RAPID Negative (Negative)
[2021-08-08] VITALS (36 sets, daily range): BP systolic 115–202; BP diastolic 65–108; PULSE 58–98; RESP 8–23; TEMP 36.2–36.4; O2SAT 93–99; BMI 20.4
[2021-08-08] MEDS: APIXABAN 5 MG TABLET PO ×3 (00:06→20:23)
[2021-08-08] MEDS: METOPROLOL ER 25 MG TABLET PO (00:06)
[2021-08-08 02:09] LABS: Troponin I < 0.012 ng/mL (0.01-0.034)
--- NOTE | 2021-08-08 03:02 | DI.NM.S_ITS ---
PROCEDURE: NM LENNIE PERF SPECT R&S PHARM Rest and pharmacological stress myocardial perfusion SPECT with gated imaging and ejection fraction RADIOPHARMACEUTICAL: 11.6 mCi Tc-99m tetrafosmin IV at rest and 27.3 mCi Tc-99m tetrafosmin IV at peak effect of pharmacological stress. [id number] was performed. INDICATIONS: chest pain TECHNIQUE: Radiopharmaceutical was injected at peak stress test, and also at rest. SPECT images were obtained. SPECT myocardial perfusion images were displayed in short axis, horizontal long axis, and vertical long axis views. Gated images were reviewed using Novaliq software. COMPARISON: None. CARDIAC STRESS: A pharmacologic stress test was performed under the supervision of an attending staff, using an infusion of Regadenoson. Hemodynamic data: There is normal blood pressure and heart rate response to pharmacologic stress. Symptoms: The patient denied anginal chest pain. EKG: No diagnostic changes of ischemia; no ectopy. FINDINGS: Raw data: There is good myocardial uptake of radiotracer. No significant motion artifacts. Pelj-ss-xzfbh ratio is 0.22 (normal is less than 0.38 for tetrafosmin tracer). Left ventricle function: Gated images demonstrate normal left ventricular wall thickening. No segmental wall motion abnormalities, however global hypokinesis noted. No transient ischemic dilation; TID is 0.91 (normal less than 1.3). Left ventricle resting end diastolic volume is 125 mL. Left ventricle stress ejection fraction is 47%; normal range is above 45%. Myocardial perfusion: There is a medium size, mild intensity, mid to distal fixed anterior and apical wall defect. IMPRESSION: No definite ischemia. There is a medium size, mild intensity, mid to distal fixed anterior and apical wall defect. While there is global hypokinesis, the contractility does not appear worse in the areas of the perfusion defect making this most likely consistent with breast attenuation. Dictated by: Luci Prieto D.O. on 08/08/2021 at 15:46 Approved by: Luci Prieto D.O. on 08/08/2021 at 16:22
--- NOTE | 2021-08-08 03:10 | P.HP_ITS ---
History of Present Illness History of Present Illness Date Patient Seen: 08/08/21 Chief complaint: Chest Pain Narrative: 86-year-old female with a history of atrial fibrillation anticoagulated on apixaban, history of heart failure, hypertension, hyperlipidemia, prior history of CVA, presents to the emergency department with chest pain. She took nitroglycerin at home and the pain resolved. States someone called the ambulance, but does not remember who. Denies shortness of breath, does endorse having pain on the left side of her neck, right arm. Denies nausea or vomiting, denies having diarrhea. Positive for urinary burning and constipation, has not had a bm in Patient previously here in late June for adult failure to thrive, per patient she is living in a better situation. Chest x-ray is only noting COPD with no consolidation. She is afebrile, blood pressure is 202/98 however in the ED her systolic blood pressure was actually 170s, heart rate 82, respiratory rate 20, oxygen saturation 96% on room air, she weighs 62.2 kg with a BMI of 20.2. CBC and chemistries are unremarkable, liver enzymes are within normal limits, troponins x2 are not negative, UA is negative for UTI and COVID-19 PCR is negative. She recently had a 2 day admission for adult failure to thrive. She has a history of atrial fibrillation and an echocardiogram was done on July 10 and she was found to have an EF of 35-40% likely due to ischemic cardiomyopathy. She was discharged on metoprolol and losartan. She states she and her son moved into the house they previously lived in and had to give up her trailer. 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) Asthma Breast cancer (~2001) CAD (coronary artery disease) Calcified nodule Cerebrovascular accident (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 right middle cerebral artery (04/27/17) Cervical cancer, FIGO stage I Cholelithiasis Chronic back pain Developmental disorder Diarrhea Essential hypertension (02/19/12) Failure to thrive in adult Fibrocystic breast disease GERD (gastroesophageal reflux disease) History of colon polyps (02/19/12) History of left breast cancer (~2008) Hyperlipidemia IBS (irritable bowel syndrome) Measles 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, bilateral Personal history of other malignant neoplasm of skin (02/19/12) 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) Systolic congestive heart failure with reduced left ventricular function, NYHA class 2 (10/26/10) Surgical History Anesthesia Status post arthroscopy Status post biopsy (~2014) Status post breast lumpectomy (~2008) Status post cholecystectomy Status post coronary artery bypass graft Status post hysterectomy (~2009) Family & Social History Family History Father Myocardial infarct Mother Maternal complication related to childbirth Sister Traumatic amputation Social History: household members children Safety & Behavioral: Feels Safe in Current Yes Environment Been Physically Hurt or No Threatened By a Person Tobacco & Substance use: Smoking Status Never smoker alcohol intake never alcohol intake frequency holiday/special occasion Substance Use Type does not use Meds Home Medications and Allergies Home Medications Medication Instructions Recorded Confirmed Type Handicap Parking #1 ea 06/04/18 07/10/21 Rx inhalational spacing device #1 ea 03/24/19 07/10/21 Rx (Aerochamber MV spacer) apixaban 5 mg tablet 5 mg PO BID #180 tabs 08/01/20 07/10/21 Rx nitroglycerin 0.4 mg sublingual See Rx Instructions sublingual PRN 03/18/21 07/10/21 Rx tablet (Nitrostat) PRN Chest Pain #30 tabs gabapentin 300 mg capsule 300 mg PO TID #270 caps 04/10/21 07/10/21 Rx (Neurontin) atorvastatin 40 mg tablet 40 mg PO BEDTIME #90 tabs 05/03/21 07/10/21 Rx metoprolol tartrate 25 mg tablet 12.5 mg PO DAILY #45 tabs 05/03/21 07/10/21 Rx diclofenac sodium 1 % topical gel 2 g topical QID #100 grams 06/26/21 07/10/21 Rx losartan 50 mg tablet 50 mg PO DAILY #90 tabs 07/02/21 07/10/21 Rx pantoprazole 40 mg tablet,delayed 40 mg PO DAILY #90 tabs 07/02/21 07/10/21 Rx release hydrocodone 5 mg-acetaminophen 325 1 tab PO BID PRN pain #20 tabs 07/23/21 Rx mg tablet Allergies Allergy/AdvReac Type Severity Reaction Status Date / Time furosemide [FUROSEMIDE] Allergy Mild RASH Verified 07/09/21 18:19 sertraline [SERTRALINE] Allergy Mild FEELS Verified 07/09/21 18:19 DRUGGED lisinopril AdvReac Mild Cough Verified 07/09/21 18:19 Review of Systems Review of Systems ROS: Yes All systems reviewed with the patient and are negative except as otherwise documented Exam Vital Signs (past 8 hours): - 08/07/21 21:05 08/08/21 00:06 08/08/21 01:00 Temperature 97.7 F Pulse Rate 118 H 98 H 82 Respiratory Rate 20 Blood Pressure 201/119 H 191/91 H 202/98 H Pulse Oximetry 96 Oxygen Delivery Method Room Air Oxygen Delivery Method Room Air Narrative Exam Narrative: Gen: Alert, oriented, chronically ill appearing and cachectic 56 y.o. female, asleep but arousable HEENT: normocephalic, atraumatic, conjunctiva clear, sclera non-icteric, oral mucosa pink and moist Neck: supple, full ROM, no JVD, trachea is midline Resp: Lungs CTA, non-labored breathing CV: RRR, no murmur or rubs Abd: soft, non-tender, normoactive BTs Skin: no lesions or rashes, dry and intact Neuro: Alert and oriented X 4 w/no focal deficits. Speech clear and coherent. Extremities: moves all 4 extremities, is ambulatory, negative [place]?s sign Psyche: normal mood and affect. Objective Labs Result Diagrams: 08/07/21 20:07 08/07/21 20:07 Labs: Laboratory Results - last 24 hr 08/07/21 08/07/21 08/07/21 20:07 20:07 22:12 WBC 6.2 RBC 4.32 Hgb 13.0 Hct 39.2 MCV 90.9 MCH 30.1 MCHC 33.2 RDW 14.7 Plt Count 250 Neut % (Auto) 71.1 Lymph % (Auto) 20.2 L [place] % (Auto) 7.2 Eos % (Auto) 0.8 L Baso % (Auto) 0.7 Neut # (Auto) 4400 Lymph # (Auto) 1300 [place] # (Auto) 400 Eos # (Auto) 0 Baso # (Auto) 0 Sodium 140 Potassium 4.5 Chloride 103 Carbon Dioxide 27 BUN 18 H Creatinine 0.87 Estimated GFR > 60 BUN/Creatinine Ratio 20.7 Glucose 99 Calcium 9.1 Magnesium 2.0 Total Bilirubin 0.9 AST 26 ALT 10 Alkaline Phosphatase 116 Total Creatine Kinase < 20 L CK-MB (CK-2) TNP CK-MB (CK-2) Rel Index TNP Troponin I < 0.012 Total Protein 7.6 Albumin 4.1 Globulin 3.5 Albumin/Globulin Ratio 1.2 Lipase 45 SARS-CoV-2 (PCR) Negative 08/08/21 01:30 WBC RBC Hgb Hct MCV MCH MCHC RDW Plt Count Neut % (Auto) Lymph % (Auto) [place] % (Auto) Eos % (Auto) Baso % (Auto) Neut # (Auto) Lymph # (Auto) [place] # (Auto) Eos # (Auto) Baso # (Auto) Sodium Potassium Chloride Carbon Dioxide BUN Creatinine Estimated GFR BUN/Creatinine Ratio Glucose Calcium Magnesium Total Bilirubin AST ALT Alkaline Phosphatase Total Creatine Kinase CK-MB (CK-2) CK-MB (CK-2) Rel Index Troponin I < 0.012 Total Protein Albumin Globulin Albumin/Globulin Ratio Lipase SARS-CoV-2 (PCR) Assessment & Plan Assessment & Plan narrative: Rosie Garrido is an 86-year-old female and will be observed overnight in order to undergo pharmacological stress testing. 1. Chest pain, resolved with nitroglycerin during the day * She will undergo pharmacological stress testing * Will need to hold her metoprolol. * Apparently she was given metoprolol in the ED, so obtaining a stress test may end up being deferred to Thursday morning. * Nitro if she has any more episodes of chest pain 2. Atrial fibrillation, likely permanent * This was observed in her EKG * Continue home dose of apixaban 3. CAD/dyslipidemia, chronic * Continue home dose of atorvastatin 40 mg po daily 4. GERD, chronic * Continue home dose of pantoprazole 40 mg po daily 5. Congestive heart failure with a Chads 2 Vas score of 8, chronic * Due to ischemic cardiomyopathy * She is currently taking a beta mathew and an ARB. VTE Prophylaxis: Wells risk score 1.5 [X] Bilateral SCDs Patient is currently anticoagulated on Apixaban. Patient is placed into observation as her stay is not expected to exceed 2 midnights. FEN: IV fluids: saline lock, diet: heart healthy, labs: CBC, C/BMP, liver enzymes, Mag, PT/INR Consultants None care and involvement in the patient?s care is appreciated. Dispo: probable d/c to home Code status: Full code as discussed with the patient who identifies her son Heath as her surrogate and POA. [X] I have utilized all available immediate resources to obtain, update, or review of the patient's current medications COVID-19 COVID-19 status: Negative Result date/Date tested (Pos, Neg/Pending): 08/08/21 Scores CHADS-VASc Congestive heart failure: yes Hypertension: yes Age 75 years or older: yes Diabetes mellitus: no Stroke, TIA, or TE: yes Vascular disease: yes Age 65 to 74 years: no Sex category (female): Female CHADS-VASc Score: 8 Wells' Criteria for PE Clinical signs and symptoms of DVT: No PE is #1 Dx or equally likely: No Heart rate > 100: No Immobilization at least 3 days or surg in previous 4 weeks: No History of PE or DVT: No Hemoptysis: No Malignancy w/Treatment within 6 months or palliative: No Wells' PE Score total: 0 Quality VTE Deep Vein Thrombosis/Pulmonary Embolism Present on Admission: No MIPS - Admit I confirm the patient?s Advance Care Plan is present, Code status is documented, Surrogate decision maker is in patient?s record [If Yes, STOP here]: Yes MIPS - DC The patient has current or prior documentation of left ventricular ejection fraction (LVEF) less than 40%, or moderate or severely depressed left ventricular systolic function.: Yes A. The patient was prescribed or already taking an Angiotensin-Converting Enzyme (HIRAM) Inhibitor, or Angiotensin Receptor Mathew (ARB).: Yes B. The patient was prescribed or already taking a beta-mathew. [If Yes to Both A & B, STOP here]: Yes
[2021-08-08 03:12] LABS: Bacteria Urine None Seen; Hyaline Casts Urine 0-1/LPF; RBC Urine None Seen (0-5/HPF); Squamous Epithelial Cell Urine 1-5 /HPF (0-5/HPF); WBC Urine 1-5/HPF (0-5/HPF)
[2021-08-08 05:31] LABS: Cholesterol 170 mg/dL (140-199); HDL Cholesterol 58 mg/dL (40-60); LDL Cholesterol Calculated 90 mg/dL (<100); Triglycerides 111 mg/dL (35-150)
[2021-08-08] MEDS: LOSARTAN 50 MG TABLET PO (06:14)
--- NOTE | 2021-08-08 08:26 | PC.NURSE ---
Patient went to Stress test at this time in wheelchair.
[2021-08-08] MEDS: PANTOPRAZOLE DR 40 MG TABLET PO (10:46)
[2021-08-08] MEDS: GABAPENTIN 300 MG CAPSULE PO ×3 (10:47→20:23)
--- NOTE | 2021-08-08 12:20 | PC.NURSE ---
Headed to second portion of stress test at this time.
--- NOTE | 2021-08-08 12:51 | CM.IDA ---
DCP Assessment Patient is 86 y/o female who presents to via EMS due to concern for chest pain. Patient was admitted on 07/09/21 due to concern for LOC. Patient has Medicare and for life, patient's PCP is Lizet Vázquez. Patient has hx of AFib, CVA, Breast Cancer, hx of admissions for failure to thrive and r/o CVA. AIR CONDITIONING INSULATION INSTALLER attempted to meet with patient with APS SW present but patient was already sent to stress test and then will move to acute care due to admission. AIR CONDITIONING INSULATION INSTALLER receives phone call from assigned APS SW Anya Palomino (Ph. # [phone]), it is reported that patient's current living situation is unsafe and it is recommended that patient move to a [facility] or [facility]. AIR CONDITIONING INSULATION INSTALLER endorses that shelter care plans usually take place with coordination of the family and/or Medicaid case workers. AIR CONDITIONING INSULATION INSTALLER endorses that patient does not have Medicaid insurance and APS SW states that patient's son is not able to help at all. AIR CONDITIONING INSULATION INSTALLER calls [facility] and inquires if patient is in the Medicaid/[place] or [facility] system. It is reported that patient does not have Medicaid hx but DCP can fax over a [facility] intake request form. AIR CONDITIONING INSULATION INSTALLER to email form to assigned DCP. APS BREA Sanjuanita arrives to ED to assess patient but patient went to stress test, it was reported that an APS SW will attempt to meet with patient tomorrow for further assessment. AIR CONDITIONING INSULATION INSTALLER provides phone number for DCP desk. Plan: Patient is admitted to acute care, f/u with PT/OT and attempt SNF placement due to concern for patient's current living situation. 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 Yes Advance Directives on File No History Provided By Medical Record Has Patient been admitted in last 30 Yes days? Comment Patient was admitted to from 07/09/21 to 07/12/21 Comment Per APS, it is a bedroom above a garage without running water, several stairs and unsafe for patient to return to. Household Members children Type of transporation used prior to Relies on Others admit Independent with ADL's AIR CONDITIONING INSULATION INSTALLER unable to meet with pt. Is patient alert and oriented? AIR CONDITIONING INSULATION INSTALLER unable to meet with pt. Needs Assistance With Meal Prep,Toileting,Managing Medications,Home Chores / Shopping Caregiver for Another No DME Already Rented / Owned Bedside [employer] Faxed No Barriers to Discharge Yes Comment Per APS, it is not safe for patient to d/c to home. SNF rehab would be the most appropriate plan of d/c. Per APS, it is reported that patient's son is not supportive or helpful towards rat exterminator planning. APS recommends [facility] or [facility] as a shelter care plan. Discharge Plan Intermediate Facility Transportation Arrangement facility van if SNF Review Status In Process Please Provide Date Initial DC 08/08/21 Assessment Was Performed
--- NOTE | 2021-08-08 15:33 | CM.DPC ---
DCP Cont: Per MD, awaiting stress test results and then pt likely stable for d/c pending results and currently no other medical needs at this time. Pt does not carry an official dementia dx but has some developmental disorder in her medical dx list but no further documentation and pt presents as having likely some cognitive deficits but not deemed incompetent at this time. BREA met bedside with pt and explained role and she confirms that she still lives with her son Heath who has her DPOA and son is not working and helps take care of me. Pt states her living situation is slightly better than a month ago but did not elaborate further. SW inquired with pt about her preference for d/c and if she would be willing to go to SNF. Pt adamantly refuses SNF and states Karuna been to SNF for 2 and a half months before and I will not go back. SW inquired if pt has applied for Medicaid and she states she does not think so and states she does not currently get food stamps or financial assist from Medicaid at this time and currently only has social security for income. Pt states her preference is to d/c home when stable and ideally would love my own small apartment. SW inquired if pt would be willing to consider [facility] or [facility] and pt states maybe, that might be nice but I'd rather have my own apt. BREA asked if pt would be willing to go to SNF while trying to get skilled nursing care plans set up and pt still strongly declines. BREA attempted to call pt's son Heath [phone] and left msg inquiring if he has applied for Medicaid for pt and left copy of Medicaid LTC application in pt's chart for discharge and requested call back. BREA called assigned APS Anya Palomino [phone] to discuss the current concerns with pt's living situation. BREA updated RN and MD and that if pt is still considered able to make her own decisions, even if unsafe or poor decisions, she currently has the right to refuse SNF or alternative placement at this time. If pt's son is agreeable with d/c from the hospital then currently no legal right to detain or refuse discharge. Barriers to SNF are lack of pt's LTC plan and her current refusal of SNF. Pt currently not enrolled in Medicaid for alternative LTC placement. APS and Medicaid will need to be followed up after discharge if son agreeable with d/c while working on better LTC plans. SW faxed [facility] Expedited Referral, although pt not currently showing as enrolled in Medicaid, in the hopes that pt can be expedited in Medicaid system. Plan: SW to follow for continued attempts at getting pt and son to complete Medicaid application to fax towards LTC planning if pt remains in the hospital. JOSHUA Bowie
[2021-08-08] MEDS: ACETAMINOPHEN 325 MG TABLET 650 MG PO (16:20)
--- NOTE | 2021-08-08 18:59 | P.DS_ITS ---
History of Present Illness History of Present Illness Date Patient Seen: 08/08/21 Chief complaint: Chest Pain Narrative: Per admitting provider: 86-year-old female with a history of atrial fibrillation anticoagulated on apixaban, history of heart failure, hypertension, hyperlipidemia, prior history of CVA, presents to the emergency department with chest pain. She took nitroglycerin at home and the pain resolved. States someone called the ambulance, but does not remember who. Denies shortness of breath, does endorse having pain on the left side of her neck, right arm. Denies nausea or vomiting, denies having diarrhea. Positive for urinary burning and constipation, has not had a bm in Patient previously here in late June for adult failure to thrive, per patient she is living in a better situation. Chest x-ray is only noting COPD with no consolidation. She is afebrile, blood pressure is 202/98 however in the ED her systolic blood pressure was actually 170s, heart rate 82, respiratory rate 20, oxygen saturation 96% on room air, she weighs 62.2 kg with a BMI of 20.2. CBC and chemistries are unremarkable, liver enzymes are within normal limits, troponins x2 are not negative, UA is negative for UTI and COVID-19 PCR is negative. She recently had a 2 day admission for adult failure to thrive. She has a history of atrial fibrillation and an echocardiogram was done on July 10 and she was found to have an EF of 35-40% likely due to ischemic cardiomyopathy. She was discharged on metoprolol and losartan. She states she and her son moved into the house they previously lived in and had to give up her trailer. Discharge Providers Provider Date of admission: 08/08/21 02:55 Discharge Date: 08/08/21 Consults: 08/07/21 21:08 [place] to [facility] [place] Sales Mgr Stat Comment: Discharge provider: Samir Bustamante MD Summary Hospital Course Discharge Diagnosis: 1. Atypical chest pain, resolved 2. Atrial fibrillation 3. CAD 4. Hyperlipidemia 5. GERD 6. CHFrEF, chronic Hospital Course: Ms. Garrido was admitted to the hospital with an episode of chest pain. Reportedly it was relieved with nitro. When I examined her, she had reproducible left sided chest pain. Otherwise her symptoms completely resolved in the hospital. She had no shortness of breath. She had troponins trended and negative. She had a low risk stress test. She was stable for discharge. She has had an APS report filed which noted concern about living situation, and recommendation for placement. Patient clearly could make decisions and was adamant she did not want to be in a facility and wanted to be discharged home. Case management was aware and in discussion with APS about follow up after discharge. Exam Vital Signs (past 8 hours): - 08/08/21 11:00 08/08/21 11:30 08/08/21 12:00 Temperature Pulse Rate 71 58 L 64 Respiratory Rate 16 16 11 L Blood Pressure 189/99 H Pulse Oximetry Oxygen Delivery Method Oxygen Flow Rate 08/08/21 13:58 08/08/21 13:59 08/08/21 14:00 Temperature 97.1 F L 97.1 F L Pulse Rate 82 82 Respiratory Rate 18 18 Blood Pressure 169/92 H 169/92 H Pulse Oximetry 98 98 96 Oxygen Delivery Method Room Air Oxygen Flow Rate 0 08/08/21 18:00 Temperature 97.5 F L Pulse Rate 61 Respiratory Rate 16 Blood Pressure 148/92 H Pulse Oximetry 99 Oxygen Delivery Method Oxygen Flow Rate 0 Oxygen Delivery Method Room Air Oxygen Flow Rate 0 Narrative Exam Narrative: GEN: no acute distress PULM: clear bilaterally CV: regular rate and rhythm, tender to palpation over left chest Abd: soft, non-tender, normal bowel sounds Objective Labs Result Diagrams: 08/07/21 20:07 08/07/21 20:07 Labs: Laboratory Results - last 24 hr 08/07/21 08/07/21 08/07/21 20:07 20:07 22:12 WBC 6.2 RBC 4.32 Hgb 13.0 Hct 39.2 MCV 90.9 MCH 30.1 MCHC 33.2 RDW 14.7 Plt Count 250 Neut % (Auto) 71.1 Lymph % (Auto) 20.2 L [place] % (Auto) 7.2 Eos % (Auto) 0.8 L Baso % (Auto) 0.7 Neut # (Auto) 4400 Lymph # (Auto) 1300 [place] # (Auto) 400 Eos # (Auto) 0 Baso # (Auto) 0 Sodium 140 Potassium 4.5 Chloride 103 Carbon Dioxide 27 BUN 18 H Creatinine 0.87 Estimated GFR > 60 BUN/Creatinine Ratio 20.7 Glucose 99 Calcium 9.1 Magnesium 2.0 Total Bilirubin 0.9 AST 26 ALT 10 Alkaline Phosphatase 116 Total Creatine Kinase < 20 L CK-MB (CK-2) TNP CK-MB (CK-2) Rel Index TNP Troponin I < 0.012 Total Protein 7.6 Albumin 4.1 Globulin 3.5 Albumin/Globulin Ratio 1.2 Triglycerides Cholesterol LDL Cholesterol, Calc HDL Cholesterol Lipase 45 Urine RBC Urine WBC Ur Squamous Epith Cells Urine Bacteria Hyaline Casts Ur Culture Indicated? Micro UA Comment SARS-CoV-2 (PCR) Negative 08/08/21 08/08/21 08/08/21 01:30 01:30 02:34 WBC RBC Hgb Hct MCV MCH MCHC RDW Plt Count Neut % (Auto) Lymph % (Auto) Lasalle % (Auto) Eos % (Auto) Baso % (Auto) Neut # (Auto) Lymph # (Auto) [place] # (Auto) Eos # (Auto) Baso # (Auto) Sodium Potassium Chloride Carbon Dioxide BUN Creatinine Estimated GFR BUN/Creatinine Ratio Glucose Calcium Magnesium Total Bilirubin AST ALT Alkaline Phosphatase Total Creatine Kinase CK-MB (CK-2) CK-MB (CK-2) Rel Index Troponin I < 0.012 Total Protein Albumin Globulin Albumin/Globulin Ratio Triglycerides 111 Cholesterol 170 LDL Cholesterol, Calc 90 HDL Cholesterol 58 Lipase Urine RBC None seen Urine WBC 1-5/hpf Ur Squamous Epith Cells 1-5 /hpf Urine Bacteria None seen Hyaline Casts 0-1/lpf Ur Culture Indicated? 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) Asthma Breast cancer (~2001) CAD (coronary artery disease) Calcified nodule Cerebrovascular accident (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 right middle cerebral artery (04/27/17) Cervical cancer, FIGO stage I Cholelithiasis Chronic back pain Developmental disorder Diarrhea Essential hypertension (02/19/12) Failure to thrive in adult Fibrocystic breast disease GERD (gastroesophageal reflux disease) History of colon polyps (02/19/12) History of left breast cancer (~2008) Hyperlipidemia IBS (irritable bowel syndrome) Measles 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, bilateral Personal history of other malignant neoplasm of skin (01/03/13) 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) Systolic congestive heart failure with reduced left ventricular function, NYHA class 2 (10/26/10) Surgical History Anesthesia Status post arthroscopy Status post biopsy (~2014) Status post breast lumpectomy (~2008) Status post cholecystectomy Status post coronary artery bypass graft Status post hysterectomy (~2009) Family History Father Myocardial infarct Mother Maternal complication related to childbirth Sister Traumatic amputation Social History household members: children Smoking Status: Never smoker alcohol intake: never Discharge Plan Discharge Plan Patient Disposition: Home Provider Discharge Comment: Ms. Garrido came to the hospital with chest pain. She did not have a heart attack. Her blood tests were reassuring. Her stress test was not abnormal. She should follow up with her PCP in one week. Discharge orders & Medications Prescriptions: Continued (DME) Aerochamber MV Spacer See Rx Instructions .ROUTE .MEDSUPPLY Qty: 1 0RF Rx Instructions: As directed apixaban 5 mg tablet 5 mg PO BID Qty: 180 1RF gabapentin [Neurontin] 300 mg capsule 300 mg PO TID Qty: 270 0RF Hold Instructions: stopped at [facility] losartan 50 mg tablet 50 mg PO DAILY Qty: 90 1RF pantoprazole 40 mg tablet,delayed release (DR/EC) 40 mg PO DAILY Qty: 90 0RF hydrocodone-acetaminophen 5-325 mg tablet 1 tab PO BID PRN (Reason: pain) Qty: 20 0RF nitroglycerin [Nitrostat] 0.4 mg tablet, sublingual See Rx Instructions Sublingual PRN PRN (Reason: Chest Pain) Qty: 30 0RF Rx Instructions: 1 tab under tongue every five minutes up to three times, call 911 if no relief. atorvastatin 40 mg tablet 40 mg PO BEDTIME Qty: 90 0RF metoprolol tartrate 25 mg tablet 12.5 mg PO DAILY Qty: 45 0RF (DME) Handicap Parking Qty: 1 0RF Dose Instruction: As directed Rx Instructions: Patient unable to walk 200 feet without stopping to rest. diclofenac sodium 1 % gel 2 g topical QID Qty: 100 0RF Rx Instructions: apply to single elbow, wrist or hand; for hand includes palm/fingers/back of hand Diet/Activity/Treatments Diet: Regular Discharge Data Attending Provider: Mirtha Martinez VTE Deep Vein Thrombosis/Pulmonary Embolism Present on Admission: No
--- NOTE | 2021-08-08 19:24 | PC.NURSE ---
Pt arrived to room 214 at 1330. VSS, afebrile. Afib on telemetry she is slightly confused A&Ox2. She is able to complete some of admission questions but defers to son for medications. CM and RN called son as patient has discharge orders after stress test this shift. Unable to reach son. Patient eating fair amount 25% for dinner. She has an unsteady gait and assisted to BSC voiding and has a small BM. She is given tylenol for generalized pain this evening and is sleeping in recliner this evening.
[2021-08-08] MEDS: ATORVASTATIN 20 MG TABLET 40 MG PO (20:23)
[2021-08-09] VITALS (11 sets, daily range): BP systolic 121–184; BP diastolic 61–99; PULSE 58–72; RESP 16–18; TEMP 35.8–36.6; O2SAT 94–99
[2021-08-09] MEDS: LOSARTAN 50 MG TABLET PO (09:55)
[2021-08-09] MEDS: PANTOPRAZOLE DR 40 MG TABLET PO (09:55)
[2021-08-09] MEDS: GABAPENTIN 300 MG CAPSULE PO ×3 (09:55→21:41)
[2021-08-09] MEDS: APIXABAN 5 MG TABLET PO ×2 (09:56→21:41)
[2021-08-09] MEDS: METOPROLOL IR 25 MG TABLET 12.5 MG PO (09:57)
[2021-08-09] MEDS: NITROGLYCERIN 0.4 MG SL TAB SL (10:15)
--- NOTE | 2021-08-09 11:59 | DIET.CONS ---
Dietary Consultation Note Admission Date: 08/08/2021 02:55 Assessment: 86 y/o F admitted with chest pain. H/o failure to thrive. Consulted for poor nutrition. States she lives with her son, who cooks meals. Endorses two meals per day, small meals usually. Poor dentition, no dentures. States her appetite has been impaired but unclear why. BMI low for age (<21). Weight hx indicates -5.5 kg over 3 months (8.5% Severe). 08/08/21 59.1kg 05/03/21 64.6kg Diet recall: L: 1 TBS mashed potatoes, 3oz meatloaf, few green beans D: half bowl cereal Beverages: water, diet coke, +/- ensure Nutrition physical exam: depressed temples and interosseous muscle, boxed shoulders, moderate protrusion of clavicle Ht: 170.18 cm Wt: 59.1 kg BMI: 20.4 Last BM: 08/08/21 (08/08/21 19:00) MNA: 9 Timur Score: 19 Diet: 08/08/21 Breakfast Heart Healthy Diet Diet Modifications: Nutrition Percent Meal Consumed 100% 08/09/21 08:45 Percent Meal Consumed 90 08/08/21 18:00 Labs: RBC 4.32 X10^6/uL (4.0-5.2) 08/07/21 20:07 Hgb 13.0 g/dL (12.0-16.0) 08/07/21 20:07 Hct 39.2 % (36-46) 08/07/21 20:07 Creatinine 0.87 mg/dL (0.52-1.04) 08/07/21 20:07 Nutrition Diagnosis: Severe acute protein calorie malnutrition r/t impaired appetite aeb >7.5% weight loss in three months, BMI <21 for age >65 yrs, physical signs of malnutrition, and inadequate PO Interventions: 1. ONS BID to support pro and kcal intake 2. Easy chew diet order 3. Discussed reg use of ONS at home prn EER: 1477 kcals (25 kcals/kg per BMI) PRO 89-106 (1.5-1.8g/kg per malnutrition) Monitoring/Evaluations: weight, PO, ONS tolerance Electronically Signed by: Lilia Mendoza 08/09/21 11:[address] [id number]
--- NOTE | 2021-08-09 14:41 | CM.DPC ---
DCP Cont: Per MD, pt had some stated chest pressure and abdominal pain and MD completed assessment and no further medical needs at this time as pt mostly has general pains. Per explosives operator, pt with malnutrition with loss of 8.5% body weight in last month and meets criteria for Failure to Thrive. Discussion during rounds of possible Hospice discussion if pt is not wanting SNF rehab or medical interventions and MD to consider and possibly approach with pt. SW has continued to attempt to call pt's son/DPOA Heath [phone] and left msgs with no return response and temporary staff accountant have also attempted. Pt continues to decline going to SNF and placement at SNF would be difficult with pt's barrier of unsafe living situation and APS involvement and lack of enrollment in Medicaid. SW called pt's assigned APS worker Anya Palomino ([phone]) again and Anya answered and confirms she has been investigating pt for the past month and has been to pt's dwelling. Anya states that pt lives in a room above a garage with a bed, no running water, no bathroom but a bedside commode, microwave and no sink for dishes. Pt and son are basically squatting and current property batch or continuous still operator are attempting to file eviction orders with the court. APS has been attempting to get pt and son agreeable with moving pt into Assisted Living or LTC facility but pt and son have been waffling. APS Anya confirms that right now as pt is deemed capable of still making her own decisions, they have no legal authority to remove her or take away her rights. BREA discussed the barriers of getting pt to SNF even if pt was agreeable and inability to get pt to LTC as she is not currently enrolled in Medicaid and APS has not been able to get son Heath to disclose what [employer] pt's Social Security is going into and what the money is being spent on. APS Anya states she will be on [facility] today and willing to go by their dwelling to see if son Heath is there as he was not present at the dwelling when EMS was called for safety check on pt since she did not make her PCP appointment. Plan: Pt medically stable to d/c but cannot contact pt's son and pt is not independent with ADLs and cannot be discharged without confirming son will provide transport or be at home when pt discharges. JOSHUA Bowie
--- NOTE | 2021-08-09 15:22 | PM.PN.1 ---
Subjective Subjective Date Patient Seen: 08/09/21 Interval history: 86-year-old female with known coronary artery disease, permanent atrial fibrillation on apixaban, history of div hurt failure ( unknown if systolic or diastolic), hypertension, hyperlipidemia, and prior stroke who was admitted with chest pain. Patient underwent stress testing and had a low risk scan. She was approved for discharge yesterday, but staff could not get her son on the phone who is her POA. She remained in the hospital pending his ability to take her home. APS referral was made yesterday in light of ongoing caregiving concerns. Care management notes they have been unable to get in touch with the son today as well. Earlier this afternoon, patient complained of chest pain which was recurrent. She was describing it as crushing. EKG was performed which revealed atrial fibrillation with no acute changes. She was given nitroglycerin with no dramatic improvement. I am seeing her shortly thereafter. She states that she hurts all over. She describes the chest pain as crushing but also describes feeling dizzy like things are spinning, complains of abdominal pain, and burning pain down her left leg. She also complains of right-sided chest pain. She states she has been anxious and takes a nerve pill at baseline and does not believe she has had It here. Exam Vital Signs (past 8 hours): - 08/09/21 08:00 08/09/21 09:55 08/09/21 10:15 Temperature 96.4 F L Pulse Rate 58 L 70 69 Respiratory Rate 16 Blood Pressure 184/89 H 175/99 H 153/68 H Pulse Oximetry 99 Oxygen Delivery Method Oxygen Flow Rate 0 08/09/21 11:46 08/09/21 08:00 Temperature 97.4 F L Pulse Rate 63 Respiratory Rate 16 Blood Pressure 157/72 H Pulse Oximetry 97 94 Oxygen Delivery Method Room Air Oxygen Flow Rate 0 Oxygen Delivery Method Room Air Oxygen Flow Rate 0 Narrative Exam Narrative: GEN: frail-appearing elderly female,Alert and oriented x 2, appears anxious HEENT:NC, Face symmetric CHEST: Respiratory excursions symmetric, CTAB CV: RRR, no M/R/G, she does have point tenderness across her entire chest anywhere I place the stethoscope ABD: Soft, mildly diffusely tender, nondistended,, BT present in all 4 quadrants, no organomegaly or masses appreciated EXTR: warm, well perfused, no C/C/E SKIN: warm and dry, no rash NEURO: Alert and oriented x 3, nonfocal MUSCULOSKEL: patient complains of pain in most spots that I touch her, shoulder, chest, abdomen, legs Objective ECG Impression: atrial fibrillation, no acute ST or T-wave changes, unchanged from prior Labs Result Diagrams: 08/07/21 20:07 08/07/21 20:07 [facility] Medical History Abdominal pain Acute pancreatitis Anticoagulated Anxiety 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) Asthma Breast cancer (~2001) CAD (coronary artery disease) Calcified nodule Cerebrovascular accident (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 right middle cerebral artery (04/27/17) Cervical cancer, FIGO stage I Cholelithiasis Chronic back pain Developmental disorder Diarrhea Essential hypertension (02/19/12) Failure to thrive in adult Fibrocystic breast disease GERD (gastroesophageal reflux disease) History of colon polyps (02/19/12) History of left breast cancer (~2008) Hyperlipidemia IBS (irritable bowel syndrome) Measles 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, bilateral Personal history of other malignant neoplasm of skin (02/19/12) 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 Chest pain patient presented with complaints of chest pain. Negative workup for OK. Low risk cardiac stress test. Recurrent symptoms today which she described the nurses as being focal and to me as being more generalized. EKG is unchanged. Pain was minimally responsive to nitroglycerin. Suspect this is musculoskeletal in origin. She appears to have some migratory pain and anxiety. 2. Atrial fibrillation, felt to be permanent Remains rate controlled. Is on chronic apixaban. 3. Coronary artery disease Uncertain as to her previous cardiac interventions. She does have a scar noted over her left chest which she states was related to cancer surgery. She also has of substernal scar which she states was related to her heart disease. I am unable to verify her history. 4. Chronic GERD Suspect this could be contributing to her chest pain. It may be she has esophageal spasm that is responsive to nitroglycerin. 5. CHF Appears euvolemic presently. 6. Psychosocial issues / caregiving issues APS referral was sent yesterday. Care management is talking to APS again today regarding difficulty contacting the POA for discharge. 7. Cognitive impairment/dementia Patient is unable to tell me where she lives. She states she lives in the [facility]. Suspect some degree of underlying dementia. Will request that a [place] be performed. 8. Acute severe protein calorie malnutrition Patient has had a 7 and 0.5% weight loss over the last 3 months. Oral nutritional supplementation as tolerated. code status Full prophylaxis On apixaban disposition Patient is medically ready for discharge, but we were unable to verify caregiving and safety at home. Time Spent With Patient Critical Care time: I spent a total of [] minutes of critical care time on this patient's care today; this time is exclusive of procedural time. Quality VTE Deep Vein Thrombosis/Pulmonary Embolism Present on Admission: No
[2021-08-09] MEDS: ACETAMINOPHEN 325 MG TABLET 650 MG PO (18:29)
[2021-08-09] MEDS: ATORVASTATIN 20 MG TABLET 40 MG PO (21:42)
[2021-08-10] VITALS (8 sets, daily range): BP systolic 113–166; BP diastolic 51–113; PULSE 65–110; RESP 16–18; TEMP 35.7–36.6; O2SAT 92–98
[2021-08-10 07:02] LABS: Add Manual Diff / Slide Review NO; Basophils Absolute Auto 0 /uL (0-100); Basophils Percent Auto 0.7 % (0-2); Eosinophils Absolute Auto 200 /uL (0-450); Eosinophils Percent Auto 2.6 % (2-4); Hematocrit 34.4 % (36-46); Hemoglobin 11.4 g/dL (12.0-16.0); Lymphocytes Absolute Auto 2100 /uL (1100-4500); Lymphocytes Percent Auto 31.7 % (25-40); Mean Corpuscular HGB Conc 33.1 % (30-36); Mean Corpuscular Hemoglobin 29.8 PG (26-34); Monocytes Absolute Auto 700 /uL (0-900); Monocytes Percent Auto 10.3 % (3-14); Neutrophils Absolute Auto 3700 /uL (1500-7000); Neutrophils Percent Auto 54.7 % (50-75); Platelet Count 242 X10^3/uL (150-400); Red Blood Cell Count 3.82 X10^6/uL (4.0-5.2); Red Cell Distribution Width 15.2 % (11.6-14.8); White Blood Cell Count 6.7 X10^3/uL (4.5-11.0)
[2021-08-10 07:09] LABS: BUN Creatinine Ratio 41.1 (6-22); Blood Urea Nitrogen 39 mg/dL (7-17); Calcium 8.8 mg/dL (8.4-10.2); Carbon Dioxide 27 mmol/L (22-32); Chloride 104 mmol/L (98-107); Estimated Glomerular Filt Rate 59 mL/min (>60); Glucose 94 mg/dL (80-110); HEMOLYSIS < 15 (0-50); Magnesium 2.1 mg/dL (1.6-2.3); Potassium 4.8 mmol/L (3.4-5.1); Sodium 137 mmol/L (137-145)
[2021-08-10] MEDS: PANTOPRAZOLE DR 40 MG TABLET PO (08:46)
[2021-08-10] MEDS: LOSARTAN 50 MG TABLET PO (08:46)
[2021-08-10] MEDS: APIXABAN 5 MG TABLET PO ×2 (08:46→21:03)
[2021-08-10] MEDS: GABAPENTIN 300 MG CAPSULE PO ×2 (08:46→21:03)
[2021-08-10] MEDS: METOPROLOL IR 25 MG TABLET 12.5 MG PO (08:47)
--- NOTE | 2021-08-10 08:50 | OT.IP.EVAL ---
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) Asthma Breast cancer (~2001) CAD (coronary artery disease) Calcified nodule Cerebrovascular accident (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 right middle cerebral artery (04/27/17) Cervical cancer, FIGO stage I Cholelithiasis Chronic back pain Developmental disorder Diarrhea Essential hypertension (02/19/12) Failure to thrive in adult Fibrocystic breast disease GERD (gastroesophageal reflux disease) History of colon polyps (02/19/12) History of left breast cancer (~2008) Hyperlipidemia IBS (irritable bowel syndrome) Measles 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, bilateral Personal history of other malignant neoplasm of skin (02/19/12) 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) Systolic congestive heart failure with reduced left ventricular function, NYHA class 2 (10/26/10) Surgical History (Last Reviewed 08/08/21 @ 04:05 by RADHA Self) Anesthesia Status post arthroscopy Status post biopsy (~2014) Status post breast lumpectomy (~2008) Status post cholecystectomy Status post coronary artery bypass graft Status post hysterectomy (~2009) Occupational Therapy Inpatient Evaluation/Re-Eval M1 PT/OT-IP Prior Functional Status Start: 08/10/21 09:25 Freq: NEEDED Status: Active Protocol: Document 08/10/21 09:25 [facility] (Rec: 08/10/21 09:43 [facility] [id number]) Medical Review Prior Functional Status Communication independent Mobility and Gait Pt states uses a cane, FWW , or sometimes no assisted device depending on how she feels. Her son always assist her with the 6 steps in other to get into the apartment. Activities of Daily Living and IADL's Pt states at times her son assist with dressing needs if she gets stuck, assists her for showering- sponging off, and with medications, finances and other IADL needs. Social History Household Members children Living Arrangements Mobile home Number of Floors (Floors) One Floor Number of Stairs To Enter/Railing? 6 steps with right rail to get into the apartment. Home Environment Standard Height Toilet,Walk in Shower Home Equipment Front Wheel Walker,Straight Cane,Manual Wheelchair,Bedside Commode,Grab Bars Near Toilet ,Grab Bars In Shower M2 OT-IP Current Condition Start: 08/10/21 09:25 Freq: Status: Active Protocol: Document 08/10/21 09:25 [facility] (Rec: 08/10/21 09:43 [facility] [id number]) Occupational Therapy Current Condition Current Condition Evaluation Date 08/10/21 Treatment Diagnosis Chest pain Diagnosis Onset Date 08/08/21 M3 OT- IP Subjective and Pain Start: 08/10/21 09:25 Freq: Status: Active Protocol: Document 08/10/21 09:25 [facility] (Rec: 08/10/21 09:43 [facility] [id number]) OT- Subjective Occupational Therapy Visit Type Type Initial Evaluation Visit Start Time 08:50 Visit Stop Time 09:24 Total Visit Minutes 34 Occupational Therapy Visit Comments Patient Comments Pt reluctant but agreed to do cognitive assessment. Patient/Caregiver Goals TO go home. OT Pain Assessment Pain When Pain Assessed At Rest Pain Present Pain Present Pain Reported Location Chest Intensity 4 Scale Used Numeric (0 - 10) M4 OT- IP ADL's Start: 08/10/21 09:25 Freq: Status: Active Protocol: Document 08/10/21 09:25 [facility] (Rec: 08/10/21 09:43 [facility] [id number]) OT [id number] Comments OT Self-Feeding Comments Not at meal time. OT ADL-Grooming General Evaluation Grooming Ability Standby Assistance Areas Needing Assistance Retrieving/Set-up of Grooming Items Comments OT Grooming Comments able to do while standing at the sink with FWW. OT ADL-Oral Care Comments Oral Care Comments Pt refused to do as states has no teeth. OT ADL-Dressing General Eval Lower Body Dressing Ability Standby Assistance Comments OT Dressing Comments SBA able to percy/doff socks and brief with increased time while seated. Pt states at times get stuck and needs to call her son to assist her. OT ADL-Toileting General Evaluation Toileting Ability Standby Assistance Comments OT Toileting Comments vc for completeness OT ADL-Bathing Comments OT Bathing Comments NOt performed M5 OT- IP IADL's Start: 08/10/21 09:25 Freq: Status: Active Protocol: Document 08/10/21 09:25 [facility] (Rec: 08/10/21 09:43 [facility] [id number]) OT-Instrumental Activities of Daily Living Home Safety Awareness Awareness of Need for Assistance at Home Good Awareness Ability to Problem Solve Emergency Able to Problem Solve Situations Home Safety Comments Pt states has a supportive son and that someone is always with her and that she is not home alone. However when asked, was anyone with her when her son left this past time. Pt states her son told her that he would be back within 30 minutes but did not come back and that no one was with her. Medication Management Medication Management Caregiver Administers Money Management Money Management Caregiver Provides Assistance Meal Preparation Meal Preparation Caregiver Provides Assist Equipment Operator/Laborer/Supervisor Equipment Operator/Laborer/Supervisor Caregiver Provides Assist Driving Driving Caregiver Provides Assist M6 OT- IP Functional Cognition Start: 08/10/21 09:25 Freq: Status: Active Protocol: Document 08/10/21 09:25 [facility] (Rec: 08/10/21 09:43 [facility] [id number]) Cognitive Factors Limiting Selfcare Function Cognitive Ability Level of Alertness Alert Patient Orientation Name,Year,Place,Situation Attention Span Ability Capable of Focused Attention, Capable of Sustained Attention Ability to Follow Commands Able to Follow One Step Commands Memory Description Short Term Impaired,Working Impaired Safety Awareness Underestimates Need for Assistance Problem Solving Ability Needs Assist to Identify Solutions Cognitive Tests SLUMS Pt scored 13/30 which her score implies dementia, in addition pt states just has an 8th grade education as had to drop out of school to care for her father's baby. Pt not sure of the day of the week, not able to do the math of 100-23, able to recall 11 animals in one minute, able to recall 4/5 animals after time passed, not able to states 3 or 4 digit numbers backwards, not able to writes the numbers in the clock in good proportions and not able to draw the hour hands correctly after time given, and pt able to answer 1/4 questions right after a paragraph read. Cognitive Comments Cognitive Assessment Comments Pt however able to answer all home safety questions with good accuracy. OT- Vision and Hearing OT- Vision Assessment Vision Assessment Comments Pt states she has blurred vision as not been able to do her drops which she has at home. Pt states wears reading glasses but states does not have any. M7 OT- IP Mobility and Balance Start: 08/10/21 09:25 Freq: Status: Active Protocol: Document 08/10/21 09:25 [facility] (Rec: 08/10/21 09:43 [facility] [id number]) OT-Transfer Assessment Sit to and From Stand Sit to and from Stand Standby Assistance Transfers Transfer Ability Standby Assistance,Contact Guard Assistance Technique Transfer Destination Chair,Toilet Transfer Technique Stand Step Pivot Devices Transfer Assistive Devices Gait Belt,Front Wheeled Walker Comments Mobility Comments Pt needing from close SBA to CGA and pt tends to keep the FWW too far in front of her and needing cues to stand upright. OT- Balance Assessment Sitting Balance and Reactions Static Sitting Balance Ability Good Dynamic Sitting Balance Ability Good Standing Balance and Reactions Static Standing Balance Ability Fair Dynamic Standing Balance Ability Poor M8 OT- IP Objective Assessments Start: 08/10/21 09:25 Freq: Status: Active Protocol: Document 08/10/21 09:25 [facility] (Rec: 08/10/21 09:43 [facility] [id number]) OT Gross Range of Motion Upper Extremity Range of Motion Assessment Within Functional Limits OT Strength Upper Extremity Strength Assessment Within Functional Limits OT- Coordination Assessment Upper Extremity Finger to Nose Test Within Functional Limits OT-Muscle Tone Assessment Muscle Tone WNL Yes M9 OT- IP Assessment and Plan Start: 08/10/21 09:25 Freq: Status: Active Protocol: Document 08/10/21 09:25 [facility] (Rec: 08/10/21 09:43 [facility] [id number]) OT Summary Assessment and Plan Potential Rehabilitation Potential Good Analytic Complexity at Evaluation Low Summary OT Impairments Balance,Functional Mobility, Dressing,Toileting,Bathing, Toilet Transfers,Activity Tolerance Progress Towards Goals Progressing Toward Goals Assessment Summary Pt low complexity and per pt states is at her baseline for needs. Pt states her son provides assist to her as needed or has someone stay with her. However pt admits this last time when her son left did not come back or have anyone with her. Pt however may not be a reliable historian as at times is tangential in her conversations but this may be her baseline. Pt will benefit to contnue to receive 24/7 assist and home health would also be beneficial for the pt as she is a high fall risk. In addition OT to request for PT orders. Goals Self-Feeding Goal Independent Grooming Goal Independent Dressing Goal Independent Toileting Goal Independent Bathing Goal Moderate Assistance Toilet Transfer Goal Independent Shower Transfer Goal Contact Guard Assistance Days to Meet Goals 5 Frequency of Treatment Frequency Of Treatment Once a Day Treatment Plan OT Treatment Plan ADL Training,Functional Mobility,Patient/Family Education,Discharge Planning Discharge Recommendations OT Discharge Recommendations Home with 24/ Assist Available,Home Health Transportation Needs at Discharge Private Vehicle
--- NOTE | 2021-08-10 10:25 | OT.IPNOTE ---
Able to let pt's nurse know that pt requesting something for her constipation.
--- NOTE | 2021-08-10 11:45 | PT.IIE ---
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) Asthma Breast cancer (~2001) CAD (coronary artery disease) Calcified nodule Cerebrovascular accident (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 right middle cerebral artery (04/27/17) Cervical cancer, FIGO stage I Cholelithiasis Chronic back pain Developmental disorder Diarrhea Essential hypertension (02/19/12) Failure to thrive in adult Fibrocystic breast disease GERD (gastroesophageal reflux disease) History of colon polyps (02/19/12) History of left breast cancer (~2008) Hyperlipidemia IBS (irritable bowel syndrome) Measles 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, bilateral Personal history of other malignant neoplasm of skin (02/19/12) 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) Systolic congestive heart failure with reduced left ventricular function, NYHA class 2 (10/26/10) Physical Therapy Inpatient Evaluation/Re-Eval M1 PT/OT-IP Prior Functional Status Start: 08/10/21 12:34 Freq: NEEDED Status: Active Protocol: Document 08/10/21 11:45 [facility] (Rec: 08/10/21 12:48 [facility] [id number]) Medical Review Prior Functional Status Communication able to make needs known but with slight confusion Mobility and Gait pt stated that she is modified independent with all mobilities and ambulation without AD but her son assists her if needed Activities of Daily Living and IADL's Pt states at times her son asisst with dressing needs if she gets stuck, for showering- sponging off, and with medicaitions, finances and other IADL needs. Social History Household Members children Living Arrangements Apartment/Condo Number of Floors (Floors) One Floor Number of Stairs To Enter/Railing? 6 steps with right rail to enter Home Environment Standard Height Toilet,Walk in Shower Home Equipment Front Wheel Walker,Straight Cane,Manual Wheelchair,Bedside Commode,Grab Bars Near Toilet ,Grab Bars In Shower Additional Social History Comment pt lives with her son pt stated that she does not take a shower and just do sponge bathing and son assist her pt uses a bedside commode for toilet needs M2 PT-IP Current Condition Start: 08/10/21 12:34 Freq: NEEDED Status: Active Protocol: Document 08/10/21 11:45 [facility] (Rec: 08/10/21 12:48 AB [id number]) Physical Therapy Current Condition Current Condition Evaluation Date 08/10/21 Treatment Diagnosis a-fib; difficulty in walking Onset Date 08/08/21 M3 PT-IP Subjective Start: 08/10/21 12:34 Freq: NEEDED Status: Active Protocol: Document 08/10/21 11:45 [facility] (Rec: 08/10/21 12:48 AB [id number]) Subjective Physical Therapy Visit Type Type Initial Evaluation Visit Start Time 11:45 Visit Stop Time 12:25 Total Visit Minutes 40 Number of FIELD MACHINIST Visits 0 Physical Therapy Visit Comments Patient Comments agreeable to do PT Therapy Pain Assessment Pain Present Pain Present Denied Pain M4 PT-IP Mobility and Gait Start: 08/10/21 12:34 Freq: NEEDED Status: Active Protocol: Document 08/10/21 11:45 [facility] (Rec: 08/10/21 12:48 AB [id number]) PT-Bed Mobility Assessment Supine to Sit Supine to Sit Independent Sit to Supine Sit to Supine Independent PT-Transfer Assessment Sit to and From Stand Sit to and from Stand Standby Assistance,Contact Guard Assistance,1 Person Assistance Equipment Transfer Assistive Device None,Gait Belt,Front Wheeled Walker Orthotic/Prosthetic Devices or Brace: No Transfers Transfer Destination Bed,Chair Transfer Technique Stand Step Pivot Transfer Ability Level of Assist Standby Assistance,Contact Guard Assistance,1 Person Assistance,Use of Upper Extremities Comments Mobility Comments pt sitting on chair. completed sit to stand CGA and ambulated in room without AD ~ 6 ft CGA and pt tends to reach and hold on to the wall/ table for support. instructed pt to sit on window bench and educated on safety. pt agreed to use FWW. completed sit to stand SBA and ambulated to the bed using FWW SBA to CGA. completed sit<>supine mod I. completed step transfer back to chair SBA using FWW. presents with increase thoracic kyphosis with stooped posture in standing. pt agreed to do stairs. stated that her son usually assists her with stair climbing. completed sit to stand from chair SBA and ambulated towards w/c ~ 20 ft using FWW SBA to CGA. assisted to the stairs. completed up/down steps using R rail ascending CGA. assisted pt back to her room. ambulated from w/c to chair using FWW SBA. positioned in chair and set up for lunch. call light and table placed within reach. Gait Assessment Gait Gait Assistance Required: Standby Assistance,Contact Guard Assist,1 Person Assist Distance (Feet) 30 Able to Maintain Weight Bearing Status No During Gait Assistive Devices Assistive Device None,Gait Belt,Front Wheeled Walker Orthotic/Prosthetic Devices or Brace: No Gait Deviations General Gait Pattern Antalgic,Decreased Stride Length,Decreased Feet Clearance,Flexed Trunk,Step-to Gait Factors Limiting Gait Function Factors Limiting Gait Function Decreased Activity Tolerance, Decreased Strength,Limited Range of Motion,Poor Balance, Poor Safety Awareness Stair Climbing Assessment Evaluation Level of Assist On Stairs Contact Guard Assistance Devices Stair Climbing Assistive Devices Right Railing Technique/Endurance Stair Climbing Direction Ascend and Descend Stair Climbing Technique Step to Step Number of Steps Climbed 3 Query Text: Stair Climbing Set # Repetitions (reps) 1 PT-Balance Assessment Sitting Balance and Reactions Static Sitting Balance Ability Normal Dynamic Sitting Balance Ability Good Standing Balance and Reactions Static Standing Balance Ability Fair Dynamic Standing Balance Ability Fair Device Used FWW M5 PT-IP Objective Assessments Start: 08/10/21 12:34 Freq: NEEDED Status: Active Protocol: Document 08/10/21 11:45 [facility] (Rec: 08/10/21 12:48 [facility] [id number]) Orientation Orientation/Cognition Level of Alertness Alert Orientation Name,Situation Language Function Ability Garbled Speech Safety Awareness Decreased Safety Awareness Memory Description Short Term Impaired Gross Range of Motion Lower Extremity ROM Assessment Within Functional Limits Strength Lower Extremity Strength Hip 4-/5 Knee 4/5 Coordination Assessment Gross Coordination Gross Coordination WNL Sensation Assessment Sensation Gross Sensation WNL Muscle Tone Muscle Tone WNL Yes M6 PT-IP Treatment Start: 08/10/21 12:34 Freq: NEEDED Status: Active Protocol: Document 08/10/21 11:45 [facility] (Rec: 08/10/21 12:48 AB [id number]) Physical Therapy Treatment Education Education Provided Safety M7 PT-IP Assessment and Plan Start: 08/10/21 12:34 Freq: NEEDED Status: Active Protocol: Document 08/10/21 11:45 [facility] (Rec: 08/10/21 12:48 AB [id number]) PT Summary Assessment and Plan Potential Rehabilitation Potential Good Status of Condition at Evaluation Stable Summary Impairments ROM,Strength,Balance,Cognition ,Transfers,Gait,Activity Tolerance Assessment Summary pt requiring SBA to CGA with mobility . pt stated that her son usually assists her at home but recently has not heard anything from her son. pt will need assistance at home and will benefit from services. will continue to assess progress. Goals Transfer Goal Independent,Front Wheeled Walker Gait Goal Independent,Front Wheel Walker Gait Distance 200 Other Goals improve ambulation without AD 50 ft SBA up/down 6 steps R rail ascending SBA Days to Meet Goals 10 Frequency of Treatment Frequency Of Treatment Once a Day Treatment Plan Physical Therapy Treatment Plan Transfer Training,Gait Training,Therapeutic Exercise, Balance Retraining,Discharge Planning,Hot or Cold Pack, Neuromuscular Re-ed, Coordination Retraining Precautions Other Precautions falls Recommendations To Nursing Amount of Assist Needed 1 Person Assist Discharge Recommendations PT Discharge Recommendations Home with Assistance,Home Health Transportation Needs at Discharge Private Vehicle
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
--- NOTE | 2021-08-10 15:30 | PM.PN.1 ---
Subjective Subjective Date Patient Seen: 08/10/21 Interval history: 86-year-old female with known coronary artery disease, permanent atrial fibrillation on apixaban, history of div hurt failure ( unknown if systolic or diastolic), hypertension, hyperlipidemia, and prior stroke who was admitted with chest pain.? Patient underwent stress testing and had a low risk scan.? She was approved for discharge on August 08, but staff could not get her son on the phone who is her POA.? She remained in the hospital pending his ability to take her home.? APS referral was made August 08 in light of ongoing caregiving concerns.? Care management notes they have been unable to get in touch with the son, who has this to her apartment and would be her ride home as well as her caregiver.? Patient reports she has not had any pain since approximately 10 or 11:00 a.m. last night. She is hopeful to be able to go home once her son is able to pick her up. Exam Vital Signs (past 8 hours): - 08/10/21 08:00 08/10/21 08:46 08/10/21 08:00 Temperature 96.2 F L Pulse Rate 110 H 110 H Respiratory Rate 16 Blood Pressure 138/71 138/71 Pulse Oximetry 98 Oxygen Delivery Method Room Air Oxygen Flow Rate 0 08/10/21 11:44 08/10/21 14:00 Temperature 96.7 F L Pulse Rate 65 Respiratory Rate 16 Blood Pressure 135/64 Pulse Oximetry 96 Oxygen Delivery Method Room Air Oxygen Flow Rate 0 Oxygen Delivery Method Room Air Oxygen Flow Rate 0 Narrative Exam Narrative: GEN:? frail-appearing elderly female,Alert and oriented x 3,?much more calm today HEENT:NC, Face symmetric CHEST: Respiratory excursions symmetric, CTAB CV: Irregularly irregular, no M/R/G, some point tenderness where the stethoscope was placed ABD: Soft,?nontender, nondistended,, BT present in all 4 quadrants, no organomegaly or masses appreciated EXTR: warm, well perfused, no C/C/E SKIN: warm and dry, no rash NEURO: Alert and oriented x 3, nonfocal Objective Labs Result Diagrams: 08/10/21 06:42 08/10/21 06:42 Labs: Laboratory Results - last 24 hr 08/10/21 08/10/21 06:42 06:42 WBC 6.7 RBC 3.82 L Hgb 11.4 L Hct 34.4 L MCV 90.0 MCH 29.8 MCHC 33.1 RDW 15.2 H Plt Count 242 Neut % (Auto) 54.7 Lymph % (Auto) 31.7 [place] % (Auto) 10.3 Eos % (Auto) 2.6 Baso % (Auto) 0.7 Neut # (Auto) 3700 Lymph # (Auto) 2100 [place] # (Auto) 700 Eos # (Auto) 200 Baso # (Auto) 0 Sodium 137 Potassium 4.8 Chloride 104 Carbon Dioxide 27 BUN 39 H Creatinine 0.95 Estimated GFR 59 L BUN/Creatinine Ratio 41.1 H Glucose 94 Calcium 8.8 Magnesium 2.1 PFSH Medical History Abdominal pain Acute pancreatitis Anticoagulated Anxiety 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) Asthma Breast cancer (~2001) CAD (coronary artery disease) Calcified nodule Cerebrovascular accident (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 right middle cerebral artery (04/27/17) Cervical cancer, FIGO stage I Cholelithiasis Chronic back pain Developmental disorder Diarrhea Essential hypertension (02/19/12) Failure to thrive in adult Fibrocystic breast disease GERD (gastroesophageal reflux disease) History of colon polyps (02/19/12) History of left breast cancer (~2008) Hyperlipidemia IBS (irritable bowel syndrome) Measles 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, bilateral Personal history of other malignant neoplasm of skin (02/19/12) 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 Chest pain ?patient presented with complaints of chest pain.? Negative workup for CT. Low risk cardiac stress test.? Likely musculoskeletal in nature. Yesterday she had symptoms that were very consistent with musculoskeletal etiology. No symptoms today. 2. Atrial fibrillation, felt to be permanent ? Remains rate controlled.? Is on chronic apixaban. 3.? Coronary artery disease ? Uncertain as to her previous cardiac interventions.? She does have a scar noted over her left chest which she states was related to cancer surgery.? She also has of substernal scar which she states was related to her heart disease.? As noted low risk nuclear stress test done here. 4.? Chronic GERD ? Suspect this could be contributing to her chest pain.? It may be she has esophageal spasm that is responsive to nitroglycerin. Well controlled today. 5. CHF ? Appears euvolemic presently. ?6. Psychosocial issues / caregiving issues ? APS referral was sent 2 days ago. Continue to await for contact from patient's son who is her caregiver. ?7. Cognitive impairment/dementia ?A slums assessment was performed by Occupational therapy with a score of 13/30, consistent with dementia. She will need 24/7 supervision. ? 8. Acute severe protein calorie malnutrition Patient has had a 7 and 0.5% weight loss over the last 3 months.? Oral nutritional supplementation as tolerated. ?code status Full ?prophylaxis On apixaban ?disposition Patient is medically ready for discharge, but we were unable to verify caregiving and safety at home. Time Spent With Patient Critical Care time: I spent a total of [] minutes of critical care time on this patient's care today; this time is exclusive of procedural time. Quality VTE Deep Vein Thrombosis/Pulmonary Embolism Present on Admission: No
[2021-08-10] MEDS: TRAMADOL 50 MG TABLET PO (18:01)
[2021-08-10] MEDS: ONDANSETRON 4 MG/2 ML INJ IV (18:54)
--- NOTE | 2021-08-10 19:00 | PC.NURSE ---
Pt is AxOx2-3, anxious at times and cooperative. VSS except BP is slightly high 166/86 around 1700. Pt c/o chest pain right after dinner and pt was given PO Tramadol 50mg given with good effect. Pt also c/o nausea around 1850 so PRN IV Zofran given. Otherwise, pt is stable and eating pretty well all day. Continue monitor.
[2021-08-10] MEDS: ATORVASTATIN 20 MG TABLET 40 MG PO (21:03)
[2021-08-11] VITALS (7 sets, daily range): BP systolic 114–127; BP diastolic 47–63; PULSE 60–84; RESP 14–18; TEMP 35.9–36.4; O2SAT 94–97
[2021-08-11] MEDS: LOSARTAN 50 MG TABLET PO (08:32)
[2021-08-11] MEDS: APIXABAN 5 MG TABLET PO ×2 (08:32→20:04)
[2021-08-11] MEDS: METOPROLOL IR 25 MG TABLET 12.5 MG PO (08:32)
[2021-08-11] MEDS: GABAPENTIN 300 MG CAPSULE PO ×2 (08:33→20:04)
[2021-08-11] MEDS: PANTOPRAZOLE DR 40 MG TABLET PO (08:33)
--- NOTE | 2021-08-11 13:45 | P.PN_ITS ---
Subjective Subjective Date Patient Seen: 08/11/21 Interval history: 86-year-old female with known coronary artery disease, permanent atrial fibrillation on apixaban, history of div hurt failure ( unknown if systolic or diastolic), hypertension, hyperlipidemia, and prior stroke who was admitted with chest pain.? Patient underwent stress testing and had a low risk scan.? She was approved for discharge on August 08, but staff could not get her son on the phone who is her POA.? She remained in the hospital pending his ability to take her home.? APS referral was made August 08 in light of ongoing caregiving concerns.? Care management notes they have been unable to get in touch with the son, who has this to her apartment and would be her ride home as well as her caregiver.?Son has not been in contact w/hospital staff or the patient. Pt had an episode of chest/abdominal pain last evening which responded to treatment w/tramadol and zofran. Exam Vital Signs (past 8 hours): - 08/11/21 08:32 08/11/21 08:41 08/11/21 07:00 Temperature 96.6 F L Pulse Rate 60 73 Respiratory Rate 16 Blood Pressure 114/47 L 127/57 L Pulse Oximetry 96 Oxygen Delivery Method Room Air Oxygen Flow Rate 0 08/11/21 08:00 Temperature Pulse Rate Respiratory Rate Blood Pressure Pulse Oximetry Oxygen Delivery Method Room Air Oxygen Flow Rate Oxygen Delivery Method Room Air Oxygen Flow Rate 0 Narrative Exam Narrative: GEN:? frail-appearing elderly female,Alert and oriented x 2, NAD HEENT:NC, Face symmetric CHEST: Respiratory excursions symmetric, CTAB CV:? 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) Asthma Breast cancer (~2001) CAD (coronary artery disease) Calcified nodule Cerebrovascular accident (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 right middle cerebral artery (04/27/17) Cervical cancer, FIGO stage I Cholelithiasis Chronic back pain Developmental disorder Diarrhea Essential hypertension (02/19/12) Failure to thrive in adult Fibrocystic breast disease GERD (gastroesophageal reflux disease) History of colon polyps (02/19/12) History of left breast cancer (~2008) Hyperlipidemia IBS (irritable bowel syndrome) Measles 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, bilateral Personal history of other malignant neoplasm of skin (02/19/12) 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 Chest pain ?Patient presented with complaints of chest pain.? Negative workup for SD. Low risk cardiac stress test.? Likely musculoskeletal in nature.? No symptoms today 2. Atrial fibrillation, felt to be permanent ? Remains rate controlled.? Is on chronic apixaban. 3.? Coronary artery disease ? Uncertain as to her previous cardiac interventions.? Has a sternal scar from prior intervention (pt does not recall what was done). Low risk nuc this a dmission. 4.? Chronic GERD ? Suspect this could be contributing to her chest pain.? It may be she has esophageal spasm that is responsive to nitroglycerin.? Well controlled today. 5. CHF ? Appears euvolemic presently. ?6. Psychosocial issues / caregiving issues ? APS referral was sent 3 days ago.? Continue to await for contact from patient's son who is her caregiver. Care mgmt to contact the police dept for a welfare check. ?7. Cognitive impairment/dementia ?A slums assessment was performed by Occupational therapy with a score of 13/30, consistent with dementia.? She will need 08/09 supervision. She likely does not have capacity to make her own healthcare decisions. ? 8. Acute severe protein calorie malnutrition Patient has had a 7 and 0.5% weight loss over the last 3 months.? Oral n utritional supplementation as tolerated. ?code status Full ?prophylaxis On apixaban ?disposition Patient is medically ready for discharge, but we were unable to verify caregiving and safety at home. Time Spent With Patient Critical Care time: I spent a total of [] minutes of critical care time on this patient's care today; this time is exclusive of procedural time. Quality VTE Deep Vein Thrombosis/Pulmonary Embolism Present on Admission: No
--- NOTE | 2021-08-11 14:07 | PC.NURSE ---
This director industrial nursing has contacted [facility] via non urgent 911 this morning, to request a wellness check on Heath Garrido, who is the patient's son and POA. Per staff report, staff have been attempting to contact this family member since August 08 without success. The [facility]'s department has made contact with Heaht Garrido and notified this director industrial nursing. Heath Garrido told contacting authorities that he had lost his cell phone and could not be reached. He has been updated with the planned discharge order for his mother. Mr. Garrido told authorities that he would call the hospital to make arrangement for his mother's discharge.
--- NOTE | 2021-08-11 15:36 | PT-IP ANOTE ---
Attempted to see pt for PT treatment but she was sleeping soundly and did not rouse to verbal stimulation. Will follow up as able.
--- NOTE | 2021-08-11 15:50 | CM.DPC ---
DCP/continued: Reviewed call CM team notes. Patient remains medically stable in hospital under Observation status due to son/Heath unable to reach and patient unsure if she can get into her residence? A.P.S. involved contact is Anya [place] # [phone]. Left vm on 08-11 requesting return phone call on next . In the meantime, RN/Charge Anya called 's Department to request welfare check on son to see if he is available at the residence because he is not returning any phone calls? Per Anya, did speak with son and he is supposed to be calling the hospital re: his Mother. Patient continues to be medically stable for discharge and refuses to go anywhere but home. P: Pending. HAWK
--- NOTE | 2021-08-11 17:25 | PC.NURSE ---
Pt is AxOx2-3 but forgetful and pleasant. VSS, pt denies pain. Pt has been sleeping since we gave her shower. Pt has good appetite as usual. No other changes. Continue monitor.
[2021-08-11] MEDS: ATORVASTATIN 20 MG TABLET 40 MG PO (20:04)
[2021-08-11] MEDS: ACETAMINOPHEN 325 MG TABLET 650 MG PO (20:04)
[2021-08-12] VITALS (7 sets, daily range): BP systolic 101–158; BP diastolic 44–68; PULSE 62–77; RESP 14–21; TEMP 36.1–36.4; O2SAT 93–100
[2021-08-12 06:10] LABS: Add Manual Diff / Slide Review NO; Basophils Absolute Auto 0 /uL (0-100); Basophils Percent Auto 0.6 % (0-2); Eosinophils Absolute Auto 200 /uL (0-450); Eosinophils Percent Auto 3.2 % (2-4); Hematocrit 35.3 % (36-46); Hemoglobin 11.4 g/dL (12.0-16.0); Lymphocytes Absolute Auto 2100 /uL (1100-4500); Lymphocytes Percent Auto 34.4 % (25-40); Mean Corpuscular HGB Conc 32.4 % (30-36); Mean Corpuscular Hemoglobin 29.7 PG (26-34); Mean Corpuscular Volume 91.5 fL (80-100); Monocytes Absolute Auto 600 /uL (0-900); Monocytes Percent Auto 10.3 % (3-14); Neutrophils Absolute Auto 3100 /uL (1500-7000); Neutrophils Percent Auto 51.5 % (50-75); Platelet Count 237 X10^3/uL (150-400); Red Blood Cell Count 3.85 X10^6/uL (4.0-5.2); Red Cell Distribution Width 14.9 % (11.6-14.8)
[2021-08-12 06:20] LABS: BUN Creatinine Ratio 43.4 (6-22); Blood Urea Nitrogen 43 mg/dL (7-17); Calcium 8.7 mg/dL (8.4-10.2); Carbon Dioxide 31 mmol/L (22-32); Chloride 102 mmol/L (98-107); Estimated Glomerular Filt Rate 56 mL/min (>60); Glucose 113 mg/dL (80-110); HEMOLYSIS < 15 (0-50); Potassium 4.8 mmol/L (3.4-5.1); Sodium 138 mmol/L (137-145)
--- NOTE | 2021-08-12 09:33 | CM.DPC ---
Addendum entered by JOSHUA Bowie 08/12/21 15:13: ADD: BREA called [facility] liaison [facility] and provided new referral for [facility] and discussed pt's situation and she is willing to review with her team to determine if they can accept pt as her current living situation a barrier but they will review. BREA faxed clinicals to [facility] to review. SW completed F2F but still needs hospitalist signature as Hospitalist was in another pt room. 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 [facility] states they are not willing to do another Well Check on Heath again today as no concerns from seeing him yesterday and no known additional information that would make it safety concerns an issue. They confirm Heath can be difficult to work with. Per ABRADING MACHINE TENDER, pt still declining to go to SNF and will work with her again today with stairs and pt ambulating short distances in the room. BREA called [facility] again and updated on pt continuing to decline SNF and tearful wanting to see or talk to her son and pt's refusal to complete Medicaid LTC nestor with SW without talking to her son. [facility] confirms they do not have staff to go to pt's dwelling today but she will go by to see Heath tomorrow morning 08/13/21 and should be there by 0930 and will then call SW while there. BLS form completed in anticipation that stretcher transport may be needed for the stairs unless Heath confirms he will be there and pt currently 1PA and completing more stair training today with ABRADING MACHINE TENDER. BF Addendum entered by JOSHUA Bowie 08/12/21 11:11: ADD: BREA called [facility] Office with non-emergent request for Well Check on pt's son Heath as still no call from him and he has not showed up at the hospital and he is pt's primary CG and pt relies heavily on his assist and decision making. Once confirmed that pt's son is present at the house then BLS transport can be scheduled for pt to return home today with APS to follow and SW will send a copy of Medicaid LTC application with pt to be reviewed by son. BF Original Note: DCP Cont: Per integration developer, no calls to the [facility] staff yesterday from son/DPOA Heath after 's Dept completed Well Check on son Heath as staff has not heard from him since pt's admission on 08/07/21 and Wafer Mounter confirmed son Heath was there. BREA attempted to call Heath again and left msg. SW met bedside with pt and explained role and she confirms she is feeling tearful having not spoken or seen her son Heath since her admission. Pt could not identify any other family or friend that could go by their dwelling to see if its unlocked and/or if Heath is present towards getting discharge planning discussion with son Heath as pt medically stable. Pt confirms she still wants to d/c home. SW received a call from [facility] stating they received pt's [facility] expedited referral but since pt is not currently active on Medicaid then Medicaid LTC application needs to be completed and submitted first and then [facility] Expedited referral needs to be re-submitted. BREA called APS Anya Jacksonblin [phone] who is also surprised that son has not contacted the hospital since pt's admission and when Anya went by the house on Fri a couple days ago son Heath was not there. BREA requested APS go by the moab again today and get Heath on the phone to determine d/c plan and potentially complete Medicaid application for pt with him. Anya states she cannot go by the house today due to her schedule but is requesting her coworker to go by today. Anya states worst case scenario, she has availability to go by the house early tomorrow 08/13/21 morning. Per Anya, pt had submitted a Medicaid application back in 2018 that showed almost $1400 from social security as her income but then declined Medicaid at that time. BREA presented Medicaid LTC application to pt and requested SW and pt complete it together towards increasing her possible residential care supports for future or current needs and pt states she wants to check in with her son Heath first before completing and states I just don't know anything anymore. BREA encouraged her to at least begin the application with SW support and could then send home with her to show Heath if needed and pt continues to decline completing it yet at this time and more focused on hearing from Heath or seeing him as she is feeling tearful. Plan: SW to follow closely for update from APS if they are able to go by the dwelling today vs the AM and further encouraging with pt towards completing the Medicaid LTC application. JOSHUA Bowie
[2021-08-12] MEDS: GABAPENTIN 300 MG CAPSULE PO ×2 (10:25→21:11)
[2021-08-12] MEDS: PANTOPRAZOLE DR 40 MG TABLET PO (10:25)
[2021-08-12] MEDS: APIXABAN 5 MG TABLET PO ×2 (10:25→21:11)
[2021-08-12] MEDS: METOPROLOL IR 25 MG TABLET 12.5 MG PO (10:25)
--- NOTE | 2021-08-12 11:44 | PC.NURSE ---
Addendum entered by Ally Lilly R.N. 08/12/21 13:07: Patient back to bed and comfortable. She sat up in the chair for a couple of hours and tolerated well. Original Note: Assess- Patient is alert and oriented x3. She is tearful and does not understand why her son will not answer his phone and come and visit her. Patient is a one person assist to get up with walker. She is working with therapy and denies discomfort.
--- NOTE | 2021-08-12 12:04 | PT.IPTN ---
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 (08/08/21) Physical Therapy Treatment Note M2 PT-IP Current Condition Start: 08/10/21 12:34 Freq: NEEDED Status: Active Protocol: Document 08/12/21 11:41 SP (Rec: 08/12/21 12:33 SP [id number]) Physical Therapy Current Condition Current Condition Evaluation Date 08/10/21 Treatment Diagnosis a-fib; difficulty in walking Onset Date 08/08/21 M3 PT-IP Subjective Start: 08/10/21 12:34 Freq: NEEDED Status: Active Protocol: Document 08/12/21 11:41 SP (Rec: 08/12/21 12:33 SP [id number]) Subjective Physical Therapy Visit Type Type Progress Note Visit Start Time 11:41 Visit Stop Time 12:04 Total Visit Minutes 23 Notes Vitals taken during tx: seated in chair post all mobility due to reports little dizzy: BP 138/76, HR 72 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 1 Physical Therapy Visit Comments Patient Comments agreeable to do PT Patient Goals REturn home with son to assist her Therapy Pain Assessment Pain When Pain Assessed During Mobility Pain Present Pain Present Denied Pain M4 PT-IP Mobility and Gait Start: 08/10/21 12:34 Freq: NEEDED Status: Active Protocol: Document 08/12/21 11:41 SP (Rec: 08/12/21 12:33 SP [id number]) PT-Transfer Assessment Sit to and From Stand Sit to and from Stand Standby Assistance,Contact Guard Assistance,1 Person Assistance,Use of Upper Extremities Equipment Transfer Assistive Device Gait Belt,Front Wheeled Walker Orthotic/Prosthetic Devices or Brace: No Transfers Transfer Destination Chair,Toilet,Wheelchair Transfer Technique pt ambulated using FWW Transfer Ability Level of Assist Standby Assistance,Contact Guard Assistance,1 Person Assistance,Use of Upper Extremities Comments Mobility Comments Pt up in chair when arrived, reports sad hasn't heard from son, hoping is doing ok, wants him to come get her and continue to help her, declines SNF for further strengthening . Sit>stand SBA cues for use of FWW, gait to bathroom, cues for FWW posiitoning fully backing up and use grab bar descent sBA. Pt able to void and self pericare in sitting. Gait to sink 10 ft w/ FWW. Gait to wc w/FWW SBA in [facility] is tiring to walk 15 ft. Pt brought down to stairs: completed 15 stairs R HR CG> Min A with increased flexed posture/B knee flexion last set due to decreased strength and endurance with max cues for posturing RHR only assimulate home set up. Pt brought back to room, gait to chair w/ FWW and safety positioning of FWW fully back with her not left off to side close SBA. Pt had call light and all needs in reach [facility] chair alarm donned before left . Gait Assessment Gait Gait Assistance Required: Standby Assistance,Contact Guard Assist,1 Person Assist Distance (Feet) 30 Able to Maintain Weight Bearing Status No During Gait Assistive Devices Assistive Device Gait Belt,Front Wheeled Walker Orthotic/Prosthetic Devices or Brace: No Gait Deviations General Gait Pattern Antalgic,Decreased Stride Length,Decreased Feet Clearance,Flexed Trunk Factors Limiting Gait Function Factors Limiting Gait Function Decreased Activity Tolerance, Decreased Strength,Difficulty Following Directions,Limited Range of Motion,Poor Balance, Poor Safety Awareness Comments Gait Comments Cues for upright posture, closer to and proper use FWW fully during pivot transfers positioning for safety support . Stair Climbing Assessment Evaluation Level of Assist On Stairs Contact Guard Assistance, Minimal Assistance,1 Person Assistance Devices Stair Climbing Assistive Devices Right Railing Technique/Endurance Stair Climbing Direction Ascend and Descend Stair Climbing Technique Step to Step Number of Steps Climbed 3 Stair Climbing Set # Repetitions (reps) 5 Comments Stair Climbing Comments step to patterning BUE on RHR, states son comments in past has 14 stairs but she remembers only 6. Required increase trunk support Min A last set due to tiring and decreased endurance. PT-Balance Assessment Sitting Balance and Reactions Static Sitting Balance Ability Normal Dynamic Sitting Balance Ability Good Standing Balance and Reactions Static Standing Balance Ability Fair Dynamic Standing Balance Ability Fair Device Used FWW M5 PT-IP Objective Assessments Start: 08/10/21 12:34 Freq: NEEDED Status: Active Protocol: Document 08/10/21 11:45 AB (Rec: 08/10/21 12:48 AB [id number]) Orientation Orientation/Cognition Level of Alertness Alert Orientation Name,Situation Language Function Ability Garbled Speech Safety Awareness Decreased Safety Awareness Memory Description Short Term Impaired Gross Range of Motion Lower Extremity ROM Assessment Within Functional Limits Strength Lower Extremity Strength Hip 4-/5 Knee 4/5 Coordination Assessment Gross Coordination Gross Coordination WNL Sensation Assessment Sensation Gross Sensation WNL Muscle Tone Muscle Tone WNL Yes M6 PT-IP Treatment Start: 08/10/21 12:34 Freq: NEEDED Status: Active Protocol: Document 08/12/21 11:41 SP (Rec: 08/12/21 12:33 SP [id number]) Physical Therapy Treatment Education Education Provided Safety M7 PT-IP Assessment and Plan Start: 08/10/21 12:34 Freq: NEEDED Status: Active Protocol: Document 08/12/21 11:41 SP (Rec: 08/12/21 12:33 SP [id number]) PT Summary Assessment and Plan Potential Rehabilitation Potential Good Status of Condition at Evaluation Stable Summary Impairments ROM,Strength,Balance,Cognition ,Transfers,Gait,Activity Tolerance Progress Towards Goals Progressing Toward Goals,Slow Progress due to Activity Tolerance Assessment Summary Pt requires CG- close SBA during mobility using FWW with safety cues FWW and body and proper positioning. Pt completed 15 stairs R HR but required increase Min A for trunk support last set due to decreased strength/endurance, cues for posture. Pt is ok to return home with son to provide assist available vs SNF (pt refusing), recommending HHPT to improve strength and functional mobility independence continue safety techniques proper use of FWW for mobility vs furniture reaching. She is unstable without AD, Min A. Goals Transfer Goal Independent,Front Wheeled Walker Gait Goal Independent,Front Wheel Walker Gait Distance 200 Other Goals improve ambulation without AD 50 ft SBA up/down 6 steps R rail ascending SBA Days to Meet Goals 10 Frequency of Treatment Frequency Of Treatment Once a Day Treatment Plan Physical Therapy Treatment Plan Transfer Training,Gait Training,Therapeutic Exercise, Balance Retraining,Discharge Planning,Hot or Cold Pack, Neuromuscular Re-ed, Coordination Retraining Other Recommendations and Next Treatment safety transfers, gait w/ FWW Focus vs LRAD. Precautions Other Precautions falls Recommendations To Nursing Amount of Assist Needed Standby Assistance,1 Person Assist Discharge Recommendations PT Discharge Recommendations Home with Assistance,Home Health Transportation Needs at Discharge Private Vehicle
[2021-08-12 12:27] LABS: Appearance Urine UA SL CLOUDY; Bilirubin Urine UA NEGATIVE (NEGATIVE); Color Urine UA YELLOW; Glucose Urine UA NEGATIVE (Negative); Ketones Urine UA NEGATIVE (NEGATIVE); Leukocyte Esterase Urine UA 1+ (NEGATIVE); Nitrite Urine UA NEGATIVE (Negative); Occult Blood Urine UA TRACE-INTACT (Negative); Protein Urine UA NEGATIVE (Negative); Specific Gravity Urine UA <=1.005 (1.000-1.035); Urobilinogen Urine UA 0.2 E.U./dL (0.2)
--- NOTE | 2021-08-12 12:28 | OT.IPNOTE ---
Attempted to see pt for OT services. Pt declined all activity at this time. Pt states that she just finished with P.T. and she is very concerned about her son and doesn't know if he is ok.
[2021-08-12 12:33] LABS: Bacteria Urine None Seen; Culture Indicated Urine Specimen Cultured; RBC Urine None Seen (0-5/HPF); Squamous Epithelial Cell Urine 0-1 /HPF (0-5/HPF); WBC Urine 5-10/HPF (0-5/HPF)
--- NOTE | 2021-08-12 14:19 | CM.DPNOTE ---
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 Spoke to Marla who scheduled this transport. Liz Tomlin CM Assist.
--- NOTE | 2021-08-12 15:52 | PM.PN.1 ---
Subjective Subjective Interval history: Hospital follow-up visit. Patient has no new concerns. Nursing has no new concerns. Exam Vital Signs (past 8 hours): - 08/12/21 07:56 08/12/21 11:21 08/12/21 11:33 Temperature 97.0 F L Pulse Rate 77 Respiratory Rate 16 16 Blood Pressure 146/53 H Pulse Oximetry 93 97 Oxygen Delivery Method Room Air Room Air Oxygen Flow Rate 0 Oxygen Delivery Method Room Air Oxygen Flow Rate 0 Narrative Exam Narrative: Patient appears in no acute distress. Resting comfortably in bed. Alert and oriented to place and person HEENT: Pupils equal react to light extraocular movements normal. Neck nodes are nonpalpable and nontender. Cardiovascular: Heart sounds normal. No pedal edema Respiratory: Good air entry. No wheezes or crackles Gastrointestinal: Bowel sounds normal. Nontender. Musculoskeletal: Able to move all extremities volitionally. No localized strength deficits. Neuro: Normal sensation of all extremities Objective Labs Result Diagrams: 08/12/21 05:47 08/12/21 05:47 Labs: Laboratory Results - last 24 hr 08/12/21 08/12/21 08/12/21 05:47 05:47 10:00 WBC 6.0 RBC 3.85 L Hgb 11.4 L Hct 35.3 L MCV 91.5 MCH 29.7 MCHC 32.4 RDW 14.9 H Plt Count 237 Neut % (Auto) 51.5 Lymph % (Auto) 34.4 [place] % (Auto) 10.3 Eos % (Auto) 3.2 Baso % (Auto) 0.6 Neut # (Auto) 3100 Lymph # (Auto) 2100 [place] # (Auto) 600 Eos # (Auto) 200 Baso # (Auto) 0 Sodium 138 Potassium 4.8 Chloride 102 Carbon Dioxide 31 BUN 43 H Creatinine 0.99 Estimated GFR 56 L BUN/Creatinine Ratio 43.4 H Glucose 113 H Calcium 8.7 Urine Color Yellow Urine Appearance Sl cloudy Urine pH 7.0 Ur Specific [place] <=1.005 Urine Protein Negative Urine Glucose (UA) Negative Urine Ketones Negative Urine Occult Blood Trace-intact Urine Nitrate Negative Urine Bilirubin Negative Urine Urobilinogen 0.2 Ur Leukocyte Esterase 1+ H Urine RBC None seen Urine WBC 5-10/hpf H Ur Squamous Epith Cells 0-1 /hpf Urine Bacteria None seen Ur Culture Indicated? 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) Asthma Breast cancer (~2001) CAD (coronary artery disease) Calcified nodule Cerebrovascular accident (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 right middle cerebral artery (04/27/17) Cervical cancer, FIGO stage I Cholelithiasis Chronic back pain Developmental disorder Diarrhea Essential hypertension (02/19/12) Failure to thrive in adult Fibrocystic breast disease GERD (gastroesophageal reflux disease) History of colon polyps (02/19/12) History of left breast cancer (~2008) Hyperlipidemia IBS (irritable bowel syndrome) Measles 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, bilateral Personal history of other malignant neoplasm of skin (02/19/12) 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) Systolic congestive heart failure with reduced left ventricular function, NYHA class 2 (10/26/10) Surgical History Anesthesia Status post arthroscopy Status post biopsy (~2014) Status post breast lumpectomy (~2008) Status post cholecystectomy Status post coronary artery bypass graft Status post hysterectomy (~2009) Family History Father Myocardial infarct Mother Maternal complication related to childbirth Sister Traumatic amputation Social History household members: children Smoking Status: Never smoker alcohol intake: never Assessment & Plan Assessment & Plan narrative: Patient is actually ready for discharge. However it is unclear whether she can be discharged to a safe environment at home with the son taking care of her or if she needs to go to a retirement facility. Patient currently is not wanting to go to retirement facility since she prefers to be at home with her son whom she thinks takes well care of her. She also has to confirmation from her son that her dogs are well taken care of if she were to go to a retirement facility. Time Spent With Patient Critical Care time: I spent a total of [] minutes of critical care time on this patient's care today; this time is exclusive of procedural time. Quality VTE Deep Vein Thrombosis/Pulmonary Embolism Present on Admission: No
[2021-08-12] MEDS: ATORVASTATIN 20 MG TABLET 40 MG PO (21:10)
[2021-08-13] VITALS (9 sets, daily range): BP systolic 98–152; BP diastolic 55–75; PULSE 63–89; RESP 14–17; TEMP 35.9–36.6; O2SAT 95–98
[2021-08-13] MEDS: TRAMADOL 50 MG TABLET PO ×2 (08:12→15:47)
[2021-08-13] MEDS: PANTOPRAZOLE DR 40 MG TABLET PO (08:12)
[2021-08-13] MEDS: LOSARTAN 50 MG TABLET PO (08:13)
[2021-08-13] MEDS: METOPROLOL IR 25 MG TABLET 12.5 MG PO (08:13)
[2021-08-13] MEDS: GABAPENTIN 300 MG CAPSULE PO ×3 (08:13→21:16)
[2021-08-13] MEDS: APIXABAN 5 MG TABLET PO ×2 (08:13→21:16)
--- NOTE | 2021-08-13 08:22 | PC.NURSE ---
Addendum entered by Ally Lilly R.N. 08/13/21 18:22: Patient was given tramadol around 1600 with her gabapentin, and she has resting comfortably. Addendum entered by Ally Lilly R.N. 08/13/21 10:43: Patient is tearful, she is resting and denies pain after tramadol given. Original Note: Patient complained of discomfort to her head and neck. Tramadol given, she is eating breakfast now and is pleasant and cooperative with care. She wishes to hear from her son as she is discharged from hospital, patient does tear up when she talks about him.
--- NOTE | 2021-08-13 10:50 | P.PN_ITS ---
Subjective Subjective Interval history: Hospitalist follow-up visit. Patient quite distraught and the fact that her son is unable to take care of her anymore. Hospital has been notified by Adult Protective based on their visit to this son's premises. Patient would really like her son to visit and explained the situation. She feels abandoned. Unfortunately this brings back memories of when her father had to ?give her and her siblings away to her grandmother to raise ?. Except now she has no siblings with her. Exam Vital Signs (past 8 hours): - 08/13/21 05:00 08/13/21 06:00 08/13/21 07:57 Temperature 97.9 F 96.8 F L Pulse Rate 67 89 Respiratory Rate 14 16 Blood Pressure 136/60 152/69 H Pulse Oximetry 98 98 96 Oxygen Delivery Method Room Air Oxygen Flow Rate 0 0 08/13/21 08:12 Temperature Pulse Rate Respiratory Rate 16 Blood Pressure Pulse Oximetry 96 Oxygen Delivery Method Room Air Oxygen Flow Rate Oxygen Delivery Method Room Air Oxygen Flow Rate 0 Narrative Exam Narrative: Patient alert oriented to person and place. Patient appears in no acute distress. HEENT: Pupils equal reactive to light. Extraocular movements normal. Neck is supple. No neck nodes. Cardiovascular: Heart sounds S1 and S2. No extra sounds or murmurs. No pedal edema. Respiratory: Adequate air entry throughout the lung chen. No wheezes or crackles. Gastrointestinal: Abdomen is soft. Nontender. Bowel sounds normal. Musculoskeletal: Able to move all extremities loosely. No specific localized strength deficits. Skin: No rashes or lesions. Neuro: Normal sensation of all extremities. Normal mood. A little teary however due to news that she cannot go home. Objective Labs Result Diagrams: 08/12/21 05:47 08/12/21 05:47 Labs: Laboratory Results - last 24 hr 08/12/21 10:00 Urine Color Yellow Urine Appearance Sl cloudy Urine pH 7.0 Ur Specific [place] <=1.005 Urine Protein Negative Urine Glucose (UA) Negative Urine Ketones Negative Urine Occult Blood Trace-intact Urine Nitrate Negative Urine Bilirubin Negative Urine Urobilinogen 0.2 Ur Leukocyte Esterase 1+ H Urine RBC None seen Urine WBC 5-10/hpf H Ur Squamous Epith Cells 0-1 /hpf Urine Bacteria None seen Ur Culture Indicated? 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) Cervical cancer, FIGO stage I Cholelithiasis Chronic back pain Developmental disorder Diarrhea Essential hypertension (02/19/12) Failure to thrive in adult Fibrocystic breast disease GERD (gastroesophageal reflux disease) History of colon polyps (02/19/12) History of left breast cancer (~2008) Hyperlipidemia IBS (irritable bowel syndrome) Measles 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, bilateral Personal history of other malignant neoplasm of skin (02/19/12) 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) Systolic congestive heart failure with reduced left ventricular function, NYHA class 2 (10/26/10) Surgical History Anesthesia Status post arthroscopy Status post biopsy (~2014) Status post breast lumpectomy (~2008) Status post cholecystectomy Status post coronary artery bypass graft Status post hysterectomy (~2009) Family History Father Myocardial infarct Mother Maternal complication related to childbirth Sister Traumatic amputation Social History household members: children Smoking Status: Never smoker alcohol intake: never Assessment & Plan Assessment & Plan narrative: Current status of diagnosis are as follows: 1. Chest pain ?Patient presented with complaints of chest pain.? Negative workup for TN. Low risk cardiac stress test.? Likely musculoskeletal in nature.? No symptoms today 2. Atrial fibrillation, felt to be permanent ? Remains rate controlled.? Is on chronic apixaban. 3.? Coronary artery disease ? Uncertain as to her previous cardiac interventions.? Has a sternal scar from prior intervention (pt does not recall what was done).? 4.? Chronic GERD ? Suspect this could be contributing to her chest pain.? It may be she has esophageal spasm that is responsive to nitroglycerin.? Well controlled today. 5. CHF ? Appears euvolemic presently. ?6. Psychosocial issues / caregiving issues Son able to take care of patient. New place for residence needs to be found for the patient. ?7. Cognitive impairment/dementia ? She will need / supervision.? She likely does not have capacity to make her own healthcare decisions. ? 8. Acute severe protein calorie malnutrition Weight loss over the last 3 months.? Oral nutritional supplementation as tolerated. Patient eating well in the hospital. ?code status Full ?prophylaxis On apixaban ?disposition Patient is medically ready for discharge, however it has been verified that this endocrine no longer take care of the patient. Placement needs to be found for the patient. Time Spent With Patient Critical Care time: I spent a total of [] minutes of critical care time on this patient's care today; this time is exclusive of procedural time. Quality VTE Deep Vein Thrombosis/Pulmonary Embolism Present on Admission: No
--- NOTE | 2021-08-13 11:24 | CM.DPNOTE ---
Faxed referral to [facility], & [facility] Delaney [facility]ark[facility]. Liz Tomlin, CM Assist.
--- NOTE | 2021-08-13 13:42 | OT.IPNOTE ---
Attempted to see pt for OT treatment and pt states just wanting to talk to her son and refused to get up at this time. Pt states already used the toilet and content to stay in the recliner. Pt insistent that she does not want to go to skilled rehab. No charge
--- NOTE | 2021-08-13 14:32 | PT-IP ANOTE ---
Attempted to see pt at 14:24, pt very anxious about current situation/no longer having a place to live and refused therapy at this time. Will check back on pt tomorrow.
--- NOTE | 2021-08-13 15:46 | CM.DPC ---
DCP/continued: LOZENGE DOUGH MIXER placed call to [facility] worker/Anya this AM. She confirms that she will be going to residence to find out if son is there and patient can be sent home via non-urgent BLS transport. 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 Received call from Anya indicating that son was not in the residence, she knocked loudly on door and no answer. A few minutes later son appeared from the bhakta indicating that they have been evicted from residence. Per son they received 3day notification. LOZENGE DOUGH MIXER spoke with provider and it was determined that sending patient via BLS today would be unsafe. Met with patient and she is in agreement to complete Medicaid application. LOZENGE DOUGH MIXER completed both Medicaid application and expedited SONY application with patient. In addition, requested ARCHITECTURAL ENGINEERING TEACHER send clinicals to [facility] SNF's for Medicare COVID waiver stay. Patient does report being incredibly weak and agreeable to SNF. Patient made aware of current situation with her son. He has not come to see her or called. Patient emotional when she discusses her son and reports that she has lost both her daughter and son. Patient also reports that her spouse committed suicide many years ago. CM team to look for SNF under COVID waiver for rehabilitation until long-term placement can be found. Left message with [facility] per Anya's request for additional financial information. Also spoke again with [facility] this afternoon re: the above. Per Anya they will assist as much as possible. Current plan is to attempt placement at SNF until long-term placement can be obtained. P: Pending. HAWK
[2021-08-13] MEDS: ATORVASTATIN 20 MG TABLET 40 MG PO (21:16)
[2021-08-13] MEDS: ACETAMINOPHEN 325 MG TABLET 650 MG PO (21:16)
[2021-08-14 06:00] VITALS: BP 99/66; PULSE 88; RESP 18; TEMP 36.1; O2SAT 94
[2021-08-14 07:40] VITALS: BP 101/62; PULSE 57; RESP 18; TEMP 35.9; O2SAT 98
[2021-08-14 08:02] VITALS: BP 101/62; PULSE 64
[2021-08-14] MEDS: LOSARTAN 50 MG TABLET PO (08:02)
[2021-08-14] MEDS: METOPROLOL IR 25 MG TABLET 12.5 MG PO (08:02)
[2021-08-14] MEDS: PANTOPRAZOLE DR 40 MG TABLET PO (08:03)
[2021-08-14] MEDS: APIXABAN 5 MG TABLET PO ×2 (08:03→20:12)
[2021-08-14] MEDS: GABAPENTIN 300 MG CAPSULE PO ×3 (08:03→20:12)
--- NOTE | 2021-08-14 09:29 | CM.DPNOTE ---
Emailed referral to [facility] [email or web address] ; Osvaldo Prado [facility] [email or web address]; and [facility]ag[facility] at [email or web address] per Rolanda. Liz Tomlin CM Assist.
--- NOTE | 2021-08-14 10:55 | PT.IPTN ---
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 (08/08/21) Physical Therapy Treatment Note M2 PT-IP Current Condition Start: 08/10/21 12:34 Freq: NEEDED Status: Active Protocol: Document 08/12/21 11:41 SP (Rec: 08/12/21 12:33 SP [id number]) Physical Therapy Current Condition Current Condition Evaluation Date 08/10/21 Treatment Diagnosis a-fib; difficulty in walking Onset Date 08/08/21 M3 PT-IP Subjective Start: 08/10/21 12:34 Freq: NEEDED Status: Active Protocol: Document 08/14/21 10:38 KS (Rec: 08/14/21 11:07 KS [id number]) Subjective Physical Therapy Visit Type Type Treatment Note Visit Start Time 10:38 Visit Stop Time 10:55 Total Visit Minutes 17 Number of AUCTION ASSISTANT Visits 2 Physical Therapy Visit Comments Patient Comments Pt refusing OOB mobility, but agreeable to leg exercises in bed. Per nursing, pt up w/ 1 PA. M4 PT-IP Mobility and Gait Start: 08/10/21 12:34 Freq: NEEDED Status: Active Protocol: Document 08/14/21 10:38 KS (Rec: 08/14/21 11:07 KS [id number]) PT-Transfer Assessment Comments Mobility Comments Pt in bed upon arrival and still very anxious about living situation and how she will obtain her purse and pictures of her late . Pt refused OOB mobility, per nursing staff has been up multiple times w/ 1 PA. She performed 2x10 bilateral ankle pumps, quad sets, glute sets, SLR, and heel slides w/ verbal and tactile cues. Pt left in bed w/ all needs in reach. Gait Assessment Comments Gait Comments Did not assess. Stair Climbing Assessment Comments Stair Climbing Comments Did not assess. M5 PT-IP Objective Assessments Start: 08/10/21 12:34 Freq: NEEDED Status: Active Protocol: Document 08/10/21 11:45 AB (Rec: 08/10/21 12:48 AB [id number]) Orientation Orientation/Cognition Level of Alertness Alert Orientation Name,Situation Language Function Ability Garbled Speech Safety Awareness Decreased Safety Awareness Memory Description Short Term Impaired Gross Range of Motion Lower Extremity ROM Assessment Within Functional Limits Strength Lower Extremity Strength Hip 4-/5 Knee 4/5 Coordination Assessment Gross Coordination Gross Coordination WNL Sensation Assessment Sensation Gross Sensation WNL Muscle Tone Muscle Tone WNL Yes M6 PT-IP Treatment Start: 08/10/21 12:34 Freq: NEEDED Status: Active Protocol: Document 08/14/21 10:38 KS (Rec: 08/14/21 11:07 KS [id number]) Physical Therapy Treatment Exercises Exercises Ankle Pumps,Gluteal Sets,Quad Sets,Heel Slides,Straight Leg Raises Education Education Provided Safety M7 PT-IP Assessment and Plan Start: 08/10/21 12:34 Freq: NEEDED Status: Active Protocol: Document 08/14/21 10:38 KS (Rec: 08/14/21 11:07 KS [id number]) PT Summary Assessment and Plan Potential Rehabilitation Potential Good Status of Condition at Evaluation Stable Summary Impairments ROM,Strength,Balance,Cognition ,Transfers,Gait,Activity Tolerance Progress Towards Goals Progressing Toward Goals,Slow Progress due to Activity Tolerance Assessment Summary Pt very anxious about current living situation, but had good tolerance for LE exercises to promote blood flow and strengthening. Will continue to assess progress and mobility when pt agreeable. Goals Transfer Goal Independent,Front Wheeled Walker Gait Goal Independent,Front Wheel Walker Gait Distance 200 Other Goals improve ambulation without AD 50 ft SBA up/down 6 steps R rail ascending SBA Days to Meet Goals 10 Frequency of Treatment Frequency Of Treatment Once a Day Treatment Plan Physical Therapy Treatment Plan Transfer Training,Gait Training,Therapeutic Exercise, Balance Retraining,Discharge Planning,Hot or Cold Pack, Neuromuscular Re-ed, Coordination Retraining Other Recommendations and Next Treatment safety transfers, gait w/ FWW Focus vs LRAD. Precautions Other Precautions falls Recommendations To Nursing Amount of Assist Needed Standby Assistance,1 Person Assist Discharge Recommendations PT Discharge Recommendations Home with Assistance,Home Health Transportation Needs at Discharge Private Vehicle
--- NOTE | 2021-08-14 11:53 | CM.DPNOTE ---
Addendum entered by JOSHUA Marrero 08/14/21 12:02: ADD: Umu Thierno declines Original Note: DCP Note Reviewed chart. Spoke w/Melvin Wells at [facility]; he asks for patient's LEONOR application to be resent. Emailed this to [email or web address] Melvin states this has been received, expedited request has also been received and he will work on assigning [facility] director of social services MeanwhileLiz CMA has faxed to: [facility] - they do not have a LEONOR bed available [facility] in [place]- they have one LEONOR bed available and will follow along as process to secure LEONOR coverage unfolds. Contact: Ayde Ramires# [phone] [facility] JW
[2021-08-14 12:00] VITALS: BP 112/62; PULSE 64; RESP 17; TEMP 36.1; O2SAT 96
--- NOTE | 2021-08-14 13:02 | OT.IPNOTE ---
Pt not wanting to get up as states just used the bathroom earlier. Pt wanting to talk to her son, case management and nursing aware. Able to assist pt to reposition pillows for her head. No charge.
--- NOTE | 2021-08-14 16:00 | PM.PN.1 ---
Subjective Subjective Date Patient Seen: 08/14/21 Interval history: Hospitalist follow up visit. Patient resting comfortably. Said she was able to exercise her arms and legs today. Feels that she is being well taken care of. Still very sad better she has not seen her son. Not complaining of any fever chills nausea vomiting or diaphoresis. No chest pain or palpitations. No shortness of breath wheezing or cough. No abdominal pain constipation or diarrhea. Able to move all extremities volitionally. Does have general weakness Exam Vital Signs (past 8 hours): - 08/14/21 08:02 08/14/21 11:00 08/14/21 12:00 Temperature 97.0 F L Pulse Rate 64 64 Respiratory Rate 17 Blood Pressure 101/62 112/62 Pulse Oximetry 96 Oxygen Delivery Method Room Air Oxygen Flow Rate 0 Oxygen Delivery Method Room Air Oxygen Flow Rate 0 Narrative Exam Narrative: Patient alert oriented to place and person. Appears to be in no distress. HEENT: Pupils equal react to light extraocular movements normal. Neck is supple. Trachea is midline. Cardiovascular: Heart sounds S1-S2. No extra sounds or murmurs. Peripheral pulses equal bilaterally. Respiratory: Adequate air entry throughout the lung chen. No wheezes or crackles. Gastrointestinal: Abdomen is soft. Bowel sounds normal. Musculoskeletal: Able to move all extremities volitionally. No localized strength deficits. Neuro: Normal sensation of all extremities. No localized deficits. 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) Asthma Breast cancer (~2001) CAD (coronary artery disease) Calcified nodule Cerebrovascular accident (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 right middle cerebral artery (04/27/17) Cervical cancer, FIGO stage I Cholelithiasis Chronic back pain Developmental disorder Diarrhea Essential hypertension (02/19/12) Failure to thrive in adult Fibrocystic breast disease GERD (gastroesophageal reflux disease) History of colon polyps (02/19/12) History of left breast cancer (~2008) Hyperlipidemia IBS (irritable bowel syndrome) Measles 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, bilateral Personal history of other malignant neoplasm of skin (02/19/12) 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) Systolic congestive heart failure with reduced left ventricular function, NYHA class 2 (10/26/10) Surgical History Anesthesia Status post arthroscopy Status post biopsy (~2014) Status post breast lumpectomy (~2008) Status post cholecystectomy Status post coronary artery bypass graft Status post hysterectomy (~2009) Family History Father Myocardial infarct Mother Maternal complication related to childbirth Sister Traumatic amputation Social History household members: children Smoking Status: Never smoker alcohol intake: never Assessment & Plan Assessment & Plan narrative: Current status of diagnosis are as follows: 1. Chest pain ?Patient presented with complaints of chest pain.? Negative workup for [place]. Low risk cardiac stress test.? Likely musculoskeletal in nature.? No symptoms today 2. Atrial fibrillation, felt to be permanent ? Remains rate controlled.? Is on chronic apixaban. 3.? Coronary artery disease ? Uncertain as to her previous cardiac interventions.? Has a sternal scar from prior intervention (pt does not recall what was done).? 4.? Chronic GERD ? Suspect this could have been contributing to her chest pain.? It may be she has esophageal spasm that was responsive to nitroglycerin.? Well controlled today. 5. CHF ? Appears euvolemic presently. ?6. Psychosocial issues / caregiving issues Son not able to take care of patient.? New place for residence needs to be found for the patient. ?7. Cognitive impairment/dementia ? She will need / supervision.? She likely does not have capacity to make her own healthcare decisions. Have consulted Psychiatry to help with this. ? 8. Acute severe protein calorie malnutrition Weight loss over the last 3 months.? Oral nutritional supplementation as tolerated.? Patient eating well in the hospital. 9. Some depression secondary to loss of interaction with her son. Have consulted Psychiatry. ?code status Full ?prophylaxis On apixaban Time Spent With Patient Critical Care time: I spent a total of [] minutes of critical care time on this patient's care today; this time is exclusive of procedural time. Quality VTE Deep Vein Thrombosis/Pulmonary Embolism Present on Admission: No
[2021-08-14 16:15] VITALS: BP 121/61; PULSE 79; RESP 18; TEMP 37.1; O2SAT 96
[2021-08-14] MEDS: TRAMADOL 50 MG TABLET PO (16:59)
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
--- NOTE | 2021-08-14 18:16 | PC.NURSE ---
Pt is AxOx4, calm, and cooperative. VSS, pt denies pain but pt feels very weak and sleepy most of the day. Lungs diminished throughout and crackles inspirator bilateral and posterior. BG-89/114/89. Pt has poor appetite and ate very small amt of food. Continued droplet precaution. No other changes. Continue monitor.
--- NOTE | 2021-08-14 18:27 | PC.NURSE ---
Pt is AxOx3, calm and cooperative. VSS, pt has good appetite and sleeping between meal. However, pt c.o feeling no good and pain whole body so pt recieved PRN Tramadol 50mg PO around 1700 with good effect. Pt did not eat dinner. Otherwise, no changes.
[2021-08-14] MEDS: ATORVASTATIN 20 MG TABLET 40 MG PO (20:12)
[2021-08-15] VITALS (8 sets, daily range): BP systolic 109–131; BP diastolic 60–72; PULSE 61–84; RESP 15–68; TEMP 35.9–37.1; O2SAT 96–98
[2021-08-15] MEDS: GABAPENTIN 300 MG CAPSULE PO ×3 (09:09→20:09)
[2021-08-15] MEDS: PANTOPRAZOLE DR 40 MG TABLET PO (09:09)
[2021-08-15] MEDS: METOPROLOL IR 25 MG TABLET 12.5 MG PO (09:09)
[2021-08-15] MEDS: APIXABAN 5 MG TABLET PO ×2 (09:09→20:09)
[2021-08-15] MEDS: LOSARTAN 50 MG TABLET PO (09:09)
[2021-08-15] MEDS: ACETAMINOPHEN 325 MG TABLET 650 MG PO (10:08)
--- NOTE | 2021-08-15 11:03 | PT.IPTN ---
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) use of anticoagulants (08/08/21) Physical Therapy Treatment Note M2 PT-IP Current Condition Start: 08/10/21 12:34 Freq: NEEDED Status: Active Protocol: Document 08/12/21 11:41 SP (Rec: 08/12/21 12:33 SP [id number]) Physical Therapy Current Condition Current Condition Evaluation Date 08/10/21 Treatment Diagnosis a-fib; difficulty in walking Onset Date 08/08/21 M3 PT-IP Subjective Start: 08/10/21 12:34 Freq: NEEDED Status: Active Protocol: Document 08/15/21 10:50 KS (Rec: 08/15/21 11:14 KS [id number]) Subjective Physical Therapy Visit Type Type Treatment Note Visit Start Time 10:50 Visit Stop Time 11:03 Total Visit Minutes 13 Number of SEGMENTAL PAVER INSTALLER Visits 3 Physical Therapy Visit Comments Patient Comments Pt agreeable to working w/ therapy. M4 PT-IP Mobility and Gait Start: 08/10/21 12:34 Freq: NEEDED Status: Active Protocol: Document 08/15/21 10:50 KS (Rec: 08/15/21 11:14 KS [id number]) PT-Transfer Assessment Sit to and From Stand Sit to and from Stand Standby Assistance,Contact Guard Assistance,1 Person Assistance,Use of Upper Extremities Equipment Transfer Assistive Device Gait Belt,Front Wheeled Walker Orthotic/Prosthetic Devices or Brace: No Transfers Transfer Destination Chair Transfer Technique pt ambulated using FWW Transfer Ability Level of Assist Standby Assistance,Contact Guard Assistance,1 Person Assistance,Use of Upper Extremities Comments Mobility Comments Pt in chair upon arrival and at first refusing, but then agreeable to ambulation. SBA/ CGA for sit<>stand w/ FWW w/ safety cues. Pt ambulated ~60 ft around room w/ FWW SBA to CGA w/ cues for upright posture and close proximity of FWW. She tends to push FWW too far in front of her increasing flexed posture. She reported fatigue and returned to chair and completed 2x10 bilateral seated marches, ankle pumps, and LAQs. Pt left in chair w/ try in front and all needs in reach. Gait Assessment Gait Gait Assistance Required: Standby Assistance,Contact Guard Assist,1 Person Assist Distance (Feet) 60 Able to Maintain Weight Bearing Status No During Gait Assistive Devices Assistive Device Gait Belt,Front Wheeled Walker Orthotic/Prosthetic Devices or Brace: No Gait Deviations General Gait Pattern Antalgic,Decreased Stride Length,Decreased Feet Clearance,Flexed Trunk Factors Limiting Gait Function Factors Limiting Gait Function Decreased Activity Tolerance, Decreased Strength,Difficulty Following Directions,Limited Range of Motion,Poor Balance, Poor Safety Awareness Comments Gait Comments Please refer to mobility section for details. Stair Climbing Assessment Comments Stair Climbing Comments Did not assess. PT-Balance Assessment Sitting Balance and Reactions Static Sitting Balance Ability Normal Dynamic Sitting Balance Ability Good Standing Balance and Reactions Static Standing Balance Ability Fair Dynamic Standing Balance Ability Fair Device Used FWW M5 PT-IP Objective Assessments Start: 08/10/21 12:34 Freq: NEEDED Status: Active Protocol: Document 08/10/21 11:45 AB (Rec: 08/10/21 12:48 AB [email or web address]) Orientation Orientation/Cognition Level of Alertness Alert Orientation Name,Situation Language Function Ability Garbled Speech Safety Awareness Decreased Safety Awareness Memory Description Short Term Impaired Gross Range of Motion Lower Extremity ROM Assessment Within Functional Limits Strength Lower Extremity Strength Hip 4-/5 Knee 4/5 Coordination Assessment Gross Coordination Gross Coordination WNL Sensation Assessment Sensation Gross Sensation WNL Muscle Tone Muscle Tone WNL Yes M6 PT-IP Treatment Start: 08/10/21 12:34 Freq: NEEDED Status: Active Protocol: Document 08/15/21 10:50 KS (Rec: 08/15/21 11:14 KS [id number]) Physical Therapy Treatment Exercises Exercises Ankle Pumps Education Education Provided Safety Other Treatments Other Treatment Performed LAQs, seated marching M7 PT-IP Assessment and Plan Start: 08/10/21 12:34 Freq: NEEDED Status: Active Protocol: Document 08/15/21 10:50 KS (Rec: 08/15/21 11:14 KS [id number]) PT Summary Assessment and Plan Potential Rehabilitation Potential Good Status of Condition at Evaluation Stable Summary Impairments ROM,Strength,Balance,Cognition ,Transfers,Gait,Activity Tolerance Progress Towards Goals Progressing Toward Goals,Slow Progress due to Activity Tolerance Assessment Summary Pt continues to require SBA to CGA for mobility w/ FWW. Flexed posture and cues for FWW use, no LOB and able to avoid obstacles. Quick approach to fatigue. She could benefit from HHPT to improve activiy tolerance and functional mobility and to reinforce proper use of FWW. Goals Transfer Goal Independent,Front Wheeled Walker Gait Goal Independent,Front Wheel Walker Gait Distance 200 Other Goals improve ambulation without AD 50 ft SBA up/down 6 steps R rail ascending SBA Days to Meet Goals 10 Frequency of Treatment Frequency Of Treatment Once a Day Treatment Plan Physical Therapy Treatment Plan Transfer Training,Gait Training,Therapeutic Exercise, Balance Retraining,Discharge Planning,Hot or Cold Pack, Neuromuscular Re-ed, Coordination Retraining Other Recommendations and Next Treatment safety transfers, gait w/ FWW Focus vs LRAD. Precautions Other Precautions falls Recommendations To Nursing Amount of Assist Needed Standby Assistance,1 Person Assist Discharge Recommendations PT Discharge Recommendations Home with Assistance,Home Health Transportation Needs at Discharge Private Vehicle
--- NOTE | 2021-08-15 12:08 | OT.IPNOTE ---
Attempted to see pt for OT treatment and pt states able to do things on her own and not wanting to do anymore OT at this time. Nursing has been able to assist pt as she is at her baseline for needs and mainly needing assist for completeness and safety awareness. Able to notify nursing and case management of discharge pt from OT services.
[2021-08-15] MEDS: TRAMADOL 50 MG TABLET PO (13:52)
--- NOTE | 2021-08-15 13:56 | CM.DPNOTE ---
DCP Note manager call center Turbo Operator requested through EMILY Espino. [facility] Pulp Operator has been assigned. Her name is Miguel Allen. . Email: [email or web address] Attempted contact; LM. Assessment date? JW
--- NOTE | 2021-08-15 15:13 | P.PN_ITS ---
Subjective Subjective Interval history: Hospitalist follow-up visit Patient mainly focus on thinking about her possessions that she does not have liked her clothes, her photos of her family, some personal items like deodorant and comb etc. and a few other belongings that very personal to her including her bank book. She is worried that they were going to be thrown out and she does not want that to happen. Also she is worried about the puppy that was living with her whether it is being taking care of and getting its nail clipped properly. She is not as focused on her son today. It is more practical reas onable concerns of hers to feel connected to her things that she owned. She is also worried about how all she is going to find a place to live. She was reassured that we are looking into that for her. She says she is eating well mostly Ensure and is doing exercises for arms and legs. Is in a good mood other than her worry about her things. Exam Vital Signs (past 8 hours): - 08/15/21 08:30 08/15/21 09:09 08/15/21 08:30 Temperature 97.6 F 97.6 F Pulse Rate 68 68 68 Respiratory Rate 16 68 H Blood Pressure 126/72 126/72 126/72 Pulse Oximetry 96 96 Oxygen Delivery Method Oxygen Flow Rate 0 0 08/15/21 11:00 08/15/21 12:00 Temperature 97.1 F L Pulse Rate 61 Respiratory Rate 16 Blood Pressure 109/60 Pulse Oximetry 96 Oxygen Delivery Method Room Air Oxygen Flow Rate 0 Oxygen Delivery Method Room Air Oxygen Flow Rate 0 Narrative Exam Narrative: Patient alert oriented to person and place. HEENT: Head normocephalic pupils equal reactive to light extraocular movements normal. neck is supple. Neck nodes are nontender and nonpalpable. Cardiovascular: Heart sounds S1 and S2 no extra sounds or murmurs. No pedal edema Respiratory: Adequate air entry throughout the lung chen no wheezes or crackles. Gastrointestinal: Abdomen is soft. Nontender. Bowel sounds normal Musculoskeletal: Able to move all extremities volitionally. No localized strength deficits Neuro: Normal sensation of all extremities. 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) Asthma Breast cancer (~2001) CAD (coronary artery disease) Calcified nodule Cerebrovascular accident (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 right middle cerebral artery (04/27/17) Cervical cancer, FIGO stage I Cholelithiasis Chronic back pain Depression (emotion) Developmental disorder Diarrhea Essential hypertension (02/19/12) Failure to thrive in adult Fibrocystic breast disease GERD (gastroesophageal reflux disease) History of colon polyps (02/19/12) History of left breast cancer (~2008) Hyperlipidemia IBS (irritable bowel syndrome) Measles 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, bilateral Personal history of other malignant neoplasm of skin (02/19/12) 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) Systolic congestive heart failure with reduced left ventricular function, NYHA class 2 (10/26/10) Surgical History Anesthesia Status post arthroscopy Status post biopsy (~2014) Status post breast lumpectomy (~2008) Status post cholecystectomy Status post coronary artery bypass graft Status post hysterectomy (~2009) Family History Father Myocardial infarct Mother Maternal complication related to childbirth Sister Traumatic amputation Social History household members: children Smoking Status: Never smoker alcohol intake: never Assessment & Plan Assessment & Plan narrative: Current status of diagnosis are as follows: 1. Chest pain ?Patient presented with complaints of chest pain.? Negative workup for [place]. Low risk cardiac stress test.? Likely musculoskeletal in nature.? No symptoms today 2. Atrial fibrillation, felt to be permanent ? Remains rate controlled.? Is on chronic apixaban. 3.? Coronary artery disease ? Uncertain as to her previous cardiac interventions.? Has a sternal scar from prior intervention (pt does not recall what was done).? 4.? Chronic GERD ? Suspect this could have been contributing to her chest pain.? It may be she has esophageal spasm that was responsive to nitroglycerin.? Well controlled today in treating with pantoprazole. 5. CHF ? Appears euvolemic presently. ?6. Psychosocial issues / caregiving issues Son not able to take care of patient.? New place for residence needs to be found for the patient. Patient is worried about how this will be found. She is also worried that her personal things over the thrown out from her previous residence. ?7. Cognitive impairment/dementia ? She will need 24/7 supervision.? She likely does not have capacity to make her own healthcare decisions.? Have consulted Psychiatry to help with this. ? 8. Acute severe protein calorie malnutrition Weight loss over the last 3 months.? Oral nutritional supplementation as tolerated.? Patient eating well in the hospital. Had multivitamin, vitamin-D and calcium for regular supplementation. 9. Some depression secondary to loss of interaction with her son. Appears to be normal reactive depression, is improving as patient search through things in her mind. Start mirtazapine 7.5 mg q.h.s. Have consulted Psychiatry and appreciate their input.? ?code status Operations And Maintenance Technican Spent With Patient Critical Care time: I spent a total of [] minutes of critical care time on this patient's care today; this time is exclusive of procedural time. Quality VTE Deep Vein Thrombosis/Pulmonary Embolism Present on Admission: No
--- NOTE | 2021-08-15 17:41 | PC.NURSE ---
Pt is AxOx2-3, pleasant and cooperative. VSS, pt c/o headache and recieved PRN Tylenon 650mg with good effect. Later afternoon, pt c/o back pain and recieved PO Tramadol 50mg with good effect. Pt has been sleeping a lot. Pt has eating ok but not as much as before. Otherwise, no changes.
[2021-08-15] MEDS: MIRTAZAPINE 15 MG TABLET 7.5 MG PO (20:09)
[2021-08-15] MEDS: ATORVASTATIN 20 MG TABLET 40 MG PO (20:09)
[2021-08-16] VITALS (8 sets, daily range): BP systolic 102–134; BP diastolic 48–77; PULSE 54–74; RESP 14–19; TEMP 35.6–36.8; O2SAT 93–98
[2021-08-16] MEDS: LOSARTAN 50 MG TABLET PO (09:26)
[2021-08-16] MEDS: GABAPENTIN 300 MG CAPSULE PO ×3 (09:27→20:00)
[2021-08-16] MEDS: METOPROLOL IR 25 MG TABLET 12.5 MG PO (09:27)
[2021-08-16] MEDS: MULTIVITAMIN 1 TABLET 1 TAB PO (09:27)
[2021-08-16] MEDS: CALCIUM CARBONATE 600 MG TABLET PO (09:27)
[2021-08-16] MEDS: APIXABAN 5 MG TABLET PO ×2 (09:27→20:00)
[2021-08-16] MEDS: CHOLECALCIFEROL (VITAMIN D3) 1,000 UNIT TABLET 1000 UNIT PO (09:27)
[2021-08-16] MEDS: PANTOPRAZOLE DR 40 MG TABLET PO (09:27)
--- NOTE | 2021-08-16 10:38 | PT-IP ANOTE ---
Attempted to see pt at 10:38, pt refused PT due to severe head and neck pain. HERB GROWER aware.
[2021-08-16] MEDS: ACETAMINOPHEN 325 MG TABLET 650 MG PO (10:58)
--- NOTE | 2021-08-16 13:25 | PT-IP ANOTE ---
D/C pt from PT due to pt being at baseline. Pt agrees she is mobilizing at her baseline and no longer wants therapy services at this time. PT, RN, and DIRECTOR ZONE aware. Pt has been up w/ nursing staff 1 PA.
--- NOTE | 2021-08-16 14:29 | PT.IPTN ---
Current Diagnoses Depression, unspecified (08/08/21) Unspecified atrial fibrillation (08/08/21) Other symptoms and signs involving cognitive functions and awareness (08/08/21) detention (current) use of anticoagulants (08/08/21) Physical Therapy Treatment Note M2 PT-IP Current Condition Start: 08/10/21 12:34 Freq: NEEDED Status: Active Protocol: Document 08/12/21 11:41 SP (Rec: 08/12/21 12:33 SP [id number]) Physical Therapy Current Condition Current Condition Evaluation Date 08/10/21 Treatment Diagnosis a-fib; difficulty in walking Onset Date 08/08/21 M3 PT-IP Subjective Start: 08/10/21 12:34 Freq: NEEDED Status: Active Protocol: Document 08/16/21 14:26 AB (Rec: 08/16/21 14:29 AB [id number]) Subjective Physical Therapy Visit Type Type Administrative Note Notes AUTOMOTIVE BUYER informed PT regarding pt's mobility and cognitive issues affecting mobility independence and safety awareness and will require SBA to CGA 24/7 assist. Pt. is at maximum functional status considering medical issues and safety awareness. AUTOMOTIVE BUYER informed pt, registered nurse hh case manager and nursing staff with d/c PT intervention. confectionery laboratory manager informed that they are looking for a [facility] placement for M7 PT-IP Assessment and Plan Start: 08/10/21 12:34 Freq: NEEDED Status: Active Protocol: Document 08/16/21 14:26 AB (Rec: 08/16/21 14:29 AB [id number]) PT Summary Assessment and Plan Frequency of Treatment Frequency Of Treatment Discharge
--- NOTE | 2021-08-16 16:54 | PM.PN.1 ---
Subjective Subjective Date Patient Seen: 08/16/21 Time Patient Seen: 08:00 Interval history: Today she has no complaints. Exam Vital Signs (past 8 hours): - 08/16/21 09:26 08/16/21 09:00 08/16/21 11:00 Temperature 97.2 F L Pulse Rate 66 66 Respiratory Rate 18 Blood Pressure 134/77 134/77 Pulse Oximetry 98 Oxygen Delivery Method Room Air Oxygen Flow Rate 0 08/16/21 12:00 Temperature 96.4 F L Pulse Rate 64 Respiratory Rate 16 Blood Pressure 102/61 Pulse Oximetry 96 Oxygen Delivery Method Oxygen Flow Rate 0 Oxygen Delivery Method Room Air Oxygen Flow Rate 0 Narrative Exam Narrative: GEN: no acute distress CV: regular rate and rhythm, no murmurs Respiratory: clear bilaterally Objective Labs Result Diagrams: 08/12/21 05:47 08/12/21 05:47 [facility] Medical History (Updated 08/14/21 @ 18:03 by Tasia Lechuga DO) Abdominal pain Acute pancreatitis Anticoagulated Anxiety 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) Asthma Breast cancer (~2001) CAD (coronary artery disease) Calcified nodule Cerebrovascular accident (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 right middle cerebral artery (04/27/17) Cervical cancer, FIGO stage I Cholelithiasis Chronic back pain Depression (emotion) Developmental disorder Diarrhea Essential hypertension (02/19/12) Failure to thrive in adult Fibrocystic breast disease GERD (gastroesophageal reflux disease) History of colon polyps (02/19/12) History of left breast cancer (~2008) Hyperlipidemia IBS (irritable bowel syndrome) Measles 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, bilateral Personal history of other malignant neoplasm of skin (02/19/12) 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 Chest pain ?Patient presented with complaints of chest pain.? Negative workup for [place]. Low risk cardiac stress test. 2. Atrial fibrillation, felt to be permanent ? Remains rate controlled.? Is on chronic apixaban. 3.? Coronary artery disease -stable, no new tra 4.? Chronic GERD ?-controlled, continue PPI 5. CHF -stable, euvolemic ?6. Psychosocial issues / caregiving issues -son not available to take care of patient ?7. Cognitive impairment/dementia -needs 08/09 supervision ? 8. Acute severe protein calorie malnutrition -weight loss over 3 months -oral supplementation ordered -follow dietary recs Weight loss over the last 3 months.? Oral nutritional supplementation as tolerated.? Patient eating well in the hospital. Had multivitamin, vitamin-D and calcium for regular supplementation. 9. Depression -continue mirtazapine Dispo: likely needs long term care pharmacist care, medically stable for dischargel Time Spent With Patient Critical Care time: I spent a total of [] minutes of critical care time on this patient's care today; this time is exclusive of procedural time. Quality VTE Deep Vein Thrombosis/Pulmonary Embolism Present on Admission: No
--- NOTE | 2021-08-16 18:36 | PC.NURSE ---
Pt is AxOx2-3, pleasant and cooperative. VSS, pt c/o headache and recieved PRN Tylenol once with good effect. Pt is eating well as usual. Pt is voiding well. Pt is usually continent but today pt was incontinent x2. Last BM on 08/16. No other changes. Continue monitor.
[2021-08-16] MEDS: MIRTAZAPINE 15 MG TABLET 7.5 MG PO (20:00)
[2021-08-16] MEDS: ATORVASTATIN 20 MG TABLET 40 MG PO (20:00)
[2021-08-17] VITALS (9 sets, daily range): BP systolic 127–145; BP diastolic 57–79; PULSE 59–91; RESP 16–19; TEMP 35.8–36.4; O2SAT 95–99
[2021-08-17] MEDS: TRAMADOL 50 MG TABLET PO ×2 (10:01→20:12)
[2021-08-17] MEDS: MULTIVITAMIN 1 TABLET 1 TAB PO (10:04)
[2021-08-17] MEDS: METOPROLOL IR 25 MG TABLET 12.5 MG PO (10:04)
[2021-08-17] MEDS: PANTOPRAZOLE DR 40 MG TABLET PO (10:04)
[2021-08-17] MEDS: CALCIUM CARBONATE 600 MG TABLET PO (10:04)
[2021-08-17] MEDS: LOSARTAN 50 MG TABLET PO (10:04)
[2021-08-17] MEDS: GABAPENTIN 300 MG CAPSULE PO ×3 (10:05→20:12)
[2021-08-17] MEDS: CHOLECALCIFEROL (VITAMIN D3) 1,000 UNIT TABLET 1000 UNIT PO (10:05)
[2021-08-17] MEDS: APIXABAN 5 MG TABLET PO ×2 (10:05→20:12)
[2021-08-17] MEDS: ACETAMINOPHEN 325 MG TABLET 650 MG PO (12:22)
--- NOTE | 2021-08-17 15:11 | P.PN_ITS ---
Subjective Subjective Date Patient Seen: 08/17/21 Interval history: She was complaining of headache today. Exam Vital Signs (past 8 hours): - 08/17/21 10:12 08/17/21 10:12 08/17/21 12:00 Temperature 96.8 F L Pulse Rate 91 H Respiratory Rate 17 Blood Pressure 145/79 H Pulse Oximetry 98 99 Oxygen Delivery Method Room Air Room Air Oxygen Flow Rate 0 Oxygen Delivery Method Room Air Oxygen Flow Rate 0 Narrative Exam Narrative: GEN: no acute distress CV: regular rate and rhythm, no murmurs Respiratory: clear bilaterally Objective Labs Result Diagrams: 08/12/21 05:47 08/12/21 05:47 [facility] Medical History (Updated 08/14/21 @ 18:03 by Tasia Lechuga DO) Abdominal pain Acute pancreatitis Anticoagulated Anxiety 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) Asthma Breast cancer (~2001) CAD (coronary artery disease) Calcified nodule Cerebrovascular accident (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 right middle cerebral artery (04/27/17) Cervical cancer, FIGO stage I Cholelithiasis Chronic back pain Depression (emotion) Developmental disorder Diarrhea Essential hypertension (02/19/12) Failure to thrive in adult Fibrocystic breast disease GERD (gastroesophageal reflux disease) History of colon polyps (02/19/12) History of left breast cancer (~2008) Hyperlipidemia IBS (irritable bowel syndrome) Measles 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, bilateral Personal history of other malignant neoplasm of skin (02/19/12) 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 Chest pain ?Patient presented with complaints of chest pain.? Negative workup for [place]. Low risk cardiac stress test. 2. Atrial fibrillation, felt to be permanent ? Remains rate controlled.? Is on chronic apixaban. 3.? Coronary artery disease -stable, no new tra 4.? Chronic GERD ?-controlled, continue PPI 5. CHF -stable, euvolemic ?6. Psychosocial issues / caregiving issues -son not available to take care of patient ?7. Cognitive impairment/dementia -needs 08/09 supervision ? 8. Acute severe protein calorie malnutrition -weight loss over 3 months -oral supplementation ordered -follow dietary recs Weight loss over the last 3 months.? Oral nutritional supplementation as tolerated.? Patient eating well in the hospital. Had multivitamin, vitamin-D and calcium for regular supplementation. 9. Depression -continue mirtazapine Dispo: likely needs local intermodal truck driver care, medically stable for discharge Time Spent With Patient Critical Care time: I spent a total of [] minutes of critical care time on this patient's care today; this time is exclusive of procedural time. Quality VTE Deep Vein Thrombosis/Pulmonary Embolism Present on Admission: No
[2021-08-17] MEDS: MIRTAZAPINE 15 MG TABLET 7.5 MG PO (20:11)
[2021-08-17] MEDS: ATORVASTATIN 20 MG TABLET 40 MG PO (20:12)
[2021-08-18] VITALS (9 sets, daily range): BP systolic 88–151; BP diastolic 62–77; PULSE 58–85; RESP 15–17; TEMP 36–36.2; O2SAT 92–97
[2021-08-18] MEDS: LOSARTAN 50 MG TABLET PO (09:25)
[2021-08-18] MEDS: PANTOPRAZOLE DR 40 MG TABLET PO (09:25)
[2021-08-18] MEDS: METOPROLOL IR 25 MG TABLET 12.5 MG PO (09:29)
[2021-08-18] MEDS: GABAPENTIN 300 MG CAPSULE PO ×3 (09:29→20:22)
[2021-08-18] MEDS: CHOLECALCIFEROL (VITAMIN D3) 1,000 UNIT TABLET 1000 UNIT PO (09:29)
[2021-08-18] MEDS: MULTIVITAMIN 1 TABLET 1 TAB PO (09:29)
[2021-08-18] MEDS: CALCIUM CARBONATE 600 MG TABLET PO (09:29)
[2021-08-18] MEDS: APIXABAN 5 MG TABLET PO ×2 (09:30→20:21)
[2021-08-18] MEDS: ACETAMINOPHEN 325 MG TABLET 650 MG PO (09:32)
--- NOTE | 2021-08-18 12:43 | P.PN_ITS ---
Subjective Subjective Date Patient Seen: 08/18/21 Time Patient Seen: 08:30 Interval history: Chana Garrido is an 86-year-old female admitted by me on August 08 one month after she had been admitted and discharged for failure to thrive. Patient was admitted for chest pain found to be reproducible and found to be noncardiac. She asks where her son is and where her belongings are that were in the apartment she was living in. She denies currently having chest pain, nausea vomiting, shortness of breath, abdominal pain, dysuria, diarrhea constipation. She states that she does not really care for the food here because she does not get her usual carbohydrates that she likes to eat. Patient is currently pending guardianship as her family appears to have abandoned their responsibility in taking care of her and she does not really have a place to go. She was found to have a slums score of 13 of 20, was evaluated by Psychiatry who rendered an opinion that she likely did not have decisional capacity but that they did want to weigh in on whether she was legally capable of making her own decisions. Exam Vital Signs (past 8 hours): - 08/18/21 09:25 08/18/21 08:00 08/18/21 09:00 Temperature 96.9 F L Pulse Rate 85 Respiratory Rate 16 Blood Pressure 151/77 H 151/77 H Pulse Oximetry 92 92 Oxygen Delivery Method Room Air Oxygen Flow Rate 0 0 08/18/21 11:59 Temperature 97.1 F L Pulse Rate 58 L Respiratory Rate 16 Blood Pressure 112/66 Pulse Oximetry 97 Oxygen Delivery Method Oxygen Flow Rate 0 Oxygen Delivery Method Room Air Oxygen Flow Rate 0 Narrative Exam Narrative: Gen: Alert, oriented, cachectic appearing 86 y.o. female, NAD HEENT: normocephalic, atraumatic, conjunctiva clear, sclera non-icteric, oral mucosa pink and moist Neck: supple, full ROM, no JVD, trachea is midline Resp: Lungs sounds are diminished but clear, non-labored breathing CV: RRR, no murmur or rubs Abd: soft, non-tender, normoactive BTs Skin: no lesions or rashes, dry and intact Neuro: Alert and oriented to self and place w/no focal deficits. Speech clear and coherent. Extremities: moves all 4 extremities, is ambulatory, negative [place]?s sign Psyche: Appears to have poor judgment but with normal mood and affect. 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) Asthma Breast cancer (~2001) CAD (coronary artery disease) Calcified nodule Cerebrovascular accident (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 right middle cerebral artery (04/27/17) Cervical cancer, FIGO stage I Cholelithiasis Chronic back pain Depression (emotion) Developmental disorder Diarrhea Essential hypertension (02/19/12) Failure to thrive in adult Fibrocystic breast disease GERD (gastroesophageal reflux disease) History of colon polyps (02/19/12) History of left breast cancer (~2008) Hyperlipidemia IBS (irritable bowel syndrome) Measles 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, bilateral Personal history of other malignant neoplasm of skin (02/19/12) 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) Systolic congestive heart failure with reduced left ventricular function, NYHA class 2 (10/26/10) Surgical History Anesthesia Status post arthroscopy Status post biopsy (~2014) Status post breast lumpectomy (~2008) Status post cholecystectomy Status post coronary artery bypass graft Status post hysterectomy (~2009) Family History Father Myocardial infarct Mother Maternal complication related to childbirth Sister Traumatic amputation Social History household members: children Smoking Status: Never smoker alcohol intake: never Assessment & Plan Assessment & Plan narrative: Chana Garrido is currently awaiting guardianship eventual placement to a safe living environment. 1. Chest pain * Currently denies * Negative workup for SD. Low risk cardiac stress test. 2. Atrial fibrillation, felt to be permanent * rate controlled.? Is on chronic apixaban. 3.? Coronary artery disease * stable, no new complaints 4.? Chronic GERD * controlled, continue PPI 5. CHF * stable, she is euvolemic ?6. Psychosocial issues / caregiving issues * Son not available or appears to be able to take care of patient ?7. Cognitive impairment/dementia * needs 24/ supervision 8. Acute severe protein calorie malnutrition * weight loss over 3 months * oral supplementation ordered * follow dietary recs * Oral nutritional supplementation as tolerated.? Patient eating well in the ho spital.? Had multivitamin, vitamin-D and calcium for regular supplementation. 9. Depression * continue mirtazapine COVID-19 COVID-19 status: Negative Result date/Date tested (Pos, Neg/Pending): 08/07/21 Time Spent With Patient Critical Care time: I spent a total of [] minutes of critical care time on this patient's care today; this time is exclusive of procedural time. Quality VTE Deep Vein Thrombosis/Pulmonary Embolism Present on Admission: No MIPS - Admit I confirm the patient?s Advance Care Plan is present, Code status is documented, Surrogate decision maker is in patient?s record [If Yes, STOP here]: Yes MIPS - DC The patient has current or prior documentation of left ventricular ejection fraction (LVEF) less than 40%, or moderate or severely depressed left ventric ular systolic function.: No
[2021-08-18] MEDS: PHENOL LIQUID 100 SPRAYS/BOTTLE SPRAY MM (17:18)
[2021-08-18] MEDS: ATORVASTATIN 20 MG TABLET 40 MG PO (20:21)
[2021-08-18] MEDS: MIRTAZAPINE 15 MG TABLET 7.5 MG PO (20:22)
--- NOTE | 2021-08-18 21:30 | PC.NURSE ---
Patient oriented except did not know day of month or day of week. Breath sounds CTA; last recorded oximetry reading was 96%. HRR although does have a history of afib. Last BP was low at 88/62 at 1800 but is currently asymtomatic. Denied nausea. BT present and is passing flatus. Denied dysuria, frequency or urgency with urination and reports she is continent of urine. Previous RN reports patient gets up to bathroom/commode with SBA + walker. Denied pain at time of assessment. Has been refusing SCD's so reminded to ankle wave. Fall risk score is high and bed alarm is activated.
[2021-08-19 06:40] VITALS: BP 107/63; PULSE 76; RESP 16; TEMP 36.3; O2SAT 96
[2021-08-19 11:11] VITALS: BP 138/74; PULSE 78; RESP 16; TEMP 36.4; O2SAT 96
[2021-08-19] MEDS: CHOLECALCIFEROL (VITAMIN D3) 1,000 UNIT TABLET 1000 UNIT PO (12:28)
[2021-08-19] MEDS: PANTOPRAZOLE DR 40 MG TABLET PO (12:28)
[2021-08-19] MEDS: MULTIVITAMIN 1 TABLET 1 TAB PO (12:29)
[2021-08-19] MEDS: CALCIUM CARBONATE 600 MG TABLET PO (12:29)
[2021-08-19] MEDS: METOPROLOL IR 25 MG TABLET 12.5 MG PO (12:29)
[2021-08-19] MEDS: APIXABAN 5 MG TABLET PO ×2 (12:29→20:15)
[2021-08-19] MEDS: GABAPENTIN 300 MG CAPSULE PO ×3 (12:29→20:14)
--- NOTE | 2021-08-19 12:48 | PC.NURSE ---
Patient is withdrawn and wants to stay in bed all day! Explained to patient that we will be getting her up for dinner later. It is good for her mobility and that we dont want her to develop skin issues, or pnuemonia. Patient took her meds around 1200 as she asked to take them later in the day. She ate some lunch and has been up to use the bathroom. Resting again on her r.side. She thinks that her son doesnt want anything to do with her and does not seem to understand her situation at home.
--- NOTE | 2021-08-19 13:48 | P.PN_ITS ---
Subjective Subjective Date Patient Seen: 08/19/21 Interval history: 86-year-old female with known coronary artery disease, permanent atrial fibrillation on apixaban, history of congestive heart failure ( unknown if systolic or diastolic), hypertension, hyperlipidemia, and prior stroke who was admitted with chest pain.? Patient underwent stress testing and had a low risk scan.? She was approved for discharge on August 08, but staff could not get her son on the phone who is her POA.? She remained in the hospital pending his ability to take her home.? APS referral was made August 08 in light of ongoing caregiving concerns.? 1 APS attempted to make contact with the patient's son, it was discovered that they had evidently been evicted. Additionally, they reported the patient has signed him out of the bhakta with a machete, looked at them, and returned into the bhakta. Patient has since been evaluated by Psychiatry with katalina for guardianship. This is now being pursued. Patient was asleep on my arrival. She briefly woke up and denied any complaints. Exam Vital Signs (past 8 hours): - 08/19/21 06:40 08/19/21 06:40 08/19/21 11:11 Temperature 97.3 F L 97.6 F Pulse Rate 76 78 Respiratory Rate 16 16 Blood Pressure 107/63 138/74 Pulse Oximetry 96 96 96 Oxygen Delivery Method Room Air Oxygen Flow Rate 0 0 08/19/21 12:00 Temperature Pulse Rate Respiratory Rate Blood Pressure Pulse Oximetry Oxygen Delivery Method Room Air Oxygen Flow Rate Oxygen Delivery Method Room Air Oxygen Flow Rate 0 Narrative Exam Narrative: GEN: Drowsy elderly female, lying in the hospital room on bed, NAD HEENT:NC, Face symmetric CHEST: Respiratory excursions symmetric, CTAB CV: RRR, no M/R/G ABD: Soft, mildly diffusely tender, ND, BT present in all 4 quadrants, no organomegaly or masses EXTR: warm, well perfused, no C/C/E SKIN: warm and dry, no rash NEURO: Nonfocal Objective Labs Result Diagrams: 08/12/21 05:47 08/12/21 05:47 [facility] Medical History Abdominal pain Acute pancreatitis Anticoagulated Anxiety 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) Asthma Breast cancer (~2001) CAD (coronary artery disease) Calcified nodule Cerebrovascular accident (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 right middle cerebral artery (04/27/17) Cervical cancer, FIGO stage I Cholelithiasis Chronic back pain Depression (emotion) Developmental disorder Diarrhea Essential hypertension (02/19/12) Failure to thrive in adult Fibrocystic breast disease GERD (gastroesophageal reflux disease) History of colon polyps (02/19/12) History of left breast cancer (~2008) Hyperlipidemia IBS (irritable bowel syndrome) Measles 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, bilateral Personal history of other malignant neoplasm of skin (02/19/12) 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 Dementia Slums assessment was performed earlier this hospitalization with a score of 13/30. This is consistent with dementia. She will need 24/7 supervision. She does not have capacity to make her own healthcare decisions. Her son has been difficult to contact and apparently they have been evicted from apartment. Patient will benefit from a memory care unit placement. 2. Atrial fibrillation, felt to be permanent ? Remains rate controlled.? Is on chronic apixaban. 3.? Coronary artery disease ? Uncertain as to her previous cardiac interventions.? Has a sternal scar from prior intervention (pt does not recall what was done).? Low risk nuc this admission. 4.? Chronic GERD ? Suspect this could be contributing to her chest pain.? It may be she has esoph ageal spasm that is responsive to nitroglycerin.? No symptoms reported today. 5. CHF ? Appears euvolemic presently. 6. Acute severe protein calorie malnutrition Patient has had a 7.5% weight loss over the last 3 months.? Oral nutritional supplementation as tolerated. Continue multivitamin Result issues: Chest pain, ruled out for myocardial infarction, low risk stress test ?Code status Full ?Prophylaxis On apixaban ?Disposition Await guardianship and placement Time Spent With Patient Critical Care time: I spent a total of [] minutes of critical care time on this patient's care today; this time is exclusive of procedural time. Quality VTE Deep Vein Thrombosis/Pulmonary Embolism Present on Admission: No
[2021-08-19] MEDS: TRAMADOL 50 MG TABLET PO ×2 (15:06→20:41)
[2021-08-19 18:00] VITALS: BP 103/51; PULSE 53; RESP 17; TEMP 36.3; O2SAT 97
[2021-08-19] MEDS: MIRTAZAPINE 15 MG TABLET 7.5 MG PO (20:13)
[2021-08-19] MEDS: ATORVASTATIN 20 MG TABLET 40 MG PO (20:13)
[2021-08-20] VITALS (10 sets, daily range): BP systolic 102–128; BP diastolic 40–68; PULSE 51–91; RESP 16–18; TEMP 36.1–36.5; O2SAT 94–98
--- NOTE | 2021-08-20 00:58 | PC.NURSE ---
At shift change patient curled up in recliner chair and asleep. Upon waking, patient complaining of generalized aching pain with severity of 6/10 and was medicated with Tramadol with resolution of pain. Patient seems more distressed tonight; wonders why son hasn't called or visited. Is oriented tonight except to day of week. Breath sounds CTA with RA sat of 94%. HR irregular but does have hx of afib. Denied nausea. BT present and had soft, formed stool. Denied any dysuria with urination and calls appropriately when needing to use bathroom. Is able to move herself in bed but is assisted out of bed with walker and 1 assist; seems weaker tonight. Has been refusing SCD's so reminded to ankle wave. Fall risk score is high and bed alarm is activated.
[2021-08-20 05:42] LABS: Add Manual Diff / Slide Review NO; Basophils Absolute Auto 0 /uL (0-100); Basophils Percent Auto 0.5 % (0-2); Eosinophils Absolute Auto 100 /uL (0-450); Eosinophils Percent Auto 1.7 % (2-4); Hematocrit 31.9 % (36-46); Hemoglobin 10.6 g/dL (12.0-16.0); Lymphocytes Absolute Auto 2100 /uL (1100-4500); Lymphocytes Percent Auto 30.2 % (25-40); Mean Corpuscular HGB Conc 33.4 % (30-36); Mean Corpuscular Hemoglobin 30.1 PG (26-34); Mean Corpuscular Volume 90.4 fL (80-100); Monocytes Absolute Auto 700 /uL (0-900); Monocytes Percent Auto 9.9 % (3-14); Neutrophils Absolute Auto 4000 /uL (1500-7000); Neutrophils Percent Auto 57.7 % (50-75); Platelet Count 243 X10^3/uL (150-400); Red Blood Cell Count 3.53 X10^6/uL (4.0-5.2); Red Cell Distribution Width 14.9 % (11.6-14.8); White Blood Cell Count 6.9 X10^3/uL (4.5-11.0)
[2021-08-20 05:49] LABS: BUN Creatinine Ratio 53.7 (6-22); Blood Urea Nitrogen 58 mg/dL (7-17); Calcium 8.6 mg/dL (8.4-10.2); Carbon Dioxide 29 mmol/L (22-32); Chloride 98 mmol/L (98-107); Estimated Glomerular Filt Rate 51 mL/min (>60); Glucose 89 mg/dL (80-110); HEMOLYSIS < 15 (0-50); Potassium 5.1 mmol/L (3.4-5.1); Sodium 134 mmol/L (137-145)
--- NOTE | 2021-08-20 07:24 | PM.PN.1 ---
Subjective Subjective Date Patient Seen: 08/19/21 Interval history: Patient sleepy but says the right side of her body hurts. No other complaints. Exam Vital Signs (past 8 hours): - 08/20/21 00:00 08/20/21 00:00 08/20/21 05:23 Temperature 97.4 F L 97.7 F Pulse Rate 72 51 L Respiratory Rate 18 18 Blood Pressure 122/55 L 118/68 Pulse Oximetry 94 94 97 Oxygen Delivery Method Room Air Oxygen Flow Rate 0 0 0 08/20/21 05:23 Temperature Pulse Rate Respiratory Rate Blood Pressure Pulse Oximetry 97 Oxygen Delivery Method Room Air Oxygen Flow Rate 0 Oxygen Delivery Method Room Air Oxygen Flow Rate 0 Narrative Exam Narrative: GEN: Drowsy elderly female, lying in the hospital room on bed, NAD HEENT:NC, Face symmetric CHEST: Respiratory excursions symmetric, CTAB CV: RRR, no M/R/G ABD: Soft, mildly diffusely tender, ND, BT present in all 4 quadrants, no organomegaly or masses EXTR: warm, well perfused, no C/C/E SKIN: warm and dry, no rash NEURO: Right facial droop and right-sided weakness from previous stroke Objective Labs Result Diagrams: 08/20/21 05:15 08/20/21 05:15 Labs: Laboratory Results - last 24 hr 08/20/21 08/20/21 05:15 05:15 WBC 6.9 RBC 3.53 L Hgb 10.6 L Hct 31.9 L MCV 90.4 MCH 30.1 MCHC 33.4 RDW 14.9 H Plt Count 243 Neut % (Auto) 57.7 Lymph % (Auto) 30.2 [place] % (Auto) 9.9 Eos % (Auto) 1.7 L Baso % (Auto) 0.5 Neut # (Auto) 4000 Lymph # (Auto) 2100 [place] # (Auto) 700 Eos # (Auto) 100 Baso # (Auto) 0 Sodium 134 L Potassium 5.1 Chloride 98 Carbon Dioxide 29 BUN 58 H Creatinine 1.08 H Estimated GFR 51 L BUN/Creatinine Ratio 53.7 H Glucose 89 Calcium 8.6 PFSH Medical History Abdominal pain Acute pancreatitis Anticoagulated Anxiety 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) Asthma Breast cancer (~2001) CAD (coronary artery disease) Calcified nodule Cerebrovascular accident (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 right middle cerebral artery (04/27/17) Cervical cancer, FIGO stage I Cholelithiasis Chronic back pain Depression (emotion) Developmental disorder Diarrhea Essential hypertension (02/19/12) Failure to thrive in adult Fibrocystic breast disease GERD (gastroesophageal reflux disease) History of colon polyps (02/19/12) History of left breast cancer (~2008) Hyperlipidemia IBS (irritable bowel syndrome) Measles 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, bilateral Personal history of other malignant neoplasm of skin (02/19/12) 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 Dementia Slums assessment was performed earlier this hospitalization with a score of 13/30. This is consistent with dementia. She will need 24/7 supervision. She does not have capacity to make her own healthcare decisions. Her son has been difficult to contact and apparently they have been evicted from apartment. Patient will benefit from a memory care unit placement and GOVERNMENT OPERATIONS CONSULTANT working on this. 2. Atrial fibrillation, felt to be permanent ? Remains rate controlled.? Is on chronic apixaban. 3.? Coronary artery disease ? Uncertain as to her previous cardiac interventions.? Has a sternal scar from prior intervention (pt does not recall what was done).? Low risk nuc this admission. 4.? Chronic GERD ? Suspect this could be contributing to her chest pain.? It may be she has esophageal spasm that is responsive to nitroglycerin.? No symptoms reported today. Start PPI. 5. CHF ? Appears euvolemic presently. 6. Acute severe protein calorie malnutrition Patient has had a 7.5% weight loss over the last 3 months.? Oral nutritional supplementation as tolerated. Continue multivitamin Result issues: Chest pain, ruled out for myocardial infarction, low risk stress test ?Code status Full ?Prophylaxis On apixaban ?Disposition Await guardianship and placement Time Spent With Patient Critical Care time: I spent a total of [] minutes of critical care time on this patient's care today; this time is exclusive of procedural time. Quality VTE Deep Vein Thrombosis/Pulmonary Embolism Present on Admission: No
[2021-08-20] MEDS: CALCIUM CARBONATE 600 MG TABLET PO (09:23)
[2021-08-20] MEDS: METOPROLOL IR 25 MG TABLET 12.5 MG PO (09:23)
[2021-08-20] MEDS: LOSARTAN 50 MG TABLET PO (09:23)
[2021-08-20] MEDS: MULTIVITAMIN 1 TABLET 1 TAB PO (09:23)
[2021-08-20] MEDS: APIXABAN 5 MG TABLET PO ×2 (09:23→20:13)
[2021-08-20] MEDS: PANTOPRAZOLE DR 40 MG TABLET PO (09:23)
[2021-08-20] MEDS: CHOLECALCIFEROL (VITAMIN D3) 1,000 UNIT TABLET 1000 UNIT PO (09:23)
[2021-08-20] MEDS: GABAPENTIN 300 MG CAPSULE PO ×3 (09:23→20:13)
[2021-08-20] MEDS: HYDROCODONE/ACET 5/325 TABLET 1 TAB PO ×2 (14:21→20:13)
--- NOTE | 2021-08-20 15:19 | CM.DPC ---
Discharge planning note: Marilu from [facility] ([phone]) called to say that they have an opening for this patient and are inquiring about the Medicaid daily rate status. We referred her to BREA Guzman at [facility] who is assigned to this case. Marilu called Megan and she is going to be assessing patient tomorrow 08/21. Marilu requesting us to please stay in touch with her closely as to how things are moving along. P: Keep Marilu at [facility] updated re [facility] application finalizing. Ale Bonilla RN/DCP
[2021-08-20] MEDS: MIRTAZAPINE 15 MG TABLET 7.5 MG PO (20:13)
[2021-08-20] MEDS: ATORVASTATIN 20 MG TABLET 40 MG PO (20:13)
[2021-08-21] VITALS (9 sets, daily range): BP systolic 120–145; BP diastolic 49–85; PULSE 64–88; RESP 16–18; TEMP 35.8–36.4; O2SAT 93–99
[2021-08-21 06:11] LABS: Add Manual Diff / Slide Review NO; Basophils Absolute Auto 0 /uL (0-100); Basophils Percent Auto 0.5 % (0-2); Eosinophils Absolute Auto 100 /uL (0-450); Eosinophils Percent Auto 2.5 % (2-4); Hematocrit 31.9 % (36-46); Hemoglobin 10.5 g/dL (12.0-16.0); Lymphocytes Absolute Auto 2200 /uL (1100-4500); Lymphocytes Percent Auto 41.5 % (25-40); Mean Corpuscular HGB Conc 33.1 % (30-36); Mean Corpuscular Volume 90.8 fL (80-100); Monocytes Absolute Auto 600 /uL (0-900); Monocytes Percent Auto 11.3 % (3-14); Neutrophils Absolute Auto 2300 /uL (1500-7000); Neutrophils Percent Auto 44.2 % (50-75); Platelet Count 228 X10^3/uL (150-400); Red Blood Cell Count 3.51 X10^6/uL (4.0-5.2); Red Cell Distribution Width 15.2 % (11.6-14.8); White Blood Cell Count 5.3 X10^3/uL (4.5-11.0)
[2021-08-21 06:27] LABS: BUN Creatinine Ratio 62.9 (6-22); Blood Urea Nitrogen 61 mg/dL (7-17); Calcium 8.3 mg/dL (8.4-10.2); Carbon Dioxide 29 mmol/L (22-32); Chloride 97 mmol/L (98-107); Estimated Glomerular Filt Rate 58 mL/min (>60); Glucose 78 mg/dL (80-110); HEMOLYSIS < 15 (0-50); Potassium 5.1 mmol/L (3.4-5.1); Sodium 131 mmol/L (137-145)
[2021-08-21] MEDS: CHOLECALCIFEROL (VITAMIN D3) 1,000 UNIT TABLET 1000 UNIT PO (09:08)
[2021-08-21] MEDS: LOSARTAN 50 MG TABLET PO (09:08)
[2021-08-21] MEDS: PANTOPRAZOLE DR 40 MG TABLET PO (09:08)
[2021-08-21] MEDS: CALCIUM CARBONATE 600 MG TABLET PO (09:08)
[2021-08-21] MEDS: GABAPENTIN 300 MG CAPSULE PO ×3 (09:08→20:47)
[2021-08-21] MEDS: METOPROLOL IR 25 MG TABLET 12.5 MG PO (09:09)
[2021-08-21] MEDS: MULTIVITAMIN 1 TABLET 1 TAB PO (09:09)
[2021-08-21] MEDS: APIXABAN 5 MG TABLET PO ×2 (09:09→20:47)
[2021-08-21] MEDS: ACETAMINOPHEN 325 MG TABLET 650 MG PO (11:32)
--- NOTE | 2021-08-21 14:21 | PM.PN.1 ---
Subjective Subjective Date Patient Seen: 08/21/21 Interval history: 86-year-old female with known coronary artery disease, permanent atrial fibrillation on apixaban, history of congestive heart failure ( unknown if systolic or diastolic), hypertension, hyperlipidemia, and prior stroke who was admitted with chest pain.? Patient underwent stress testing and had a low risk scan.? She was approved for discharge on August 08, but staff could not get her son on the phone who is her POA.? She remained in the hospital pending his ability to take her home.? APS referral was made August 08 in light of ongoing caregiving concerns and is now pending guardianship. Exam Vital Signs (past 8 hours): - 08/21/21 07:32 08/21/21 09:08 08/21/21 13:18 Temperature 97.3 F L 97.5 F L Pulse Rate 67 88 Respiratory Rate 16 16 Blood Pressure 130/53 L 130/53 L 120/49 L Pulse Oximetry 99 93 Oxygen Delivery Method 08/21/21 11:00 Temperature Pulse Rate Respiratory Rate Blood Pressure Pulse Oximetry 95 Oxygen Delivery Method Room Air Oxygen Delivery Method Room Air Oxygen Flow Rate 0 Narrative Exam Narrative: GEN: Drowsy elderly female, lying in the hospital room on bed, NAD HEENT:NC, Face symmetric CHEST: Respiratory excursions symmetric, CTAB CV: RRR, no M/R/G ABD: Soft, mildly diffusely tender, ND, BT present in all 4 quadrants, no organomegaly or masses EXTR: warm, well perfused, no C/C/E SKIN: warm and dry, no rash NEURO: Right facial droop and right-sided weakness from previous stroke Objective Labs Result Diagrams: 08/21/21 05:50 08/21/21 05:50 Labs: Laboratory Results - last 24 hr 08/21/21 08/21/21 05:50 05:50 WBC 5.3 RBC 3.51 L Hgb 10.5 L Hct 31.9 L MCV 90.8 MCH 30.0 MCHC 33.1 RDW 15.2 H Plt Count 228 Neut % (Auto) 44.2 L Lymph % (Auto) 41.5 H [place] % (Auto) 11.3 Eos % (Auto) 2.5 Baso % (Auto) 0.5 Neut # (Auto) 2300 Lymph # (Auto) 2200 [place] # (Auto) 600 Eos # (Auto) 100 Baso # (Auto) 0 Sodium 131 L Potassium 5.1 Chloride 97 L Carbon Dioxide 29 BUN 61 H Creatinine 0.97 Estimated GFR 58 L BUN/Creatinine Ratio 62.9 H Glucose 78 L Calcium 8.3 L [facility] Medical History Abdominal pain Acute pancreatitis Anticoagulated Anxiety 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) Asthma Breast cancer (~2001) CAD (coronary artery disease) Calcified nodule Cerebrovascular accident (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 right middle cerebral artery (04/27/17) Cervical cancer, FIGO stage I Cholelithiasis Chronic back pain Depression (emotion) Developmental disorder Diarrhea Essential hypertension (02/19/12) Failure to thrive in adult Fibrocystic breast disease GERD (gastroesophageal reflux disease) History of colon polyps (02/19/12) History of left breast cancer (~2008) Hyperlipidemia IBS (irritable bowel syndrome) Measles 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, bilateral Personal history of other malignant neoplasm of skin (02/19/12) 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 Dementia Slums assessment was performed earlier this hospitalization with a score of 13/30. This is consistent with dementia. She will need 24/7 supervision. She does not have capacity to make her own healthcare decisions. Her son has been difficult to contact and apparently they have been evicted from apartment. Currently pending placement. 2. Atrial fibrillation, felt to be permanent ? Remains rate controlled.? Is on chronic apixaban. 3.? Coronary artery disease ? Uncertain as to her previous cardiac interventions.? Has a sternal scar from prior intervention (pt does not recall what was done).? Low risk nuc this admission. 4.? Chronic GERD ? Suspect this could be contributing to her chest pain.? It may be she has esophageal spasm that is responsive to nitroglycerin.? No symptoms reported today. Start PPI. 5. CHF ? Appears euvolemic presently. 6. Acute severe protein calorie malnutrition Patient has had a 7.5% weight loss over the last 3 months.? Oral nutritional supplementation as tolerated. Continue multivitamin Result issues: Chest pain, ruled out for myocardial infarction, low risk stress test ?Code status Full ?Prophylaxis On apixaban ?Disposition Await guardianship and placement Time Spent With Patient Critical Care time: I spent a total of [] minutes of critical care time on this patient's care today; this time is exclusive of procedural time. Quality VTE Deep Vein Thrombosis/Pulmonary Embolism Present on Admission: No
--- NOTE | 2021-08-21 14:48 | CM.DPNOTE ---
Faxed clinicals to [facility] at [phone]. Liz Tomlin CM Assist.
--- NOTE | 2021-08-21 15:49 | PC.NURSE ---
Pt napping at intervals Tearful at times, worried about her wallet & son. SpO2 98% RA Sat in chair for some time today Call light w/in reach, bed alarm on for pt safety. Continue w/plan of care.
[2021-08-21] MEDS: HYDROCODONE/ACET 5/325 TABLET 1 TAB PO ×2 (18:02→22:33)
[2021-08-21] MEDS: ATORVASTATIN 20 MG TABLET 40 MG PO (20:47)
[2021-08-21] MEDS: MIRTAZAPINE 15 MG TABLET 7.5 MG PO (20:48)
[2021-08-22] VITALS (7 sets, daily range): BP systolic 103–153; BP diastolic 53–74; PULSE 54–77; RESP 16–18; TEMP 36.1–36.7; O2SAT 94–96
[2021-08-22] MEDS: CHOLECALCIFEROL (VITAMIN D3) 1,000 UNIT TABLET 1000 UNIT PO (09:43)
[2021-08-22] MEDS: METOPROLOL IR 25 MG TABLET 12.5 MG PO (09:43)
[2021-08-22] MEDS: PANTOPRAZOLE DR 40 MG TABLET PO (09:43)
[2021-08-22] MEDS: GABAPENTIN 300 MG CAPSULE PO ×3 (09:43→19:58)
[2021-08-22] MEDS: MULTIVITAMIN 1 TABLET 1 TAB PO (09:43)
[2021-08-22] MEDS: CALCIUM CARBONATE 600 MG TABLET PO (09:45)
[2021-08-22] MEDS: APIXABAN 5 MG TABLET PO ×2 (09:53→19:58)
[2021-08-22] MEDS: HYDROCODONE/ACET 5/325 TABLET 1 TAB PO ×3 (10:47→20:21)
--- NOTE | 2021-08-22 13:28 | PC.NURSE ---
Addendum entered by Rosie Mccord R.N. 08/22/21 15:48: Spoke w/ [employer] case hardener from [place] to answer questions re: ADLS Original Note: Pt resting at intervals. Awakens easily. Med w/ norco @ 1045 for 7/10 discomfort in legs. Sitting in chair this afternoon. Call light w/in reach, chair alarm on for pt safety. Continue w/plan of care.
--- NOTE | 2021-08-22 15:37 | P.PN_ITS ---
Subjective Subjective Date Patient Seen: 08/22/21 Interval history: 86-year-old female with known coronary artery disease, permanent atrial fibrillation on apixaban, history of congestive heart failure ( unknown if systolic or diastolic), hypertension, hyperlipidemia, and prior stroke who was admitted with chest pain.? Patient underwent stress testing and had a low risk scan.? She was approved for discharge on August 08, but staff could not get her son on the phone who is her POA.? She remained in the hospital pending his ability to take her home.? APS referral was made August 08 in light of ongoing caregiving concerns and is now pending guardianship. Exam Vital Signs (past 8 hours): - 08/22/21 09:53 08/22/21 11:00 08/22/21 12:00 Temperature 97.2 F L Pulse Rate 75 Respiratory Rate 16 Blood Pressure 103/58 L 108/73 Pulse Oximetry 96 96 Oxygen Delivery Method Room Air Oxygen Flow Rate 0 Oxygen Delivery Method Room Air Oxygen Flow Rate 0 Narrative Exam Narrative: GEN: Drowsy elderly female, lying in the hospital room on bed, NAD HEENT:NC, Face symmetric CHEST: Respiratory excursions symmetric, CTAB CV: RRR, no M/R/G ABD: Soft, mildly diffusely tender, ND, BT present in all 4 quadrants, no organomegaly or masses EXTR: warm, well perfused, no C/C/E SKIN: warm and dry, no rash NEURO: Right facial droop and right-sided weakness from previous stroke Objective Labs Result Diagrams: 08/21/21 05:50 08/21/21 05:50 [facility] Medical History Abdominal pain Acute pancreatitis Anticoagulated Anxiety 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) Asthma Breast cancer (~2001) CAD (coronary artery disease) Calcified nodule Cerebrovascular accident (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 right middle cerebral artery (04/27/17) Cervical cancer, FIGO stage I Cholelithiasis Chronic back pain Depression (emotion) Developmental disorder Diarrhea Essential hypertension (02/19/12) Failure to thrive in adult Fibrocystic breast disease GERD (gastroesophageal reflux disease) History of colon polyps (02/19/12) History of left breast cancer (~2008) Hyperlipidemia IBS (irritable bowel syndrome) Measles 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, bilateral Personal history of other malignant neoplasm of skin (02/19/12) 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 Dementia Slums assessment was performed earlier this hospitalization with a score of 13/30. This is consistent with dementia. She will need 24/7 supervision. She does not have capacity to make her own healthcare decisions. Her son has been difficult to contact and apparently they have been evicted from apartment. Currently pending placement. 2. Atrial fibrillation, felt to be permanent ? Remains rate controlled.? Is on chronic apixaban. 3.? Coronary artery disease ? Uncertain as to her previous cardiac interventions.? Has a sternal scar from prior intervention (pt does not recall what was done).? Low risk nuc this admission. 4.? Chronic GERD ? Suspect this could be contributing to her chest pain.? It may be she has esophageal spasm that is responsive to nitroglycerin.? No symptoms reported today. Start PPI. 5. CHF ? Appears euvolemic presently. 6. Acute severe protein calorie malnutrition Patient has had a 7.5% weight loss over the last 3 months.? Oral nutritional supplementation as tolerated. Continue multivitamin Result issues: Chest pain, ruled out for myocardial infarction, low risk stress test ?Code status Full ?Prophylaxis On apixaban ?Disposition Await guardianship and placement Time Spent With Patient Critical Care time: I spent a total of [] minutes of critical care time on this patient's care today; this time is exclusive of procedural time. Quality VTE Deep Vein Thrombosis/Pulmonary Embolism Present on Admission: No
--- NOTE | 2021-08-22 15:37 | CM.DPNOTE ---
DCP Note [facility] social service technician Lorraine has begun assessment, speaking with her at length yesterday and today- Lorraine anticipates rate will be $104.70 Re completion or finalization of this assessment- Lorraine refers this DIRECTOR PROCESS IMPROVEMENT to Emi Emery, [facility] Adding Machine Servicer P# [phone] office P# [phone], attempted communication multiple times today and have not connected yet. According to Lorraine, assessment cannot be finalized ie placement efforts begin until patient has a DPOA, guardian, payee etc and CM team will need to speak w/Adding Machine Servicer Emi to review further Left multiple messages today for APS assigned social service technician Anya Palomino (Ph. # [phone]) Meanwhile, Marilu at [facility] in [place] P# [phone] has a [facility] bed available and is interested in patient, reviewed expected rate and Marilu suggests this team keep her in mind when assessment is finalized. Following closely. Attempting coordination between this CM team, [facility] Adding Machine Servicer and APS social service technician. Rolanda Colin, JOSHUA
[2021-08-22] MEDS: MIRTAZAPINE 15 MG TABLET 7.5 MG PO (19:58)
[2021-08-22] MEDS: ATORVASTATIN 20 MG TABLET 40 MG PO (19:58)
[2021-08-23] VITALS (10 sets, daily range): BP systolic 116–135; BP diastolic 62–69; PULSE 64–75; RESP 16–18; TEMP 35.9–36.4; O2SAT 94–97
--- NOTE | 2021-08-23 07:54 | DIET.CONS2 ---
Dietary Inpatient Consultation Note Admission Date: 08/08/2021 02:55 RD screening pt for LOS day 15. Pt awaiting placement and guardianship. Pt doing well nutritionally on Heart Healthy diet with ONS Ensure bid to support low body weight for age. Pt consuming 75-100% POs at meals with better food quality of life in hospital vs previous home environment where she would eat 1/2 hamburger daily. Diet: 08/09/21 Dinner Heart Healthy Diet Diet Modifications: Easy chew ; vanilla ensure twice per day Sodium Level: 2 gm Sodium Nutrition Percent Meal Consumed 75% 08/22/21 19:00 Percent Meal Consumed 100% 08/22/21 17:33 Percent Meal Consumed 100% 08/22/21 12:18 Percent Meal Consumed 90 08/22/21 09:03 Percent Meal Consumed 50% 08/21/21 18:09 Percent Meal Consumed 100% 08/21/21 08:00 Electronically Signed by: Janette Horta 08/23/21 07:54 Clinical Dietitian [address] [address]
[2021-08-23] MEDS: PANTOPRAZOLE DR 40 MG TABLET PO (09:22)
[2021-08-23] MEDS: MULTIVITAMIN 1 TABLET 1 TAB PO (09:22)
[2021-08-23] MEDS: CHOLECALCIFEROL (VITAMIN D3) 1,000 UNIT TABLET 1000 UNIT PO (09:22)
[2021-08-23] MEDS: GABAPENTIN 300 MG CAPSULE PO ×2 (09:22→22:33)
[2021-08-23] MEDS: LOSARTAN 50 MG TABLET PO (09:22)
[2021-08-23] MEDS: METOPROLOL IR 25 MG TABLET 12.5 MG PO (09:23)
[2021-08-23] MEDS: APIXABAN 5 MG TABLET PO ×2 (09:23→22:33)
[2021-08-23] MEDS: CALCIUM CARBONATE 600 MG TABLET PO (09:27)
[2021-08-23] MEDS: ACETAMINOPHEN 325 MG TABLET 650 MG PO (12:30)
--- NOTE | 2021-08-23 16:05 | P.PN_ITS ---
Exam Vital Signs (past 8 hours): - 08/23/21 08:50 08/23/21 09:22 08/23/21 12:00 Temperature 97.3 F L Pulse Rate 64 67 Respiratory Rate 18 Blood Pressure 135/67 135/69 Pulse Oximetry 97 95 Oxygen Delivery Method Room Air Oxygen Flow Rate 0 Oxygen Delivery Method Room Air Oxygen Flow Rate 0 Narrative Exam Narrative: GEN: Drowsy elderly female, lying in the hospital room on bed, NAD HEENT:NC, Face symmetric CHEST: Respiratory excursions symmetric, CTAB CV: RRR, no M/R/G ABD: Soft, mildly diffusely tender, ND, BT present in all 4 quadrants, no organomegaly or masses EXTR: warm, well perfused, no C/C/E SKIN: warm and dry, no rash NEURO: Right facial droop and right-sided weakness from previous stroke Objective Labs Result Diagrams: 08/21/21 05:50 08/21/21 05:50 [facility] Medical History Abdominal pain Acute pancreatitis Anticoagulated Anxiety 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) Asthma Breast cancer (~2001) CAD (coronary artery disease) Calcified nodule Cerebrovascular accident (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 right middle cerebral artery (04/27/17) Cervical cancer, FIGO stage I Cholelithiasis Chronic back pain Depression (emotion) Developmental disorder Diarrhea Essential hypertension (02/19/12) Failure to thrive in adult Fibrocystic breast disease GERD (gastroesophageal reflux disease) History of colon polyps (02/19/12) History of left breast cancer (~2008) Hyperlipidemia IBS (irritable bowel syndrome) Measles 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, bilateral Personal history of other malignant neoplasm of skin (02/19/12) 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 Dementia Slums assessment was performed earlier this hospitalization with a score of 13/30. This is consistent with dementia. She will need 24/ supervision. She does not have capacity to make her own healthcare decisions. Her son has been difficult to contact and apparently they have been evicted from apartment. Currently pending placement. 2. Atrial fibrillation, felt to be permanent ? Remains rate controlled.? Is on chronic apixaban. 3.? Coronary artery disease ? Uncertain as to her previous cardiac interventions.? Has a sternal scar from prior intervention (pt does not recall what was done).? Low risk nuc this admission. 4.? Chronic GERD ? Suspect this could be contributing to her chest pain.? It may be she has esophageal spasm that is responsive to nitroglycerin.? No symptoms reported today. Start PPI. 5. CHF ? Appears euvolemic presently. 6. Acute severe protein calorie malnutrition Patient has had a 7.5% weight loss over the last 3 months.? Oral nutritional supplementation as tolerated. Continue multivitamin Result issues: Chest pain, ruled out for myocardial infarction, low risk stress test ?Code status Full ?Prophylaxis On apixaban ?Disposition Await guardianship and placement Time Spent With Patient Critical Care time: I spent a total of [] minutes of critical care time on this patient's care today; this time is exclusive of procedural time. Quality VTE Deep Vein Thrombosis/Pulmonary Embolism Present on Admission: No
[2021-08-23] MEDS: MIRTAZAPINE 15 MG TABLET 7.5 MG PO (22:33)
[2021-08-23] MEDS: ATORVASTATIN 20 MG TABLET 40 MG PO (22:33)
[2021-08-24 05:00] VITALS: O2SAT 100
--- NOTE | 2021-08-24 05:16 | PC.NURSE ---
Patient slept most of the shift. Confused but calm & cooperative.
[2021-08-24] MEDS: CALCIUM CARBONATE 600 MG TABLET PO (08:33)
[2021-08-24] MEDS: METOPROLOL IR 25 MG TABLET 12.5 MG PO (08:33)
[2021-08-24 08:34] VITALS: BP 151/67; PULSE 84
[2021-08-24] MEDS: LOSARTAN 50 MG TABLET PO (08:34)
[2021-08-24] MEDS: CHOLECALCIFEROL (VITAMIN D3) 1,000 UNIT TABLET 1000 UNIT PO (08:34)
[2021-08-24] MEDS: PANTOPRAZOLE DR 40 MG TABLET PO (08:34)
[2021-08-24] MEDS: GABAPENTIN 300 MG CAPSULE PO ×3 (08:34→21:42)
[2021-08-24] MEDS: MULTIVITAMIN 1 TABLET 1 TAB PO (08:34)
[2021-08-24] MEDS: APIXABAN 5 MG TABLET PO ×2 (08:34→21:41)
[2021-08-24 09:00] VITALS: BP 151/67; PULSE 67; RESP 18; O2SAT 100
[2021-08-24] MEDS: HYDROCODONE/ACET 5/325 TABLET 1 TAB PO ×2 (10:46→21:51)
[2021-08-24 11:24] VITALS: BP 95/52; PULSE 67; RESP 18; TEMP 36.7; O2SAT 98
--- NOTE | 2021-08-24 13:07 | P.PN_ITS ---
Subjective Subjective Date Patient Seen: 08/24/21 Interval history: 86-year-old female with known coronary artery disease, permanent atrial fibrillation on apixaban, history of congestive heart failure , hypertension, hyperlipidemia, and prior stroke who was admitted with chest pain.? Patient underwent stress testing and had a low risk scan.? She was approved for discharge on August 08, but staff could not get her son on the phone who is her POA.? She remained in the hospital pending his ability to take her home.? APS referral was made August 08 in light of ongoing caregiving concerns and is now pending guardianship. Exam Vital Signs (past 8 hours): - 08/24/21 08:34 08/24/21 09:00 08/24/21 07:00 Temperature Pulse Rate 84 67 Respiratory Rate 18 Blood Pressure 151/67 H 151/67 H Pulse Oximetry 100 Oxygen Delivery Method Room Air Oxygen Flow Rate 0 08/24/21 11:00 08/24/21 11:24 Temperature 98.1 F Pulse Rate 67 Respiratory Rate 18 Blood Pressure 95/52 L Pulse Oximetry 98 Oxygen Delivery Method Room Air Oxygen Flow Rate 0 Oxygen Delivery Method Room Air Oxygen Flow Rate 0 Narrative Exam Narrative: GEN: Drowsy elderly female, lying in the hospital room on bed, NAD HEENT:NC, Face symmetric CHEST: Respiratory excursions symmetric, CTAB CV: RRR, no M/R/G ABD: Soft, NT ND EXTR: warm, well perfused, no C/C/E SKIN: warm and dry, no rash NEURO: Right facial droop and right-sided weakness from previous stroke Objective Labs Result Diagrams: 08/21/21 05:50 08/21/21 05:50 [facility] Medical History Abdominal pain Acute pancreatitis Anticoagulated Anxiety 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) Asthma Breast cancer (~2001) CAD (coronary artery disease) Calcified nodule Cerebrovascular accident (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 right middle cerebral artery (04/27/17) Cervical cancer, FIGO stage I Cholelithiasis Chronic back pain Depression (emotion) Developmental disorder Diarrhea Essential hypertension (02/19/12) Failure to thrive in adult Fibrocystic breast disease GERD (gastroesophageal reflux disease) History of colon polyps (02/19/12) History of left breast cancer (~2008) Hyperlipidemia IBS (irritable bowel syndrome) Measles 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, bilateral Personal history of other malignant neoplasm of skin (02/19/12) 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 Dementia Slums assessment was performed earlier this hospitalization with a score of 13/30. This is consistent with dementia. She will need / supervision. She does not have capacity to make her own healthcare decisions. Her son has been difficult to contact and apparently they have been evicted from apartment. Currently pending placement. 2. Atrial fibrillation, felt to be permanent ? Remains rate controlled.? Is on chronic apixaban. 3.? Coronary artery disease ? Uncertain as to her previous cardiac interventions.? Has a sternal scar from prior intervention (pt does not recall what was done).? Low risk nuc this admission. 4.? Chronic GERD ? Suspect this could be contributing to her chest pain.? It may be she has esophageal spasm that is responsive to nitroglycerin.? No symptoms reported today. Start PPI. 5. CHFrEF ? Appears euvolemic presently. Patient is on ARB and beta susan therapy. Reduce losartan, low normal BP today. 6. Acute severe protein calorie malnutrition Patient has had a 7.5% weight loss over the last 3 months.? Oral nutritional supplementation as tolerated. Continue multivitamin Result issues: Chest pain, ruled out for myocardial infarction, low risk stress test ?Code status Full ?Prophylaxis On apixaban ?Disposition Await guardianship and placement Time Spent With Patient Critical Care time: I spent a total of [] minutes of critical care time on this patient's care today; this time is exclusive of procedural time. Quality VTE Deep Vein Thrombosis/Pulmonary Embolism Present on Admission: No
--- NOTE | 2021-08-24 14:03 | CM.DPNOTE ---
Discharge Planning note: Nurse notified this DCP that patient's son in the room for visit. Met with patient and son. Patient is quiet and does not say anything. Let the son Heath know that we are looking for placement for his mother to [facility] and awaiting [facility]. He is amenable to this. Asked about contacting him and he states his phone doesn't work and he has a hard time borrowing anyone's. He is somewhat unkempt but overall communicative. Instructed that if he is wanting to talk to his mom or nurse he can call [facility]. Ale Bonilla RN/DCP
--- NOTE | 2021-08-24 18:10 | PC.NURSE ---
Pt is AxOx2-3, pleasant and cooperative. VSS, pt c/o general pain once today around 1040 and received PRN [place] once with good effect. Otherwise, pt is eating well and sleeping between care. Pt's son came today and visited her. Pt was very happy and had lunch with him. Otherwise, no change. Continue monitor.
[2021-08-24 21:18] VITALS: BP 123/87; PULSE 91; RESP 17; TEMP 36.6; O2SAT 96
[2021-08-24] MEDS: MIRTAZAPINE 15 MG TABLET 7.5 MG PO (21:41)
[2021-08-24] MEDS: ATORVASTATIN 20 MG TABLET 40 MG PO (21:42)
[2021-08-24 23:00] VITALS: O2SAT 96
--- NOTE | 2021-08-25 08:44 | P.PN_ITS ---
Subjective Subjective Date Patient Seen: 08/25/21 Interval history: 86-year-old female with known coronary artery disease, permanent atrial fibrillation on apixaban, history of congestive heart failure , hypertension, hyperlipidemia, and prior stroke who was admitted with chest pain.? Patient underwent stress testing and had a low risk scan.? She was approved for discharge on August 08, but staff could not get her son on the phone who is her POA.? She remained in the hospital pending his ability to take her home.? APS referral was made August 08 in light of ongoing caregiving concerns Exam Vital Signs (past 8 hours): Oxygen Delivery Method Room Air Oxygen Flow Rate 0 Narrative Exam Narrative: GEN: Drowsy elderly female, lying in the hospital room on bed, NAD HEENT:NC, Face symmetric CHEST: Respiratory excursions symmetric, CTAB CV: RRR, no M/R/G ABD: Soft, NT ND EXTR: warm, well perfused, no C/C/E SKIN: warm and dry, no rash NEURO: Right facial droop and right-sided weakness from previous stroke Objective Labs Result Diagrams: 08/21/21 05:50 08/21/21 05:50 [facility] Medical History Abdominal pain Acute pancreatitis Anticoagulated Anxiety 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) Asthma Breast cancer (~2001) CAD (coronary artery disease) Calcified nodule Cerebrovascular accident (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 right middle cerebral artery (04/27/17) Cervical cancer, FIGO stage I Cholelithiasis Chronic back pain Depression (emotion) Developmental disorder Diarrhea Essential hypertension (02/19/12) Failure to thrive in adult Fibrocystic breast disease GERD (gastroesophageal reflux disease) History of colon polyps (02/19/12) History of left breast cancer (~2008) Hyperlipidemia IBS (irritable bowel syndrome) Measles 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, bilateral Personal history of other malignant neoplasm of skin (02/19/12) 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 Dementia Slums assessment was performed earlier this hospitalization with a score of 13/30. This is consistent with dementia. She will need 08/09 supervision. She does not have capacity to make her own healthcare decisions. Her son has been difficult to contact and apparently they have been evicted from apartment. Currently pending placement. 2. Atrial fibrillation, felt to be permanent ? Remains rate controlled.? Is on chronic apixaban. 3.? Coronary artery disease ? Uncertain as to her previous cardiac interventions.? Has a sternal scar from prior intervention (pt does not recall what was done).? Low risk nuc this admission. 4.? Chronic GERD ? Suspect this could be contributing to her chest pain.? It may be she has esophageal spasm that is responsive to nitroglycerin.? No symptoms reported today. Started PPI. 5. CHFrEF ? Appears euvolemic presently. Patient is on ARB and beta susan therapy. Reduced losartan, with improved BP today. 6. Acute severe protein calorie malnutrition Patient has had a 7.5% weight loss over the last 3 months.? Oral nutritional supplementation as tolerated. Continue multivitamin Result issues: Chest pain, ruled out for myocardial infarction, low risk stress test ?Code status Full ?Prophylaxis On apixaban ?Disposition: pending placement Time Spent With Patient Critical Care time: I spent a total of [] minutes of critical care time on this patient's care today; this time is exclusive of procedural time. Quality VTE Deep Vein Thrombosis/Pulmonary Embolism Present on Admission: No
--- NOTE | 2021-08-25 08:52 | CM.DPNOTE ---
DCP Note Faxed updated clinical to Emi Emery, [facility] [employer] Researcher, per emailed request on the afternoon of 08.23.21. Son Heath here visiting this weekend. Placed call to Heath today, had to LM. Does son Heath have access to patient's finances? Still needs clarification; have not heard back from APS presently. Patient states her son has managed everything for her for years. Can son Heath act as DPOA for medical decisions? Have not heard he cannot from APS Patient has cognitive decline and noted memory loss, however, per RN notes and this LINING MAKER's experience during interactions w/patient this week: Patient understands her need for care, and asks appropriate questions about placement process, patient signed consent forms with this LINING MAKER this week to initiate services from [facility]. SERENA
[2021-08-25] MEDS: GABAPENTIN 300 MG CAPSULE PO ×3 (09:52→21:15)
[2021-08-25] MEDS: METOPROLOL IR 25 MG TABLET 12.5 MG PO (09:52)
[2021-08-25] MEDS: CHOLECALCIFEROL (VITAMIN D3) 1,000 UNIT TABLET 1000 UNIT PO (09:52)
[2021-08-25] MEDS: ACETAMINOPHEN 325 MG TABLET 650 MG PO ×2 (09:52→20:02)
[2021-08-25] MEDS: CALCIUM CARBONATE 600 MG TABLET PO (09:52)
[2021-08-25 09:53] VITALS: BP 123/87; PULSE 96
[2021-08-25] MEDS: LOSARTAN 50 MG TABLET 25 MG PO (09:53)
[2021-08-25] MEDS: MULTIVITAMIN 1 TABLET 1 TAB PO (09:53)
[2021-08-25] MEDS: APIXABAN 5 MG TABLET PO ×2 (09:53→21:15)
[2021-08-25] MEDS: PANTOPRAZOLE DR 40 MG TABLET PO (09:53)
[2021-08-25 10:40] VITALS: BP 126/59; PULSE 66; RESP 16; O2SAT 94
--- NOTE | 2021-08-25 12:33 | P.PN_ITS ---
Subjective Subjective Date Patient Seen: 08/25/21 Interval history: 86-year-old female with known coronary artery disease, permanent atrial fibrillation on apixaban, history of congestive heart failure , hypertension, hyperlipidemia, and prior stroke who was admitted with chest pain.? Patient underwent stress testing and had a low risk scan.? She was approved for discharge on August 08, but staff could not get her son on the phone who is her POA.? She remained in the hospital pending his ability to take her home.? APS referral was made August 08 in light of ongoing caregiving concerns. She is currently pending placement. Exam Vital Signs (past 8 hours): - 08/25/21 09:53 08/25/21 10:40 Pulse Rate 96 H 66 Respiratory Rate 16 Blood Pressure 123/87 126/59 L Pulse Oximetry 94 Oxygen Flow Rate 0 Oxygen Delivery Method Room Air Oxygen Flow Rate 0 Narrative Exam Narrative: GEN: Drowsy elderly female, lying in the hospital room on bed, NAD HEENT:NC, Face symmetric CHEST: Respiratory excursions symmetric, CTAB CV: RRR, no M/R/G ABD: Soft, NT ND EXTR: warm, well perfused, no C/C/E SKIN: warm and dry, no rash NEURO: Right facial droop and right-sided weakness from previous stroke Objective Labs Result Diagrams: 08/21/21 05:50 08/21/21 05:50 [facility] Medical History Abdominal pain Acute pancreatitis Anticoagulated Anxiety 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) Asthma Breast cancer (~2001) CAD (coronary artery disease) Calcified nodule Cerebrovascular accident (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 right middle cerebral artery (04/27/17) Cervical cancer, FIGO stage I Cholelithiasis Chronic back pain Depression (emotion) Developmental disorder Diarrhea Essential hypertension (02/19/12) Failure to thrive in adult Fibrocystic breast disease GERD (gastroesophageal reflux disease) History of colon polyps (02/19/12) History of left breast cancer (~2008) Hyperlipidemia IBS (irritable bowel syndrome) Measles 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, bilateral Personal history of other malignant neoplasm of skin (02/19/12) 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) Systolic congestive heart failure with reduced left ventricular function, NYHA class 2 (10/26/10) Surgical History Anesthesia Status post arthroscopy Status post biopsy (~2014) Status post breast lumpectomy (~2008) Status post cholecystectomy Status post coronary artery bypass graft Status post hysterectomy (~2009) Family History Father Myocardial infarct Mother Maternal complication related to childbirth Sister Traumatic amputation Social History household members: children Smoking Status: Never smoker alcohol intake: never Assessment & Plan Time Spent With Patient Critical Care time: I spent a total of [] minutes of critical care time on this patient's care today; this time is exclusive of procedural time. Quality VTE Deep Vein Thrombosis/Pulmonary Embolism Present on Admission: No
[2021-08-25] MEDS: HYDROCODONE/ACET 5/325 TABLET 1 TAB PO ×2 (16:25→21:14)
--- NOTE | 2021-08-25 18:37 | PC.NURSE ---
Pt is AxOx3, pleasant and cooperative. VSS, pt c/o pain in general and recieved PRN [place] around 1650 with good effect. Pt was very sleepy today. Otherwise, no change. Pt still eating well and voiding. Continue monitor.
[2021-08-25 19:35] VITALS: BP 102/62; PULSE 70; RESP 16; TEMP 36.6; O2SAT 98
[2021-08-25] MEDS: ATORVASTATIN 20 MG TABLET 40 MG PO (21:15)
[2021-08-25] MEDS: MIRTAZAPINE 15 MG TABLET 7.5 MG PO (21:15)
[2021-08-25 23:00] VITALS: O2SAT 93
[2021-08-26 05:00] VITALS: O2SAT 98
[2021-08-26] MEDS: GABAPENTIN 300 MG CAPSULE PO ×3 (08:29→20:55)
[2021-08-26] MEDS: CALCIUM CARBONATE 600 MG TABLET PO (08:29)
[2021-08-26] MEDS: CHOLECALCIFEROL (VITAMIN D3) 1,000 UNIT TABLET 1000 UNIT PO (08:29)
[2021-08-26] MEDS: MULTIVITAMIN 1 TABLET 1 TAB PO (08:29)
[2021-08-26] MEDS: APIXABAN 5 MG TABLET PO ×2 (08:29→20:55)
[2021-08-26 08:30] VITALS: BP 102/62; BP 105/59; PULSE 57; PULSE 90; RESP 16; TEMP 36.3; O2SAT 98
[2021-08-26] MEDS: LOSARTAN 50 MG TABLET 25 MG PO (08:30)
[2021-08-26] MEDS: METOPROLOL IR 25 MG TABLET 12.5 MG PO (08:30)
[2021-08-26] MEDS: PANTOPRAZOLE DR 40 MG TABLET PO (08:32)
[2021-08-26] MEDS: ACETAMINOPHEN 325 MG TABLET 650 MG PO (10:00)
--- NOTE | 2021-08-26 11:34 | DIET.CONS2 ---
Dietary Inpatient Consultation Note Admission Date: 08/08/2021 02:55 Pt likes to drink a pepsi with lunch, okay by RD for pepsi with lunch. Diet: 08/09/21 Dinner Heart Healthy Diet Diet Modifications: Easy chew ; vanilla ensure bid, pepsi ok by RD Sodium Level: 2 gm Sodium Nutrition Percent Meal Consumed 100% 08/26/21 08:29 Percent Meal Consumed 100% 08/25/21 18:00 Percent Meal Consumed 50% 08/25/21 12:57 Percent Meal Consumed 100% 08/25/21 10:30 Percent Meal Consumed 100% 08/24/21 18:56 Percent Meal Consumed 100% 08/24/21 13:15 Electronically Signed by: Janette Horta 08/26/21 11:34 Clinical Dietitian [address] [address]
--- NOTE | 2021-08-26 12:06 | CM.DPC ---
Addendum entered by Tiffanie Morse R.N. 08/26/21 13:13: Anya from [facility] called back. Discussed patient. She indicated, she was told by discharge planners here that patient is non-decisional. Updated her that this DC party planner confirmed with collegue, that patient can make decisions. She is aware that she is here, and needs a place to live. Asked Anya about the finances, and she indicated, that she should have access to [employer]. Did update her that son was here on Thursday, and visited with patient. Gave Anya the number for medical records, as did mention to her that Dr. Lechuga had seen patient on August 14 for a psych eval. Also, gave her Megan Burr's number, the [facility] mental health case manager that is working on assessment. Let Anya know that the final assessment is still pending, but DC planners are working on finding an adult family home for patient. Original Note: DCP Cont: Spoke to Megan Bentley, assigned [facility] foster care case manager. Asked her about patient's assessment. Megan indicatede, some concerns about patient making decisions on her own. She mentioned that she did receive additional clinical information from JOSHUA Orantes, and would review today. She indicated she has to run this by her cemetery workers supervisor, and should have an answer today. Let her know that patient does know that she is in the hospital, and is also aware that she will need to be placed in an adult family home. Attemped to reach out to Anya at [facility] as well, unavailable. P: DCP to continue to work on case. Megan will be getting back to this DC Cisco Administrator today regarding final assessment, and can continue to work on placement. Tiffanie Morse RN/Application Development Team Lead
[2021-08-26] MEDS: HYDROCODONE/ACET 5/325 TABLET 1 TAB PO ×2 (14:03→20:56)
--- NOTE | 2021-08-26 15:19 | CM.DPC ---
DCP/continued: Reviewed EMR. Patient currently on LOS day# 18. Patient medically stable to d/c to [facility]. CM team awaiting finalized assessment from [facility]. Per RN, [facility] indicates that daily rate will be about 104.00 per day. ASSISTANT PROFESSOR OF MARINE BIOLOGY placed call to several adult family homes re: availability. [facility] in [place] does report they have bed but would like to see [facility] assessment. ASSISTANT PROFESSOR OF MARINE BIOLOGY faxed demographic sheet and h&p for them to review while waiting on assessment. Contact is Juliette Graff ph# [phone]. P: Pending long-term placement. CM team updated. HAWK
--- NOTE | 2021-08-26 16:09 | P.PN_ITS ---
Subjective Subjective Date Patient Seen: 08/26/21 Interval history: 86 y/o female admitted for chest pain with dementia awaiting placement. Patient reports abdominal pain, She states she has had it for 3-4 years. Exam Vital Signs (past 8 hours): - 08/26/21 08:30 08/26/21 08:30 08/26/21 11:00 Temperature 97.3 F L Pulse Rate 57 L 90 Respiratory Rate 16 Blood Pressure 105/59 L 102/62 Pulse Oximetry 98 Oxygen Delivery Method Room Air Oxygen Flow Rate 0 Oxygen Delivery Method Room Air Oxygen Flow Rate 0 Narrative Exam Narrative: Confused elderly female lying in bed Resp Other: Lungs: clear to auscultation Cardio Other: CV: RRR nl Sl S2 2/6 IRENE GI Other: Abd: soft/ non tender/ nondistended Extrem Other: no edema Objective Labs Result Diagrams: 08/21/21 05:50 08/21/21 05:50 [facility] Medical History Abdominal pain Acute pancreatitis Anticoagulated Anxiety 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) Asthma Breast cancer (~2001) CAD (coronary artery disease) Calcified nodule Cerebrovascular accident (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 right middle cerebral artery (04/27/17) Cervical cancer, FIGO stage I Cholelithiasis Chronic back pain Depression (emotion) Developmental disorder Diarrhea Essential hypertension (02/19/12) Failure to thrive in adult Fibrocystic breast disease GERD (gastroesophageal reflux disease) History of colon polyps (02/19/12) History of left breast cancer (~2008) Hyperlipidemia IBS (irritable bowel syndrome) Measles 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, bilateral Personal history of other malignant neoplasm of skin (02/19/12) 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) Systolic congestive heart failure with reduced left ventricular function, NYHA class 2 (10/26/10) Surgical History Anesthesia Status post arthroscopy Status post biopsy (~2014) Status post breast lumpectomy (~2008) Status post cholecystectomy Status post coronary artery bypass graft Status post hysterectomy (~2009) Family History Father Myocardial infarct Mother Maternal complication related to childbirth Sister Traumatic amputation Social History household members: children Smoking Status: Never smoker alcohol intake: never Assessment & Plan Assessment & Plan narrative: Dementia Slums assessment was performed earlier this hospitalization with a score of 13/30.? This is consistent with dementia.? She will need / supervision.? She does not have capacity to make her own healthcare decisions.? Her son has been difficult to contact and apparently they have been evicted from apartment.? Currently pending placement. Patient does not appear decisional. She does not have capacity to make decisions in her best interest given her dementia and Slums of 13/30. This indicates severe cognitive impairment. 2. Atrial fibrillation, felt to be permanent ? Remains rate controlled.? Is on chronic apixaban. 3.? Coronary artery disease ? Uncertain as to her previous cardiac interventions.? Has a sternal scar from prior intervention (pt does not recall what was done).? Low risk nuc this admission. 4.? Chronic GERD ? Suspect this could be contributing to her chest pain.? It may be she has esophageal spasm that is responsive to nitroglycerin.? No symptoms reported today. Started PPI. 5. CHFrEF ? Appears euvolemic presently. Patient is on ARB and beta susan therapy. Reduced losartan, with improved BP today. 6. Acute severe protein calorie malnutrition Patient has had a 7.5% weight loss over the last 3 months.? Oral nutritional supplementation as tolerated.? Continue multivitamin Result issues: Chest pain, ruled out for myocardial infarction, low risk stress test ?Code status Full ?Prophylaxis On apixaban ?Disposition: pending placement Time Spent With Patient Critical Care time: I spent a total of [] minutes of critical care time on this patient's care today; this time is exclusive of procedural time. Quality VTE Deep Vein Thrombosis/Pulmonary Embolism Present on Admission: No
--- NOTE | 2021-08-26 19:43 | PC.NURSE ---
Pt is AxOx3, needs 1 person assistance and cooperative. VSS, pt c/o headache and later general pain so PRN tylenol for headache and [place] for general pain and it was effective. Pt still eating well and sleeping between care. No other changes.
[2021-08-26 20:00] VITALS: BP 103/58; PULSE 76; RESP 20; TEMP 36.2; O2SAT 94
[2021-08-26] MEDS: MIRTAZAPINE 15 MG TABLET 7.5 MG PO (20:55)
[2021-08-26] MEDS: ATORVASTATIN 20 MG TABLET 40 MG PO (20:55)
[2021-08-26 23:00] VITALS: O2SAT 94
[2021-08-27 05:00] VITALS: O2SAT 94
[2021-08-27 07:50] VITALS: BP 138/70; PULSE 79; RESP 16; TEMP 36.3; O2SAT 97
--- NOTE | 2021-08-27 09:25 | CM.DPC ---
Addendum entered by Tiffanie Morse R.N. 08/27/21 15:50: Faxed over today's progress note to Megan Burr at [facility]. Addendum entered by Tiffanie Morse R.N. 08/27/21 15:40: Spoke to Dr. Romo, and he interviewed patient. Stated, she is aware of her surroundings, and that she does need to go to an adult family home since she was evicted. She did state, she was worried that she can't see her dog. Had already spoken to Heath Ronald, who has mentioned that he and Anya do not pursue any type of guardianship. Called Louis Guan back from [facility]. Let her know that hospitalist did see patient and can send her an updated progress note. She also gave her fax of :[phone]. She stated, this may help with her assessment. Megan's concerns are that patient may not have the cognition to sign her checks, for she may have to cover some of the fee for the adult family home. She is concerned that she does not have anyone overseeing her finances, should she not be able to do so. Did let her know that this DC Speech Writer did contact [facility], adult family home, and they have beds. Did fax over information. Asked her if her daily rate can go up due to some memory issues, and she may be able to look at this again. At this time, will fax over Dr. Romo's progress note to Megan, from today. Addendum entered by Tiffanie Morse R.N. 08/27/21 11:23: Called Kati Emery's preparation supervisor canning through [facility]. Her name is Laney Voss. Her number is: [phone]. Left her a message, did not leave patient's name due to not knowing if her voice mail is secure, but let her know that the patient is here, and what is holding up securing a place is the assessment, that Kati stated was not available due to concerns of decision making. Asked her to call this DC urban planner for more informatin, and how to get an assessment done, or updated for an increase in daily rate. Addendum entered by Tiffanie Morse R.N. 08/27/21 10:51: Spoke to Heath Cardenas, APS preparation supervisor canning. He is familiar with patient, he is Anya's preparation supervisor canning. He stated, he's not understanding why [facility] will not disclose current assessment. He stated that he would reach out to Kati Emery. He will do some research on patient. Asked him if hospitalist can call him later on his cell phone, and he indicated that this would be ok. He is questioning on how decisional patient is, and why this should hold placement, and assessment. He did indicate, they do not normally do emergency guardianship. Let him know that not having the assessment is holding up discharge, and placement can't be secured until assessment is completed, as daily rate may need to be increased. Updated Dr. Romo, he will call David today. Addendum entered by Tiffanie Morse R.N. 08/27/21 10:19: David Cardenas, preparation supervisor canning from [facility] called when this DCP was at team rounds. He left a message to call him back, can call on cell phone. His number is: [phone]. Left him another message to call back. Original Note: DCP Cont: Spoke to Kati Emery, preparation supervisor canning of Megan Burr, yesterday. She stated that they can't complete assessment, due to patient being non-decisional. She indicated that according to clinical notes, she did score low on her SLUMMS. There is a current progress note from Dr. Mckay from yesterday that indicates this. Asked for Kati's preparation supervisor canning. Her name is Laney Hunt. Her phone number is: [phone]. Called Anya at [facility] today. Let her know that since this is an open case with APS in the community, that patient will need emergency guardianship. Anya indicated, she can't do this, she is not familiar with this process. Let her know, and reminded her, that when there is an open case with APS, they initiate emergent guardianship. Asked for her preparation supervisor canning's name and number, per JOSHUA Harkins preparation supervisor canning. Her preparation supervisor canning's name is: David Dumont. His number is: [phone]. Called him and left him a message regarding situation, but did not leave patient's name due to being uncertain if it was a confidential line. In the message indicated that patient is here in need of emergent guardianship, and with this being an open case with APS, will need this done EVANS. Left this DC Speech Writer's name and number for him to call back. P: DCP to continue to work on placement. At this point, patient may be in need of emergent guardianship. Will also discuss further at team rounds with hospitalist, regarding patient's mental status. Tiffanie Morse RN/Office Associate
[2021-08-27] MEDS: METOPROLOL IR 25 MG TABLET 12.5 MG PO (10:01)
[2021-08-27] MEDS: MULTIVITAMIN 1 TABLET 1 TAB PO (10:02)
[2021-08-27] MEDS: GABAPENTIN 300 MG CAPSULE PO ×3 (10:02→20:45)
[2021-08-27] MEDS: HYDROCODONE/ACET 5/325 TABLET 1 TAB PO ×2 (10:02→16:55)
[2021-08-27] MEDS: CHOLECALCIFEROL (VITAMIN D3) 1,000 UNIT TABLET 1000 UNIT PO (10:03)
[2021-08-27] MEDS: CALCIUM CARBONATE 600 MG TABLET PO (10:03)
[2021-08-27] MEDS: LOSARTAN 50 MG TABLET 25 MG PO (10:03)
[2021-08-27] MEDS: APIXABAN 5 MG TABLET PO ×2 (10:03→20:45)
[2021-08-27] MEDS: PANTOPRAZOLE DR 40 MG TABLET PO (10:03)
[2021-08-27 11:00] VITALS: O2SAT 95
--- NOTE | 2021-08-27 14:40 | PM.PN.1 ---
Subjective Subjective Date Patient Seen: 08/27/21 Interval history: 86 y/o female admitted for chest pain with dementia awaiting placement. Patient reports facial pain, which she states is chronic. She reiterates to me today she is here because she cannot go home because her son was evicted. She understands that we are working to find somewhere for her to go. She is agreeable to go there, though she asks to be able to at least visit her dog but realizes that her dog will not be able to live with her. Exam Vital Signs (past 8 hours): - 08/27/21 07:50 08/27/21 11:00 Temperature 97.4 F L Pulse Rate 79 Respiratory Rate 16 Blood Pressure 138/70 Pulse Oximetry 97 95 Oxygen Delivery Method Room Air Oxygen Flow Rate 0 Oxygen Delivery Method Room Air Oxygen Flow Rate 0 Narrative Exam Narrative: GEN: Elderly female, no acute distress HEENT: NCAT, MMM CHEST: Respiratory excursions symmetric, CTAB CV: RRR, no M/R/G ABD: Soft, NT ND EXTR: warm, well perfused, no C/C/E SKIN: warm and dry, no rash NEURO: Right facial droop and right-sided weakness from previous stroke, alert and oriented to name, place, and approximate date (August 2021) Objective Labs Result Diagrams: 08/21/21 05:50 08/21/21 05:50 [facility] Medical History Abdominal pain Acute pancreatitis Anticoagulated Anxiety 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) Asthma Breast cancer (~2001) CAD (coronary artery disease) Calcified nodule Cerebrovascular accident (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 right middle cerebral artery (04/27/17) Cervical cancer, FIGO stage I Cholelithiasis Chronic back pain Depression (emotion) Developmental disorder Diarrhea Essential hypertension (02/19/12) Failure to thrive in adult Fibrocystic breast disease GERD (gastroesophageal reflux disease) History of colon polyps (02/19/12) History of left breast cancer (~2008) Hyperlipidemia IBS (irritable bowel syndrome) Measles 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, bilateral Personal history of other malignant neoplasm of skin (02/19/12) 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 Dementia Slums assessment was performed earlier this hospitalization with a score of 13/30.? This is consistent with dementia.? According to psychiatry consultation, patient has cognitive ability for some medical decisions but not complex medical decisions. In talking with her today she seems to comprehend the current situation and appears to be able to make a decision regarding placement at this time. 2. Atrial fibrillation, felt to be permanent ? Remains rate controlled.? Is on chronic apixaban. 3.? Coronary artery disease ? Uncertain as to her previous cardiac interventions.? Has a sternal scar from prior intervention (pt does not recall what was done).? Low risk nuc this admission. 4.? Chronic GERD ? Suspect this could be contributing to her chest pain.? It may be she has esophageal spasm that is responsive to nitroglycerin.? No symptoms reported today. Started PPI. 5. CHFrEF ? Appears euvolemic presently. Patient is on ARB and beta susan therapy. Reduced losartan, with improved BP today. 6. Acute severe protein calorie malnutrition Patient has had a 7.5% weight loss over the last 3 months.? Oral nutritional supplementation as tolerated.? Continue multivitamin Result issues: Chest pain, ruled out for myocardial infarction, low risk stress test ?Code status Full ?Prophylaxis On apixaban ?Disposition: pending placement Time Spent With Patient Critical Care time: I spent a total of [] minutes of critical care time on this patient's care today; this time is exclusive of procedural time. Quality VTE Deep Vein Thrombosis/Pulmonary Embolism Present on Admission: No
[2021-08-27 17:00] VITALS: O2SAT 95
[2021-08-27 19:35] VITALS: BP 127/60; PULSE 66; RESP 16; TEMP 36.1; O2SAT 97
[2021-08-27] MEDS: MIRTAZAPINE 15 MG TABLET 7.5 MG PO (20:45)
[2021-08-27] MEDS: ATORVASTATIN 20 MG TABLET 40 MG PO (20:45)
[2021-08-27 23:00] VITALS: O2SAT 97
[2021-08-28 05:00] VITALS: O2SAT 97
[2021-08-28 07:30] VITALS: O2SAT 98
[2021-08-28 09:00] VITALS: BP 148/80; PULSE 76; RESP 18; TEMP 36.3; O2SAT 98
[2021-08-28] MEDS: LOSARTAN 50 MG TABLET 25 MG PO (09:49)
[2021-08-28] MEDS: APIXABAN 5 MG TABLET PO ×2 (09:50→20:59)
[2021-08-28] MEDS: CHOLECALCIFEROL (VITAMIN D3) 1,000 UNIT TABLET 1000 UNIT PO (09:50)
[2021-08-28] MEDS: METOPROLOL IR 25 MG TABLET 12.5 MG PO (09:50)
[2021-08-28] MEDS: MULTIVITAMIN 1 TABLET 1 TAB PO (09:50)
[2021-08-28] MEDS: PANTOPRAZOLE DR 40 MG TABLET PO (09:50)
[2021-08-28] MEDS: GABAPENTIN 300 MG CAPSULE PO ×3 (09:50→20:59)
[2021-08-28] MEDS: CALCIUM CARBONATE 600 MG TABLET PO (09:50)
[2021-08-28] MEDS: HYDROCODONE/ACET 5/325 TABLET 1 TAB PO ×2 (09:50→17:44)
--- NOTE | 2021-08-28 15:10 | CM.DPNOTE ---
Faxed clinicals to Chelle Harkins. Liz Tomlin CM Assist.
--- NOTE | 2021-08-28 19:01 | PM.PN.1 ---
Subjective Subjective Date Patient Seen: 08/28/21 Interval history: 86 y/o female awaiting placement . 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) Asthma Breast cancer (~2001) CAD (coronary artery disease) Calcified nodule Cerebrovascular accident (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 right middle cerebral artery (04/27/17) Cervical cancer, FIGO stage I Cholelithiasis Chronic back pain Depression (emotion) Developmental disorder Diarrhea Essential hypertension (02/19/12) Failure to thrive in adult Fibrocystic breast disease GERD (gastroesophageal reflux disease) History of colon polyps (02/19/12) History of left breast cancer (~2008) Hyperlipidemia IBS (irritable bowel syndrome) Measles 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, bilateral Personal history of other malignant neoplasm of skin (02/19/12) 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) Systolic congestive heart failure with reduced left ventricular function, NYHA class 2 (10/26/10) Surgical History Anesthesia Status post arthroscopy Status post biopsy (~2014) Status post breast lumpectomy (~2008) Status post cholecystectomy Status post coronary artery bypass graft Status post hysterectomy (~2009) Family History Father Myocardial infarct Mother Maternal complication related to childbirth Sister Traumatic amputation Social History household members: children Smoking Status: Never smoker alcohol intake: never Assessment & Plan Assessment & Plan narrative: ?Dementia Slums assessment was performed earlier this hospitalization with a score of 13/30.? This is consistent with dementia.? According to psychiatry consultation, patient has cognitive ability for some medical decisions but not complex medical decisions. In talking with her today she seems to comprehend the current situation and appears to be able to make a decision regarding placement at this time. Awaiting placement 2. Atrial fibrillation, felt to be permanent ? Remains rate controlled.? Is on chronic apixaban. 3.? Coronary artery disease ? Uncertain as to her previous cardiac interventions.? Has a sternal scar from prior intervention (pt does not recall what was done).? Low risk nuc this admission. 4.? Chronic GERD ? Suspect this could be contributing to her chest pain.? It may be she has esophageal spasm that is responsive to nitroglycerin.? No symptoms reported today. Started PPI. 5. CHFrEF ? Appears euvolemic presently. Patient is on ARB and beta susan therapy. Reduced losartan, with improved BP today. 6. Acute severe protein calorie malnutrition Patient has had a 7.5% weight loss over the last 3 months.? Oral nutritional supplementation as tolerated.? Continue multivitamin Result issues: Chest pain, ruled out for myocardial infarction, low risk stress test Time Spent With Patient Critical Care time: I spent a total of [] minutes of critical care time on this patient's care today; this time is exclusive of procedural time. Quality VTE Deep Vein Thrombosis/Pulmonary Embolism Present on Admission: No
[2021-08-28 19:30] VITALS: BP 96/49; PULSE 79; RESP 18; TEMP 36.6; O2SAT 94
[2021-08-28] MEDS: MIRTAZAPINE 15 MG TABLET 7.5 MG PO (20:59)
[2021-08-28] MEDS: ATORVASTATIN 20 MG TABLET 40 MG PO (20:59)
[2021-08-28 23:00] VITALS: O2SAT 99
[2021-08-29] MEDS: ACETAMINOPHEN 325 MG TABLET 650 MG PO ×2 (00:38→20:39)
[2021-08-29 05:00] VITALS: O2SAT 99
[2021-08-29 10:36] VITALS: BP 146/72; PULSE 73; RESP 18; TEMP 36.3; O2SAT 97
[2021-08-29] MEDS: CHOLECALCIFEROL (VITAMIN D3) 1,000 UNIT TABLET 1000 UNIT PO (10:37)
[2021-08-29] MEDS: CALCIUM CARBONATE 600 MG TABLET PO (10:37)
[2021-08-29] MEDS: GABAPENTIN 300 MG CAPSULE PO ×3 (10:37→20:36)
[2021-08-29] MEDS: APIXABAN 5 MG TABLET PO ×2 (10:37→20:36)
[2021-08-29] MEDS: MULTIVITAMIN 1 TABLET 1 TAB PO (10:37)
[2021-08-29 10:38] VITALS: BP 146/72; PULSE 73
[2021-08-29] MEDS: PANTOPRAZOLE DR 40 MG TABLET PO (10:38)
[2021-08-29] MEDS: METOPROLOL IR 25 MG TABLET 12.5 MG PO (10:38)
[2021-08-29] MEDS: LOSARTAN 50 MG TABLET 25 MG PO (10:38)
[2021-08-29 11:00] VITALS: O2SAT 97
--- NOTE | 2021-08-29 14:02 | CM.DPC ---
Addendum entered by JOSHUA Marrero 08/29/21 14:30: ADD: Spoke with Lorraine [facility] CM. She has not finalized this patient's assessment because she needs to complete the following items: -Speak with designated DPOA/son Heath to review assessment; provided son Heath's number -Discuss patient's finances; patient receives approx $1,600 monthly income -Lorraine suspects patient will have a monthly participation fee and this needs to be discussed with son/DPOA and/or a designated payee -Lorraine provided patient's financial worker: Cecilia Bhaktaisralorene P# [phone], financial approval cannot be done for this assessment until a designated payee or DPKAREN LEDEZMA speaks with this financial worker Reviewed [facility] guardianship balloon pilot program information, attempting to download forms now, unable. for Cielo Rhoades P# [phone] Original Note: CREDENTIALING COORDINATOR note: Patient currently medically stable on LOS day# 21. CREDENTIALING COORDINATOR working on placement and obtaining state assessment for last 2 days. ON Thursday08-28-21 CREDENTIALING COORDINATOR spoke with Home and Community Supervisor Intelligence Analyst Laney Voss # [phone], explained to Laney that hospital needs long-term assessment to secure placement. Laney states that she was told that patient unable to make any decisions for herself and she was under the impression that guardianship was being obtained. Clarified with Laney that patient does have mild dementia she does still have capacity to make some decisions. Plus she has appointed DPOA son/Heath Cheryllorene. Laney requested last provider note be faxed to her for review of mental status. Laney reports that current rate for this patient is going to be $187.83 however, state paperwork has to be completed by DPOA or person assigned by patient. CREDENTIALING COORDINATOR met with patient in AM on 08-28 and she reports that she has no friends and that she would like her son/Heath to assist. Multiple attempts made to reach son on cell phone yesterday and today. Per nrsg notes, son was visited patient over the w/e. Notified staff that if son calls or comes by that CM team need to be notified right away. Laney encouraged CM team to look for memory care facility for placement. Therefore, CREDENTIALING COORDINATOR called all memory care facilities contracted with [facility] in [facility] for bed availability. All facilities in these two [facility] either 1)don't have female bed. 2)only take medicaid patient's after they live there 2+yrs. Placed calls were: [facility], [facility], [facility], [place], [facility]. Today CM team received email from assigned CM/Megan whom indicates that assessment not complete and that she was under impression hospital would be obtaining contact/guardian for patient. CREDENTIALING COORDINATOR immediately clarified with Megan that this is not the case. Per Megan patient has no DPOA? Faxed verifcation that patient's son/Heath is her DPOA. Also placed call to A.P.S. supervisor prop making David ph# [phone] to find out if there is open A.P.S. case right now. David reports that case was being closed. Initial report was for patient neglect. David aware of hardship CM team having with [facility] in regards to assessment. David in agreement to call Megan to update her on A.P.S. finding and closure of case. In the meantime, asked Primer Waterproofing Machine Operator/Srinivas to assist in locating son/Heath. He will be needed for admit paperwork to any memory care facility. CREDENTIALING COORDINATOR placed call to 1)[address] contact is Tiffanie ph# [phone] they are reviewing. In addition, [facility] are reviewing contact is Ana Maria ph# [phone]. Lastly [facility] is reviewing contact is Silva ph# [phone]. All three places have female medicaid memory care beds. Current obstacle comes from the state indicating that they cannot complete assessment until they speak with DPOA or patient assigned contact. JOSHUA/Rolanda taking over case and aware of all of the above. P: Attempt to find son/Heath to secure safe long-term placement. HAWK
[2021-08-29] MEDS: HYDROCODONE/ACET 5/325 TABLET 1 TAB PO (14:26)
--- NOTE | 2021-08-29 15:24 | CM.DPNOTE ---
DCP Note Spoke with David Brand, APS Antique Jewelry Repairer P#[phone]. According to our conversation: Patient had two open APS investigations; one filed re suspicion of self neglect and the other re suspicion of exploitation by son Heath, both unfounded and cases will be closed today 08.29.21 Discussed payee services and David has referred to [facility] Payee services P# [phone] ([facility]) numerous times on APS client's behalf. David recommends for assistance in clarifying patient's finances; in coordination w/patient/family, , or both JW
--- NOTE | 2021-08-29 17:02 | P.PN_ITS ---
Subjective Subjective Date Patient Seen: 08/29/21 Interval history: 86 y/o female admitted with chest pain. Cardiac work up negative. She is now awaiting placement. She has no specific complaints Exam Vital Signs (past 8 hours): - 08/29/21 10:36 08/29/21 10:38 08/29/21 11:00 Temperature 97.3 F L Pulse Rate 73 73 Respiratory Rate 18 Blood Pressure 146/72 H 146/72 H Pulse Oximetry 97 97 Oxygen Delivery Method Room Air Oxygen Flow Rate 0 0 Oxygen Delivery Method Room Air Oxygen Flow Rate 0 Narrative Exam Narrative: Pleasant female sitting in a chair Resp Other: Lungs: Clear to auscultation Cardio Other: CV: RRR nl Sl S2 3/6 IRENE GI Other: Abd: soft/ non tender/ non distended Extrem Other: No Edema Objective Labs Result Diagrams: 08/21/21 05:50 08/21/21 05:50 [facility] Medical History Abdominal pain Acute pancreatitis Anticoagulated Anxiety 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) Asthma Breast cancer (~2001) CAD (coronary artery disease) Calcified nodule Cerebrovascular accident (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 right middle cerebral artery (04/27/17) Cervical cancer, FIGO stage I Cholelithiasis Chronic back pain Depression (emotion) Developmental disorder Diarrhea Essential hypertension (02/19/12) Failure to thrive in adult Fibrocystic breast disease GERD (gastroesophageal reflux disease) History of colon polyps (02/19/12) History of left breast cancer (~2008) Hyperlipidemia IBS (irritable bowel syndrome) Measles 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, bilateral Personal history of other malignant neoplasm of skin (02/19/12) 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) Systolic congestive heart failure with reduced left ventricular function, NYHA class 2 (10/26/10) Surgical History Anesthesia Status post arthroscopy Status post biopsy (~2014) Status post breast lumpectomy (~2008) Status post cholecystectomy Status post coronary artery bypass graft Status post hysterectomy (~2009) Family History Father Myocardial infarct Mother Maternal complication related to childbirth Sister Traumatic amputation Social History household members: children Smoking Status: Never smoker alcohol intake: never Assessment & Plan Assessment & Plan narrative: Dementia Slums assessment was performed earlier this hospitalization with a score of 13/30.? This is consistent with dementia.? According to psychiatry consultation, patient has cognitive ability for some medical decisions but not complex medical decisions. In talking with her today she seems to comprehend the current situation and appears to be able to make a decision regarding placement at this time. Awaiting placement no new issues today 2. Atrial fibrillation, felt to be permanent ? Remains rate controlled.? Is on chronic apixaban. rate will controlled 3.? Coronary artery disease ? Uncertain as to her previous cardiac interventions.? Has a sternal scar from prior intervention (pt does not recall what was done).? Low risk nuc this admission. 4.? Chronic GERD ? Suspect this could be contributing to her chest pain.? It may be she has esophageal spasm that is responsive to nitroglycerin.? No symptoms reported today. Started PPI. 5. CHFrEF ? Appears euvolemic presently. Patient is on ARB and beta susan therapy. Reduced losartan, with improved BP today. 6. Acute severe protein calorie malnutrition Patient has had a 7.5% weight loss over the last 3 months.? Oral nutritional supplementation as tolerated.? Continue multivitamin Time Spent With Patient Critical Care time: I spent a total of [] minutes of critical care time on this patient's care today; this time is exclusive of procedural time. Quality VTE Deep Vein Thrombosis/Pulmonary Embolism Present on Admission: No
[2021-08-29 20:00] VITALS: BP 129/71; PULSE 82; RESP 18; TEMP 36; O2SAT 92
[2021-08-29] MEDS: MIRTAZAPINE 15 MG TABLET 7.5 MG PO (20:36)
[2021-08-29] MEDS: ATORVASTATIN 20 MG TABLET 40 MG PO (20:36)
[2021-08-29 23:00] VITALS: O2SAT 98
[2021-08-30] VITALS (9 sets, daily range): BP systolic 125–167; BP diastolic 57–72; PULSE 58–83; RESP 14–17; TEMP 36.4–36.7; O2SAT 95–98
[2021-08-30] MEDS: MULTIVITAMIN 1 TABLET 1 TAB PO (09:06)
[2021-08-30] MEDS: GABAPENTIN 300 MG CAPSULE PO ×2 (09:06→21:44)
[2021-08-30] MEDS: APIXABAN 5 MG TABLET PO ×2 (09:06→21:44)
[2021-08-30] MEDS: CHOLECALCIFEROL (VITAMIN D3) 1,000 UNIT TABLET 1000 UNIT PO (09:06)
[2021-08-30] MEDS: PANTOPRAZOLE DR 40 MG TABLET PO (09:11)
[2021-08-30] MEDS: CALCIUM CARBONATE 600 MG TABLET PO (09:11)
[2021-08-30] MEDS: METOPROLOL IR 25 MG TABLET 12.5 MG PO (09:12)
[2021-08-30] MEDS: LOSARTAN 50 MG TABLET 25 MG PO (09:13)
[2021-08-30] MEDS: HYDROCODONE/ACET 5/325 TABLET 1 TAB PO ×2 (11:44→21:43)
--- NOTE | 2021-08-30 14:53 | CM.DPNOTE ---
Addendum entered by JOSHUA Marrero 08/31/21 10:41: ADD: No completed assessment has yet been emailed from Lorraine, [facility]. JW Original Note: DCP Note Facilitated conference this afternoon w/patient, son/DPOA Heath Garrido (at bedside), this DIAMOND CLEAVER and [facility] SW Lorraine Allen (speaker phone). Lorraine verbally reviewed ppk that Heath needed to sign on patient's behalf; consent form, acknowledgement of services, rights and responsibilities. Emailed these signed documents to Lorraine per her request. Anders Joe reviewed his questions and concerns, all appropriate, re next steps in process and what to expect from [facility]. Son admitted he is still hopeful to care for his mom at home if he can secure alternative and stable living. Participation fee was discussed and anders Joe agreed to work with the adult family home, once secured, to write checks on patient's behalf that would cover patient's participation fee; which would be all of patient's current income minus $75 monthly (for patient to use). Lorraine explained that if an [facility] required a designated financial POA, Heath may need to get a legal designation and anders Joe stated understanding Then placed call to Cecilia Daley (speaker phone), patient's [facility] financial worker P#[phone], had to LM w/anedrs Joe present. Lorraine suggested this call so that financial approval could be completed Lorraine concluded by saying that patient's daily rate was $104 and that patient's assessment would be finalized today and sent to the [facility] placement team to assist with placement options. This CM team will plan to send completed assessment to the adult family [facility] that have shown an interest in patient. Anders Joe agreeable to any location for patient, states ideally patient could remain around this region and [place] Patient awake, alert, calm and cooperative throughout this visit. Pleased to see her son Following closely for coordination of placement. JOSHUA Fraga
--- NOTE | 2021-08-30 18:43 | P.PN_ITS ---
Subjective Subjective Date Patient Seen: 08/30/21 Interval history: 86 y/o female awaiting placement. no specific complaints Exam Vital Signs (past 8 hours): - 08/30/21 11:15 08/30/21 11:00 08/30/21 17:45 Pulse Oximetry 96 96 97 Oxygen Delivery Method Room Air Oxygen Flow Rate 0 0 0 08/30/21 17:00 Pulse Oximetry 97 Oxygen Delivery Method Room Air Oxygen Flow Rate 0 Oxygen Delivery Method Room Air Oxygen Flow Rate 0 Narrative Exam Narrative: ill appearing elderly female sitting slumped in a charin Resp Other: Lungs: clear to ausculatation Cardio Other: CV: Irreguarly, irregular nl Sl S2 GI Other: Abd: soft/ non tender Extrem Other: NO edema Objective Labs Result Diagrams: 08/21/21 05:50 08/21/21 05:50 [facility] Medical History Abdominal pain Acute pancreatitis Anticoagulated Anxiety 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) Asthma Breast cancer (~2001) CAD (coronary artery disease) Calcified nodule Cerebrovascular accident (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 right middle cerebral artery (04/27/17) Cervical cancer, FIGO stage I Cholelithiasis Chronic back pain Depression (emotion) Developmental disorder Diarrhea Essential hypertension (02/19/12) Failure to thrive in adult Fibrocystic breast disease GERD (gastroesophageal reflux disease) History of colon polyps (02/19/12) History of left breast cancer (~2008) Hyperlipidemia IBS (irritable bowel syndrome) Measles 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, bilateral Personal history of other malignant neoplasm of skin (02/19/12) 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) Systolic congestive heart failure with reduced left ventricular function, NYHA class 2 (10/26/10) Surgical History Anesthesia Status post arthroscopy Status post biopsy (~2014) Status post breast lumpectomy (~2008) Status post cholecystectomy Status post coronary artery bypass graft Status post hysterectomy (~2009) Family History Father Myocardial infarct Mother Maternal complication related to childbirth Sister Traumatic amputation Social History household members: children Smoking Status: Never smoker alcohol intake: never Assessment & Plan Assessment & Plan narrative: Slums assessment was performed earlier this hospitalization with a score of 13/30.? This is consistent with dementia.? According to psychiatry consultation, patient has cognitive ability for some medical decisions but not complex medical decisions. In talking with her today she seems to comprehend the current situation and appears to be able to make a decision regarding placement at this time. Awaiting placement no new issues today still awaiting placment 2. Atrial fibrillation, felt to be permanent ? Remains rate controlled.? Is on chronic apixaban. rate will controlled 3.? Coronary artery disease ? Uncertain as to her previous cardiac interventions.? Has a sternal scar from prior intervention (pt does not recall what was done).? Low risk nuc this admission. 4.? Chronic GERD ? Suspect this could be contributing to her chest pain.? It may be she has esophageal spasm that is responsive to nitroglycerin.? No symptoms reported today. Started PPI. 5. CHFrEF ? Appears euvolemic presently. Patient is on ARB and beta susan therapy. Reduced losartan, with improved BP today. 6. Acute severe protein calorie malnutrition Patient has had a 7.5% weight loss over the last 3 months.? Oral nutritional supplementation as tolerated.? Continue multivitamin Time Spent With Patient Critical Care time: I spent a total of [] minutes of critical care time on this patient's care today; this time is exclusive of procedural time. Quality VTE Deep Vein Thrombosis/Pulmonary Embolism Present on Admission: No
[2021-08-30] MEDS: ATORVASTATIN 20 MG TABLET 40 MG PO (21:43)
[2021-08-30] MEDS: MIRTAZAPINE 15 MG TABLET 7.5 MG PO (21:44)
[2021-08-31 07:00] VITALS: BP 144/74; PULSE 54; RESP 14; TEMP 35.8; O2SAT 100
[2021-08-31 08:15] VITALS: O2SAT 98
[2021-08-31] MEDS: CHOLECALCIFEROL (VITAMIN D3) 1,000 UNIT TABLET 1000 UNIT PO (08:29)
[2021-08-31] MEDS: HYDROCODONE/ACET 5/325 TABLET 1 TAB PO ×3 (08:29→20:30)
[2021-08-31] MEDS: CALCIUM CARBONATE 600 MG TABLET PO (08:29)
[2021-08-31] MEDS: GABAPENTIN 300 MG CAPSULE PO ×3 (08:29→20:33)
[2021-08-31] MEDS: MULTIVITAMIN 1 TABLET 1 TAB PO (08:29)
[2021-08-31] MEDS: APIXABAN 5 MG TABLET PO ×2 (08:29→20:31)
[2021-08-31] MEDS: METOPROLOL IR 25 MG TABLET 12.5 MG PO (08:30)
[2021-08-31] MEDS: LOSARTAN 50 MG TABLET 25 MG PO (08:30)
[2021-08-31] MEDS: PANTOPRAZOLE DR 40 MG TABLET PO (08:31)
[2021-08-31 15:15] VITALS: O2SAT 98
--- NOTE | 2021-08-31 16:04 | P.PN_ITS ---
Subjective Subjective Date Patient Seen: 08/31/21 Interval history: 86-year-old female with known coronary artery disease, permanent atrial fibrillation on apixaban, history of congestive heart failure ( unknown if systolic or diastolic), hypertension, hyperlipidemia, and prior stroke who was admitted with chest pain.? Patient underwent stress testing and had a low risk scan.? She was approved for discharge on August 08, but staff could not get her son on the phone who is her POA.? She remained in the hospital pending his ability to take her home.? APS referral was made August 08 in light of ongoing caregiving concerns.? 1 APS attempted to make contact with the patient's son, it was discovered that they had evidently been evicted.? Additionally, they reported the patient has signed him out of the bhakta with a machete, looked at them, and returned into the bhakta.? Patient has since been evaluated by Psychiatry with recommendations for guardianship.? Since that time, patient's son was able to be engaged in the process. He is willing to continue to be her durable power of collections attorney and is agreeable with placement. Patient complains of pain all over today. She otherwise does not provide much additional information. She denies any shortness of breath. Denies any other n ew complaints. She does ask for something ?strong? for her pain. Exam Vital Signs (past 8 hours): - 08/31/21 08:15 08/31/21 08:15 08/31/21 15:15 Pulse Oximetry 98 98 Oxygen Delivery Method Room Air Room Air Room Air Oxygen Delivery Method Room Air Oxygen Flow Rate 0 Narrative Exam Narrative: GEN:? Drowsy elderly female, lying in the hospital room on bed, NAD HEENT:NC, Face symmetric CHEST: Respiratory excursions symmetric, CTAB CV: RRR, no M/R/G ABD: Soft, mildly diffusely tender, ND, BT present in all 4 quadrants, no organomegaly or masses EXTR: warm, well perfused, no C/C/E SKIN: warm and dry, no rash NEURO:? 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) Asthma Breast cancer (~2001) CAD (coronary artery disease) Calcified nodule Cerebrovascular accident (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 right middle cerebral artery (04/27/17) Cervical cancer, FIGO stage I Cholelithiasis Chronic back pain Depression (emotion) Developmental disorder Diarrhea Essential hypertension (02/19/12) Failure to thrive in adult Fibrocystic breast disease GERD (gastroesophageal reflux disease) History of colon polyps (02/19/12) History of left breast cancer (~2008) Hyperlipidemia IBS (irritable bowel syndrome) Measles 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, bilateral Personal history of other malignant neoplasm of skin (02/19/12) 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 Dementia Slums assessment was performed earlier this hospitalization with a score of 13/30.? This is consistent with dementia.? She will need 24/7 supervision.? She does not have capacity to make her own healthcare decisions.? Her son is willing to continue to be her DPOA. Awaiting placement at this time. 2. Atrial fibrillation, felt to be permanent ? Remains rate controlled.? Is on chronic apixaban. 3.? Coronary artery disease Low risk nuclear stress test this admission. 4.? Chronic GERD Stable, no complaints. 5. CHF ? Appears euvolemic presently. 6. Acute severe protein calorie malnutrition Patient has had a 7.5% weight loss over the last 3 months.? Oral nutritional supplementation as tolerated.? Continue multivitamin Result issues: Chest pain, ruled out for myocardial infarction, low risk stress test ?Code status Full ?Prophylaxis On apixaban ?Disposition Await placement and safe discharge. Time Spent With Patient Critical Care time: I spent a total of [] minutes of critical care time on this patient's care today; this time is exclusive of procedural time. Quality VTE Deep Vein Thrombosis/Pulmonary Embolism Present on Admission: No
[2021-08-31 20:01] VITALS: BP 124/47; PULSE 60; RESP 16; TEMP 36.4; O2SAT 95
[2021-08-31] MEDS: ATORVASTATIN 20 MG TABLET 40 MG PO (20:30)
[2021-08-31] MEDS: MIRTAZAPINE 15 MG TABLET 7.5 MG PO (20:31)
[2021-08-31 21:00] VITALS: O2SAT 95
[2021-09-01] VITALS (8 sets, daily range): BP systolic 115–130; BP diastolic 47–60; PULSE 41–69; RESP 16–18; TEMP 35.7–36.7; O2SAT 95–100
--- NOTE | 2021-09-01 05:44 | P.PN_ITS ---
Subjective Subjective Date Patient Seen: 09/01/21 Interval history: 86-year-old female with known coronary artery disease, permanent atrial fibrillation on apixaban, history of congestive heart failure ( unknown if systolic or diastolic), hypertension, hyperlipidemia, and prior stroke who was admitted with chest pain.? Patient underwent stress testing and had a low risk scan.? She was approved for discharge on August 08, but staff could not get her son on the phone who is her POA.? She remained in the hospital pending his ability to take her home.? APS referral was made August 08 in light of ongoing caregiving concerns.? 1 APS attempted to make contact with the patient's son, it was discovered that they had evidently been evicted.? Additionally, they reported the patient has signed him out of the bhakta with a machete, looked at them, and returned into the [facility].? Patient has since been evaluated by Psychiatry with recommendations for guardianship.? Since that time, patient's son was able to be engaged in the process.? He is willing to continue to be her durable power of education program manager and is agreeable with placement. Patient reports she is having another bed date today. She continues to complain of headache and all over pain. She states she did have a pain pill a while ago but thinks she may need another. She states she did eat a good breakfast today. She also is asking for a soda and a cookie. . Exam Vital Signs (past 8 hours): - 09/01/21 03:00 Pulse Oximetry 95 Oxygen Delivery Method Room Air Oxygen Flow Rate 0 Oxygen Delivery Method Room Air Oxygen Flow Rate 0 Narrative Exam Narrative: GEN:? Alert and cooperative elderly female, lying in the hospital room on bed, NAD HEENT:NC, Face symmetric CHEST: Respiratory excursions symmetric, CTAB CV: Irregularly irregular,, no M/R/G ABD: Soft, nontenderr, ND, BT present in all 4 quadrants, no organomegaly or masses EXTR: warm, well perfused, no C/C/E SKIN: warm and dry, no rash NEURO:? 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) Asthma Breast cancer (~2001) CAD (coronary artery disease) Calcified nodule Cerebrovascular accident (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 right middle cerebral artery (04/27/17) Cervical cancer, FIGO stage I Cholelithiasis Chronic back pain Depression (emotion) Developmental disorder Diarrhea Essential hypertension (02/19/12) Failure to thrive in adult Fibrocystic breast disease GERD (gastroesophageal reflux disease) History of colon polyps (02/19/12) History of left breast cancer (~2008) Hyperlipidemia IBS (irritable bowel syndrome) Measles 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, bilateral Personal history of other malignant neoplasm of skin (02/19/12) 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 Dementia Slums assessment was performed earlier this hospitalization with a score of 13/30.? This is consistent with dementia.? She will need 24/7 supervision.? She does not have capacity to make her own healthcare decisions.? Her son is willing to continue to be her DPOA.? Awaiting placement at this time. 2. Atrial fibrillation, felt to be permanent ? Remains rate controlled.? Is on chronic apixaban. 3.? Coronary artery disease Low risk nuclear stress test this admission. 4.? Chronic GERD Stable, no complaints. 5. CHF ? Appears euvolemic presently. 6. Acute severe protein calorie malnutrition Patient has had a 7.5% weight loss over the last 3 months.? Oral nutritional supplementation as tolerated.? Continue multivitamin 7. Generalized pain and headache Continue hydrocodone and Tylenol as needed. This is a frequent complaint for her. Result issues: Chest pain, ruled out for myocardial infarction, low risk stress test ?Code status Full ?Prophylaxis On apixaban ?Disposition Await placement and safe discharge. Time Spent With Patient Critical Care time: I spent a total of [] minutes of critical care time on this patient's care today; this time is exclusive of procedural time. Quality VTE Deep Vein Thrombosis/Pulmonary Embolism Present on Admission: No
[2021-09-01 09:06] LABS: Add Manual Diff / Slide Review NO; Basophils Absolute Auto 0 /uL (0-100); Basophils Percent Auto 0.6 % (0-2); Eosinophils Absolute Auto 200 /uL (0-450); Eosinophils Percent Auto 3.1 % (2-4); Hematocrit 33.7 % (36-46); Hemoglobin 11.1 g/dL (12.0-16.0); Lymphocytes Absolute Auto 1600 /uL (1100-4500); Lymphocytes Percent Auto 30.8 % (25-40); Mean Corpuscular Hemoglobin 30.2 PG (26-34); Mean Corpuscular Volume 91.5 fL (80-100); Monocytes Absolute Auto 400 /uL (0-900); Monocytes Percent Auto 6.8 % (3-14); Neutrophils Absolute Auto 3100 /uL (1500-7000); Neutrophils Percent Auto 58.7 % (50-75); Platelet Count 206 X10^3/uL (150-400); Red Blood Cell Count 3.68 X10^6/uL (4.0-5.2); Red Cell Distribution Width 15.8 % (11.6-14.8); White Blood Cell Count 5.3 X10^3/uL (4.5-11.0)
[2021-09-01 09:15] LABS: Blood Urea Nitrogen 32 mg/dL (7-17); Calcium 8.8 mg/dL (8.4-10.2); Carbon Dioxide 32 mmol/L (22-32); Chloride 96 mmol/L (98-107); Estimated Glomerular Filt Rate > 60 mL/min (>60); Glucose 97 mg/dL (80-110); HEMOLYSIS < 15 (0-50); Potassium 4.7 mmol/L (3.4-5.1); Sodium 132 mmol/L (137-145)
[2021-09-01] MEDS: GABAPENTIN 300 MG CAPSULE PO ×3 (10:20→21:15)
[2021-09-01] MEDS: HYDROCODONE/ACET 5/325 TABLET 1 TAB PO ×2 (10:20→17:56)
--- NOTE | 2021-09-01 15:27 | CM.DPC ---
DCP Cont: Assessment is still pending at this time. Rolanda, SQUEEGEE TENDER, was able to meet with patient's son, Heath, so he can be designated POA for patient and sign checks. Meeting occurred with son, SQUEEGEE TENDER, and Louis Burr. At this time, assessment is pending. Referrals have been sent out to several facilities, pending assessment. P: DCP to continue to work on placement, and should follow up tomorrow with Megan, to see if final assessment is completed. Tiffanie Morse RN/Office Specialist
[2021-09-01] MEDS: ATORVASTATIN 20 MG TABLET 40 MG PO (21:14)
[2021-09-01] MEDS: APIXABAN 5 MG TABLET PO (21:15)
[2021-09-01] MEDS: MIRTAZAPINE 15 MG TABLET 7.5 MG PO (21:15)
[2021-09-02 03:00] VITALS: O2SAT 97
--- NOTE | 2021-09-02 05:15 | P.PN_ITS ---
Subjective Subjective Date Patient Seen: 09/02/21 Interval history: 86-year-old female with known coronary artery disease, permanent atrial fibrillation on apixaban, history of congestive heart failure ( unknown if systolic or diastolic), hypertension, hyperlipidemia, and prior stroke who was admitted with chest pain.? Patient underwent stress testing and had a low risk scan.? She was approved for discharge on August 08, but staff could not get her son on the phone who is her POA.? She remained in the hospital pending his ability to take her home.? APS referral was made August 08 in light of ongoing caregiving concerns.? 1 APS attempted to make contact with the patient's son, it was discovered that they had evidently been evicted.? Additionally, they reported the patient has signed him out of the bhakta with a machete, looked at them, and returned into the [facility].? Patient has since been evaluated by Psychiatry with recommendations for guardianship.? Since that time, patient's son was able to be engaged in the process.? He is willing to continue to be her durable power of granulator machine operator and is agreeable with placement. Patient reports she is having pain again today.? She continues to complain of headache and all over pain.? She is due for a dose of pain medications. Exam Vital Signs (past 8 hours): - 09/02/21 03:00 Pulse Oximetry 97 Oxygen Delivery Method Room Air Oxygen Delivery Method Room Air Oxygen Flow Rate 0 Narrative Exam Narrative: GEN:? Alert and cooperative elderly female, lying in the hospital room on bed, NAD HEENT:NC, Face symmetric CHEST: Respiratory excursions symmetric, CTAB CV:? Irregularly irregular,, no M/R/G ABD: Soft, mildly diffuse tenderness, ND, BT present in all 4 quadrants, no organomegaly or masses EXTR: warm, well perfused, no C/C/E SKIN: warm and dry, no rash NEURO:? Nonfocal Objective Labs Result Diagrams: 09/01/21 08:50 09/01/21 08:50 Labs: Laboratory Results - last 24 hr 09/01/21 09/01/21 08:50 08:50 WBC 5.3 RBC 3.68 L Hgb 11.1 L Hct 33.7 L MCV 91.5 MCH 30.2 MCHC 33.0 RDW 15.8 H Plt Count 206 Neut % (Auto) 58.7 Lymph % (Auto) 30.8 Lincoln % (Auto) 6.8 Eos % (Auto) 3.1 Baso % (Auto) 0.6 Neut # (Auto) 3100 Lymph # (Auto) 1600 Lincoln # (Auto) 400 Eos # (Auto) 200 Baso # (Auto) 0 Sodium 132 L Potassium 4.7 Chloride 96 L Carbon Dioxide 32 BUN 32 H Creatinine 0.82 Estimated GFR > 60 BUN/Creatinine Ratio 39.0 H Glucose 97 Calcium 8.8 PFSH Medical History Abdominal pain Acute pancreatitis Anticoagulated Anxiety 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) Asthma Breast cancer (~2001) CAD (coronary artery disease) Calcified nodule Cerebrovascular accident (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 right middle cerebral artery (04/27/17) Cervical cancer, FIGO stage I Cholelithiasis Chronic back pain Depression (emotion) Developmental disorder Diarrhea Essential hypertension (02/19/12) Failure to thrive in adult Fibrocystic breast disease GERD (gastroesophageal reflux disease) History of colon polyps (02/19/12) History of left breast cancer (~2008) Hyperlipidemia IBS (irritable bowel syndrome) Measles 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, bilateral Personal history of other malignant neoplasm of skin (02/19/12) 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 Dementia Slums assessment was performed earlier this hospitalization with a score of 13/30.? This is consistent with dementia.? She will need 08/09 supervision.? She does not have capacity to make her own healthcare decisions.? Her son is willing to continue to be her DPOA.? Awaiting placement at this time. 2. Atrial fibrillation, felt to be permanent ? Remains rate controlled.? Is on chronic apixaban. 3.? Coronary artery disease Low risk nuclear stress test this admission. 4.? Chronic GERD Stable, no complaints. 5. CHF ?Remains euvolemic. 6. Acute severe protein calorie malnutrition Patient has had a 7.5% weight loss over the last 3 months.? Oral nutritional supplementation as tolerated.? Continue multivitamin 7. Generalized pain and headache Continue hydrocodone and Tylenol as needed.? This is a frequent complaint for her. Result issues: Chest pain, ruled out for myocardial infarction, low risk stress test ?Code status Full ?Prophylaxis On apixaban ?Disposition Await placement and safe discharge. Time Spent With Patient Critical Care time: I spent a total of [] minutes of critical care time on this patient's care today; this time is exclusive of procedural time. Quality VTE Deep Vein Thrombosis/Pulmonary Embolism Present on Admission: No
[2021-09-02 08:47] VITALS: BP 143/74; PULSE 75; RESP 18; TEMP 36; O2SAT 98
[2021-09-02] MEDS: LOSARTAN 50 MG TABLET 25 MG PO (10:47)
[2021-09-02] MEDS: MULTIVITAMIN 1 TABLET 1 TAB PO (10:48)
[2021-09-02] MEDS: PANTOPRAZOLE DR 40 MG TABLET PO (10:48)
[2021-09-02] MEDS: HYDROCODONE/ACET 5/325 TABLET 1 TAB PO (10:48)
[2021-09-02] MEDS: CHOLECALCIFEROL (VITAMIN D3) 1,000 UNIT TABLET 1000 UNIT PO (10:48)
[2021-09-02] MEDS: APIXABAN 5 MG TABLET PO ×2 (10:48→20:32)
[2021-09-02] MEDS: CALCIUM CARBONATE 600 MG TABLET PO (10:49)
[2021-09-02] MEDS: METOPROLOL IR 25 MG TABLET 12.5 MG PO (10:49)
[2021-09-02] MEDS: GABAPENTIN 300 MG CAPSULE PO ×3 (10:49→20:33)
--- NOTE | 2021-09-02 13:38 | PC.NURSE ---
Patient given vicodin for complaints of head discomfort, helpful. Up in chair and resting. She has been eating at meals. Waiting for placement.
--- NOTE | 2021-09-02 14:36 | CM.DPC ---
DCP HCS Assessment SW confirmed with pt's HCS assigned worker Lorraine that her HCS is completed and pt's daily rate for an adult family home in [place] is $104.70/day. She also qualifies for the meaningful day program, which adds another $30/day for a home that has and MDA contract. We are waiting for her Medicaid financial eligibility to be confirmed before proceeding with services. At this point, her son is the DPOA for healthcare and not financial. I notified Rolanda on Thursday while she has witnessed my call with him that we need to have him appointed as her financial DPOA, as well. SW received HCS assessment via email. SW confirmed with Lorraine that they are attempting [facility] AF[facility] first but that due to pt's dementia dx she could be approved for specialized unit SDCP facility (licensed dementia unit) and daily rate would be between $187-$208 daily rate pending location and license. Attempting lower level of care at this time prior to attempting dementia unit. SW inquired with HCS Lorraine if the financial DPOA could be in-process while placing pt at LTC since son has been agreeable and cooperative and willing to write checks for LTC, awaiting response via email from oLrraine. SW followed up on following LTC facilities previously faxed and reviewing: [facility]- faxed HCS assess and updated clinicals to review [facility]- decline accepting pt [facility]- only private pay right now [facility]- faxed HCS assess and updated clinicals to review [facility]- faxed HCS assess and updated clinicals to review [facility] (SD facility)- reviewing and sent requested updated clinicals and HCS assessment to review, they can assess pt bedside and prefer in person on 09/05/21 this week between [phone]. [facility] [place] (SD[facility] facility)- left msg and faxed HCS assessment and updated clinicals Plan: SW to follow closely for calling additional AFHs tomorrow now that HCS assessment completed towards placement for patient. JOSHUA Bowei
[2021-09-02 19:30] VITALS: O2SAT 96
[2021-09-02 20:00] VITALS: BP 144/78; PULSE 64; RESP 16; TEMP 36.3; O2SAT 96
[2021-09-02] MEDS: MIRTAZAPINE 15 MG TABLET 7.5 MG PO (20:32)
[2021-09-02] MEDS: ATORVASTATIN 20 MG TABLET 40 MG PO (20:32)
--- NOTE | 2021-09-02 23:55 | PC.NURSE ---
Patient is alert and oriented except did not know day of month; does have some short term memory problems. Breath sounds CTA with RA sat of 96%. HR irregular (has history of afib) with BP of 144/78. Denied nausea. BT present and had BM earlier this shift. Reports some burning with urination but no frequency or urgency. Is able to turn herself in bed. Up to bathroom with walker and 1 assist. Declined use of SCD's so reminded to ankle wave. Denied pain. Fall risk score is high and bed alarm is activated.
[2021-09-03 07:57] VITALS: BP 147/73; PULSE 55; RESP 16; TEMP 36.1; O2SAT 97
[2021-09-03] MEDS: MULTIVITAMIN 1 TABLET 1 TAB PO (09:01)
[2021-09-03] MEDS: GABAPENTIN 300 MG CAPSULE PO ×3 (09:01→20:10)
[2021-09-03] MEDS: APIXABAN 5 MG TABLET PO ×2 (09:01→20:10)
[2021-09-03 09:02] VITALS: BP 147/73; PULSE 55
[2021-09-03] MEDS: CALCIUM CARBONATE 600 MG TABLET PO (09:02)
[2021-09-03] MEDS: LOSARTAN 50 MG TABLET 25 MG PO (09:02)
[2021-09-03] MEDS: PANTOPRAZOLE DR 40 MG TABLET PO (09:02)
[2021-09-03] MEDS: CHOLECALCIFEROL (VITAMIN D3) 1,000 UNIT TABLET 1000 UNIT PO (09:02)
[2021-09-03] MEDS: PHENOL LIQUID 100 SPRAYS/BOTTLE SPRAY MM (10:22)
--- NOTE | 2021-09-03 11:23 | P.PN_ITS ---
Subjective Subjective Date Patient Seen: 09/03/21 Interval history: 86-year-old female with known coronary artery disease, permanent atrial fibrillation on apixaban, history of congestive heart failure ( unknown if systolic or diastolic), hypertension, hyperlipidemia, and prior stroke who was admitted with chest pain.? Patient underwent stress testing and had a low risk scan.? She was approved for discharge on August 08, but staff could not get her son on the phone who is her POA.? She remained in the hospital pending his ability to take her home.? APS referral was made August 08 in light of ongoing caregiving concerns.? 1 APS attempted to make contact with the patient's son, it was discovered that they had evidently been evicted.? Additionally, they reported the patient has signed him out of the bhakta with a machete, looked at them, and returned into [facility].? Patient has since been evaluated by Psychiatry with recommendations for guardianship.? Since that time, patient's son was able to be engaged in the process.? He is willing to continue to be her durable power of corporate associate attorney and is agreeable with placement. Patient reports she is having pain again today.? She describes it being more generalized today. No new c/o. She expresses being frustrated w/remaining in the hospital. Exam Vital Signs (past 8 hours): - 09/03/21 07:57 09/03/21 09:02 Temperature 96.9 F L Pulse Rate 55 L 55 L Respiratory Rate 16 Blood Pressure 147/73 H 147/73 H Pulse Oximetry 97 Oxygen Flow Rate 0 Oxygen Delivery Method Room Air Oxygen Flow Rate 0 Narrative Exam Narrative: GEN:? Alert and cooperative elderly female, lying in the hospital room on bed, NAD, lays w/eyes closed but interacts appropriately HEENT:NC, Face symmetric CHEST: Respiratory excursions symmetric, CTAB CV:? Irregularly irregular, no M/R/G ABD: Soft, mildly diffuse tenderness, ND, BT present in all 4 quadrants, no organomegaly or masses EXTR: warm, well perfused, no C/C/E SKIN: warm and dry, no rash NEURO:? 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) Asthma Breast cancer (~2001) CAD (coronary artery disease) Calcified nodule Cerebrovascular accident (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 right middle cerebral artery (04/27/17) Cervical cancer, FIGO stage I Cholelithiasis Chronic back pain Depression (emotion) Developmental disorder Diarrhea Essential hypertension (02/19/12) Failure to thrive in adult Fibrocystic breast disease GERD (gastroesophageal reflux disease) History of colon polyps (02/19/12) History of left breast cancer (~2008) Hyperlipidemia IBS (irritable bowel syndrome) Measles 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, bilateral Personal history of other malignant neoplasm of skin (02/19/12) 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 Dementia Slums assessment was performed earlier this hospitalization with a score of 13/30, consistent with dementia.? She will need 24/7 supervision.? She does not have capacity to make her own healthcare decisions.? Her son is willing to continue to be her DPOA.? Awaiting placement at this time. One facility may be able to do an assessment today. DC team hopeful for ability to discharge soon. 2. Atrial fibrillation, felt to be permanent ? Remains rate controlled.? Is on chronic apixaban. 3.? Coronary artery disease Low risk nuclear stress test this admission. 4.? Chronic GERD Stable, no complaints. 5. CHF ?Remains euvolemic. 6. Acute severe protein calorie malnutrition Patient has had a 7.5% weight loss over the last 3 months.? Oral nutritional supplementation as tolerated.? Continue multivitamin 7. Generalized pain and headache Continue hydrocodone and Tylenol as needed.? This is a frequent complaint for her. Result issues: Chest pain, ruled out for myocardial infarction, low risk stress test ?Code status Full ?Prophylaxis On apixaban ?Disposition Await placement and safe discharge. Time Spent With Patient Critical Care time: I spent a total of [] minutes of critical care time on this patient's care today; this time is exclusive of procedural time. Quality VTE Deep Vein Thrombosis/Pulmonary Embolism Present on Admission: No
--- NOTE | 2021-09-03 15:16 | CM.DPC ---
Addendum entered by JOSHUA Bowie 09/03/21 16:03: ADD: Return call from son Heath and he states that he is in a court process with determining if he can remain at the dwelling he has been living at and therefore his final plan is to complete court process and if he can remain living there he plans to fix it up and eventually move his mom back in with him in a few months. SW confirmed that son is still agreeable with AF placement while he is working on his living situation and SW inquired if he would be agreeable to [place] or [place] or further and son states if that's what it has to be, so be it, I'm agreeable with that, would love closer but farther away is fine. SW tried to get pt to call Financial worker Cecilia but son states his phone only has 1% left and therefore he'd prefer to give SW the financial information. No pension, but around $1337 monthly for social security and and no assets and no savings and only $2.45 in the bank as they live check to check. Son states he cannot come visit this evening but plans to visit pt tomorrow 09/04/21 and will check in. SW called Financial worker Cecilia and provided the financial information and he confirms he will approve and send the info back to [facility] towards AF placement. BF Original Note: DCP Cont: Per JOSHUA Harkins, pt has been accepted at [facility] in [place] and requesting assist with [facility] for the [facility] and transport. BREA called [facility] [phone] and they faxed the new client intake form and SW completed and faxed back with signed Med List and scripts to review. SW called back and confirmed they can follow up after d/c with son or [facility] for the other two pages with financial responsibility since son Heath has not called back today. [facility] will need script of pt's Hydrocodone-acetametaphine prior to d/c to fax to [facility]. BREA called Medicaid transport and provided pt's Provider One from [facility] assessment and pt not showing as active and no Medicaid transport benefits then at this time. SW requested [facility] review her Provider One and they also show pt as inactive for Medicaid. BREA spoke to [facility] and she confirms that pt's assessment is now in their financial dept awaiting approval that pt qualifies and would have Medicaid funding and suggested calling pt's [facility] financial worker Cecilia Gee (P#[phone]) and therefore pt cannot discharge from the hospital yet until financial approval. BREA called pt's son Heath and left a msg. SW called [facility] financial worker Cecilia Gee (P#[phone]) and he confirms he needs approximate monthly income and amount in the bank and a couple financial questions answered before he can approve pt's finaical payment from Medicaid. BREA met bedside with pt and helped get [facility] Cecilia on the phone and pt unfortunately could not answer any approximate financial amounts. Therefore Cecilia confirms that he needs the information from son Heath, even via voicemail with the followin) Approximate Social Security Income per month 2) Still receive Pension and how much monthly, which pension company 3) Did Chana give away or sell any property or assets over the past 5 years? 4) Approximate amount of money in the bank Once this information can be provided to Financial Worker, then pt will be approved for a year to be placed at Adult Family Home. BREA printed a copy of these questions and left on chart in case son comes to visit while SW not here and also printed copy for SW desk. Plan: BREA to follow closely for final financial approval from [facility] to move forward with AFH placement. JOSHUA Bowie
--- NOTE | 2021-09-03 18:15 | PC.NURSE ---
Pt is AxOx3-4, cooperative and pleasant. VSS, pt c/o tooth pain and recieved PRN Oral PHenol liquid with good effect. Pt skipped breakfast and ate lunch and dinner. Pt has been sleepy all the time. No other changes.
[2021-09-03 19:00] VITALS: O2SAT 97
[2021-09-03] MEDS: HYDROCODONE/ACET 5/325 TABLET 1 TAB PO (19:34)
[2021-09-03 19:55] VITALS: BP 120/63; PULSE 59; RESP 16; TEMP 36.1; O2SAT 93
[2021-09-03] MEDS: ATORVASTATIN 20 MG TABLET 40 MG PO (20:10)
[2021-09-03] MEDS: MIRTAZAPINE 15 MG TABLET 7.5 MG PO (20:10)
[2021-09-04] VITALS (7 sets, daily range): BP systolic 133–137; BP diastolic 57–64; PULSE 63–82; RESP 16–18; TEMP 36.1–36.6; O2SAT 93–98
--- NOTE | 2021-09-04 05:14 | P.PN_ITS ---
Subjective Subjective Date Patient Seen: 09/04/21 Time Patient Seen: 13:00 Interval history: Patient sleeping in bed but awakes to voice and asking for her gabapentin. Exam Vital Signs (past 8 hours): - 09/04/21 01:00 Pulse Oximetry 93 Oxygen Delivery Method Room Air Oxygen Delivery Method Room Air Oxygen Flow Rate 0 Narrative Exam Narrative: GEN:? Alert and cooperative elderly female, lying in the hospital room on bed, NAD, lays w/eyes closed but interacts appropriately HEENT:NC, Face symmetric CHEST: Respiratory excursions symmetric, CTAB CV:? Irregularly irregular, no M/R/G ABD: Soft, mildly diffuse tenderness, ND, BT present in all 4 quadrants, no organomegaly or masses EXTR: warm, well perfused, no C/C/E SKIN: warm and dry, no rash NEURO:? 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) Asthma Breast cancer (~2001) CAD (coronary artery disease) Calcified nodule Cerebrovascular accident (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 right middle cerebral artery (04/27/17) Cervical cancer, FIGO stage I Cholelithiasis Chronic back pain Depression (emotion) Developmental disorder Diarrhea Essential hypertension (02/19/12) Failure to thrive in adult Fibrocystic breast disease GERD (gastroesophageal reflux disease) History of colon polyps (02/19/12) History of left breast cancer (~2008) Hyperlipidemia IBS (irritable bowel syndrome) Measles 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, bilateral Personal history of other malignant neoplasm of skin (02/19/12) 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) Systolic congestive heart failure with reduced left ventricular function, NYHA class 2 (10/26/10) Surgical History Anesthesia Status post arthroscopy Status post biopsy (~2014) Status post breast lumpectomy (~2008) Status post cholecystectomy Status post coronary artery bypass graft Status post hysterectomy (~2009) Family History Father Myocardial infarct Mother Maternal complication related to childbirth Sister Traumatic amputation Social History household members: children Smoking Status: Never smoker alcohol intake: never Assessment & Plan Assessment & Plan narrative: Patient awaiting placement. Progress note copied forward with A/P mostly unchanged. 1. Dementia Slums assessment was performed earlier this hospitalization with a score of 13/30, consistent with dementia.? She will need / supervision.? She does not have capacity to make her own healthcare decisions.? Her son is willing to continue to be her DPOA.? Awaiting placement at this time. One facility may be able to do an assessment today. DC team hopeful for ability to discharge soon. 2. Atrial fibrillation, felt to be permanent ? Remains rate controlled.? Is on chronic apixaban. 3.? Coronary artery disease Low risk nuclear stress test this admission. 4.? Chronic GERD Stable, no complaints. 5. CHF ?Remains euvolemic. 6. Acute severe protein calorie malnutrition Patient has had a 7.5% weight loss over the last 3 months.? Oral nutritional supplementation as tolerated.? Continue multivitamin 7. Generalized pain and headache Continue hydrocodone and Tylenol as needed.? This is a frequent complaint for her. Result issues: Chest pain, ruled out for myocardial infarction, low risk stress test ?Code status Full ?Prophylaxis On apixaban ?Disposition Discharging to adult family home on 09/05. Time Spent With Patient Critical Care time: I spent a total of [] minutes of critical care time on this patient's care today; this time is exclusive of procedural time. Quality VTE Deep Vein Thrombosis/Pulmonary Embolism Present on Admission: No
[2021-09-04] MEDS: HYDROCODONE/ACET 5/325 TABLET 1 TAB PO ×3 (10:25→20:32)
[2021-09-04] MEDS: LOSARTAN 50 MG TABLET 25 MG PO (10:26)
[2021-09-04] MEDS: GABAPENTIN 300 MG CAPSULE PO ×3 (10:26→20:24)
[2021-09-04] MEDS: CHOLECALCIFEROL (VITAMIN D3) 1,000 UNIT TABLET 1000 UNIT PO (10:26)
[2021-09-04] MEDS: METOPROLOL IR 25 MG TABLET 12.5 MG PO ×2 (10:27→20:24)
[2021-09-04] MEDS: MULTIVITAMIN 1 TABLET 1 TAB PO (10:27)
[2021-09-04] MEDS: CALCIUM CARBONATE 600 MG TABLET PO (10:30)
[2021-09-04] MEDS: APIXABAN 5 MG TABLET PO ×2 (10:30→20:24)
[2021-09-04] MEDS: PANTOPRAZOLE DR 40 MG TABLET PO (10:32)
--- NOTE | 2021-09-04 15:51 | CM.DPNOTE ---
DCP Note Received the following communication this afternoon from Cecilia Gee [facility] financial worker: Ms, Client is financially eligible for services as of 09/03/2021. You can move client . Thank you. Placed call to Silva at [facility] in [place], [address], [place] [address] P# [phone]. Updated w/above. Silva wanting to move patient in morning 09.05.21. Son Heath does not have transportation. Completed [facility] transport form; spoke w Rosie Riley, [facility] transport- Patient is showing as pending, she has placed call to Cecilia Strickland financial worker. Meanwhile, placed call to [facility] to investigate private cost, using [facility], [facility] quotes $[address] from to [facility] transport scheduled for [phone] pick 09.05.21...in order to expedite discharge process Completed medical relief [facility] form w/above mentioned details. Signed this CLINICAL ABSTRACTOR's name and will plan to discuss w/[facility]NO [facility] if we do not hear back from [facility] transport services this afternoon Following closely for this coordination, will plan to review w/staff and patient in preparation for tomorrow JW
--- NOTE | 2021-09-04 15:56 | PC.NURSE ---
Pt resting at intervals all day. Med for discomfort this afternoon w/ fair relief. SpO2 95% RA Awaiting placement Call light w/in reach, bed alarm on for pt safety. Continue w/plan of care.
[2021-09-04] MEDS: ATORVASTATIN 20 MG TABLET 40 MG PO (20:23)
[2021-09-04] MEDS: MIRTAZAPINE 15 MG TABLET 7.5 MG PO (20:25)
[2021-09-05 05:08] LABS: Add Manual Diff / Slide Review NO; Basophils Absolute Auto 0 /uL (0-100); Basophils Percent Auto 0.6 % (0-2); Eosinophils Absolute Auto 200 /uL (0-450); Eosinophils Percent Auto 2.9 % (2-4); Hematocrit 28.2 % (36-46); Hemoglobin 9.5 g/dL (12.0-16.0); Lymphocytes Absolute Auto 2100 /uL (1100-4500); Lymphocytes Percent Auto 37.3 % (25-40); Mean Corpuscular HGB Conc 33.7 % (30-36); Mean Corpuscular Hemoglobin 30.6 PG (26-34); Mean Corpuscular Volume 90.8 fL (80-100); Monocytes Absolute Auto 600 /uL (0-900); Monocytes Percent Auto 9.9 % (3-14); Neutrophils Absolute Auto 2800 /uL (1500-7000); Neutrophils Percent Auto 49.3 % (50-75); Platelet Count 192 X10^3/uL (150-400); Red Blood Cell Count 3.11 X10^6/uL (4.0-5.2); White Blood Cell Count 5.7 X10^3/uL (4.5-11.0)
[2021-09-05 05:17] LABS: BUN Creatinine Ratio 43.5 (6-22); Blood Urea Nitrogen 37 mg/dL (7-17); Calcium 8.2 mg/dL (8.4-10.2); Carbon Dioxide 29 mmol/L (22-32); Chloride 103 mmol/L (98-107); Estimated Glomerular Filt Rate > 60 mL/min (>60); Glucose 82 mg/dL (80-110); HEMOLYSIS < 15 (0-50); Potassium 4.9 mmol/L (3.4-5.1); Sodium 134 mmol/L (137-145)
--- NOTE | 2021-09-05 08:20 | PM.DS.1 ---
History of Present Illness History of Present Illness Date Patient Seen: 09/05/21 Time Patient Seen: 08:35 Chief complaint: Chest Pain Narrative: 86-year-old female with a history of atrial fibrillation anticoagulated on apixaban, history of heart failure, hypertension, hyperlipidemia, prior history of CVA, presents to the emergency department with chest pain.? She took nitroglycerin at home and the pain resolved.? States someone called the ambulance, but does not remember who. Denies shortness of breath, does endorse having pain on the left side of her neck, right arm. Denies nausea or vomiting, denies having diarrhea. Positive for urinary burning and constipation, has not had a bm in Patient previously here in late June for adult failure to thrive, per patient she is living in a better situation. Chest x-ray is only noting COPD with no consolidation.? She is afebrile, blood pressure is 202/98 however in the ED her systolic blood pressure was actually 170s, heart rate 82, respiratory rate 20, oxygen saturation 96% on room air, she weighs 62.2 kg with a BMI of 20.2.? CBC and chemistries are unremarkable, liver enzymes are within normal limits, troponins x2 are not negative, UA is negative for UTI and COVID-19 PCR is negative. She recently had a 2 day admission for adult failure to thrive.? She has a history of atrial fibrillation and an echocardiogram was done on July 10 and she was found to have an EF of 35-40% likely due to ischemic cardiomyopathy.? She was discharged on metoprolol and losartan. She states she and her son moved into the house they previously lived in and had to give up her trailer. Discharge Providers Provider Date of admission: 08/08/21 02:55 Discharge Date: 09/05/21 Consults: 08/07/21 21:08 Consult to [facility] Stat Comment: 08/08/21 19:32 Consult to Dietitian, Adult Routine Comment: Reason For Exam: poor nutrition Consult to [facility] [employer] Routine Comment: 08/09/21 16:30 Consult to Occupational Therapy Evaluate & Treat Comment: cognitive assessment/SLUMS Physician Instructions: Evaluate and treat 08/10/21 11:44 Consult to Physical Therapy Evaluate & Treat Comment: Physician Instructions: Evaluate and Treat 08/14/21 10:10 Consult to Physician Routine Comment: Consulting Provider: Taqueria Saez Reason for consultation: Reactive depression and question of competency Has provider been notified: No 08/14/21 10:40 Consult to Physician Routine Comment: Failure Thrive, poss depression/anx, cognitive dec Consulting Provider: Taqueria Saez Reason for consultation: Failure Thrive, poss depression/anx, cognitive dec Has provider been notified: Yes 08/17/21 09:27 Consult to Pastoral Services Routine Comment: Very sad about no contact with son, now salvage determiner Discharge provider: Robi Roman DO Summary Hospital Course Discharge Diagnosis: 1. Dementia with SLUMS of 2. Atrial fibrillation, felt to be permanent 3.? Coronary artery disease 4.? Chronic GERD 5. CHF 6. Acute severe protein calorie malnutrition 7. Generalized pain and headache Resolved issues: Chest pain, ruled out for myocardial infarction, low risk stress test Hospital Course: 86-year-old female with known coronary artery disease, permanent atrial fibrillation on apixaban, history of congestive heart failure ( unknown if systolic or diastolic), hypertension, hyperlipidemia, and prior stroke who was admitted with chest pain.? Patient underwent stress testing and had a low risk scan.? She was approved for discharge on August 08, but staff could not get her son on the phone who is her POA.? She remained in the hospital pending his ability to take her home.? APS referral was made August 08 in light of ongoing caregiving concerns.? [facility] attempted to make contact with the patient's son, it was discovered that they had evidently been evicted.? Additionally, they reported the patient has signed him out of the bhakta with a machete, looked at them, and returned into the [facility].? Patient has since been evaluated by Psychiatry with recommendations for guardianship given her SLUMS was consistent with dementia and will need / supervision.?She was deemed not to have capacity to make her own decisions. Since that time, patient's son was able to be engaged in the process.? He is willing to continue to be her durable power of securities attorney and is agreeable with placement. Able to be placed at adult family home through the [facility] after 28 days of admission in the hospital. Her home meds were continued as is other than her losartan changed from 50mg to 25mg daily, her metoprolol tartrate from 12.5mg daily to BID, remeron was added and a multivitamin. Exam Vital Signs (past 8 hours): Oxygen Delivery Method Room Air Oxygen Flow Rate 0 Narrative Exam Narrative: GEN:? Alert and cooperative elderly female, lying in the hospital room on bed, NAD, lays w/eyes closed but interacts appropriately HEENT:NC, Face symmetric CHEST: Respiratory excursions symmetric, CTAB CV:? Irregularly irregular, no M/R/G ABD: Soft, mildly diffuse tenderness, ND, BT present in all 4 quadrants, no organomegaly or masses EXTR: warm, well perfused, no C/C/E SKIN: warm and dry, no rash NEURO:? Nonfocal Objective Labs Result Diagrams: 09/05/21 05:00 09/05/21 05:00 Labs: Laboratory Results - last 24 hr 09/05/21 09/05/21 05:00 05:00 WBC 5.7 RBC 3.11 L Hgb 9.5 L Hct 28.2 L MCV 90.8 MCH 30.6 MCHC 33.7 RDW 16.0 H Plt Count 192 Neut % (Auto) 49.3 L Lymph % (Auto) 37.3 [place] % (Auto) 9.9 Eos % (Auto) 2.9 Baso % (Auto) 0.6 Neut # (Auto) 2800 Lymph # (Auto) 2100 [place] # (Auto) 600 Eos # (Auto) 200 Baso # (Auto) 0 Sodium 134 L Potassium 4.9 Chloride 103 Carbon Dioxide 29 BUN 37 H Creatinine 0.85 Estimated GFR > 60 BUN/Creatinine Ratio 43.5 H Glucose 82 Calcium 8.2 L PFSH Medical History Abdominal pain Acute pancreatitis Anticoagulated Anxiety 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) Asthma Breast cancer (~2001) CAD (coronary artery disease) Calcified nodule Cerebrovascular accident (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 right middle cerebral artery (04/27/17) Cervical cancer, FIGO stage I Cholelithiasis Chronic back pain Depression (emotion) Developmental disorder Diarrhea Essential hypertension (02/19/12) Failure to thrive in adult Fibrocystic breast disease GERD (gastroesophageal reflux disease) History of colon polyps (02/19/12) History of left breast cancer (~2008) Hyperlipidemia IBS (irritable bowel syndrome) Measles 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, bilateral Personal history of other malignant neoplasm of skin (02/19/12) 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) Systolic congestive heart failure with reduced left ventricular function, NYHA class 2 (10/26/10) Surgical History Anesthesia Status post arthroscopy Status post biopsy (~2014) Status post breast lumpectomy (~2008) Status post cholecystectomy Status post coronary artery bypass graft Status post hysterectomy (~2009) Family History Father Myocardial infarct Mother Maternal complication related to childbirth Sister Traumatic amputation Social History household members: children Smoking Status: Never smoker alcohol intake: never Discharge Plan Discharge Plan Patient Disposition: Released, Other Other facility: Adult family fdc Transportation: Wheelchair I certify the postop hospital jail care is medically necessary on a continuing basis for any conditions for which he/ she received care during this hospitalization.: Yes The receiving facility has agreed to accept transfer and provide medical treatment.: Yes Discharge orders & Medications Discharge Orders: Discharge (Order); Ordered 09/05/21 Ordered By: Robi Roman Prescriptions: New losartan 50 mg Tablet 25 mg PO DAILY Qty: 30 0RF mirtazapine 15 mg Tablet 7.5 mg PO BEDTIME Qty: 30 0RF multivitamin with folic acid [Tab-A-Dex] 400 mcg Tablet 1 tab PO DAILY Qty: 30 0RF metoprolol tartrate 25 mg Tablet 12.5 mg PO BID Qty: 30 0RF Continued apixaban 5 mg tablet 5 mg PO BID Qty: 180 1RF pantoprazole 40 mg tablet,delayed release (DR/EC) 40 mg PO DAILY Qty: 90 0RF gabapentin 300 mg capsule See Rx Instructions .ROUTE .COMPLEX Qty: 270 3RF Hold Instructions: stopped at [place] Dose Instruction: TAKE ONE CAPSULE BY MOUTH THREE TIMES DAILY Rx Instructions: TAKE ONE CAPSULE BY MOUTH THREE TIMES DAILY nitroglycerin [Nitrostat] 0.4 mg tablet, sublingual See Rx Instructions Sublingual PRN PRN (Reason: Chest Pain) Qty: 30 0RF Rx Instructions: 1 tab under tongue every five minutes up to three times, call 911 if no relief. atorvastatin 40 mg tablet 40 mg PO BEDTIME Qty: 90 0RF (DME) Handicap Parking Qty: 1 0RF Dose Instruction: As directed Rx Instructions: Patient unable to walk 200 feet without stopping to rest. hydrocodone-acetaminophen 5-325 mg tablet 1 tab PO BID PRN (Reason: pain) Qty: 30 0RF diclofenac sodium 1 % gel 2 g topical QID Qty: 100 0RF Rx Instructions: apply to right elbow, right wrist or right hand; for hand includes palm/fingers/back of hand Discontinued (DME) Aerochamber MV Spacer See Rx Instructions .ROUTE .MEDSUPPLY Qty: 1 0RF Rx Instructions: As directed losartan 50 mg tablet 50 mg PO DAILY Qty: 90 1RF metoprolol tartrate 25 mg tablet 12.5 mg PO DAILY Qty: 45 0RF Diet/Activity/Treatments Diet: Regular Liquid consistency: Normal/Thin Food texture: Soft Diet comment: Easy chew; vanilla ensure BID, pepsi okay Activity: As tolerated w/assist Oxygen: N/A Visit Report/Discharge Packet Instructions: Vertigo, How to Prevent Falls Discharge Data Attending Provider: Mirtha Martinez VTE Deep Vein Thrombosis/Pulmonary Embolism Present on Admission: No
[2021-09-05] MEDS: MULTIVITAMIN 1 TABLET 1 TAB PO (09:14)
[2021-09-05] MEDS: GABAPENTIN 300 MG CAPSULE PO (09:14)
[2021-09-05] MEDS: CHOLECALCIFEROL (VITAMIN D3) 1,000 UNIT TABLET 1000 UNIT PO (09:14)
[2021-09-05] MEDS: METOPROLOL IR 25 MG TABLET 12.5 MG PO (09:14)
[2021-09-05 09:15] VITALS: BP 133/64
[2021-09-05] MEDS: APIXABAN 5 MG TABLET PO (09:15)
[2021-09-05] MEDS: CALCIUM CARBONATE 600 MG TABLET PO (09:15)
[2021-09-05] MEDS: LOSARTAN 50 MG TABLET 25 MG PO (09:15)
[2021-09-05 09:46] VITALS: BP 146/72; PULSE 62; RESP 19; O2SAT 96
[2021-09-05] MEDS: PANTOPRAZOLE DR 40 MG TABLET PO (10:14)
[2021-09-05] MEDS: HYDROCODONE/ACET 5/325 TABLET 1 TAB PO (10:46)
[2021-09-05 10:52] LABS: COVID19 -Nasal RAPID Negative (Negative)
--- NOTE | 2021-09-05 10:56 | PC.NURSE ---
Pt condition remains essentially unchanged. Pt assisted w/shower, Pt D/C to [facility] in stable condition Son Heath called DP at time pt was discharged.
--- NOTE | 2021-09-05 10:58 | CM.DPNOTE ---
DC Note Coordinating DCP yesterday and this morning. [facility] scheduled for p/u between [id number], payment via medical relief [facility] funds, approved by Shahana Gonzalez, CM Manager Transplant and [facility], Chief Clinical Officer. Meanwhile, communication continued between this MEDICAID SPECIALIST and [email or web address], w/[facility] transport. Geneva received confirmation from financial worker Cecilia yesterday, 09.04.21, that patient should now be eligible for transportation services This morning, emailed Geneva Riley the following reasoning for request for w/c escobar Zayas is not a flight risk but she does benefit from one person assist or stand by assist (SBA) with transfers. She has dementia, is frail, and I think a wheelchair transport would be safest. I booked [facility] at 1015 just to hold the spot, do you contract with them? She doesn?t need a medical record assistant or to be restrained. Never heard back from Geneva or other rep at [facility] transport and needed to keep the transport slot booked through [facility] transport DC Summary completed by Dr Roman and med list updated, RX printed, per request from Rosy at [facility] P# [phone] F# [phone]. Spoke w/Silva Boothe, metal tile setter and provider at [facility] P# [phone], confirmed patient's p/u time and Silva confirms she is awaiting patient's arrival. Alerted Silva that clinical DC packet traveling w/[facility] passenger coach driver. Patient given scheduled pain med by POLLY Bean to assist w/lengthy transport via w/c. Son Heath called at 1030; updated w/[facility] name, address and phone number. Heath states appreciation and agreeable to plan. Strongly encouraged Heath to call patient this evening as she gets settled in at her new AF, Heath agreed. Patient tearful, also expresses gratitude. patient responds well to comforting, supportive words about discharge plan, patient knows son Heath aware of patient's whereabouts. Plan: DC to [facility] P# [phone], [place] via [facility], organic chemist care. [facility] MARIA M Peters in close contact w/this [facility] Rolanda Colin MEDICAID SPECIALIST
--- NOTE | 2021-09-09 12:55 | CM.DPNOTE ---
Addendum entered by Liz Tomlin 09/24/21 14:15: Followed up with May at [facility] and she said she spoke to Medicaid's human resources compliance manager and she said they will receive payment from them during the week of 09/30 to 10-04. I also placed a call earlier to [facility] at Medicaid Transport who assured me that she called [facility] last week and was told May was on vacation. Liz Tomlin CM Assist. Original Note: Late entry: Called Medicaid [place] and spoke to [facility] at 12:44 today letting her know Estella Garrido was picked up on by [facility]. I explained that we initially contacted her office, but did not receive a follow up call. She asked for the [facility] number, which I gave in addition to the quote of $372.04. She said she will contact [facility] now to let them know they will pay the transport cost. Liz Tomlin CM Experimental Flight Test Mechanic.
== END 2021-09-05 10:50 | disposition home or self-care (01) ==
LOC: ED 08-08 02:54 → AC 08-08 02:56
PROVIDERS: Family Medicine; Student in an Organized Health Care Education/Training Program; Admitting Provider Nurse Practitioner Family; Emergency Provider Emergency Medicine; Visit Provider Nurse Practitioner Family
DX: R07.9 Chest pain, unspecified (principal); I48.91 Unspecified atrial fibrillation; I25.10 Atherosclerotic heart disease of native coronary artery without angina pectoris; F41.9 Anxiety disorder, unspecified; Z79.01 Long term (current) use of anticoagulants; Z86.73 Personal history of transient ischemic attack (TIA), and cerebral infarction without residual deficits; F03.90 Unspecified dementia, unspecified severity, without behavioral disturbance, psychotic disturbance, mood disturbance, and anxiety; E43 Unspecified severe protein-calorie malnutrition; I50.9 Heart failure, unspecified; K21.9 Gastro-esophageal reflux disease without esophagitis; R51.9 Headache, unspecified; I10 Essential (primary) hypertension; E78.5 Hyperlipidemia, unspecified; Z20.822 Contact with and (suspected) exposure to COVID-19
CPT/HCPCS: 36415; 71045; 78452; 80048; 80053; 80061; 81001; 81003; 81015; 82550; 83690; 83735; 84484; 85025; 87077; 87086; 87186; 87635; 90792; 93005; 93017; 94760; 96374; 97110; 97116; 97161; 97165; 97530; 99284; C9803; G0378; A9502; J2405; J2785